=== PATIENT | male | born 1965 | race Caucasian/White ===

== ENCOUNTER 2019-06-02 00:29 | Outpatient (CLI) | payer OTHER, SELFPAY ==
--- NOTE | 2019-06-02 08:00 | DI.NM_ITS ---
SYMPTOMS/DIAGNOSIS: NAUSEA, VOMITING, NOT IMPROVED AFTER PYLORIC DILATATION, R11.2, PENDING PYLOROPLASTY GASTRIC EMPTYING STUDY: The patient consumed a pack of oatmeal, two pieces of bread diluted in 120 cc's of water mixed with a 1.1 millicurie of Technetium 99 M Sulfur Colloid. At one hour 58.3%,.at two hours 21.6% and at 4 hours 15.9% of the activity remains. These values are within normal limits and are consistent with a 88% gastric emptying.
== END 2019-06-02 00:49 ==
PROVIDERS: Visit Provider Surgery
DX: R11.2 Nausea with vomiting, unspecified (principal); Z98.890 Other specified postprocedural states
CPT/HCPCS: 78265

== ENCOUNTER 2022-06-27 08:27 | Observation (INO) | payer OTHER, SELFPAY ==
[2022-06-27] VITALS (49 sets, daily range): BP systolic 123–210; BP diastolic 68–126; PULSE 66–107; RESP 11–28; TEMP 36.4–37.1; O2SAT 89–99
--- NOTE | 2022-06-27 08:45 | RT.EKG_ITS ---
APPROVED REPORT Exam: Resting ECG Reason for Exam: WEAKNESS Patient Location: E HR:92 bpm ECG Measurements Heart Rate 92 AXIS VT 147 P 60 QRSd 103 QRS -20 QT 376 T 13 QTc 466 Conclusion Sinus rhythm...normal P axis, V-rate 60- 99
[2022-06-27 09:00] LABS: Abs Immature Grans 0.04 10^3/uL (0.0-0.06); Absolute Basophil Count 0.03 10^3/uL (0.0-0.2); Absolute Eosinophil Count 0.04 10^3/uL (0.0-0.7); Absolute Lymphocyte Count 0.91 10^3/uL (1.2-3.4); Absolute Monocyte Count 0.44 10^3/uL (0.1-0.8); Absolute Neutrophil Count 6.84 10^3/uL (1.2-6.7); Basophils % 0.4; Eosinophils % 0.5; HCT 41.3 % (40.0-50.0); HGB 14.1 g/dL (13.5-17.5); Immature Grans % 0.5; MCH 27.8 pg (27.0-33.0); MCHC 34.1 % (32.0-36.0); MCV 82 fL (80-95); MPV 12.4 fL (8.0-11.0); Monocytes % 5.3; Neutrophils % 82.3; Platelet Count 190 10^3/uL (130-400); RBC 5.07 10^6/uL (4.36-5.78); RDW 13.2 % (11.8-14.1)
[2022-06-27 09:14] LABS: ALT 40 U/L (16-63); AST 27 U/L (15-37); Alkaline Phosphatase 133 U/L (46-116); Anion Gap 10.4 mmol/L (3-11); BUN 15 mg/dL (7-18); Bilirubin, Total 1.1 mg/dL (0.2-1.0); CO2 26.6 mmol/L (21.0-32.0); CREATININE 0.9 mg/dL (0.70-1.30); Calcium 9.1 mg/dL (8.5-10.1); Chloride 101 mmol/L (98-107); Glucose 156 mg/dL (74-106); Potassium 3.2 mmol/L (3.5-5.1); Sodium 138 mmol/L (136-145); Total Protein 7.6 g/dL (6.4-8.2)
[2022-06-27] MEDS: Normal Saline 1,000 ML 1000 ML IV (09:33)
[2022-06-27] MEDS: Droperidol 5 MG/2 ML VIAL 2.5 MG IVP ×2 (09:33→10:43)
[2022-06-27] MEDS: diphenhydrAMINE 50 MG/ML VIAL 25 MG IVP (12:00)
[2022-06-27] MEDS: Metoclopramide 10 MG/2 ML VIAL IVP (12:00)
[2022-06-27] MEDS: Normal Saline 100 ML 50 ML (12:03)
--- NOTE | 2022-06-27 12:35 | W.ED.GENAD ---
Discharge Plan Disposition Patient Disposition: [facility] INPATIENT Condition: Stable Discharge Details Clinical Impression: Cyclical vomiting Admit Date/Time: 06/27/22 12:42 Admit Provider: Nishant Quinonez Attending Provider: Nishant Quinonez Primary Care Provider: CHARLES NOEL ED Provider: Charisse Valadez Discharge Data Discharge Date/Time-TO BE ENTERED AT DEPARTURE: 06/27/22 13:41 Medical Decision Making Patient appears well initially, he has not actively vomiting He is received numerous doses of medication and is persistently symptomatic Received 5 mg of droperidol, Reglan, Benadryl, Ativan, still dry heaving when I entered the room Potassium of 3.2, is unable to tolerate p.o., given IV potassium Case discussed with Dr. Quinonez who is agreeable to admission Medical Records Medical records reviewed: Yes I reviewed the patient's medical records. HPI General Date/Time Provider Initiated Documentation: 06/27/22 08:49. HPI Narrative: This 56-year-old male with past medical history of cyclic vomiting syndrome presents with report of uncontrolled vomiting for the past week. Reportedly was assessed at [facility] this morning and discharged home without evaluation. Denies any chest pain, abdominal pain, shortness of breath. States he has had this for years and when the nausea and vomiting becomes uncontrolled similar to this, it worsening. He does not smoke marijuana or use any illicit drugs. He denies any Inciting factors from a mental health standpoint. Denies any blood in vomitus. Denies any diarrhea. Related Data Home Medications Medication Instructions Recorded Confirmed albuterol sulfate 90 mcg/actuation 2 puff inhalation Q4H PRN 04/28/22 06/27/22 aerosol inhaler (ProAir HFA) amitriptyline 25 mg tablet 25 mg PO DAILY 04/28/22 06/27/22 amlodipine 10 mg tablet 10 mg PO DAILY 04/28/22 06/27/22 budesonide-formoterol HFA 80 2 puff inhalation BID 04/28/22 04/29/22 mcg-4.5 mcg/actuation aerosol inhaler (Symbicort) cyclobenzaprine 10 mg tablet 10 mg PO TID PRN 04/28/22 04/29/22 epinephrine 0.3 mg/0.3 mL 0.3 mg IM DIRECTED 04/28/22 04/29/22 injection, auto-injector (EpiPen) escitalopram oxalate 20 mg tablet 20 mg PO DAILY 04/28/22 06/27/22 (Lexapro) loratadine 10 mg tablet (Claritin) 10 mg PO DAILY 04/28/22 04/29/22 magnesium gluconate 27 mg 27 mg PO DAILY 04/28/22 04/29/22 magnesium (500 mg) tablet melatonin 3 mg capsule 3 mg PO HS PRN 04/28/22 04/29/22 mirtazapine 30 mg tablet 30 mg PO DAILY 04/28/22 06/27/22 nabumetone 500 mg tablet (Relafen) 500 mg PO BID 04/28/22 04/29/22 omeprazole 40 mg capsule,delayed 40 mg PO DAILY 04/28/22 04/29/22 release polyethylene glycol 3350 17 17 g PO DAILY PRN 04/28/22 04/29/22 gram/dose oral powder (Miralax) prochlorperazine 25 mg rectal 25 mg [place] BID PRN 04/28/22 04/29/22 suppository (Compazine) prochlorperazine maleate 10 mg 10 mg PO Q6H PRN 04/28/22 tablet (Compazine) risperidone 1 mg tablet 1 mg PO DAILY 04/28/22 04/29/22 sumatriptan 20 mg/actuation nasal 20 mg intranasal Q2H PRN 04/28/22 04/29/22 spray tamsulosin 0.4 mg capsule 0.4 mg PO DAILY 04/28/22 04/29/22 ibuprofen 800 mg tablet 800 mg PO PRN PRN 06/27/22 06/27/22 metoprolol succinate 50 mg 50 mg PO DAILY 06/27/22 06/27/22 tablet,extended release 24 hr Allergies Allergy/AdvReac Type Severity Reaction Status Date / Time peanut Allergy Severe Anaphylaxis Verified 06/27/22 08:37 tree nut Allergy Severe Anaphylaxis Verified 06/27/22 08:37 acetaminophen [From Vicodin] Allergy vomiting Verified 06/27/22 08:37 egg Allergy Vomiting Verified 06/27/22 08:37 Fish Containing Products Allergy vomiting Verified 06/27/22 08:37 house dust mite Allergy Verified 06/27/22 08:37 hydrochlorothiazide Allergy laryngeal Verified 06/27/22 08:37 spasm hydrocodone [From Vicodin] Allergy vomiting Verified 06/27/22 08:37 metoclopramide [From Reglan] Allergy Hives Verified 06/27/22 08:37 mold Allergy Verified 06/27/22 08:37 General Stated Complaint: Nausea/Vomit/Diar FADI: 3 Review of Systems All systems reviewed & are unremarkable except as noted in HPI and below PFSH All Active Problems (Updated 06/30/22 @ 14:03 by ELEN Lopez) Cyclical vomiting (Acute) Tinnitus, bilateral (Acute) Sensorineural hearing loss (SNHL) of both ears (Acute) Sensation of fullness in right ear (Acute) Medical History (Updated 06/30/22 @ 14:03 by ELEN Lopez) Adult ADHD Allergic rhinitis Chest pain Dysuria GERD (gastroesophageal reflux disease) Hypertensive disorder Insomnia Jaw pain Mild intermittent asthma Nausea and vomiting Obesity CARLOS (obstructive sleep apnea) Otitis externa of right ear Peanut-induced anaphylaxis Pyloric stenosis Severe recurrent major depression without psychotic features Suicidal thoughts Temporomandibular joint disorder Tremor Unilateral inguinal hernia Surgical History (Updated 04/29/22 @ 11:08 by Joselyn QUINONEZ) H/O colonoscopy H/O endoscopy 06/10/2019 upper gastrointestinal endoscopy w/ dilation of gastric outlet for obstruction H/O hernia repair History of esophagogastroduodenoscopy (EGD) 05/12/2019 hiatal hernia History of hand surgery History of hydrocelectomy Family History Father Depressive disorder Arteriosclerotic cardiovascular disease (ASCVD) Social History (Updated 04/29/22 @ 11:08 by Joselyn QUINONEZ) Smoking/Tobacco Use Status: Never Smoking risk assessment performed?: Yes Alcohol Intake: former Drug use: Never Substance use type: does not use Communication Needs: Corrective Lenses 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 Do you feel safe at home: Yes Do you feel safe in your relationship?: Yes Exam Const General: cooperative and comfortable Orientation: alert and oriented x3 Eyes Pupils: PERRL Chest Chest: normal inspection of the chest Resp Effort & Inspection: normal respiratory effort Auscultation: clear to auscultation bilaterally Cardio Rate: regular rate GI Auscultation: normal bowel sounds Rectal Exam: visual inspection normal Other: non-tender Skin General skin exam: no rashes or lesions noted Neuro General: patient alert and patient oriented x3 Course Vital Signs Vital signs: Vital Signs Temperature 36.4 C L 06/27/22 08:35 Pulse 96 H 06/27/22 08:35 Respiratory Rate 18 06/27/22 08:35 Blood Pressure 210/126 H 06/27/22 08:35 Pulse Oximetry 95 06/27/22 08:35 Temperature 36.4 C L 06/27/22 08:35 Temperature Source Temporal Artery Scan 06/27/22 08:35 Pulse 87 06/27/22 10:46 Pulse 94 H 06/27/22 10:50 Respiratory Rate 24 06/27/22 10:50 Respiratory Effort Non-Labored 06/27/22 08:37 Blood Pressure 183/98 H 06/27/22 10:46 Blood Pressure Mean 120 06/27/22 10:46 Blood Pressure Position Sitting 06/27/22 08:35 Pulse Oximetry 96 06/27/22 10:50 Oxygen Delivery Method Room Air 06/27/22 08:35 Oxygen Flow Rate 0 06/27/22 08:35 Lab/Test Results Lab/Test Results: Laboratory Tests Range/Units 06/27/22 06/27/22 06/27/22 08:53 08:53 08:53 WBC (4.4-10.8) 10^3/uL 8.30 RBC (4.36-5.78) 10^6/uL 5.07 Hgb (13.5-17.5) g/dL 14.1 Hct (40.0-50.0) % 41.3 MCV (80-95) fL 82 MCH (27.0-33.0) pg 27.8 MCHC (32.0-36.0) % 34.1 RDW (11.8-14.1) % 13.2 Plt Count (130-400) 10^3/uL 190 MPV (8.0-11.0) fL 12.4 H Immature Gran % 0.5 Neutrophils % 82.3 Lymphocytes % 11.0 Monocytes % 5.3 Eosinophils % 0.5 Basophils % 0.4 Nucleated RBC % (0.0-0.3) % 0.0 Absolute Neutrophils (1.2-6.7) 10^3/uL 6.84 H Absolute Lymphocytes (1.2-3.4) 10^3/uL 0.91 L Absolute Monocytes (0.1-0.8) 10^3/uL 0.44 Absolute Eosinophils (0.0-0.7) 10^3/uL 0.04 Absolute Basophils (0.0-0.2) 10^3/uL 0.03 Sodium (136-145) mmol/L 138 Potassium (3.5-5.1) mmol/L 3.2 L Chloride (98-107) mmol/L 101 Carbon Dioxide (21.0-32.0) mmol/L 26.6 Anion Gap (3-11) mmol/L 10.4 BUN (7-18) mg/dL 15 Creatinine (0.70-1.30) mg/dL 0.9 Estimated GFR/1.73 m2 (mL/min/1.73m2) >= 60.00 Glucose (74-106) mg/dL 156 H Calcium (8.5-10.1) mg/dL 9.1 Magnesium (1.8-2.4) mg/dL 2.0 Total Bilirubin (0.2-1.0) mg/dL 1.1 H AST (15-37) U/L 27 ALT (16-63) U/L 40 Alkaline Phosphatase (46-116) U/L 133 H Total Protein (6.4-8.2) g/dL 7.6 Albumin (3.4-5.0) g/dL 4.0
[2022-06-27 13:01] LABS: Source Nasal/Nares
[2022-06-27] MEDS: LORazepam 20 MG/10 ML VIAL IVP (13:18)
--- NOTE | 2022-06-27 13:26 | HPE_ITS ---
Date of service: 06/27/22 Time of Service: 13:27 Assessment and Plan Assessment and plan (1) Cyclical vomiting: Status: Acute Assessment and plan: referred to observation IV fluids antiemetics plan discharge to home tomorrow if continues to improvement discussed with DR Quinonez History of Present Illness History of Present Illness Chief Complaint: nausea and vomitting. Narrative: This 56-year-old male with past medical history of cyclic vomiting syndrome presents with report of uncontrolled vomiting for the past week, seen at [facility] earlier in the day and was discharged home.? Denies any chest pain, abdominal pain, shortness of breath.? He does not smoke marijuana or use any illicit drugs.? work up shows no acute medical explanation. He received 5 mg of droperidol, Reglan, Benadryl, Ativan, in addition to IV potassium but was still not able to tolerate PO. hospitalist services was contacted and will refer to observation for fluids and symptom management. Review of Systems All systems reviewed & are unremarkable except as noted in HPI and below ENT Ears, Nose, Mouth, and Throat: Denies vertigo and Denies dizziness Gastrointestinal Gastrointestinal: Denies abdominal pain, Denies constipation, Denies diarrhea, Reports nausea and Reports vomiting Neurologic Neurologic: Denies vertigo and Denies dizziness PFSH All Active Problems (Updated 06/27/22 @ 17:28 by Lindsay Rowe NP) Cyclical vomiting (Acute) Tinnitus, bilateral (Acute) Sensorineural hearing loss (SNHL) of both ears (Acute) Sensation of fullness in right ear (Acute) Medical History (Updated 06/27/22 @ 17:28 by Lindsay Rowe NP) Adult ADHD Allergic rhinitis Chest pain Dysuria GERD (gastroesophageal reflux disease) Hypertensive disorder Insomnia Jaw pain Mild intermittent asthma Nausea and vomiting Obesity CARLOS (obstructive sleep apnea) Otitis externa of right ear Peanut-induced anaphylaxis Pyloric stenosis Severe recurrent major depression without psychotic features Suicidal thoughts Temporomandibular joint disorder Tremor Unilateral inguinal hernia Surgical History (Updated 04/29/22 @ 11:08 by Joselyn QUINONEZ) H/O colonoscopy H/O endoscopy 06/10/2019 upper gastrointestinal endoscopy w/ dilation of gastric outlet for obstruction H/O hernia repair History of esophagogastroduodenoscopy (EGD) 05/12/2019 hiatal hernia History of hand surgery History of hydrocelectomy Family History Father Depressive disorder Arteriosclerotic cardiovascular disease (ASCVD) Social History (Updated 04/29/22 @ 11:08 by Joselyn QUINONEZ) Smoking/Tobacco Use Status: Never Smoking risk assessment performed?: Yes Alcohol Intake: former Drug use: Never Substance use type: does not use Communication Needs: Corrective Lenses 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 Do you feel safe at home: Yes Do you feel safe in your relationship?: Yes Meds Allergies and Home Medications Allergies Allergy/AdvReac Type Severity Reaction Status Date / Time peanut Allergy Severe Anaphylaxis Verified 06/27/22 08:37 tree nut Allergy Severe Anaphylaxis Verified 06/27/22 08:37 acetaminophen [From Vicodin] Allergy vomiting Verified 06/27/22 08:37 egg Allergy Vomiting Verified 06/27/22 08:37 Fish Containing Products Allergy vomiting Verified 06/27/22 08:37 house dust mite Allergy Verified 06/27/22 08:37 hydrochlorothiazide Allergy laryngeal Verified 06/27/22 08:37 spasm hydrocodone [From Vicodin] Allergy vomiting Verified 06/27/22 08:37 metoclopramide [From Reglan] Allergy Hives Verified 06/27/22 08:37 mold Allergy Verified 06/27/22 08:37 Home Medications Medication Instructions Recorded Confirmed Type albuterol sulfate 90 mcg/actuation 2 puff inhalation Q4H PRN 04/28/22 06/27/22 History aerosol inhaler (ProAir HFA) amitriptyline 25 mg tablet 25 mg PO DAILY 04/28/22 06/27/22 History amlodipine 10 mg tablet 10 mg PO DAILY 04/28/22 06/27/22 History budesonide-formoterol HFA 80 2 puff inhalation BID 04/28/22 04/29/22 History mcg-4.5 mcg/actuation aerosol inhaler (Symbicort) cyclobenzaprine 10 mg tablet 10 mg PO TID PRN 04/28/22 04/29/22 History epinephrine 0.3 mg/0.3 mL 0.3 mg IM DIRECTED 04/28/22 04/29/22 History injection, auto-injector (EpiPen) escitalopram oxalate 20 mg tablet 20 mg PO DAILY 04/28/22 06/27/22 History (Lexapro) loratadine 10 mg tablet (Claritin) 10 mg PO DAILY 04/28/22 04/29/22 History magnesium gluconate 27 mg 27 mg PO DAILY 04/28/22 04/29/22 History magnesium (500 mg) tablet melatonin 3 mg capsule 3 mg PO HS PRN 04/28/22 04/29/22 History mirtazapine 30 mg tablet 30 mg PO DAILY 04/28/22 06/27/22 History nabumetone 500 mg tablet (Relafen) 500 mg PO BID 04/28/22 04/29/22 History omeprazole 40 mg capsule,delayed 40 mg PO DAILY 04/28/22 04/29/22 History release polyethylene glycol 3350 17 17 g PO DAILY PRN 04/28/22 04/29/22 History gram/dose oral powder (Miralax) prochlorperazine 25 mg rectal 25 mg IN BID PRN 04/28/22 04/29/22 History suppository (Compazine) prochlorperazine maleate 10 mg 10 mg PO Q6H PRN 04/28/22 History tablet (Compazine) risperidone 1 mg tablet 1 mg PO DAILY 04/28/22 04/29/22 History sumatriptan 20 mg/actuation nasal 20 mg intranasal Q2H PRN 04/28/22 04/29/22 History spray tamsulosin 0.4 mg capsule 0.4 mg PO DAILY 04/28/22 04/29/22 History ibuprofen 800 mg tablet 800 mg PO PRN PRN 06/27/22 06/27/22 History metoprolol succinate 50 mg 50 mg PO DAILY 06/27/22 06/27/22 History tablet,extended release 24 hr Exam Const General: cooperative, comfortable and no acute distress Nutritional Appearance: obese Orientation: alert, awake and oriented x3 [facility] Head: normal to inspection, normocephalic and atraumatic Mouth: oral mucosae normal Resp Effort & Inspection: normal respiratory effort Auscultation: clear to auscultation bilaterally Cardio Rate: regular rate Rhythm: regular rhythm GI Inspection: normal to inspection and distended Palpation: soft and nontender Skin General skin exam: no rashes or lesions noted Neuro General: patient alert, patient awake and patient oriented x3 Extrem General: normal to inspection and full ROM Results Labs Result diagrams: 06/27/22 08:53 06/27/22 08:53 Labs: Laboratory Results - last 24 hr 06/27/22 06/27/22 06/27/22 08:53 08:53 08:53 WBC 8.30 RBC 5.07 Hgb 14.1 Hct 41.3 MCV 82 MCH 27.8 MCHC 34.1 RDW 13.2 Plt Count 190 MPV 12.4 H Immature Gran % 0.5 Neutrophils % 82.3 Lymphocytes % 11.0 Monocytes % 5.3 Eosinophils % 0.5 Basophils % 0.4 Nucleated RBC % 0.0 Absolute Neutrophils 6.84 H Absolute Lymphocytes 0.91 L Absolute Monocytes 0.44 Absolute Eosinophils 0.04 Absolute Basophils 0.03 Sodium 138 Potassium 3.2 L Chloride 101 Carbon Dioxide 26.6 Anion Gap 10.4 BUN 15 Creatinine 0.9 Estimated GFR/1.73 m2 >= 60.00 Glucose 156 H Calcium 9.1 Magnesium 2.0 Total Bilirubin 1.1 H AST 27 ALT 40 Alkaline Phosphatase 133 H Total Protein 7.6 Albumin 4.0 COVID-19 Source 06/27/22 12:52 WBC RBC Hgb Hct MCV MCH MCHC RDW Plt Count MPV Immature Gran % Neutrophils % Lymphocytes % Monocytes % Eosinophils % Basophils % Nucleated RBC % Absolute Neutrophils Absolute Lymphocytes Absolute Monocytes Absolute Eosinophils Absolute Basophils Sodium Potassium Chloride Carbon Dioxide Anion Gap BUN Creatinine Estimated GFR/1.73 m2 Glucose Calcium Magnesium Total Bilirubin AST ALT Alkaline Phosphatase Total Protein Albumin COVID-19 Source Nasal/Nares Last Vital Signs Temp 36.4 C L 06/27/22 08:35 Pulse 86 06/27/22 13:16 Resp 20 06/27/22 13:20 BP 132/68 06/27/22 13:16 Pulse Ox 89 L 06/27/22 13:20
[2022-06-27 13:36] LABS: COVID-19 PCR Negative (Negative)
[2022-06-27] MEDS: POTASSIUM CHLORIDE 10 MEQ/100 ML BAG 100 MEQ IVPB (14:09)
[2022-06-27] MEDS: Lactated Ringers 1,000 ML 100 ML IV (14:09)
[2022-06-27] MEDS: Nabumetone 500 MG TAB PO (19:34)
[2022-06-27] MEDS: Melatonin 3 MG TAB PO (21:05)
[2022-06-27] MEDS: Budesonide/Formoterol 80/4.5 6.9 GM 60 PUFF INH IH (21:06)
[2022-06-28] MEDS: Lactated Ringers 1,000 ML 100 ML IV (00:36)
[2022-06-28 06:00] VITALS: BP 158/97; PULSE 104; RESP 22; TEMP 36.6; O2SAT 96
[2022-06-28 06:17] LABS: Anion Gap 7.1 mmol/L (3-11); BUN 8 mg/dL (7-18); CO2 31.9 mmol/L (21.0-32.0); CREATININE 0.8 mg/dL (0.70-1.30); Calcium 8.3 mg/dL (8.5-10.1); Chloride 101 mmol/L (98-107); Glucose 124 mg/dL (74-106); Potassium 3.2 mmol/L (3.5-5.1); Sodium 140 mmol/L (136-145)
[2022-06-28] MEDS: Mirtazapine 15 MG TAB 30 MG PO (08:08)
[2022-06-28] MEDS: Loratidine 10 MG TAB PO (08:08)
[2022-06-28] MEDS: Nabumetone 500 MG TAB PO (08:08)
[2022-06-28] MEDS: Amitriptyline 25 MG TAB PO (08:08)
[2022-06-28] MEDS: Tamsulosin 0.4 MG CAPCR PO (08:08)
[2022-06-28] MEDS: Escitalopram 20 MG TAB PO (08:08)
[2022-06-28] MEDS: Omeprazole 20 MG CAPCR 40 MG PO (08:08)
[2022-06-28] MEDS: Metoprolol CR 50 MG TABCR PO (08:08)
[2022-06-28] MEDS: amLODIPine 10 MG TAB PO (08:08)
[2022-06-28] MEDS: Budesonide/Formoterol 80/4.5 6.9 GM 60 PUFF INH IH (08:10)
--- NOTE | 2022-06-28 10:06 | W.PM.DS.N ---
Date of service: 06/28/22 Time of Service: 10:12 DS: Diagnosis Discharge Diagnosis (1) Cyclical vomiting: Status: Acute Discharge Plan Disposition Patient Disposition: HOME Condition: Stable Discharge Details Reason For Visit: cyclic vomiting Admit Date/Time: 06/27/22 12:42 Admit Provider: Nishant Quinonez Attending Provider: Nishant Quinonez Primary Care Provider: CHARLES NOEL Hospital Course Hospital Course: This 56-year-old male with past medical history of cyclic vomiting syndrome. He presented to the [facility] emergency department 06/27/2022, with report of uncontrolled vomiting for the past week. He states he went to the emergency department at [facility] earlier in the day and was discharged home. He denied any chest pain, abdominal pain, shortness of breath.? He does not smoke marijuana or use any illicit drugs.?There is no evidence of an acute medical explanation.? He received 5 mg of droperidol, Reglan, Benadryl, Ativan, in addition to IV potassium in the ED but was still not able to tolerate PO.?He was admitted for IV hydration. Within 30 minutes of his admission his vomiting resolved. He was hydrated over night, ate breakfast without issue and is going home today with family. He does not need any services. Discussed with Dr Quinonez. Home Meds and New Rx's Prescriptions: Continued amitriptyline 25 mg tablet 25 mg PO DAILY amlodipine 10 mg tablet 10 mg PO DAILY loratadine [Claritin] 10 mg tablet 10 mg PO DAILY prochlorperazine maleate [Compazine] 10 mg tablet 10 mg PO Q6H PRN prochlorperazine [Compazine] 25 mg suppository 25 mg [place] BID PRN cyclobenzaprine 10 mg tablet 10 mg PO TID PRN epinephrine [EpiPen] 0.3 mg/0.3 mL auto-injector 0.3 mg IM DIRECTED Rx Instructions: as a single dose; may repeat once escitalopram oxalate [Lexapro] 20 mg tablet 20 mg PO DAILY magnesium gluconate 27 mg magnesium (500 mg) tablet 27 mg PO DAILY melatonin 3 mg capsule 3 mg PO HS PRN polyethylene glycol 3350 [Miralax] 17 gram/dose powder 17 g PO DAILY PRN mirtazapine 30 mg tablet 30 mg PO DAILY omeprazole 40 mg capsule,delayed release(DR/EC) 40 mg PO DAILY albuterol sulfate [ProAir HFA] 90 mcg/actuation HFA aerosol inhaler 2 puff inhalation Q4H PRN nabumetone [Relafen] 500 mg tablet 500 mg PO BID risperidone 1 mg tablet 1 mg PO DAILY sumatriptan 20 mg/actuation spray,non-aerosol 20 mg intranasal Q2H PRN budesonide-formoterol [Symbicort] 80-4.5 mcg/actuation HFA aerosol inhaler 2 puff inhalation BID tamsulosin 0.4 mg capsule 0.4 mg PO DAILY ibuprofen 800 mg Tablet 800 mg PO PRN PRN metoprolol succinate 50 mg tablet extended release 24 hr 50 mg PO DAILY Label Comments: TAKE ONE TABLET BY MOUTH EVERY DAY Discharge Instructions Instructions: Cyclic Vomiting Syndrome (DC) Additional Instructions: Follow up with your PCP as needed. Continue home medicaitons. Stand Alone Forms: Nursing Discharge Form Referrals: CHARLES NOEL [Primary Care Provider] - (1-2 weeks.) Activity:: Activity as Tolerated Equipment/Supplies:: No Equipment Needed Diet:: As Tolerated Discharge Orders Discharge Orders: Discharge Order (Routine); Ordered 06/28/22 Ordered By: Nicolette Polanco Discharge Data Discharge Date/Time-TO BE ENTERED AT DEPARTURE: 06/28/22 11:07 DS: Summary Time Spent with Patient providing and/or coordinating discharge services: Less than 30 minutes Status at Discharge Functional status at discharge: independent ambulation Overall status at discharge: patient is back to baseline Mental Status: mental status grossly normal Speech and Movement: speech and movement normal Mood: congruent mood Affect: normal affect Exam Const General: cooperative, comfortable and no acute distress Nutritional Appearance: obese Orientation: alert, awake and oriented x3 HEN[facility] Head: normal to inspection, normocephalic and atraumatic Mouth: oral mucosae normal Resp Effort & Inspection: normal respiratory effort Auscultation: clear to auscultation bilaterally Cardio Rate: regular rate Rhythm: regular rhythm GI Inspection: normal to inspection and distended Palpation: soft and nontender Skin General skin exam: no rashes or lesions noted Neuro General: patient alert, patient awake and patient oriented x3 Extrem General: normal to inspection and full ROM Psych Mental Status: mental status grossly normal Speech and Movement: speech and movement normal Mood: congruent mood Affect: normal affect DS: Data Vitals/I&O Vitals and I&O: Vital Signs Temperature 36.6 C 06/28/22 06:00 Temperature Source Tympanic 06/28/22 06:00 Pulse 104 H 06/28/22 06:00 Pulse Rhythm Regular 06/28/22 08:50 Pulse 98 H 06/27/22 13:20 Respiratory Rate 22 06/28/22 06:00 Respiratory Effort 06/28/22 08:50 Respiratory Depth Normal 06/28/22 08:50 Respiratory Pattern Normal 06/28/22 08:50 Blood Pressure 158/97 H 06/28/22 06:00 Blood Pressure Mean 78 06/27/22 13:16 Blood Pressure Position Sitting 06/27/22 08:35 Pulse Oximetry 96 06/28/22 06:00 Oxygen Delivery Method Room Air 06/28/22 06:00 Oxygen Flow Rate 0 06/28/22 06:00 Pain Level 0 06/27/22 22:54 Comment 06/28/22 06:00 Intake & Output 06/27/22 06/27/22 06/28/22 11:59 23:59 11:59 Intake Total 1000 / 1840 840 / 1840 1460 / 1460 Output Total 2500 / 2500 1300 / 1300 Balance 1000 / -660 -1660 / -660 160 / 160 Weight 117.934 kg Intake: IV 1000 / 1100 100 / 1100 1000 / 1000 Oral 740 / 740 460 / 460 Output: Urine 2500 / 2500 1300 / 1300 Other: Urine Color Yellow Urine Appearance Clear Clear Urine Odor Normal Emesis Description None Voiding Methods Toilet Toilet Data Completed and Pending Labs on day of discharge: Labs from last 24 hours 06/28/22 06/27/22 06:00 12:52 Sodium 140 Potassium 3.2 L Chloride 101 Carbon Dioxide 31.9 Anion Gap 7.1 BUN 8 Creatinine 0.8 Estimated GFR/1.73 m2 >= 60.00 Glucose 124 H Calcium 8.3 L COVID-19 Source Nasal/Nares SARS-CoV-2 (PCR) Negative PFSH All Active Problems (Updated 06/27/22 @ 17:28 by Lindsay Rowe NP) Cyclical vomiting (Acute) Tinnitus, bilateral (Acute) Sensorineural hearing loss (SNHL) of both ears (Acute) Sensation of fullness in right ear (Acute) Medical History (Updated 06/27/22 @ 17:28 by Lindsay Rowe NP) Adult ADHD Allergic rhinitis Chest pain Dysuria GERD (gastroesophageal reflux disease) Hypertensive disorder Insomnia Jaw pain Mild intermittent asthma Nausea and vomiting Obesity CARLOS (obstructive sleep apnea) Otitis externa of right ear Peanut-induced anaphylaxis Pyloric stenosis Severe recurrent major depression without psychotic features Suicidal thoughts Temporomandibular joint disorder Tremor Unilateral inguinal hernia Surgical History (Updated 04/29/22 @ 11:08 by Joselyn QUINONEZ) H/O colonoscopy H/O endoscopy 06/10/2019 upper gastrointestinal endoscopy w/ dilation of gastric outlet for obstruction H/O hernia repair History of esophagogastroduodenoscopy (EGD) 05/12/2019 hiatal hernia History of hand surgery History of hydrocelectomy Family History Father Depressive disorder Arteriosclerotic cardiovascular disease (ASCVD) Social History (Updated 04/29/22 @ 11:08 by Joselyn QUINONEZ) Smoking/Tobacco Use Status: Never Smoking risk assessment performed?: Yes Alcohol Intake: former Drug use: Never Substance use type: does not use Communication Needs: Corrective Lenses 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
[2022-06-28 10:21] VITALS: BP 154/101; PULSE 95; RESP 20; TEMP 36.6; O2SAT 95
[2022-06-28 10:42] VITALS: BP 140/92
== END 2022-06-28 11:07 | disposition home or self-care (01) ==
LOC: ER 12:50 → MS 13:41
PROVIDERS: Admitting Provider Family Medicine; Emergency Provider Physician Assistant; PCP Family Medicine; Visit Provider Family Medicine
DX: R11.15 Cyclical vomiting syndrome unrelated to migraine (principal); Z20.822 Contact with and (suspected) exposure to COVID-19; H93.13 Tinnitus, bilateral; H90.3 Sensorineural hearing loss, bilateral; F90.9 Attention-deficit hyperactivity disorder, unspecified type; J30.9 Allergic rhinitis, unspecified; K21.9 Gastro-esophageal reflux disease without esophagitis; I10 Essential (primary) hypertension; G47.00 Insomnia, unspecified; J45.20 Mild intermittent asthma, uncomplicated; G47.33 Obstructive sleep apnea (adult) (pediatric); E66.9 Obesity, unspecified; Z68.37 Body mass index [BMI] 37.0-37.9, adult; K31.1 Adult hypertrophic pyloric stenosis; F33.2 Major depressive disorder, recurrent severe without psychotic features; R25.1 Tremor, unspecified; Z79.899 Other long term (current) drug therapy
CPT/HCPCS: 36415; 80048; 80053; 87635; 93005; 94640; 96361; 96365; 96374; 96375; 96376; 99285; 83735; 85025; 93010; 99217; 99219; G0378; J1200; J1790; J2765; J3480; J3490

== ENCOUNTER 2023-03-04 15:52 | Outpatient (CLI) | payer OTHER, SELFPAY ==
--- NOTE | 2023-03-04 06:00 | DI.RAD_ITS ---
Exam(s) XR PAIN CLINIC LUMBAR SP 2V EXAM: XR PAIN CLINIC LUMBAR SP 2V CLINICAL HISTORY: Dx: Lumbar Spondylosis. TECHNIQUE: Fluoroscopy was provided for the referring physician for guidance with performing pain cl inic injection procedure. COMPARISON: No exams were available for comparison FINDINGS: Please see procedure note for details. Fluoro time: 36.3 seconds RADIATION DOSE DELIVERED: tony Murcia=17.24 mGy
[2023-03-04 16:26] VITALS: BP 159/100; PULSE 101; RESP 20; TEMP 36.6; O2SAT 95
--- NOTE | 2023-03-04 17:06 | PDOC.PAIN ---
Date of service: 03/04/23 Time of Service: 17:14 Pain Clinic Procedure Note Procedure Note Procedure Note: Lumbar/Sacral Medial Branch Blocks Joe Garcia has been referred to the [facility] for lumbar/sacral medial branch blocks. COMMENTS: I evaluated him in the office on 11/06/22. His symptoms are the same as they were at that time. Dx: Lumbosacral spondylosis without myelopathy Pre-procedure pain VAS was 4/10 Patient was interviewed and the medical record reviewed. There were no medical, pharmacologic, radiographic or other structural contraindications to attempting fluoroscopically guided local anesthetic lumbar/sacral medial branch blocks. Risks and expected side effects as well as potential benefit of the procedure were reviewed and voiced concerns addressed. The printed consent form was signed and witnessed. Standard time-out procedure was performed. Patient was placed in the prone position on the fluoroscopy table and automated blood pressure cuff and pulse oximeter applied. The skin entry points for approaching the anatomic target points of the segmental medial branches of left L2-L5 were identified with fluoroscopy and marked. Following thorough Chlorhexadine preparation of the skin and draping, a 25 gauge 3.5 spinal needle was placed under fluoroscopic guidance down on to the target point for each respective segmental medial branch. Position was confirmed in A/P, oblique and lateral views with 0.25ml of omnipaque 240. At this point I injected 0.5ml of 0.5% Bupivacaine at each segmental sensory nerve. Vital signs were stable throughout the procedure and were as recorded in the docflowsheet by the nursing staff. Follow up plans and appointments were discussed and was instructed to keep careful note of how the usual pain was modified by these injections. Specifically was asked to keep a pain diary for the next 4 hours using a numeric pain scale of 0-10 and report these results at the follow-up visit. Post procedure instruction was given as documented in the nursing documentation and having met discharge criteria. Patient was discharged from the [facility]. Based on the medial branches blocked today, if the patient has adequate relief and we are able to proceed to radiofrequency ablation, the treatment should result in the denervation of the left L3-L4, L4-L5 and L5-S1 FACET JOINTS. We would expect to denervate a total of 3 facets during the radiofrequency ablation. COMMENTS: Post-procedure pain VAS was 0/10. Julián Humphries DO, MPH [facility] CC: CHARLES NOEL
[2023-03-04 17:08] VITALS: BP 192/90; PULSE 68; RESP 18; O2SAT 99
[2023-03-04] MEDS: Omnipaque 240 MG/ML 50 ML BTL IJ (18:43)
[2023-03-04] MEDS: Bupivacaine 0.5% Pres-Free 10 ML VIAL IJ (18:43)
== END 2023-03-04 15:53 | disposition home or self-care (01) ==
LOC: PC 15:53
PROVIDERS: PCP Family Medicine; Visit Provider Preventive Medicine Occupational Medicine
DX: M47.817 Spondylosis without myelopathy or radiculopathy, lumbosacral region (principal)
CPT/HCPCS: 64493; 64494; 64495; 72100; Q9967

== ENCOUNTER 2024-07-07 10:43 | Observation (INO) | payer BC, SELFPAY ==
[2024-07-07] VITALS (22 sets, daily range): BP systolic 106–148; BP diastolic 62–90; PULSE 64–90; RESP 10–20; TEMP 36.1–36.6; O2SAT 93–100; BMI 40.3
[2024-07-07] MEDS: Lactated Ringers 1,000 ML 80 ML IV (07:24)
--- NOTE | 2024-07-07 07:30 | W.ANESPRE ---
General Info Date of Service Date Performed: 07/07/24 Height: 5 ft 10 in Weight: 127.5 kg Body Mass Index (BMI): 40.3 Surgical Procedure: Operation Date: 07/07/24 08:25 Proposed Procedure Side Surgeon p Cystoscopy/Transurethral Resection Prostate Thomas Dodd MD Meds Allergies and Home Medications Allergies Allergy/AdvReac Type Severity Reaction Status Date / Time peanut Allergy Severe Anaphylaxis Verified 07/07/24 06:59 tree nut Allergy Severe Anaphylaxis Verified 07/07/24 06:59 acetaminophen (From Vicodin) Allergy vomiting Verified 07/07/24 06:59 egg Allergy Vomiting Verified 07/07/24 06:59 Fish Containing Products Allergy vomiting Verified 07/07/24 06:59 house dust mite Allergy unknown Verified 07/07/24 06:59 hydrochlorothiazide Allergy laryngeal Verified 07/07/24 06:59 spasm hydrocodone (From Vicodin) Allergy vomiting Verified 07/07/24 06:59 metoclopramide (From Reglan) Allergy Hives Verified 07/07/24 06:59 mold Allergy Unknown Verified 07/07/24 06:59 tadalafil Allergy muscle Verified 07/07/24 06:59 aches Home Medication ?Medication ?Instructions ?Recorded albuterol sulfate 90 mcg/actuation 2 puff inhalation Q4H PRN 04/28/22 aerosol inhaler (ProAir HFA) budesonide-formoterol HFA 80 2 puff inhalation BID 04/28/22 mcg-4.5 mcg/actuation aerosol inhaler (Symbicort) cyclobenzaprine 10 mg tablet 10 mg PO TID PRN 04/28/22 epinephrine 0.3 mg/0.3 mL 0.3 mg IM DIRECTED 04/28/22 injection, auto-injector (EpiPen) escitalopram oxalate 20 mg tablet 20 mg PO DAILY 04/28/22 (Lexapro) loratadine 10 mg tablet (Claritin) 10 mg PO DAILY 04/28/22 melatonin 3 mg capsule 3 mg PO HS PRN 04/28/22 mirtazapine 30 mg tablet 30 mg PO DAILY 04/28/22 omeprazole 40 mg capsule,delayed 40 mg PO DAILY 04/28/22 release risperidone 1 mg tablet 1 mg PO DAILY 04/28/22 ibuprofen 800 mg tablet 800 mg PO PRN PRN 06/27/22 metoprolol succinate 50 mg 50 mg PO DAILY 06/27/22 tablet,extended release 24 hr baclofen 10 mg tablet 10 mg PO TID PRN 10/24/22 diclofenac sodium 1 % topical gel 2 g topical QID PRN 10/24/22 (Arthritis Pain (diclofenac)) amitriptyline 100 mg tablet 100 mg PO DAILY 03/16/24 haloperidol 2 mg tablet 2 mg PO Q6H PRN 03/16/24 lisinopril 10 mg tablet 10 mg PO DAILY 03/16/24 lorazepam 1 mg tablet (Ativan) 1 mg PO DAILY PRN 03/16/24 metformin 500 mg tablet 500 mg PO BID 03/16/24 prochlorperazine maleate 10 mg 10 mg PO DAILY PRN 04/04/24 tablet Current Visit Medications: Current Medications Generic Name Dose Route Start Last Admin Trade Name Freq PRN Reason Stop Dose Admin Ringer's Solution 1,000 mls @ 80 mls/hr 07/07/24 06:00 07/07/24 07:24 IV 08/05/24 23:59 80 mls/hr INFUSION VICKY Administration Cefazolin Sodium 3,000 mg/ 100 mls @ 200 mls/hr 07/07/24 06:00 Sodium Chloride IV 08/05/24 23:59 PREOP VICKY IV Miscellaneous Supplies 1 each 07/07/24 06:00 Iv Access IV 08/05/24 23:59 DIRECTED VICKY Sodium Chloride 0 ml 07/07/24 06:00 Normal Saline Flush 10 Ml Syr IV 08/05/24 23:59 PRN PRN Sodium Chloride 0 ml 07/07/24 06:00 Normal Saline 10 Ml Vial IJ 08/05/24 23:59 DIRECTED PRN Sterile Water 0 ml 07/07/24 06:00 Water,Injection,Sterile 10 Ml Vial IJ 08/05/24 23:59 DIRECTED PRN PFSH Active Problems Active Problems: Problem Status Onset Code Lower urinary tract symptoms (LUTS) Acute R39.9 Meralgia paresthetica of both lower extremities Acute G57.13 Lumbosacral spondylosis without myelopathy Acute M47.817 Cyclical vomiting Acute R11.15 Tinnitus, bilateral Acute H93.13 Sensorineural hearing loss (SNHL) of both ears Acute H90.3 Sensation of fullness in right ear Acute H93.8X1 Medical History Medical History Incontinence Incomplete bladder emptying Otitis externa of right ear Jaw pain Suicidal thoughts Peanut-induced anaphylaxis Dysuria Nausea and vomiting Chest pain Per pt. states he had it worked up and nothing came of it Tremor Unilateral inguinal hernia Pyloric stenosis GERD (gastroesophageal reflux disease) Mild intermittent asthma Allergic rhinitis Hypertensive disorder CARLOS (obstructive sleep apnea) Insomnia Adult ADHD Severe recurrent major depression without psychotic features Obesity Temporomandibular joint disorder Surgical History Surgical History History of cholecystectomy History of hand surgery H/O endoscopy 06/10/2019 upper gastrointestinal endoscopy w/ dilation of gastric outlet for obstruction History of esophagogastroduodenoscopy (EGD) 05/12/2019 hiatal hernia H/O colonoscopy H/O hernia repair History of hydrocelectomy Tobacco Smoking/Tobacco Use Status: Never Alcohol Alcohol Intake: former Substance Use Substance use: Never Substance use type: does not use Vital Signs and Lab Results Vital Signs Most Recent Vital Signs in EMR: Most Recent Vital Signs Temp Pulse Resp BP Pulse Ox 36.6 C 78 16 133/81 99 07/07/24 07:20 07/07/24 07:20 07/07/24 07:20 07/07/24 07:20 07/07/24 07:20 Lab Results Blood Type / Crossmatch: No Data to Display Complete Blood Count: No Data to Display Complete Metabolic Panel: No Data to Display Liver Function Panel: No Data to Display Coagulation Panel: No Data to Display Cardiac Panel: No Data to Display Arterial Blood Gas: No Data to Display Venous Blood Gas: No Data to Display Pancreas Panel: No Data to Display Thyroid Panel: No Data to Display Infectious Disease: No Data to Display Blood Cultures: No Data to Display Toxicology Panel: No Data to Display Imaging and Studies Imaging and Studies Study information below may be from another EMR and interpreted by another provider. Please see original notes in EMR for more complete details. EKG Summary: 06/27/22 Conclusion Sinus rhythm...normal P axis, V-rate 60- 99 Anesthesia Assessment and Plan Anesthesia History Personal History: No History of Anesthesia Complications Family History: No Family History of Anesthesia Complications Exercise Tolerance Exercise Tolerance: Metabolic Equivalents>4 Pertinent Negatives Pertinent Negatives: No Symptoms of GERD (well controlled), No Major Cardiovascular Symptoms or Complaints and No Major Pulmonary Symptoms or Complaints Cardiac & Pulmonary Exam Cardiac Exam: Normal S1/S2 Heart Sounds Pulmonary Exam: Clear Bilateral Breath Sounds Implantable Cardiac Device Does patient have a Pacemaker or an ICD?: No Airway Exam Known Difficult Airway: No Mallampati Class: 2 Mouth Opening: Normal (> 3cm) Thyromental Distance: Greater than 3 cm Neck Range of Motion: Full ROM Neck Circumference: Normal Teeth Condition: Removable Dentures/Plates Upper, Removable Dentures/Plates Lower and Edentulous ASA Classification ASA Score: ASA 3 Emergency Case?: No NPO Status NPO Status: NPO Clears >2 hours, Solids >8 hours Anesthesia Plan Resuscitation Status: Full Code Anesthesia Technique: General Anesthesia Airway Planned: LMA Monitors Used: Standard Monitors Preoperative Comments:: Used inhaler this am
--- NOTE | 2024-07-07 08:14 | HPE_ITS ---
Date of service: 07/07/24 Time of Service: 08:15 Assessment and Plan Assessment and plan (1) Lower urinary tract symptoms (LUTS): Status: Acute Assessment and plan: For cystoscopy with transurethral resection of prostate History of Present Illness History of Present Illness Chief Complaint: Bladder outlet obstruction Narrative: Chief complaint: Lower urinary tract symptoms This is a 58-year-old gentleman who has a history of lower urinary tract symptoms including slowing of his urinary stream and postvoid dribbling. He has not gone into retention. He has not had any recent history of urinary tract infections. He has failed alpha blockers and he was unable to tolerate daily Cialis for his lower urinary tract symptoms. He is agreeable to transurethral resection of the prostate. He has no known bleeding disorders. He has not had issues with anesthesia in t he past. Review of Systems Narrative: No fevers or chills Decreased hearing acuity. No vision change or dysphasia S/P thymectomy No shortness of breath, cough or hemoptysis No chest pain or palpitations GERD. No hepatitis, ulcers, jaundice No seizures or strokes Yeast infection in groin. No bleeding disorders or anemia Chronic back pain. No gout PFSH All Active Problems (Updated 07/07/24 @ 08:37 by Thomas Dodd MD) Lower urinary tract symptoms (LUTS) (Acute) Meralgia paresthetica of both lower extremities (Acute) Lumbosacral spondylosis without myelopathy (Acute) Cyclical vomiting (Acute) Tinnitus, bilateral (Acute) Sensorineural hearing loss (SNHL) of both ears (Acute) Sensation of fullness in right ear (Acute) Medical History (Updated 07/07/24 @ 08:37 by Thomas Dodd MD) Thymus cancer Incontinence Incomplete bladder emptying Otitis externa of right ear Jaw pain Suicidal thoughts Peanut-induced anaphylaxis Dysuria Nausea and vomiting Chest pain Per pt. states he had it worked up and nothing came of it Tremor Unilateral inguinal hernia Pyloric stenosis GERD (gastroesophageal reflux disease) Mild intermittent asthma Allergic rhinitis Hypertensive disorder CARLOS (obstructive sleep apnea) Insomnia Adult ADHD Severe recurrent major depression without psychotic features Obesity Temporomandibular joint disorder Surgical History (Updated 07/07/24 @ 08:37 by Thomas Dodd MD) H/O thymectomy History of cholecystectomy History of hand surgery H/O endoscopy 06/10/2019 upper gastrointestinal endoscopy w/ dilation of gastric outlet for obstruction History of esophagogastroduodenoscopy (EGD) 05/12/2019 hiatal hernia H/O colonoscopy H/O hernia repair History of hydrocelectomy Family History Father Depressive disorder Arteriosclerotic cardiovascular disease (ASCVD) Social History Smoking/Tobacco Use Status: Never Smoking risk assessment performed?: Yes Alcohol Intake: former Drug use: Never Substance use type: does not use Housing: house Communication Needs: Corrective Lenses 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 Do you feel safe at home: Yes Do you feel safe in your relationship?: Yes Meds Allergies and Home Medications Allergies Allergy/AdvReac Type Severity Reaction Status Date / Time peanut Allergy Severe Anaphylaxis Verified 07/07/24 06:59 tree nut Allergy Severe Anaphylaxis Verified 07/07/24 06:59 acetaminophen (From Vicodin) Allergy vomiting Verified 07/07/24 06:59 egg Allergy Vomiting Verified 07/07/24 06:59 Fish Containing Products Allergy vomiting Verified 07/07/24 06:59 house dust mite Allergy unknown Verified 07/07/24 06:59 hydrochlorothiazide Allergy laryngeal Verified 07/07/24 06:59 spasm hydrocodone (From Vicodin) Allergy vomiting Verified 07/07/24 06:59 metoclopramide (From Reglan) Allergy Hives Verified 07/07/24 06:59 mold Allergy Unknown Verified 07/07/24 06:59 tadalafil Allergy muscle Verified 07/07/24 06:59 aches Home Medications ?Medication ?Instructions ?Recorded ?Confirmed ?Type albuterol sulfate 90 mcg/actuation 2 puff inhalation Q4H PRN 04/28/22 07/07/24 History aerosol inhaler (ProAir HFA) budesonide-formoterol HFA 80 2 puff inhalation BID 04/28/22 07/05/24 History mcg-4.5 mcg/actuation aerosol inhaler (Symbicort) cyclobenzaprine 10 mg tablet 10 mg PO TID PRN 04/28/22 07/05/24 History epinephrine 0.3 mg/0.3 mL 0.3 mg IM DIRECTED 04/28/22 07/05/24 History injection, auto-injector (EpiPen) escitalopram oxalate 20 mg tablet 20 mg PO DAILY 04/28/22 07/07/24 History (Lexapro) loratadine 10 mg tablet (Claritin) 10 mg PO DAILY 04/28/22 07/05/24 History melatonin 3 mg capsule 3 mg PO HS PRN 04/28/22 07/07/24 History mirtazapine 30 mg tablet 30 mg PO DAILY 04/28/22 07/07/24 History omeprazole 40 mg capsule,delayed 40 mg PO DAILY 04/28/22 07/07/24 History release risperidone 1 mg tablet 1 mg PO DAILY 04/28/22 07/07/24 History ibuprofen 800 mg tablet 800 mg PO PRN PRN 06/27/22 07/05/24 History metoprolol succinate 50 mg 50 mg PO DAILY 06/27/22 07/07/24 History tablet,extended release 24 hr baclofen 10 mg tablet 10 mg PO TID PRN 10/24/22 07/05/24 History diclofenac sodium 1 % topical gel 2 g topical QID PRN 10/24/22 07/05/24 History (Arthritis Pain (diclofenac)) amitriptyline 100 mg tablet 100 mg PO DAILY 03/16/24 07/07/24 History haloperidol 2 mg tablet 2 mg PO Q6H PRN 03/16/24 07/05/24 History lisinopril 10 mg tablet 10 mg PO DAILY 03/16/24 07/07/24 History lorazepam 1 mg tablet (Ativan) 1 mg PO DAILY PRN 03/16/24 07/05/24 History metformin 500 mg tablet 500 mg PO BID 03/16/24 07/07/24 History prochlorperazine maleate 10 mg 10 mg PO DAILY PRN 04/04/24 07/05/24 History tablet Exam Const General: cooperative Neck Neck: supple Resp Effort & Inspection: normal respiratory effort Auscultation: clear to auscultation bilaterally Cardio Rate: regular rate Rhythm: regular rhythm GI Palpation: soft and no masses Neuro General: patient alert, patient awake and patient oriented x3 Results Last Vital Signs Temp 36.6 C 07/07/24 07:20 Pulse 78 07/07/24 07:20 Resp 16 07/07/24 07:20 BP 133/81 07/07/24 07:20 Pulse Ox 99 07/07/24 07:20 Time Spent Time spent with Patient: <40 minutes Time was spent: other
[2024-07-07] MEDS: ceFAZolin 3,000 MG in Normal Saline 100 ML 200 MG IV (08:50)
[2024-07-07] MEDS: Lidocaine 2% Jelly 11 ML SYR (09:38)
--- NOTE | 2024-07-07 09:45 | PROST_PTH ---
PATIENT: Joe Garcia LOC: U#:[id number] AGE/SX: 58/M ROOM: [id number] RE07/07/[address]: Thomas Dodd MD : 1965 BED: A DIS: 07/08/2024 SPEC #: [id number] RECD: 07/07/24 13:02 STATUS: JONATHAN REQ #: [id number] ALVINA: 07/07/24 09:[address]: Thomas Dodd DEPT: Surgical Specimen RECD BY: Charisse Osorio ENTERED: 07/07/24 13:02 SP TYPE: PROST OTHR DR: CHARLES NOEL Tissues: 1 - PROSTATE CURRETTINGS Procedures: GROSS AND MICRO LEVEL 4 IMMUNOPEROXIDASE STAIN Comments: [id number]
--- NOTE | 2024-07-07 10:26 | W.PM.OP ---
Date of service: 07/07/24 Time of Service: 10:26 Operative Note Operative Note DATE OF PROCEDURE: 07/07/24 PRE-OP DIAGNOSIS: Bladder outlet obstruction POST-OP DIAGNOSIS: same PROCEDURE: cystoscopy with TURP SURGEON: Thomas Dodd ANESTHESIA TYPE: Local By Surgeon and General LMA/ETT Refer to Anesthesia Record ESTIMATED BLOOD LOSS: 350 PATHOLOGY: other (prostate chips) COMPLICATIONS: None Patient was transported to: PACU Patient's condition: stable Implants: 22 icelandic coude tipped irrigating catheter with 50 cc sterile water in balloon Indications: This is a 58-year-old gentleman who has a history of lower urinary tract symptoms including urinary hesitancy, postvoid dribbling and a sensation of incomplete emptying. His symptoms have progressed over time. He has not had any benefit from alpha blockers. He was unable to tolerate the daily dose of Cialis. He presents now for transurethral resection of the prostate Findings: trilobar enlargement of prostate Procedure Description: The patient is brought to the operating room on 07/07/2024. He was given preprocedural IV antibiotics. After successful induction of general anesthesia, he was placed in the dorsal lithotomy position. His genitalia is prepped and draped. 2% Xylocaine jelly was instilled into the urethra to act as a local anesthetic. A 22 [place] resectoscope sheath was passed through the urethra into the bladder. The urethra and bladder were inspected using a 30 degree lens and the visual obturator. The pendulous, bulbar and membranous urethra appeared normal with no strictures. The prostatic urethra showed lateral lobe enlargement and a moderate-sized median lobe as well. The bladder neck was entered and the bladder mucosa was inspected. Both ureteral orifices appeared normal with no blood coming from either side. The bladder was moderately trabeculated with no papillary or nodular tumor seen. We then utilized an [place] [employer] [place] resectoscope and bipolar cautery to perform transurethral resection of the prostate from the bladder neck out to the verumontanum. We began by resecting the median lobe and then worked our way onto the lateral lobes. At the completion of the procedure, no arterial bleeding was seen. All resected tissue was evacuated and sent to pathology for permanent section. The bladder was then filled with irrigant and the resectoscope was removed. A 22 [place]ian hematuria catheter was passed through the urethra into the bladder. The catheter balloon was inflated with 50 cc of sterile water. Continuous bladder irrigation with saline was begun. Traction was placed on the catheter until the irrigant became clear. The patient tolerated the procedure well and was taken to the recovery room in stable condition.
--- NOTE | 2024-07-07 11:05 | W.ANESPOSTOP ---
Postoperative Evaluation Date, Time and Location Date Performed: 07/07/24 Time Performed: 11:05 Patient Location: PACU Vital Signs Most Recent Imported Vital Signs: Most Recent Vital Signs Temp Pulse Resp BP Pulse Ox 36.3 C L 67 20 115/66 100 07/07/24 10:36 07/07/24 10:58 07/07/24 10:58 07/07/24 10:58 07/07/24 10:58 Pain Score Most Recent Pain Score: Most Recent Pain Score Pain Level 0 07/07/24 10:36 Assessment Mental Status: Awake (Alert & Oriented to Patient Baseline) Airway and Respiratory Function: Patent airway with normal (patient baseline) respiratory exam Cardiovascular Function: Hemodynamically Stable Hydration Status: Adequately Hydrated Nausea & Vomiting: No Nausea or Vomiting Pain: Pt. Denies Any Pain Peripheral Nerve Block: Patient did not receive a nerve block
--- OUTSIDE RECORDS SUMMARY | 2024-07-07 11:39 | XMS_ITS | Continuity of Care Document ---
Author Organization [facility] Address [address] [place] [address] Care Team Providers Care Administrative Manager Name Role Phone Kenia Devine Primary Care Physician Encounter [facility] Date(s): 02/16/23 - 02/16/[address] [address] Encounter Diagnosis Pain in left knee(Discharge Diagnosis) - 02/16/23 Discharge Disposition: Home or Self Care Attending Physician: Fransisco Cuellar Admitting Physician: Fransisco Cuellar Referring Physician: Fransisco Cuellar Allergies, Adverse Reactions, Alerts Substance Reaction Severity Status HOUSE DUST MITE Unknown Active MOLD Unknown Active EGG Vomiting Unknown Active FISH CONTAINING PRODUCTS Vomiting Unknown Act alicia TREE NUT Anaphylactic reaction Unknown Active PEANUT 1 Anaphylaxis Severe Active metoclopramide Urticaria Unknown Active acetaminophen-hydrocodone Vomiting Unknown Ac tive hydroCHLOROthiazide 2 Unknown Active 1fatal(deprecated) 2laryngeal spasm Assessment and Plan Future Appointments Future Scheduled Tests Radiology* MRI MRCP w/o Contrast 09/16/22 Immunizations Given and Recorded Vaccine Date Status Refusal Reason tetanus/diphth/pertuss (Tdap) adult/adol 01/07/22 Recorded tetanus/diphth/pertuss (Tdap) adult/adol 05/05/12 Recorded SARS-CoV-2 (COVID-19) mRNA-1273 vaccine 12/30/21 R ecorded SARS-CoV-2 (COVID-19) mRNA-1273 vaccine 03/05/21 R ecorded SARS-CoV-2 (COVID-19) mRNA-1273 vaccine 02/05/21 R ecorded influenza virus vaccine, live 09/17/21 Recorded influenza virus vaccine, live 1 08/21/20 Recorded influenza virus vaccine, live 09/06/19 Recorded influenza virus vaccine, live 09/21/18 Recorded influenza virus vaccine, live 10/02/17 Recorded influenza virus vaccine, live 10/17/16 Recorded influenza virus vaccine, inactivated 09/05/15 Yamil rded influenza virus vaccine, inactivated 08/25/14 Yamil rded influenza virus vaccine, inactivated 11/30/12 Yamil rded influenza virus vaccine, inactivated 11/16/00 Yamil rded tetanus-diphth toxoids (Td) adult/adol 05/16/01 Re corded 1Result Comment: pt tolerated well Medications !-Phenergan 25 mg rectal suppository 25 mg = 1 supp, AR, every 4 hr, PRN as needed for nausea/vomiting, # 30 supp, 0 Refill(s), Pharmacy: [facility] #[facility], 178, cm, 09/04/22 7:09:00 EDT, Height/Length Dosing, 119, kg, 09/04/22 7:09:00 EDT, Weight Dosing Start Date: 09/16/22 Status: Ordered Albuterol (Eqv-ProAir HFA) 90 mcg/inh inhalation aerosol 180 mcg 2 puffs, Inhale, every 4 hr, PRN not specified, # 18 g, 0 Refill(s), Pharmacy: [facility], 178, cm, 12/13/22 13:06:00 EST, Height/Length Dosing, 126, kg, 12/13/22 13:06:00 EST, Weight Dosing Start Date: 12/16/22 Status: Ordered amitriptyline 25 mg oral tablet 1 tab, Oral, every night at bedtime, # 90 tab, 1 Refill(s), Pharmacy: [facility]58, 178, cm, 12/13/22 13:06:00 EST, Height/Length Dosing, 126, kg, 12/13/22 13:06:00 EST, Weight Dosing Start Date: 01/12/23 Status: Ordered amitriptyline 50 mg oral tablet 30 EA, TAKE ONE TABLET BY MOUTH AT BEDTIME, 0 Refill(s) Start Date: 01/21/23 Status: Ordered Ativan 1 mg oral tablet 1 mg = 1 tab, Oral, Daily, PRN nausea/vomiting, Use as needed during cyclical vomiting episodes, 1 mg tab every 4 hrs PRN until resolved, # 30 tab, 0 Refill(s), Pharmacy: [facility], 178, cm, 12/13/22 13:06:00 EST, Height/Length Dosing, 126,... Start Date: 01/27/23 Status: Ordered capsaicin 0.025% topical cream 1 barrera, Topical, TID, PRN other (see comment), APPLY TO THE AFFECTED AREA(S) NEEDED Start Date: 07/19/22 Status: Ordered EpiPen 2-Flip 0.3 mg injectable kit 0.3 mg =, IM, Once, # 1 EA, 0 Refill(s), Pharmacy: [facility] #58, 177.8, cm, 06/01/22 17:05:00 EDT, Height/Length Dosing, 117.93, kg, 06/01/22 17:05:00 EDT, Weight Dosing Start Date: 06/04/22 Status: Ordered escitalopram 20 mg oral tablet 20 mg = 1 tab, Oral, every morning, # 30 tab, 0 Refill(s), Pharmacy: [facility] #[facility], 178, cm,12/13/22 13:06:00 EST, Height/Length Dosing, 126, kg, 12/13/22 13:06:00 EST, Weight Dosing Start Date: 02/12/23 Stop Date: 03/14/23 Status: Ordered gabapentin 100 mg oral capsule 180 EA, TAKE TWO CAPSULES BY MOUTH THREE TIMES A DAY, 0 Refill(s) Start Date: 01/21/23 Status: Ordered gabapentin 300 mg oral capsule 600 mg = 2 cap, Oral, BID, 600mg BID, # 60 cap, 0 Refill(s), Pharmacy: [facility] #[facility], 178, cm, 12/13/22 13:06:00 EST, Height/Length Dosing, 126, kg, 12/13/22 13:06:00 EST, Weight Dosing Start Date: 02/04/23 Status: Ordered theodora oral capsule See Instructions, take 1 tablet on tongue at onset of nausea. Repeat every 6 hours as needed, # 20 tab, 0 Refill(s), Pharmacy: [facility] #[facility], 178, cm, 08/13/22 8:42:00 EDT, Height/Length Dosing, 117.9, kg, 08/13/22 8:42:00 EDT, Weight Dosing Start Date: 08/13/22 Status: Ordered haloperidol 1 mg oral tablet See Instructions, 1 tab Oral at onset of cyclical vomiting syndrome, # 30 tab, 0 Refill(s), Pharmacy: [facility] #58, 178, cm, 12/13/22 13:06:00 EST, Height/Length Dosing, 126, kg, 12/13/22 13:06:00 EST, Weight Dosing Start Date: 01/27/23 Status: Ordered ibuprofen 800 mg oral tablet 800 mg = 1 tab, Oral, every 8 hr, PRN other (see comment), as needed Start Date: 05/01/22 Status: Ordered lactobacillus acidophilus-lactobacillus rhamnosus oral capsule 1 cap, Oral, Daily, contents of capsule can be sprinkled into cold food or beverages, # 30 cap, 2 Refill(s), Pharmacy: [facility] #[facility], 178, cm, 10/30/22 13:49:00 EST, Height/Length Dosing, 126,kg, 10/30/22 13:49:00 EST, Weight Dosing Start Date: 11/21/22 Stop Date: 02/19/23 Status: Ordered lisinopril 10 mg oral tablet 10 mg = 1 tab, Oral, Daily, # 90 tab, 0 Refill(s), Pharmacy: [facility] #58, 178, cm, 12/13/22 13:06:00 EST, Height/Length Dosing, 126, kg, 12/13/22 13:06:00 EST, Weight Dosing Start Date: 12/16/22 Status: Ordered melatonin 3 mg oral tablet 9 mg = 3 tab, Oral, every day at bedtime Start Date: 07/19/22 Status: Ordered metoprolol succinate 50 mg oral capsule, extended release 50 mg = 1 cap, Oral, Daily, # 90 cap, 3 Refill(s), Pharmacy: [facility] #[facility], 178, cm, 08/13/22 8:42:00 EDT, Height/Length Dosing, 117.9, kg, 08/13/22 8:42:00 EDT, Weight Dosing Start Date: 09/03/22 Status: Ordered mirtazapine 30 mg oral tablet 30 mg = 1 tab, Oral, every night at bedtime, # 30 tab, 2 Refill(s), Pharmacy: [facility] #58,178, cm, 10/30/22 13:49:00 EST, Height/Length Dosing, 126, kg, 10/30/22 13:49:00 EST, Weight Dosing Start Date: 11/21/22 Stop Date: 02/19/23 Status: Ordered omeprazole 40 mg oral delayed release capsule 40 mg = 1 cap, Oral, Daily Start Date: 05/01/22 Status: Ordered penicillin V potassium 500 mg oral tablet 500 mg = 1 tab, Oral, TID, # 60 tab, 0 Refill(s) Start Date: 01/26/23 Status: Ordered risperiDONE 1 mg oral tablet 1 mg = 1 tab, Oral, every night at bedtime, # 30 tab, 2 Refill(s), Pharmacy: [facility] #[facility], 178, cm, 10/30/22 13:49:00 EST, Height/Length Dosing, 126, kg, 10/30/22 13:49:00 EST, Weight Dosing Start Date: 11/21/22 Stop Date: 02/19/23 Status: Ordered Symbicort 80 mcg-4.5 mcg/inh inhalation aerosol 2 puffs, Inhale, BID, # 10.2 g, 5 Refill(s), Pharmacy: [facility] #[facility], 177.8, cm, 09/22/22 6:14:00 EST, Height/Length Dosing, 123.83, kg, 09/22/22 6:14:00 EST, Weight Dosing Start Date: 10/10/22 Status: Ordered Problem List Condition Confirmation Course Effective Dates Status H ealth Status Informant Adult attention deficit hyperactivity disorder Confirmed 06/28/21 Active Allergic rhinitis Confirmed Active Back pain Confirmed Active Cholelithiasis Confirmed Active Carpal tunnel syndrome of right wrist Confirmed 01/27/22 Active Cerebral arachnoid cyst Confirmed 02/12/21 Active Chest pain Confirmed Active Cyclical vomiting Confirmed Active Dysuria Confirmed 06/23/18 Active Gastroesophageal reflux disease Confirmed Active S/P laparoscopic cholecystectomy Confirmed Active Hypertensive disorder Confirmed Active Unilateral inguinal hernia Confirmed 2003 Active Insomnia Confirmed Active Mild intermittent asthma Confirmed Active Nausea and vomiting Confirmed Active Nausea & vomiting Confirmed Active Obesity Confirmed Active Obstructive sleep apnea syndrome Confirmed Active Peanut-induced anaphylaxis Confirmed Active Pyloric stenosis Confirmed 09/20/19 Active Depression, major, recurrent, mild Confirmed Active Severe recurrent major depression without psychotic features Confirmed 02/03/22 Active Suicidal thoughts Confirmed Active Tremor Confirmed Active Procedures Procedure Date Related Diagnosis Body Site Status Laparoscopic cholecystectomy 1 10/29/22 Completed Colonoscopy 2 08/30/20 Completed Upper gastrointestinal endos copy, w/ dilation of gastric outlet for obstruction 06/09/19 Completed EGD 3 05/11/19 Completed Hydrocelectomy Completed Repair of right inguinal hernia Completed 1Laparoscopic Cholecystectomy Laparoscopic lysis of adhesions Intraoperative biliary perfusion/cholangiography with ICG 25mm polyp removed. 01/25/2020 polyp of colon, gastric polyposis; 02/02/2015 solitary small rectal polyp 3hiatal hernia; 05/12/2019 W balloon dilation pyloris, Pyloric stenosis, gastric polyposis; 07/15/2018 hiatal hernia, pyloric stenosis, gastric polyposis Results Laboratory List Name Date Automated Diff 02/16/23 C-Reactive Protein High Sensitivity (CRP HS) 02/16/23 CBC w/ Diff 02/16/23 Sedimentation Rate (ESR) 02/16/23 Most recent to oldest [Reference Range]: 1 WBC [5.0-10.0 x10^3/mcL] 8.0 x10^3/mcL (02/16/23 3:27 PM) RBC [4.6-6.0 x10^6/mcL] 4.9 x10^6/mcL (02/16/23 3:27 PM) Neutro Auto [40.0-75.0 %] 65.0 % (02/16/23 3:27 PM) Lymph Auto [20.0-50.0 %] 23.1 % (02/16/23 3:27 PM) [place] Auto [2.0-15.0 %] 8.5 % (02/16/23 3:27 PM) Basophil Auto [0.0-1.0 %] 0.5 % (02/16/23 3:27 PM) MCV [80.0-96.0] 85.0 (02/16/23 3:27 PM) MCHC [31.0-35.0 g/dL] 32.4 g/dL (02/16/23 3:27 PM) Hct [41.0-51.0 %] 41.4 % (02/16/23 3:27 PM) MCH [26.0-32.0 pg] 27.5 pg (02/16/23 3:27 PM) Neutro Absolute 5.2 x10^3/mcL *NA* (02/16/23 3:27 PM) Hgb [14.0-18.0 g/dL] 13.4 g/dL *LOW* (02/16/23 3:27 PM) Platelets [130-450 x10^3/mcL] 207 x10^3/ mcL (02/16/23 3:27 PM) RDW-CV [11.5-17.0 %] 13.4 % (02/16/23 3:27 PM) Imm Gran Auto [0.0-0.9 %] 0.9 % (02/16/23 3:27 PM) CRP High Sens [0.00-3.00 mg/L] 18.45 mg/ L *HI* (02/16/23 3:27 PM) Eos, Auto [1.0-6.0 %] 2.0 % (02/16/23 3:27 PM) ESR, [place] [0-20 mm/hr] 18 mm/hr (02/16/23 3:27 PM) Social History Social History Type Response Smoking Status Never; Smoking tobac co use: Never tobacco user entered on: 06/16/22 Sex Male Patient Care team information Care Team Personnel Name: Kenia Devine MD Position: Physician Member Role: Informed Provider Address: Address: [address] Name: Veronique Rowan FUR SCRAPER Position: Physician Member Role: Nurse Practitioner Address: Address: [address] [facility] [place] [address] Name: Irma Monteiro FUR S[employer]ER Position: Physician Member Role: Nurse Practitioner Address: Address: [address] [facility] [address] Care Team Related Persons Name: SALO BARBOSA Address: Home Name: JANET BARBOSA Address: Home
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
--- OUTSIDE RECORDS SUMMARY | 2024-07-07 11:39 | XMS_ITS | Continuity of Care Document ---
Author Organization [facility] Address [address] [place] [address] Care Team Providers Care Custom Designer Name Role Phone Kenia Devine Primary Care Physician [phone] Encounter [facility] Date(s): 01/27/23 - 01/27/23 [facility] [address] [place] [address] Encounter Diagnosis Chest pain(Discharge Diagnosis) - 01/27/23 Discharge Disposition: Home or Self Care Attending Physician: Kenia Devine MD Admitting Physician: Kenia Devine MD Referring Physician: Kenia Devine MD Allergies, Adverse Reactions, Alerts Substance Reaction [...] rectal suppository 25 mg = 1 supp, RI, every 4 hr, PRN as needed for nausea/vomiting, # 30 supp, 0 Refill(s), Pharmacy: [id number], 178, cm, 09/04/22 7:09:00 EDT, Height/Length Dosing, 119, kg, 09/04/22 7:09:00 EDT, Weight Dosing Start Date: 09/16/22 Status: Ordered Albuterol (Eqv-ProAir HFA) 90 mcg/inh inhalation aerosol 180 mcg 2 puffs, Inhale, every 4 hr, PRN not specified, # 18 g, 0 Refill(s), Pharmacy: [facility], 178, cm, 12/13/22 13:06:00 EST, Height/Length Dosing, 126, kg, 12/13/22 13:06:00 EST, Weight Dosing Start Date: 12/16/22 Status: Ordered amitriptyline 25 mg oral tablet 1 tab, Oral, every night at bedtime, # 90 tab, 1 Refill(s), Pharmacy: [facility], 178, cm, 12/13/22 13:06:00 EST, Height/Length [...] resolved, # 30 tab, 0 Refill(s), Pharmacy: [facility], 178, cm, 12/13/22 13:06:00 EST, Height/Length Dosing, 126,... Start Date: 01/27/23 Status: Ordered capsaicin 0.025% topical cream 1 barrera, Topical, TID, PRN other (see comment), APPLY TO THE AFFECTED AREA(S) NEEDED Start Date: 07/19/22 Status: Ordered EpiPen 2-Flip 0.3 mg injectable kit 0.3 mg =, IM, Once, # 1 EA, 0 Refill(s), Pharmacy: [facility], 177.8, cm, 06/01/22 17:05:00 EDT, Height/Length Dosing, 117.93, kg, 06/01/22 17:05:00 EDT, Weight Dosing Start Date: 06/04/22 Status: Ordered escitalopram 20 mg oral tablet 20 mg = 1 tab, Oral, every morning, # 30 tab, 2 Refill(s), Pharmacy: [facility], 178, cm,10/30/22 13:49:00 EST, Height/Length Dosing, 126, kg, 10/30/22 13:49:00 EST, Weight Dosing Start Date: 11/21/22 Stop Date: 02/19/23 Status: Ordered gabapentin 100 mg oral capsule 180 EA, TAKE TWO CAPSULES BY MOUTH THREE TIMES A DAY, 0 Refill(s) Start Date: 01/21/23 Status: Ordered gabapentin 300 mg oral capsule 300 mg = 1 cap, Oral, BID, # 60 cap, 0 Refill(s), Pharmacy: [facility], 178, cm, 12/13/2312:06:00 EST, Height/Length Dosing, 126, kg, 12/13/22 13:06:00 EST, Weight Dosing Start Date: 12/16/22 Status: Ordered theodora oral capsule See Instructions, take 1 tablet on tongue at onset of nausea. Repeat every 6 hours as needed, # 20 tab, 0 Refill(s), Pharmacy: [facility], 178, cm, 08/13/22 8:42:00 EDT, Height/Length Dosing, 117.9, kg, 08/13/22 8:42:00 EDT, Weight Dosing Start Date: 08/13/22 Status: Ordered haloperidol 1 mg oral tablet See Instructions, 1 tab Oral at onset of cyclical vomiting syndrome, # 30 tab, 0 Refill(s), Pharmacy: [facility], 178, cm, 12/13/22 13:06:00 EST, Height/Length [...] beverages, # 30 cap, 2 Refill(s), Pharmacy: [facility], 178, cm, 10/30/22 13:49:00 EST, Height/Length Dosing, 126,kg, 10/30/22 13:49:00 EST, Weight Dosing Start Date: 11/21/22 Stop Date: 02/19/23 Status: Ordered lisinopril 10 mg oral tablet 10 mg = 1 tab, Oral, Daily, # 90 tab, 0 Refill(s), Pharmacy: [facility], 178, cm, 12/13/22 13:06:00 EST, Height/Length Dosing, 126, kg, 12/13/22 13:06:00 EST, Weight Dosing Start Date: 12/16/22 Status: Ordered melatonin 3 mg oral tablet 9 mg = 3 tab, Oral, every day at bedtime Start Date: 07/19/22 Status: Ordered metoprolol succinate 50 mg oral capsule, extended release 50 mg = 1 cap, Oral, Daily, # 90 cap, 3 Refill(s), Pharmacy: [facility], 178, cm, 08/13/22 8:42:00 EDT, Height/Length Dosing, 117.9, kg, 08/13/22 8:42:00 EDT, Weight Dosing Start Date: 09/03/22 Status: Ordered mirtazapine 30 mg oral tablet 30 mg = 1 tab, Oral, every night at bedtime, # 30 tab, 2 Refill(s), Pharmacy: [facility],178, cm, 10/30/22 13:49:00 EST, Height/Length Dosing, [...] bedtime, # 30 tab, 2 Refill(s), Pharmacy: [facility], 178, cm, 10/30/22 13:49:00 EST, Height/Length Dosing, 126, kg, 10/30/22 13:49:00 EST, Weight Dosing Start Date: 11/21/22 Stop Date: 02/19/23 Status: Ordered Symbicort 80 mcg-4.5 mcg/inh inhalation aerosol 2 puffs, Inhale, BID, # 10.2 g, 5 Refill(s), Pharmacy: [facility], 177.8, cm, 09/22/22 6:14:00 EST, Height/Length [...] tobacco user entered on: 06/16/22 Sex Male Exercise stress test study * Behzad Colón: PERFORM Scar Dimas MD: MODIFY Event Display: Stress ECG Authored Date: [id number] EUGENIA KNOWLES :1965 Age:57 years Sex:Male Visit Date:01/27/2023 Primary Care Physician: Kenia Devine MD Ordering Provider : ??_??Dr. Devine ? ETT?Hieu Protocol Indication:??Chest Pain [id number]:?? 85% MPHR:??137 ?Stage ??Speed ??Incline ??Heart rate ??Blood Pressure ??Comments ??1 ??2.7 km/hr ??10% ?133 ??160/90 ?o2 sat =95% ??2 ??4.02 km/hr ??12% ?155 ??160/90/ ?O2 Sat = 98% ??3 ??5.47 km/hr ??14% ?/ ?4 ??6.76 km/hr ??16% ?/ ?5 ??8.05 km/hr ??18% ?/ ?6 ??8.85 km/hr ??20% ?/ ?7 ??9.65 km/hr ??22% ?/ ?8 ??10.46 km/hr ??24% ?/ ?Recovery ?/ ?2:00 ?/ ?4:00 ?/ ? Total Time:??6.08 Max Heart Rate:??157 % of MPHR achieved:??96 Functional Capacity: ??Fair?? Peak BP:??160/90 Chest Pain: ??None? Reason Test Terminated:??Target HR achieved, did not want to walk anymore ST Changes: ??_1??mm Direction, leads:?? Arrhythmias:??NSR Heart rate and BP Response:??appropriate Cruz Treadmill Score: ?+1 ?MODERATE RISK, with predicted 5-year survival >90%.? Summary Impression:??Normal stress test, no evidence of ischemia. ? Electronically Signed on 01/27/23 11:49 AM Behzad Colón Electronically Signed on 01/27/23 12:44 PM Scar Dimas MD Reviewed by: Behzad Colón Steven D MD Patient Care team information Care Team Personnel Name: Kenia Devine MD Position: Physician Member Role: Informed Provider Address: Address: [facility] [address] Name: Veronique Rowan WILD LIFE MANAGER Position: Physician Member Role: Nurse Practitioner Address: Address: [address] Name: Irma Monteiro WILD LIFE MANAGER Position: Physician Member Role: Nurse Practitioner Address: Address: [address] [facility] [address] Care Team Related Persons Name: SALO BARBOSA Address: Home Name: JANET BARBOSA Address: Home
--- OUTSIDE RECORDS SUMMARY | 2024-07-07 11:39 | XMS_ITS | Continuity of Care Document ---
Author Organization [facility] Address [address] [place] [address] Care Team Providers Care Plastic Molder Name Role Phone Kenia Devine Primary Care Physician [phone] Encounter [facility] Date(s): 06/15/24 - 06/15/24 [facility] [address] [place] [address] Discharge Disposition: Home or Self Care Attending [...] Plan Future Appointments Future Scheduled Tests Laboratory* Hemoglobin A1c 10/27/23 * Urinalysis Notify Lab 03/23/24 Immunizations Given and Recorded Vaccine Date Status Refusal Reason measles/mumps/rubella virus vaccine 02/11/24 Given tetanus/diphth/pertuss (Tdap) adult/adol 01/07/22 Recorded tetanus/diphth/pertuss (Tdap) [...] NEEDED, # 8.5 g, 7 Refill(s), Pharmacy: [facility] #58, 178, cm, 05/03/23 10:32:00 EDT, Height/Length Dosing, 125.7, kg, 05/03/23 10:32:00 EDT, Weight Dosing Start Date: 07/10/23 Status: Ordered alfuzosin 10 mg oral tablet, extended release 10 mg = 1 tab, Oral, Daily, # 90 tab, 3 Refill(s), Pharmacy: [facility] #58, 178.5, cm, 10/07/23 14:51:00 EST, Height, 116.95, kg, 11/04/23 14:29:00 EST, Weight Dosing Start Date: 11/25/23 Stop Date: 11/19/24 Status: Ordered amitriptyline 100 mg oral tablet 100 mg = 1 tab, Oral, every day at bedtime, # 90 tab, 2 Refill(s), Pharmacy: [facility] #58, 178.5, cm, 10/07/23 14:51:00 EST, Height, 117.9, kg, 10/07/23 14:59:00 EST, Weight Dosing Start Date: 10/07/23 Status: Ordered Ativan 1 mg oral tablet 1 mg = 1 tab, Oral, Daily, PRN nausea/vomiting, Use as needed during cyclical vomiting episodes, 1 mg tab every 4 hrs PRN until resolved, # 30 tab, 0 Refill(s), Pharmacy: [facility] #58, 178, cm, 05/03/23 10:32:00 EDT, Height/Length Dosing, 125.7, kg, 05/03/23 10:32:00 EDT, Weight Dosing Start Date: 07/21/23 Status: Ordered capsaicin 0.025% topical cream 1 barrera, Topical, TID, PRN other (see comment), APPLY TO THE AFFECTED AREA(S) NEEDED Start Date: 07/19/22 Status: Ordered cyclobenzaprine 10 mg oral tablet 10 mg = 1 tab, Oral, Daily, # 30 tab, 3 Refill(s), Pharmacy: [facility] #58, 178, cm, 12/30/23 15:35:00 EST, Height, 120, kg, 03/23/24 10:29:00 EDT, Weight Dosing Start Date: 03/23/24 Status: Ordered EPINEPHrine 0.3 mg injectable kit See Instructions, INJECT INTRAMUSCULARLY ONCE, # 2 mL, 0 Refill(s), Pharmacy: [facility] #58,178, cm, 12/30/23 15:35:00 EST, Height, 155.62, kg, 12/30/23 15:38:00 EST, Weight Dosing Start Date: 01/13/24 Status: Ordered escitalopram 20 mg oral tablet 20 mg = 1 tab, Oral, every morning, # 30 tab, 3 Refill(s), Pharmacy: [facility] #58, 178, cm,12/30/23 15:35:00 EST, Height, 121, kg, 03/30/24 8:26:00 EDT, Weight Dosing Start Date: 03/30/24 Stop Date: 07/28/24 Status: Ordered haloperidol 2 mg oral tablet 2 mg = 1 tab, Oral, every 6 hr, PRN nausea/vomiting, # 60 tab, 5 Refill(s), Pharmacy: [facility] #58, 178, cm, 05/04/24 8:35:00 EDT, Height, 120.66, kg, 05/17/24 11:11:00 EDT, Weight Dosing Start Date: 05/20/24 Status: Ordered ibuprofen 800 mg oral tablet 800 mg = 1 tab, Oral, every 8 hr, PRN other (see comment), as needed Start Date: 05/01/22 Status: Ordered lisinopril 10 mg oral tablet 1 tab, Oral, Daily, # 90 tab, 3 Refill(s), Pharmacy: [facility] #58, 178, cm, 05/04/24 8:35:00 EDT, Height, 120.66, kg, 05/17/24 11:11:00 EDT, Weight Dosing Start Date: 06/13/24 Status: Ordered melatonin 3 mg oral tablet 9 mg = 3 tab, Oral, every day at bedtime Start Date: 07/19/22 Status: Ordered metFORMIN 500 mg oral tablet 1 tab, Oral, BID w/Meals, # 90 tab, 1 Refill(s), Pharmacy: [facility] #58, 178, cm, 05/04/24 8:35:00 EDT, Height, 120.66, kg, 05/17/24 11:11:00 EDT, Weight Dosing Start Date: 06/13/24 Status: Ordered Metoprolol Succinate ER 50 mg oral tablet, extended release 1 tab, Oral, Daily, # 90 tab, 3 Refill(s), Pharmacy: [facility] #58, 177, cm, 08/01/23 8:37:00 EDT, Height/Length Dosing, 129, kg, 08/01/23 8:37:00 EDT, Weight Dosing Start Date: 08/23/23 Status: Ordered mirtazapine 30 mg oral tablet 30 mg = 1 tab, Oral, every night at bedtime, # 30 tab, 3 Refill(s), Pharmacy: [facility] #58,178, cm, 12/30/23 15:35:00 EST, Height, 121, kg, 03/30/24 8:26:00 EDT, Weight Dosing Start Date: 03/30/24 Stop Date: 07/28/24 Status: Ordered omeprazole 40 mg oral delayed release capsule 1 cap, Oral, Daily, # 90 cap, 3 Refill(s), Pharmacy: [facility] #58, 178, cm, 12/30/23 15:35:00 EST, Height, 116.75, kg, 02/03/24 12:42:00 EDT, Weight Dosing Start Date: 02/16/24 Status: Ordered prochlorperazine 10 mg oral tablet 10 mg = 1 tab, Oral, QID, PRN nausea, # 20 tab, 0 Refill(s), Pharmacy: [facility] #58, 178, cm, 05/04/24 8:35:00 EDT, Height, 120.66, kg, 05/17/24 11:11:00 EDT, Weight Dosing Start Date: 05/31/24 Status: Ordered risperiDONE 1 mg oral tablet 1.5 mg = 1.5 tab, Oral, every night at bedtime, # 45 tab, 3 Refill(s), Pharmacy: [facility] #58, 178, cm, 12/30/23 15:35:00 EST, Height, 121, kg, 03/30/24 8:26:00 EDT, Weight Dosing Start Date: 03/30/24 Stop Date: 07/28/24 Status: Ordered Symbicort 80 mcg-4.5 mcg/inh inhalation aerosol 2 puffs, Inhale, BID, # 10.2 g, 5 Refill(s), Pharmacy: [facility] #58, 177.8, cm, 09/22/22 6:14:00 EST, [...] Confirmed Active S/P laparoscopic cholecystectomy Confirmed Active Hyperlipidemia Confirmed Active Hypertensive disorder Confirmed Active Nocturnal hypoxemia Confirmed Active Unilateral inguinal hernia Confirmed 2003 Active Insomnia Confirmed Active Mediastinal mass Confirmed Active Mild intermittent asthma Confirmed Active [...] Results Laboratory List Name Date Automated Diff 06/15/24 CBC w/ Diff 06/15/24 Comprehensive Metabolic Panel (CMP) 06/15 Hemoglobin A1c 06/15/24 Iron Level and TIBC 06/15/24 Lipid Panel 06/15/24 Vitamin D, 25-OH Total [facility] (25-Hydroxyvi tamin D2 and D3 [facility]) 06/15/24 Most recent to oldest [Reference Range]: 1 WBC [5.0-10.0 x10^3/mcL] 5.3 x10^3/mcL (06/15/24 7:03 AM) RBC [4.6-6.0 x10^6/mcL] 4.4 x10^6/mcL *LOW* (06/15/24 7:03 AM) Neutro Auto [40.0-75.0 %] 61.7 % (06/15/24 7:03 AM) Lymph Auto [20.0-50.0 %] 25.1 % (06/15/24 7:03 AM) Mcpherson Auto [2.0-15.0 %] 8.9 % (06/15/24 7:03 AM) Basophil Auto [0.0-1.0 %] 0.6 % (06/15/24 7:03 AM) BUN [7-18 mg/dL] 21 mg/dL *HI* (06/15/24 7:03 AM) Cholesterol Total [50-200 mg/dL] 150 mg/ dL (06/15/24 7:03 AM) LDL [0-130 mg/dL] 78 mg/dL (06/15/24 7:03 AM) Glucose Level [74-106 mg/dL] 103 mg/dL (06/15/24 7:03 AM) Potassium Level [3.5-5.1 mmol/L] 4.1 mmo l/L (06/15/24 7: AM) MCV [80.0-96.0 fL] 83.6 fL (06/15/24 7:03 AM) HDL [40-60 mg/dL] 43 mg/dL (06/15/24 7: AM) AST [15-37 unit/L] 28 unit/L (06/15/24 7: AM) ALT [16-63 unit/L] 45 unit/L (06/15/24 7: AM) MCHC [31.0-35.0 g/dL] 33.1 g/dL (06/15/24 7: AM) Sodium Level [136-145 mmol/L] 139 mmol/L (06/15/24 7: AM) Hct [41.0-51.0 %] 37.2 % *LOW* (06/15/24 AM) Triglycerides [0-150 mg/dL] 143 mg/dL (06/15/24 7:03 AM) Calcium Level [8.5-10.1 mg/dL] 8.4 mg/dL *LOW* (06/15/24: AM) Albumin Level [3.4-5.0 g/dL] 3.5 g/dL (06/15/24 7: AM) Protein Total [6.4-8.2 g/dL] 7.1 g/dL (06/15/24 7: AM) Iron Sat [20-55 %] 22 % (06/15/24 7: AM) MCH [26.0-32.0 pg] 27.6 pg (06/15/24 7:03 AM) Neutro Absolute 3.2 x10^3/mcL *NA* (06/15/24 7: AM) Bilirubin Total [0.2-1.0 mg/dL] 0.9 mg/d L (06/15/24 7:03 AM) Hgb [14.0-18.0 g/dL] 12.3 g/dL *LOW* (06/15/24 7:03 AM) Alk Phos [46-146 unit/L] 133 unit/L (06/15/24 7:03 AM) Platelets [130-450 x10^3/mcL] 160 x10^3/ mcL (06/15/24 7:03 AM) CO2 [21-32 mmol/L] 29 mmol/L (06/15/24 7:03 AM) TIBC [250-450 mcg/dL] 314 mcg/dL (06/15/24 7:03 AM) Iron [65-175 mcg/dL] 69 mcg/dL (06/15/24 7:03 AM) eGFR Non-AA [>=60] 72 (06/15/24 7:03 AM) eGFR AA [>=60] 72 (06/15/24 7:03 AM) Hemoglobin A1c [4.0-5.6 %] 5.8 % 1 *HI* (06/15/24 7:03 AM) Chloride Level [98-107 mmol/L] 103 mmol/ L (06/15/24 7:03 AM) RDW-CV [11.5-14.5 %] 13.9 % (06/15/24 7:03 AM) Imm Gran Auto [0.0-0.9 %] 0.8 % (06/15/24 7:03 AM) Creatinine Level [0.70-1.30 mg/dL] 1.17 mg/dL (06/15/24 7:03 AM) Eos, Auto [1.0-6.0 %] 2.9 % (06/15/24 7:03 AM) Vitamin D, 25-OH, Total [facility] [30-100 ng/m L] 36 ng/mL 2 *NA* (06/15/24 7:03 AM) 1Interpretive Data: New test method effective 12-15-23. Establishment of new HA1c baseline is recommended. The following A1c interpretive data reflect the 2017 [place] [employer] (ADA) guidelinesand will be reported with each A1c result: Normal: <5.7% Prediabetes: 5.7 - 6.4% Diagnostic for diabetes (if confirmed): ???6.5% 2Result Comment: Vitamin D 25,OH Interpretive Ranges: Deficiency: <10.0 ng/mL Insufficiency: 10.0 - 30.0 ng/mL Sufficiency: 30.0 - 100.0 ng/mL Toxicity: >100.0 ng/mL Requested Start Date/Time: Stop Date/Time: Test performed [place] [address] Social History Social History Type Response Smoking Status Smoking tobacco use: Never tobacco user;Never entered on: 05/04/24 Sex Male Patient Care team information Care Team Personnel Name: Kenia Devine MD Position: Physician Member Role: Informed Provider Address: Address: [address] [place] [address] [address] Name: Veronique oRwan SCRIPT ARTIST Position: No Access Member Role: Nurse Practitioner Address: Address: [address] [facility] [address] Name: Irma Monteiro SCRIPT ARTIST Position: Physician Member Role: Nurse Practitioner Address: Address: [address] [place] [address] Care Team Related Persons Name: SALO BARBOSA Name: JANET BARBOSA
--- OUTSIDE RECORDS SUMMARY | 2024-07-07 11:40 | XMS_ITS | Continuity of Care Document ---
Author Organization [facility] Address [address] [place] [address] Care Team Providers Care Industrial Truck Operator Name Role Phone Kenia Devine Primary Care Physician Encounter [facility] Date(s): 08/13/22 - 08/13/22 [facility] [address] [place] [address] Discharge Disposition: Home or Self Care Attending [...] rectal suppository 25 mg = 1 supp, IN, every 4 hr, PRN as needed for nausea/vomiting, # 12 supp, 0 Refill(s), Pharmacy: [facility], 178, cm, 06/27/22 6:14:00 EDT, Height/Length Dosing, 118.85, kg, 06/27/22 6:14:00 EDT, Weight Dosing Start Date: 06/27/22 Status: Ordered !-Zofran ODT 4 mg oral tablet, disintegrating 4 mg = 1 tab, Oral, Once, PRN as needed for nausea/vomiting, # 20 tab, 0 Refill(s), Pharmacy: [facility] #58, 178, cm, 08/13/22 8:42:00 EDT, Height/Length Dosing, 117.9, kg, 08/13/22 8:42:00 EDT, Weight Dosing Start Date: 08/13/22 Status: Ordered Albuterol (Eqv-ProAir HFA) 90 mcg/inh inhalation aerosol 180 mcg 2 puffs, Inhale, every 4 hr, PRN not specified, # 18 g, 0 Refill(s), Pharmacy: [facility], 177, cm, 06/07/22 17:11:00 EDT, Height/Length Dosing, 119, kg, 06/07/22 17:11:00 EDT, Weight Dosing Start Date: 06/16/22 Status: Ordered amitriptyline 25 mg oral tablet 25 mg = 1 tab, Oral, every night at bedtime, # 90 tab, 1 Refill(s), Pharmacy: [facility] #58,177.8, cm, 07/08/22 7:12:00 EDT, Height/Length Dosing, 117.93, kg, 07/08/22 7:12:00 EDT, Weight Dosing Start Date: 07/16/22 Status: Ordered amLODIPine 10 mg oral tablet 10 mg = 1 tab, Oral, Daily Start Date: 05/01/22 Status: Ordered aprepitant 80 mg oral capsule 80 mg = 1 cap, Oral, every morning, # 30 cap, 0 Refill(s), Pharmacy: [facility] #58, 177.8, cm, 07/08/22 7:12:00 EDT, Height/Length Dosing, 117.93, kg, 07/08/22 7:12:00 EDT, Weight Dosing Start Date: 07/10/22 Status: Ordered baclofen 10 mg oral tablet 10 mg = 1 tab, Oral, TID, PRN other (see comment), as needed, # 21 tab, 0 Refill(s), Pharmacy: [facility]58, 177.8, cm, 04/12/22 11:32:00 EDT, Height/Length Dosing, 117, kg, 04/12/22 11:32:00EDT, Weight Dosing Start Date: 05/26/22 Status: Ordered capsaicin 0.025% topical cream 1 barrera, Topical, TID, PRN other (see comment), APPLY TO THE AFFECTED AREA(S) NEEDED Start Date: 07/19/22 Status: Ordered Carafate 1 g oral tablet 1 g = 1 tab, Oral, BID, # 20 cap, 0 Refill(s), Pharmacy: [facility] #58, 178, cm, 08/13/22 8:42:00 EDT, Height/Length Dosing, 117.9, kg, 08/13/22 8:42:00 EDT, Weight Dosing Start Date: 08/13/22 Status: Ordered Claritin 10 mg oral tablet 10 mg = 1 tab, Oral, Daily Start Date: 07/19/22 Status: Ordered diclofenac 1% topical gel See Instructions, PRN other (see comment), APPLY 2 GRAMS TO THE AFFECTED AREA(S) BY TOPICAL ROUTE 3TIMES PER DAY as needed Start Date: 05/01/22 Status: Ordered EpiPen 2-Flip 0.3 mg injectable kit 0.3 mg =, IM, Once, # 1 EA, 0 Refill(s), Pharmacy: [facility] #58, 177.8, cm, 06/01/22 17:05:00 EDT, Height/Length Dosing, 117.93, kg, 06/01/22 17:05:00 EDT, Weight Dosing Start Date: 06/04/22 Status: Ordered escitalopram 20 mg oral tablet 20 mg = 1 tab, Oral, every morning, # 30 tab, 2 Refill(s), Pharmacy: [facility], 178, cm,08/12/22 6:44:00 EDT, Height/Length Dosing, 117.9, kg, 08/12/22 6:44:00 EDT, Weight Dosing Start Date: 08/12/22 Stop Date: 11/10/22 Status: Ordered theodora oral capsule See Instructions, take 1 tablet on tongue at onset of nausea. Repeat every 6 hours as needed, # 20 tab, 0 Refill(s), Pharmacy: [facility]58, 178, cm, 08/13/22 8:42:00 EDT, Height/Length Dosing, 117.9, kg, 08/13/22 8:42:00 EDT, Weight Dosing Start Date: 08/13/22 Status: Ordered ibuprofen 800 mg oral tablet 800 mg = 1 tab, Oral, every 8 hr, PRN other (see comment), as needed Start Date: 05/01/22 Status: Ordered melatonin 3 mg oral tablet 9 mg = 3 tab, Oral, every day at bedtime Start Date: 07/19/22 Status: Ordered metoprolol succinate 50 mg oral capsule, extended release 50 mg = 1 cap, Oral, Daily, # 90 cap, 0 Refill(s), Pharmacy: [facility]58, 177.8, cm, 06/01/22 17:05:00 EDT, Height/Length Dosing, 117.93, kg, 06/01/22 17:05:00 EDT, Weight Dosing Start Date: 06/04/22 Status: Ordered MiraLax oral powder for reconstitution 17 g, Oral, Daily, PRN other (see comment), as needed for 60 days Start Date: 07/19/22 Status: Ordered mirtazapine 30 mg oral tablet 30 mg = 1 tab, Oral, every night at bedtime, # 30 tab, 2 Refill(s), Pharmacy: [facility]58,178, cm, 08/12/22 6:44:00 EDT, Height/Length Dosing, 117.9, kg, 08/12/22 6:44:00 EDT, Weight Dosing Start Date: 08/12/22 Stop Date: 11/10/22 Status: Ordered omeprazole 40 mg oral delayed release capsule 40 mg = 1 cap, Oral, Daily Start Date: 05/01/22 Status: Ordered ondansetron 4 mg oral tablet, disintegrating 4 mg = 1 tab, Oral, every 6 hr, PRN other (see comment), as needed Start Date: 05/01/22 Status: Ordered ondansetron 4 mg oral tablet, disintegrating 4 mg = 1 tab, Oral, every 6 hr, PRN nausea, # 25 tab, 0 Refill(s), Pharmacy: [facility], 177.8, cm, 06/01/22 17:05:00 EDT, Height/Length Dosing, 117.93, kg, 06/01/22 17:05:00 EDT, Weight Dosing Start Date: 06/02/22 Status: Ordered prochlorperazine 10 mg oral tablet 10 mg = 1 tab, Oral, QID, # 28 tab, 0 Refill(s), Pharmacy: [facility], 178, cm, 08/11/22 6:40:00 EDT, Height/Length Dosing, 117.9, kg, 08/11/22 6:40:00 EDT, Weight Dosing Start Date: 08/11/22 Status: Ordered risperiDONE 1 mg oral tablet 1 mg = 1 tab, Oral, every night at bedtime, # 30 tab, 2 Refill(s), Pharmacy: [facility], 178, cm, 08/12/22 6:44:00 EDT, Height/Length Dosing, 117.9, kg, 08/12/22 6:44:00 EDT, Weight Dosing Start Date: 08/12/22 Stop Date: 11/10/22 Status: Ordered Symbicort 80 mcg-4.5 mcg/inh inhalation aerosol 2 puffs, Inhale, BID, 0 Refill(s) Start Date: 05/01/22 Status: Ordered tamsulosin 0.4 mg oral capsule 0.4 mg = 1 cap, Oral, Daily Start Date: 07/19/22 Status: Ordered Problem List Condition Effective Dates Status Health Status Inform ant Adult attention deficit hype ractivity disorder(Confirmed) 06/28/21 Active Allergic rhinitis(Confirmed) Active Chest pain(Confirmed) Active Vomiting(Confirmed) Active Dysuria(Confirmed) 06/23/18 Active Gastroesophageal reflux disease(Confirmed) Active Hypertensive disorder(Confirmed) Active Unilateral inguinal hernia(Confirmed) 2003 Active Insomnia(Confirmed) Active Mild intermittent asthma(Confirmed) Active Nausea and vomiting(Confirmed) Active Obesity(Confirmed) Active Obstructive sleep apnea syndrome(Confirmed) Active Peanut-induced anaphylaxis(Confirmed) Active Pyloric stenosis(Confirmed) 09/20/19 Active Depression, major, recurrent , 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 01/25/2020 polyp of colon, gastric polyposis; 02/02/2015 solitary small rectal polyp 2hiatal hernia; 05/12/2019 W balloon dilation pyloris, Pyloric stenosis, gastric polyposis; 07/15/2018 hiatal hernia, pyloric stenosis, gastric polyposis Results Laboratory List Name Date Hemoglobin A1c 08/13/22 Most recent to oldest [Reference Range]: 1 Hemoglobin A1c [4.0-6.0 %] 6.1 % *HI* (08/13/22 1:50 PM) Social History Social History Type Response Smoking Status Never; Smoking tobac co use: Never tobacco user entered on: 06/16/22 Sex Male Patient Care team information Personnel Name: Kenia Devine MD Address: Address: [place] [address]- [place]
--- OUTSIDE RECORDS SUMMARY | 2024-07-07 11:40 | XMS_ITS | Continuity of Care Document ---
Author Organization [facility] Address [address] [place] [address] Care Team Providers Care Helmet Hat Brim Cutter Name Role Phone Kenia Devine Primary Care Physician Encounter [facility] Date(s): 11/11/23 - 11/11/23 [facility] [address] [place] [address] Encounter Diagnosis Cough(Discharge Diagnosis) - 11/11/23 Discharge Disposition: Home or Self Care Attending Physician: Kenia Devine MD Admitting Physician: Kenia Devine MD Referring Physician: Kenia Devine MD Allergies, Adverse Reactions, Alerts Substance Reaction Severity Status HOUSE DUST MITE Unknown Active MOLD Unknown Active EGG Vomiting Unknown Active FISH CONTAINING PRODUCTS Vomiting Unknown Act alicia TREE NUT Anaphylactic reaction Unknown Active metoclopramide Urticaria Unknown Active acetaminophen-hydrocodone Vomiting Unknown Ac tive hydroCHLOROthiazide 1 Unknown Active PEANUT 2 Anaphylaxis Severe Active 1laryngeal spasm 2fatal(deprecated) Assessment and Plan Future Appointments Future Scheduled [...] NEEDED, # 8.5 g, 7 Refill(s), Pharmacy: [facility] #58, 178, cm, 05/03/23 10:32:00 EDT, Height/Length Dosing, 125.7, kg, 05/03/23 10:32:00 EDT, Weight Dosing Start Date: 07/10/23 Status: Ordered amitriptyline 100 mg oral tablet 100 mg = 1 tab, Oral, every day at bedtime, # 90 tab, 2 Refill(s), Pharmacy: [facility] #58, 178.5, cm, 10/07/23 14:51:00 EST, Height, 117.9, kg, 10/07/23 14:59:00 EST, Weight Dosing Start Date: 10/07/23 Status: Ordered Ativan 1 mg oral tablet 1 mg = 1 tab, Oral, Daily, PRN nausea/vomiting, Use as needed during cyclical vomiting episodes, 1 mg tab every 4 hrs PRN until resolved, # 30 tab, 0 Refill(s), Pharmacy: [facility] #58, 178, cm, 05/03/23 10:32:00 EDT, Height/Length Dosing, 125.7, kg, 05/03/23 10:32:00 EDT, Weight Dosing Start Date: 07/21/23 Status: Ordered azithromycin 250 mg oral tablet See Instructions, Oral, Daily, Take 2 tabs on day 1 and 1 tab on day 2-5, # 6 tab, 0 Refill(s), Pharmacy: [facility] #58, 178.5, cm, 10/07/23 14:51:00 EST, Height, 116.95, kg, 11/04/23 14:29:00EST, Weight Dosing Start Date: 11/04/23 Status: Ordered capsaicin 0.025% topical cream 1 barrera, Topical, TID, PRN other (see comment), APPLY TO THE AFFECTED AREA(S) NEEDED Start Date: 07/19/22 Status: Ordered EpiPen 2-Flip 0.3 mg injectable kit 0.3 mg =, IM, Once, # 1 EA, 0 Refill(s), Pharmacy: [facility] #58, 177.8, cm, 06/01/22 17:05:00 EDT, Height/Length Dosing, 117.93, kg, 06/01/22 17:05:00 EDT, Weight Dosing Start Date: 06/04/22 Status: Ordered escitalopram 20 mg oral tablet 20 mg = 1 tab, Oral, every morning, # 30 tab, 2 Refill(s), Pharmacy: [facility] #58, 178.5, cm, 10/07/23 14:51:00 EST, Height, 122.25, kg, 10/14/23 8:32:00 EST, Weight Dosing Start Date: 10/14/23 Stop Date: 01/12/24 Status: Ordered haloperidol 2 mg oral tablet 2 mg = 1 tab, Oral, QID, PRN nausea, # 45 tab, 1 Refill(s), 07/30/24 3:50:00 PM CDT, Pharmacy: [facility] #58, 177.8, cm, 07/30/23 7:34:00 EDT, Height/Length Dosing, 121.3, kg, 07/30/23 7:34:00 EDT, Weight Dosing Start Date: 07/30/23 Stop Date: 07/30/24 Status: Ordered haloperidol 2 mg oral tablet 2 mg = 1 tab, Oral, every 6 hr, PRN nausea/vomiting, # 60 tab, 11 Refill(s), 08/01/24 7:57:00 AM CDT, Pharmacy: [facility] #58, 177, cm, 08/01/23 8:37:00 EDT, Height/Length Dosing, 129, kg, 08/01/23 8:37:00 EDT, Weight Dosing Start Date: 08/01/23 Stop Date: 08/01/24 Status: Ordered ibuprofen 800 mg oral tablet 800 mg = 1 tab, Oral, every 8 hr, PRN other (see comment), as needed Start Date: 05/01/22 Status: Ordered lisinopril 10 mg oral tablet 1 tab, Oral, Daily, # 90 tab, 3 Refill(s), Pharmacy: [facility] #58, 178, cm, 05/03/23 10:32:00 EDT, Height/Length Dosing, 125.7, kg, 05/03/23 10:32:00 EDT, Weight Dosing Start Date: 06/11/23 Status: Ordered melatonin 3 mg oral tablet 9 mg = 3 tab, Oral, every day at bedtime Start Date: 07/19/22 Status: Ordered metFORMIN 500 mg oral tablet 500 mg = 1 tab, Oral, BID, with meals, # 90 tab, 1 Refill(s), Pharmacy: [facility] #58, 178.5, cm, 10/07/23 14:51:00 EST, Height, 122.25, kg, 10/14/23 8:32:00 EST, Weight Dosing Start Date: 10/27/23 Status: Ordered Metoprolol Succinate ER 50 mg oral tablet, extended release 1 tab, Oral, Daily, # 90 tab, 3 Refill(s), Pharmacy: [facility] #58, 177, cm, 08/01/23 8:37:00 EDT, Height/Length Dosing, 129, kg, 08/01/23 8:37:00 EDT, Weight Dosing Start Date: 08/23/23 Status: Ordered mirtazapine 30 mg oral tablet 30 mg = 1 tab, Oral, every night at bedtime, # 30 tab, 2 Refill(s), Pharmacy: [facility] #58,178.5, cm, 10/07/23 14:51:00 EST, Height, 122.25, kg, 10/14/23 8:32:00 EST, Weight Dosing Start Date: 10/14/23 Stop Date: 01/12/24 Status: Ordered omeprazole 40 mg oral delayed release capsule See Instructions, TAKE ONE CAPSULE BY MOUTH EVERY DAY, # 90 cap, 3 Refill(s), Pharmacy: [facility] #58, 178, cm, 12/13/22 13:06:00 EST, Height/Length Dosing, 126, kg, 12/13/22 13:06:00 EST, Weight Dosing Start Date: 02/25/23 Status: Ordered prochlorperazine 10 mg oral tablet 10 mg = 1 tab, Oral, QID, PRN nausea, # 20 tab, 0 Refill(s), Pharmacy: [facility] #58, 177, cm, 08/01/23 8:37:00 EDT, Height/Length Dosing, 129, kg, 08/01/23 8:37:00 EDT, Weight Dosing Start Date: 08/01/23 Status: Ordered risperiDONE 1 mg oral tablet 1 mg = 1 tab, Oral, every night at bedtime, # 30 tab, 2 Refill(s), Pharmacy: [facility] #58, 178.5, cm, 10/07/23 14:51:00 EST, Height, 122.25, kg, 10/14/23 8:32:00 EST, Weight Dosing Start Date: 10/14/23 Stop Date: 01/12/24 Status: Ordered Symbicort 80 mcg-4.5 mcg/inh inhalation aerosol 2 puffs, Inhale, BID, # 10.2 g, 5 Refill(s), Pharmacy: [facility][id number], 177.8, cm, 09/22/22 6:14:00 EST, Height/Length [...] Physician Member Role: Informed Provider Address: Address: [address] Name: Veronique Rowan FOUND[employer] CEO [employer] PRESIDENT Position: Physician Member Role: Nurse Practitioner Address: Address: [address] Name: Irma Monteiro NP Position: Physician Member Role: Nurse Practitioner Address: Address: [address] [place] [address] Care Team Related Persons Name: SALO BARBOSA Name: JANET BARBOSA
--- OUTSIDE RECORDS SUMMARY | 2024-07-07 11:40 | XMS_ITS | Continuity of Care Document ---
Author Organization [facility] Address [address] [place] [address] Care Team Providers Care Mobile Pet Groomer Name Role Phone LionelKenia Primary Care Physician [phone] [facility]counter [facility] Date(s): 09/22/22 - 09/22/22 [facility] [address] [place] [address] Encounter Diagnosis Cyclic vomiting syndrome(Discharge Diagnosis) - 09/22/22 Discharge Disposition: Home or Self Care Attending Physician: Roderick Marks MD Admitting Physician: Roderick Marks MD Allergies, Adverse Reactions, Alerts Substance Reaction Severity Status HOUSE DUST MITE Unknown Active MOLD Unknown Active EGG Vomiting Unknown Active FISH CONTAINING PRODUCTS Vomiting Unknown Act alicia TREE NUT Anaphylactic reaction Unknown Active PEANUT 1 Anaphylaxis Severe Active metoclopramide Urticaria Unknown Active acetaminophen-hydrocodone Vomiting Unknown Ac tive hydroCHLOROthiazide 2 Unknown Active 1fatal(deprecated) 2laryngeal spasm Assessment and Plan Extracted from: Title:Clinical Document Author:Magali Sarah Date :09/22/22 Diagnosis: 1. Cyclic vomitin g syndrome Comment: Diagnosis: Nausea Comment: Future Appointments Future Scheduled Tests Radiology* MRI MRCP w/o Contrast 09/16/22 Functional Status 09/22/22 Family Member Travel History No recent t [...] rectal suppository 25 mg = 1 supp, [place], every 4 hr, PRN as needed for nausea/vomiting, # 30 supp, 0 Refill(s), Pharmacy: [id number], 178, cm, 09/04/22 7:09:00 EDT, Height/Length Dosing, 119, kg, 09/04/22 7:09:00 EDT, Weight Dosing Start Date: 09/16/22 Status: Ordered !-Zofran ODT 4 mg oral tablet, disintegrating 4 mg = 1 tab, Oral, every 8 hr, PRN as needed for nausea/vomiting, # 20 tab, 0 Refill(s), Pharmacy:[facility], 178, cm, 08/13/22 8:42:00 EDT, Height/Length Dosing, 117.9, kg, 08/13/22 8:42:00 EDT, Weight Dosing Start Date: 08/14/22 Status: Ordered Albuterol (Eqv-ProAir HFA) 90 mcg/inh inhalation aerosol 180 mcg 2 puffs, Inhale, every 4 hr, PRN not specified, # 18 g, 0 Refill(s), Pharmacy: [facility], 177, cm, 06/07/22 17:11:00 EDT, Height/Length Dosing, 119, kg, 06/07/22 17:11:00 EDT, Weight Dosing Start Date: 06/16/22 Status: Ordered amitriptyline 25 mg oral tablet 25 mg = 1 tab, Oral, every night at bedtime, # 90 tab, 1 Refill(s), Pharmacy: [facility],177.8, cm, 07/08/22 7:12:00 EDT, Height/Length Dosing, 117.93, kg, 07/08/22 7:12:00 EDT, Weight Dosing Start Date: 07/16/22 Status: Ordered amLODIPine 10 mg oral tablet 10 mg = 1 tab, Oral, Daily Start Date: 05/01/22 Status: Ordered capsaicin 0.025% topical cream 1 barrera, Topical, TID, PRN other (see comment), APPLY TO THE AFFECTED AREA(S) NEEDED Start Date: 07/19/22 Status: Ordered Claritin 10 mg oral tablet 10 mg = 1 tab, Oral, Daily Start Date: 07/19/22 Status: Ordered EpiPen 2-Flip 0.3 mg injectable kit 0.3 mg =, IM, Once, # 1 EA, 0 Refill(s), Pharmacy: [facility], 177.8, cm, 06/01/22 17:05:00 EDT, Height/Length Dosing, 117.93, kg, 06/01/22 17:05:00 EDT, Weight Dosing Start Date: 06/04/22 Status: Ordered escitalopram 20 mg oral tablet 20 mg = 1 tab, Oral, every morning, # 30 tab, 2 Refill(s), Pharmacy: [facility], 178, cm,08/12/22 6:44:00 EDT, Height/Length Dosing, 117.9, kg, 08/12/22 6:44:00 EDT, Weight Dosing Start Date: 08/12/22 Stop Date: 11/10/22 Status: Ordered gabapentin 100 mg oral capsule 100 mg = 1 cap, Oral, TID, # 90 cap, 0 Refill(s), Pharmacy: [facility], 178, cm, 227:09:00 EDT, Height/Length Dosing, 119, kg, 09/04/22 7:09:00 EDT, Weight Dosing Start Date: 09/16/22 Status: Ordered theodora oral capsule See Instructions, take 1 tablet on tongue at onset of nausea. Repeat every 6 hours as needed, # 20 tab, 0 Refill(s), Pharmacy: [facility], 178, cm, 08/13/22 8:42:00 EDT, Height/Length [...] Daily, # 90 cap, 3 Refill(s), Pharmacy: [facility], 178, cm, 08/13/22 8:42:00 EDT, Height/Length Dosing, 117.9, kg, 08/13/22 8:42:00 EDT, Weight Dosing Start Date: 09/03/22 Status: Ordered MiraLax oral powder for reconstitution 17 g, Oral, Daily, PRN other (see comment), as needed for 60 days Start Date: 07/19/22 Status: Ordered mirtazapine 30 mg oral tablet 30 mg = 1 tab, Oral, every night at bedtime, # 30 tab, 2 Refill(s), Pharmacy: [facility]58,178, cm, 08/12/22 6:44:00 EDT, Height/Length Dosing, 117.9, kg, 08/12/22 6:44:00 EDT, Weight Dosing Start Date: 08/12/22 Stop Date: 11/10/22 Status: Ordered omeprazole 40 mg oral delayed release capsule 40 mg = 1 cap, Oral, Daily Start Date: 05/01/22 Status: Ordered risperiDONE 1 mg oral tablet 1 mg = 1 tab, Oral, every night at bedtime, # 30 tab, 2 Refill(s), Pharmacy: [facility], 178, cm, 08/12/22 6:44:00 EDT, Height/Length Dosing, 117.9, kg, 08/12/22 6:44:00 EDT, Weight Dosing Start Date: 08/12/22 Stop Date: 11/10/22 Status: Ordered Symbicort 80 mcg-4.5 mcg/inh inhalation aerosol 2 puffs, Inhale, BID, 0 Refill(s) Start Date: 05/01/22 Status: Ordered tamsulosin 0.4 mg oral capsule 0.4 mg = 1 cap, Oral, Daily Start Date: 07/19/22 Status: Ordered Problem List Condition Confirmation Course Effective Dates Status H ealth Status Informant Adult attention deficit hyperactivity disorder Confirmed 06/28/21 Active Allergic rhinitis Confirmed Active Chest pain Confirmed Active Vomiting Confirmed Active Dysuria Confirmed 06/23/18 Active Gastroesophageal reflux disease Confirmed Active Hypertensive disorder Confirmed Active Unilateral [...] gastric polyposis Results Laboratory List Name Date CBC w/ Diff 09/22/22 Comprehensive Metabolic Panel 09/22/22 Lipase Level 09/22/22 Automated Diff 09/22/22 Most recent to oldest [Reference Range]: 1 WBC [5.0-10.0 x10^3/mcL] 6.7 x10^3/mcL (09/22/22 6:38 AM) RBC [4.6-6.0 x10^6/mcL] 4.6 x10^6/mcL (09/22/22 6:38 AM) Neutro Auto [40.0-75.0 %] 73.3 % (09/22/22 6:38 AM) Lymph Auto [20.0-50.0 %] 11.9 % *LOW* (09/22/22 6:38 AM) [place] Auto [2.0-15.0 %] 11.4 % (09/22/22 6:38 AM) Basophil Auto [0.0-1.0 %] 0.6 % (09/22/22 6:38 AM) BUN [7-18 mg/dL] 15 mg/dL (09/22/22 6:38 AM) Glucose Level [74-106 mg/dL] 197 mg/dL *HI* (09/22/22:38 AM) Potassium Level [3.5-5.1 mmol/L] 3.0 mmo l/L *LOW* (09/22/22 6:38 AM) MCV [80.0-96.0] 81.9 (09/22/22 6:38 AM) AST [15-37 unit/L] 20 unit/L (09/22/22 6:38 AM) ALT [16-63 unit/L] 42 unit/L (09/22/22:38 AM) MCHC [31.0-35.0 g/dL] 34.7 g/dL (09/22/22 6:38 AM) Sodium Level [136-145 mmol/L] 137 mmol/L (09/22/22 6:38 AM) Hct [41.0-51.0 %] 38.0 % *LOW* (09/22/22:38 AM) Lipase Level [16-77 unit/L] 23 unit/L (09/22/22:38 AM) Calcium Level [8.5-10.1 mg/dL] 8.5 mg/dL (09/22/22 6:38 AM) Albumin Level [3.4-5.0 g/dL] 3.3 g/dL *LOW* (09/22/22 6:38 AM) Protein Total [6.4-8.2 g/dL] 7.0 g/dL (09/22/22 6:38 AM) MCH [26.0-32.0 pg] 28.4 pg (09/22/22 6:38 AM) Neutro Absolute 4.9 x10^3/mcL *NA* (09/22/22:38 AM) Bilirubin Total [0.2-1.0 mg/dL] 0.9 mg/d L (09/22/22 6:38 AM) Hgb [14.0-18.0 g/dL] 13.2 g/dL *LOW* (09/22/22 6:38 AM) Alk Phos [46-146 unit/L] 145 unit/L (09/22/22 6:38 AM) Platelets [130-450 x10^3/mcL] 209 x10^3/ mcL (09/22/22 6:38 AM) CO2 [21-32 mmol/L] 28 mmol/L (09/22/22 6:38 AM) eGFR Non-AA [>=60] 86 (09/22/22 6:38 AM) eGFR AA [>=60] 86 (09/22/22 6:38 AM) Chloride Level [98-107 mmol/L] 100 mmol/ L (09/22/22 6:38 AM) RDW-CV [11.5-17.0 %] 13.3 % (09/22/22 6:38 AM) Imm Gran Auto [0.0-0.9 %] 0.8 % (09/22/22 6:38 AM) Creatinine Level [0.70-1.30 mg/dL] 1.01 mg/dL (09/22/22 6:38 AM) Eos, Auto [1.0-6.0 %] 2.0 % (09/22/22 6:38 AM) Vital Signs Most recent to oldest [Reference Range]: 1 2 3 Temperature Temporal Artery [36-38 Deg C] 35.5 Deg C *LOW* (09/22/22 6:05 AM) Peripheral Pulse Rate [60-100 bpm] 99 bpm (09/22/22 1:10 PM) 92 bpm (09/22/22 9:18 AM) 99 bpm (09/22/22 6:05 AM) Respiratory Rate [12-24 br/min] 18 br/min (09/22/22 1:10 PM) 20 br/min (09/22/22 9:18 AM) 23 br/min (09/22/22 6:05 AM) Blood Pressure [90-140/60-90 mmHg] 139/88mmHg (09/22/22 1:10 PM) 177/97mmHg *HI* (09/22/22 9:18 AM) 174/112mmHg *HI* (09/22/22 6:05 AM) Weight Dosing 123.83 kg (09/22/22 6:14 AM) Weight Estimated 123.83 kg (09/22/22 6:05 AM) Height/Length Dosing 177.800 cm (09/22/22 6:14 AM) Height/Length Estimated 177.800 cm (09/22/22 6:05 AM) Social History Social History Type Response Smoking Status Never; Smoking tobac co use: Never tobacco user entered on: 06/16/22 Sex Male Physician Emergency department Note * Rob Mondragon MD: PERFORM Event Display: ED Note Physician Authored Date: [id number] EUGENIA KNOWLES :1965 Age:57 years Sex:Male Visit Date:09/22/2022 Primary Care Physician: Kenia Devine MD Basic Information Time Seen: Felipe Lance MD / 09/22/2022 06:13 Chief Complaint Same as usual N/V/D. ??I woke up ok at 5, had breakfast (cereal and a doughnut) and it started 5 mins after that, ??I used a suppository ??(at 0540) but I pooped it right out Physical Exam Vitals & Measurements T:??35.5?C ??(Temporal Artery)?? HR:??92??(Peripheral)?? RR:??20?? BP:??177/97?? SpO2:??96%?? HT:??177.800??cm?? WT:??123.83??kg??(Estimated)?? O2 Therapy:??Room air?? Procedure No Qualifying Data Assessment/Plan 1.??Cyclic vomiting syndrome??R11.15 Ordered: Discharge Patient, 09/22/22 12:56:00 EST, Home Independently, Constant Indicator ?? Orders: !-Haldol, 5 mg = 1 mL, Slow IV Push, Soln, Once, PRN agitation, First Dose: 09/22/22 10:32:00 EST, Physician Stop, STAT Medication Reconciliation Unchanged albuterol (Albuterol (Eqv-ProAir HFA) 90 mcg/inh inhalation aerosol)2 Puffs Inhale (breathe in) every 4 hours as needed not specified. Refills: 0. ?? amitriptyline (amitriptyline 25 mg oral tablet)1 tab Oral (given by mouth) every night at bedtime. Refills: 1. ?? amLODIPine (amLODIPine 10 mg oral tablet)1 tab Oral (given by mouth) every day. ?? budesonide-formoterol (Symbicort 80 mcg-4.5 mcg/inh inhalation aerosol)2 Puffs Inhale (breathe in) 2 times a day. ?? capsaicin topical (capsaicin 0.025% topical cream)1 Application Topical (on the skin) 3 times a dayas needed other (see comment). APPLY TO THE AFFECTED AREA(S) NEEDED. ?? EPINEPHrine (EpiPen 2-Flip 0.3 mg injectable kit)0.3 Milligrams Intramuscular (in a muscle) once. Refills: 0. ?? escitalopram (escitalopram 20 mg oral tablet)1 tab Oral (given by mouth) every morning for 30 Days.Refills: 2. ?? gabapentin (gabapentin 100 mg oral capsule)1 Capsules Oral (given by mouth) 3 times a day. Refills:0. ?? theodora (theodora oral capsule)take 1 tablet on tongue at onset of nausea. Repeat every 6 hours as needed. Refills: 0. ?? ibuprofen (ibuprofen 800 mg oral tablet)1 tab Oral (given by mouth) every 8 hours as needed other (see comment). as needed. ?? loratadine (Claritin 10 mg oral tablet)1 tab Oral (given by mouth) every day. ?? melatonin (melatonin 3 mg oral tablet)3 tab Oral (given by mouth) every night at bedtime. ?? metoprolol (metoprolol succinate 50 mg oral capsule, extended release)1 Capsules Oral (given by mouth) every day. Refills: 3. ?? mirtazapine (mirtazapine 30 mg oral tablet)1 tab Oral (given by mouth) every night at bedtime for 30 Days. Refills: 2. ?? omeprazole (omeprazole 40 mg oral delayed release capsule)1 Capsules Oral (given by mouth) every day. ?? ondansetron (!-Zofran ODT 4 mg oral tablet, disintegrating)1 tab Oral (given by mouth) every 8 hours as needed as needed for nausea/vomiting. Refills: 0. ?? polyethylene glycol 3350 (MiraLax oral powder for reconstitution)17 Gram Oral (given by mouth) every day as needed other (see comment). as needed for 60 days. ?? promethazine (!-Phenergan 25 mg rectal suppository)1 Suppositories Per rectum (in the rectum) every4 hours as needed as needed for nausea/vomiting. Refills: 0. ?? risperiDONE (risperiDONE 1 mg oral tablet)1 tab Oral (given by mouth) every night at bedtime for 30Days. Refills: 2. ?? tamsulosin (tamsulosin 0.4 mg oral capsule)1 Capsules Oral (given by mouth) every day. Problem List/Past Medical History Ongoing Adult attention deficit hyperactivity disorder Allergic rhinitis Chest pain Depression, major, recurrent, mild Dysuria Gastroesophageal reflux disease Hypertensive disorder Insomnia Mild intermittent asthma Nausea & vomiting Nausea and vomiting Obesity Obstructive sleep apnea syndrome Peanut-induced anaphylaxis Pyloric stenosis Severe recurrent major depression without psychotic features Suicidal thoughts Tremor Unilateral inguinal hernia Vomiting Historical Recurrent major depression in full remission Procedure/Surgical History ???Colonoscopy (08/31/2020)???Upper gastrointestinal endoscopy, w/ dilation of gastric outlet for obstruction (06/10/2019)???EGD (05/12/2019)???Hydrocelectomy???Repair of right inguinal hernia Medication Administration Given !-Haldol, 2 mg, Slow IV Push 0.9% NaCl bolus, 1 L, IV Bolus Ativan, 1 mg, IV Push Benadryl, 12.5 mg, IV Push LORazepam, 1 mg, IV Push potassium chloride, 20 mEq, IV Piggyback Allergies PEANUT??(Anaphylaxis) EGG??(Vomiting) FISH CONTAINING PRODUCTS??(Vomiting) HOUSE DUST MITE MOLD TREE NUT??(Anaphylactic reaction) acetaminophen-hydrocodone??(Vomiting) hydroCHLOROthiazide metoclopramide??(Urticaria) Social History Alcohol Never Electronic Cigarette/Vaping Electronic Cigarette Use: Never. 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 Nutrition/Health Diet: Regular. Caffeine intake amount: couple glasses of soda daily. Psychosocial Substance Use Never Tobacco Never tobacco user Tobacco Use:. Never Smokeless Tobacco use:. Family History Arteriosclerotic heart disease: Father. Depressive disorder: Father. Lab Results CBC and Differential?? LATEST RESULTS?? HISTORICAL RESULTS?? WBC?? 09/22/22 06:38?? 6.7?? 09/19/22?? 10.7 ??High?? RBC?? 09/22/22 06:38?? 4.6?? 09/19/22?? 4.7?? Hgb?? 09/22/22 06:38?? 13.2 ??Low?? 09/19/22?? 13.3 ??Low?? Hct?? 09/22/22 06:38?? 38.0 ??Low?? 09/19/22?? 38.2 ??Low?? MCV?? 09/22/22 06:38?? 81.9?? 09/19/22?? 80.8?? MCH?? 09/22/22 06:38?? 28.4?? 09/19/22?? 28.1?? MCHC?? 09/22/22 06:38?? 34.7?? 09/19/22?? 34.8?? RDW-CV?? 09/22/22 06:38?? 13.3?? 09/19/22?? 13.0?? Platelets?? 09/22/22 06:38?? 209?? 09/19/22?? 261?? Neutro Auto?? 09/22/22 06:38?? 73.3?? 09/04/22?? 74.4?? Lymph Auto?? 09/22/22 06:38?? 11.9 ??Low?? 09/04/22?? 16.3 ??Low?? [place] Auto?? 09/22/22 06:38?? 11.4?? 09/04/22?? 7.1?? Eos, Auto?? 09/22/22 06:38?? 2.0?? 09/04/22?? 1.4?? Basophil Auto?? 09/22/22 06:38?? 0.6?? 09/04/22?? 0.3?? Imm Gran Auto?? 09/22/22 06:38?? 0.8?? 09/04/22?? 0.5?? Neutro Absolute?? 09/22/22 06:38?? 4.9?? 09/04/22?? 4.4? Routine Chemistry?? LATEST RESULTS?? HISTORICAL RESULTS?? Sodium Level?? 09/22/22 06:38?? 137?? 09/19/22?? 136?? Potassium Level?? 09/22/22 06:38?? 3.0 ??Low?? 09/19/22?? 3.6?? Chloride Level?? 09/22/22 06:38?? 100?? 09/19/22?? 102?? CO2?? 09/22/22 06:38?? 28?? 09/19/22?? 25?? Alk Phos?? 09/22/22 06:38?? 145?? 09/19/22?? 146?? AST?? 09/22/22 06:38?? 20?? 09/19/22?? 26?? ALT?? 09/22/22 06:38?? 42?? 09/19/22?? 45?? BUN?? 09/22/22 06:38?? 15?? 09/19/22?? 12?? Glucose Level?? 09/22/22 06:38?? 197 ??High?? 09/19/22?? 179 ??High?? Creatinine Level?? 09/22/22 06:38?? 1.01?? 09/19/22?? 0.93?? eGFR AA?? 09/22/22 06:38?? 86?? 09/19/22?? 95?? eGFR Non-AA?? 09/22/22 06:38?? 86?? 09/19/22?? 95?? Calcium Level?? 09/22/22 06:38?? 8.5?? 09/19/22?? 9.0?? Protein Total?? 09/22/22 06:38?? 7.0?? 09/19/22?? 7.5?? Albumin Level?? 09/22/22 06:38?? 3.3 ??Low?? 09/19/22?? 3.5?? Bilirubin Total?? 09/22/22 06:38?? 0.9?? 09/19/22?? 0.6?? Lipase Level?? 09/22/22 06:38?? 23?? 09/19/22?? 23? Electronically Signed on 09/22/22 12:57 PM Rob Mondragon MD * Felipe Lance MD: PERFORM Event Display: ED Note Physician Authored Date: [id number] EUGENIA KNOWLES :1965 Age:57 years Sex:Male Visit Date:09/22/2022 Primary Care Physician: Kenia Devine MD Basic Information Time Seen: Felipe Lance MD / 09/22/2022 06:13 Chief Complaint Same as usual N/V/D. ??I woke up ok at 5, had breakfast (cereal and a doughnut) and it started 5 mins after that, ??I used a suppository ??(at 0540) but I pooped it right out History Of Present Illness: This is a 57-year-old gentleman with a history significant for but not limited to cyclic vomiting syndrome,??hypertension,??ADHD presents today for evaluation of nausea and vomiting. ??Awoke feeling well around 5 AM and then tried to have cereal and a doughnut for breakfast. ??Soon after eating he began??having diarrhea and vomiting which he indicates is typical for his cyclic vomiting syndrome. ??Of note he was seen in our emergency department 09/19,??on a prior visit had been noted to have cholelithiasis and he underwent an MRCP ??09/19 which was reassuring.?? He states that symptoms today are entirely nausea/vomiting with no abdominal pain including no pain in the right upper quadrant where he was having discomfort on a prior visit.?? He denies any chest pain, shortness of breath, fever,chills or other concerns this morning. Review of Systems: 10 point review of systems conducted and negative except as noted in the HPI Physical Exam Vitals & Measurements T:??35.5?C ??(Temporal Artery)?? HR:??99??(Peripheral)?? RR:??23?? BP:??174/112?? SpO2:??98%?? HT:??177.800??cm?? WT:??123.83??kg??(Estimated)?? O2 Therapy:??Room air?? CONSTITUTIONAL: _well appearing in no acute distress SKIN: _Warm, dry, and intact without rash EYES: _extraocular movements are grossly intact, clear conjunctiva HENT: _Normocephalic, atraumatic, moist mucus membranes NECK: _no obvious swelling, normal range of motion PULMONARY: _normal chest rise and fall, no respiratory distress or stridor CARDIOVASCULAR: _regular rate, regular rhythm,??distal extremities are warm and well perfused GASTROINTESTINAL: _nondistended, non-tender GENITOURINARY: _deferred NEUROLOGIC: _normal speech, moves all extremities MUSCULOSKELETAL: _no gross deformities, atraumatic PSYCHIATRIC: _normal mood and affect Medical Decision Makin-year-old gentleman with a history significant for cyclical vomiting presenting??with nausea and vomiting??with associated diaphoresis that he indicates is most reminiscent of symptoms of cyclic vomiting.?? He notably has no abdominal tenderness and denies any abdominal pain yielding overall low s uspicion that his??presentation??represents acute biliary disease. ??We will plan to treat symptomatically and provide fluid hydration initially.?? We will check labs to screen for??any evidence of biliary contribution. Procedure No Qualifying Data Assessment/Plan Ordered: Benadryl, 12.5 mg = 0.25 mL, IV Push, Soln-IV, Once, First Dose: 09/22/22 6:40:00 EST, Stop Date: 09/22/22 6:40:00 EST, Physician Stop, STAT !-Haldol, 2 mg = 0.4 mL, Slow IV Push, Soln, Once, First Dose: 09/22/22 6:39:00 EST, Stop Date: 09/22/22 6:39:00 EST, Physician Stop, STAT LORazepam, 1 mg = 0.5 mL, IV Push, Soln, Once, First Dose: 09/22/22 6:39:00 EST, Stop Date: 09/22/22 6:39:00 EST, Physician Stop, STAT 0.9% NaCl bolus, 1 L, IV Bolus, Soln-IV, Once, First Dose: 09/22/22 6:35:00 EST, Stop Date: 09/22/22 6:35:00 EST, Physician Stop, STAT Automated Diff, Blood, Routine, 09/22/22 6:23:00 EST, Once, Nurse collect, [id number] CBC w/ Diff, Blood, Routine, 09/22/22 6:23:00 EST, Once, Nurse collect Comprehensive Metabolic Panel, Blood, Stat, 09/22/22 6:23:00 EST, Once, Nurse collect Lipase Level, Blood, Stat, 09/22/22 6:23:00 EST, Once, Nurse collect Medication Reconciliation Unchanged albuterol (Albuterol (Eqv-ProAir HFA) 90 mcg/inh inhalation aerosol)2 Puffs Inhale (breathe in) every 4 hours as needed not specified. Refills: 0. ?? amitriptyline (amitriptyline 25 mg oral tablet)1 tab Oral (given by mouth) every night at bedtime. Refills: 1. ?? amLODIPine (amLODIPine 10 mg oral tablet)1 tab Oral (given by mouth) every day. ?? budesonide-formoterol (Symbicort 80 mcg-4.5 mcg/inh inhalation aerosol)2 Puffs Inhale (breathe in) 2 times a day. ?? capsaicin topical (capsaicin 0.025% topical cream)1 Application Topical (on the skin) 3 times a dayas needed other (see comment). APPLY TO THE AFFECTED AREA(S) NEEDED. ?? EPINEPHrine (EpiPen 2-Flip 0.3 mg injectable kit)0.3 Milligrams Intramuscular (in a muscle) once. Refills: 0. ?? escitalopram (escitalopram 20 mg oral tablet)1 tab Oral (given by mouth) every morning for 30 Days.Refills: 2. ?? gabapentin (gabapentin 100 mg oral capsule)1 Capsules Oral (given by mouth) 3 times a day. Refills:0. ?? theodora (theodora oral capsule)take 1 tablet on tongue at onset of nausea. Repeat every 6 hours as needed. Refills: 0. ?? ibuprofen (ibuprofen 800 mg oral tablet)1 tab Oral (given by mouth) every 8 hours as needed other (see comment). as needed. ?? loratadine (Claritin 10 mg oral tablet)1 tab Oral (given by mouth) every day. ?? melatonin (melatonin 3 mg oral tablet)3 tab Oral (given by mouth) every night at bedtime. ?? metoprolol (metoprolol succinate 50 mg oral capsule, extended release)1 Capsules Oral (given by mouth) every day. Refills: 3. ?? mirtazapine (mirtazapine 30 mg oral tablet)1 tab Oral (given by mouth) every night at bedtime for 30 Days. Refills: 2. ?? omeprazole (omeprazole 40 mg oral delayed release capsule)1 Capsules Oral (given by mouth) every day. ?? ondansetron (!-Zofran ODT 4 mg oral tablet, disintegrating)1 tab Oral (given by mouth) every 8 hours as needed as needed for nausea/vomiting. Refills: 0. ?? polyethylene glycol 3350 (MiraLax oral powder for reconstitution)17 Gram Oral (given by mouth) every day as needed other (see comment). as needed for 60 days. ?? promethazine (!-Phenergan 25 mg rectal suppository)1 Suppositories Per rectum (in the rectum) every4 hours as needed as needed for nausea/vomiting. Refills: 0. ?? risperiDONE (risperiDONE 1 mg oral tablet)1 tab Oral (given by mouth) every night at bedtime for 30Days. Refills: 2. ?? tamsulosin (tamsulosin 0.4 mg oral capsule)1 Capsules Oral (given by mouth) every day. Problem List/Past Medical History Ongoing Adult attention deficit hyperactivity disorder Allergic rhinitis Chest pain Depression, major, recurrent, mild Dysuria Gastroesophageal reflux disease Hypertensive disorder Insomnia Mild intermittent asthma Nausea & vomiting Nausea and vomiting Obesity Obstructive sleep apnea syndrome Peanut-induced anaphylaxis Pyloric stenosis Severe recurrent major depression without psychotic features Suicidal thoughts Tremor Unilateral inguinal hernia Vomiting Historical Recurrent major depression in full remission Procedure/Surgical History ???Colonoscopy (08/31/2020)???Upper gastrointestinal endoscopy, w/ dilation of gastric outlet for obstruction (06/10/2019)???EGD (05/12/2019)???Hydrocelectomy???Repair of right inguinal hernia Allergies PEANUT??(Anaphylaxis) EGG??(Vomiting) FISH CONTAINING PRODUCTS??(Vomiting) HOUSE DUST MITE MOLD TREE NUT??(Anaphylactic reaction) acetaminophen-hydrocodone??(Vomiting) hydroCHLOROthiazide metoclopramide??(Urticaria) Social History Alcohol Never Electronic Cigarette/Vaping Electronic Cigarette Use: Never. 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 Nutrition/Health Diet: Regular. Caffeine intake amount: couple glasses of soda daily. Psychosocial Substance Use Never Tobacco Never tobacco user Tobacco Use:. Never Smokeless Tobacco use:. Family History Arteriosclerotic heart disease: Father. Depressive disorder: Father. Electronically Signed on 09/22/22 06:42 AM Felipe Lance MD Emergency department Discharge instructions * Rob Mondragon MD: PERFORM Event Display: ED Discharge Information Authored Date: [id number] EUGENIA KNOWLES Linnette :1965 Age:57 years Sex:Male Visit Date:09/22/2022 Primary Care Physician: Kenia Devine MD Discharge Instructions We would like to thank you for allowing us to assist you with your healthcare needs. The following includes patient education materials and information regarding your injury/illness. Diagnosis from Today's Visit Cyclic vomiting syndrome Discharge Vitals Temperature??(Temporal Artery) 95.9 ??F (35.5 ??C) Heart Rate??(Peripheral) 92 Respiratory Rate?? 20 Blood Pressure?? 177/97?? Height?? 70.00 in (177.800 cm) Weight??(Estimated) 273.05 lb (123.83 kg) Allergies PEANUT??(Anaphylaxis) EGG??(Vomiting) FISH CONTAINING PRODUCTS??(Vomiting) HOUSE DUST MITE MOLD TREE NUT??(Anaphylactic reaction) acetaminophen-hydrocodone??(Vomiting) hydroCHLOROthiazide metoclopramide??(Urticaria) What to Do Next Instructions from Your Care Team Resume??current medications. ?? Rob Mondragon MD Upcoming Scheduled Appointments Thursday 10:00 AM EST ?? Thursday 1:45 PM EST ?? Thursday 3:20 PM EST ?? You were treated today on an [...] How Much When Why Instructions Next Dose Unchanged albuterol (Albuterol (Eqv-ProAir HFA) 90 mcg/ inh inhalation aerosol) 2 Puffs Inhale (breathe in) Every 4 hours as needed for not specified Unchanged amitriptyline (amitriptyline 25 mg oral tablet) 1 tab Oral (given by mouth) Every night at bedtime Unchanged amLODIPine (amLODIPine 10 mg oral tablet) 1 tab Oral (given by mouth) Every day Unchanged budesonide-formoterol (Symbicort 80 mcg-4.5 mcg/ inh [...] mild Duration: 30 Days Unchanged gabapentin (gabapentin 100 mg oral capsule) 1 Capsules Oral (given by mouth) 3 times a day Unchanged theodora (theodora oral capsule) See instructions take 1 tablet on tongue at onset of nausea. Repeat every 6 hours as needed ?? Unchanged ibuprofen (ibuprofen 800 mg oral tablet) 1 tab Oral (given by mouth) Every 8 hours as needed for other (see comment) as needed ?? Unchanged loratadine (Claritin 10 mg oral tablet) 1 tab Oral (given by mouth) Every day Unchanged melatonin (melatonin 3 mg oral tablet) [...] (omeprazole 40 mg oral delayed release capsule) 1 Capsules Oral (given by mouth) Every day Unchanged ondansetron (!-Zofran ODT 4 mg oral tablet, disintegrating) 1 tab Oral (given by mouth) Every 8 hours as needed for as needed for nausea/vomiting Unchanged polyethylene glycol 3350 (MiraLax oral powder for reconstitution) 17 Gram Oral (given by mouth) Every day as needed for other (see comment) as needed for 60 days ?? Unchanged promethazine (!-Phenergan 25 mg rectal suppository) 1 Suppositories Per rectum (in the rectum) Every 4 hours as needed for as needed for nausea/vomiting Unchanged risperiDONE (risperiDONE 1 mg oral tablet) 1 tab Oral (given by mouth) Every night at bedtime Depression, major, recurrent, mild Duration: 30 Days Unchanged tamsulosin (tamsulosin 0.4 mg oral capsule) 1 Capsules Oral (given by mouth) Every day Tests Performed Medications and Immunizations Administered Given !-Haldol, 2 mg, Slow IV Push 0.9% NaCl bolus, 1 L, IV Bolus Ativan, 1 mg, IV Push Benadryl, 12.5 mg, IV Push LORazepam, 1 mg, IV Push potassium chloride, 20 mEq, IV Piggyback Lab Test Name Test Result Date/Time WBC 6.7 x10^3/mcL 09/22/2022 06:38 EST RBC 4.6 x10^6/mcL 09/22/2022 06:38 EST Hgb 13.2 g/dL 09/22/2022 06:38 EST Hct 38.0 % 09/22/2022 06:38 EST MCV 81.9 09/22/2022 06:38 EST MCH 28.4 pg 09/22/2022 06:38 EST MCHC 34.7 g/dL 09/22/2022 06:38 EST RDW-CV 13.3 % 09/22/2022 06:38 EST Platelets 209 x10^3/mcL 09/22/2022 06:38 EST Neutro Auto 73.3 % 09/22/2022 06:38 EST Lymph Auto 11.9 % 09/22/2022 06:38 EST [place] Auto 11.4 % 09/22/2022 06:38 EST Eos, Auto 2.0 % 09/22/2022 06:38 EST Basophil Auto 0.6 % 09/22/2022 06:38 EST Imm Gran Auto 0.8 % 09/22/2022 06:38 EST Neutro Absolute 4.9 x10^3/mcL 09/22/2022 06:38 EST Sodium Level 137 mmol/L 09/22/2022 06:38 EST Potassium Level 3.0 mmol/L 09/22/2022 06:38 EST Chloride Level 100 mmol/L 09/22/2022 06:38 EST CO2 28 mmol/L 09/22/2022 06:38 EST Alk Phos 145 unit/L 09/22/2022 06:38 EST AST 20 unit/L 09/22/2022 06:38 EST ALT 42 unit/L 09/22/2022 06:38 EST BUN 15 mg/dL 09/22/2022 06:38 EST Glucose Level 197 mg/dL 09/22/2022 06:38 EST Creatinine Level 1.01 mg/dL 09/22/2022 06:38 EST eGFR AA 86 09/22/2022 06:38 EST eGFR Non-AA 86 09/22/2022 06:38 EST Calcium Level 8.5 mg/dL 09/22/2022 06:38 EST Protein Total 7.0 g/dL 09/22/2022 06:38 EST Albumin Level 3.3 g/dL 09/22/2022 06:38 EST Bilirubin Total 0.9 mg/dL 09/22/2022 06:38 EST Lipase Level 23 unit/L 09/22/2022 06:38 EST Patient/Speeder Tender Signature Patient Name:EUGENIA KNOWLES Linnette I have received this information and my questions have been answered. Patient/Speeder Tender Name: Patient/Speeder Tender Signature: Relationship to Patient: Witness Name/Signature: Date: Electronically Signed on: 09/22/2022 12:57 ESTSigned by:[facility] Discharge summary * Magali Sarah: PERFORM Event Display: Discharge Note Authored Date: * Magali Sarah: PERFORM Event Display: Discharge Note Authored Date: Diagnosis: 1. Cyclic vomiting syndrome Comment: Diagnosis: Nausea Comment: Electronically Signed on 09/22/22 01:32 PM Magali Sarah Patient Care team information Personnel Name: Kenia Devine MD Address: Address: [place] [address]- [place]
--- OUTSIDE RECORDS SUMMARY | 2024-07-07 11:40 | XMS_ITS | Continuity of Care Document ---
Author Organization [facility] Address [address] [place] [address] Care Team Providers Care Preforming Machine Operator Name Role Phone Kenia Devine Primary Care Physician Encounter [facility] Date(s): 08/04/23 - 08/04/23 [facility] [address] [place] [address] Discharge Disposition: Home Allergies, Adverse Reactions, Alerts [...] Plan Future Appointments Future Scheduled Tests Radiology* CT Chest w/ Contrast 08/04/23 Immunizations Given and Recorded Vaccine Date Status [...] NEEDED, # 8.5 g, 7 Refill(s), Pharmacy: [facility], 178, cm, 05/03/23 10:32:00 EDT, Height/Length Dosing, 125.7, kg, 05/03/23 10:32:00 EDT, Weight Dosing Start Date: 07/10/23 Status: Ordered amitriptyline 75 mg oral tablet 75 mg = 1 tab, Oral, Daily, # 90 tab, 3 Refill(s), 07/30/24 3:51:00 PM CDT, Pharmacy: [facility], 177.8, cm, 07/30/23 7:34:00 EDT, Height/Length Dosing, 121.3, kg, 07/30/23 7:34:00 EDT, Weight Dosing Start Date: 07/30/23 Stop Date: 07/30/24 Status: Ordered Ativan 1 mg oral tablet 1 mg = 1 tab, Oral, Daily, PRN nausea/vomiting, Use as needed during cyclical vomiting episodes, 1 mg tab every 4 hrs PRN until resolved, # 30 tab, 0 Refill(s), Pharmacy: [facility], 178, cm, 05/03/23 10:32:00 EDT, Height/Length Dosing, 125.7, kg, 05/03/23 10:32:00 EDT, Weight Dosing Start Date: 07/21/23 Status: Ordered capsaicin 0.025% topical cream 1 barrera, Topical, TID, PRN other (see comment), APPLY TO THE AFFECTED AREA(S) NEEDED Start Date: 07/19/22 Status: Ordered EpiPen 2-Flip 0.3 mg injectable kit 0.3 mg =, IM, Once, # 1 EA, 0 Refill(s), Pharmacy: [facility], 177.8, cm, 06/01/22 17:05:00 EDT, Height/Length Dosing, 117.93, kg, 06/01/22 17:05:00 EDT, Weight Dosing Start Date: 06/04/22 Status: Ordered escitalopram 20 mg oral tablet 20 mg = 1 tab, Oral, every morning, # 30 tab, 2 Refill(s), Pharmacy: [facility], 178, cm,05/03/23 10:32:00 EDT, Height/Length Dosing, 125.7, kg, 05/03/23 10:32:00 EDT, Weight Dosing Start Date: 05/07/23 Stop Date: 08/05/23 Status: Ordered haloperidol 2 mg oral tablet 2 mg = 1 tab, Oral, QID, PRN nausea, # 45 tab, 1 Refill(s), 07/30/24 3:50:00 PM CDT, Pharmacy: [facility], 177.8, cm, 07/30/23 7:34:00 EDT, Height/Length Dosing, 121.3, kg, 07/30/23 7:34:00 EDT, Weight Dosing Start Date: 07/30/23 Stop Date: 07/30/24 Status: Ordered haloperidol 2 mg oral tablet 2 mg = 1 tab, Oral, every 6 hr, PRN nausea/vomiting, # 60 tab, 11 Refill(s), 08/01/24 7:57:00 AM CDT, Pharmacy: [facility], 177, cm, 08/01/23 8:37:00 EDT, Height/Length [...] beverages, # 30 cap, 2 Refill(s), Pharmacy: [facility], 178, cm, 10/30/22 13:49:00 EST, Height/Length Dosing, 126,kg, 10/30/22 13:49:00 EST, Weight Dosing Start Date: 11/21/22 Stop Date: 02/19/23 Status: Ordered lisinopril 10 mg oral tablet 1 tab, Oral, Daily, # 90 tab, 3 Refill(s), Pharmacy: [facility], 178, cm, 05/03/23 10:32:00 EDT, Height/Length Dosing, 125.7, kg, 05/03/23 10:32:00 EDT, Weight Dosing Start Date: 06/11/23 Status: Ordered melatonin 3 mg oral tablet 9 mg = 3 tab, Oral, every day at bedtime Start Date: 07/19/22 Status: Ordered metoprolol succinate 50 mg oral capsule, extended release 50 mg = 1 cap, Oral, Daily, # 90 cap, 3 Refill(s), Pharmacy: [facility], 178, cm, 08/13/22 8:42:00 EDT, Height/Length Dosing, 117.9, kg, 08/13/22 8:42:00 EDT, Weight Dosing Start Date: 09/03/22 Status: Ordered mirtazapine 30 mg oral tablet 30 mg = 1 tab, Oral, every night at bedtime, # 30 tab, 2 Refill(s), Pharmacy: [facility],177.8, cm, 04/20/23 7:11:00 EDT, Height/Length Dosing, 128.37, kg, 04/20/23 7:11:00 EDT, Weight Dosing Start Date: 04/30/23 Stop Date: 07/29/23 Status: Ordered omeprazole 40 mg oral delayed release capsule See Instructions, TAKE ONE CAPSULE BY MOUTH EVERY DAY, # 90 cap, 3 Refill(s), Pharmacy: [facility], 178, cm, 12/13/22 13:06:00 EST, Height/Length Dosing, 126, kg, 12/13/22 13:06:00 EST, Weight Dosing Start Date: 02/25/23 Status: Ordered ondansetron 4 mg oral tablet, disintegrating 4 mg = 1 tab, Oral, every 6 hr, PRN as needed for nausea/vomiting, X 10 days, # 15 tab, 0 Refill(s), 08/11/23 4:07:00 PM CDT, Pharmacy: [facility], 177, cm, 08/01/23 8:37:00 EDT, Height/Length Dosing, 129, kg, 08/01/23 8:37:00 EDT, Weight Dosing Start Date: 08/01/23 Stop Date: 08/11/23 Status: Ordered prochlorperazine 10 mg oral tablet 10 mg = 1 tab, Oral, QID, PRN nausea, # 20 tab, 0 Refill(s), Pharmacy: [facility], 177, cm, 08/01/23 8:37:00 EDT, Height/Length Dosing, 129, kg, 08/01/23 8:37:00 EDT, Weight Dosing Start Date: 08/01/23 Status: Ordered risperiDONE 1 mg oral tablet 1 mg = 1 tab, Oral, every night at bedtime, # 30 tab, 2 Refill(s), Pharmacy: [facility], 178, cm, 05/03/23 10:32:00 EDT, Height/Length Dosing, 125.7, kg, 05/03/23 10:32:00 EDT, Weight Dosing Start Date: 05/07/23 Stop Date: 08/05/23 Status: Ordered Symbicort 80 mcg-4.5 mcg/inh inhalation aerosol 2 puffs, Inhale, BID, # 10.2 g, 5 Refill(s), Pharmacy: [facility], 177.8, cm, 09/22/22 6:14:00 EST, Height/Length [...] Care team information Care Team Personnel Name: Kenai Devine MD Position: Physician Member Role: Informed Provider Address: Address: [address] Name: Veronique Rowan PARENT COACH Position: Physician Member Role: Nurse Practitioner Address: Address: [address] [place] [address] Name: Irma Monteiro PARENT COACH Position: Physician Member Role: Nurse Practitioner Address: Address: [address] [place] [address] Care Team Related Persons Name: SALO BARBOSA Address: Home Name: JANET BARBOSA Address: Home
--- OUTSIDE RECORDS SUMMARY | 2024-07-07 11:40 | XMS_ITS | Continuity of Care Document ---
Author Organization [facility] Address [address] [place] [address] Care Team Providers Care Word Processor Technician Name Role Phone Kenia Devine Primary Care Physician [phone] Encounter [facility] Date(s): 08/13/22 - 08/13/22 [facility] [address] [place] [address] Discharge Disposition: Home or Self Care Attending Physician: Kj Gallegos NP Admitting Physician: Kj Gallegos NP Referring Physician: Kj Gallegos BASKETBALL COACH Allergies, Adverse Reactions, Alerts Substance Reaction Severity [...] rectal suppository 25 mg = 1 supp, NC, every 4 hr, PRN as needed for nausea/vomiting, # 12 supp, 0 Refill(s), Pharmacy: [facility], 178, cm, 06/27/22 6:14:00 EDT, Height/Length Dosing, 118.85, kg, 06/27/22 6:14:00 EDT, Weight Dosing Start Date: 06/27/22 Status: Ordered !-Zofran ODT 4 mg oral tablet, disintegrating 4 mg = 1 tab, Oral, Once, PRN as needed for nausea/vomiting, # 20 tab, 0 Refill(s), Pharmacy: [facility], 178, cm, 08/13/22 8:42:00 EDT, Height/Length Dosing, 117.9, kg, 08/13/22 8:42:00 EDT, Weight Dosing Start Date: 08/13/22 Status: Ordered Albuterol (Eqv-ProAir HFA) 90 mcg/inh inhalation aerosol 180 mcg 2 puffs, Inhale, every 4 hr, PRN not specified, # 18 g, 0 Refill(s), Pharmacy: [facility], 177, cm, 06/07/22 17:11:00 EDT, Height/Length Dosing, 119, kg, 06/07/22 17:11:00 EDT, Weight Dosing Start Date: 06/16/22 Status: Ordered amitriptyline 25 mg oral tablet 25 mg = 1 tab, Oral, every night at bedtime, # 90 tab, 1 Refill(s), Pharmacy: [facility],177.8, cm, 07/08/22 7:12:00 EDT, Height/Length Dosing, 117.93, kg, 07/08/22 7:12:00 EDT, Weight Dosing Start Date: 07/16/22 Status: Ordered amLODIPine 10 mg oral tablet 10 mg = 1 tab, Oral, Daily Start Date: 05/01/22 Status: Ordered aprepitant 80 mg oral capsule 80 mg = 1 cap, Oral, every morning, # 30 cap, 0 Refill(s), Pharmacy: [facility], 177.8, cm, 07/08/22 7:12:00 EDT, Height/Length Dosing, 117.93, kg, 07/08/22 7:12:00 EDT, Weight Dosing Start Date: 07/10/22 Status: Ordered baclofen 10 mg oral tablet 10 mg = 1 tab, Oral, TID, PRN other (see comment), as needed, # 21 tab, 0 Refill(s), Pharmacy: [facility], 177.8, cm, 04/12/22 11:32:00 EDT, Height/Length Dosing, 117, kg, 04/12/22 11:32:00EDT, Weight Dosing Start Date: 05/26/22 Status: Ordered capsaicin 0.025% topical cream 1 barrera, Topical, TID, PRN other (see comment), APPLY TO THE AFFECTED AREA(S) NEEDED Start Date: 07/19/22 Status: Ordered Carafate 1 g oral tablet 1 g = 1 tab, Oral, BID, # 20 cap, 0 Refill(s), Pharmacy: [facility], 178, cm, 08/13/22 8:42:00 EDT, Height/Length [...] Once, # 1 EA, 0 Refill(s), Pharmacy: [facility], 177.8, cm, 06/01/22 17:05:00 EDT, Height/Length Dosing, 117.93, kg, 06/01/22 17:05:00 EDT, Weight Dosing Start Date: 06/04/22 Status: Ordered escitalopram 20 mg oral tablet 20 mg = 1 tab, Oral, every morning, # 30 tab, 2 Refill(s), Pharmacy: [facility], 178, cm,08/12/22 6:44:00 EDT, Height/Length Dosing, 117.9, kg, 08/12/22 6:44:00 EDT, Weight Dosing Start Date: 08/12/22 Stop Date: 11/10/22 Status: Ordered theodora oral capsule See Instructions, take 1 tablet on tongue at onset of nausea. Repeat every 6 hours as needed, # 20 tab, 0 Refill(s), Pharmacy: [facility], 178, cm, 08/13/22 8:42:00 EDT, Height/Length [...] Daily, # 90 cap, 0 Refill(s), Pharmacy: [facility], 177.8, cm, 06/01/22 17:05:00 EDT, Height/Length [...] bedtime, # 30 tab, 2 Refill(s), Pharmacy: [facility],178, cm, 08/12/22 6:44:00 EDT, Height/Length Dosing, [...] nausea, # 25 tab, 0 Refill(s), Pharmacy: [facility], 177.8, cm, 06/01/22 17:05:00 EDT, Height/Length Dosing, 117.93, kg, 06/01/22 17:05:00 EDT, Weight Dosing Start Date: 06/02/22 Status: Ordered prochlorperazine 10 mg oral tablet 10 mg = 1 tab, Oral, QID, # 28 tab, 0 Refill(s), Pharmacy: [facility], 178, cm, 08/11/22 6:40:00 EDT, Height/Length Dosing, 117.9, kg, 08/11/22 6:40:00 EDT, Weight Dosing Start Date: 08/11/22 Status: Ordered risperiDONE 1 mg oral tablet 1 mg = 1 tab, Oral, every night at bedtime, # 30 tab, 2 Refill(s), Pharmacy: [facility], 178, cm, 08/12/22 6:44:00 EDT, Height/Length [...] Personnel Name: Kenia Devine MD Address: Address: [place] [address]- [place]
--- OUTSIDE RECORDS SUMMARY | 2024-07-07 11:40 | XMS_ITS | Continuity of Care Document ---
Author Organization [facility] Address [address] [place] [address] Care Team Providers Care Litigator Name Role Phone Kenia Devine Primary Care Physician Encounter NCTY_FL Date(s): 10/30/22 - 10/30/22 [facility] [address] [place] [address] Encounter Diagnosis Cyclical vomiting(Discharge Diagnosis) - 10/30/22 Cyclical vomiting syndrome unrelated to migraine(Final) - Other termination clerk (current) drug therapy(Final) - Discharge Disposition: Home or Self Care Attending Physician: Georges Escalante MD Admitting Physician: Georges Escalante MD Allergies, Adverse Reactions, Alerts Substance Reaction [...] MRI MRCP w/o Contrast 09/16/22 Functional Status 10/30/22 Family Member Travel History No recent t [...] rectal suppository 25 mg = 1 supp, MI, every 4 hr, PRN as needed for nausea/vomiting, # 30 supp, 0 Refill(s), Pharmacy: [facility] #[id number], 178, cm, 09/04/22 7:09:00 EDT, Height/Length Dosing, 119, kg, 09/04/22 7:09:00 EDT, Weight Dosing Start Date: 09/16/22 Status: Ordered !-Zofran ODT 4 mg oral tablet, disintegrating 4 mg = 1 tab, Oral, every 8 hr, PRN as needed for nausea/vomiting, # 20 tab, 0 Refill(s), Pharmacy:[facility] #58, 178, cm, 08/13/22 8:42:00 EDT, Height/Length Dosing, 117.9, kg, 08/13/22 8:42:00 EDT, Weight Dosing Start Date: 08/14/22 Status: Ordered Albuterol (Eqv-ProAir HFA) 90 mcg/inh inhalation aerosol 180 mcg 2 puffs, Inhale, every 4 hr, PRN not specified, # 18 g, 0 Refill(s), Pharmacy: [facility] #58, 177, cm, 06/07/22 17:11:00 EDT, Height/Length Dosing, 119, kg, 06/07/22 17:11:00 EDT, Weight Dosing Start Date: 06/16/22 Status: Ordered amitriptyline 25 mg oral tablet 25 mg = 1 tab, Oral, every night at bedtime, # 90 tab, 1 Refill(s), Pharmacy: [facility] #58,177.8, cm, 07/08/22 7:12:00 EDT, Height/Length Dosing, 117.93, kg, 07/08/22 7:12:00 EDT, Weight Dosing Start Date: 07/16/22 Status: Ordered capsaicin 0.025% topical cream 1 barrera, Topical, TID, PRN other (see comment), APPLY TO THE AFFECTED AREA(S) NEEDED Start Date: 07/19/22 Status: Ordered Claritin 10 mg oral tablet 10 mg = 1 tab, Oral, Daily Start Date: 07/19/22 Status: Ordered EpiPen 2-Flip 0.3 mg injectable kit 0.3 mg =, IM, Once, # 1 EA, 0 Refill(s), Pharmacy: [facility] #58, 177.8, cm, 06/01/22 17:05:00 EDT, Height/Length Dosing, 117.93, kg, 06/01/22 17:05:00 EDT, Weight Dosing Start Date: 06/04/22 Status: Ordered escitalopram 20 mg oral tablet 20 mg = 1 tab, Oral, every morning, # 30 tab, 2 Refill(s), Pharmacy: [facility] #58, 178, cm,08/12/22 6:44:00 EDT, Height/Length Dosing, 117.9, kg, 08/12/22 6:44:00 EDT, Weight Dosing Start Date: 08/12/22 Stop Date: 11/10/22 Status: Ordered gabapentin 100 mg oral capsule 200 mg = 2 cap, Oral, TID, # 180 cap, 0 Refill(s), Pharmacy: [facility] #58, 177.8, cm, 09/22/22 6:14:00 EST, Height/Length Dosing, 123.83, kg, 09/22/22 6:14:00 EST, Weight Dosing Start Date: 10/06/22 Status: Ordered theodora oral capsule See Instructions, take 1 tablet on tongue at onset of nausea. Repeat every 6 hours as needed, # 20 tab, 0 Refill(s), Pharmacy: [facility] #58, 178, cm, 08/13/22 8:42:00 EDT, Height/Length [...] Daily, # 90 cap, 3 Refill(s), Pharmacy: [facility] #58, 178, cm, 08/13/22 8:42:00 EDT, Height/Length [...] bedtime, # 30 tab, 2 Refill(s), Pharmacy: [facility] #58,178, cm, 08/12/22 6:44:00 EDT, Height/Length Dosing, 117.9, kg, 08/12/22 6:44:00 EDT, Weight Dosing Start Date: 08/12/22 Stop Date: 11/10/22 Status: Ordered omeprazole 40 mg oral delayed release capsule 40 mg = 1 cap, Oral, Daily Start Date: 05/01/22 Status: Ordered risperiDONE 1 mg oral tablet 1 mg = 1 tab, Oral, every night at bedtime, # 30 tab, 2 Refill(s), Pharmacy: [facility] #58, 178, cm, 08/12/22 6:44:00 EDT, Height/Length Dosing, 117.9, kg, 08/12/22 6:44:00 EDT, Weight Dosing Start Date: 08/12/22 Stop Date: 11/10/22 Status: Ordered Symbicort 80 mcg-4.5 mcg/inh inhalation aerosol 2 puffs, Inhale, BID, # 10.2 g, 5 Refill(s), Pharmacy: [facility] #58, 177.8, cm, 09/22/22 6:14:00 EST, Height/Length Dosing, 123.83, kg, 09/22/22 6:14:00 EST, Weight Dosing Start Date: 10/10/22 Status: Ordered traMADol 50 mg oral tablet 25 mg = 0.5 tab, Oral, every 6 hr, PRN as needed for pain, # 8 tab, 0 Refill(s), Pharmacy: [facility] #58, 177.8, cm, 09/22/22 6:14:00 EST, Height/Length Dosing, 123.83, kg, 09/22/22 6:14:00 EST, Weight Dosing Start Date: 10/30/22 Stop Date: 11/04/22 Status: Ordered Problem List Condition Confirmation Course Effective Dates Status H ealth Status Informant Adult attention deficit hyperactivity disorder Confirmed 06/28/21 Active Allergic rhinitis Confirmed Active Cholelithiasis Confirmed Active Chest pain Confirmed Active Cyclical vomiting [...] Laboratory List Name Date Basic Metabolic Panel (BMP) 10/30/22 CBC w/ Diff 10/30/22 .Manual Differential (NCTY) 10/30/22 Most recent to oldest [Reference Range]: 1 WBC [5.0-10.0 x10^3/mcL] 11.0 x10^3/mcL *HI* (10/30/22 1:59 PM) RBC [4.6-6.0 x10^6/mcL] 5.0 x10^6/mcL (10/30/22 1:59 PM) Segs Man [40-75 %] 92 % *HI* (10/30/22 1:59 PM) Lymph Man [20-50 %] 3 % *LOW* (10/30/22 1:59 PM) [place] Man 2 % *NA* (10/30/22 1:59 PM) Eos Man 0 % *NA* (10/30/22 1:59 PM) BUN [7-18 mg/dL] 14 mg/dL (10/30/22 1:59 PM) Glucose Level [74-106 mg/dL] 213 mg/dL *HI* (10/30/22 1:59 PM) Lymph, Atyp Man 2 % *NA* (10/30/22 1:59 PM) Potassium Level [3.5-5.1 mmol/L] 3.8 mmo l/L (10/30/22 1:59 PM) MCV [80.0-96.0] 84.6 (10/30/22 1:59 PM) RBC Morph Normal (10/30/22 1:59 PM) MCHC [31.0-35.0 g/dL] 32.9 g/dL (10/30/22 1:59 PM) Sodium Level [136-145 mmol/L] 136 mmol/L (10/30/22 1:59 PM) Hct [41.0-51.0 %] 42.2 % (10/30/22 1:59 PM) Calcium Level [8.5-10.1 mg/dL] 8.7 mg/dL (10/30/22 1:59 PM) MCH [26.0-32.0 pg] 27.9 pg (10/30/22 1:59 PM) Hgb [14.0-18.0 g/dL] 13.9 g/dL *LOW* (10/30/22 1:59 PM) Band Man [0-5 %] 1 % (10/30/22 1:59 PM) Platelets [130-450 x10^3/mcL] 210 x10^3/ mcL (10/30/22 1:59 PM) CO2 [21-32 mmol/L] 22 mmol/L (10/30/22 1:59 PM) eGFR Non-AA [>=60] 56 *LOW* (10/30/22 1:59 PM) eGFR AA [>=60] 56 *LOW* (10/30/22 1:59 PM) Chloride Level [98-107 mmol/L] 101 mmol/ L (10/30/22 1:59 PM) RDW-CV [11.5-17.0 %] 13.5 % (10/30/22 1:59 PM) Abs Neut Man 10.2 x10^3/mcL *NA* (10/30/22 1:59 PM) Creatinine Level [0.70-1.30 mg/dL] 1.45 mg/dL *HI* (10/30/22 1:59 PM) Baso Man [0-1 %] 0 % (10/30/22 1:59 PM) Vital Signs Most recent to oldest [Reference Range]: 1 2 3 Temperature Temporal Artery [36-38 Deg C] 37.1 Deg C (10/30/22 1:44 PM) Peripheral Pulse Rate [60-100 bpm] 114 bpm *HI* (10/30/22 9:46 PM) 108 bpm *HI* (10/30/22 9:16 PM) 114 bpm *HI* (10/30/22 8:53 PM) Heart Rate Monitored [60-100 bpm] 115 bpm *HI* (10/30/22 9:46 PM) 111 bpm *HI* (10/30/22 9:16 PM) 117 bpm *HI* (10/30/22 8:53 PM) Respiratory Rate [12-24 br/min] 24 br/min (10/30/22 9:46 PM) 22 br/min (10/30/22 9:16 PM) 20 br/min (10/30/22 8:53 PM) Blood Pressure [90-140/60-90 mmHg] 166/103mmHg *HI* (10/30/22 9:46 PM) 174/107mmHg *HI* (10/30/22 9:18 PM) 172/98mmHg *HI* (10/30/22 8:28 PM) Weight Dosing 126.00 kg (10/30/22 1:49 PM) Weight Estimated 126.00 kg (10/30/22 1:44 PM) Height/Length Dosing 178.000 cm (10/30/22 1:49 PM) Height/Length Estimated 178.000 cm (10/30/22 1:44 PM) Social History Social History Type Response Smoking Status Never; Smoking tobac co use: Never tobacco user entered on: 06/16/22 Sex Male Hospital Discharge Instructions Patient Education 10/30/2022 20:41:19 Cyclic Vomiting Syndrome, Adult Cyclic Vomiting Syndrome, Adult Cyclic vomiting syndrome (CVS) is a condition that causes episodes of severe nausea and vomiting. It can last for hours or even days. Attacks may occur several times a month or several times a year. Between episodes of CVS, you may be otherwise healthy. What are the causes? The cause of this condition is not known. Although many of the episodes can happen for no obvious reason, you may have specific CVS triggers. Episodes may be triggered by: ??? An infection, especially colds and the flu. ??? Emotional stress, including excitement or anxiety about upcoming events, such as school, parties, or travel. ??? Certain foods or beverages, such as chocolate, cheese, alcohol, and food additives. ??? Motion sickness. ??? Eating a large meal before bed. ??? Being very tired. ??? Being too hot. What increases the risk? You are more likely to develop this condition if: ??? You get migraine headaches. ??? You have a family history of CVS or migraine headaches. What are the signs or symptoms? Symptoms tend to happen at the same time of day, and each episode tends to last about the same amount of time. Symptoms commonly start at night or when you wake up. Many people have warning signs (prodrome) before an episode, which may include slight nausea, sweating, and pale skin (pallor). The most common symptoms of a CVS attack include: ??? Severe vomiting. Vomiting may happen every 5???15 minutes. ??? Severe nausea. ??? Gagging (retching). Other symptoms may include: ??? Headache. ??? Dizziness. ??? Sensitivity to light. ??? Extreme thirst. ??? Abdominal pain. This can be severe. ??? Loose stools or diarrhea. ??? Fever. ??? Pale skin (pallor), especially on the face. ??? Weakness. ??? Exhaustion. ??? Sleepiness after a CVS episode. ??? Dehydration. This can cause: ??? Thirst. ??? Dry mouth. ??? Decreased urination. ??? Fatigue. How is this diagnosed? This condition may be diagnosed based on your symptoms, medical history, and family history of CVS or migraine. Your health care provider will ask whether you have had: ??? Episodes of severe nausea and vomiting that have happened a total of 5 or more times, or 3 or more times in the past 6 months. ??? Episodes that last for 1 hour or more, and occur 1 week apart or farther apart. ??? Episodes that are similar each time. ??? Normal health between episodes. Your health care provider will also do a physical exam. To rule out other conditions, you may have tests, such as: ??? Blood tests. ??? Urine tests. ??? Imaging tests. How is this treated? There is no cure for this condition, but treatment can help manage or prevent CVS episodes. Work with your health care provider to find the best treatment for you. Treatment may include: ??? Avoiding stress and CVS triggers. ??? Eating smaller, more frequent meals. ??? Taking medicines, such as: ??? Wfpa-hrp-tbfvlmf pain medicine. ??? Anti-nausea medicines. ??? Antacids. ??? Antihistamines. ??? Medicines for migraines. ??? Antidepressants. ??? Antibiotics. Severe nausea and vomiting may require you to stay at the hospital. You may need IV fluids to prevent or treat dehydration. Follow these instructions at home: During an episode ??? Take qgge-gja-vuhbflh and prescription medicines only as told by your health care provider. ??? Stay in bed and rest in a dark, quiet room. After an episode ??? Drink an oral rehydration solution (ORS), if directed by your health care provider. This is a drink that helps you replace fluids and the salts and minerals in your blood (electrolytes). It can be found at pharmacies and retail stores. ??? Drink small amounts of clear fluids slowly and gradually add more. ??? Drink clear fluids such as water or fruit juice that has water added (is diluted). You may alsoeat low-calorie popsicles. ??? Avoid drinking fluids that contain a lot of sugar or caffeine, such as sports drinks and soda. ??? Eat soft foods in small amounts every 3???4 hours. Eat your regular diet, but avoid spicy or fatty foods, such as nepalese fries and pizza. General instructions ??? Monitor your condition for any changes. ??? If you were prescribed an antibiotic medicine, take it as told by your health care provider. Donot stop taking the antibiotic even if you start to feel better. ??? Keep track of your attacks and symptoms, and pay attention to any triggers. Avoid those triggers when you can. ??? Keep all follow-up visits as told by your health care provider. This is important. Contact a health care provider if: ??? Your condition gets worse. ??? You cannot drink fluids without vomiting. ??? You have pain and trouble swallowing after an episode. Get help right away if: ??? You have blood in your vomit. ??? Your vomit looks like coffee grounds. ??? You have stools that are bloody or black, or stools that look like tar. ??? You have signs of dehydration, such as: ??? Sunken eyes. ??? Not making tears while crying. ??? Very dry mouth. ??? Cracked lips. ??? Decreased urine production. ??? Dark urine. Urine may be the color of tea. ??? Weakness. ??? Sleepiness. Summary ??? Cyclic vomiting syndrome (CVS) causes episodes of severe nausea and vomiting that can last for hours or even days. ??? Treatment can help you manage or prevent CVS episodes. Work with your health care provider to find the best treatment for you. ??? Vomiting and diarrhea can make you feel weak and can lead to dehydration. If you notice signs of dehydration, call your health care provider right away. ??? Keep all follow-up visits as told by your health care provider. This is important. This information is not intended to replace advice given to you by your health care provider. Make sure you discuss any questions you have with your health care provider. Document Revised: 01/22/2022 Document Reviewed: 10/03/2021 Elsevier Patient Education ?? 2021 [employer]. Follow Up Care 10/30/2022 13:44:29 With:Kenia Devine MD Address: [place], [place] [id number]- When:1 to 2 days only if needed Physician Emergency department Note * Jerad Benitez MD: PERFORM Event Display: ED Note Physician Authored Date: [id number] EUGENIA KNOWLES :1965 Age:57 years Sex:Male Visit Date:10/30/2022 Primary Care Physician: Kenia Devine MD Took over care of this patient from Dr. Osuna. ??He is still feeling a little nauseated and shaky but agrees that he has had all he available medicine. ??He is??happy to go home and see how it goes overnight. ??If he is still vomiting tomorrow he may return and at that point we could repeat medicines without??risking prolong his QT interval.?? He may return at any point??if his symptoms are not in control. Electronically Signed on 10/30/22 09:42 PM Jerad Benitez MD * Loli Mead MD: PERFORM Event Display: ED Note Physician Authored Date: [id number] EUGENIA KNOWLES :1965 Age:57 years Sex:Male Visit Date:10/30/2022 Primary Care Physician: Kenia Devine MD Basic Information Time Seen: Loli Mead MD / 10/30/2022 13:45 Chief Complaint Pt had gall bladder removed this am, arrives this afternoon with n/v. History Of Present Illness: Patient had his gallbladder removed??this morning laparoscopically??patient was discharged he states around 1 PM.?? Patient was said to have??dry heaves on arrival to PACU but that is not unusual??given the type of surgery PACU nurse??stated??patient received 4 mg of Zofran??prior to arrival to PACU??he then received 0.625 mg??droperidol??1 g??of IV Tylenol??and 25 mcg of fentanyl.?? Patient??is well-known to the emergency department for cyclical vomiting syndrome??usually Haldol and Ativan seem to work very well for him.?? Patient reports he got home and had some more dry heaves so decided to come to the emergency department. pt denies any abd pain Review of Systems: see hpi for ros Physical Exam Vitals & Measurements T:??37.1?C ??(Temporal Artery)?? HR:??112??(Peripheral)?? HR:??112??(Monitored)?? RR:??26?? BP:??172/98?? SpO2:??93%?? HT:??178.000??cm?? WT:??126.00??kg??(Estimated)?? O2 Therapy:??Room air?? General: Alert and oriented, well nourished,?No??acute distress Eye: PER?Normal??conjunctiva,??No??scleral icterus HENT: Normocephalic,??nontraumatic??Normal hearing Lungs: Clear to auscultation,?Non-labored?? respiration Heart:?Normal?? rate,?Regular??rhythm,?No??murmur,?No??gallop,?No??edema Chest: wall excursion wnl no abnormal movements no obvious deformities Abdomen: all incision sites appear well approximated with dermabond applied Musculoskeletal:?Normal?? range of motion and strength,?No??tenderness,?No??swelling Skin: Skin is warm, dry and pink,?No??rashes,?No??lesions Neurologic: Awake, alert and oriented X4 Psychiatric: Cooperative, appropriate mood and affect Medical Decision Making: For MDM please see under assessment and plan Procedure No Qualifying Data Assessment/Plan 1.??Cyclical vomiting??R11.15 With a history of cyclical vomiting patient had cholecystectomy earlier today??patient continues tohave dry heaves at home he had slight dry heaves??in the PACU??prior to discharge??patient had received??0.625 mg of Toradol 4 mg of Zofran 25 mcg of fentanyl and 1 g of IV Tylenol in PACU. ??Patient??here has initially received 2 mg of Ativan he received 2 L of IV fluids??due to patient receiving droperidol and??worry about QT prolongation patient did not receive Haldol until??much later this evening??patient has also been redosed with??Ativan.?? Patient is hopeful that he will feel better andbe able to go home. ??Patient will be continued to be monitored for a little while longer??until symptom improvement and he will hopefully be able to go home. Orders: Ativan, 1 mg = 0.5 mL, IV Push, Soln, Once, First Dose: 10/30/22 20:46:00 EST, Stop Date: 10/30/22 20:46:00 EST, Physician Stop, STAT Medication Reconciliation Unchanged albuterol (Albuterol (Eqv-ProAir HFA) 90 mcg/inh inhalation aerosol)2 Puffs Inhale (breathe in) every 4 hours as needed not specified. Refills: 0. ?? amitriptyline (amitriptyline 25 mg oral tablet)1 tab Oral (given by mouth) every night at bedtime. Refills: 1. ?? budesonide-formoterol (Symbicort 80 mcg-4.5 mcg/inh inhalation [...] 2. ?? gabapentin (gabapentin 100 mg oral capsule)2 Capsules Oral (given by mouth) 3 times [...] at bedtime for 30Days. Refills: 2. ?? traMADol (traMADol 50 mg oral tablet)0.5 tab Oral (given by mouth) every 6 hours as needed as needed for pain for 5 Days. Refills: 0. Problem List/Past Medical History Ongoing Adult attention deficit hyperactivity disorder Allergic rhinitis Chest pain Cholelithiasis Cyclical vomiting Depression, major, recurrent, mild Dysuria Gastroesophageal reflux disease Hypertensive disorder Insomnia Mild intermittent asthma Nausea & vomiting Nausea and vomiting Obesity Obstructive sleep apnea syndrome Peanut-induced anaphylaxis Pyloric stenosis Severe recurrent major depression without psychotic features Suicidal thoughts Tremor Unilateral inguinal hernia Historical Recurrent major depression in full remission Vomiting Procedure/Surgical History ???Colonoscopy (08/31/2020)???Upper gastrointestinal endoscopy, w/ dilation of gastric outlet for obstruction (06/10/2019)???EGD (05/12/2019)???Hydrocelectomy???Repair of right inguinal hernia Medication Administration Given !-Haldol, 5 mg, Slow IV Push !-Zofran, 4 mg, IV Push !-Zofran, 4 mg, IV Push 0.9% NaCl bolus, 1000 mL, IV Bolus 0.9% NaCl bolus, 1 L, IV Bolus Ativan, 2 mg, IV Push Ativan, 1 mg, IV Push Allergies PEANUT??(Anaphylaxis) EGG??(Vomiting) FISH CONTAINING PRODUCTS??(Vomiting) HOUSE DUST MITE MOLD TREE NUT??(Anaphylactic reaction) acetaminophen-hydrocodone??(Vomiting) hydroCHLOROthiazide metoclopramide??(Urticaria) Social History Alcohol Never Electronic Cigarette/Vaping Electronic Cigarette Use: Never. Employment/School Employed, Work/School description: [employer] Stack [employer]. Home/Environment Lives with Alone. Nutrition/Health Diet: Regular. Caffeine intake amount: couple glasses of soda daily. Psychosocial Substance Use Never Tobacco Never tobacco user Tobacco Use:. Never Smokeless Tobacco use:. Family History Arteriosclerotic heart disease: Father. Depressive disorder: Father. Lab Results CBC and Differential?? LATEST RESULTS?? HISTORICAL RESULTS?? WBC?? 10/30/22 13:59?? 11.0 ??High?? 09/22/22?? 6.7?? RBC?? 10/30/22 13:59?? 5.0?? 09/22/22?? 4.6?? Hgb?? 10/30/22 13:59?? 13.9 ??Low?? 09/22/22?? 13.2 ??Low?? Hct?? 10/30/22 13:59?? 42.2?? 09/22/22?? 38.0 ??Low?? MCV?? 10/30/22 13:59?? 84.6?? 09/22/22?? 81.9?? MCH?? 10/30/22 13:59?? 27.9?? 09/22/22?? 28.4?? MCHC?? 10/30/22 13:59?? 32.9?? 09/22/22?? 34.7?? RDW-CV?? 10/30/22 13:59?? 13.5?? 09/22/22?? 13.3?? Platelets?? 10/30/22 13:59?? 210?? 09/22/22?? 209?? Segs Man?? 10/30/22 13:59?? 92 ??High?? 09/19/22?? 85 ??High?? Lymph Man?? 10/30/22 13:59?? 3 ??Low?? 09/19/22?? 9 ??Low?? [place] Man?? 10/30/22 13:59?? 2?? 09/19/22?? 6?? Eos Man?? 10/30/22 13:59?? 0?? 09/19/22?? 0?? Baso Man?? 10/30/22 13:59?? 0?? 09/19/22?? 0?? Band Man?? 10/30/22 13:59?? 1?? 09/19/22?? 0?? Lymph, Atyp Man?? 10/30/22 13:59?? 2? Abs Neut Man?? 10/30/22 13:59?? 10.2?? 09/19/22?? 9.1?? RBC Morph?? 10/30/22 13:59?? Normal?? 09/19/22?? Abnormal? Routine Chemistry?? LATEST RESULTS?? HISTORICAL RESULTS?? Sodium Level?? 10/30/22 13:59?? 136?? 09/22/22?? 137?? Potassium Level?? 10/30/22 13:59?? 3.8?? 09/22/22?? 3.0 ??Low?? Chloride Level?? 10/30/22 13:59?? 101?? 09/22/22?? 100?? CO2?? 10/30/22 13:59?? 22?? 09/22/22?? 28?? BUN?? 10/30/22 13:59?? 14?? 09/22/22?? 15?? Glucose Level?? 10/30/22 13:59?? 213 ??High?? 09/22/22?? 197 ??High?? Creatinine Level?? 10/30/22 13:59?? 1.45 ??High?? 09/22/22?? 1.01?? eGFR AA?? 10/30/22 13:59?? 56 ??Low?? 09/22/22?? 86?? eGFR Non-AA?? 10/30/22 13:59?? 56 ??Low?? 09/22/22?? 86?? Calcium Level?? 10/30/22 13:59?? 8.7?? 09/22/22?? 8.5? Electronically Signed on 10/30/22 08:49 PM Loli Mead MD Emergency department Discharge instructions * Tyler [facility] MD: PERFORM Event Display: ED Discharge Information Authored Date: [id number] EUGENIA KNOWLES :1965 Age:57 years Sex:Male Visit Date:10/30/2022 Primary Care Physician: Kenia Devine MD Discharge Instructions We would like to thank you for allowing us to assist you with your healthcare needs. The following includes patient education materials and information regarding your injury/illness. Diagnosis from Today's Visit Cyclical vomiting Discharge Vitals Temperature??(Temporal Artery) 98.8 ??F (37.1 ??C) Heart Rate??(Peripheral) 108 Heart Rate??(Monitored) 111 Respiratory Rate?? 22 Blood Pressure?? 174/107?? Height?? 70.08 in (178.000 cm) Weight??(Estimated) 277.83 lb (126.00 kg) Allergies PEANUT??(Anaphylaxis) EGG??(Vomiting) FISH CONTAINING PRODUCTS??(Vomiting) HOUSE DUST MITE MOLD TREE NUT??(Anaphylactic reaction) acetaminophen-hydrocodone??(Vomiting) hydroCHLOROthiazide metoclopramide??(Urticaria) What to Do Next You Need to Schedule the Following Appointments Follow Up with??Kenia Devine MD When:??Within 1 to 2 days, only if needed Where: [place] [address]- Upcoming Scheduled Appointments Thursday 9:45 AM EST ?? Thursday 10:00 AM EST ?? Thursday 1:45 [...] by mouth) Every night at bedtime Unchanged budesonide-formoterol (Symbicort 80 mcg-4.5 mcg/ inh [...] Unchanged gabapentin (gabapentin 100 mg oral capsule) 2 Capsules Oral (given by mouth) 3 times [...] major, recurrent, mild Duration: 30 Days Unchanged traMADol (traMADol 50 mg oral tablet) 0.5 tab Oral (given by mouth) Every 6 hours as needed for as needed for pain Duration: 5 Days Education Materials Cyclic Vomiting Syndrome, Adult Cyclic vomiting syndrome (CVS) is a condition that causes episodes of severe nausea and vomiting. It can last for hours or even days. Attacks may occur several times a month or several times a year. Between episodes of CVS, you may be otherwise healthy. What are the causes? The cause of this condition is not known. Although many of the episodes can happen for no obvious reason, you may have specific CVS triggers. Episodes may be triggered by: ? An infection, especially colds and the flu. ? Emotional stress, including excitement or anxiety about upcoming events, such as school, parties, or travel. ? Certain foods or beverages, such as chocolate, cheese, alcohol, and food additives. ? Motion sickness. ? Eating a large meal before bed. ? Being very tired. ? Being too hot. What increases the risk? You are more likely to develop this condition if: ? You get migraine headaches. ? You have a family history of CVS or migraine headaches. What are the signs or symptoms? Symptoms tend to happen at the same time of day, and each episode tends to last about the same amount of time. Symptoms commonly start at night or when you wake up. Many people have warning signs (prodrome) before an episode, which may include slight nausea, sweating, and pale skin (pallor). The most common symptoms of a CVS attack include: ? Severe vomiting. Vomiting may happen every 5???15 minutes. ? Severe nausea. ? Gagging (retching). Other symptoms may include: ? Headache. ? Dizziness. ? Sensitivity to light. ? Extreme thirst. ? Abdominal pain. This can be severe. ? Loose stools or diarrhea. ? Fever. ? Pale skin (pallor), especially on the face. ? Weakness. ? Exhaustion. ? Sleepiness after a CVS episode. ? Dehydration. This can cause: ? Thirst. ? Dry mouth. ? Decreased urination. ? Fatigue. How is this diagnosed? This condition may be diagnosed based on your symptoms, medical history, and family history of CVS or migraine. Your health care provider will ask whether you have had: ? Episodes of severe nausea and vomiting that have happened a total of 5 or more times, or 3 or more times in the past 6 months. ? Episodes that last for 1 hour or more, and occur 1 week apart or farther apart. ? Episodes that are similar each time. ? Normal health between episodes. Your health care provider will also do a physical exam. To rule out other conditions, you may have tests, such as: ? Blood tests. ? Urine tests. ? Imaging tests. How is this treated? There is no cure for this condition, but treatment can help manage or prevent CVS episodes. Work with your health care provider to find the best treatment for you. Treatment may include: ? Avoiding stress and CVS triggers. ? Eating smaller, more frequent meals. ? Taking medicines, such as: ? Ahmb-fsf-wywwwpn pain medicine. ? Anti-nausea medicines. ? Antacids. ? Antihistamines. ? Medicines for migraines. ? Antidepressants. ? Antibiotics. Severe nausea and vomiting may require you to stay at the hospital. You may need IV fluids to prevent or treat dehydration. Follow these instructions at home: During an episode ? Take pmhu-gwk-sewulxz and prescription medicines only as told by your health care provider. ? Stay in bed and rest in a dark, quiet room. After an episode ? Drink an oral rehydration solution (ORS), if directed by your health care provider. This is a drinkthat helps you replace fluids and the salts and minerals in your blood (electrolytes). It can be found at pharmacies and retail stores. ? Drink small amounts of clear fluids slowly and gradually add more. ? Drink clear fluids such as water or fruit juice that has water added (is diluted). You may also eatlow-calorie popsicles. ? Avoid drinking fluids that contain a lot of sugar or caffeine, such as sports drinks and soda. ? Eat soft foods in small amounts every 3???4 hours. Eat your regular diet, but avoid spicy or fatty foods, such as nepalese fries and pizza. General instructions ? Monitor your condition for any changes. ? If you were prescribed an antibiotic medicine, take it as told by your health care provider. Do notstop taking the antibiotic even if you start to feel better. ? Keep track of your attacks and symptoms, and pay attention to any triggers. Avoid those triggers when you can. ? Keep all follow-up visits as told by your health care provider. This is important. Contact a health care provider if: ? Your condition gets worse. ? You cannot drink fluids without vomiting. ? You have pain and trouble swallowing after an episode. Get help right away if: ? You have blood in your vomit. ? Your vomit looks like coffee grounds. ? You have stools that are bloody or black, or stools that look like tar. ? You have signs of dehydration, such as: ? Sunken eyes. ? Not making tears while crying. ? Very dry mouth. ? Cracked lips. ? Decreased urine production. ? Dark urine. Urine may be the color of tea. ? Weakness. ? Sleepiness. Summary ? Cyclic vomiting syndrome (CVS) causes episodes of severe nausea and vomiting that can last for hours or even days. ? Treatment can help you manage or prevent CVS episodes. Work with your health care provider to find the best treatment for you. ? Vomiting and diarrhea can make you feel weak and can lead to dehydration. If you notice signs of dehydration, call your health care provider right away. ? Keep all follow-up visits as told by your health care provider. This is important. This information is not intended to replace advice given to you by your health care provider. Make sure you discuss any questions you have with your health care provider. Document Revised: 01/22/2022 Document Reviewed: 10/03/2021 [employer] Patient Education ?? 2021 [employer] Tests Performed Medications and Immunizations Administered Given !-Haldol, 5 mg, Slow IV Push !-Zofran, 4 mg, IV Push !-Zofran, 4 mg, IV Push 0.9% NaCl bolus, 1000 mL, IV Bolus 0.9% NaCl bolus, 1 L, IV Bolus Ativan, 2 mg, IV Push Ativan, 1 mg, IV Push Ativan, 1 mg, IV Push Lab Test Name Test Result Date/Time WBC 11.0 x10^3/mcL 10/30/2022 13:59 EST RBC 5.0 x10^6/mcL 10/30/2022 13:59 EST Hgb 13.9 g/dL 10/30/2022 13:59 EST Hct 42.2 % 10/30/2022 13:59 EST MCV 84.6 10/30/2022 13:59 EST MCH 27.9 pg 10/30/2022 13:59 EST MCHC 32.9 g/dL 10/30/2022 13:59 EST RDW-CV 13.5 % 10/30/2022 13:59 EST Platelets 210 x10^3/mcL 10/30/2022 13:59 EST Segs Man 92 % 10/30/2022 13:59 EST Lymph Man 3 % 10/30/2022 13:[address] Man 2 % 10/30/2022 13:59 EST Eos Man 0 % 10/30/2022 13:59 EST Baso Man 0 % 10/30/2022 13:59 EST Band Man 1 % 10/30/2022 13:59 EST Lymph, Atyp Man 2 % 10/30/2022 13:59 EST Abs Neut Man 10.2 x10^3/mcL 10/30/2022 13:59 EST RBC Morph Normal 10/30/2022 13:59 EST Sodium Level 136 mmol/L 10/30/2022 13:59 EST Potassium Level 3.8 mmol/L 10/30/2022 13:59 EST Chloride Level 101 mmol/L 10/30/2022 13:59 EST CO2 22 mmol/L 10/30/2022 13:59 EST BUN 14 mg/dL 10/30/2022 13:59 EST Glucose Level 213 mg/dL 10/30/2022 13:59 EST Creatinine Level 1.45 mg/dL 10/30/2022 13:59 EST eGFR AA 56 10/30/2022 13:59 EST eGFR Non-AA 56 10/30/2022 13:59 EST Calcium Level 8.7 mg/dL 10/30/2022 13:59 EST Patient/Lamps Tester And Inspector Signature Patient Name:EUGENIA KNOWLES I have received this information and my questions have been answered. Patient/Lamps Tester And Inspector Name: Patient/Lamps Tester And Inspector Signature: Relationship to Patient: Witness Name/Signature: Date: Electronically Signed on: 10/30/2022 21:41 ESTSigned by:PMN Patient Care team information Personnel Name: Kenia Devine MD Address: Address: [facility] [place] [address]- [place]
--- OUTSIDE RECORDS SUMMARY | 2024-07-07 11:40 | XMS_ITS | Continuity of Care Document ---
Author Organization [facility] Address [address] [place] [address] Care Team Providers Care Command And Control Officer Name Role Phone Kenia Devine Primary Care Physician Encounter [facility]_OR Date(s): 10/30/22 - 10/30/22 [facility] [address] [place] [address] Discharge Disposition: Home or Self Care Attending Physician: Tamir Pride MD Admitting Physician: Tamir Pride MD Referring Physician: Kenia Devine MD Allergies, [...] 2laryngeal spasm Assessment and Plan Future Appointments Diagnostic Tests Pending * Surgical Pathology [facility] 10/30/22 Future Scheduled Tests Radiology* MRI MRCP w/o Contrast 09/16/22 Functional Status 10/30/22 Anti-Embolism Device Activity: In place Anti-Embolism Site Condition: No complic ations 10/30/22 Family Member Travel History No recent [...] rectal suppository 25 mg = 1 supp, TX, every 4 hr, PRN as needed for nausea/vomiting, # 30 supp, 0 Refill(s), Pharmacy: [facility], 178, cm, 09/04/22 7:09:00 EDT, Height/Length Dosing, 119, kg, 09/04/22 7:09:00 EDT, Weight Dosing Start Date: 09/16/22 Status: Ordered !-Zofran ODT 4 mg oral tablet, disintegrating 4 mg = 1 tab, Oral, every 8 hr, PRN as needed for nausea/vomiting, # 20 tab, 0 Refill(s), Pharmacy:[facility], 178, cm, 08/13/22 8:42:00 EDT, Height/Length Dosing, 117.9, kg, 08/13/22 8:42:00 EDT, Weight Dosing Start Date: 08/14/22 Status: Ordered Albuterol (Eqv-ProAir HFA) 90 mcg/inh inhalation aerosol 180 mcg 2 puffs, Inhale, every 4 hr, PRN not specified, # 18 g, 0 Refill(s), Pharmacy: [facility] #58, 177, cm, 06/07/22 17:11:00 EDT, Height/Length Dosing, 119, kg, 06/07/22 17:11:00 EDT, Weight Dosing Start Date: 06/16/22 Status: Ordered amitriptyline 25 mg oral tablet 25 mg = 1 tab, Oral, every night at bedtime, # 90 tab, 1 Refill(s), Pharmacy: [facility]58,177.8, cm, 07/08/22 7:12:00 EDT, Height/Length Dosing, [...] Once, # 1 EA, 0 Refill(s), Pharmacy: [facility], 177.8, cm, 06/01/22 17:05:00 EDT, Height/Length Dosing, 117.93, kg, 06/01/22 17:05:00 EDT, Weight Dosing Start Date: 06/04/22 Status: Ordered escitalopram 20 mg oral tablet 20 mg = 1 tab, Oral, every morning, # 30 tab, 2 Refill(s), Pharmacy: [facility], 178, cm,08/12/22 6:44:00 EDT, Height/Length Dosing, 117.9, kg, 08/12/22 6:44:00 EDT, Weight Dosing Start Date: 08/12/22 Stop Date: 11/10/22 Status: Ordered gabapentin 100 mg oral capsule 200 mg = 2 cap, Oral, TID, # 180 cap, 0 Refill(s), Pharmacy: [facility]58, 177.8, cm, 09/22/22 6:14:00 EST, Height/Length Dosing, 123.83, kg, 09/22/22 6:14:00 EST, Weight Dosing Start Date: 10/06/22 Status: Ordered theodora oral capsule See Instructions, take 1 tablet on tongue at onset of nausea. Repeat every 6 hours as needed, # 20 tab, 0 Refill(s), Pharmacy: [facility], 178, cm, 08/13/22 8:42:00 EDT, Height/Length [...] Daily, # 90 cap, 3 Refill(s), Pharmacy: [facility], 178, cm, 08/13/22 8:42:00 EDT, Height/Length [...] bedtime, # 30 tab, 2 Refill(s), Pharmacy: [facility]58,178, cm, 08/12/22 6:44:00 EDT, Height/Length Dosing, 117.9, kg, 08/12/22 6:44:00 EDT, Weight Dosing Start Date: 08/12/22 Stop Date: 11/10/22 Status: Ordered omeprazole 40 mg oral delayed release capsule 40 mg = 1 cap, Oral, Daily Start Date: 05/01/22 Status: Ordered risperiDONE 1 mg oral tablet 1 mg = 1 tab, Oral, every night at bedtime, # 30 tab, 2 Refill(s), Pharmacy: [facility], 178, cm, 08/12/22 6:44:00 EDT, Height/Length Dosing, 117.9, kg, 08/12/22 6:44:00 EDT, Weight Dosing Start Date: 08/12/22 Stop Date: 11/10/22 Status: Ordered Symbicort 80 mcg-4.5 mcg/inh inhalation aerosol 2 puffs, Inhale, BID, # 10.2 g, 5 Refill(s), Pharmacy: [facility], 177.8, cm, 09/22/22 6:14:00 EST, Height/Length Dosing, 123.83, kg, 09/22/22 6:14:00 EST, Weight Dosing Start Date: 10/10/22 Status: Ordered traMADol 50 mg oral tablet 25 mg = 0.5 tab, Oral, every 6 hr, PRN as needed for pain, # 8 tab, 0 Refill(s), Pharmacy: [facility] #[facility], 177.8, cm, 09/22/22 6:14:00 EST, Height/Length [...] oldest [Reference Range]: 1 2 3 Temperature Oral [35.8-37.3 Deg C] 36.9 Deg C (10/30/22 7:11 AM) Temperature Temporal Artery [36-38 Deg C] 36.3 Deg C (10/30/22 11:49 AM) 36.1 Deg C (10/30/22 9:24 AM) Temperature Temporal Artery (DegF) [97.3-100 Deg F] 97.34 Deg F (10/30/22 11:49 AM) 96.98 Deg F *LOW* (10/30/22 9:24 AM) Peripheral Pulse Rate [60-100 bpm] 79 bpm (10/30/22 11:49 AM) 75 bpm (10/30/22 11:00 AM) 79 bpm (10/30/22 10:30 AM) Heart Rate Monitored [60-100 bpm] 79 bpm (10/30/22 11:49 AM) 77 bpm (10/30/22 11:00 AM) 79 bpm (10/30/22 10:30 AM) Respiratory Rate [12-24 br/min] 20 br/min (10/30/22 11:49 AM) 24 br/min (10/30/22 11:00 AM) 25 br/min *HI* (10/30/22 10:30 AM) Blood Pressure [90-140/60-90 mmHg] 142/92mmHg *HI* (10/30/22 11:49 AM) 149/88mmHg *HI* (10/30/22 11:00 AM) 156/92mmHg *HI* (10/30/22 10:30 AM) Mean Arterial Pressure, Cuff [65-140 mmHg] 109 mmHg (10/30/22 11:49 AM) 108 mmHg (10/30/22 11:00 AM) 113 mmHg (10/30/22 10:30 AM) Blood Pressure Location Right arm (10/30/22 7:11 AM) Blood Pressure Method Automatic (10/30/22 7:11 AM) Weight 126.3 kg (10/30/22 7:11 AM) Weight Estimated 123.83 kg (10/22/22 3:44 PM) Height 178 cm (10/30/22 7:11 AM) Social History Social History Type Response Smoking Status Never; Smoking tobac co use: Never tobacco user entered on: 06/16/22 Sex Male Hospital Discharge Instructions Patient Education 10/30/2022 08:22:35 MK Postop Discharge - lap leighton GLUE (NCMKELLEY) POST- OPERATIVE DISCHARGE INSTRUCTIONS Follow-up in the [facility] office in about 2-3 weeks. Please call [phone] to schedule/confirm appointment. Wound Care No Dressing required. You may shower. Skin glue will fall off naturally approximately 2 weeks. No tub baths or swimming for 14 days. Report to your physician any leakage of pus from the incision or increased redness or swelling around the incision. Activity Avoid lifting more than 10 lbs for 2 weeks. Diet Advance diet as tolerated. Limit high fat foods in the first 2 weeks. Pain Control/Medications Take over the counter pain medication for pain control (acetaminophen AND ibuprofen can be taken simultaneously). Take prescribed pain medication if needed for additional relief. Ice packs to incisions for 20 minutes every hour as needed. Miscellaneous Report any fever >101?? F. Report any problems with urination to your physician. For mild irritation at IV site: a. Apply warm, moist pack to area for 20 minutes four times a day for 2-3 days. b. Call doctor for persistent redness and/or drainage at IV site. In the event of any problems after surgery, do not hesitate to contact your doctor, [facility] , or the Emergency Room at [phone]. Discharge instructions * Salvatore Salmon RN: PERFORM Event Display: Discharge Instructions Authored Date: [id number] JOSUEWILLIE VANILIR Anglin :1965 Age:57 years Sex:Male Visit Date:10/30/2022 Primary Care Physician: Kenia Devine MD Hospital Discharge Instructions We would like to thank you for allowing us to assist you with your healthcare needs. The following includes patient education materials and information regarding your injury/illness. After you leave the hospital, you may get your health information including your test results, physician notes and discharge information by accessing your Patient Portal. Your Next Steps Discharge Orders Discharge Activity Restrictions, No Restrictions Discharge Diet Instruction, Regular home diet Discharge Patient Instructions, Take pain medication as prescribed and report to your physician pain which is not relieved by the pills. Discharge Patient Instructions, Report any fever >101?? F. Discharge Surgical Wound Instructions, No Dressing required. Patient may shower starting tomorrow. Scheduled Future Appointments Thursday 9:45 AM EST ?? With: Tamir Pride MD Where: [address] [place] [address] Status: Confirmed Thursday 10:00 AM EST ?? With: Irma Monteiro NP Where: [facility] [address] [place] [address] Status: Confirmed Thursday 1:45 PM EST ?? Thursday 3:20 PM EST ?? Where: [facility] [address] [place] [address] Status: Confirmed Your Summary Your Care Team Admitting Physician - Tamir Pride MD Attending Physician - Tamir Pride MD Primary Care Physician - Kenia Devine MD Referring Physician - Kenia Devine MD Problems Ongoing - Any problem that you are currently receiving treatment for. Adult attention deficit hyperactivity disorder Allergic rhinitis Chest pain Cholelithiasis Cyclical vomiting Depression, major, recurrent, mild Dysuria Gastroesophageal reflux disease Hypertensive disorder Insomnia Mild intermittent asthma Nausea & vomiting Nausea and vomiting Obesity Obstructive sleep apnea syndrome Peanut-induced anaphylaxis Pyloric stenosis Severe recurrent major depression without psychotic features Suicidal thoughts Tremor Unilateral inguinal hernia Historical - Any problem that you are no longer receiving treatment for. Recurrent major depression in full remission Vomiting Allergies PEANUT??(Anaphylaxis) EGG??(Vomiting) FISH CONTAINING PRODUCTS??(Vomiting) HOUSE DUST MITE MOLD TREE NUT??(Anaphylactic reaction) acetaminophen-hydrocodone??(Vomiting) hydroCHLOROthiazide metoclopramide??(Urticaria) Education Materials POST- OPERATIVE DISCHARGE INSTRUCTIONS [facility] about 2-3 weeks. Please call [phone] to schedule/confirm appointment. ? Wound Care No Dressing required. You may shower. Skin glue will fall off naturally approximately 2 weeks. No tub baths or swimming for 14 days. Report to your physician any leakage of pus from the incision or increased redness or swelling around the incision. ? Activity Avoid lifting more than 10 lbs for 2 weeks. Diet Advance diet as tolerated. Limit high fat foods in the first 2 weeks. ? Pain Control/Medications Take over the counter pain medication for pain control (acetaminophen AND ibuprofen can be taken simultaneously). Take prescribed pain medication if needed for additional relief. ? Ice packs to incisions for 20 minutes every hour as needed. ? Miscellaneous Report any fever >101?? F. Report any problems with urination to your physician. For mild irritation at IV site: a. Apply warm, moist pack to area for 20 minutes four times a day for 2-3 days. b. Call doctor for persistent redness and/or drainage at IV site. In the event of any problems after surgery, do not hesitate to contact your doctor, [facility] , or the Emergency Room at [phone]. Patient Name:EUGENIA KNOWLES I have received this information and my questions have been answered. Patient/Adult Probation Officer Name: Patient/Adult Probation Officer Signature: Relationship to Patient: Witness Name/Signature: Date: Electronically Signed on: 10/30/2022 11:58 ESTSigned by:TD History and physical note * Tamir Pride MD: PERFORM Event Display: History and Physical Authored Date: [id number] EUGENIA KNOWLES :1965 Age:57 years Sex:Male Visit Date:10/30/2022 Primary Care Physician: Kenia Devine MD H&P??reviewed from 10/15/22, pt examined,??no significant changes to medical history. Proceed as planned.? Tamir Pride MD 10/30/2022 ?? Electronically Signed on 10/30/22 07:58 AM Tamir Pride MD * Liyah Breaux: PERFORM Event Display: History and Physical Authored Date: [id number] JOSUECARLOTAWILLIEILRI Anglin :1965 Age:57 years Sex:Male Primary Care Physician: Kenia Devine MD Patient was seen in the office on 10/15/2022 Electronically Signed on 10/16/22 03:23 PM Liyah Breaux Patient Care team information Personnel Name: Kenia Devine MD Address: Address: [address]
--- OUTSIDE RECORDS SUMMARY | 2024-07-07 11:40 | XMS_ITS | Continuity of Care Document ---
Author Organization [facility] Address [address] [place] [address] Care Team Providers Care Artificial Teeth Inspector Name Role Phone Kenia Devine Primary Care Physician [phone] Encounter [facility] Date(s): 03/30/24 - 03/30/24 [facility] [address] [place] [address] Discharge Disposition: Home or Self Care Attending Physician: Makayla Mcginnis NP Admitting Physician: Makayla Mcginnis NP Referring Physician: Makayla Mcginnis [employer] Allergies, Adverse Reactions, Alerts Substance Reaction Severity [...] Tests Laboratory* Vitamin D, 25-OH Total [facility] 02/03/24 * Hemoglobin A1c 10/27/23 * Urinalysis Notify Lab 03/23/24 Immunizations Given and Recorded Vaccine Date Status Refusal Reason measles/mumps/rubella virus vaccine 02/11/24 Given tetanus/diphth/pertuss (Tdap) adult/adol 01/07/22 Recorded tetanus/diphth/pertuss (Tdap) adult/adol 05/05/12 Recorded SARS-CoV-2 (COVID-19) mRNA-1273 vaccine 12/30/21 R ecorded SARS-CoV-2 (COVID-19) mRNA-1273 vaccine 4/20/21 R ecorded SARS-CoV-2 (COVID-19) mRNA-1273 vaccine 02/05/21 [...] NEEDED, # 8.5 g, 7 Refill(s), Pharmacy: [facility], 178, cm, 05/03/23 10:32:00 EDT, Height/Length Dosing, 125.7, kg, 05/03/23 10:32:00 EDT, Weight Dosing Start Date: 07/10/23 Status: Ordered alfuzosin 10 mg oral tablet, extended release 10 mg = 1 tab, Oral, Daily, # 90 tab, 3 Refill(s), Pharmacy: [facility], 178.5, cm, 10/07/23 14:51:00 EST, Height, 116.95, kg, 11/04/23 14:29:00 EST, Weight Dosing Start Date: 11/25/23 Stop Date: 11/19/24 Status: Ordered amitriptyline 100 mg oral tablet 100 mg = 1 tab, Oral, every day at bedtime, # 90 tab, 2 Refill(s), Pharmacy: [facility], 178.5, cm, 10/07/23 14:51:00 EST, Height, 117.9, kg, 10/07/23 14:59:00 EST, Weight Dosing Start Date: 10/07/23 Status: Ordered Ativan 1 mg oral tablet 1 mg = 1 tab, Oral, Daily, PRN nausea/vomiting, Use as needed during cyclical vomiting episodes, 1 mg tab every 4 hrs PRN until resolved, # 30 tab, 0 Refill(s), Pharmacy: [facility], 178, cm, 05/03/23 10:32:00 EDT, Height/Length Dosing, 125.7, kg, 05/03/23 10:32:00 EDT, Weight Dosing Start Date: 07/21/23 Status: Ordered capsaicin 0.025% topical cream 1 barrera, Topical, TID, PRN other (see comment), APPLY TO THE AFFECTED AREA(S) NEEDED Start Date: 07/19/22 Status: Ordered cyclobenzaprine 10 mg oral tablet 10 mg = 1 tab, Oral, Daily, # 30 tab, 3 Refill(s), Pharmacy: [facility], 178, cm, 12/30/23 15:35:00 EST, Height, 120, kg, 03/23/24 10:29:00 EDT, Weight Dosing Start Date: 03/23/24 Status: Ordered EPINEPHrine 0.3 mg injectable kit See Instructions, INJECT INTRAMUSCULARLY ONCE, # 2 mL, 0 Refill(s), Pharmacy: [facility],178, cm, 12/30/23 15:35:00 EST, Height, 155.62, kg, 12/30/23 15:38:00 EST, Weight Dosing Start Date: 01/13/24 Status: Ordered escitalopram 20 mg oral tablet 20 mg = 1 tab, Oral, every morning, # 30 tab, 3 Refill(s), Pharmacy: [facility], 178, cm,12/30/23 15:35:00 EST, Height, 121, kg, 03/30/24 8:26:00 EDT, Weight Dosing Start Date: 03/30/24 Stop Date: 07/28/24 Status: Ordered haloperidol 2 mg oral tablet 2 mg = 1 tab, Oral, every 6 hr, PRN nausea/vomiting, # 60 tab, 11 Refill(s), 08/01/24 7:57:00 AM CDT, Pharmacy: [facility], 177, cm, 08/01/23 8:37:00 EDT, Height/Length Dosing, 129, kg, 08/01/23 8:37:00 EDT, Weight Dosing Start Date: 08/01/23 Stop Date: 08/01/24 Status: Ordered ibuprofen 800 mg oral tablet 800 mg = 1 tab, Oral, every 8 hr, PRN other (see comment), as needed Start Date: 05/01/22 Status: Ordered lisinopril 10 mg oral tablet 1 tab, Oral, Daily, # 90 tab, 3 Refill(s), Pharmacy: [facility], 178, cm, 05/03/23 10:32:00 EDT, Height/Length Dosing, 125.7, kg, 05/03/23 10:32:00 EDT, Weight Dosing Start Date: 06/11/23 Status: Ordered melatonin 3 mg oral tablet 9 mg = 3 tab, Oral, every day at bedtime Start Date: 07/19/22 Status: Ordered metFORMIN 500 mg oral tablet 1 tab, Oral, BID w/Meals, # 90 tab, 1 Refill(s), Pharmacy: [facility], 178, cm, 12/30/23 15:35:00 EST, Height, 116.75, kg, 02/03/24 12:42:00 EDT, Weight Dosing Start Date: 02/09/24 Status: Ordered Metoprolol Succinate ER 50 mg oral tablet, extended release 1 tab, Oral, Daily, # 90 tab, 3 Refill(s), Pharmacy: [facility], 177, cm, 08/01/23 8:37:00 EDT, Height/Length Dosing, 129, kg, 08/01/23 8:37:00 EDT, Weight Dosing Start Date: 08/23/23 Status: Ordered mirtazapine 30 mg oral tablet 30 mg = 1 tab, Oral, every night at bedtime, # 30 tab, 3 Refill(s), Pharmacy: [facility],178, cm, 12/30/23 15:35:00 EST, Height, 121, kg, 03/30/24 8:26:00 EDT, Weight Dosing Start Date: 03/30/24 Stop Date: 07/28/24 Status: Ordered omeprazole 40 mg oral delayed release capsule 1 cap, Oral, Daily, # 90 cap, 3 Refill(s), Pharmacy: [facility], 178, cm, 12/30/23 15:35:00 EST, Height, 116.75, kg, 02/03/24 12:42:00 EDT, Weight Dosing Start Date: 02/16/24 Status: Ordered prochlorperazine 10 mg oral tablet 10 mg = 1 tab, Oral, QID, PRN nausea, # 20 tab, 0 Refill(s), Pharmacy: [facility], 177, cm, 08/01/23 8:37:00 EDT, Height/Length Dosing, 129, kg, 08/01/23 8:37:00 EDT, Weight Dosing Start Date: 08/01/23 Status: Ordered risperiDONE 1 mg oral tablet 1.5 mg = 1.5 tab, Oral, every night at bedtime, # 45 tab, 3 Refill(s), Pharmacy: [facility], 178, cm, 12/30/23 15:35:00 EST, Height, 121, kg, 03/30/24 8:26:00 EDT, Weight Dosing Start Date: 03/30/24 Stop Date: 07/28/24 Status: Ordered Symbicort 80 mcg-4.5 mcg/inh inhalation aerosol 2 puffs, Inhale, BID, # 10.2 g, 5 Refill(s), Pharmacy: [facility], 177.8, cm, 09/22/22 6:14:00 EST, Height/Length Dosing, 123.83, kg, 09/22/22 6:14:00 EST, Weight Dosing Start Date: 10/10/22 Status: Ordered Problem List Condition Confirmation Course Effective Dates Status H ealt Status Informant Adult attention deficit hyperactivity disorder [...] Physician Member Role: Informed Provider Address: Address: [address] [place] [address] Name: Veronique Rowan [employer] Position: No Access Member Role: Nurse Practitioner Address: Address: [address] [facility] [address] Name: Irma Monteiro [employer] Position: Physician Member Role: Nurse Practitioner Address: Address: [address] [facility] [address] Care Team Related Persons Name: SALO BARBOSA Name: JANET BARBOSA
--- OUTSIDE RECORDS SUMMARY | 2024-07-07 11:40 | XMS_ITS | Continuity of Care Document ---
Author Organization [facility] Address [address] [place] [address] Care Team Providers Care Social Media Manager Name Role Phone Kenia Devine Primary Care Physician Encounter [facility] Date(s): 09/09/22 - 09/09/22 [facility] [address] [place] [address] Discharge Disposition: Home or Self Care Attending Physician: Georges Escalante MD Admitting Physician: Georges Escalante MD Referring Physician: Georges Escalante MD Allergies, Adverse Reactions, [...] rectal suppository 25 mg = 1 supp, [place], every 4 hr, PRN as needed for nausea/vomiting, # 12 supp, 0 Refill(s), Pharmacy: [facility] #[facility], 178, cm, 06/27/22 6:14:00 EDT, Height/Length Dosing, 118.85, kg, 06/27/22 6:14:00 EDT, Weight Dosing Start Date: 06/27/22 Status: Ordered !-Zofran ODT 4 mg oral tablet, disintegrating 4 mg = 1 tab, Oral, every 8 hr, PRN as needed for nausea/vomiting, # 20 tab, 0 Refill(s), Pharmacy:[facility] #58, 178, cm, 08/13/22 8:42:00 EDT, Height/Length Dosing, 117.9, kg, 08/13/22 8:42:00 EDT, Weight Dosing Start Date: 08/14/22 Status: Ordered Albuterol (Eqv-ProAir HFA) 90 mcg/inh inhalation aerosol 180 mcg 2 puffs, Inhale, every 4 hr, PRN not specified, # 18 g, 0 Refill(s), Pharmacy: [facility], 177, cm, 06/07/22 17:11:00 EDT, Height/Length Dosing, 119, kg, 06/07/22 17:11:00 EDT, Weight Dosing Start Date: 06/16/22 Status: Ordered amitriptyline 25 mg oral tablet 25 mg = 1 tab, Oral, every night at bedtime, # 90 tab, 1 Refill(s), Pharmacy: [facility] #58,177.8, cm, 07/08/22 7:12:00 EDT, Height/Length Dosing, 117.93, kg, 07/08/22 7:12:00 EDT, Weight Dosing Start Date: 07/16/22 Status: Ordered amLODIPine 10 mg oral tablet 10 mg = 1 tab, Oral, Daily Start Date: 05/01/22 Status: Ordered aprepitant 80 mg oral capsule 80 mg = 1 cap, Oral, every morning, # 30 cap, 0 Refill(s), Pharmacy: [facility] #58, 177.8, cm, 07/08/22 7:12:00 EDT, Height/Length Dosing, 117.93, kg, 07/08/22 7:12:00 EDT, Weight Dosing Start Date: 07/10/22 Status: Ordered baclofen 10 mg oral tablet 10 mg = 1 tab, Oral, TID, PRN other (see comment), as needed, # 21 tab, 0 Refill(s), Pharmacy: [facility] #58, 177.8, cm, 04/12/22 11:32:00 EDT, Height/Length Dosing, 117, kg, 04/12/22 11:32:00EDT, Weight Dosing Start Date: 05/26/22 Status: Ordered capsaicin 0.025% topical cream 1 barrera, Topical, TID, PRN other (see comment), APPLY TO THE AFFECTED AREA(S) NEEDED Start Date: 07/19/22 Status: Ordered Carafate 1 g oral tablet 1 g = 1 tab, Oral, BID, # 20 cap, 0 Refill(s), Pharmacy: [facility] #58, 178, cm, 08/13/22 8:42:00 EDT, Height/Length [...] Once, # 1 EA, 0 Refill(s), Pharmacy: [facility] #58, 177.8, cm, 06/01/22 17:05:00 EDT, Height/Length Dosing, 117.93, kg, 06/01/22 17:05:00 EDT, Weight Dosing Start Date: 06/04/22 Status: Ordered escitalopram 20 mg oral tablet 20 mg = 1 tab, Oral, every morning, # 30 tab, 2 Refill(s), Pharmacy: [facility] #58, 178, cm,08/12/22 6:44:00 EDT, Height/Length Dosing, 117.9, kg, 08/12/22 6:44:00 EDT, Weight Dosing Start Date: 08/12/22 Stop Date: 11/10/22 Status: Ordered theodora oral capsule See Instructions, take 1 tablet on tongue at onset of nausea. Repeat every 6 hours as needed, # 20 tab, 0 Refill(s), Pharmacy: [facility] #58, 178, cm, 08/13/22 8:42:00 EDT, Height/Length [...] Daily, # 90 cap, 3 Refill(s), Pharmacy: [facility] #58, 178, cm, 08/13/22 8:42:00 EDT, Height/Length [...] bedtime, # 30 tab, 2 Refill(s), Pharmacy: [facility] #58,178, cm, 08/12/22 6:44:00 EDT, Height/Length Dosing, [...] nausea, # 25 tab, 0 Refill(s), Pharmacy: [facility] #58, 177.8, cm, 06/01/22 17:05:00 EDT, Height/Length Dosing, 117.93, kg, 06/01/22 17:05:00 EDT, Weight Dosing Start Date: 06/02/22 Status: Ordered prochlorperazine 10 mg oral tablet 10 mg = 1 tab, Oral, QID, # 28 tab, 0 Refill(s), Pharmacy: [facility] #58, 178, cm, 08/11/22 6:40:00 EDT, Height/Length Dosing, 117.9, kg, 08/11/22 6:40:00 EDT, Weight Dosing Start Date: 08/11/22 Status: Ordered risperiDONE 1 mg oral tablet 1 mg = 1 tab, Oral, every night at bedtime, # 30 tab, 2 Refill(s), Pharmacy: [facility] #58, 178, cm, 08/12/22 6:44:00 EDT, Height/Length [...] Confirmed Active Nausea and vomiting Confirmed Active Obesity Confirmed Active Obstructive [...] Personnel Name: Kenia Devine MD Address: Address: [place], [place] [address]
--- OUTSIDE RECORDS SUMMARY | 2024-07-07 11:40 | XMS_ITS | Continuity of Care Document ---
Author Organization [facility] Address [address] [place] [address] Care Team Providers Care Curb Machine Operator Name Role Phone Kenia Devine Primary Care Physician Encounter [facility] Date(s): 02/29/24 - 02/29/24 [facility] [address] [place] [address] Discharge Disposition: Home Allergies, Adverse Reactions, Alerts [...] Total [facility] 02/03/24 * Hemoglobin A1c 10/27/23 Radiology* CT Chest w/ Contrast 02/29/24 Immunizations Given and Recorded Vaccine Date Status [...] NEEDED, # 8.5 g, 7 Refill(s), Pharmacy: [facility] #58, 178, cm, 05/03/23 10:32:00 EDT, Height/Length Dosing, 125.7, kg, 05/03/23 10:32:00 EDT, Weight Dosing Start Date: 07/10/23 Status: Ordered alfuzosin 10 mg oral tablet, extended release 10 mg = 1 tab, Oral, Daily, # 90 tab, 3 Refill(s), Pharmacy: [facility] #58, 178.5, cm, 10/07/23 14:51:00 EST, Height, 116.95, kg, 11/04/23 14:29:00 EST, Weight Dosing Start Date: 11/25/23 Stop Date: 11/19/24 Status: Ordered amitriptyline 100 mg oral tablet 100 mg = 1 tab, Oral, every day at bedtime, # 90 tab, 2 Refill(s), Pharmacy: [facility] #58, 178.5, cm, 10/07/23 14:51:00 EST, Height, 117.9, kg, 10/07/23 14:59:00 EST, Weight Dosing Start Date: 10/07/23 Status: Ordered Ativan 1 mg oral tablet 1 mg = 1 tab, Oral, Daily, PRN nausea/vomiting, Use as needed during cyclical vomiting episodes, 1 mg tab every 4 hrs PRN until resolved, # 30 tab, 0 Refill(s), Pharmacy: [facility] #58, 178, cm, 05/03/23 10:32:00 EDT, Height/Length Dosing, 125.7, kg, 05/03/23 10:32:00 EDT, Weight Dosing Start Date: 07/21/23 Status: Ordered capsaicin 0.025% topical cream 1 barrera, Topical, TID, PRN other (see comment), APPLY TO THE AFFECTED AREA(S) NEEDED Start Date: 07/19/22 Status: Ordered EPINEPHrine 0.3 mg injectable kit See Instructions, INJECT INTRAMUSCULARLY ONCE, # 2 mL, 0 Refill(s), Pharmacy: [facility] #58,178, cm, 12/30/23 15:35:00 EST, Height, 155.62, kg, 12/30/23 15:38:00 EST, Weight Dosing Start Date: 01/13/24 Status: Ordered escitalopram 20 mg oral tablet 20 mg = 1 tab, Oral, every morning, # 30 tab, 3 Refill(s), Pharmacy: [facility] #58, 178, cm,12/30/23 15:35:00 EST, Height, 115.75, kg, 01/27/24 8:32:00 EDT, Weight Dosing Start Date: 01/27/24 Stop Date: 05/26/24 Status: Ordered haloperidol 2 mg oral tablet 2 mg = 1 tab, Oral, every 6 hr, PRN nausea/vomiting, # 60 tab, 11 Refill(s), 08/01/24 7:57:00 AM CDT, Pharmacy: [facility] #58, 177, cm, 08/01/23 8:37:00 EDT, Height/Length Dosing, 129, kg, 08/01/23 8:37:00 EDT, Weight Dosing Start Date: 08/01/23 Stop Date: 08/01/24 Status: Ordered ibuprofen 800 mg oral tablet 800 mg = 1 tab, Oral, every 8 hr, PRN other (see comment), as needed Start Date: 05/01/22 Status: Ordered lisinopril 10 mg oral tablet 1 tab, Oral, Daily, # 90 tab, 3 Refill(s), Pharmacy: [facility] #58, 178, cm, 05/03/23 10:32:00 EDT, Height/Length Dosing, 125.7, kg, 05/03/23 10:32:00 EDT, Weight Dosing Start Date: 06/11/23 Status: Ordered melatonin 3 mg oral tablet 9 mg = 3 tab, Oral, every day at bedtime Start Date: 07/19/22 Status: Ordered metFORMIN 500 mg oral tablet 1 tab, Oral, BID w/Meals, # 90 tab, 1 Refill(s), Pharmacy: [facility] #58, 178, cm, 12/30/23 15:35:00 EST, Height, 116.75, kg, 02/03/24 12:42:00 EDT, Weight Dosing Start Date: 02/09/24 Status: Ordered Metoprolol Succinate ER 50 mg oral tablet, extended release 1 tab, Oral, Daily, # 90 tab, 3 Refill(s), Pharmacy: [facility] #58, 177, cm, 08/01/23 8:37:00 EDT, Height/Length Dosing, 129, kg, 08/01/23 8:37:00 EDT, Weight Dosing Start Date: 08/23/23 Status: Ordered mirtazapine 30 mg oral tablet 30 mg = 1 tab, Oral, every night at bedtime, # 30 tab, 3 Refill(s), Pharmacy: [facility] #58,178, cm, 12/30/23 15:35:00 EST, Height, 115.75, kg, 01/27/24 8:32:00 EDT, Weight Dosing Start Date: 01/27/24 Stop Date: 05/26/24 Status: Ordered omeprazole 40 mg oral delayed release capsule 1 cap, Oral, Daily, # 90 cap, 3 Refill(s), Pharmacy: [facility] #58, 178, cm, 12/30/23 15:35:00 EST, Height, 116.75, kg, 02/03/24 12:42:00 EDT, Weight Dosing Start Date: 02/16/24 Status: Ordered prochlorperazine 10 mg oral tablet 10 mg = 1 tab, Oral, QID, PRN nausea, # 20 tab, 0 Refill(s), Pharmacy: [facility] #58, 177, cm, 08/01/23 8:37:00 EDT, Height/Length Dosing, 129, kg, 08/01/23 8:37:00 EDT, Weight Dosing Start Date: 08/01/23 Status: Ordered risperiDONE 1 mg oral tablet 1.5 mg = 1.5 tab, Oral, every night at bedtime, # 45 tab, 3 Refill(s), Pharmacy: [facility] #58, 178, cm, 12/30/23 15:35:00 EST, Height, 115.75, kg, 01/27/24 8:32:00 EDT, Weight Dosing Start Date: 01/27/24 Stop Date: 05/26/24 Status: Ordered Symbicort 80 mcg-4.5 mcg/inh inhalation aerosol 2 puffs, Inhale, BID, # 10.2 g, 5 Refill(s), Pharmacy: [facility] #58, 177.8, cm, 09/22/22 6:14:00 EST, Height/Length [...] Physician Member Role: Informed Provider Address: Address: [address] [place] [address] Name: Veronique Rowan PLAN CHECKER Position: No Access Member Role: Nurse Practitioner Address: Address: [address] [facility] [address] Name: Irma Monteiro PLAN CHECKER Position: Physician Member Role: Nurse Practitioner Address: Address: [address] [facility] [address] Care Team Related Persons Name: SALO BARBOSA Name: JANET BARBOSA
--- OUTSIDE RECORDS SUMMARY | 2024-07-07 11:40 | XMS_ITS | Continuity of Care Document ---
Author Organization [facility] Address [address] [place] [address] Care Team Providers Care Landscape Gardener Name Role Phone Kenia Devine Primary Care Physician [phone] Encounter [facility] Date(s): 04/28/24 - 04/28/24 [facility] [address] [place] [address] Discharge Disposition: Home or Self Care Attending Physician: Chace Enriquez MD Admitting Physician: Chace Enriquez MD Referring Physician: Chace Enriquez MD Allergies, Adverse Reactions, Alerts Substance Reaction [...] NEEDED, # 8.5 g, 7 Refill(s), Pharmacy: [facility] #58, 178, cm, 05/03/23 10:32:00 EDT, Height/Length Dosing, 125.7, kg, 05/03/23 10:32:00 EDT, Weight Dosing Start Date: 07/10/23 Status: Ordered alfuzosin 10 mg oral tablet, extended release 10 mg = 1 tab, Oral, Daily, # 90 tab, 3 Refill(s), Pharmacy: [facility] #58, 178.5, cm, 10/07/23 14:51:00 EST, Height, 116.95, kg, 11/04/23 14:29:00 EST, Weight Dosing Start Date: 11/25/23 Stop Date: 11/19/24 Status: Ordered amitriptyline 100 mg oral tablet 100 mg = 1 tab, Oral, every day at bedtime, # 90 tab, 2 Refill(s), Pharmacy: [facility] #58, 178.5, cm, 10/07/23 14:51:00 EST, Height, 117.9, kg, 10/07/23 14:59:00 EST, Weight Dosing Start Date: 10/07/23 Status: Ordered Ativan 1 mg oral tablet 1 mg = 1 tab, Oral, Daily, PRN nausea/vomiting, Use as needed during cyclical vomiting episodes, 1 mg tab every 4 hrs PRN until resolved, # 30 tab, 0 Refill(s), Pharmacy: [facility] #58, 178, cm, 05/03/23 10:32:00 EDT, Height/Length Dosing, 125.7, kg, 05/03/23 10:32:00 EDT, Weight Dosing Start Date: 07/21/23 Status: Ordered capsaicin 0.025% topical cream 1 barrera, Topical, TID, PRN other (see comment), APPLY TO THE AFFECTED AREA(S) NEEDED Start Date: 07/19/22 Status: Ordered cyclobenzaprine 10 mg oral tablet 10 mg = 1 tab, Oral, Daily, # 30 tab, 3 Refill(s), Pharmacy: [facility] #58, 178, cm, 12/30/23 15:35:00 EST, Height, 120, kg, 03/23/24 10:29:00 EDT, Weight Dosing Start Date: 03/23/24 Status: Ordered EPINEPHrine 0.3 mg injectable kit See Instructions, INJECT INTRAMUSCULARLY ONCE, # 2 mL, 0 Refill(s), Pharmacy: [facility] #58,178, cm, 12/30/23 15:35:00 EST, Height, 155.62, kg, 12/30/23 15:38:00 EST, Weight Dosing Start Date: 01/13/24 Status: Ordered escitalopram 20 mg oral tablet 20 mg = 1 tab, Oral, every morning, # 30 tab, 3 Refill(s), Pharmacy: [facility] #58, 178, cm,12/30/23 15:35:00 EST, Height, 121, kg, 03/30/24 8:26:00 EDT, Weight Dosing Start Date: 03/30/24 Stop Date: 07/28/24 Status: Ordered haloperidol 2 mg oral tablet 2 mg = 1 tab, Oral, every 6 hr, PRN nausea/vomiting, # 60 tab, 11 Refill(s), 08/01/24 7:57:00 AM CDT, Pharmacy: [facility] #58, 177, cm, 08/01/23 8:37:00 EDT, Height/Length Dosing, 129, kg, 08/01/23 8:37:00 EDT, Weight Dosing Start Date: 08/01/23 Stop Date: 08/01/24 Status: Ordered ibuprofen 800 mg oral tablet 800 mg = 1 tab, Oral, every 8 hr, PRN other (see comment), as needed Start Date: 05/01/22 Status: Ordered lisinopril 10 mg oral tablet 1 tab, Oral, Daily, # 90 tab, 3 Refill(s), Pharmacy: [facility] #58, 178, cm, 05/03/23 10:32:00 EDT, Height/Length Dosing, 125.7, kg, 05/03/23 10:32:00 EDT, Weight Dosing Start Date: 06/11/23 Status: Ordered melatonin 3 mg oral tablet 9 mg = 3 tab, Oral, every day at bedtime Start Date: 07/19/22 Status: Ordered metFORMIN 500 mg oral tablet 1 tab, Oral, BID w/Meals, # 90 tab, 1 Refill(s), Pharmacy: [facility] #58, 178, cm, 12/30/23 15:35:00 EST, Height, 116.75, kg, 02/03/24 12:42:00 EDT, Weight Dosing Start Date: 02/09/24 Status: Ordered Metoprolol Succinate ER 50 mg oral tablet, extended release 1 tab, Oral, Daily, # 90 tab, 3 Refill(s), Pharmacy: [facility] #58, 177, cm, 08/01/23 8:37:00 EDT, Height/Length Dosing, 129, kg, 08/01/23 8:37:00 EDT, Weight Dosing Start Date: 08/23/23 Status: Ordered mirtazapine 30 mg oral tablet 30 mg = 1 tab, Oral, every night at bedtime, # 30 tab, 3 Refill(s), Pharmacy: [facility] #58,178, cm, 12/30/23 15:35:00 EST, Height, 121, kg, 03/30/24 8:26:00 EDT, Weight Dosing Start Date: 03/30/24 Stop Date: 07/28/24 Status: Ordered omeprazole 40 mg oral delayed release capsule 1 cap, Oral, Daily, # 90 cap, 3 Refill(s), Pharmacy: [facility] #58, 178, cm, 12/30/23 15:35:00 EST, Height, 116.75, kg, 02/03/24 12:42:00 EDT, Weight Dosing Start Date: 02/16/24 Status: Ordered prochlorperazine 10 mg oral tablet 10 mg = 1 tab, Oral, QID, PRN nausea, # 20 tab, 0 Refill(s), Pharmacy: [facility] #58, 177, cm, 08/01/23 8:37:00 EDT, Height/Length Dosing, 129, kg, 08/01/23 8:37:00 EDT, Weight Dosing Start Date: 08/01/23 Status: Ordered risperiDONE 1 mg oral tablet 1.5 mg = 1.5 tab, Oral, every night at bedtime, # 45 tab, 3 Refill(s), Pharmacy: [facility] #58, 178, cm, 12/30/23 15:35:00 EST, Height, 121, kg, 03/30/24 8:26:00 EDT, Weight Dosing Start Date: 03/30/24 Stop Date: 07/28/24 Status: Ordered Symbicort 80 mcg-4.5 mcg/inh inhalation aerosol 2 puffs, Inhale, BID, # 10.2 g, 5 Refill(s), Pharmacy: [facility] #58, 177.8, cm, 09/22/22 6:14:00 EST, Height/Length [...] tobacco user;Never entered on: 04/20/23 Sex Male Pulmonary function study * Event Display: Pulmonary Function Studies Please click on link to view image. Patient Care team information Care Team Personnel Name: Kenia Devine MD Position: Physician Member Role: Informed Provider Address: Address: [address] [place] [address] [address], [address] Name: Veronique Rowan EMERGENCY DEPT TECH Position: No Access Member Role: Nurse Practitioner Address: Address: [address] [facility] [address] Name: Irma Monteiro EMERGENCY DEPT TECH Position: Physician Member Role: Nurse Practitioner Address: Address: [address] [facility] [address] Care Team Related Persons Name: SALO BARBOSA Name: JANET BARBOSA
--- OUTSIDE RECORDS SUMMARY | 2024-07-07 11:40 | XMS_ITS | Continuity of Care Document ---
Author Organization [facility] Address [address] [place] [address] Care Team Providers Care Vocational Aide Name Role Phone Kenia Devine Primary Care Physician Encounter [facility] Date(s): 08/12/22 - 08/12/22 [facility] [address] [place] [address] [place] Encounter Diagnosis Cyclic vomiting syndrome(Discharge Diagnosis) - 08/12/22 Discharge Disposition: Home Attending Physician: Felipe Lance MD Admitting Physician: Felipe Lance MD Allergies, Adverse Reactions, Alerts Substance Reaction [...] Appointments Future Scheduled Tests Laboratory* Hemoglobin A1c 06/27/22 Functional Status 08/12/22 Family Member Travel History No recent t [...] rectal suppository 25 mg = 1 supp, [place], every 4 hr, PRN as needed for nausea/vomiting, # 12 supp, 0 Refill(s), Pharmacy: [facility], 178, cm, 06/27/22 6:14:00 EDT, Height/Length Dosing, 118.85, kg, 06/27/22 6:14:00 EDT, Weight Dosing Start Date: 06/27/22 Status: Ordered Albuterol (Eqv-ProAir HFA) 90 mcg/inh inhalation aerosol 180 mcg 2 puffs, Inhale, every 4 hr, PRN not specified, # 18 g, 0 Refill(s), Pharmacy: [id number], 177, cm, 06/07/22 17:11:00 EDT, Height/Length Dosing, 119, kg, 06/07/22 17:11:00 EDT, Weight Dosing Start Date: 06/16/22 Status: Ordered amitriptyline 25 mg oral tablet 25 mg = 1 tab, Oral, every night at bedtime, # 90 tab, 1 Refill(s), Pharmacy: [facility],177.8, cm, 07/08/22 7:12:00 EDT, Height/Length Dosing, 117.93, kg, 07/08/22 7:12:00 EDT, Weight Dosing Start Date: 07/16/22 Status: Ordered amLODIPine 10 mg oral tablet 10 mg = 1 tab, Oral, Daily Start Date: 05/01/22 Status: Ordered aprepitant 80 mg oral capsule 80 mg = 1 cap, Oral, every morning, # 30 cap, 0 Refill(s), Pharmacy: [facility], 177.8, cm, 07/08/22 7:12:00 EDT, Height/Length Dosing, 117.93, kg, 07/08/22 7:12:00 EDT, Weight Dosing Start Date: 07/10/22 Status: Ordered baclofen 10 mg oral tablet 10 mg = 1 tab, Oral, TID, PRN other (see comment), as needed, # 21 tab, 0 Refill(s), Pharmacy: [facility], 177.8, cm, 04/12/22 11:32:00 EDT, Height/Length [...] Once, # 1 EA, 0 Refill(s), Pharmacy: [facility], 177.8, cm, 06/01/22 17:05:00 EDT, Height/Length Dosing, 117.93, kg, 06/01/22 17:05:00 EDT, Weight Dosing Start Date: 06/04/22 Status: Ordered escitalopram 20 mg oral tablet 20 mg = 1 tab, Oral, every morning, # 30 tab, 2 Refill(s), Pharmacy: [facility], 178, cm,08/12/22 6:44:00 EDT, Height/Length Dosing, 117.9, kg, 08/12/22 6:44:00 EDT, Weight Dosing Start Date: 08/12/22 Stop Date: 11/10/22 Status: Ordered ibuprofen 800 mg oral tablet [...] Daily, # 90 cap, 0 Refill(s), Pharmacy: [facility], 177.8, cm, 06/01/22 17:05:00 EDT, Height/Length [...] bedtime, # 30 tab, 2 Refill(s), Pharmacy: [facility],178, cm, 08/12/22 6:44:00 EDT, Height/Length Dosing, [...] nausea, # 25 tab, 0 Refill(s), Pharmacy: [facility], 177.8, cm, 06/01/22 17:05:00 EDT, Height/Length Dosing, 117.93, kg, 06/01/22 17:05:00 EDT, Weight Dosing Start Date: 06/02/22 Status: Ordered prochlorperazine 10 mg oral tablet 10 mg = 1 tab, Oral, QID, # 28 tab, 0 Refill(s), Pharmacy: [facility], 178, cm, 08/11/22 6:40:00 EDT, Height/Length Dosing, 117.9, kg, 08/11/22 6:40:00 EDT, Weight Dosing Start Date: 08/11/22 Status: Ordered risperiDONE 1 mg oral tablet 1 mg = 1 tab, Oral, every night at bedtime, # 30 tab, 2 Refill(s), Pharmacy: [facility], 178, cm, 08/12/22 6:44:00 EDT, Height/Length Dosing, 117.9, kg, 08/12/22 6:44:00 EDT, Weight Dosing Start Date: 08/12/22 Stop Date: 11/10/22 Status: Ordered Symbicort 80 mcg-4.5 mcg/inh inhalation aerosol 2 puffs, Inhale, BID, 0 Refill(s) Start Date: 05/01/22 Status: Ordered tamsulosin 0.4 mg oral capsule 0.4 mg = 1 cap, Oral, Daily Start Date: 07/19/22 Status: Ordered Mental Status 08/12/22 Eye Opening Response Dorcas Spontaneous ly Best Verbal Response Dorcas Oriented Best Motor Response [place] Obeys comman ds Dorcas Coma Score 15 Problem List Condition Effective Dates Status Health [...] recent to oldest [Reference Range]: 1 2 Temperature Tympanic [36.6-37.9 Deg C] 3 6.5 Deg C *LOW* (08/12/22 6:34 AM) Peripheral Pulse Rate [60-100 bpm] 114 b pm *HI* (08/12/22 8:01 AM) 128 bpm *HI* (08/12/22 6:34 AM) Respiratory Rate [12-24 br/min] 18 br/mi n (08/12/22 8:01 AM) 18 br/min (08/12/22 6:34 AM) Blood Pressure [90-140/60-90 mmHg] 162/1 08mmHg *HI* (08/12/22 8:01 AM) 176/115mmHg *HI* (08/12/22 6:34 AM) Weight Dosing 117.90 kg (08/12/22 6:44 AM) Weight Estimated 117.90 kg (08/12/22 6:34 AM) Height/Length Dosing 178.000 cm (08/12/22 6:44 AM) Height/Length Estimated 178.000 cm (08/12/22 6:34 AM) Social History Social History Type Response Smoking Status Never; Smoking tobac co use: Never tobacco user entered on: 06/16/22 Sex Male Hospital Discharge Instructions Patient Education 08/12/2022 06:46:24 Cyclic Vomiting Syndrome, Adult Cyclic Vomiting Syndrome, [...] meals. ??? Taking medicines, such as: ??? Bgjk-sno-eamaipm pain medicine. ??? Anti-nausea medicines. ??? Antacids. ??? Antihistamines. ??? Medicines for migraines. ??? Antidepressants. ??? Antibiotics. Severe nausea and vomiting may require you to stay at the hospital. You may need IV fluids to prevent or treat dehydration. Follow these instructions at home: During an episode ??? Take [id number]-[id number] and prescription medicines only as told by [...] avoid spicy or fatty foods, such as mauritanian fries and pizza. General instructions ??? Monitor [...] provider. Document Revised: 01/22/2022 Document Reviewed: 10/03/2021 [employer] Patient Education ?? 2021 [employer]. Follow Up Care 08/12/2022 06:34:14 With:Follow up with primary care provider Address: When:1 to 2 days Comments:You been seen in the emergency department and no emergent medical condition has been identified. ??It is recommended that you follow-up with your primary care provider within the next??48 hours. ??Ifyour condition worsens or you are unable to??arrange for appropriate follow-up please??reach out tot emergency department by phone or return to the emergency department for repeat evaluation. Patient Care team information Personnel Name: Kenia Devine MD Address: Address: [place] [address]- [place]
--- OUTSIDE RECORDS SUMMARY | 2024-07-07 11:40 | XMS_ITS | Continuity of Care Document ---
Author Organization [facility] Address [address] [place] [address] Care Team Providers Care Netezza Architect Name Role Phone Kenia Devine Primary Care Physician Encounter [facility] Date(s): 08/01/23 - 08/01/23 [facility] [address] [place] [address] Encounter Diagnosis Cyclical vomiting(Discharge Diagnosis) - 08/01/23 Discharge Disposition: Home or Self Care Attending [...] Plan Extracted from: Title:Clinical Document Author:Magali Sarah te:08/01/23 Diagnosis: 1. Cyclical vomit ing Comment: Diagnosis: Vomiting Comment: Future Appointments Functional Status 08/01/23 Family Member Travel History No recent t [...] rectal suppository 25 mg = 1 supp, AL, every 4 hr, PRN as needed for nausea/vomiting, # 30 supp, 0 Refill(s), Pharmacy: [facility], 178, cm, 09/04/22 7:09:00 EDT, Height/Length Dosing, 119, kg, 09/04/22 7:09:00 EDT, Weight Dosing Start Date: 09/16/22 Status: Ordered Albuterol (Eqv-ProAir HFA) 90 mcg/inh inhalation aerosol 2 puffs, Inhale, every 4 hr, PRN NEEDED, # 8.5 g, 7 Refill(s), Pharmacy: [facility], 178, cm, 05/03/23 10:32:00 EDT, Height/Length Dosing, 125.7, kg, 05/03/23 10:32:00 EDT, Weight Dosing Start Date: 07/10/23 Status: Ordered amitriptyline 25 mg oral tablet 1 tab, Oral, every night at bedtime, # 90 tab, 2 Refill(s), Pharmacy: [facility], 178, cm, 05/03/23 10:32:00 EDT, Height/Length Dosing, 125.7, kg, 05/03/23 10:32:00 EDT, Weight Dosing Start Date: 07/10/23 Status: Ordered amitriptyline 75 mg oral tablet 75 mg = 1 tab, Oral, Daily, # 90 tab, 3 Refill(s), 07/30/24 3:51:00 PM CDT, Pharmacy: [facility], 177.8, cm, 07/30/23 7:34:00 EDT, Height/Length Dosing, 121.3, kg, 07/30/23 7:34:00 EDT, Weight Dosing Start Date: 07/30/23 Stop Date: 07/30/24 Status: Ordered Ativan 1 mg oral tablet 1 mg = 1 tab, Oral, Daily, PRN nausea/vomiting, Use as needed during cyclical vomiting episodes, 1 mg tab every 4 hrs PRN until resolved, # 30 tab, 0 Refill(s), Pharmacy: [facility], 178, cm, 05/03/23 10:32:00 EDT, Height/Length Dosing, 125.7, kg, 05/03/23 10:32:00 EDT, Weight Dosing Start Date: 07/21/23 Status: Ordered capsaicin 0.025% topical cream 1 barrera, Topical, TID, PRN other (see comment), APPLY TO THE AFFECTED AREA(S) NEEDED Start Date: 07/19/22 Status: Ordered EpiPen 2-Flip 0.3 mg injectable kit 0.3 mg =, IM, Once, # 1 EA, 0 Refill(s), Pharmacy: [facility], 177.8, cm, 06/01/22 17:05:00 EDT, Height/Length Dosing, 117.93, kg, 06/01/22 17:05:00 EDT, Weight Dosing Start Date: 06/04/22 Status: Ordered escitalopram 20 mg oral tablet 20 mg = 1 tab, Oral, every morning, # 30 tab, 2 Refill(s), Pharmacy: [facility], 178, cm,05/03/23 10:32:00 EDT, Height/Length Dosing, 125.7, kg, 05/03/23 10:32:00 EDT, Weight Dosing Start Date: 05/07/23 Stop Date: 08/05/23 Status: Ordered gabapentin 300 mg oral capsule 600 mg = 2 cap, Oral, BID, 600mg BID, # 60 cap, 0 Refill(s), Pharmacy: [facility], 178, cm, 12/13/22 13:06:00 EST, Height/Length Dosing, 126, kg, 12/13/22 13:06:00 EST, Weight Dosing Start Date: 02/04/23 Status: Ordered haloperidol 1 mg oral tablet See Instructions, 1 tab Oral at onset of cyclical vomiting syndrome, # 30 tab, 0 Refill(s), Pharmacy: [facility], 178, cm, 05/03/23 10:32:00 EDT, Height/Length Dosing, 125.7, kg, 05/03/23 10:32:00 EDT, Weight Dosing Start Date: 07/21/23 Status: Ordered haloperidol 2 mg oral tablet 2 mg = 1 tab, Oral, QID, PRN nausea, # 45 tab, 1 Refill(s), 07/30/24 3:50:00 PM CDT, Pharmacy: [facility], 177.8, cm, 07/30/23 7:34:00 EDT, Height/Length Dosing, 121.3, kg, 07/30/23 7:34:00 EDT, Weight Dosing Start Date: 07/30/23 Stop Date: 07/30/24 Status: Ordered haloperidol 2 mg oral tablet 2 mg = 1 tab, Oral, every 6 hr, PRN nausea/vomiting, # 60 tab, 11 Refill(s), 08/01/24 7:57:00 AM CDT, Pharmacy: [facility], 177, cm, 08/01/23 8:37:00 EDT, Height/Length [...] beverages, # 30 cap, 2 Refill(s), Pharmacy: [facility], 178, cm, 10/30/22 13:49:00 EST, Height/Length Dosing, 126,kg, 10/30/22 13:49:00 EST, Weight Dosing Start Date: 11/21/22 Stop Date: 02/19/23 Status: Ordered lisinopril 10 mg oral tablet 1 tab, Oral, Daily, # 90 tab, 3 Refill(s), Pharmacy: [facility], 178, cm, 05/03/23 10:32:00 EDT, Height/Length Dosing, 125.7, kg, 05/03/23 10:32:00 EDT, Weight Dosing Start Date: 06/11/23 Status: Ordered melatonin 3 mg oral tablet 9 mg = 3 tab, Oral, every day at bedtime Start Date: 07/19/22 Status: Ordered meloxicam 15 mg oral tablet 15 mg = 1 tab, Oral, Daily, PRN pain, moderate, # 30 tab, 2 Refill(s), Pharmacy: [facility], 178, cm, 05/03/23 10:32:00 EDT, Height/Length Dosing, 125.7, kg, 05/03/23 10:32:00 EDT, Weight Dosing Start Date: 06/09/23 Status: Ordered metoprolol succinate 50 mg oral capsule, extended release 50 mg = 1 cap, Oral, Daily, # 90 cap, 3 Refill(s), Pharmacy: [facility], 178, cm, 08/13/22 8:42:00 EDT, Height/Length Dosing, 117.9, kg, 08/13/22 8:42:00 EDT, Weight Dosing Start Date: 09/03/22 Status: Ordered mirtazapine 30 mg oral tablet 30 mg = 1 tab, Oral, every night at bedtime, # 30 tab, 2 Refill(s), Pharmacy: [facility],177.8, cm, 04/20/23 7:11:00 EDT, Height/Length Dosing, 128.37, kg, 04/20/23 7:11:00 EDT, Weight Dosing Start Date: 04/30/23 Stop Date: 07/29/23 Status: Ordered omeprazole 40 mg oral delayed release capsule See Instructions, TAKE ONE CAPSULE BY MOUTH EVERY DAY, # 90 cap, 3 Refill(s), Pharmacy: [facility], 178, cm, 12/13/22 13:06:00 EST, Height/Length Dosing, 126, kg, 12/13/22 13:06:00 EST, Weight Dosing Start Date: 02/25/23 Status: Ordered ondansetron 4 mg oral tablet, disintegrating 4 mg = 1 tab, Oral, every 6 hr, PRN as needed for nausea/vomiting, X 10 days, # 15 tab, 0 Refill(s), 08/11/23 4:07:00 PM CDT, Pharmacy: [facility], 177, cm, 08/01/23 8:37:00 EDT, Height/Length Dosing, 129, kg, 08/01/23 8:37:00 EDT, Weight Dosing Start Date: 08/01/23 Stop Date: 08/11/23 Status: Ordered prochlorperazine 10 mg oral tablet 10 mg = 1 tab, Oral, QID, PRN nausea, # 20 tab, 0 Refill(s), Pharmacy: [facility], 177, cm, 08/01/23 8:37:00 EDT, Height/Length Dosing, 129, kg, 08/01/23 8:37:00 EDT, Weight Dosing Start Date: 08/01/23 Status: Ordered risperiDONE 1 mg oral tablet 1 mg = 1 tab, Oral, every night at bedtime, # 30 tab, 2 Refill(s), Pharmacy: [facility], 178, cm, 05/03/23 10:32:00 EDT, Height/Length Dosing, 125.7, kg, 05/03/23 10:32:00 EDT, Weight Dosing Start Date: 05/07/23 Stop Date: 08/05/23 Status: Ordered Symbicort 80 mcg-4.5 mcg/inh inhalation aerosol 2 puffs, Inhale, BID, # 10.2 g, 5 Refill(s), Pharmacy: [facility], 177.8, cm, 09/22/22 6:14:00 EST, Height/Length [...] Laboratory List Name Date Basic Metabolic Panel 08/01/23 CBC w/ Diff 08/01/23 Automated Diff 08/01/23 Most recent to oldest [Reference Range]: 1 WBC [5.0-10.0 x10^3/mcL] 6.8 x10^3/mcL (08/01/23 8:46 AM) RBC [4.6-6.0 x10^6/mcL] 4.9 x10^6/mcL (08/01/23 8:46 AM) Neutro Auto [40.0-75.0 %] 73.7 % (08/01/23 8:46 AM) Lymph Auto [20.0-50.0 %] 15.1 % *LOW* (08/01/23 8:46 AM) [place] Auto [2.0-15.0 %] 9.0 % (08/01/23 8:46 AM) Basophil Auto [0.0-1.0 %] 0.3 % (08/01/23 8:46 AM) BUN [7-18 mg/dL] 18 mg/dL (08/01/23 8:46 AM) Glucose Level [74-106 mg/dL] 194 mg/dL *HI* (08/01/23 8:46 AM) Potassium Level [3.5-5.1 mmol/L] 3.1 mmo l/L *LOW* (08/01/23 8:46 AM) MCV [80.0-96.0 fL] 81.8 fL (08/01/23 8:46 AM) MCHC [31.0-35.0 g/dL] 34.2 g/dL (08/01/23 8:46 AM) Sodium Level [136-145 mmol/L] 139 mmol/L (08/01/23 8:46 AM) Hct [41.0-51.0 %] 40.1 % *LOW* (08/01/23 8:46 AM) Calcium Level [8.5-10.1 mg/dL] 8.8 mg/dL (08/01/23 8:46 AM) MCH [26.0-32.0 pg] 28.0 pg (08/01/23 8:46 AM) Neutro Absolute 5.0 x10^3/mcL *NA* (08/01/23 8:46 AM) Hgb [14.0-18.0 g/dL] 13.7 g/dL *LOW* (08/01/23 8:46 AM) Platelets [130-450 x10^3/mcL] 193 x10^3/ mcL (08/01/23 8:46 AM) CO2 [21-32 mmol/L] 25 mmol/L (08/01/23 8:46 AM) eGFR Non-AA [>=60] 68 (08/01/23 8:46 AM) eGFR AA [>=60] 68 (08/01/23 8:46 AM) Chloride Level [98-107 mmol/L] 104 mmol/ L (08/01/23 8:46 AM) RDW-CV [11.5-14.5 %] 13.6 % (08/01/23 8:46 AM) Imm Gran Auto [0.0-0.9 %] 0.7 % (08/01/23 8:46 AM) Creatinine Level [0.70-1.30 mg/dL] 1.22 mg/dL (08/01/23 8:46 AM) Eos, Auto [1.0-6.0 %] 1.2 % (08/01/23 8:46 AM) Vital Signs Most recent to oldest [Reference Range]: 1 2 3 Temperature Temporal Artery [36-38 Deg C] 36.0 Deg C (08/01/23 8:31 AM) Peripheral Pulse Rate [60-100 bpm] 117 bpm *HI* (08/01/23 5:03 PM) 105 bpm *HI* (08/01/23 4:35 PM) 95 bpm (08/01/23 3:14 PM) Heart Rate Monitored [60-100 bpm] 114 bpm *HI* (08/01/23 5:03 PM) 95 bpm (08/01/23 4:35 PM) 107 bpm *HI* (08/01/23 3:29 PM) Respiratory Rate [12-24 br/min] 28 br/min *HI* (08/01/23 5:03 PM) 23 br/min (08/01/23 4:35 PM) 18 br/min (08/01/23 3:29 PM) Blood Pressure [90-140/60-90 mmHg] 154/112mmHg *HI* (08/01/23 5:03 PM) 176/115mmHg *HI* (08/01/23 4:35 PM) 124/84mmHg (08/01/23 3:29 PM) Mean Arterial Pressure, Cuff [65-140 mmHg] 126 mmHg (08/01/23 5:03 PM) 135 mmHg (08/01/23 4:35 PM) 97 mmHg (08/01/23 3:29 PM) Weight Dosing 129.00 kg (08/01/23 8:37 AM) Weight Estimated 129.00 kg (08/01/23 8:31 AM) Height/Length Dosing 177.000 cm (08/01/23 8:37 AM) Height/Length Estimated 177.000 cm (08/01/23 8:31 AM) Social History Social History Type Response Smoking Status Smoking tobacco use: Never tobacco user;Never entered on: 04/20/23 Sex Male Hospital Discharge Instructions Patient Education 08/01/2023 16:04:03 Cyclic Vomiting Syndrome, Adult Cyclic Vomiting Syndrome, [...] Emotional stress, including excitement or anxiety about finances, relationships, or moving. ??? Certain foods or beverages, such as chocolate, cheese, alcohol, and food additives. ??? Food allergies. ??? Motion sickness. ??? Eating a large meal before bed. ??? Being very tired. ??? Being overheated. ??? Menstruation. ??? Long-term cannabis use. What increases the risk? You are more [...] ??? Headache. ??? Dizziness. ??? Sensitivity to light or sound. ??? Abdominal pain. This can be severe. ??? Loose stools or diarrhea. ??? Weakness or exhaustion. ??? Dehydration. This can cause: ??? Thirst. [...] more, and occur 1 week apart or further apart. ??? Episodes that are similar each [...] meals. ??? Taking medicines, such as: ??? Anti-nausea medicines. ??? Antacids. ??? Antidepressants. ??? Antihistamines. ??? Medicines for migraines. ??? Qioe-zdd-zwhpkik pain medicine. ??? Over-the counter diet supplements. Severe nausea and vomiting may require you to stay at the hospital. You may need IV fluids to prevent or treat dehydration. Follow these instructions at home: During an episode ??? Take gnzt-fdc-blekysp and prescription medicines only as told by [...] avoid spicy or fatty foods, such as frisian fries and pizza. General instructions ??? Monitor your condition for any changes. ??? Keep track of your attacks and symptoms, and pay attention to any triggers. Avoid those triggers when you can. ??? If you use cannabis, stop using it right away. Ending cannabis use can reduce or even stop yourcyclic vomiting syndrome. ??? Keep all follow-up visits. This is important. Where to find more information ??? Cyclic Vomiting Syndrome Association: cvsaonline.org Contact a health care provider if: ??? [...] making tears while crying. ??? Very dry mouth or cracked lips. ??? Decreased urine production. ??? Dark urine. Urine may be the color of tea. ??? Weakness. ??? Sleepiness. These symptoms may be an emergency. Get help right away. Call 911. ??? Do not wait to see if the symptoms will go away. ??? Do not drive yourself to the hospital. Summary ??? Cyclic vomiting syndrome ([facility]) causes [...] right away. ??? Keep all follow-up visits This is important. This information is not intended to replace advice given to you by your health care provider. Make sure you discuss any questions you have with your health care provider. Document Revised: 06/11/2022 Document Reviewed: 06/11/2022 [employer] Patient Education ?? 2022 [employer] Follow Up Care 08/01/2023 08:30:59 With:Follow up with primary care provider Address: When:1 to 2 weeks Physician Emergency department Note * Loli Mead MD: PERFORM Event Display: ED Note Physician Authored Date: [id number] EUGENIA KNOWLES :1965 Age:58 years Sex:Male Visit Date:08/01/2023 Primary Care Physician: Kenia Devine MD Basic Information Time Seen: Loli Mead MD / 08/01/2023 08:31 Chief Complaint I woke ??up this morning feel nauseated. I started vomiting at 715 this morning. I took my haldol and ativan 1 mg each w/o relief. PT pale on arrival History Of Present Illness: pt seen in the ed for another episode of nausea vomiting??patient received cocktail of medications and fluids.?? Patient reports yesterday he was nauseated.?? Today he started with vomiting again??around 7 AM. ??Patient reports he had taken his increase in his??amitriptyline to 75 mg last night for the first time.?? Patient did not take??more than the 1 mg Haldol this morning??as he saidthe bottle just had 1 mg every 6 hours as needed. ??Patient did take a dose of??Ativan??1 mg as well prior to arrival.?? Patient has not taken any other nausea medicines.?? No fever no chills no ear nose or throat pain??no chest pain no cough no??abdominal pain positive nausea and vomiting??no diarrhea no extremity edema no skin rashes Review of Systems: see hpi for ros Physical Exam Vitals & Measurements T:??36.0?C ??(Temporal Artery)?? HR:??117??(Peripheral)?? HR:??114??(Monitored)?? RR:??28?? BP:??154/112?? SpO2:??96%?? HT:??177.000??cm?? WT:??129.00??kg??(Estimated)?? O2 Therapy:??Room air?? General: Alert and oriented, well nourished,?No??acute distress Eye: PER?Normal??conjunctiva,??No??scleral icterus HENT: Normocephalic,??nontraumatic??Normal hearing Lungs: Clear to auscultation,?Non-labored?? respiration Heart:?Normal?? rate,?Regular??rhythm,?No??murmur,?No??gallop,?No??edema Chest: wall excursion wnl no abnormal movements no obvious deformities Abdomen: Soft, non-tender, non-distended,??No??masses Musculoskeletal:?Normal?? range of motion and strength,?No??tenderness,?No??swelling Skin: Skin is warm, dry and pink,?No??rashes,?No??lesions Neurologic: Awake, alert and oriented X4 Psychiatric: Cooperative, appropriate mood and affect Medical Decision Making: For MDM please see under assessment and plan Procedure No Qualifying Data Assessment/Plan 1.??Cyclical vomiting??R11.15 Reports??he felt positive??improvement after his most recent medication??he would like to go home. ??Prescriptions are sent to the pharmacy??for [employer] and??increased dose of Haldol 2 mg every 6 hours as needed.?? Patient will continue with increased dose of his Elavil to 75 mg/day??he isaware this may need to be increased??further??if continued cyclical vomiting. ??It seems like the Elavil has been??the thing that has helped the most in the last year or so??to help with his cyclicalvomiting.?? It appears that references suggest to 100 mg for cyclical vomiting however if he has continued cyclical vomiting??it may need to be increased further. Ordered: ondansetron 4 mg oral tablet, disintegrating, 4 mg = 1 tab, Oral, every 6 hr, PRN as needed for nausea/vomiting, X 10 days, # 15 tab, 0 Refill(s), 08/11/23 17:07:00 EDT, Pharmacy: [facility], 177, cm, 08/01/23 8:37:00 EDT, Height/Length Dosing, 129, kg, 08/01/23 8:37:00 EDT, Weight Dosing prochlorperazine 10 mg oral tablet, 10 mg = 1 tab, Oral, QID, PRN nausea, # 20 tab, 0 Refill(s), Pharmacy: [facility], 177, cm, 08/01/23 8:37:00 EDT, Height/Length Dosing, 129, kg, 238:37:00 EDT, Weight Dosing Discharge Patient, 08/01/23 17:03:00 EDT, Home Independently, Constant Indicator ?? Orders: haloperidol 2 mg oral tablet, 2 mg = 1 tab, Oral, every 6 hr, PRN nausea/vomiting, # 60 tab, 11 Refill(s), 08/01/24 8:57:00 EDT, Pharmacy: [facility], 177, cm, 08/01/23 8:37:00 EDT, Height/Length Dosing, 129, kg, 08/01/23 8:37:00 EDT, Weight Dosing NS w/K20 1,000 mL, Total Volume (mL): 1,000, 1,000 mL, Soln-IV, IV, 500 mL/hr, Start Date: 08/01/2313:44:00 EDT, 129 kg, Populate Charting Weight From Order, 2.52, m2 NS w/K20 1,000 mL, Total Volume (mL): 1,000, 1,000 mL, Soln-IV, IV, 500 mL/hr, Start Date: 08/01/2310:14:00 EDT, 129 kg, Populate Charting Weight From Order, 2.52, m2 Patient Education Cyclic Vomiting Syndrome, Adult Follow Up With When Contact Information Follow up with primary care provider Within 1 to 2 weeks Additional Instructions: Medication Reconciliation New Prescription ondansetron (ondansetron 4 mg oral tablet, disintegrating)1 tab Oral (given by mouth) every 6 hoursas needed as needed for nausea/vomiting for 10 Days. Refills: 0. ?? prochlorperazine (prochlorperazine 10 mg oral tablet)1 tab Oral (given by mouth) 4 times a day as needed nausea. Refills: 0. ?? Changed haloperidol (haloperidol 1 mg oral tablet)1 tab Oral at onset of cyclical vomiting syndrome. Refills: 0. ?? haloperidol (haloperidol 2 mg oral tablet)1 tab Oral (given by mouth) 4 times a day as needed nausea. Refills: 1. ?? haloperidol (haloperidol 2 mg oral tablet)1 tab Oral (given by mouth) every 6 hours as needed nausea/vomiting. Refills: 11. ?? Unchanged albuterol (Albuterol (Eqv-ProAir HFA) 90 mcg/inh inhalation aerosol)2 Puffs Inhale (breathe in) every 4 hours as needed. Refills: 7. ?? amitriptyline (amitriptyline 25 mg oral tablet)1 tab Oral (given by mouth) every night at bedtime. Refills: 2. ?? amitriptyline (amitriptyline 75 mg oral tablet)1 tab Oral (given by mouth) every day. Refills: 3. ?? budesonide-formoterol (Symbicort 80 mcg-4.5 mcg/inh inhalation [...] for 30 Days.Refills: 2. ?? gabapentin (gabapentin 300 mg oral capsule)2 Capsules Oral (given by mouth) 2 times a day. 600mg BID. Refills: 0. ?? ibuprofen (ibuprofen 800 mg [...] by mouth) every day. Refills: 3. ?? LORazepam (Ativan 1 mg oral tablet)1 tab Oral (given by mouth) every day as needed nausea/vomiting.Use as needed during cyclical vomiting episodes, 1 mg tab every 4 hrs PRN until resolved. Refills: 0. ?? melatonin (melatonin 3 mg oral tablet)3 tab Oral (given by mouth) every night at bedtime. ?? meloxicam (meloxicam 15 mg oral tablet)1 tab Oral (given by mouth) every day as needed pain, moderate. Refills: 2. ?? metoprolol (metoprolol succinate 50 mg oral [...] night at bedtime for 30Days. Refills: 2. Problem List/Past Medical History Ongoing Adult attention [...] of right inguinal hernia Medication Administration Given NS w/K20, 1000 mL, IV NS w/K20, 1000 mL, IV 0.9% NaCl bolus, 1000 mL, IV Bolus Ativan, 1 mg, IV Push Ativan, 1 mg, IV Push Ativan, 1 mg, IV Push Benadryl, 50 mg, IV Push Benadryl, 50 mg, IV Push haloperidol, 1 mg, Slow IV Push haloperidol, 1 mg, Slow IV Push ondansetron, 4 mg, IV Push ondansetron, 4 mg, IV Push prochlorperazine, 10 mg, IV Push prochlorperazine, 10 mg, IV Push Allergies PEANUT??(Anaphylaxis) EGG??(Vomiting) FISH CONTAINING PRODUCTS??(Vomiting) HOUSE DUST MITE MOLD TREE NUT??(Anaphylactic reaction) acetaminophen-hydrocodone??(Vomiting) hydroCHLOROthiazide metoclopramide??(Urticaria) Social History Alcohol Never Electronic Cigarette/Vaping Electronic Cigarette Use: Never. 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 Home/Environment Lives with Alone. Nutrition/Health Diet: Regular. Caffeine intake amount: couple glasses of soda daily. Psychosocial Substance Use Never Tobacco Never tobacco user Tobacco Use:. Never Smokeless Tobacco use:. Family History Arteriosclerotic heart disease: Father. Depressive disorder: Father. Lab Results CBC and Differential?? LATEST RESULTS?? HISTORICAL RESULTS?? WBC?? 08/01/23 08:46?? 6.8?? 07/30/23?? 8.5?? RBC?? 08/01/23 08:46?? 4.9?? 07/30/23?? 5.2?? Hgb?? 08/01/23 08:46?? 13.7 ??Low?? 07/30/23?? 14.3?? Hct?? 08/01/23 08:46?? 40.1 ??Low?? 07/30/23?? 42.1?? MCV?? 08/01/23 08:46?? 81.8?? 07/30/23?? 81.6?? MCH?? 08/01/23 08:46?? 28.0?? 07/30/23?? 27.7?? MCHC?? 08/01/23 08:46?? 34.2?? 07/30/23?? 34.0?? RDW-CV?? 08/01/23 08:46?? 13.6?? 07/30/23?? 13.1?? Platelets?? 08/01/23 08:46?? 193?? 07/30/23?? 208?? Neutro Auto?? 08/01/23 08:46?? 73.7?? 05/03/23?? 65.6?? Lymph Auto?? 08/01/23 08:46?? 15.1 ??Low?? 05/03/23?? 22.2?? [place] Auto?? 08/01/23 08:46?? 9.0?? 05/03/23?? 8.1?? Eos, Auto?? 08/01/23 08:46?? 1.2?? 05/03/23?? 2.7?? Basophil Auto?? 08/01/23 08:46?? 0.3?? 05/03/23?? 0.5?? Imm Gran Auto?? 08/01/23 08:46?? 0.7?? 05/03/23?? 0.9?? Neutro Absolute?? 08/01/23 08:46?? 5.0?? 05/03/23?? 3.7? Routine Chemistry?? LATEST RESULTS?? HISTORICAL RESULTS?? Sodium Level?? 08/01/23 08:46?? 139?? 07/30/23?? 137?? Potassium Level?? 08/01/23 08:46?? 3.1 ??Low?? 07/30/23?? 3.5?? Chloride Level?? 08/01/23 08:46?? 104?? 07/30/23?? 99?? CO2?? 08/01/23 08:46?? 25?? 07/30/23?? 26?? BUN?? 08/01/23 08:46?? 18?? 07/30/23?? 13?? Glucose Level?? 08/01/23 08:46?? 194 ??High?? 07/30/23?? 183 ??High?? Creatinine Level?? 08/01/23 08:46?? 1.22?? 07/30/23?? 0.99?? eGFR AA?? 08/01/23 08:46?? 68?? 07/30/23?? 88?? eGFR Non-AA?? 08/01/23 08:46?? 68?? 07/30/23?? 88?? Calcium Level?? 08/01/23 08:46?? 8.8?? 07/30/23?? 8.8? Electronically Signed on 08/01/23 05:37 PM Loli Mead MD Emergency department Discharge instructions * Loli Mead MD: PERFORM Event Display: ED Discharge Information Authored Date: [id number] EUGENIA KNOWLES :1965 Age:58 years Sex:Male Visit Date:08/01/2023 Primary Care Physician: Kenia Devine MD Discharge Instructions We would like to thank you for allowing us to assist you with your healthcare needs. The following includes patient education materials and information regarding your injury/illness. Diagnosis from Today's Visit Cyclical vomiting Discharge Vitals Temperature??(Temporal Artery) 96.8 ??F (36.0 ??C) Heart Rate??(Peripheral) 117 Heart Rate??(Monitored) 114 Respiratory Rate?? 28 Blood Pressure?? 154/112?? Height?? 69.69 in (177.000 cm) Weight??(Estimated) 284.44 lb (129.00 kg) Allergies PEANUT??(Anaphylaxis) EGG??(Vomiting) FISH CONTAINING PRODUCTS??(Vomiting) HOUSE DUST MITE MOLD TREE NUT??(Anaphylactic reaction) acetaminophen-hydrocodone??(Vomiting) hydroCHLOROthiazide metoclopramide??(Urticaria) What to Do Next Instructions from Your Care Team For nausea and vomiting you may take up to 2 mg of Haldol??(haloperidol) every 6 hours as needed??and??Zofran (ondansetron) 4 mg every 6 hours??and??Compazine (prochlorperazine) 10 mg every 6 hours as needed.?? If you worsen return to the emergency department.?? Please??contact your??road commissioner to see if??they have further suggestions. ??Continue??with your Elavil (amitriptyline) 75 mg/day ??if after a week you still have cyclical vomiting you may need to have that increased further??contact either your primary care provider or road commissioner for this. You Need to Schedule the Following Appointments Follow Up with??Follow up with primary care provider When:??Within 1 to 2 weeks Upcoming Scheduled Appointments Thursday 8:30 AM EDT ?? Thursday 2:00 PM EDT ?? Thursday 8:15 AM EST ?? Thursday 10:30 AM EST ?? You were treated today on [...] Much When Why Instructions Next Dose New ondansetron (ondansetron 4 mg oral tablet, disintegrating) 1 tab Oral (given by mouth) Every 6 hours as needed for as needed for nausea/vomiting Cyclical vomiting Duration: 10 Days Pickup at [facility] New prochlorperazine (prochlorperazine 10 mg oral tablet) 1 tab Oral (given by mouth) 4 times a day as needed for nausea Cyclical vomiting Pickup at [facility] Changed haloperidol (haloperidol 1 mg oral tablet) See instructions 1 tab Oral at onset of cyclical vomiting syndrome ?? Changed haloperidol (haloperidol 2 mg oral tablet) 1 tab Oral (given by mouth) 4 times a day as needed for nausea Cyclical vomiting Changed haloperidol (haloperidol 2 mg oral tablet) 1 tab Oral (given by mouth) Every 6 hours as needed for nausea/vomiting Pickup at [facility] Unchanged albuterol (Albuterol (Eqv-ProAir HFA) 90 mcg/ inh inhalation aerosol) 2 Puffs Inhale (breathe in) Every 4 hours as needed for NEEDED Unchanged amitriptyline (amitriptyline 25 mg oral tablet) 1 tab Oral (given by mouth) Every night at bedtime Unchanged amitriptyline (amitriptyline 75 mg oral tablet) 1 tab Oral (given by mouth) Every day Cyclical vomiting Unchanged budesonide-formoterol (Symbicort 80 mcg-4.5 mcg/ inh [...] times a day 600mg BID ?? Unchanged ibuprofen (ibuprofen 800 mg oral [...] by mouth) Every night at bedtime Unchanged meloxicam (meloxicam 15 mg oral tablet) 1 tab Oral (given by mouth) Every day as needed for pain, moderate Bilateral knee pain Unchanged metoprolol (metoprolol succinate 50 mg oral [...] recurrent, mild Duration: 30 Days Pharmacy Information [facility]: [address] [place], [place] [id number] [phone] Education Materials Cyclic Vomiting Syndrome, Adult Cyclic [...] Emotional stress, including excitement or anxiety about finances, relationships, or moving. ? Certain foods or beverages, such as chocolate, cheese, alcohol, and food additives. ? Food allergies. ? Motion sickness. ? Eating a large meal before bed. ? Being very tired. ? Being overheated. ? Menstruation. ? Long-term cannabis use. What increases the risk? You are more [...] ? Headache. ? Dizziness. ? Sensitivity to light or sound. ? Abdominal pain. This can be severe. ? Loose stools or diarrhea. ? Weakness or exhaustion. ? Dehydration. This can cause: ? Thirst. [...] more, and occur 1 week apart or further apart. ? Episodes that are similar each [...] meals. ? Taking medicines, such as: ? Anti-nausea medicines. ? Antacids. ? Antidepressants. ? Antihistamines. ? Medicines for migraines. ? Gkva-uxf-vrneqda pain medicine. ? Over-the counter diet supplements. Severe nausea and vomiting may require you to stay at the hospital. You may need IV fluids to prevent or treat dehydration. Follow these instructions at home: During an episode ? Take vmyt-fjf-[id number] and prescription medicines only as told by [...] avoid spicy or fatty foods, such as frisian fries and pizza. General instructions ? Monitor your condition for any changes. ? Keep track of your attacks and symptoms, and pay attention to any triggers. Avoid those triggers when you can. ? If you use cannabis, stop using it right away. Ending cannabis use can reduce or even stop your cyclic vomiting syndrome. ? Keep all follow-up visits. This is important. Where to find more information ? Cyclic Vomiting Syndrome Association: cvsaonline.org Contact a health care provider if: ? [...] making tears while crying. ? Very dry mouth or cracked lips. ? Decreased urine production. ? Dark urine. Urine may be the color of tea. ? Weakness. ? Sleepiness. These symptoms may be an emergency. Get help right away. Call 911. ? Do not wait to see if the symptoms will go away. ? Do not drive yourself to the hospital. Summary ? Cyclic vomiting syndrome ([facility]) causes [...] right away. ? Keep all follow-up visits This is important. This information is not intended to replace advice given to you by your health care provider. Make sure you discuss any questions you have with your health care provider. Document Revised: 06/11/2022 Document Reviewed: 06/11/2022 ElseFIGHTER Interactive Patient Education ?? 2022 [employer] Tests Performed Medications and Immunizations Administered Given NS w/K20, 1000 mL, IV NS w/K20, 1000 mL, IV 0.9% NaCl bolus, 1000 mL, IV Bolus Ativan, 1 mg, IV Push Ativan, 1 mg, IV Push Ativan, 1 mg, IV Push Benadryl, 50 mg, IV Push Benadryl, 50 mg, IV Push haloperidol, 1 mg, Slow IV Push haloperidol, 1 mg, Slow IV Push ondansetron, 4 mg, IV Push ondansetron, 4 mg, IV Push prochlorperazine, 10 mg, IV Push prochlorperazine, 10 mg, IV Push Lab Test Name Test Result Date/Time WBC 6.8 x10^3/mcL 08/01/2023 08:46 EDT RBC 4.9 x10^6/mcL 08/01/2023 08:46 EDT Hgb 13.7 g/dL 08/01/2023 08:46 EDT Hct 40.1 % 08/01/2023 08:46 EDT MCV 81.8 fL 08/01/2023 08:46 EDT MCH 28.0 pg 08/01/2023 08:46 EDT MCHC 34.2 g/dL 08/01/2023 08:46 EDT RDW-CV 13.6 % 08/01/2023 08:46 EDT Platelets 193 x10^3/mcL 08/01/2023 08:46 EDT Neutro Auto 73.7 % 08/01/2023 08:46 EDT Lymph Auto 15.1 % 08/01/2023 08:46 EDT [place] Auto 9.0 % 08/01/2023 08:46 EDT Eos, Auto 1.2 % 08/01/2023 08:46 EDT Basophil Auto 0.3 % 08/01/2023 08:46 EDT Imm Gran Auto 0.7 % 08/01/2023 08:46 EDT Neutro Absolute 5.0 x10^3/mcL 08/01/2023 08:46 EDT Sodium Level 139 mmol/L 08/01/2023 08:46 EDT Potassium Level 3.1 mmol/L 08/01/2023 08:46 EDT Chloride Level 104 mmol/L 08/01/2023 08:46 EDT CO2 25 mmol/L 08/01/2023 08:46 EDT BUN 18 mg/dL 08/01/2023 08:46 EDT Glucose Level 194 mg/dL 08/01/2023 08:46 EDT Creatinine Level 1.22 mg/dL 08/01/2023 08:46 EDT eGFR AA 68 08/01/2023 08:46 EDT eGFR Non-AA 68 08/01/2023 08:46 EDT Calcium Level 8.8 mg/dL 08/01/2023 08:46 EDT Patient/Zinc Plating Machine Operator Signature Patient Name:EUGENIA KNOWLES Linnette I have received this information and my questions have been answered. Patient/Zinc Plating Machine Operator Name: Patient/Zinc Plating Machine Operator Signature: Relationship to Patient: Witness Name/Signature: Date: Electronically Signed on: 08/01/2023 17:09 EDTSigned by:AMS Discharge summary * Magali Sarah: PERFORM Event Display: Discharge Note Authored Date: * Magali Sarah: PERFORM Event Display: Discharge Note Authored Date: Diagnosis: 1. Cyclical vomiting Comment: Diagnosis: Vomiting Comment: Electronically Signed on 08/01/23 05:19 PM Magali Sarah Patient Care team information Care Team Personnel Name: Kenia Devine MD Position: Physician Member Role: Informed Provider Address: Address: [address] Name: Veronique Rowan SOFT TILE SETTER Position: Physician Member Role: Nurse Practitioner Address: Address: [address] [place] [address] Name: Irma Monteiro SOFT TILE SETTER Position: Physician Member Role: Nurse Practitioner Address: Address: [address] [place] [address] Name: Blayne Noriega Position: Nurse Member Role: Registered Nurse Name: Loli Mead MD Position: Physician Member Role: Attending Physician Address: Address: [address] [place] [address] Care Team Related Persons Name: SALO BARBOSA Name: JANET BARBOSA
--- OUTSIDE RECORDS SUMMARY | 2024-07-07 11:40 | XMS_ITS | Continuity of Care Document ---
Author Organization [facility] Address [address] [place] [address] Care Team Providers Care Shotblaster Name Role Phone Kenia Devine Primary Care Physician Encounter [facility] Date(s): 04/14/24 - 04/14/24 [facility] [address] [place] [address] Discharge Disposition: Home or Self Care Attending Physician: Maida Arita PA-C Admitting Physician: Maida Arita PA-C Referring Physician: Maida Arita PA-C Allergies, Adverse Reactions, Alerts Substance Reaction Severity [...] NEEDED, # 8.5 g, 7 Refill(s), Pharmacy: [facility], 178, cm, 05/03/23 10:32:00 EDT, Height/Length Dosing, 125.7, kg, 05/03/23 10:32:00 EDT, Weight Dosing Start Date: 07/10/23 Status: Ordered alfuzosin 10 mg oral tablet, extended release 10 mg = 1 tab, Oral, Daily, # 90 tab, 3 Refill(s), Pharmacy: [facility], 178.5, cm, 10/07/23 14:51:00 EST, Height, 116.95, kg, 11/04/23 14:29:00 EST, Weight Dosing Start Date: 11/25/23 Stop Date: 11/19/24 Status: Ordered amitriptyline 100 mg oral tablet 100 mg = 1 tab, Oral, every day at bedtime, # 90 tab, 2 Refill(s), Pharmacy: [facility], 178.5, cm, 10/07/23 14:51:00 EST, Height, 117.9, kg, 10/07/23 14:59:00 EST, Weight Dosing Start Date: 10/07/23 Status: Ordered Ativan 1 mg oral tablet 1 mg = 1 tab, Oral, Daily, PRN nausea/vomiting, Use as needed during cyclical vomiting episodes, 1 mg tab every 4 hrs PRN until resolved, # 30 tab, 0 Refill(s), Pharmacy: [facility], 178, cm, 05/03/23 10:32:00 EDT, Height/Length Dosing, 125.7, kg, 05/03/23 10:32:00 EDT, Weight Dosing Start Date: 07/21/23 Status: Ordered capsaicin 0.025% topical cream 1 barrera, Topical, TID, PRN other (see comment), APPLY TO THE AFFECTED AREA(S) NEEDED Start Date: 07/19/22 Status: Ordered cyclobenzaprine 10 mg oral tablet 10 mg = 1 tab, Oral, Daily, # 30 tab, 3 Refill(s), Pharmacy: [facility], 178, cm, 12/30/23 15:35:00 EST, Height, 120, kg, 03/23/24 10:29:00 EDT, Weight Dosing Start Date: 03/23/24 Status: Ordered EPINEPHrine 0.3 mg injectable kit See Instructions, INJECT INTRAMUSCULARLY ONCE, # 2 mL, 0 Refill(s), Pharmacy: [facility],178, cm, 12/30/23 15:35:00 EST, Height, 155.62, kg, 12/30/23 15:38:00 EST, Weight Dosing Start Date: 01/13/24 Status: Ordered escitalopram 20 mg oral tablet 20 mg = 1 tab, Oral, every morning, # 30 tab, 3 Refill(s), Pharmacy: [facility], 178, cm,12/30/23 15:35:00 EST, Height, 121, kg, 03/30/24 8:26:00 EDT, Weight Dosing Start Date: 03/30/24 Stop Date: 07/28/24 Status: Ordered haloperidol 2 mg oral tablet 2 mg = 1 tab, Oral, every 6 hr, PRN nausea/vomiting, # 60 tab, 11 Refill(s), 08/01/24 7:57:00 AM CDT, Pharmacy: [facility], 177, cm, 08/01/23 8:37:00 EDT, Height/Length Dosing, 129, kg, 08/01/23 8:37:00 EDT, Weight Dosing Start Date: 08/01/23 Stop Date: 08/01/24 Status: Ordered ibuprofen 800 mg oral tablet 800 mg = 1 tab, Oral, every 8 hr, PRN other (see comment), as needed Start Date: 05/01/22 Status: Ordered lisinopril 10 mg oral tablet 1 tab, Oral, Daily, # 90 tab, 3 Refill(s), Pharmacy: [facility], 178, cm, 05/03/23 10:32:00 EDT, Height/Length Dosing, 125.7, kg, 05/03/23 10:32:00 EDT, Weight Dosing Start Date: 06/11/23 Status: Ordered melatonin 3 mg oral tablet 9 mg = 3 tab, Oral, every day at bedtime Start Date: 07/19/22 Status: Ordered metFORMIN 500 mg oral tablet 1 tab, Oral, BID w/Meals, # 90 tab, 1 Refill(s), Pharmacy: [facility], 178, cm, 12/30/23 15:35:00 EST, Height, 116.75, kg, 02/03/24 12:42:00 EDT, Weight Dosing Start Date: 02/09/24 Status: Ordered Metoprolol Succinate ER 50 mg oral tablet, extended release 1 tab, Oral, Daily, # 90 tab, 3 Refill(s), Pharmacy: [facility], 177, cm, 08/01/23 8:37:00 EDT, Height/Length Dosing, 129, kg, 08/01/23 8:37:00 EDT, Weight Dosing Start Date: 08/23/23 Status: Ordered mirtazapine 30 mg oral tablet 30 mg = 1 tab, Oral, every night at bedtime, # 30 tab, 3 Refill(s), Pharmacy: [facility],178, cm, 12/30/23 15:35:00 EST, Height, 121, kg, 03/30/24 8:26:00 EDT, Weight Dosing Start Date: 03/30/24 Stop Date: 07/28/24 Status: Ordered omeprazole 40 mg oral delayed release capsule 1 cap, Oral, Daily, # 90 cap, 3 Refill(s), Pharmacy: [facility], 178, cm, 12/30/23 15:35:00 EST, Height, 116.75, kg, 02/03/24 12:42:00 EDT, Weight Dosing Start Date: 02/16/24 Status: Ordered prochlorperazine 10 mg oral tablet 10 mg = 1 tab, Oral, QID, PRN nausea, # 20 tab, 0 Refill(s), Pharmacy: [facility], 177, cm, 08/01/23 8:37:00 EDT, Height/Length Dosing, 129, kg, 08/01/23 8:37:00 EDT, Weight Dosing Start Date: 08/01/23 Status: Ordered risperiDONE 1 mg oral tablet 1.5 mg = 1.5 tab, Oral, every night at bedtime, # 45 tab, 3 Refill(s), Pharmacy: [facility], 178, cm, 12/30/23 15:35:00 EST, Height, 121, kg, 03/30/24 8:26:00 EDT, Weight Dosing Start Date: 03/30/24 Stop Date: 07/28/24 Status: Ordered Symbicort 80 mcg-4.5 mcg/inh inhalation aerosol 2 puffs, Inhale, BID, # 10.2 g, 5 Refill(s), Pharmacy: [facility], 177.8, cm, 09/22/22 6:14:00 EST, Height/Length [...] Results Laboratory List Name Date Automated Diff 04/14/24 CBC w/ Diff 04/14/24 Comprehensive Metabolic Panel 04/14/24 Creatine Kinase 04/14/24 Magnesium Level 04/14/24 Thyroid Stimulating Hormone 04/14/24 Most recent to oldest [Reference Range]: 1 WBC [5.0-10.0 x10^3/mcL] 5.1 x10^3/mcL (04/14/24 3:00 PM) RBC [4.6-6.0 x10^6/mcL] 4.5 x10^6/mcL *LOW* (04/14/24 3:00 PM) Neutro Auto [40.0-75.0 %] 63.5 % (04/14/24 3:00 PM) Lymph Auto [20.0-50.0 %] 24.8 % (04/14/24 3:00 PM) [place] Auto [2.0-15.0 %] 7.9 % (04/14/24 3:00 PM) Basophil Auto [0.0-1.0 %] 0.4 % (04/14/24 3:00 PM) BUN [7-18 mg/dL] 16 mg/dL (04/14/24 3:00 PM) Glucose Level [74-106 mg/dL] 95 mg/dL (04/14/24 3:00 PM) Potassium Level [3.5-5.1 mmol/L] 4.2 mmo l/L (04/14/24 3:00 PM) MCV [80.0-96.0 fL] 83.6 fL (04/14/24 3:00 PM) AST [15-37 unit/L] 21 unit/L (04/14/24 3:00 PM) ALT [16-63 unit/L] 41 unit/L (04/14/24 3:00 PM) MCHC [31.0-35.0 g/dL] 33.2 g/dL (04/14/24 3:00 PM) Sodium Level [136-145 mmol/L] 139 mmol/L (04/14/24 3:00 PM) Hct [41.0-51.0 %] 37.3 % *LOW* (04/14/24:00 PM) Calcium Level [8.5-10.1 mg/dL] 9.0 mg/dL (04/14/24 3:00 PM) Albumin Level [3.4-5.0 g/dL] 3.5 g/dL (04/14/24 3:00 PM) Protein Total [6.4-8.2 g/dL] 6.9 g/dL (04/14/24 3:00 PM) MCH [26.0-32.0 pg] 27.8 pg (04/14/24 3:00 PM) Magnesium Level [1.8-2.4 mg/dL] 1.8 mg/d L (04/14/24 3:00 PM) Neutro Absolute 3.2 x10^3/mcL *NA* (04/14/24 3:00 PM) Bilirubin Total [0.2-1.0 mg/dL] 0.4 mg/d L (04/14/24 3:00 PM) Hgb [14.0-18.0 g/dL] 12.4 g/dL *LOW* (04/14/24 3:00 PM) Alk Phos [46-146 unit/L] 147 unit/L *HI* (04/14/24 3:00 PM) Platelets [130-450 x10^3/mcL] 182 x10^3/ mcL (04/14/24 3:00 PM) CO2 [21-32 mmol/L] 29 mmol/L (04/14/24 3:00 PM) TSH [0.358-3.740 mcIntlUnit/mL] 2.912 mc IntlUnit/mL (04/14/24 3:00 PM) eGFR Non-AA [>=60] 76 (04/14/24 3:00 PM) eGFR AA [>=60] 76 (04/14/24 3:00 PM) Chloride Level [98-107 mmol/L] 104 mmol/ L (04/14/24 3:00 PM) RDW-CV [11.5-14.5 %] 13.3 % (04/14/24 3:00 PM) Imm Gran Auto [0.0-0.9 %] 0.6 % (04/14/24 3:00 PM) Creatinine Level [0.70-1.30 mg/dL] 1.11 mg/dL (04/14/24 3:00 PM) Eos, Auto [1.0-6.0 %] 2.8 % (04/14/24 3:00 PM) CK [39-308 unit/L] 77 unit/L (04/14/24 3:00 PM) Social History Social History Type Response Smoking Status Smoking tobacco use: Never tobacco user;Never entered on: 04/20/23 Sex Male Patient Care team information Care Team Personnel Name: Kenia Devine MD Position: Physician Member Role: Informed Provider Address: Address: [address] [place], [address] Name: Veronique Rowan SKIP PIT WORKER Position: No Access Member Role: Nurse Practitioner Address: Address: [address] [facility] [place] [address] Name: Irma Monteiro SKIP PIT WORKER Position: Physician Member Role: Nurse Practitioner Address: Address: [address] [facility] [address] Care Team Related Persons Name: SALO BARBOSA Name: JANET BARBOSA
--- OUTSIDE RECORDS SUMMARY | 2024-07-07 11:41 | XMS_ITS | Continuity of Care Document ---
Author Organization [facility] Address [address] [place] [address] Care Team Providers Care Timber Management Professor Name Role Phone Kenia Devine Primary Care Physician [phone] Encounter [facility] Date(s): 10/09/23 - 10/09/23 [facility] [address] [place] [address] Discharge Disposition: Home or Self Care Attending [...] Plan Future Appointments Diagnostic Tests Pending * Urine Culture 10/09/23 * Vitamin D, 25-OH Total [facility] 10/09/23 Immunizations Given and Recorded Vaccine Date Status [...] NEEDED, # 8.5 g, 7 Refill(s), Pharmacy: [facility], 178, cm, 05/03/23 10:32:00 EDT, Height/Length Dosing, 125.7, kg, 05/03/23 10:32:00 EDT, Weight Dosing Start Date: 07/10/23 Status: Ordered amitriptyline 100 mg oral tablet 100 mg = 1 tab, Oral, every day at bedtime, # 90 tab, 2 Refill(s), Pharmacy: [facility], 178.5, cm, 10/07/23 14:51:00 EST, Height, 117.9, kg, 10/07/23 14:59:00 EST, Weight Dosing Start Date: 10/07/23 Status: Ordered Ativan 1 mg oral tablet 1 mg = 1 tab, Oral, Daily, PRN nausea/vomiting, Use as needed during cyclical vomiting episodes, 1 mg tab every 4 hrs PRN until resolved, # 30 tab, 0 Refill(s), Pharmacy: [facility], 178, cm, 05/03/23 10:32:00 EDT, Height/Length Dosing, 125.7, kg, 05/03/23 10:32:00 EDT, Weight Dosing Start Date: 07/21/23 Status: Ordered capsaicin 0.025% topical cream 1 barrera, Topical, TID, PRN other (see comment), APPLY TO THE AFFECTED AREA(S) NEEDED Start Date: 07/19/22 Status: Ordered EpiPen 2-Flip 0.3 mg injectable kit 0.3 mg =, IM, Once, # 1 EA, 0 Refill(s), Pharmacy: [facility], 177.8, cm, 06/01/22 17:05:00 EDT, Height/Length Dosing, 117.93, kg, 06/01/22 17:05:00 EDT, Weight Dosing Start Date: 06/04/22 Status: Ordered escitalopram 20 mg oral tablet 20 mg = 1 tab, Oral, every morning, # 30 tab, 0 Refill(s), Pharmacy: [facility], 178.43, cm, 08/03/23 8:39:00 EDT, Height, 129, kg, 08/01/23 8:37:00 EDT, Weight Dosing Start Date: 09/24/23 Stop Date: 10/24/23 Status: Ordered haloperidol 2 mg oral tablet 2 mg = 1 tab, Oral, QID, PRN nausea, # 45 tab, 1 Refill(s), 07/30/24 3:50:00 PM CDT, Pharmacy: [facility], 177.8, cm, 07/30/23 7:34:00 EDT, Height/Length Dosing, 121.3, kg, 07/30/23 7:34:00 EDT, Weight Dosing Start Date: 07/30/23 Stop Date: 07/30/24 Status: Ordered haloperidol 2 mg oral tablet 2 mg = 1 tab, Oral, every 6 hr, PRN nausea/vomiting, # 60 tab, 11 Refill(s), 08/01/24 7:57:00 AM CDT, Pharmacy: [facility], 177, cm, 08/01/23 8:37:00 EDT, Height/Length [...] beverages, # 30 cap, 2 Refill(s), Pharmacy: [facility], 178, cm, 10/30/22 13:49:00 EST, Height/Length Dosing, 126,kg, 10/30/22 13:49:00 EST, Weight Dosing Start Date: 11/21/22 Stop Date: 02/19/23 Status: Ordered lisinopril 10 mg oral tablet 1 tab, Oral, Daily, # 90 tab, 3 Refill(s), Pharmacy: [facility], 178, cm, 05/03/23 10:32:00 EDT, Height/Length Dosing, 125.7, kg, 05/03/23 10:32:00 EDT, Weight Dosing Start Date: 06/11/23 Status: Ordered melatonin 3 mg oral tablet 9 mg = 3 tab, Oral, every day at bedtime Start Date: 07/19/22 Status: Ordered metFORMIN 500 mg oral tablet 500 mg = 1 tab, Oral, Daily, with meals, # 90 tab, 1 Refill(s), Pharmacy: [facility], 177, cm, 08/01/23 8:37:00 EDT, Height/Length Dosing, 129, kg, 08/01/23 8:37:00 EDT, Weight Dosing Start Date: 08/21/23 Status: Ordered Metoprolol Succinate ER 50 mg oral tablet, extended release 1 tab, Oral, Daily, # 90 tab, 3 Refill(s), Pharmacy: [facility], 177, cm, 08/01/23 8:37:00 EDT, Height/Length Dosing, 129, kg, 08/01/23 8:37:00 EDT, Weight Dosing Start Date: 08/23/23 Status: Ordered mirtazapine 30 mg oral tablet 30 mg = 1 tab, Oral, every night at bedtime, # 30 tab, 1 Refill(s), Pharmacy: [facility],177, cm, 08/01/23 8:37:00 EDT, Height/Length Dosing, 129, kg, 08/01/23 8:37:00 EDT, Weight Dosing Start Date: 08/25/23 Stop Date: 10/24/23 Status: Ordered omeprazole 40 mg oral delayed release capsule See Instructions, TAKE ONE CAPSULE BY MOUTH EVERY DAY, # 90 cap, 3 Refill(s), Pharmacy: [facility], 178, cm, 12/13/22 13:06:00 EST, Height/Length Dosing, 126, kg, 12/13/22 13:06:00 EST, Weight Dosing Start Date: 02/25/23 Status: Ordered prochlorperazine 10 mg oral tablet 10 mg = 1 tab, Oral, QID, PRN nausea, # 20 tab, 0 Refill(s), Pharmacy: [facility], 177, cm, 08/01/23 8:37:00 EDT, Height/Length Dosing, 129, kg, 08/01/23 8:37:00 EDT, Weight Dosing Start Date: 08/01/23 Status: Ordered risperiDONE 1 mg oral tablet 1 mg = 1 tab, Oral, every night at bedtime, # 30 tab, 2 Refill(s), Pharmacy: [facility], 177, cm, 08/01/23 8:37:00 EDT, Height/Length Dosing, 129, kg, 08/01/23 8:37:00 EDT, Weight Dosing Start Date: 09/03/23 Stop Date: 12/02/23 Status: Ordered Symbicort 80 mcg-4.5 mcg/inh inhalation aerosol 2 puffs, Inhale, BID, # 10.2 g, 5 Refill(s), Pharmacy: [facility], 177.8, cm, 09/22/22 6:14:00 EST, Height/Length [...] Results Laboratory List Name Date Automated Diff 10/09/23 CBC w/ Diff 10/09/23 Comprehensive Metabolic Panel (CMP) 09/17 03/08 Hemoglobin A1c 10/09/23 Urinalysis Microscopic 10/09/23 Urinalysis with Microscopic 10/09/23 Most recent to oldest [Reference Range]: 1 WBC [5.0-10.0 x10^3/mcL] 6.8 x10^3/mcL (10/09/23 2:32 PM) RBC [4.6-6.0 x10^6/mcL] 5.0 x10^6/mcL (10/09/23 2:32 PM) Neutro Auto [40.0-75.0 %] 64.9 % (10/09/23 2:32 PM) Lymph Auto [20.0-50.0 %] 23.4 % (10/09/23 2:32 PM) [place] Auto [2.0-15.0 %] 8.1 % (10/09/23 2:32 PM) Basophil Auto [0.0-1.0 %] 0.6 % (10/09/23 2:32 PM) BUN [7-18 mg/dL] 16 mg/dL (10/09/23 2:32 PM) UA Color Yellow (10/09/23 2:32 PM) UA WBC [0-3] 0-3 (10/09/23 2:32 PM) Glucose Level [74-106 mg/dL] 101 mg/dL (10/09/23 2:32 PM) Potassium Level [3.5-5.1 mmol/L] 3.9 mmo l/L (10/09/23 2:32 PM) MCV [80.0-96.0 fL] 85.3 fL (10/09/23 2:32 PM) UA Urobilinogen Normal (10/09/23 2:32 PM) UA Bili [Negative] Negative (10/09/23 2:32 PM) UA Ketones Negative (10/09/23 2:32 PM) AST [15-37 unit/L] 20 unit/L (10/09/23 2:32 PM) ALT [16-63 unit/L] 31 unit/L (10/09/23 2:32 PM) MCHC [31.0-35.0 g/dL] 32.1 g/dL (10/09/23 2:32 PM) Sodium Level [136-145 mmol/L] 139 mmol/L (10/09/23 2:32 PM) UA RBC [0-2] 0-2 (10/09/23 2:32 PM) UA Leuk Est Negative (10/09/23 2:32 PM) UA Nitrite Negative (10/09/23 2:32 PM) UA Glucose [Negative] Negative (10/09/23 2:32 PM) Hct [41.0-51.0 %] 42.4 % (10/09/23 2:32 PM) UA Bacteria None Seen /HPF (10/09/23 2:32 PM) Calcium Level [8.5-10.1 mg/dL] 9.2 mg/dL (10/09/23 2:32 PM) Albumin Level [3.4-5.0 g/dL] 3.7 g/dL (10/09/23 2:32 PM) Protein Total [6.4-8.2 g/dL] 7.3 g/dL (10/09/23 2:32 PM) UA Protein Negative (10/09/23 2:32 PM) MCH [26.0-32.0 pg] 27.4 pg (10/09/23 2:32 PM) Neutro Absolute 4.4 x10^3/mcL *NA* (10/09/23 2:32 PM) Bilirubin Total [0.2-1.0 mg/dL] 0.6 mg/d L (10/09/23 2:32 PM) Hgb [14.0-18.0 g/dL] 13.6 g/dL *LOW* (10/09/23 2:32 PM) Alk Phos [46-146 unit/L] 144 unit/L (10/09/23 2:32 PM) UA Blood Negative (10/09/23 2:32 PM) UA Mucous Moderate /HPF *ABN* (10/09/23 2:32 PM) UA Spec Grav >=1.030 *NA* (10/09/23 2:32 PM) Platelets [130-450 x10^3/mcL] 193 x10^3/ mcL (10/09/23 2:32 PM) CO2 [21-32 mmol/L] 28 mmol/L (10/09/23 2:32 PM) UA Squam Epithelial [None Seen] None See n (10/09/23 2:32 PM) UA pH 5.5 *NA* (10/09/23 2:32 PM) eGFR Non-AA [>=60] 81 (10/09/23 2:32 PM) eGFR AA [>=60] 81 (10/09/23 2:32 PM) UA Appear Clear (10/09/23 2:32 PM) Hemoglobin A1c [4.0-6.0 %] 6.2 % *HI* (10/09/23 2:32 PM) Chloride Level [98-107 mmol/L] 104 mmol/ L (10/09/23 2:32 PM) RDW-CV [11.5-14.5 %] 13.4 % (10/09/23 2:32 PM) Imm Gran Auto [0.0-0.9 %] 0.6 % (10/09/23 2:32 PM) UA Culture Ind?. Not Indicated (10/09/23 2:32 PM) Creatinine Level [0.70-1.30 mg/dL] 1.06 mg/dL (10/09/23 2:32 PM) Eos, Auto [1.0-6.0 %] 2.4 % (10/09/23 2:32 PM) Social History Social History Type Response Smoking Status Smoking tobacco use: Never tobacco user;Never entered on: 04/20/23 Sex Male Patient Care team information Care Team Personnel Name: Kenia Devine MD Position: Physician Member Role: Informed Provider Address: Address: [address] Name: Veronique Rowan HEALTH INFORMATION CLERK Position: Physician Member Role: Nurse Practitioner Address: Address: [address] [place] [address] [address] Name: Irma Monteiro HEALTH INFORMATION CLERK Position: Physician Member Role: Nurse Practitioner Address: Address: [address] [place] [address] Care Team Related Persons Name: SALO BARBOSA Name: JANET BARBOSA
--- OUTSIDE RECORDS SUMMARY | 2024-07-07 11:41 | XMS_ITS | Continuity of Care Document ---
Author Organization [facility] Address [address] [place] [address] Care Team Providers Care Guest Relations Manager Name Role Phone Kenia Devine Primary Care Physician [phone] Encounter [facility] Date(s): 08/18/23 - 08/18/23 [facility] [address] [place] [address] Encounter Diagnosis Lymphadenopathy(Discharge Diagnosis) - 08/18/23 Discharge Disposition: Home or Self Care Attending [...] NEEDED, # 8.5 g, 7 Refill(s), Pharmacy: [facility], 178, cm, 05/03/23 10:32:00 EDT, Height/Length Dosing, 125.7, kg, 05/03/23 10:32:00 EDT, Weight Dosing Start Date: 07/10/23 Status: Ordered amitriptyline 75 mg oral tablet 75 mg = 1 tab, Oral, Daily, # 90 tab, 3 Refill(s), 07/30/24 3:51:00 PM CDT, Pharmacy: [facility], 177.8, cm, 07/30/23 7:34:00 EDT, Height/Length Dosing, 121.3, kg, 07/30/23 7:34:00 EDT, Weight Dosing Start Date: 07/30/23 Stop Date: 07/30/24 Status: Ordered Ativan 1 mg oral tablet 1 mg = 1 tab, Oral, Daily, PRN nausea/vomiting, Use as needed during cyclical vomiting episodes, 1 mg tab every 4 hrs PRN until resolved, # 30 tab, 0 Refill(s), Pharmacy: [facility], 178, cm, 05/03/23 10:32:00 EDT, Height/Length Dosing, 125.7, kg, 05/03/23 10:32:00 EDT, Weight Dosing Start Date: 07/21/23 Status: Ordered capsaicin 0.025% topical cream 1 barrera, Topical, TID, PRN other (see comment), APPLY TO THE AFFECTED AREA(S) NEEDED Start Date: 07/19/22 Status: Ordered EpiPen 2-Flip 0.3 mg injectable kit 0.3 mg =, IM, Once, # 1 EA, 0 Refill(s), Pharmacy: [facility], 177.8, cm, 06/01/22 17:05:00 EDT, Height/Length Dosing, 117.93, kg, 06/01/22 17:05:00 EDT, Weight Dosing Start Date: 06/04/22 Status: Ordered escitalopram 20 mg oral tablet 20 mg = 1 tab, Oral, every morning, # 30 tab, 2 Refill(s), Pharmacy: [facility], 178, cm,05/03/23 10:32:00 EDT, Height/Length Dosing, 125.7, kg, 05/03/23 10:32:00 EDT, Weight Dosing Start Date: 05/07/23 Stop Date: 08/05/23 Status: Ordered haloperidol 2 mg oral tablet 2 mg = 1 tab, Oral, QID, PRN nausea, # 45 tab, 1 Refill(s), 07/30/24 3:50:00 PM CDT, Pharmacy: [facility], 177.8, cm, 07/30/23 7:34:00 EDT, Height/Length Dosing, 121.3, kg, 07/30/23 7:34:00 EDT, Weight Dosing Start Date: 07/30/23 Stop Date: 07/30/24 Status: Ordered haloperidol 2 mg oral tablet 2 mg = 1 tab, Oral, every 6 hr, PRN nausea/vomiting, # 60 tab, 11 Refill(s), 08/01/24 7:57:00 AM CDT, Pharmacy: [facility], 177, cm, 08/01/23 8:37:00 EDT, Height/Length [...] beverages, # 30 cap, 2 Refill(s), Pharmacy: [facility], 178, cm, 10/30/22 13:49:00 EST, Height/Length Dosing, 126,kg, 10/30/22 13:49:00 EST, Weight Dosing Start Date: 11/21/22 Stop Date: 02/19/23 Status: Ordered lisinopril 10 mg oral tablet 1 tab, Oral, Daily, # 90 tab, 3 Refill(s), Pharmacy: [facility], 178, cm, 05/03/23 10:32:00 EDT, Height/Length Dosing, 125.7, kg, 05/03/23 10:32:00 EDT, Weight Dosing Start Date: 06/11/23 Status: Ordered melatonin 3 mg oral tablet 9 mg = 3 tab, Oral, every day at bedtime Start Date: 07/19/22 Status: Ordered metoprolol succinate 50 mg oral capsule, extended release 50 mg = 1 cap, Oral, Daily, # 90 cap, 3 Refill(s), Pharmacy: [facility], 178, cm, 08/13/22 8:42:00 EDT, Height/Length Dosing, 117.9, kg, 08/13/22 8:42:00 EDT, Weight Dosing Start Date: 09/03/22 Status: Ordered mirtazapine 30 mg oral tablet 30 mg = 1 tab, Oral, every night at bedtime, # 30 tab, 2 Refill(s), Pharmacy: [facility],177.8, cm, 04/20/23 7:11:00 EDT, Height/Length Dosing, 128.37, kg, 04/20/23 7:11:00 EDT, Weight Dosing Start Date: 04/30/23 Stop Date: 07/29/23 Status: Ordered omeprazole 40 mg oral delayed release capsule See Instructions, TAKE ONE CAPSULE BY MOUTH EVERY DAY, # 90 cap, 3 Refill(s), Pharmacy: [facility], 178, cm, 12/13/22 13:06:00 EST, Height/Length Dosing, 126, kg, 12/13/22 13:06:00 EST, Weight Dosing Start Date: 02/25/23 Status: Ordered prochlorperazine 10 mg oral tablet 10 mg = 1 tab, Oral, QID, PRN nausea, # 20 tab, 0 Refill(s), Pharmacy: [facility], 177, cm, 08/01/23 8:37:00 EDT, Height/Length Dosing, 129, kg, 08/01/23 8:37:00 EDT, Weight Dosing Start Date: 08/01/23 Status: Ordered risperiDONE 1 mg oral tablet 1 mg = 1 tab, Oral, every night at bedtime, # 30 tab, 2 Refill(s), Pharmacy: [facility], 178, cm, 05/03/23 10:32:00 EDT, Height/Length Dosing, 125.7, kg, 05/03/23 10:32:00 EDT, Weight Dosing Start Date: 05/07/23 Stop Date: 08/05/23 Status: Ordered Symbicort 80 mcg-4.5 mcg/inh inhalation aerosol 2 puffs, Inhale, BID, # 10.2 g, 5 Refill(s), Pharmacy: [facility], 177.8, cm, 09/22/22 6:14:00 EST, Height/Length [...] Physician Member Role: Informed Provider Address: Address: [address] Name: Veronique Rowan CHAIR INSPECTOR Position: Physician Member Role: Nurse Practitioner Address: Address: [address] [facility] [place] [address] Name: Irma Monteiro CHAIR INSPECTOR Position: Physician Member Role: Nurse Practitioner Address: Address: [address] [place] [address] Care Team Related Persons Name: SALO BARBOSA Name: JANET BARBOSA
--- OUTSIDE RECORDS SUMMARY | 2024-07-07 11:41 | XMS_ITS | Continuity of Care Document ---
Author Organization [facility] Address [address] [place] [address] Care Team Providers Care Glaze Sprayer Name Role Phone Kenia Devine Primary Care Physician Encounter [facility] Date(s): 05/26/23 - 05/26/[address] [address] Encounter Diagnosis Pain in left knee(Discharge Diagnosis) - 05/26/23 Discharge Disposition: Home or Self Care Attending [...] Plan Future Appointments Diagnostic Tests Pending * Tick-Borne Disease Abs Panel, [facility] 05/26/23 * Anti DNA (Double Strand) [facility] 05/26/23 * Lyme Antibody UV 05/26/23 * Rheumatoid Factor [facility] 05/26/23 * Anti Nuclear Ab (SERA), [facility] 05/26/23 Immunizations Given and Recorded Vaccine Date Status [...] rectal suppository 25 mg = 1 supp, MO, every 4 hr, PRN as needed for nausea/vomiting, # 30 supp, 0 Refill(s), Pharmacy: [facility], 178, cm, 09/04/22 7:09:00 EDT, Height/Length Dosing, 119, kg, 09/04/22 7:09:00 EDT, Weight Dosing Start Date: 09/16/22 Status: Ordered Albuterol (Eqv-ProAir HFA) 90 mcg/inh inhalation aerosol 180 mcg 2 puffs, Inhale, every 4 hr, PRN not specified, # 18 g, 0 Refill(s), Pharmacy: [facility]58, 178, cm, 12/13/22 13:06:00 EST, Height/Length Dosing, 126, kg, 12/13/22 13:06:00 EST, Weight Dosing Start Date: 12/16/22 Status: Ordered amitriptyline 25 mg oral tablet 1 tab, Oral, every night at bedtime, # 90 tab, 1 Refill(s), Pharmacy: [facility], 178, cm, 12/13/22 13:06:00 EST, Height/Length [...] resolved, # 30 tab, 0 Refill(s), Pharmacy: [facility], 178, cm, 12/13/22 13:06:00 EST, Height/Length Dosing, 126,... Start Date: 01/27/23 Status: Ordered capsaicin 0.025% topical cream 1 barrera, Topical, TID, PRN other (see comment), APPLY TO THE AFFECTED AREA(S) NEEDED Start Date: 07/19/22 Status: Ordered EpiPen 2-Flip 0.3 mg injectable kit 0.3 mg =, IM, Once, # 1 EA, 0 Refill(s), Pharmacy: [facility], 177.8, cm, 06/01/22 17:05:00 EDT, Height/Length Dosing, 117.93, kg, 06/01/22 17:05:00 EDT, Weight Dosing Start Date: 06/04/22 Status: Ordered escitalopram 20 mg oral tablet 20 mg = 1 tab, Oral, every morning, # 30 tab, 2 Refill(s), Pharmacy: [facility], 178, cm,05/03/23 10:32:00 EDT, Height/Length Dosing, 125.7, kg, 05/03/23 10:32:00 EDT, Weight Dosing Start Date: 05/07/23 Stop Date: 08/05/23 Status: Ordered gabapentin 300 mg oral capsule 600 mg = 2 cap, Oral, BID, 600mg BID, # 60 cap, 0 Refill(s), Pharmacy: [facility], 178, cm, 12/13/22 13:06:00 EST, Height/Length Dosing, 126, kg, 12/13/22 13:06:00 EST, Weight Dosing Start Date: 02/04/23 Status: Ordered haloperidol 1 mg oral tablet See Instructions, 1 tab Oral at onset of cyclical vomiting syndrome, # 30 tab, 0 Refill(s), Pharmacy: [facility], 178, cm, 05/03/23 10:32:00 EDT, Height/Length [...] beverages, # 30 cap, 2 Refill(s), Pharmacy: [facility], 178, cm, 10/30/22 13:49:00 EST, Height/Length Dosing, 126,kg, 10/30/22 13:49:00 EST, Weight Dosing Start Date: 11/21/22 Stop Date: 02/19/23 Status: Ordered lisinopril 10 mg oral tablet 1 tab, Oral, Daily, # 90 tab, 0 Refill(s), Pharmacy: [facility], 178, cm, 03/03/23 16:50:00 EDT, Height/Length Dosing, 128, kg, 03/03/23 16:50:00 EDT, Weight Dosing Start Date: 03/15/23 Status: Ordered melatonin 3 mg oral tablet 9 mg = 3 tab, Oral, every day at bedtime Start Date: 07/19/22 Status: Ordered metoprolol succinate 50 mg oral capsule, extended release 50 mg = 1 cap, Oral, Daily, # 90 cap, 3 Refill(s), Pharmacy: [facility], 178, cm, 08/13/22 8:42:00 EDT, Height/Length Dosing, 117.9, kg, 08/13/22 8:42:00 EDT, Weight Dosing Start Date: 09/03/22 Status: Ordered mirtazapine 30 mg oral tablet 30 mg = 1 tab, Oral, every night at bedtime, # 30 tab, 2 Refill(s), Pharmacy: [facility],177.8, cm, 04/20/23 7:11:00 EDT, Height/Length Dosing, 128.37, kg, 04/20/23 7:11:00 EDT, Weight Dosing Start Date: 04/30/23 Stop Date: 07/29/23 Status: Ordered omeprazole 40 mg oral delayed release capsule See Instructions, TAKE ONE CAPSULE BY MOUTH EVERY DAY, # 90 cap, 3 Refill(s), Pharmacy: [facility], 178, cm, 12/13/22 13:06:00 EST, Height/Length Dosing, 126, kg, 12/13/22 13:06:00 EST, Weight Dosing Start Date: 02/25/23 Status: Ordered risperiDONE 1 mg oral tablet 1 mg = 1 tab, Oral, every night at bedtime, # 30 tab, 2 Refill(s), Pharmacy: [facility], 178, cm, 05/03/23 10:32:00 EDT, Height/Length Dosing, 125.7, kg, 05/03/23 10:32:00 EDT, Weight Dosing Start Date: 05/07/23 Stop Date: 08/05/23 Status: Ordered Symbicort 80 mcg-4.5 mcg/inh inhalation aerosol 2 puffs, Inhale, BID, # 10.2 g, 5 Refill(s), Pharmacy: [facility], 177.8, cm, 09/22/22 6:14:00 EST, Height/Length [...] Physician Member Role: Informed Provider Address: Address: [address] Name: Veronique Rowan [employer]ER [employer] Position: Physician Member Role: Nurse Practitioner Address: Address: [address] Name: Irma Monteiro [employer] Position: Physician Member Role: Nurse Practitioner Address: Address: [address] Care Team Related Persons Name: SALO BARBOSA Name: JANET BARBOSA
--- OUTSIDE RECORDS SUMMARY | 2024-07-07 11:41 | XMS_ITS | Continuity of Care Document ---
Author Organization [facility] Address [address] [place] [address] Care Team Providers Care Electrician Outside Name Role Phone Kenia Devine Primary Care Physician Encounter [facility] Date(s): 07/30/23 - 07/30/23 [facility] [address] [place] [address] Encounter Diagnosis Cyclical vomiting(Discharge Diagnosis) - 07/30/23 Discharge Disposition: Home or Self Care Attending [...] rectal suppository 25 mg = 1 supp, DC, every 4 hr, PRN as needed for nausea/vomiting, # 30 supp, 0 Refill(s), Pharmacy: [facility], 178, cm, 09/04/22 7:09:00 EDT, Height/Length Dosing, 119, kg, 09/04/22 7:09:00 EDT, Weight Dosing Start Date: 09/16/22 Status: Ordered Albuterol (Eqv-ProAir HFA) 90 mcg/inh inhalation aerosol 2 puffs, Inhale, every 4 hr, PRN NEEDED, # 8.5 g, 7 Refill(s), Pharmacy: [facility], 178, cm, 05/03/23 10:32:00 EDT, Height/Length Dosing, 125.7, kg, 05/03/23 10:32:00 EDT, Weight Dosing Start Date: 07/10/23 Status: Ordered amitriptyline 25 mg oral tablet 1 tab, Oral, every night at bedtime, # 90 tab, 2 Refill(s), Pharmacy: [facility], 178, cm, 05/03/23 10:32:00 EDT, Height/Length Dosing, 125.7, kg, 05/03/23 10:32:00 EDT, Weight Dosing Start Date: 07/10/23 Status: Ordered amitriptyline 75 mg oral tablet 75 mg = 1 tab, Oral, Daily, # 90 tab, 3 Refill(s), 07/30/24 3:51:00 PM CDT, Pharmacy: [facility], 177.8, cm, 07/30/23 7:34:00 EDT, Height/Length Dosing, 121.3, kg, 07/30/23 7:34:00 EDT, Weight Dosing Start Date: 07/30/23 Stop Date: 07/30/24 Status: Ordered Ativan 1 mg oral tablet 1 mg = 1 tab, Oral, Daily, PRN nausea/vomiting, Use as needed during cyclical vomiting episodes, 1 mg tab every 4 hrs PRN until resolved, # 30 tab, 0 Refill(s), Pharmacy: [facility], 178, cm, 05/03/23 10:32:00 EDT, Height/Length Dosing, 125.7, kg, 05/03/23 10:32:00 EDT, Weight Dosing Start Date: 07/21/23 Status: Ordered capsaicin 0.025% topical cream 1 barrera, Topical, TID, PRN other (see comment), APPLY TO THE AFFECTED AREA(S) NEEDED Start Date: 07/19/22 Status: Ordered EpiPen 2-Flip 0.3 mg injectable kit 0.3 mg =, IM, Once, # 1 EA, 0 Refill(s), Pharmacy: [facility], 177.8, cm, 06/01/22 17:05:00 EDT, Height/Length Dosing, 117.93, kg, 06/01/22 17:05:00 EDT, Weight Dosing Start Date: 06/04/22 Status: Ordered escitalopram 20 mg oral tablet 20 mg = 1 tab, Oral, every morning, # 30 tab, 2 Refill(s), Pharmacy: [facility], 178, cm,05/03/23 10:32:00 EDT, Height/Length Dosing, 125.7, kg, 05/03/23 10:32:00 EDT, Weight Dosing Start Date: 05/07/23 Stop Date: 08/05/23 Status: Ordered gabapentin 300 mg oral capsule 600 mg = 2 cap, Oral, BID, 600mg BID, # 60 cap, 0 Refill(s), Pharmacy: [facility], 178, cm, 12/13/22 13:06:00 EST, Height/Length Dosing, 126, kg, 12/13/22 13:06:00 EST, Weight Dosing Start Date: 02/04/23 Status: Ordered haloperidol 1 mg oral tablet See Instructions, 1 tab Oral at onset of cyclical vomiting syndrome, # 30 tab, 0 Refill(s), Pharmacy: [facility], 178, cm, 05/03/23 10:32:00 EDT, Height/Length Dosing, 125.7, kg, 05/03/23 10:32:00 EDT, Weight Dosing Start Date: 07/21/23 Status: Ordered haloperidol 2 mg oral tablet 2 mg = 1 tab, Oral, QID, PRN nausea, # 45 tab, 1 Refill(s), 07/30/24 3:50:00 PM CDT, Pharmacy: [facility], 177.8, cm, 07/30/23 7:34:00 EDT, Height/Length Dosing, 121.3, kg, 07/30/23 7:34:00 EDT, Weight Dosing Start Date: 07/30/23 Stop Date: 07/30/24 Status: Ordered ibuprofen 800 mg oral tablet 800 mg = 1 tab, Oral, every 8 hr, PRN other (see comment), as needed Start Date: 05/01/22 Status: Ordered lactobacillus acidophilus-lactobacillus rhamnosus oral capsule 1 cap, Oral, Daily, contents of capsule can be sprinkled into cold food or beverages, # 30 cap, 2 Refill(s), Pharmacy: [facility], 178, cm, 10/30/22 13:49:00 EST, Height/Length Dosing, 126,kg, 10/30/22 13:49:00 EST, Weight Dosing Start Date: 11/21/22 Stop Date: 02/19/23 Status: Ordered lisinopril 10 mg oral tablet 1 tab, Oral, Daily, # 90 tab, 3 Refill(s), Pharmacy: [facility], 178, cm, 05/03/23 10:32:00 EDT, Height/Length Dosing, 125.7, kg, 05/03/23 10:32:00 EDT, Weight Dosing Start Date: 06/11/23 Status: Ordered melatonin 3 mg oral tablet 9 mg = 3 tab, Oral, every day at bedtime Start Date: 07/19/22 Status: Ordered meloxicam 15 mg oral tablet 15 mg = 1 tab, Oral, Daily, PRN pain, moderate, # 30 tab, 2 Refill(s), Pharmacy: [facility], 178, cm, 05/03/23 10:32:00 EDT, Height/Length Dosing, 125.7, kg, 05/03/23 10:32:00 EDT, Weight Dosing Start Date: 06/09/23 Status: Ordered metoprolol succinate 50 mg oral capsule, extended release 50 mg = 1 cap, Oral, Daily, # 90 cap, 3 Refill(s), Pharmacy: [facility], 178, cm, 08/13/22 8:42:00 EDT, Height/Length Dosing, 117.9, kg, 08/13/22 8:42:00 EDT, Weight Dosing Start Date: 09/03/22 Status: Ordered mirtazapine 30 mg oral tablet 30 mg = 1 tab, Oral, every night at bedtime, # 30 tab, 2 Refill(s), Pharmacy: [facility],177.8, cm, 04/20/23 7:11:00 EDT, Height/Length Dosing, 128.37, kg, 04/20/23 7:11:00 EDT, Weight Dosing Start Date: 04/30/23 Stop Date: 07/29/23 Status: Ordered omeprazole 40 mg oral delayed release capsule See Instructions, TAKE ONE CAPSULE BY MOUTH EVERY DAY, # 90 cap, 3 Refill(s), Pharmacy: [facility], 178, cm, 12/13/22 13:06:00 EST, Height/Length Dosing, 126, kg, 12/13/22 13:06:00 EST, Weight Dosing Start Date: 02/25/23 Status: Ordered risperiDONE 1 mg oral tablet 1 mg = 1 tab, Oral, every night at bedtime, # 30 tab, 2 Refill(s), Pharmacy: [facility], 178, cm, 05/03/23 10:32:00 EDT, Height/Length Dosing, 125.7, kg, 05/03/23 10:32:00 EDT, Weight Dosing Start Date: 05/07/23 Stop Date: 08/05/23 Status: Ordered Symbicort 80 mcg-4.5 mcg/inh inhalation aerosol 2 puffs, Inhale, BID, # 10.2 g, 5 Refill(s), Pharmacy: [facility], 177.8, cm, 09/22/22 6:14:00 EST, Height/Length [...] gastric polyposis Results Laboratory List Name Date .Manual Differential ([facility]CTY) 07/30/23 Basic Metabolic Panel 07/30/23 CBC w/ Diff 07/30/23 Most recent to oldest [Reference Range]: 1 WBC [5.0-10.0 x10^3/mcL] 8.5 x10^3/mcL (07/30/23 7:51 AM) RBC [4.6-6.0 x10^6/mcL] 5.2 x10^6/mcL (07/30/23 7:51 AM) Segs Man [40-75 %] 84 % *HI* (07/30/23 7:51 AM) Lymph Man [20-50 %] 13 % *LOW* (07/30/23 7:51 AM) [place] Man [2-15 %] 3 % (07/30/23 7:51 AM) Eos Man [1-6 %] 0 % *LOW* (07/30/23 7:51 AM) BUN [7-18 mg/dL] 13 mg/dL (07/30/23 7:51 AM) Glucose Level [74-106 mg/dL] 183 mg/dL *HI* (07/30/23 7:51 AM) Potassium Level [3.5-5.1 mmol/L] 3.5 mmo l/L (07/30/23 7:51 AM) MCV [80.0-96.0 fL] 81.6 fL (07/30/23 7:51 AM) RBC Morph Normal (07/30/23 7:51 AM) MCHC [31.0-35.0 g/dL] 34.0 g/dL (07/30/23 7:51 AM) Sodium Level [136-145 mmol/L] 137 mmol/L (07/30/23 7:51 AM) Hct [41.0-51.0 %] 42.1 % (07/30/23 7:51 AM) Calcium Level [8.5-10.1 mg/dL] 8.8 mg/dL (07/30/23 7:51 AM) MCH [26.0-32.0 pg] 27.7 pg (07/30/23 7:51 AM) Hgb [14.0-18.0 g/dL] 14.3 g/dL (07/30/23 7:51 AM) Band Man [0-5 %] 0 % (07/30/23 7:51 AM) Platelets [130-450 x10^3/mcL] 208 x10^3/ mcL (07/30/23 7:51 AM) CO2 [21-32 mmol/L] 26 mmol/L (07/30/23 7:51 AM) eGFR Non-AA [>=60] 88 (07/30/23 7:51 AM) eGFR AA [>=60] 88 (07/30/23 7:51 AM) Chloride Level [98-107 mmol/L] 99 mmol/L (07/30/23 7:51 AM) RDW-CV [11.5-14.5 %] 13.1 % (07/30/23 7:51 AM) Slide Review Man Diff (07/30/23 7:51 AM) Creatinine Level [0.70-1.30 mg/dL] 0.99 mg/dL (07/30/23 7:51 AM) Baso Man [0-1 %] 0 % (07/30/23 7:51 AM) Vital Signs Most recent to oldest [Reference Range]: 1 2 3 Temperature Temporal Artery [36-38 Deg C] 35.6 Deg C *LOW* (07/30/23 7:20 AM) Peripheral Pulse Rate [60-100 bpm] 99 bpm (07/30/23 2:00 PM) 93 bpm (07/30/23 12:21 PM) 88 bpm (07/30/23 10:00 AM) Heart Rate Monitored [60-100 bpm] 99 bpm (07/30/23 10:42 AM) 90 bpm (07/30/23 10:00 AM) 107 bpm *HI* (07/30/23 9:30 AM) Respiratory Rate [12-24 br/min] 25 br/min *HI* (07/30/23 9:30 AM) 27 br/min *HI* (07/30/23 9:00 AM) 28 br/min *HI* (07/30/23 8:50 AM) Blood Pressure [90-140/60-90 mmHg] 186/109mmHg *HI* (07/30/23 10:42 AM) 183/114mmHg *HI* (07/30/23 9:00 AM) 173/102mmHg *HI* (07/30/23 8:50 AM) Weight 121.30 kg (07/30/23 7:20 AM) Weight Dosing 121.30 kg (07/30/23 7:34 AM) Height 177.800 cm (07/30/23 7:20 AM) Height/Length Dosing 177.800 cm (07/30/23 7:34 AM) Body Mass Index 38.000 kg/m2 (07/30/23 7:20 AM) Social History Social History Type Response Smoking Status Smoking tobacco use: Never tobacco user;Never entered on: 04/20/23 Sex Male Hospital Discharge Instructions Patient Education 07/30/2023 15:51:52 Cyclic Vomiting Syndrome, Adult Cyclic Vomiting Syndrome, [...] ??? Antihistamines. ??? Medicines for migraines. ??? Fmnk-kop-wtvsgcs pain medicine. ??? Over-the counter diet supplements. Severe nausea and vomiting may require you to stay at the hospital. You may need IV fluids to prevent or treat dehydration. Follow these instructions at home: During an episode ??? Take ragi-qpc-fhksojy and prescription medicines only as told by [...] avoid spicy or fatty foods, such as american fries and pizza. General instructions ??? Monitor [...] provider. Document Revised: 06/11/2022 Document Reviewed: 06/11/2022 [email or web address] Patient Education ?? 2022 [employer] Follow Up Care 07/30/2023 07:20:02 With:Follow up with primary care provider Address: When:1 to 2 weeks Emergency department Discharge instructions * Loli Mead MD: PERFORM Event Display: ED Discharge Information Authored Date: [id number] EUGENIA KNOWLES :1965 Age:58 years Sex:Male Visit Date:07/30/2023 Primary Care Physician: Kenia Devine MD Discharge Instructions We would like to thank you for allowing us to assist you with your healthcare needs. The following includes patient education materials and information regarding your injury/illness. Diagnosis from Today's Visit Cyclical vomiting Discharge Vitals Temperature??(Temporal Artery) 96.1 ??F (35.6 ??C) Heart Rate??(Peripheral) 99 Respiratory Rate?? 25 Blood Pressure?? 186/109?? Height?? 70.00 in (177.800 cm) Weight?? 267.47 lb (121.30 kg) BMI?? 38.000 Allergies PEANUT??(Anaphylaxis) EGG??(Vomiting) FISH CONTAINING PRODUCTS??(Vomiting) HOUSE DUST MITE MOLD TREE NUT??(Anaphylactic reaction) acetaminophen-hydrocodone??(Vomiting) hydroCHLOROthiazide metoclopramide??(Urticaria) What to Do Next Instructions from Your Care Team You may take Haldol??(haloperidol) 2 mg every 6 hours as needed??when you have onset of your cyclical vomiting.?? Increase your Elavil (amitriptyline) to 75 mg/day.?? If you worsen return to the emergency department. You Need to Schedule the Following Appointments [...] How Much When Why Instructions Next Dose Changed amitriptyline (amitriptyline 25 mg oral tablet) 1 tab Oral (given by mouth) Every night at bedtime Changed amitriptyline (amitriptyline 75 mg oral tablet) 1 tab Oral (given by mouth) Every day Cyclical vomiting Pickup at [facility] Changed haloperidol (haloperidol 1 mg oral tablet) See instructions 1 tab Oral at onset of cyclical vomiting syndrome ?? Changed haloperidol (haloperidol 2 mg oral tablet) 1 tab Oral (given by mouth) 4 times a day as needed for nausea Cyclical vomiting Pickup at [facility] Unchanged albuterol (Albuterol (Eqv-ProAir HFA) 90 mcg/ inh inhalation aerosol) 2 Puffs Inhale (breathe in) Every 4 hours as needed for NEEDED Unchanged budesonide-formoterol (Symbicort 80 mcg-4.5 mcg/ inh [...] recurrent, mild Duration: 30 Days Pharmacy Information [facility]: [address] [place], [place] [id number] [phone] Education Materials Cyclic Vomiting Syndrome, Adult Cyclic [...] ? Antihistamines. ? Medicines for migraines. ? Vbly-qas-acobqop pain medicine. ? Over-the counter diet supplements. Severe nausea and vomiting may require you to stay at the hospital. You may need IV fluids to prevent or treat dehydration. Follow these instructions at home: During an episode ? Take blcp-vzg-trydljf and prescription medicines only as told by [...] avoid spicy or fatty foods, such as american fries and pizza. General instructions ? Monitor [...] provider. Document Revised: 06/11/2022 Document Reviewed: 06/11/2022 [email or web address] Patient Education ?? 2022 [employer] Tests Performed Medications and Immunizations Administered Given NS with potassium chloride 20 mEq/L, 1000 mL, IV NS with potassium chloride 20 mEq/L, 1000 mL, IV 0.9% NaCl bolus, 1000 mL, IV Bolus Ativan, 1 mg, IV Push Ativan, 1 mg, IV Push Ativan, 1 mg, IV Push Benadryl, 50 mg, IV Push haloperidol, 2 mg, Slow IV Push prochlorperazine, 10 mg, IV Push Lab Test Name Test Result Date/Time WBC 8.5 x10^3/mcL 07/30/2023 07:51 EDT RBC 5.2 x10^6/mcL 07/30/2023 07:51 EDT Hgb 14.3 g/dL 07/30/2023 07:51 EDT Hct 42.1 % 07/30/2023 07:51 EDT MCV 81.6 fL 07/30/2023 07:51 EDT MCH 27.7 pg 07/30/2023 07:51 EDT MCHC 34.0 g/dL 07/30/2023 07:51 EDT RDW-CV 13.1 % 07/30/2023 07:51 EDT Platelets 208 x10^3/mcL 07/30/2023 07:51 EDT Segs Man 84 % 07/30/2023 07:51 EDT Lymph Man 13 % 07/30/2023 07:51 EDT [place] Man 3 % 07/30/2023 07:51 EDT Eos Man 0 % 07/30/2023 07:51 EDT Baso Man 0 % 07/30/2023 07:51 EDT Band Man 0 % 07/30/2023 07:51 EDT RBC Morph Normal 07/30/2023 07:51 EDT Slide Review Man Diff 07/30/2023 07:51 EDT Sodium Level 137 mmol/L 07/30/2023 07:51 EDT Potassium Level 3.5 mmol/L 07/30/2023 07:51 EDT Chloride Level 99 mmol/L 07/30/2023 07:51 EDT CO2 26 mmol/L 07/30/2023 07:51 EDT BUN 13 mg/dL 07/30/2023 07:51 EDT Glucose Level 183 mg/dL 07/30/2023 07:51 EDT Creatinine Level 0.99 mg/dL 07/30/2023 07:51 EDT eGFR AA 88 07/30/2023 07:51 EDT eGFR Non-AA 88 07/30/2023 07:51 EDT Calcium Level 8.8 mg/dL 07/30/2023 07:51 EDT Patient/Television Service Engineer Signature Patient Name:EUGENIA KNOWLES I have received this information and my questions have been answered. Patient/Television Service Engineer Name: Patient/Television Service Engineer Signature: Relationship to Patient: Witness Name/Signature: Date: Electronically Signed on: 07/30/2023 16:53 EDTSigned by:[facility] Emergency department Note * Valentine Rg: PERFORM Event Display: ED Notes Authored Date: [id number] Patient Care team information Care Team Personnel Name: Kenia Devine MD Position: Physician Member Role: Informed Provider Address: Address: [address] Name: Veronique Rowan ADJUNCT PROFESSOR OF ENGLISH Position: Physician Member Role: Nurse Practitioner Address: Address: [address] [address] Name: Irma Monteiro ADJUNCT PROFESSOR OF ENGLISH Position: Physician Member Role: Nurse Practitioner Address: Address: [address] [place] [address] Name: William Mondragon RN Position: Nurse Member Role: ED Nurse Name: Mandi Ordonez Position: Nurse Member Role: ED Nurse Name: Loli Mead MD Position: Physician Member Role: Attending Physician Address: Address: [address] [address] Care Team Related Persons Name: SALO BARBOSA Name: JANET BARBOSA
--- OUTSIDE RECORDS SUMMARY | 2024-07-07 11:41 | XMS_ITS | Continuity of Care Document ---
Author Organization [facility] Address [address] [place] [address] Care Team Providers Care Vice President Quality Name Role Phone Kenia Devine Primary Care Physician [phone] Encounter [facility]_[place] Date(s): 03/18/24 - 03/18/24 [facility] [address] [place] [address] Discharge Disposition: Home or Self Care Attending [...] Total [facility] 02/03/24 * Hemoglobin A1c 10/27/23 Immunizations Given and [...] NEEDED, # 8.5 g, 7 Refill(s), Pharmacy: [facility], 178, cm, 05/03/23 10:32:00 EDT, Height/Length Dosing, 125.7, kg, 05/03/23 10:32:00 EDT, Weight Dosing Start Date: 07/10/23 Status: Ordered alfuzosin 10 mg oral tablet, extended release 10 mg = 1 tab, Oral, Daily, # 90 tab, 3 Refill(s), Pharmacy: [facility], 178.5, cm, 10/07/23 14:51:00 EST, Height, 116.95, kg, 11/04/23 14:29:00 EST, Weight Dosing Start Date: 11/25/23 Stop Date: 11/19/24 Status: Ordered amitriptyline 100 mg oral tablet 100 mg = 1 tab, Oral, every day at bedtime, # 90 tab, 2 Refill(s), Pharmacy: [facility], 178.5, cm, 10/07/23 14:51:00 EST, Height, 117.9, kg, 10/07/23 14:59:00 EST, Weight Dosing Start Date: 10/07/23 Status: Ordered Ativan 1 mg oral tablet 1 mg = 1 tab, Oral, Daily, PRN nausea/vomiting, Use as needed during cyclical vomiting episodes, 1 mg tab every 4 hrs PRN until resolved, # 30 tab, 0 Refill(s), Pharmacy: [facility], 178, cm, 05/03/23 10:32:00 EDT, Height/Length Dosing, 125.7, kg, 05/03/23 10:32:00 EDT, Weight Dosing Start Date: 07/21/23 Status: Ordered capsaicin 0.025% topical cream 1 barrera, Topical, TID, PRN other (see comment), APPLY TO THE AFFECTED AREA(S) NEEDED Start Date: 07/19/22 Status: Ordered EPINEPHrine 0.3 mg injectable kit See Instructions, INJECT INTRAMUSCULARLY ONCE, # 2 mL, 0 Refill(s), Pharmacy: [facility],178, cm, 12/30/23 15:35:00 EST, Height, 155.62, kg, 12/30/23 15:38:00 EST, Weight Dosing Start Date: 01/13/24 Status: Ordered escitalopram 20 mg oral tablet 20 mg = 1 tab, Oral, every morning, # 30 tab, 3 Refill(s), Pharmacy: [facility], 178, cm,12/30/23 15:35:00 EST, Height, 115.75, kg, 01/27/24 8:32:00 EDT, Weight Dosing Start Date: 01/27/24 Stop Date: 05/26/24 Status: Ordered haloperidol 2 mg oral tablet 2 mg = 1 tab, Oral, every 6 hr, PRN nausea/vomiting, # 60 tab, 11 Refill(s), 08/01/24 7:57:00 AM CDT, Pharmacy: [facility], 177, cm, 08/01/23 8:37:00 EDT, Height/Length Dosing, 129, kg, 08/01/23 8:37:00 EDT, Weight Dosing Start Date: 08/01/23 Stop Date: 08/01/24 Status: Ordered ibuprofen 800 mg oral tablet 800 mg = 1 tab, Oral, every 8 hr, PRN other (see comment), as needed Start Date: 05/01/22 Status: Ordered lisinopril 10 mg oral tablet 1 tab, Oral, Daily, # 90 tab, 3 Refill(s), Pharmacy: [facility], 178, cm, 05/03/23 10:32:00 EDT, Height/Length Dosing, 125.7, kg, 05/03/23 10:32:00 EDT, Weight Dosing Start Date: 06/11/23 Status: Ordered melatonin 3 mg oral tablet 9 mg = 3 tab, Oral, every day at bedtime Start Date: 07/19/22 Status: Ordered metFORMIN 500 mg oral tablet 1 tab, Oral, BID w/Meals, # 90 tab, 1 Refill(s), Pharmacy: [facility], 178, cm, 12/30/23 15:35:00 EST, Height, 116.75, kg, 02/03/24 12:42:00 EDT, Weight Dosing Start Date: 02/09/24 Status: Ordered Metoprolol Succinate ER 50 mg oral tablet, extended release 1 tab, Oral, Daily, # 90 tab, 3 Refill(s), Pharmacy: [facility], 177, cm, 08/01/23 8:37:00 EDT, Height/Length Dosing, 129, kg, 08/01/23 8:37:00 EDT, Weight Dosing Start Date: 08/23/23 Status: Ordered mirtazapine 30 mg oral tablet 30 mg = 1 tab, Oral, every night at bedtime, # 30 tab, 3 Refill(s), Pharmacy: [facility],178, cm, 12/30/23 15:35:00 EST, Height, 115.75, kg, 01/27/24 8:32:00 EDT, Weight Dosing Start Date: 01/27/24 Stop Date: 05/26/24 Status: Ordered omeprazole 40 mg oral delayed release capsule 1 cap, Oral, Daily, # 90 cap, 3 Refill(s), Pharmacy: [facility], 178, cm, 12/30/23 15:35:00 EST, Height, 116.75, kg, 02/03/24 12:42:00 EDT, Weight Dosing Start Date: 02/16/24 Status: Ordered prochlorperazine 10 mg oral tablet 10 mg = 1 tab, Oral, QID, PRN nausea, # 20 tab, 0 Refill(s), Pharmacy: [facility], 177, cm, 08/01/23 8:37:00 EDT, Height/Length Dosing, 129, kg, 08/01/23 8:37:00 EDT, Weight Dosing Start Date: 08/01/23 Status: Ordered risperiDONE 1 mg oral tablet 1.5 mg = 1.5 tab, Oral, every night at bedtime, # 45 tab, 3 Refill(s), Pharmacy: [facility], 178, cm, 12/30/23 15:35:00 EST, Height, 115.75, kg, 01/27/24 8:32:00 EDT, Weight Dosing Start Date: 01/27/24 Stop Date: 05/26/24 Status: Ordered Symbicort 80 mcg-4.5 mcg/inh inhalation aerosol 2 puffs, Inhale, BID, # 10.2 g, 5 Refill(s), Pharmacy: [facility], 177.8, cm, 09/22/22 6:14:00 EST, Height/Length [...] Results Laboratory List Name Date Automated Diff 03/18/24 CBC w/ Diff 03/18/24 Comprehensive Metabolic Panel 03/18/24 Most recent to oldest [Reference Range]: 1 WBC [5.0-10.0 x10^3/mcL] 6.4 x10^3/mcL (03/18/24 3:20 PM) RBC [4.6-6.0 x10^6/mcL] 4.5 x10^6/mcL *LOW* (03/18/24 3:20 PM) Neutro Auto [40.0-75.0 %] 66.8 % (03/18/24 3:20 PM) Lymph Auto [20.0-50.0 %] 22.5 % (03/18/24 3:20 PM) Lyon Auto [2.0-15.0 %] 7.9 % (03/18/24 3:20 PM) Basophil Auto [0.0-1.0 %] 0.5 % (03/18/24 3:20 PM) BUN [7-18 mg/dL] 15 mg/dL (03/18/24 3:20 PM) Glucose Level [74-106 mg/dL] 88 mg/dL (03/18/24 3:20 PM) Potassium Level [3.5-5.1 mmol/L] 4.1 mmo l/L (03/18/24 3:20 PM) MCV [80.0-96.0 fL] 83.0 fL (03/18/24 3:20 PM) AST [15-37 unit/L] 28 unit/L (03/18/24 3:20 PM) ALT [16-63 unit/L] 51 unit/L (03/18/24 3:20 PM) MCHC [31.0-35.0 g/dL] 33.2 g/dL (03/18/24 3:20 PM) Sodium Level [136-145 mmol/L] 136 mmol/L (03/18/24 3:20 PM) Hct [41.0-51.0 %] 37.6 % *LOW* (03/18/24 3:20 PM) Calcium Level [8.5-10.1 mg/dL] 8.9 mg/dL (03/18/24 3:20 PM) Albumin Level [3.4-5.0 g/dL] 3.6 g/dL (03/18/24 3:20 PM) Protein Total [6.4-8.2 g/dL] 7.1 g/dL (03/18/24 3:20 PM) MCH [26.0-32.0 pg] 27.6 pg (03/18/24 3:20 PM) Neutro Absolute 4.2 x10^3/mcL *NA* (03/18/24 3:20 PM) Bilirubin Total [0.2-1.0 mg/dL] 0.7 mg/d L (03/18/24 3:20 PM) Hgb [14.0-18.0 g/dL] 12.5 g/dL *LOW* (03/18/24 3:20 PM) Alk Phos [46-146 unit/L] 163 unit/L *HI* (03/18/24 3:20 PM) Platelets [130-450 x10^3/mcL] 187 x10^3/ mcL (03/18/24 3:20 PM) CO2 [21-32 mmol/L] 30 mmol/L (03/18/24 3:20 PM) eGFR Non-AA [>=60] 79 (03/18/24 3:20 PM) eGFR AA [>=60] 79 (03/18/24 3:20 PM) Chloride Level [98-107 mmol/L] 100 mmol/ L (03/18/24 3:20 PM) RDW-CV [11.5-14.5 %] 13.2 % (03/18/24 3:20 PM) Imm Gran Auto [0.0-0.9 %] 0.6 % (03/18/24 3:20 PM) Creatinine Level [0.70-1.30 mg/dL] 1.08 mg/dL (03/18/24 3:20 PM) Eos, Auto [1.0-6.0 %] 1.7 % (03/18/24 3:20 PM) Orders for Microbiology Reports Name Date Urine Culture 03/18/24 Microbiology Reports TEST:Urine Culture STATUS:Order in Progress BODY SITE: SOURCE:Urine, Clean Catch COLLECTED DATE/TIME:03/18/24 12:30 PM PRELIMINARY REPORT No growth at 24 hours. Social History Social History Type Response Smoking Status Smoking tobacco use: Never tobacco user;Never entered on: 04/20/23 Sex Male Patient Care team information Care Team Personnel Name: Kenia Devine MD Position: Physician Member Role: Informed Provider Address: Address: [address] [place] [address] Name: Veronique Rowan MAIL MANAGER Position: No Access Member Role: Nurse Practitioner Address: Address: [address] [facility] [place] [address] Name: Irma Monteiro MAIL MANAGER Position: Physician Member Role: Nurse Practitioner Address: Address: [address] [place] [address] Care Team Related Persons Name: SALO BARBOSA Name: JANET BARBOSA
--- OUTSIDE RECORDS SUMMARY | 2024-07-07 11:41 | XMS_ITS | Continuity of Care Document ---
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 Name Role Phone Kenia Devine Primary Care Physician [phone] Encounter [facility] Date(s): 08/13/22 - 08/13/[address] [phone] [place] Encounter Diagnosis Cyclic vomiting syndrome(Discharge Diagnosis) - 08/13/22 Cyclical vomiting syndrome unrelated to migraine(Final) - Discharge Disposition: Home Attending Physician: Georges Escalante MD Admitting Physician: [...] Assessment and Plan Future Appointments Functional Status 08/13/22 Family Member Travel History No recent t cristianel Recent Travel History No recent travel Other [...] rectal suppository 25 mg = 1 supp, [place], every 4 hr, PRN as needed for nausea/vomiting, # 12 supp, 0 Refill(s), Pharmacy: [facility] #58, 178, cm, 06/27/22 6:14:00 EDT, Height/Length Dosing, 118.85, kg, 06/27/22 6:14:00 EDT, Weight Dosing Start Date: 06/27/22 Status: Ordered !-Zofran ODT 4 mg oral tablet, disintegrating 4 mg = 1 tab, Oral, Once, PRN as needed for nausea/vomiting, # 20 tab, 0 Refill(s), Pharmacy: [facility] #58, 178, cm, 08/13/22 8:42:00 EDT, Height/Length Dosing, 117.9, kg, 08/13/22 8:42:00 EDT, Weight Dosing Start Date: 08/13/22 Status: Ordered Albuterol (Eqv-ProAir HFA) 90 mcg/inh inhalation aerosol 180 mcg 2 puffs, Inhale, every 4 hr, PRN not specified, # 18 g, 0 Refill(s), Pharmacy: [facility] #58, 177, cm, 06/07/22 17:11:00 EDT, Height/Length Dosing, 119, kg, 06/07/22 17:11:00 EDT, Weight Dosing Start Date: 06/16/22 Status: Ordered amitriptyline 25 mg oral tablet 25 mg = 1 tab, Oral, every night at bedtime, # 90 tab, 1 Refill(s), Pharmacy: [facility] #58,177.8, cm, 07/08/22 7:12:00 EDT, Height/Length Dosing, 117.93, kg, 07/08/22 7:12:00 EDT, Weight Dosing Start Date: 07/16/22 Status: Ordered amLODIPine 10 mg oral tablet 10 mg = 1 tab, Oral, Daily Start Date: 05/01/22 Status: Ordered aprepitant 80 mg oral capsule 80 mg = 1 cap, Oral, every morning, # 30 cap, 0 Refill(s), Pharmacy: [facility] #58, 177.8, cm, 07/08/22 7:12:00 EDT, Height/Length Dosing, 117.93, kg, 07/08/22 7:12:00 EDT, Weight Dosing Start Date: 07/10/22 Status: Ordered baclofen 10 mg oral tablet 10 mg = 1 tab, Oral, TID, PRN other (see comment), as needed, # 21 tab, 0 Refill(s), Pharmacy: [facility] #58, 177.8, cm, 04/12/22 11:32:00 EDT, Height/Length Dosing, 117, kg, 04/12/22 11:32:00EDT, Weight Dosing Start Date: 05/26/22 Status: Ordered capsaicin 0.025% topical cream 1 barrera, Topical, TID, PRN other (see comment), APPLY TO THE AFFECTED AREA(S) NEEDED Start Date: 07/19/22 Status: Ordered Carafate 1 g oral tablet 1 g = 1 tab, Oral, BID, # 20 cap, 0 Refill(s), Pharmacy: [facility] #58, 178, cm, 08/13/22 8:42:00 EDT, [...] Once, # 1 EA, 0 Refill(s), Pharmacy: [facility] #58, 177.8, cm, 06/01/22 17:05:00 EDT, Height/Length Dosing, 117.93, kg, 06/01/22 17:05:00 EDT, Weight Dosing Start Date: 06/04/22 Status: Ordered escitalopram 20 mg oral tablet 20 mg = 1 tab, Oral, every morning, # 30 tab, 2 Refill(s), Pharmacy: [facility] #58, 178, cm,08/12/22 6:44:00 EDT, Height/Length Dosing, 117.9, kg, 08/12/22 6:44:00 EDT, Weight Dosing Start Date: 08/12/22 Stop Date: 11/10/22 Status: Ordered theodora oral capsule See Instructions, take 1 tablet on tongue at onset of nausea. Repeat every 6 hours as needed, # 20 tab, 0 Refill(s), Pharmacy: [facility] #58, 178, cm, 08/13/22 8:42:00 EDT, [...] Daily, # 90 cap, 0 Refill(s), Pharmacy: [facility] #58, 177.8, cm, 06/01/22 17:05:00 EDT, [...] bedtime, # 30 tab, 2 Refill(s), Pharmacy: [facility] #58,178, cm, 08/12/22 6:44:00 EDT, Height/Length [...] nausea, # 25 tab, 0 Refill(s), Pharmacy: [facility] #58, 177.8, cm, 06/01/22 17:05:00 EDT, Height/Length Dosing, 117.93, kg, 06/01/22 17:05:00 EDT, Weight Dosing Start Date: 06/02/22 Status: Ordered prochlorperazine 10 mg oral tablet 10 mg = 1 tab, Oral, QID, # 28 tab, 0 Refill(s), Pharmacy: [facility] #58, 178, cm, 08/11/22 6:40:00 EDT, Height/Length Dosing, 117.9, kg, 08/11/22 6:40:00 EDT, Weight Dosing Start Date: 08/11/22 Status: Ordered risperiDONE 1 mg oral tablet 1 mg = 1 tab, Oral, every night at bedtime, # 30 tab, 2 Refill(s), Pharmacy: [facility] #58, 178, cm, 08/12/22 6:44:00 EDT, [...] Most recent to oldest [Reference Range]: 1 Temperature Temporal Artery [36-38 Deg C ] 35.7 Deg C *LOW* (08/13/22 8:36 AM) Peripheral Pulse Rate [60-100 bpm] 107 b pm *HI* (08/13/22 8:36 AM) Blood Pressure [90-140/60-90 mmHg] 158/1 06mmHg *HI* (08/13/22 8:36 AM) Weight Dosing 117.90 kg (08/13/22 8:42 AM) Weight Estimated 117.90 kg (08/13/22 8:36 AM) Height/Length Dosing 178.000 cm (08/13/22 8:42 AM) Height/Length Estimated 178.000 cm (08/13/22 8:36 AM) Social History Social History Type Response Smoking Status Never; Smoking tobac co use: Never tobacco user entered on: 06/16/22 Sex Male Hospital Discharge Instructions Patient Education 08/13/2022 07:52:20 Cyclic Vomiting Syndrome, Adult Cyclic Vomiting Syndrome, [...] meals. ??? Taking medicines, such as: ??? Xqqt-nvk-mhaiipi pain medicine. ??? Anti-nausea medicines. ??? Antacids. ??? Antihistamines. ??? Medicines for migraines. ??? Antidepressants. ??? Antibiotics. Severe nausea and vomiting may require you to stay at the hospital. You may need IV fluids to prevent or treat dehydration. Follow these instructions at home: During an episode ??? Take asko-bcw-eydetqo and prescription medicines only as told by [...] avoid spicy or fatty foods, such as egyptian fries and pizza. General instructions ??? Monitor [...] provider. Document Revised: 01/22/2022 Document Reviewed: 10/03/2021 [employer] Patient Education ?? 2021 [employer] Follow Up Care 08/13/2022 08:36:33 With:Follow up with primary care provider Address: When:1 to 2 days Comments:You been seen in the emergency department and no emergent medical condition has been identified. ??It is recommended that you follow-up with your primary care provider within the next??48 hours. ??Ifyour condition worsens or you are unable to??arrange for appropriate follow-up please??reach out tothe emergency department by phone or return to the emergency department for repeat evaluation. Patient Care team information Personnel Name: Kenia Devine MD Address: Address: [facility] [place], [place] [address]
--- OUTSIDE RECORDS SUMMARY | 2024-07-07 11:41 | XMS_ITS | Continuity of Care Document ---
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 Test Result Date/Time WBC 7.7 x10^3/mcL 12/04/2023 11:35 EST RBC 5.1 x10^6/mcL 12/04/2023 11:35 EST Hgb 14.2 g/dL 12/04/2023 11:35 EST Hct 41.5 % 12/04/2023 11:35 EST MCV 80.9 fL 12/04/2023 11:35 EST MCH 27.7 pg 12/04/2023 11:35 EST MCHC 34.2 g/dL 12/04/2023 11:35 EST RDW-CV 13.3 % 12/04/2023 11:35 EST Platelets 175 x10^3/mcL 12/04/2023 11:35 EST Segs Man 94 % 12/04/2023 11:35 EST Lymph Man 3 % 12/04/2023 11:35 EST Red [place]ow Man 1 % 12/04/2023 11:35 EST Eos Man 0 % 12/04/2023 11:35 EST Baso Man 0 % 12/04/2023 11:35 EST Band Man 0 % 12/04/2023 11:35 EST Abs Neut Man 7.2 x10^3/mcL 12/04/2023 11:35 EST RBC Morph Abnormal 12/04/2023 11:35 EST Immature Cells 2 12/04/2023 11:35 EST Microcyte Rare 12/04/2023 11:35 EST Ovalocytes Rare 12/04/2023 11:35 EST Poik Rare 12/04/2023 11:35 EST Slide Review Man Diff 12/04/2023 11:35 EST Sodium Level 141 mmol/L 12/04/2023 11:35 EST Potassium Level 3.8 mmol/L 12/04/2023 11:35 EST Chloride Level 103 mmol/L 12/04/2023 11:35 EST CO2 22 mmol/L 12/04/2023 11:35 EST Alk Phos 125 unit/L 12/04/2023 11:35 EST AST 21 unit/L 12/04/2023 11:35 EST ALT 38 unit/L 12/04/2023 11:35 EST BUN 26 mg/dL 12/04/2023 11:35 EST Glucose Level 184 mg/dL 12/04/2023 11:35 EST Creatinine Level 1.09 mg/dL 12/04/2023 11:35 EST eGFR AA 78 12/04/2023 11:35 EST eGFR Non-AA 78 12/04/2023 11:35 EST Calcium Level 9.0 mg/dL 12/04/2023 11:35 EST Protein Total 7.7 g/dL 12/04/2023 11:35 EST Albumin Level 3.8 g/dL 12/04/2023 11:35 EST Bilirubin Total 1.7 mg/dL 12/04/2023 11:35 EST Lipase Level 14 unit/L 12/04/2023 11:35 EST Patient/Gas Engine Operator Compressors Signature Patient Name:EUGENIA KNOWLES I have received this information and my questions have been answered. Patient/Gas Engine Operator Compressors Name: Patient/Gas Engine Operator [employer] Signature: Relationship to Patient: Witness Name/Signature: Date: Electronically Signed on: 12/04/2023 13:04 ESTSigned by:MRB Discharge summary * Magali Sarah: PERFORM Event Display: Discharge Note Authored Date: * Magali Sarah: PERFORM Event Display: Discharge Note Authored Date: Diagnosis: Vomiting Comment: Electronically Signed on 12/04/23 02:32 PM Magali Sarah Patient Care team information Care Team Personnel Name: Kenia Devine MD Position: Physician Member Role: Informed Provider Address: Address: [facility] [address] Name: Veronique Rowan SUPERVISOR WET POUR Position: Physician Member Role: Nurse Practitioner Address: Address: [address] Name: Irma Monteiro SUPERVISOR WET POUR Position: Physician Member Role: Nurse Practitioner Address: Address: [address] Care Team Related Persons Name: SALO BARBOSA Name: JANET BARBOSA
--- OUTSIDE RECORDS SUMMARY | 2024-07-07 11:41 | XMS_ITS | Continuity of Care Document ---
Author Organization [facility] Address [address] [place] [address] Care Team Providers Care Property Man Name Role Phone Kenia Devine Primary Care Physician Encounter REPLACED BY [facility] Date(s): 11/21/22 - 11/21/22 [facility] [address] [place] [address] Encounter Diagnosis Obstructive sleep apnea, adult(Discharge Diagnosis) - 11/21/22 Discharge Disposition: Home or Self Care Attending Physician: Irma Monteiro MILLED LUMBER GRADER Attending Physician: Irma Monteiro MILLED LUMBER GRADER Allergies, Adverse Reactions, Alerts Substance Reaction Severity [...] MRI MRCP w/o Contrast 09/16/22 Functional Status 11/21/22 Other exposure to Infectious Disease Non e [...] rectal suppository 25 mg = 1 supp, CO, every 4 hr, PRN as needed for nausea/vomiting, # 30 supp, 0 Refill(s), Pharmacy: [facility] #58, 178, cm, 09/04/22 7:09:00 EDT, Height/Length Dosing, 119, kg, 09/04/22 7:09:00 EDT, Weight Dosing Start Date: 09/16/22 Status: Ordered !-Zofran ODT 4 mg oral tablet, disintegrating 4 mg = 1 tab, Oral, every 8 hr, PRN as needed for nausea/vomiting, # 20 tab, 0 Refill(s), Pharmacy:[facility] #58, 178, cm, 08/13/22 8:42:00 EDT, Height/Length Dosing, 117.9, kg, 08/13/22 8:42:00 EDT, Weight Dosing Start Date: 08/14/22 Status: Ordered Albuterol (Eqv-ProAir HFA) 90 mcg/inh inhalation aerosol 180 mcg 2 puffs, Inhale, every 4 hr, PRN not specified, # 18 g, 0 Refill(s), Pharmacy: [facility] #58, 177, cm, 06/07/22 17:11:00 EDT, Height/Length Dosing, 119, kg, 06/07/22 17:11:00 EDT, Weight Dosing Start Date: 06/16/22 Status: Ordered amitriptyline 25 mg oral tablet 25 mg = 1 tab, Oral, every night at bedtime, # 90 tab, 1 Refill(s), Pharmacy: [facility] #58,177.8, cm, 07/08/22 7:12:00 EDT, Height/Length Dosing, [...] Once, # 1 EA, 0 Refill(s), Pharmacy: [facility] #58, 177.8, cm, 06/01/22 17:05:00 EDT, Height/Length Dosing, 117.93, kg, 06/01/22 17:05:00 EDT, Weight Dosing Start Date: 06/04/22 Status: Ordered escitalopram 20 mg oral tablet 20 mg = 1 tab, Oral, every morning, # 30 tab, 2 Refill(s), Pharmacy: [facility] #58, 178, cm,10/30/22 13:49:00 EST, Height/Length Dosing, 126, kg, 10/30/22 13:49:00 EST, Weight Dosing Start Date: 11/21/22 Stop Date: 02/19/23 Status: Ordered gabapentin 100 mg oral capsule 200 mg = 2 cap, Oral, TID, # 180 cap, 0 Refill(s), Pharmacy: [facility] #58, 177.8, cm, 09/22/22 6:14:00 EST, Height/Length Dosing, 123.83, kg, 09/22/22 6:14:00 EST, Weight Dosing Start Date: 10/06/22 Status: Ordered theodora oral capsule See Instructions, take 1 tablet on tongue at onset of nausea. Repeat every 6 hours as needed, # 20 tab, 0 Refill(s), Pharmacy: [facility] #58, 178, cm, 08/13/22 8:42:00 EDT, Height/Length [...] beverages, # 30 cap, 2 Refill(s), Pharmacy: [facility] #58, 178, cm, 10/30/22 13:49:00 EST, Height/Length Dosing, 126,kg, 10/30/22 13:49:00 EST, Weight Dosing Start Date: 11/21/22 Stop Date: 02/19/23 Status: Ordered melatonin 3 mg oral tablet 9 mg = 3 tab, Oral, every day at bedtime Start Date: 07/19/22 Status: Ordered metoprolol succinate 50 mg oral capsule, extended release 50 mg = 1 cap, Oral, Daily, # 90 cap, 3 Refill(s), Pharmacy: [facility] #58, 178, cm, 08/13/22 8:42:00 EDT, Height/Length [...] bedtime, # 30 tab, 2 Refill(s), Pharmacy: [facility] #58,178, cm, 10/30/22 13:49:00 EST, Height/Length Dosing, 126, kg, 10/30/22 13:49:00 EST, Weight Dosing Start Date: 11/21/22 Stop Date: 02/19/23 Status: Ordered omeprazole 40 mg oral delayed release capsule 40 mg = 1 cap, Oral, Daily Start Date: 05/01/22 Status: Ordered risperiDONE 1 mg oral tablet 1 mg = 1 tab, Oral, every night at bedtime, # 30 tab, 2 Refill(s), Pharmacy: [facility] #58, 178, cm, 10/30/22 13:49:00 EST, Height/Length Dosing, 126, kg, 10/30/22 13:49:00 EST, Weight Dosing Start Date: 11/21/22 Stop Date: 02/19/23 Status: Ordered Symbicort 80 mcg-4.5 mcg/inh inhalation aerosol 2 puffs, Inhale, BID, # 10.2 g, 5 Refill(s), Pharmacy: [facility] #58, 177.8, cm, 09/22/22 6:14:00 EST, Height/Length Dosing, 123.83, kg, 09/22/22 6:14:00 EST, Weight Dosing Start Date: 10/10/22 Status: Ordered traMADol 50 mg oral tablet 25 mg = 0.5 tab, Oral, every 6 hr, PRN as needed for pain, # 8 tab, 0 Refill(s), Pharmacy: [facility] #58, 177.8, cm, 09/22/22 6:14:00 EST, Height/Length [...] Range]: 1 Peripheral Pulse Rate [60-100 bpm] 96 bp m (11/21/22 9:53 AM) Blood Pressure [90-140/60-90 mmHg] 136/9 1mmHg (11/21/22 9:53 AM) Weight 127.01 kg (11/21/22 9:53 AM) Weight Measured (lbs) 280.009 lb (11/21/22 9:53 AM) Height 178 cm (11/21/22 9:53 AM) Height/Length Measured (inches) 70.08 in ch (11/21/22 9:53 AM) BSA Measured 2.51 m2 (11/21/22 9:53 AM) Body Mass Index 40.09 kg/m2 (11/21/22 9:53 AM) Social History Social History Type Response Smoking Status Never; Smoking tobac co use: Never tobacco user entered on: 06/16/22 Sex Male Progress note * Devaughn Brock M: PERFORM Event Display: Progress Note - Physician Authored Date: [id number] Physician Outpatient Note * Irma Monteiro MILLED LUMBER GRADER: PERFORM Event Display: Office Clinic Note Physician Authored Date: [id number] EUGENIA GARCIA :1965 Age:57 years Sex:Male Visit Date:11/21/2022 Primary Care Physician: Kenia Devine MD History of Present Illness Eugenia Garcia??has a visit for??CARLOS follow-up. Eugenia was seen by me on??08/01/2022. He has a medical history to include [...] copay was too high. Last visit he continued to have loud snoring, daytime sleepiness (ESS 15), witnessed apnea, and nocturia 6-7/night. I ordered CPAP??8-18 cm. ?? Eugenia says things are going pretty well for most part. He uses it QHS, he is using a large fullface mask and he is not aware of any leaking. He has not changed the cushion. The air pressure feels good, it is not waking him up. He is getting to bed around 8 pm and wakes at 11pm-12 am and is wide awake for an hour. He gets up at 5 am. He is not sure if he is snoring. He is only getting up 0-2/night to urinate now. He feels more alert and has less daytime sleepiness. He is familiar with themaintenance of his CPAP. ?? ESS today 02/06 COMPLIANCE DATA REVIEWED WITH PATIENT: Dates 10/15/22-11/13/22,??Days used?, average use??7 hours, 9 minutes,??median pressure 13.7??cm,??95 th percentile pressure??17 cm,??95 th percentile air leak 34.8??lpm, AHI 12/hr Physical Exam Vitals & Measurements HR:??96??(Peripheral)?? BP:??136/91?? SpO2:??98%?? HT:??178??cm?? WT:??127.01??kg?? BMI:??40.09?? BSA:??2.51?? GENERAL: answers questions appropriately, well groomed, obese. HEAD: normocephalic and atraumatic. EYES: non icteric LUNGS: CTA all voss. Good air movement throughout. CARDIO: RRR without murmur, gallop or thrill. NEURO: alert and oriented, normal gait. PYSCH: normal mood and affect. CUTANEOUS: no overt lesions or rashes.?? Assessment/Plan Obstructive sleep apnea, adult??G47.33 CARLOS diagnosed in 2020 with an AHI of 78.7/hr. He recently started on CPAP??8-18 cm. He has great compliance and AHI is reduced to 12/hr with most events reported as obstructive and his median pressure is 13.7 cm. I set CPAP to 13-20 cm today and requested a one month compliance. He has a high air leak noted on download (he is not aware of this) and has not changed his cushion in three months. He is advised to change it monthly. He gets some dry mouth and was not aware how to adjust the humiditylevel so I showed him this today. He had significant improvement in his nocturia and daytime sleepiness with CPAP (ESS down to 3 from 15) and continued use of CPAP is recommended. He is advised to keep up with the routine maintenance of the machine and to clean/replace parts as needed. I will see him back in six months. He is asked to call our office for any sleep related questions or concerns. I provided greater than 30 minutes in the care of this patient, more than half the time was spent in [id number] counseling. Orders: Follow-Up Appointment Request VAISHALI, *Est. 05/21/23 +/- 28 days, Future Order, In [facility] CC: Charlene Problem List/Past Medical History Ongoing Adult attention [...] (06/10/2019)???EGD (05/12/2019)???Hydrocelectomy???Repair of right inguinal hernia Medications !-Phenergan 25 mg rectal suppository, 25 mg= 1 supp, CO, every 4 hr, PRN !-Zofran ODT 4 mg oral tablet, disintegrating, 4 mg= 1 tab, Oral, every 8 hr, PRN Albuterol (Eqv-ProAir HFA) 90 mcg/inh inhalation aerosol, 180 mcg= 2 puffs, Inhale, every 4 hr, PRN amitriptyline 25 mg oral tablet, 25 mg= 1 tab, Oral, every night at bedtime, 1 refills capsaicin 0.025% topical cream, 1 barrera, Topical, TID, PRN Claritin 10 mg oral tablet, 10 mg= 1 tab, Oral, Daily EpiPen 2-Flip 0.3 mg injectable kit, 0.3 mg, IM, Once escitalopram 20 mg oral tablet, 20 mg= 1 tab, Oral, every morning gabapentin 100 mg oral capsule, 200 mg= 2 cap, Oral, TID theodora oral capsule, See Instructions ibuprofen 800 mg oral tablet, 800 mg= 1 tab, Oral, every 8 hr, PRN melatonin 3 mg oral tablet, 9 mg= 3 tab, Oral, every night at bedtime metoprolol succinate 50 mg oral capsule, extended release, 50 mg= 1 cap, Oral, Daily, 3 refills MiraLax oral powder for reconstitution, 17 g, Oral, Daily, PRN mirtazapine 30 mg oral tablet, 30 mg= 1 tab, Oral, every night at bedtime omeprazole 40 mg oral delayed release capsule, 40 mg= 1 cap, Oral, Daily risperiDONE 1 mg oral tablet, 1 mg= 1 tab, Oral, every night at bedtime Symbicort 80 mcg-4.5 mcg/inh inhalation aerosol, 2 puffs, Inhale, BID, 5 refills traMADol 50 mg oral tablet, 25 mg= 0.5 tab, Oral, every 6 hr, PRN Allergies PEANUT??(Anaphylaxis) EGG??(Vomiting) FISH CONTAINING PRODUCTS??(Vomiting) HOUSE DUST MITE MOLD TREE NUT??(Anaphylactic reaction) acetaminophen-hydrocodone??(Vomiting) hydroCHLOROthiazide metoclopramide??(Urticaria) Social History Alcohol Never Electronic Cigarette/Vaping Electronic Cigarette Use: Never. 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 Home/Environment Lives with Alone. Nutrition/Health Diet: Regular. [...] virus vaccine, inactivated Recorded Electronically Signed on 11/21/22 10:15 AM Irma Monteiro MILLED LUMBER GRADER Patient Care team information Personnel Name: Kenia Devine MD Address: Address: [place], [place] [address] [place] [address]
--- OUTSIDE RECORDS SUMMARY | 2024-07-07 11:41 | XMS_ITS | Continuity of Care Document ---
Author Organization [facility] Address [address] [place] [address] Care Team Providers Care Eyedotter Name Role Phone Kenia Devine Primary Care Physician Encounter [facility] Date(s): 02/03/24 - 02/03/24 [facility] [address] [place] [address] Discharge Disposition: Home or Self Care Attending [...] Plan Future Appointments Diagnostic Tests Pending * Hemoglobin A1c 02/03/24 * MMRV Immune Status Profile, [place] 02/03/24 Future Scheduled Tests Laboratory* Vitamin D, 25-OH [...] NEEDED, # 8.5 g, 7 Refill(s), Pharmacy: [facility] #58, 178, cm, 05/03/23 10:32:00 EDT, Height/Length Dosing, 125.7, kg, 05/03/23 10:32:00 EDT, Weight Dosing Start Date: 07/10/23 Status: Ordered alfuzosin 10 mg oral tablet, extended release 10 mg = 1 tab, Oral, Daily, # 90 tab, 3 Refill(s), Pharmacy: [facility] #58, 178.5, cm, 10/07/23 14:51:00 EST, Height, 116.95, kg, 11/04/23 14:29:00 EST, Weight Dosing Start Date: 11/25/23 Stop Date: 11/19/24 Status: Ordered amitriptyline 100 mg oral tablet 100 mg = 1 tab, Oral, every day at bedtime, # 90 tab, 2 Refill(s), Pharmacy: [facility] #58, 178.5, cm, 10/07/23 14:51:00 EST, Height, 117.9, kg, 10/07/23 14:59:00 EST, Weight Dosing Start Date: 10/07/23 Status: Ordered Ativan 1 mg oral tablet 1 mg = 1 tab, Oral, Daily, PRN nausea/vomiting, Use as needed during cyclical vomiting episodes, 1 mg tab every 4 hrs PRN until resolved, # 30 tab, 0 Refill(s), Pharmacy: [facility] #58, 178, cm, 05/03/23 10:32:00 EDT, Height/Length Dosing, 125.7, kg, 05/03/23 10:32:00 EDT, Weight Dosing Start Date: 07/21/23 Status: Ordered capsaicin 0.025% topical cream 1 barrera, Topical, TID, PRN other (see comment), APPLY TO THE AFFECTED AREA(S) NEEDED Start Date: 07/19/22 Status: Ordered EPINEPHrine 0.3 mg injectable kit See Instructions, INJECT INTRAMUSCULARLY ONCE, # 2 mL, 0 Refill(s), Pharmacy: [facility] #58,178, cm, 12/30/23 15:35:00 EST, Height, 155.62, kg, 12/30/23 15:38:00 EST, Weight Dosing Start Date: 01/13/24 Status: Ordered escitalopram 20 mg oral tablet 20 mg = 1 tab, Oral, every morning, # 30 tab, 3 Refill(s), Pharmacy: [facility] #58, 178, cm,12/30/23 15:35:00 EST, Height, 115.75, kg, 01/27/24 8:32:00 EDT, Weight Dosing Start Date: 01/27/24 Stop Date: 05/26/24 Status: Ordered haloperidol 2 mg oral tablet 2 mg = 1 tab, Oral, every 6 hr, PRN nausea/vomiting, # 60 tab, 11 Refill(s), 08/01/24 7:57:00 AM CDT, Pharmacy: [facility] #58, 177, cm, 08/01/23 8:37:00 EDT, Height/Length Dosing, 129, kg, 08/01/23 8:37:00 EDT, Weight Dosing Start Date: 08/01/23 Stop Date: 08/01/24 Status: Ordered ibuprofen 800 mg oral tablet 800 mg = 1 tab, Oral, every 8 hr, PRN other (see comment), as needed Start Date: 05/01/22 Status: Ordered lisinopril 10 mg oral tablet 1 tab, Oral, Daily, # 90 tab, 3 Refill(s), Pharmacy: [facility] #58, 178, cm, 05/03/23 10:32:00 EDT, Height/Length Dosing, 125.7, kg, 05/03/23 10:32:00 EDT, Weight Dosing Start Date: 06/11/23 Status: Ordered melatonin 3 mg oral tablet 9 mg = 3 tab, Oral, every day at bedtime Start Date: 07/19/22 Status: Ordered metFORMIN 500 mg oral tablet 1 tab, Oral, BID w/Meals, # 90 tab, 1 Refill(s), Pharmacy: [facility] #58, 178, cm, 12/30/23 15:35:00 EST, Height, 115.75, kg, 01/27/24 8:32:00 EDT, Weight Dosing Start Date: 01/31/24 Status: Ordered Metoprolol Succinate ER 50 mg oral tablet, extended release 1 tab, Oral, Daily, # 90 tab, 3 Refill(s), Pharmacy: [facility] #58, 177, cm, 08/01/23 8:37:00 EDT, Height/Length Dosing, 129, kg, 08/01/23 8:37:00 EDT, Weight Dosing Start Date: 08/23/23 Status: Ordered mirtazapine 30 mg oral tablet 30 mg = 1 tab, Oral, every night at bedtime, # 30 tab, 3 Refill(s), Pharmacy: [facility] #58,178, cm, 12/30/23 15:35:00 EST, Height, 115.75, kg, 01/27/24 8:32:00 EDT, Weight Dosing Start Date: 01/27/24 Stop Date: 05/26/24 Status: Ordered omeprazole 40 mg oral delayed release capsule See Instructions, TAKE ONE CAPSULE BY MOUTH EVERY DAY, # 90 cap, 3 Refill(s), Pharmacy: [facility] #58, 178, cm, 12/13/22 13:06:00 EST, Height/Length Dosing, 126, kg, 12/13/22 13:06:00 EST, Weight Dosing Start Date: 02/25/23 Status: Ordered prochlorperazine 10 mg oral tablet 10 mg = 1 tab, Oral, QID, PRN nausea, # 20 tab, 0 Refill(s), Pharmacy: [facility] #58, 177, cm, 08/01/23 8:37:00 EDT, Height/Length Dosing, 129, kg, 08/01/23 8:37:00 EDT, Weight Dosing Start Date: 08/01/23 Status: Ordered risperiDONE 1 mg oral tablet 1.5 mg = 1.5 tab, Oral, every night at bedtime, # 45 tab, 3 Refill(s), Pharmacy: [facility] #58, 178, cm, 12/30/23 15:35:00 EST, Height, 115.75, kg, 01/27/24 8:32:00 EDT, Weight Dosing Start Date: 01/27/24 Stop Date: 05/26/24 Status: Ordered Symbicort 80 mcg-4.5 mcg/inh inhalation aerosol 2 puffs, Inhale, BID, # 10.2 g, 5 Refill(s), Pharmacy: [facility] #58, 177.8, cm, 09/22/22 6:14:00 EST, Height/Length [...] gastric polyposis Results Laboratory List Name Date Comprehensive Metabolic Panel (CMP) 02/02 Vitamin D, 25-OH Total [facility] 02/03/24 Most recent to oldest [Reference Range]: 1 BUN [7-18 mg/dL] 18 mg/dL (02/03/24 1:23 PM) Glucose Level [74-106 mg/dL] 97 mg/dL (02/03/24 1:23 PM) Potassium Level [3.5-5.1 mmol/L] 3.8 mmo l/L (02/03/24 1:23 PM) AST [15-37 unit/L] 27 unit/L (02/03/24 1:23 PM) ALT [16-63 unit/L] 50 unit/L (02/03/24 1:23 PM) Sodium Level [136-145 mmol/L] 140 mmol/L (02/03/24 1:23 PM) Calcium Level [8.5-10.1 mg/dL] 9.0 mg/dL (02/03/24 1:23 PM) Albumin Level [3.4-5.0 g/dL] 3.5 g/dL (02/03/24 1:23 PM) Protein Total [6.4-8.2 g/dL] 7.4 g/dL (02/03/24 1:23 PM) Bilirubin Total [0.2-1.0 mg/dL] 0.9 mg/d L (02/03/24 1:23 PM) Alk Phos [46-146 unit/L] 141 unit/L (02/03/24 1:23 PM) CO2 [21-32 mmol/L] 27 mmol/L (02/03/24 1:23 PM) eGFR Non-AA [>=60] 88 (02/03/24 1:23 PM) eGFR AA [>=60] 88 (02/03/24 1:23 PM) Chloride Level [98-107 mmol/L] 104 mmol/ L (02/03/24 1:23 PM) Creatinine Level [0.70-1.30 mg/dL] 0.99 mg/dL (02/03/24 1:23 PM) Vitamin D, 25-OH, Total [facility] [30-100 ng/m L] 36 ng/mL 1 *NA* (02/03/24 1:23 PM) 1Result Comment: Vitamin D 25,OH Interpretive Ranges: Deficiency: <10.0 ng/mL Insufficiency: 10.0 - 30.0 ng/mL Sufficiency: 30.0 - 100.0 ng/mL Toxicity: >100.0 ng/mL Test performed [place] [address] Social History Social History Type Response Smoking Status Smoking tobacco use: Never tobacco user;Never entered on: 04/20/23 Sex Male Patient Care team information Care Team Personnel Name: Kenia Devine MD Position: Physician Member Role: Informed Provider Address: Address: [address] [place] [address] [address] Name: Veronique Rowan SALES DEVELOPMENT SPECIALIST Position: No Access Member Role: Nurse Practitioner Address: Address: [address] [facility] [place] [address] Name: Irma Monteiro SALES DEVELOPMENT SPECIALIST Position: Physician Member Role: Nurse Practitioner Address: Address: [address] [facility] [address] Care Team Related Persons Name: SALO BARBOSA Name: JANET BARBOSA
--- OUTSIDE RECORDS SUMMARY | 2024-07-07 11:41 | XMS_ITS | Continuity of Care Document ---
Author Organization [facility] Address [address] [place] [address] Care Team Providers Care Salvationist Name Role Phone Kenia Devine Primary Care Physician [facility] Date[facility]s): 12/13/22 - 12/13/22 [facility] [address] [place] [address] Encounter Diagnosis Cyclical vomiting(Discharge Diagnosis) - 12/13/22 Discharge Disposition: Home or Self Care Attending [...] Active 1laryngeal spasm 2fatal(deprecated) Assessment and Plan Extracted from: Title:Clinical Document Author:Magali Sarah te:12/13/22 Diagnosis: 1. Cyclical vomit ing Comment: Diagnosis: Vomiting Comment: Future Appointments Future Scheduled Tests Radiology* MRI MRCP w/o Contrast 09/16/22 Functional Status 12/13/22 Other exposure to Infectious Disease Non e [...] nausea/vomiting, # 30 supp, 0 Refill(s), Pharmacy: [facility], 178, cm, 09/04/22 7:09:00 EDT, Height/Length Dosing, 119, kg, 09/04/22 7:09:00 EDT, Weight Dosing Start Date: 09/16/22 Status: Ordered !-Zofran ODT 4 mg oral tablet, disintegrating 4 mg = 1 tab, Oral, every 8 hr, PRN as needed for nausea/vomiting, # 20 tab, 0 Refill(s), Pharmacy:[facility], 178, cm, 08/13/22 8:42:00 EDT, Height/Length Dosing, 117.9, kg, 08/13/22 8:42:00 EDT, Weight Dosing Start Date: 08/14/22 Status: Ordered Albuterol (Eqv-ProAir HFA) 90 mcg/inh inhalation aerosol 180 mcg 2 puffs, Inhale, every 4 hr, PRN not specified, # 18 g, 0 Refill(s), Pharmacy: [facility], 177, cm, 06/07/22 17:11:00 EDT, Height/Length Dosing, 119, kg, 06/07/22 17:11:00 EDT, Weight Dosing Start Date: 06/16/22 Status: Ordered amitriptyline 25 mg oral tablet 25 mg = 1 tab, Oral, every night at bedtime, # 90 tab, 1 Refill(s), Pharmacy: [facility],177.8, cm, 07/08/22 7:12:00 EDT, Height/Length Dosing, [...] Once, # 1 EA, 0 Refill(s), Pharmacy: [facility], 177.8, cm, 06/01/22 17:05:00 EDT, Height/Length Dosing, 117.93, kg, 06/01/22 17:05:00 EDT, Weight Dosing Start Date: 06/04/22 Status: Ordered escitalopram 20 mg oral tablet 20 mg = 1 tab, Oral, every morning, # 30 tab, 2 Refill(s), Pharmacy: [facility], 178, cm,10/30/22 13:49:00 EST, Height/Length Dosing, 126, kg, 10/30/22 13:49:00 EST, Weight Dosing Start Date: 11/21/22 Stop Date: 02/19/23 Status: Ordered gabapentin 100 mg oral capsule 200 mg = 2 cap, Oral, TID, # 180 cap, 0 Refill(s), Pharmacy: [facility], 177.8, cm, 09/22/22 6:14:00 EST, Height/Length Dosing, 123.83, kg, 09/22/22 6:14:00 EST, Weight Dosing Start Date: 10/06/22 Status: Ordered theodora oral capsule See Instructions, take 1 tablet on tongue at onset of nausea. Repeat every 6 hours as needed, # 20 tab, 0 Refill(s), Pharmacy: [facility], 178, cm, 08/13/22 8:42:00 EDT, Height/Length [...] beverages, # 30 cap, 2 Refill(s), Pharmacy: [facility], 178, cm, 10/30/22 13:49:00 EST, Height/Length Dosing, 126,kg, 10/30/22 13:49:00 EST, Weight Dosing Start Date: 11/21/22 Stop Date: 02/19/23 Status: Ordered melatonin 3 mg oral tablet 9 mg = 3 tab, Oral, every day at bedtime Start Date: 07/19/22 Status: Ordered METOPROLOL SUCC ER 50 MG TAB METOPROLOL SUCC ER 50 MG TAB, TAKE ONE TABLET BY MOUTH EVERY DAY Start Date: 12/13/22 Status: Ordered metoprolol succinate 50 mg oral capsule, extended release 50 mg = 1 cap, Oral, Daily, # 90 cap, 3 Refill(s), Pharmacy: [facility], 178, cm, 08/13/22 8:42:00 EDT, Height/Length [...] bedtime, # 30 tab, 2 Refill(s), Pharmacy: [facility],178, cm, 10/30/22 13:49:00 EST, Height/Length Dosing, 126, kg, 10/30/22 13:49:00 EST, Weight Dosing Start Date: 11/21/22 Stop Date: 02/19/23 Status: Ordered omeprazole 40 mg oral delayed release capsule 40 mg = 1 cap, Oral, Daily Start Date: 05/01/22 Status: Ordered risperiDONE 1 mg oral tablet 1 mg = 1 tab, Oral, every night at bedtime, # 30 tab, 2 Refill(s), Pharmacy: [facility], 178, cm, 10/30/22 13:49:00 EST, Height/Length Dosing, 126, kg, 10/30/22 13:49:00 EST, Weight Dosing Start Date: 11/21/22 Stop Date: 02/19/23 Status: Ordered sucralfate 1 g oral tablet TAKE ONE TABLET BY MOUTH TWICE A DAY Start Date: 12/13/22 Status: Ordered Symbicort 80 mcg-4.5 mcg/inh inhalation aerosol 2 puffs, Inhale, BID, # 10.2 g, 5 Refill(s), Pharmacy: [facility], 177.8, cm, 09/22/22 6:14:00 EST, Height/Length Dosing, 123.83, kg, 09/22/22 6:14:00 EST, Weight Dosing Start Date: 10/10/22 Status: Ordered traMADol 50 mg oral tablet 25 mg = 0.5 tab, Oral, every 6 hr, PRN as needed for pain, # 8 tab, 0 Refill(s), Pharmacy: [facility], 177.8, cm, 09/22/22 6:14:00 EST, Height/Length Dosing, 123.83, kg, 09/22/22 6:14:00 EST, Weight Dosing Start Date: 10/30/22 Stop Date: 11/04/22 Status: Ordered Problem List Condition Confirmation Course Effective Dates Status H ealth Status Informant Adult attention deficit hyperactivity disorder Confirmed 06/28/21 Active Allergic rhinitis Confirmed Active Cholelithiasis Confirmed Active Carpal tunnel [...] Laboratory List Name Date .Manual Differential ([facility]) 12/13/22 Basic Metabolic Panel 12/13/22 CBC w/ Diff 12/13/22 Most recent to oldest [Reference Range]: 1 WBC [5.0-10.0 x10^3/mcL] 9.2 x10^3/mcL (12/13/22 1:34 PM) RBC [4.6-6.0 x10^6/mcL] 5.2 x10^6/mcL (12/13/22 1:34 PM) Segs Man [40-75 %] 84 % *HI* (12/13/22 1:34 PM) Lymph Man [20-50 %] 11 % *LOW* (12/13/22 1:34 PM) Henry Man 4 % *NA* (12/13/22 1:34 PM) Eos Man 1 % *NA* (12/13/22 1:34 PM) BUN [7-18 mg/dL] 11 mg/dL (12/13/22 1:34 PM) Glucose Level [74-106 mg/dL] 143 mg/dL *HI* (12/13/22 1:34 PM) Potassium Level [3.5-5.1 mmol/L] 3.4 mmo l/L *LOW* (12/13/22 1:34 PM) MCV [80.0-96.0] 81.0 (12/13/22 1:34 PM) RBC Morph Normal (12/13/22 1:34 PM) MCHC [31.0-35.0 g/dL] 34.0 g/dL (12/13/22 1:34 PM) Sodium Level [136-145 mmol/L] 139 mmol/L (12/13/22 1:34 PM) Hct [41.0-51.0 %] 41.8 % (12/13/22 1:34 PM) Calcium Level [8.5-10.1 mg/dL] 9.0 mg/dL (12/13/22 1:34 PM) MCH [26.0-32.0 pg] 27.5 pg (12/13/22 1:34 PM) Hgb [14.0-18.0 g/dL] 14.2 g/dL (12/13/22 1:34 PM) Band Man [0-5 %] 0 % (12/13/22 1:34 PM) Platelets [130-450 x10^3/mcL] 196 x10^3/ mcL (12/13/22 1:34 PM) CO2 [21-32 mmol/L] 23 mmol/L (12/13/22 1:34 PM) eGFR Non-AA [>=60] 89 (12/13/22 1:34 PM) eGFR AA [>=60] 89 (12/13/22 1:34 PM) Chloride Level [98-107 mmol/L] 104 mmol/ L (12/13/22 1:34 PM) RDW-CV [11.5-17.0 %] 13.1 % (12/13/22 1:34 PM) Abs Neut Man 7.7 x10^3/mcL *NA* (12/13/22 1:34 PM) Creatinine Level [0.70-1.30 mg/dL] 0.98 mg/dL (12/13/22 1:34 PM) Baso Man [0-1 %] 0 % (12/13/22 1:34 PM) Vital Signs Most recent to oldest [Reference Range]: 1 2 3 Temperature Temporal Artery [36-38 Deg C] 35.8 Deg C *LOW* (12/13/22 12:43 PM) Peripheral Pulse Rate [60-100 bpm] 83 bpm (12/13/22 4:54 PM) 88 bpm (12/13/22 1:45 PM) 93 bpm (12/13/22 12:43 PM) Respiratory Rate [12-24 br/min] 18 br/min (12/13/22 4:54 PM) 22 br/min (12/13/22 1:45 PM) 22 br/min (12/13/22 12:43 PM) Blood Pressure [90-140/60-90 mmHg] 161/97mmHg *HI* (12/13/22 4:54 PM) 166/105mmHg *HI* (12/13/22 1:45 PM) 184/148mmHg *HI* (12/13/22 12:43 PM) Weight Dosing 126.00 kg (12/13/22 1:06 PM) Weight Estimated 126.00 kg (12/13/22 12:43 PM) Height/Length Dosing 178.000 cm (12/13/22 1:06 PM) Height/Length Estimated 178.000 cm (12/13/22 12:43 PM) Social History Social History Type Response Smoking Status Never; Smoking tobac co use: Never tobacco user entered on: 06/16/22 Sex Male Hospital Discharge Instructions Patient Education 12/13/2022 16:22:42 Cyclic Vomiting Syndrome, Adult Cyclic Vomiting Syndrome, [...] meals. ??? Taking medicines, such as: ??? Xfmg-zxi-okgynfl pain medicine. ??? Anti-nausea medicines. ??? Antacids. ??? Antihistamines. ??? Medicines for migraines. ??? Antidepressants. ??? Antibiotics. Severe nausea and vomiting may require you to stay at the hospital. You may need IV fluids to prevent or treat dehydration. Follow these instructions at home: During an episode ??? Take luht-ots-[id number] and prescription medicines only as told by [...] avoid spicy or fatty foods, such as togolese fries and pizza. General instructions ??? Monitor [...] provider. Document Revised: 01/22/2022 Document Reviewed: 10/03/2021 [employer] Patient Education ?? 2021 [employer]. Follow Up Care 12/13/2022 12:43:41 With:Follow up with primary care provider Address: When:1 to 2 weeks Physician Emergency department Note * Loli Mead MD: PERFORM Event Display: ED Note Physician Authored Date: [id number] EUGENIA KNOWLES :1965 Age:57 years Sex:Male Visit Date:12/13/2022 Primary Care Physician: Kenia Devine MD Basic Information Time Seen: Loli Mead MD / 12/13/2022 13:07 Chief Complaint N/V/D since 1000 this morning, pt with h/o cyclic vomiting. Pt took suppository of prescription medwithout effect. History Of Present Illness: PlanNausea vomiting and diarrhea started around 10 AM this morning he said he had couple bowel movements??and then he started vomiting??he has bowel movements and then starts vomiting.?? Patient tookmedication he has at home but it did not help.?? No fever no chills no ear nose or throat pain??some epigastric area pain when he vomits??otherwise no chest pain??no specific abdominal pain no extremity edema no??skin rashes Review of Systems: see hpi for ros Physical Exam Vitals & Measurements T:??35.8?C ??(Temporal Artery)?? HR:??83??(Peripheral)?? RR:??18?? BP:??161/97?? SpO2:??99%?? HT:??178.000??cm?? WT:??126.00??kg??(Estimated)?? O2 Therapy:??Room air?? General: Alert and oriented, well nourished,?No??acute distress Eye: PER?Normal??conjunctiva,??No??scleral icterus HENT: Normocephalic,??nontraumatic??Normal hearing Lungs: Clear to auscultation,?Non-labored?? respiration Heart:?Normal?? rate,?Regular??rhythm,?No??murmur,?No??gallop,?No??edema Chest: wall excursion wnl no abnormal movements no obvious deformities Abdomen: Soft, mild to moderate epigastric tenderness??no rebound, non- distended,?Normal?? bowelsounds,?No??masses Musculoskeletal:?Normal?? range of motion and strength,?No??tenderness,?No??swelling Skin: Skin is warm, dry and pink,?No??rashes,?No??lesions Neurologic: Awake, alert and oriented X4 Psychiatric: Cooperative, appropriate mood and affect Medical Decision Making: For MDM please see under assessment and plan Procedure No Qualifying Data Assessment/Plan 1.??Cyclical vomiting??R11.15 Unfortunately for patient unknown cause of the cyclical vomiting patient does not??use marijuana sothis is not a cause??patient to follow-up with primary care provider and gastroenterology.?? Patient to continue with lful-qgo-eqhipjf medications he has. Orders: NS w/K20 1,000 mL, Total Volume (mL): 1,000, 1,000 mL, Soln, IV, 500 mL/hr, Start Date: 12/13/22 14:33:00 EST, 126 kg, Populate Charting Weight From Order, 2.5, m2 Discharge Patient, 12/13/22 17:22:00 EST, Home Independently, Constant Indicator Patient Education Cyclic Vomiting Syndrome, Adult Follow Up With When Contact Information Follow up with primary care provider Within 1 to 2 weeks Additional Instructions: Medication Reconciliation Unchanged albuterol (Albuterol [...] cold food or beverages. Refills: 2. ?? loratadine (Claritin 10 mg oral tablet)1 [...] Administration Given NS w/K20, 1000 mL, IV !-Compazine, 10 mg, IV Push !-Zofran, 4 mg, IV Push 0.9% NaCl bolus, 1 L, IV Bolus Ativan, 1 mg, IV Push Ativan, 2 mg, IV Push Benadryl, 50 mg, IV Push haloperidol, 2 mg, Slow IV Push Allergies PEANUT??(Anaphylaxis) EGG??(Vomiting) FISH CONTAINING PRODUCTS??(Vomiting) HOUSE DUST MITE MOLD TREE NUT??(Anaphylactic reaction) acetaminophen-hydrocodone??(Vomiting) hydroCHLOROthiazide metoclopramide??(Urticaria) Social History Alcohol Never Electronic Cigarette/Vaping Electronic Cigarette Use: Never. 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 Home/Environment Lives with Alone. Nutrition/Health Diet: Regular. Caffeine intake amount: couple glasses of soda daily. Psychosocial Substance Use Never Tobacco Never tobacco user Tobacco Use:. Never Smokeless Tobacco use:. Family History Arteriosclerotic heart disease: Father. Depressive disorder: Father. Lab Results CBC and Differential?? LATEST RESULTS?? HISTORICAL RESULTS?? WBC?? 12/13/22 13:34?? 9.2?? 10/30/22?? 11.0 ??High?? RBC?? 12/13/22 13:34?? 5.2?? 10/30/22?? 5.0?? Hgb?? 12/13/22 13:34?? 14.2?? 10/30/22?? 13.9 ??Low?? Hct?? 12/13/22 13:34?? 41.8?? 10/30/22?? 42.2?? MCV?? 12/13/22 13:34?? 81.0?? 10/30/22?? 84.6?? MCH?? 12/13/22 13:34?? 27.5?? 10/30/22?? 27.9?? MCHC?? 12/13/22 13:34?? 34.0?? 10/30/22?? 32.9?? RDW-CV?? 12/13/22 13:34?? 13.1?? 10/30/22?? 13.5?? Platelets?? 12/13/22 13:34?? 196?? 10/30/22?? 210?? Segs Man?? 12/13/22 13:34?? 84 ??High?? 10/30/22?? 92 ??High?? Lymph Man?? 12/13/22 13:34?? 11 ??Low?? 10/30/22?? 3 ??Low?? Henry Man?? 12/13/22 13:34?? 4?? 10/30/22?? 2?? Eos Man?? 12/13/22 13:34?? 1?? 10/30/22?? 0?? Baso Man?? 12/13/22 13:34?? 0?? 10/30/22?? 0?? Band Man?? 12/13/22 13:34?? 0?? 10/30/22?? 1?? Abs Neut Man?? 12/13/22 13:34?? 7.7?? 10/30/22?? 10.2?? RBC Morph?? 12/13/22 13:34?? Normal?? 10/30/22?? Normal? Routine Chemistry?? LATEST RESULTS?? HISTORICAL RESULTS?? Sodium Level?? 12/13/22 13:34?? 139?? 10/30/22?? 136?? Potassium Level?? 12/13/22 13:34?? 3.4 ??Low?? 10/30/22?? 3.8?? Chloride Level?? 12/13/22 13:34?? 104?? 10/30/22?? 101?? CO2?? 12/13/22 13:34?? 23?? 10/30/22?? 22?? BUN?? 12/13/22 13:34?? 11?? 10/30/22?? 14?? Glucose Level?? 12/13/22 13:34?? 143 ??High?? 10/30/22?? 213 ??High?? Creatinine Level?? 12/13/22 13:34?? 0.98?? 10/30/22?? 1.45 ??High?? eGFR AA?? 12/13/22 13:34?? 89?? 10/30/22?? 56 ??Low?? eGFR Non-AA?? 12/13/22 13:34?? 89?? 10/30/22?? 56 ??Low?? Calcium Level?? 12/13/22 13:34?? 9.0?? 10/30/22?? 8.7? Electronically Signed on 12/13/22 05:25 PM Loli Mead MD Emergency department Discharge instructions * Loli Mead MD: PERFORM Event Display: ED Discharge Information Authored Date: [id number] EUGENIA KNOWLES :1965 Age:57 years Sex:Male Visit Date:12/13/2022 Primary Care Physician: Kenia Devine MD Discharge Instructions We would like to thank you for allowing us to assist you with your healthcare needs. The following includes patient education materials and information regarding your injury/illness. Diagnosis from Today's Visit Cyclical vomiting Discharge Vitals Temperature??(Temporal Artery) 96.4 ??F (35.8 ??C) Heart Rate??(Peripheral) 83 Respiratory Rate?? 18 Blood Pressure?? 161/97?? Height?? 70.08 in (178.000 cm) Weight??(Estimated) 277.83 lb (126.00 kg) Allergies PEANUT??(Anaphylaxis) EGG??(Vomiting) FISH CONTAINING PRODUCTS??(Vomiting) HOUSE DUST MITE MOLD TREE NUT??(Anaphylactic reaction) acetaminophen-hydrocodone??(Vomiting) hydroCHLOROthiazide metoclopramide??(Urticaria) What to Do Next Instructions from Your Care Team If you worsen return to the emergency department You Need to Schedule the Following Appointments Follow Up with??Follow up with primary care provider When:??Within 1 to 2 weeks Upcoming Scheduled Appointments Thursday 3:20 PM EST ?? Thursday 1:15 PM EDT ?? Thursday 10:30 AM EDT ?? You were treated today on [...] into cold food or beverages ?? Unchanged loratadine (Claritin 10 mg oral [...] meals. ? Taking medicines, such as: ? Mkzu-syo-zuigbsl pain medicine. ? Anti-nausea medicines. ? Antacids. ? Antihistamines. ? Medicines for migraines. ? Antidepressants. ? Antibiotics. Severe nausea and vomiting may require you to stay at the hospital. You may need IV fluids to prevent or treat dehydration. Follow these instructions at home: During an episode ? Take lfqr-mhh-bnvqstb and prescription medicines only as told by [...] avoid spicy or fatty foods, such as togolese fries and pizza. General instructions ? Monitor [...] Reviewed: 10/03/2021 Elsevier Patient Education ?? 2021 [employer] Tests Performed Medications and Immunizations Administered Given NS w/K20, 1000 mL, IV !-Compazine, 10 mg, IV Push !-Zofran, 4 mg, IV Push 0.9% NaCl bolus, 1 L, IV Bolus Ativan, 1 mg, IV Push Ativan, 2 mg, IV Push Benadryl, 50 mg, IV Push haloperidol, 2 mg, Slow IV Push Lab Test Name Test Result Date/Time WBC 9.2 x10^3/mcL 12/13/2022 13:34 EST RBC 5.2 x10^6/mcL 12/13/2022 13:34 EST Hgb 14.2 g/dL 12/13/2022 13:34 EST Hct 41.8 % 12/13/2022 13:34 EST MCV 81.0 12/13/2022 13:34 EST MCH 27.5 pg 12/13/2022 13:34 EST MCHC 34.0 g/dL 12/13/2022 13:34 EST RDW-CV 13.1 % 12/13/2022 13:34 EST Platelets 196 x10^3/mcL 12/13/2022 13:34 EST Segs Man 84 % 12/13/2022 13:34 EST Lymph Man 11 % 12/13/2022 13:34 EST Henry Man 4 % 12/13/2022 13:34 EST Eos Man 1 % 12/13/2022 13:34 EST Baso Man 0 % 12/13/2022 13:34 EST Band Man 0 % 12/13/2022 13:34 EST Abs Neut Man 7.7 x10^3/mcL 12/13/2022 13:34 EST RBC Morph Normal 12/13/2022 13:34 EST Sodium Level 139 mmol/L 12/13/2022 13:34 EST Potassium Level 3.4 mmol/L 12/13/2022 13:34 EST Chloride Level 104 mmol/L 12/13/2022 13:34 EST CO2 23 mmol/L 12/13/2022 13:34 EST BUN 11 mg/dL 12/13/2022 13:34 EST Glucose Level 143 mg/dL 12/13/2022 13:34 EST Creatinine Level 0.98 mg/dL 12/13/2022 13:34 EST eGFR AA 89 12/13/2022 13:34 EST eGFR Non-AA 89 12/13/2022 13:34 EST Calcium Level 9.0 mg/dL 12/13/2022 13:34 EST Patient/Vulcanizer Operator Signature Patient Name:EUGENIA KNOWLES I have received this information and my questions have been answered. Patient/Vulcanizer Operator Name: Patient/Vulcanizer Operator Signature: Relationship to Patient: Witness Name/Signature: Date: Electronically Signed on: 12/13/2022 17:23 ESTSigned by:[facility] Emergency department Note * Valentine Rg: PERFORM Event Display: ED Notes Authored Date: Discharge summary * Magali Sarah: PERFORM Event Display: Discharge Note Authored Date: * Magali Sarah: PERFORM Event Display: Discharge Note Authored Date: Diagnosis: 1. Cyclical vomiting Comment: Diagnosis: Vomiting Comment: Electronically Signed on 12/13/22 05:30 PM Magali Sarah Patient Care team information Personnel Name: Kenia Devine MD Address: Address: [place] [address]- [place]
--- OUTSIDE RECORDS SUMMARY | 2024-07-07 11:41 | XMS_ITS | Continuity of Care Document ---
Author Organization [facility] Address [address] [place] [address] Care Team Providers Care Industrial Cleaner Name Role Phone Kenia Devine Primary Care Physician Encounter [facility] Date(s): 12/31/22 - 12/31/22 [facility] [address] [place] [address] Discharge Disposition: Home or Self Care Attending [...] rectal suppository 25 mg = 1 supp, TN, every 4 hr, PRN as needed for nausea/vomiting, # 30 supp, 0 Refill(s), Pharmacy: [facility], 178, cm, 09/04/22 7:09:00 EDT, Height/Length Dosing, 119, kg, 09/04/22 7:09:00 EDT, Weight Dosing Start Date: 09/16/22 Status: Ordered !-Zofran ODT 4 mg oral tablet, disintegrating 4 mg = 1 tab, Oral, every 8 hr, PRN as needed for nausea/vomiting, # 20 tab, 0 Refill(s), Pharmacy:[facility], 178, cm, 08/13/22 8:42:00 EDT, Height/Length Dosing, 117.9, kg, 08/13/22 8:42:00 EDT, Weight Dosing Start Date: 08/14/22 Status: Ordered Albuterol (Eqv-ProAir HFA) 90 mcg/inh inhalation aerosol 180 mcg 2 puffs, Inhale, every 4 hr, PRN not specified, # 18 g, 0 Refill(s), Pharmacy: [facility], 178, cm, 12/13/22 13:06:00 EST, Height/Length Dosing, 126, kg, 12/13/22 13:06:00 EST, Weight Dosing Start Date: 12/16/22 Status: Ordered amitriptyline 25 mg oral tablet 25 mg = 1 tab, Oral, every night at bedtime, # 90 tab, 1 Refill(s), Pharmacy: [facility]58,177.8, cm, 07/08/22 7:12:00 EDT, Height/Length Dosing, [...] Once, # 1 EA, 0 Refill(s), Pharmacy: [facility], 177.8, cm, 06/01/22 17:05:00 EDT, Height/Length Dosing, 117.93, kg, 06/01/22 17:05:00 EDT, Weight Dosing Start Date: 06/04/22 Status: Ordered escitalopram 20 mg oral tablet 20 mg = 1 tab, Oral, every morning, # 30 tab, 2 Refill(s), Pharmacy: [facility], 178, cm,10/30/22 13:49:00 EST, Height/Length Dosing, 126, kg, 10/30/22 13:49:00 EST, Weight Dosing Start Date: 11/21/22 Stop Date: 02/19/23 Status: Ordered gabapentin 300 mg oral capsule 300 mg = 1 cap, Oral, BID, # 60 cap, 0 Refill(s), Pharmacy: [facility]58, 178, cm, 12/13/2312:06:00 EST, Height/Length Dosing, 126, kg, 12/13/22 13:06:00 EST, Weight Dosing Start Date: 12/16/22 Status: Ordered theodora oral capsule See Instructions, take 1 tablet on tongue at onset of nausea. Repeat every 6 hours as needed, # 20 tab, 0 Refill(s), Pharmacy: [facility]58, 178, cm, 08/13/22 8:42:00 EDT, Height/Length [...] beverages, # 30 cap, 2 Refill(s), Pharmacy: [facility], 178, cm, 10/30/22 13:49:00 EST, Height/Length Dosing, 126,kg, 10/30/22 13:49:00 EST, Weight Dosing Start Date: 11/21/22 Stop Date: 02/19/23 Status: Ordered lisinopril 10 mg oral tablet 10 mg = 1 tab, Oral, Daily, # 90 tab, 0 Refill(s), Pharmacy: [facility], 178, cm, 12/13/22 13:06:00 EST, Height/Length [...] Daily, # 90 cap, 3 Refill(s), Pharmacy: [facility], 178, cm, 08/13/22 8:42:00 EDT, Height/Length [...] bedtime, # 30 tab, 2 Refill(s), Pharmacy: [facility]58,178, cm, 10/30/22 13:49:00 EST, Height/Length Dosing, 126, kg, 10/30/22 13:49:00 EST, Weight Dosing Start Date: 11/21/22 Stop Date: 02/19/23 Status: Ordered omeprazole 40 mg oral delayed release capsule 40 mg = 1 cap, Oral, Daily Start Date: 05/01/22 Status: Ordered risperiDONE 1 mg oral tablet 1 mg = 1 tab, Oral, every night at bedtime, # 30 tab, 2 Refill(s), Pharmacy: [facility]58, 178, cm, 10/30/22 13:49:00 EST, Height/Length Dosing, 126, kg, 10/30/22 13:49:00 EST, Weight Dosing Start Date: 11/21/22 Stop Date: 02/19/23 Status: Ordered sucralfate 1 g oral tablet TAKE ONE TABLET BY MOUTH TWICE A DAY Start Date: 12/13/22 Status: Ordered Symbicort 80 mcg-4.5 mcg/inh inhalation aerosol 2 puffs, Inhale, BID, # 10.2 g, 5 Refill(s), Pharmacy: [facility]58, 177.8, cm, 09/22/22 6:14:00 EST, Height/Length [...] Member Role: Informed Provider Address: Address: [address] Name: Veronique Rowan WELDING SYSTEMS AND EQUIPMENT REPAIRER Position: Physician Member Role: Nurse Practitioner Address: Address: [address] [place] [address] Name: Irma Monteiro WELDING SYSTEMS AND EQUIPMENT REPAIRER Position: Physician Member Role: Nurse Practitioner Address: Address: [address] [place] [address] Care Team Related Persons Name: SALO BARBOSA Address: Home Name: JANET BARBOSA Address: Home
--- OUTSIDE RECORDS SUMMARY | 2024-07-07 11:41 | XMS_ITS | Continuity of Care Document ---
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 often enough to relieve muscle pain. Your health care provider may also prescribe NSAIDs, such as ibuprofen. Follow these instructions at home: Medicines ? Take [id number] and prescription medicines only as told by your health care provider. ? Ask your health care provider if the medicine prescribed to you requires you to avoid driving or using machinery. Managing pain, swelling, and discomfort ? If directed, put ice on the painful area. To do this: ? Put ice in a plastic bag. ? Place a towel between your skin and the bag. ? Leave the ice on for 20 minutes, 2???3 times a day. ? For the first 2 days of muscle soreness, or if there is swelling: ? Do not soak in hot baths. ? Do not use a hot tub, steam room, sauna, heating pad, or other heat source. ? After 48???72 hours, you may alternate between applying ice and applying heat as told by your health care provider. If directed, apply heat to the affected area as often as told by your health care provider. Use the heat source that your health care provider recommends, such as a moist heat pack ora heating pad. ? Place a towel between your skin and the heat source. ? Leave the heat on for 20???30 minutes. ? Remove the heat if your skin turns bright red. This is especially important if you are unable to feel pain, heat, or cold. You may have a greater risk of getting burned. ? If you have an injury, raise (elevate) the injured area above the level of your heart while you aresitting or lying down. Activity ? If overuse is causing your muscle pain: ? Slow down your activities until the pain goes away. ? Do regular, gentle exercises if you are not usually active. ? Warm up before exercising. Stretch before and after exercising. This can help lower the risk of muscle pain. ? Do not continue working out if the pain is severe. Severe pain could mean that you have injured a muscle. ? Do not lift anything that is heavier than 5???10 lb (2.3???4.5 kg), or the limit that you are told,until your health care provider says that it is safe. ? Return to your normal activities as told by your health care provider. Ask your health care provider what activities are safe for you. General instructions ? Do not use any products that contain nicotine or tobacco, such as cigarettes, e- cigarettes, and chewing tobacco. These can delay healing. If you need help quitting, ask your health care provider. ? Keep all follow-up visits as told by your health care provider. This is important. Contact a health care provider if you have: ? Muscle pain that gets worse and medicines do not help. ? Muscle pain that lasts longer than 3 days. ? A rash or fever along with muscle pain. ? Muscle pain after a tick bite. ? Muscle pain while working out, even though you are in good physical condition. ? Redness, soreness, or swelling along with muscle pain. ? Muscle pain after starting a new medicine or changing the dose of a medicine. Get help right away if you have: ? Trouble breathing. ? Trouble swallowing. ? Muscle pain along with a stiff neck, fever, and vomiting. ? Severe muscle weakness or you cannot move part of your body. These symptoms may represent a serious problem that is an emergency. Do not wait to see if the symptoms will go away. Get medical help right away. Call your local emergency services (911 in the [place] Do not drive yourself to the hospital. Summary ? Muscle pain usually lasts only a short time and goes away without treatment. ? This condition is caused by using muscles in a new or different way after a period of inactivity. ? If your muscle pain lasts longer than 3 days, tell your health care provider. This information is not intended to replace advice given to you by your health care provider. Make sure you discuss any questions you have with your health care provider. Document Revised: 08/10/2020 Document Reviewed: 08/10/2020 [employer] Patient Education ?? 2021 [employer] Tests Performed Lab Test Name Test Result Date/Time WBC 5.6 x10^3/mcL 05/03/2023 11:10 EDT RBC 4.7 x10^6/mcL 05/03/2023 11:10 EDT Hgb 13.0 g/dL 05/03/2023 11:10 EDT Hct 39.0 % 05/03/2023 11:10 EDT MCV 82.6 fL 05/03/2023 11:10 EDT MCH 27.5 pg 05/03/2023 11:10 EDT MCHC 33.3 g/dL 05/03/2023 11:10 EDT RDW-CV 13.3 % 05/03/2023 11:10 EDT Platelets 172 x10^3/mcL 05/03/2023 11:10 EDT Neutro Auto 65.6 % 05/03/2023 11:10 EDT Lymph Auto 22.2 % 05/03/2023 11:10 EDT [place] Auto 8.1 % 05/03/2023 11:10 EDT Eos, Auto 2.7 % 05/03/2023 11:10 EDT Basophil Auto 0.5 % 05/03/2023 11:10 EDT Imm Gran Auto 0.9 % 05/03/2023 11:10 EDT Neutro Absolute 3.7 x10^3/mcL 05/03/2023 11:10 EDT Sodium Level 138 mmol/L 05/03/2023 11:10 EDT Potassium Level 3.7 mmol/L 05/03/2023 11:10 EDT Chloride Level 104 mmol/L 05/03/2023 11:10 EDT CO2 31 mmol/L 05/03/2023 11:10 EDT Alk Phos 176 unit/L 05/03/2023 11:10 EDT AST 17 unit/L 05/03/2023 11:10 EDT ALT 34 unit/L 05/03/2023 11:10 EDT BUN 13 mg/dL 05/03/2023 11:10 EDT Glucose Level 124 mg/dL 05/03/2023 11:10 EDT Creatinine Level 0.84 mg/dL 05/03/2023 11:10 EDT eGFR AA 101 05/03/2023 11:10 EDT eGFR Non-AA 101 05/03/2023 11:10 EDT Calcium Level 8.3 mg/dL 05/03/2023 11:10 EDT Protein Total 6.8 g/dL 05/03/2023 11:10 EDT Albumin Level 3.2 g/dL 05/03/2023 11:10 EDT Bilirubin Total 0.6 mg/dL 05/03/2023 11:10 EDT Troponin-I <5.0 pg/mL 05/03/2023 11:10 EDT Patient/Wrapper And Preserver Signature Patient Name:EUGENIA KNOWLES I have received this information and my questions have been answered. Patient/Wrapper And Preserver Name: Patient/Wrapper And Preserver Signature: Relationship to Patient: Witness Name/Signature: Date: Electronically Signed on: 05/03/2023 11:53 EDTSigned by:Kevin Emergency department Note * Faby Berry: PERFORM Event Display: ED Notes Authored Date: [id number] Patient Care team information Care Team Personnel Name: Kenia Devine MD Position: Physician Member Role: Informed Provider Address: Address: [place] [address]- [place] Name: Veronique Rowan [employer] Position: Physician Member Role: Nurse Practitioner Address: Address: [address] [place] [address]- [place] Name: Irma Monteiro [employer] Position: Physician Member Role: Nurse Practitioner Address: Address: [address] [id number] [place] Name: Tsering Mcmahon MD Position: Physician Member Role: Attending Physician Address: Address: [address] [place] [address] Name: Karen Toscano Position: Nurse Member Role: ED Nurse Care Team Related Persons Name: SALO BARBOSA Name: JANET BARBOSA
--- OUTSIDE RECORDS SUMMARY | 2024-07-07 11:41 | XMS_ITS | Continuity of Care Document ---
Author Organization [facility] Address [address] [place] [address] Care Team Providers Care Mercerizing Range Feeder Name Role Phone Kenia Devine Primary Care Physician Encounter [facility] Date(s): 08/11/22 - 08/11/[address] [phone] [place] Encounter Diagnosis Cyclical vomiting(Discharge Diagnosis) - 08/11/22 Discharge Disposition: Home Attending Physician: Felipe Lance [...] Tests Laboratory* Hemoglobin A1c 06/27/22 Functional Status 08/11/22 Family Member Travel History No recent t [...] rectal suppository 25 mg = 1 supp, GA, every 4 hr, PRN as needed for nausea/vomiting, # 12 supp, 0 Refill(s), Pharmacy: [facility] #58, 178, cm, 06/27/22 6:14:00 EDT, Height/Length Dosing, 118.85, kg, 06/27/22 6:14:00 EDT, Weight Dosing Start Date: 06/27/22 Status: Ordered Albuterol (Eqv-ProAir HFA) 90 mcg/inh inhalation aerosol 180 mcg 2 puffs, Inhale, every 4 hr, PRN not specified, # 18 g, 0 Refill(s), Pharmacy: [facility] #58, 177, cm, 06/07/22 17:11:00 EDT, Height/Length Dosing, 119, kg, 06/07/22 17:11:00 EDT, Weight Dosing Start Date: 06/16/22 Status: Ordered amitriptyline 25 mg oral tablet 25 mg = 1 tab, Oral, every night at bedtime, # 90 tab, 1 Refill(s), Pharmacy: [facility]58,177.8, cm, 07/08/22 7:12:00 EDT, Height/Length Dosing, 117.93, kg, 07/08/22 7:12:00 EDT, Weight Dosing Start Date: 07/16/22 Status: Ordered amLODIPine 10 mg oral tablet 10 mg = 1 tab, Oral, Daily Start Date: 05/01/22 Status: Ordered aprepitant 80 mg oral capsule 80 mg = 1 cap, Oral, every morning, # 30 cap, 0 Refill(s), Pharmacy: [facility] #58, 177.8, cm, 07/08/22 7:12:00 EDT, Height/Length Dosing, 117.93, kg, 07/08/22 7:12:00 EDT, Weight Dosing Start Date: 07/10/22 Status: Ordered baclofen 10 mg oral tablet 10 mg = 1 tab, Oral, TID, PRN other (see comment), as needed, # 21 tab, 0 Refill(s), Pharmacy: [facility]58, 177.8, cm, 04/12/22 11:32:00 EDT, Height/Length [...] Once, # 1 EA, 0 Refill(s), Pharmacy: [facility]58, 177.8, cm, 06/01/22 17:05:00 EDT, Height/Length Dosing, 117.93, kg, 06/01/22 17:05:00 EDT, Weight Dosing Start Date: 06/04/22 Status: Ordered escitalopram 20 mg oral tablet 20 mg = 1 tab, Oral, every morning, # 30 tab, 2 Refill(s), Pharmacy: [facility], 178, cm,08/12/22 6:44:00 EDT, Height/Length Dosing, [...] Daily, # 90 cap, 0 Refill(s), Pharmacy: [facility]58, 177.8, cm, 06/01/22 17:05:00 EDT, Height/Length [...] bedtime, # 30 tab, 2 Refill(s), Pharmacy: [facility] #58,178, cm, 08/12/22 6:44:00 EDT, Height/Length Dosing, [...] nausea, # 25 tab, 0 Refill(s), Pharmacy: [facility] #58, 177.8, cm, 06/01/22 17:05:00 EDT, Height/Length Dosing, 117.93, kg, 06/01/22 17:05:00 EDT, Weight Dosing Start Date: 06/02/22 Status: Ordered prochlorperazine 10 mg oral tablet 10 mg = 1 tab, Oral, QID, # 28 tab, 0 Refill(s), Pharmacy: [facility] #58, 178, cm, 08/11/22 6:40:00 EDT, Height/Length Dosing, 117.9, kg, 08/11/22 6:40:00 EDT, Weight Dosing Start Date: 08/11/22 Status: Ordered risperiDONE 1 mg oral tablet 1 mg = 1 tab, Oral, every night at bedtime, # 30 tab, 2 Refill(s), Pharmacy: [facility] #58, 178, cm, 08/12/22 6:44:00 EDT, Height/Length Dosing, 117.9, kg, 08/12/22 6:44:00 EDT, Weight Dosing Start Date: 08/12/22 Stop Date: 11/10/22 Status: Ordered Symbicort 80 mcg-4.5 mcg/inh inhalation aerosol 2 puffs, Inhale, BID, 0 Refill(s) Start Date: 05/01/22 Status: Ordered tamsulosin 0.4 mg oral capsule 0.4 mg = 1 cap, Oral, Daily Start Date: 07/19/22 Status: Ordered Mental Status 08/11/22 Eye Opening Response [place] Spontaneous ly Best Verbal Response Dorcas Oriented Best Motor Response Dorcas Obeys comman ds Dorcas Coma Score 15 [...] gastric polyposis Results Laboratory List Name Date Urinalysis with Micro if Indicated and C ulture if Indicated 08/11/22 CBC w/ Diff 08/11/22 Comprehensive Metabolic Panel 08/11/22 Automated Diff 08/11/22 Most recent to oldest [Reference Range]: 1 WBC [5.0-10.0 x10^3/mcL] 6.0 x10^3/mcL (08/11/22 6:43 AM) RBC [4.6-6.0 x10^6/mcL] 5.1 x10^6/mcL (08/11/22 6:43 AM) Neutro Auto [40.0-75.0 %] 66.0 % (08/11/22 6:43 AM) Lymph Auto [20.0-50.0 %] 22.7 % (08/11/22 6:43 AM) [place] Auto [2.0-15.0 %] 7.5 % (08/11/22 6:43 AM) Basophil Auto [0.0-1.0 %] 0.3 % (08/11/22 6:43 AM) BUN [7-18 mg/dL] 15 mg/dL (08/11/22 6:43 AM) UA Color Yellow (08/11/22 7:37 AM) Glucose Level [74-106 mg/dL] 275 mg/dL *HI* (08/11/22 6:43 AM) Potassium Level [3.5-5.1 mmol/L] 3.4 mmo l/L *LOW* (08/11/22 6:43 AM) MCV [80.0-103.0 fL] 83.4 fL (08/11/22 6:43 AM) UA Urobilinogen Normal (08/11/22 7:37 AM) UA Bili [Negative] Negative (08/11/22 7:37 AM) UA Ketones Negative (08/11/22 7:37 AM) AST [15-37 unit/L] 25 unit/L (08/11/22 6:43 AM) ALT [14-59 unit/L] 40 unit/L (08/11/22 6:43 AM) MCHC [31.0-35.0 g/dL] 33.5 g/dL (08/11/22 6:43 AM) Sodium Level [136-145 mmol/L] 137 mmol/L (08/11/22 6:43 AM) UA Leuk Est Negative (08/11/22 7:37 AM) UA Nitrite Negative (08/11/22 7:37 AM) UA Glucose [Negative] 3+ *ABN* (08/11/22 7:37 AM) Hct [41.0-51.0 %] 42.7 % (08/11/22 6:43 AM) Calcium Level [8.5-10.1 mg/dL] 8.5 mg/dL (08/11/22 6:43 AM) Albumin Level [3.4-5.0 g/dL] 3.6 g/dL (08/11/22 6:43 AM) Protein Total [6.4-8.2 g/dL] 7.3 g/dL (08/11/22 6:43 AM) UA Protein Negative (08/11/22 7:37 AM) MCH [26.0-32.0 pg] 27.9 pg (08/11/22 6:43 AM) Neutro Absolute 4.0 x10^3/mcL *NA* (08/11/22 6:43 AM) Bilirubin Total [0.2-1.0 mg/dL] 0.7 mg/d L (08/11/22 6:43 AM) Hgb [14.0-18.0 g/dL] 14.3 g/dL (08/11/22 6:43 AM) Alk Phos [46-146 unit/L] 156 unit/L *HI* (08/11/22 6:43 AM) UA Blood Negative (08/11/22 7:37 AM) UA Spec Grav 1.020 *NA* (08/11/22 7:37 AM) Platelets [130-450 x10^3/mcL] 170 x10^3/ mcL (08/11/22 6:43 AM) CO2 [21-32 mmol/L] 26 mmol/L (08/11/22 6:43 AM) UA pH 6.0 *NA* (08/11/22 7:37 AM) eGFR Non-AA [>=60] 79 (08/11/22 6:43 AM) eGFR AA [>=60] 79 (08/11/22 6:43 AM) UA Appear Clear (08/11/22 7:37 AM) Chloride Level [98-107 mmol/L] 102 mmol/ L (08/11/22 6:43 AM) RDW-CV [11.5-17.0 %] 13.2 % (08/11/22 6:43 AM) Imm Gran Auto [0.0-0.9 %] 0.7 % (08/11/22 6:43 AM) Creatinine Level [0.70-1.30 mg/dL] 1.09 mg/dL (08/11/22 6:43 AM) Anion Gap [8-16 mmol/L] 9 mmol/L (08/11/22 6:43 AM) Eos, Auto [1.0-6.0 %] 2.8 % (08/11/22 6:43 AM) Vital Signs Most recent to oldest [Reference Range]: 1 2 3 Temperature Tympanic [36.6-37.9 Deg C] 36 Deg C *LOW* (08/11/22 6:30 AM) Peripheral Pulse Rate [60-100 bpm] 109 bpm *HI* (08/11/22 11:16 AM) 88 bpm (08/11/22 9:16 AM) 81 bpm (08/11/22 8:53 AM) Respiratory Rate [12-24 br/min] 16 br/min (08/11/22 11:16 AM) 16 br/min (08/11/22 7:30 AM) 18 br/min (08/11/22 6:30 AM) Blood Pressure [90-140/60-90 mmHg] 159/111mmHg *HI* (08/11/22 11:16 AM) 166/104mmHg *HI* (08/11/22 8:53 AM) 158/100mmHg *HI* (08/11/22 7:30 AM) Weight Dosing 117.90 kg (08/11/22 6:40 AM) Weight Estimated 117.90 kg (08/11/22 6:30 AM) Height/Length Dosing 178.000 cm (08/11/22 6:40 AM) Height/Length Estimated 178.000 cm (08/11/22 6:30 AM) Social History Social History Type Response Smoking Status Never; Smoking tobac co use: Never tobacco user entered on: 06/16/22 Sex Male Patient Care team information Personnel Name: Kenia Devine MD Address: Address: [place] [address]- [place]
--- OUTSIDE RECORDS SUMMARY | 2024-07-07 11:41 | XMS_ITS | Continuity of Care Document ---
Author Organization [facility] Address [address] [place] [address] Care Team Providers Care Inset Cutter Name Role Phone LionelKenia Primary Care Physician Encounter [facility] Date(s): 09/19/22 - 09/19/22 [facility] [address] [place] [address] us Encounter Diagnosis Vomiting(Discharge Diagnosis) - 09/19/22 Abdominal pain(Discharge Diagnosis) - 09/19/22 Discharge Disposition: Home or Self Care Attending Physician: Loil Mead MD Admitting Physician: Loli Mead MD [...] rectal suppository 25 mg = 1 supp, LA, every 4 hr, PRN as needed for nausea/vomiting, # 30 supp, 0 Refill(s), Pharmacy: [facility] #[facility], 178, cm, 09/04/22 7:09:00 EDT, Height/Length Dosing, 119, kg, 09/04/22 7:09:00 EDT, Weight Dosing Start Date: 09/16/22 Status: Ordered !-Zofran ODT 4 mg oral tablet, disintegrating 4 mg = 1 tab, Oral, every 8 hr, PRN as needed for nausea/vomiting, # 20 tab, 0 Refill(s), Pharmacy:[facility], 178, cm, 08/13/22 8:42:00 EDT, Height/Length Dosing, 117.9, kg, 08/13/22 8:42:00 EDT, Weight Dosing Start Date: 08/14/22 Status: Ordered Albuterol (Eqv-ProAir HFA) 90 mcg/inh inhalation aerosol 180 mcg 2 puffs, Inhale, every 4 hr, PRN not specified, # 18 g, 0 Refill(s), Pharmacy: [facility], 177, cm, 06/07/22 17:11:00 EDT, Height/Length Dosing, 119, kg, 06/07/22 17:11:00 EDT, Weight Dosing Start Date: 06/16/22 Status: Ordered amitriptyline 25 mg oral tablet 25 mg = 1 tab, Oral, every night at bedtime, # 90 tab, 1 Refill(s), Pharmacy: [facility],177.8, cm, 07/08/22 7:12:00 EDT, Height/Length Dosing, [...] Once, # 1 EA, 0 Refill(s), Pharmacy: [facility], 177.8, cm, 06/01/22 17:05:00 EDT, Height/Length Dosing, 117.93, kg, 06/01/22 17:05:00 EDT, Weight Dosing Start Date: 06/04/22 Status: Ordered escitalopram 20 mg oral tablet 20 mg = 1 tab, Oral, every morning, # 30 tab, 2 Refill(s), Pharmacy: [facility], 178, cm,08/12/22 6:44:00 EDT, Height/Length Dosing, 117.9, kg, 08/12/22 6:44:00 EDT, Weight Dosing Start Date: 08/12/22 Stop Date: 11/10/22 Status: Ordered gabapentin 100 mg oral capsule 100 mg = 1 cap, Oral, TID, # 90 cap, 0 Refill(s), Pharmacy: [facility], 178, cm, 227:09:00 EDT, Height/Length Dosing, 119, kg, 09/04/22 7:09:00 EDT, Weight Dosing Start Date: 09/16/22 Status: Ordered theodora oral capsule See Instructions, take 1 tablet on tongue at onset of nausea. Repeat every 6 hours as needed, # 20 tab, 0 Refill(s), Pharmacy: [facility], 178, cm, 08/13/22 8:42:00 EDT, Height/Length [...] Daily, # 90 cap, 3 Refill(s), Pharmacy: [facility], 178, cm, 08/13/22 8:42:00 EDT, Height/Length [...] bedtime, # 30 tab, 2 Refill(s), Pharmacy: [facility],178, cm, 08/12/22 6:44:00 EDT, Height/Length Dosing, 117.9, kg, 08/12/22 6:44:00 EDT, Weight Dosing Start Date: 08/12/22 Stop Date: 11/10/22 Status: Ordered omeprazole 40 mg oral delayed release capsule 40 mg = 1 cap, Oral, Daily Start Date: 05/01/22 Status: Ordered risperiDONE 1 mg oral tablet 1 mg = 1 tab, Oral, every night at bedtime, # 30 tab, 2 Refill(s), Pharmacy: [facility], 178, cm, 08/12/22 6:44:00 EDT, Height/Length [...] Laboratory List Name Date CBC w/ Diff 09/19/22 Comprehensive Metabolic Panel 09/19/22 Lipase Level 09/19/22 .Manual Differential ([facility]) 09/19/22 Most recent to oldest [Reference Range]: 1 WBC [5.0-10.0 x10^3/mcL] 10.7 x10^3/mcL *HI* (09/19/22 10:20 AM) RBC [4.6-6.0 x10^6/mcL] 4.7 x10^6/mcL (09/19/22 10:20 AM) Segs Man [40-75 %] 85 % *HI* (09/19/22 10:20 AM) Lymph Man [20-50 %] 9 % *LOW* (09/19/22 10:20 AM) [place] Man 6 % *NA* (09/19/22 10:20 AM) Eos Man 0 % *NA* (09/19/22 10:20 AM) BUN [7-18 mg/dL] 12 mg/dL (09/19/22: AM) Glucose Level [74-106 mg/dL] 179 mg/dL *HI* (09/19/22 AM) Potassium Level [3.5-5.1 mmol/L] 3.6 mmo l/L (09/19/22 AM) MCV [80.0-96.0] 80.8 (09/19/22 AM) RBC Morph Abnormal (09/19/22 AM) AST [15-37 unit/L] 26 unit/L (09/19/22 AM) ALT [16-63 unit/L] 45 unit/L (09/19/22 AM) MCHC [31.0-35.0 g/dL] 34.8 g/dL (09/19/22 AM) Sodium Level [136-145 mmol/L] 136 mmol/L (09/19/22 AM) Hct [41.0-51.0 %] 38.2 % *LOW* (09/19/22 AM) Microcyte Rare (09/19/22 AM) Lipase Level [16-77 unit/L] 23 unit/L (09/19/22 AM) Calcium Level [8.5-10.1 mg/dL] 9.0 mg/dL (09/19/22 AM) Albumin Level [3.4-5.0 g/dL] 3.5 g/dL (09/19/22 AM) Protein Total [6.4-8.2 g/dL] 7.5 g/dL (09/19/22: AM) MCH [26.0-32.0 pg] 28.1 pg (09/19/22: AM) Bilirubin Total [0.2-1.0 mg/dL] 0.6 mg/d L (09/19/22 AM) Hgb [14.0-18.0 g/dL] 13.3 g/dL *LOW* (09/19/22 AM) Alk Phos [46-146 unit/L] 146 unit/L (09/19/22 AM) Band Man [0-5 %] 0 % (09/19/22 10:20 AM) Platelets [130-450 x10^3/mcL] 261 x10^3/ mcL (09/19/22 10:20 AM) CO2 [21-32 mmol/L] 25 mmol/L (09/19/22 10:20 AM) eGFR Non-AA [>=60] 95 (09/19/22 10:20 AM) eGFR AA [>=60] 95 (09/19/22 10:20 AM) Chloride Level [98-107 mmol/L] 102 mmol/ L (09/19/22 10:20 AM) RDW-CV [11.5-17.0 %] 13.0 % (09/19/22 10:20 AM) Abs Neut Man 9.1 x10^3/mcL *NA* (09/19/22 10:20 AM) Anisocyte Rare (09/19/22 10:20 AM) Creatinine Level [0.70-1.30 mg/dL] 0.93 mg/dL (09/19/22 10:20 AM) Baso Man [0-1 %] 0 % (09/19/22 10:20 AM) Vital Signs Most recent to oldest [Reference Range]: 1 2 3 Temperature Temporal Artery [36-38 Deg C] 35.6 Deg C *LOW* (09/19/22 9:05 AM) Peripheral Pulse Rate [60-100 bpm] 90 bpm (09/19/22 6:30 PM) 78 bpm (09/19/22 6:00 PM) 80 bpm (09/19/22 5:45 PM) Heart Rate Monitored [60-100 bpm] 93 bpm (09/19/22 6:30 PM) 84 bpm (09/19/22 6:15 PM) 88 bpm (09/19/22 6:00 PM) Respiratory Rate [12-24 br/min] 28 br/min *HI* (09/19/22 6:30 PM) 26 br/min *HI* (09/19/22 6:15 PM) 18 br/min (09/19/22 6:00 PM) Blood Pressure [90-140/60-90 mmHg] 174/99mmHg *HI* (09/19/22 6:38 PM) 169/125mmHg *HI* (09/19/22 6:30 PM) 167/106mmHg *HI* (09/19/22 6:15 PM) Mean Arterial Pressure, Cuff [65-140 mmHg] 140 mmHg (09/19/22 6:30 PM) 126 mmHg (09/19/22 6:15 PM) 135 mmHg (09/19/22 6:00 PM) Blood Pressure Method Automatic (09/19/22 5:30 PM) Weight Dosing 123.83 kg (09/19/22 9:36 AM) Weight Estimated 123.83 kg (09/19/22 9:05 AM) Height/Length Dosing 177.800 cm (09/19/22 9:36 AM) Height/Length Estimated 177.800 cm (09/19/22 9:05 AM) Social History Social History Type Response Smoking Status Never; Smoking tobac co use: Never tobacco user entered on: 06/16/22 Sex Male Hospital Discharge Instructions Patient Education 09/19/2022 18:07:38 Cholelithiasis Cholelithiasis Cholelithiasis is a disease in which gallstones form in the gallbladder. The gallbladder is an organ that stores bile. Bile is a fluid that helps to digest fats. Gallstones begin as small crystals and can slowly grow into stones. They may cause no symptoms until they block the gallbladder duct, or cystic duct, when the gallbladder tightens (contracts) after food is eaten. This can cause pain and is known as a gallbladder attack, or biliary colic. There are two main types of gallstones: ??? Cholesterol stones. These are the most common type of gallstone. These stones are made of hardened cholesterol and are usually yellow-green in color. Cholesterol is a fat-like substance that is made in the liver. ??? Pigment stones. These are dark in color and are made of a red-yellow substance, called bilirubin,that forms when hemoglobin from red blood cells breaks down. What are the causes? This condition may be caused by an imbalance in the different parts that make bile. This can happenif the bile: ??? Has too much bilirubin. This can happen in certain blood diseases, such as sickle cell anemia. ??? Has too much cholesterol. ??? Does not have enough bile salts. These salts help the body absorb and digest fats. In some cases, this condition can also be caused by the gallbladder not emptying completely or often enough. This is common during . What increases the risk? The following factors may make you more likely to develop this condition: ??? Being female. ??? Having multiple pregnancies. Health care providers sometimes advise removing diseased gallbladders before future pregnancies. ??? Eating a diet that is heavy in fried foods, fat, and refined carbohydrates, such as white breadand white rice. ??? Being obese. ??? Being older than age 40. ??? Using medicines that contain female hormones (estrogen) for a long time. ??? Losing weight quickly. ??? Having a family history of gallstones. ??? Having certain medical problems, such as: ??? Diabetes mellitus. ??? Cystic fibrosis. ??? Crohn's disease. ??? Cirrhosis or other long-term (chronic) liver disease. ??? Certain blood diseases, such as sickle cell anemia or leukemia. What are the signs or symptoms? In many cases, having gallstones causes no symptoms. When you have gallstones but do not have symptoms, you have silent gallstones. If a gallstone blocks your bile duct, it can cause a gallbladder attack. The main symptom of a gallbladder attack is sudden pain in the upper right part of the abdomen. The pain: ??? Usually comes at night or after eating. ??? Can last for one hour or more. ??? Can spread to your right shoulder, back, or chest. ??? Can feel like indigestion. This is discomfort, burning, or fullness in your upper abdomen. If the bile duct is blocked for more than a few hours, it can cause an infection or inflammation ofyour gallbladder (cholecystitis), liver, or pancreas. This can cause: ??? Nausea or vomiting. ??? Bloating. ??? Pain in your abdomen that lasts for 5 hours or longer. ??? Tenderness in your upper abdomen, often in the upper right section and under your rib cage. ??? Fever or chills. ??? Skin or the white parts of your eyes turning yellow (jaundice). This usually happens when a stone has blocked bile from passing through the common bile duct. ??? Dark urine or light-colored stools. How is this diagnosed? This condition may be diagnosed based on: ??? A physical exam. ??? Your medical history. ??? Ultrasound. ??? CT scan. ??? MRI. You may also have other tests, including: ??? Blood tests to check for signs of an infection or inflammation. ??? Cholescintigraphy, or HIDA scan. This is a scan of your gallbladder and bile ducts (biliary system) using non-harmful radioactive material and special cameras that can see the radioactive material. ??? Endoscopic retrograde cholangiopancreatogram. This involves inserting a small tube with a camera on the end (endoscope) through your mouth to look at bile ducts and check for blockages. How is this treated? Treatment for this condition depends on the severity of the condition. Silent gallstones do not need treatment. Treatment may be needed if a blockage causes a gallbladder attack or other symptoms. Treatment may include: ??? Home care, if symptoms are not severe. ??? During a simple gallbladder attack, stop eating and drinking for 12???24 hours (except for water and clear liquids). This helps to cool down your gallbladder. After 1 or 2 days, you can start to eat a diet of simple or clear foods, such as broths and crackers. ??? You may also need medicines for pain or nausea or both. ??? If you have cholecystitis and an infection, you will need antibiotics. ??? A hospital stay, if needed for pain control or for cholecystitis with severe infection. ??? Cholecystectomy, or surgery to remove your gallbladder. This is the most common treatment if all other treatments have not worked. ??? Medicines to break up gallstones. These are most effective at treating small gallstones. Medicines may be used for up to 6???12 months. ??? Endoscopic retrograde cholangiopancreatogram. A small basket can be attached to the endoscope and used to capture and remove gallstones, mainly those that are in the common bile duct. Follow these instructions at home: Medicines ??? Take aqpk-psg-cuqqoyi and prescription medicines only as told by your health care provider. ??? If you were prescribed an antibiotic medicine, take it as told by your health care provider. Donot stop taking the antibiotic even if you start to feel better. ??? Ask your health care provider if the medicine prescribed to you requires you to avoid driving or using machinery. Eating and drinking ??? Drink enough fluid to keep your urine pale yellow. This is important during a gallbladder attack. Water and clear liquids are preferred. ??? Follow a healthy diet. This includes: ??? Reducing fatty foods, such as fried food and foods high in cholesterol. ??? Reducing refined carbohydrates, such as white bread and white rice. ??? Eating more fiber. Aim for foods such as almonds, fruit, and beans. Alcohol use ??? If you drink alcohol: ??? Limit how much you use to: ??? 0???1 drink a day for non women. ??? 0???2 drinks a day for men. ??? Be aware of how much alcohol is in your drink. In the [place] one drink equals one 12 oz bottle of beer (355 mL), one 5 oz glass of wine (148 mL), or one 1?? oz glass of hard liquor (44 mL). General instructions ??? Do not use any products that contain nicotine or tobacco, such as cigarettes, e-cigarettes, andchewing tobacco. If you need help quitting, ask your health care provider. ??? Maintain a healthy weight. ??? Keep all follow-up visits as told by your health care provider. These may include consultationswith a surgeon or specialist. This is important. Where to find more information ??? National [place] of Diabetes and Digestive and Kidney Diseases: www.niddk.nih.gov Contact a health care provider if: ??? You think you have had a gallbladder attack. ??? You have been diagnosed with silent gallstones and you develop pain in your abdomen or indigestion. ??? You begin to have attacks more often. ??? You have dark urine or light-colored stools. Get help right away if: ??? You have pain from a gallbladder attack that lasts for more than 2 hours. ??? You have pain in your abdomen that lasts for more than 5 hours or is getting worse. ??? You have a fever or chills. ??? You have nausea and vomiting that do not go away. ??? You develop jaundice. Summary ??? Cholelithiasis is a disease in which gallstones form in the gallbladder. ??? This condition may be caused by an imbalance in the different parts that make bile. This can happen if your bile has too much bilirubin or cholesterol, or does not have enough bile salts. ??? Treatment for gallstones depends on the severity of the condition. Silent gallstones do not need treatment. ??? If gallstones cause a gallbladder attack or other symptoms, treatment usually involves not eating or drinking anything. Treatment may also include pain medicines and antibiotics, and it sometimesincludes a hospital stay. ??? Surgery to remove the gallbladder is common if all other treatments have not worked. This information is not intended to replace advice given to you by your health care provider. Make sure you discuss any questions you have with your health care provider. Document Revised: 09/24/2020 Document Reviewed: 09/24/2020 [email or web address] Patient Education ?? 2021 [employer]. 09/19/2022 18:07:29 Abdominal Pain, Adult Abdominal Pain, Adult Pain in the abdomen (abdominal pain) can be caused by many things. Often, abdominal pain is not serious and it gets better with no treatment or by being treated at home. However, sometimes abdominal pain is serious. Your health care provider will ask questions about your medical history and do a physical exam to try to determine the cause of your abdominal pain. Follow these instructions at home: Medicines ??? Take tbhg-oba-sjtxxes and prescription medicines only as told by your health care provider. ??? Do not take a laxative unless told by your health care provider. General instructions ??? Watch your condition for any changes. ??? Drink enough fluid to keep your urine pale yellow. ??? Keep all follow-up visits as told by your health care provider. This is important. Contact a health care provider if: ??? Your abdominal pain changes or gets worse. ??? You are not hungry or you lose weight without trying. ??? You are constipated or have diarrhea for more than 2???3 days. ??? You have pain when you urinate or have a bowel movement. ??? Your abdominal pain wakes you up at night. ??? Your pain gets worse with meals, after eating, or with certain foods. ??? You are vomiting and cannot keep anything down. ??? You have a fever. ??? You have blood in your urine. Get help right away if: ??? Your pain does not go away as soon as your health care provider told you to expect. ??? You cannot stop vomiting. ??? Your pain is only in areas of the abdomen, such as the right side or the left lower portion of the abdomen. Pain on the right side could be caused by appendicitis. ??? You have bloody or black stools, or stools that look like tar. ??? You have severe pain, cramping, or bloating in your abdomen. ??? You have signs of dehydration, such as: ??? Dark urine, very little urine, or no urine. ??? Cracked lips. ??? Dry mouth. ??? Sunken eyes. ??? Sleepiness. ??? Weakness. ??? You have trouble breathing or chest pain. Summary ??? Often, abdominal pain is not serious and it gets better with no treatment or by being treated at home. However, sometimes abdominal pain is serious. ??? Watch your condition for any changes. ??? Take wtjf-wkv-bhlquit and prescription medicines only as told by your health care provider. ??? Contact a health care provider if your abdominal pain changes or gets worse. ??? Get help right away if you have severe pain, cramping, or bloating in your abdomen. This information is not intended to replace advice given to you by your health care provider. Make sure you discuss any questions you have with your health care provider. Document Revised: 12/21/2020 Document Reviewed: 03/12/2020 [email or web address] Patient Education ?? 2021 [employer]. Follow Up Care 09/19/2022 09:05:30 With:Follow up with primary care provider Address: When:1 to 2 weeks Consult note * Event Display: Consultation Note Generic Authored Date: [id number] Physician Emergency department Note * Loli Mead MD: PERFORM Event Display: ED Note Physician Authored Date: [id number] EUGENIA KNOWLES :1965 Age:57 years Sex:Male Visit Date:09/19/2022 Primary Care Physician: Kenia Devine MD Basic Information Time Seen: Loli Mead MD / 09/19/2022 09:52 Chief Complaint Pt states he has had vomiting and diarrhea since this am History Of Present Illness: Patient reports??vomiting and diarrhea started this morning he feels like this is??different than his usual as he usually does not have diarrhea??and he has had some right upper quadrant abdominal pain over the last few days. ??Patient is supposed to have an MRCP??in the near future. ??Has had an ultrasound that showed gallstones.?? No fever no chills no ear nose or throat pain no chest pain??no cough??positive nausea vomiting diarrhea no constipation no urinary symptoms no extremity edema no skin rashes Review of Systems: see hpi for ros Physical Exam Vitals & Measurements T:??35.6?C ??(Temporal Artery)?? HR:??90??(Peripheral)?? HR:??93??(Monitored)?? RR:??28?? BP:??174/99?? SpO2:??94%?? HT:??177.800??cm?? WT:??123.83??kg??(Estimated)?? O2 Therapy:??Room air?? General: Alert and oriented, well nourished,?No??acute distress Eye: PER?Normal??conjunctiva,??No??scleral icterus HENT: Normocephalic,??nontraumatic??Normal hearing Lungs: Clear to auscultation,?Non-labored?? respiration Heart:?Normal?? rate,?Regular??rhythm,?No??murmur,?No??gallop,?No??edema Chest: wall excursion wnl no abnormal movements no obvious deformities Abdomen: Soft, moderate ruq tenderness diffuse mild tenderness in other quadrants, non-distended,?Normal?? bowel sounds,?No??masses Musculoskeletal:?Normal?? range of motion and strength,?No??tenderness,?No??swelling Skin: Skin is warm, dry and pink,?No??rashes,?No??lesions Neurologic: Awake, alert and oriented X4 Psychiatric: Cooperative, appropriate mood and affect Medical Decision Making: For MDM please see under assessment and plan Procedure No Qualifying Data Assessment/Plan 1.??Vomiting??R11.10 57-year-old man with a history of??cyclical vomiting??patient did seem to improve??here in the emergency department??with??5 mg of IV Haldol??Ativan IV??IV fluids??and IV Zofran however patient reported still feeling??nauseated.?? 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 2.??Abdominal pain??R10.9 Patient with recent history of right upper quadrant abdominal pain MRCP??is reassuring??patient with cholelithiasis??have given patient phone number for general surgery so he can follow-up??to discuss??cholecystectomy. Orders: NS w/K20 1,000 mL, Total Volume (mL): 1,000, 1,000 mL, Soln, IV, 500 mL/hr, Start Date: 09/19/22 17:17:00 EDT, 123.83 kg, Populate Charting Weight From Order, 2.47, m2 NS w/K20 1,000 mL, Total Volume (mL): 1,000, 1,000 mL, Soln, IV, 500 mL/hr, Start Date: 09/19/22 11:21:00 EDT, 123.83 kg, Populate Charting Weight From Order, 2.47, m2 Discharge Patient, 09/19/22 19:04:00 EDT, Home Independently, Constant Indicator Patient Education Cholelithiasis Abdominal Pain, Adult Follow Up With When Contact [...] Hypertensive disorder Insomnia Mild intermittent asthma Nausea and vomiting Obesity Obstructive sleep apnea [...] mL, IV NS w/K20, 1000 mL, IV !-Compazine, 10 mg, IV Push !-Haldol, 5 mg, Slow IV Push 0.9% NaCl bolus, 1 L, IV Bolus Ativan, 1 mg, IV Push Ativan, 1 mg, IV Push Ativan, 1 mg, IV Push metoprolol tartrate 1 mg/mL injectable solution, 5 mg, IV Push metoprolol tartrate 1 mg/mL injectable solution, 5 mg, IV Push metoprolol tartrate 1 mg/mL injectable solution, 5 mg, IV Push metoprolol tartrate 1 mg/mL injectable solution, 5 mg, IV Push metoprolol tartrate 1 mg/mL injectable solution, 5 mg, IV Push metoprolol tartrate 1 mg/mL injectable solution, 5 mg, IV Push ondansetron, 4 mg, IV Push Allergies PEANUT??(Anaphylaxis) EGG??(Vomiting) FISH CONTAINING PRODUCTS??(Vomiting) HOUSE DUST MITE MOLD TREE NUT??(Anaphylactic reaction) acetaminophen-hydrocodone??(Vomiting) hydroCHLOROthiazide metoclopramide??(Urticaria) Social History Alcohol Never Electronic Cigarette/Vaping Electronic Cigarette Use: Never. Employment/School Employed, Work/School description: [employer]. Home/Environment Lives with Alone. Nutrition/Health Diet: Regular. Caffeine intake amount: couple glasses of soda daily. Psychosocial Substance Use Never Tobacco Never tobacco user Tobacco Use:. Never Smokeless Tobacco use:. Family History Arteriosclerotic heart disease: Father. Depressive disorder: Father. Lab Results CBC and Differential?? LATEST RESULTS?? HISTORICAL RESULTS?? WBC?? 09/19/22 10:20?? 10.7 ??High?? 09/04/22?? 5.9?? RBC?? 09/19/22 10:20?? 4.7?? 09/04/22?? 4.7?? Hgb?? 09/19/22 10:20?? 13.3 ??Low?? 09/04/22?? 13.3 ??Low?? Hct?? 09/19/22 10:20?? 38.2 ??Low?? 09/04/22?? 39.9 ??Low?? MCV?? 09/19/22 10:20?? 80.8?? 09/04/22?? 85.1?? MCH?? 09/19/22 10:20?? 28.1?? 09/04/22?? 28.4?? MCHC?? 09/19/22 10:20?? 34.8?? 09/04/22?? 33.3?? RDW-CV?? 09/19/22 10:20?? 13.0?? 09/04/22?? 13.6?? Platelets?? 09/19/22 10:20?? 261?? 09/04/22?? 166?? Segs Man?? 09/19/22 10:20?? 85 ??High?? 06/23/22?? 81 ??High?? Lymph Man?? 09/19/22 10:20?? 9 ??Low?? 06/23/22?? 12 ??Low?? [place] Man?? 09/19/22 10:20?? 6?? 06/23/22?? 7?? Eos Man?? 09/19/22 10:20?? 0?? 06/23/22?? 0?? Baso Man?? 09/19/22 10:20?? 0?? 06/23/22?? 0?? Band Man?? 09/19/22 10:20?? 0?? 06/23/22?? 0?? Abs Neut Man?? 09/19/22 10:20?? 9.1?? 05/30/22?? 10.6?? RBC Morph?? 09/19/22 10:20?? Abnormal?? 06/23/22?? Abnormal?? Anisocyte?? 09/19/22 10:20?? Rare?? 06/23/22?? Rare?? Microcyte?? 09/19/22 10:20?? Rare?? 06/23/22?? Small? Routine Chemistry?? LATEST RESULTS?? HISTORICAL RESULTS?? Sodium Level?? 09/19/22 10:20?? 136?? 09/04/22?? 138?? Potassium Level?? 09/19/22 10:20?? 3.6?? 09/04/22?? 3.6?? Chloride Level?? 09/19/22 10:20?? 102?? 09/04/22?? 102?? CO2?? 09/19/22 10:20?? 25?? 09/04/22?? 30?? Alk Phos?? 09/19/22 10:20?? 146?? 09/04/22?? 120?? AST?? 09/19/22 10:20?? 26?? 09/04/22?? 21?? ALT?? 09/19/22 10:20?? 45?? 09/04/22?? 34?? BUN?? 09/19/22 10:20?? 12?? 09/04/22?? 17?? Glucose Level?? 09/19/22 10:20?? 179 ??High?? 09/04/22?? 225 ??High?? Creatinine Level?? 09/19/22 10:20?? 0.93?? 09/04/22?? 0.98?? eGFR AA?? 09/19/22 10:20?? 95?? 09/04/22?? 89?? eGFR Non-AA?? 09/19/22 10:20?? 95?? 09/04/22?? 89?? Calcium Level?? 09/19/22 10:20?? 9.0?? 09/04/22?? 8.6?? Protein Total?? 09/19/22 10:20?? 7.5?? 09/04/22?? 6.7?? Albumin Level?? 09/19/22 10:20?? 3.5?? 09/04/22?? 3.2 ??Low?? Bilirubin Total?? 09/19/22 10:20?? 0.6?? 09/04/22?? 1.2 ??High?? Lipase Level?? 09/19/22 10:20?? 23?? 09/04/22?? 56 ??Low? Electronically Signed on 09/19/22 07:10 PM Loli Mead MD Emergency department Discharge instructions * Loli Mead MD: PERFORM Event Display: ED Discharge Information Authored Date: [id number] EUGENIA KNOWLES :1965 Age:57 years Sex:Male Visit Date:09/19/2022 Primary Care Physician: Kenia Devine MD Discharge Instructions We would like to thank you for allowing us to assist you with your healthcare needs. The following includes patient education materials and information regarding your injury/illness. Diagnosis from Today's Visit Vomiting Abdominal pain Discharge Vitals Temperature??(Temporal Artery) 96.1 ??F (35.6 ??C) Heart Rate??(Monitored) 93 Heart Rate??(Peripheral) 90 Respiratory Rate?? 28 Blood Pressure?? 174/99?? Height?? 70.00 in (177.800 cm) Weight??(Estimated) 273.05 lb (123.83 kg) Allergies PEANUT??(Anaphylaxis) EGG??(Vomiting) FISH CONTAINING PRODUCTS??(Vomiting) HOUSE DUST MITE MOLD TREE NUT??(Anaphylactic reaction) acetaminophen-hydrocodone??(Vomiting) hydroCHLOROthiazide metoclopramide??(Urticaria) What to Do Next Instructions from Your Care Team Go home and try to get some sleep. ??If you worsen please return to the emergency department.?? On Thursday please call general surgery to schedule a follow-up??regarding your gallbladder??[phone] You Need to Schedule the Following Appointments Follow Up with??Follow up with primary care provider When:??Within 1 to 2 weeks Upcoming Scheduled Appointments Thursday 10:00 AM EST [...] Capsules Oral (given by mouth) Every day Education Materials Cholelithiasis Cholelithiasis is a disease in which gallstones form in the gallbladder. The gallbladder is an organ that stores bile. Bile is a fluid that helps to digest fats. Gallstones begin as small crystals and can slowly grow into stones. They may cause no symptoms until they block the gallbladder duct, or cystic duct, when the gallbladder tightens (contracts) after food is eaten. This can cause pain and is known as a gallbladder attack, or biliary colic. There are two main types of gallstones: ? Cholesterol stones. These are the most common type of gallstone. These stones are made of hardened cholesterol and are usually yellow-green in color. Cholesterol is a fat-like substance that is made in the liver. ? Pigment stones. These are dark in color and are made of a red-yellow substance, called bilirubin,that forms when hemoglobin from red blood cells breaks down. What are the causes? This condition may be caused by an imbalance in the different parts that make bile. This can happenif the bile: ? Has too much bilirubin. This can happen in certain blood diseases, such as sickle cell anemia. ? Has too much cholesterol. ? Does not have enough bile salts. These salts help the body absorb and digest fats. In some cases, this condition can also be caused by the gallbladder not emptying completely or often enough. This is common during . What increases the risk? The following factors may make you more likely to develop this condition: ? Being female. ? Having multiple pregnancies. Health care providers sometimes advise removing diseased gallbladders before future pregnancies. ? Eating a diet that is heavy in fried foods, fat, and refined carbohydrates, such as white bread andwhite rice. ? Being obese. ? Being older than age 40. ? Using medicines that contain female hormones (estrogen) for a long time. ? Losing weight quickly. ? Having a family history of gallstones. ? Having certain medical problems, such as: ? Diabetes mellitus. ? Cystic fibrosis. ? Crohn's disease. ? Cirrhosis or other long-term (chronic) liver disease. ? Certain blood diseases, such as sickle cell anemia or leukemia. What are the signs or symptoms? In many cases, having gallstones causes no symptoms. When you have gallstones but do not have symptoms, you have silent gallstones. If a gallstone blocks your bile duct, it can cause a gallbladder attack. The main symptom of a gallbladder attack is sudden pain in the upper right part of the abdomen. The pain: ? Usually comes at night or after eating. ? Can last for one hour or more. ? Can spread to your right shoulder, back, or chest. ? Can feel like indigestion. This is discomfort, burning, or fullness in your upper abdomen. If the bile duct is blocked for more than a few hours, it can cause an infection or inflammation ofyour gallbladder (cholecystitis), liver, or pancreas. This can cause: ? Nausea or vomiting. ? Bloating. ? Pain in your abdomen that lasts for 5 hours or longer. ? Tenderness in your upper abdomen, often in the upper right section and under your rib cage. ? Fever or chills. ? Skin or the white parts of your eyes turning yellow (jaundice). This usually happens when a stone has blocked bile from passing through the common bile duct. ? Dark urine or light-colored stools. How is this diagnosed? This condition may be diagnosed based on: ? A physical exam. ? Your medical history. ? Ultrasound. ? CT scan. ? MRI. You may also have other tests, including: ? Blood tests to check for signs of an infection or inflammation. ? Cholescintigraphy, or HIDA scan. This is a scan of your gallbladder and bile ducts (biliary system)using non-harmful radioactive material and special cameras that can see the radioactive material. ? Endoscopic retrograde cholangiopancreatogram. This involves inserting a small tube with a camera onthe end (endoscope) through your mouth to look at bile ducts and check for blockages. How is this treated? Treatment for this condition depends on the severity of the condition. Silent gallstones do not need treatment. Treatment may be needed if a blockage causes a gallbladder attack or other symptoms. Treatment may include: ? Home care, if symptoms are not severe. ? During a simple gallbladder attack, stop eating and drinking for 12???24 hours (except for water and clear liquids). This helps to cool down your gallbladder. After 1 or 2 days, you can start to eat a diet of simple or clear foods, such as broths and crackers. ? You may also need medicines for pain or nausea or both. ? If you have cholecystitis and an infection, you will need antibiotics. ? A hospital stay, if needed for pain control or for cholecystitis with severe infection. ? Cholecystectomy, or surgery to remove your gallbladder. This is the most common treatment if all other treatments have not worked. ? Medicines to break up gallstones. These are most effective at treating small gallstones. Medicines may be used for up to 6???12 months. ? Endoscopic retrograde cholangiopancreatogram. A small basket can be attached to the endoscope and used to capture and remove gallstones, mainly those that are in the common bile duct. Follow these instructions at home: Medicines ? Take pdvy-ksd-ardlnnq and prescription medicines only as told by your health care provider. ? If you were prescribed an antibiotic medicine, take it as told by your health care provider. Do notstop taking the antibiotic even if you start to feel better. ? Ask your health care provider if the medicine prescribed to you requires you to avoid driving or using machinery. Eating and drinking ? Drink enough fluid to keep your urine pale yellow. This is important during a gallbladder attack. Water and clear liquids are preferred. ? Follow a healthy diet. This includes: ? Reducing fatty foods, such as fried food and foods high in cholesterol. ? Reducing refined carbohydrates, such as white bread and white rice. ? Eating more fiber. Aim for foods such as almonds, fruit, and beans. Alcohol use ? If you drink alcohol: ? Limit how much you use to: ? 0???1 drink a day for non women. ? 0???2 drinks a day for men. ? Be aware of how much alcohol is in your drink. In the [place] one drink equals one 12 oz bottle of beer (355 mL), one 5 oz glass of wine (148 mL), or one 1?? oz glass of hard liquor (44 mL). General instructions ? Do not use any products that contain nicotine or tobacco, such as cigarettes, e- cigarettes, and chewing tobacco. If you need help quitting, ask your health care provider. ? Maintain a healthy weight. ? Keep all follow-up visits as told by your health care provider. These may include consultations with a surgeon or specialist. This is important. Where to find more information ? National [place] of Diabetes and Digestive and Kidney Diseases: www.niddk.nih.gov Contact a health care provider if: ? You think you have had a gallbladder attack. ? You have been diagnosed with silent gallstones and you develop pain in your abdomen or indigestion. ? You begin to have attacks more often. ? You have dark urine or light-colored stools. Get help right away if: ? You have pain from a gallbladder attack that lasts for more than 2 hours. ? You have pain in your abdomen that lasts for more than 5 hours or is getting worse. ? You have a fever or chills. ? You have nausea and vomiting that do not go away. ? You develop jaundice. Summary ? Cholelithiasis is a disease in which gallstones form in the gallbladder. ? This condition may be caused by an imbalance in the different parts that make bile. This can happenif your bile has too much bilirubin or cholesterol, or does not have enough bile salts. ? Treatment for gallstones depends on the severity of the condition. Silent gallstones do not need treatment. ? If gallstones cause a gallbladder attack or other symptoms, treatment usually involves not eating or drinking anything. Treatment may also include pain medicines and antibiotics, and it sometimes includes a hospital stay. ? Surgery to remove the gallbladder is common if all other treatments have not worked. This information is not intended to replace advice given to you by your health care provider. Make sure you discuss any questions you have with your health care provider. Document Revised: 09/24/2020 Document Reviewed: 09/24/2020 [employer] Patient Education ?? [employer] Abdominal Pain, Adult Pain in the abdomen (abdominal pain) can be caused by many things. Often, abdominal pain is not serious and it gets better with no treatment or by being treated at home. However, sometimes abdominal pain is serious. Your health care provider will ask questions about your medical history and do a physical exam to try to determine the cause of your abdominal pain. Follow these instructions at home: Medicines ? Take glpl-ijy-ynlvtva and prescription medicines only as told by your health care provider. ? Do not take a laxative unless told by your health care provider. General instructions ? Watch your condition for any changes. ? Drink enough fluid to keep your urine pale yellow. ? Keep all follow-up visits as told by your health care provider. This is important. Contact a health care provider if: ? Your abdominal pain changes or gets worse. ? You are not hungry or you lose weight without trying. ? You are constipated or have diarrhea for more than 2???3 days. ? You have pain when you urinate or have a bowel movement. ? Your abdominal pain wakes you up at night. ? Your pain gets worse with meals, after eating, or with certain foods. ? You are vomiting and cannot keep anything down. ? You have a fever. ? You have blood in your urine. Get help right away if: ? Your pain does not go away as soon as your health care provider told you to expect. ? You cannot stop vomiting. ? Your pain is only in areas of the abdomen, such as the right side or the left lower portion of the abdomen. Pain on the right side could be caused by appendicitis. ? You have bloody or black stools, or stools that look like tar. ? You have severe pain, cramping, or bloating in your abdomen. ? You have signs of dehydration, such as: ? Dark urine, very little urine, or no urine. ? Cracked lips. ? Dry mouth. ? Sunken eyes. ? Sleepiness. ? Weakness. ? You have trouble breathing or chest pain. Summary ? Often, abdominal pain is not serious and it gets better with no treatment or by being treated at home. However, sometimes abdominal pain is serious. ? Watch your condition for any changes. ? Take ltzh-kot-vifnspb and prescription medicines only as told by your health care provider. ? Contact a health care provider if your abdominal pain changes or gets worse. ? Get help right away if you have severe pain, cramping, or bloating in your abdomen. This information is not intended to replace advice given to you by your health care provider. Make sure you discuss any questions you have with your health care provider. Document Revised: 12/21/2020 Document Reviewed: 03/12/2020 [employer] Patient Education ?? [employer] Tests Performed Medications and Immunizations Administered Given NS w/K20, 1000 mL, IV NS w/K20, 1000 mL, IV !-Compazine, 10 mg, IV Push !-Haldol, 5 mg, Slow IV Push 0.9% NaCl bolus, 1 L, IV Bolus Ativan, 1 mg, IV Push Ativan, 1 mg, IV Push Ativan, 1 mg, IV Push metoprolol tartrate 1 mg/mL injectable solution, 5 mg, IV Push metoprolol tartrate 1 mg/mL injectable solution, 5 mg, IV Push metoprolol tartrate 1 mg/mL injectable solution, 5 mg, IV Push metoprolol tartrate 1 mg/mL injectable solution, 5 mg, IV Push metoprolol tartrate 1 mg/mL injectable solution, 5 mg, IV Push metoprolol tartrate 1 mg/mL injectable solution, 5 mg, IV Push ondansetron, 4 mg, IV Push Lab Test Name Test Result Date/Time WBC 10.7 x10^3/mcL 09/19/2022 10:20 EDT RBC 4.7 x10^6/mcL 09/19/2022 10:20 EDT Hgb 13.3 g/dL 09/19/2022 10:20 EDT Hct 38.2 % 09/19/2022 10:20 EDT MCV 80.8 09/19/2022 10:20 EDT MCH 28.1 pg 09/19/2022 10:20 EDT MCHC 34.8 g/dL 09/19/2022 10:20 EDT RDW-CV 13.0 % 09/19/2022 10:20 EDT Platelets 261 x10^3/mcL 09/19/2022 10:20 EDT Segs Man 85 % 09/19/2022 10:20 EDT Lymph Man 9 % 09/19/2022 10:20 EDT [place] Man 6 % 09/19/2022 10:20 EDT Eos Man 0 % 09/19/2022 10:20 EDT Baso Man 0 % 09/19/2022 10:20 EDT Band Man 0 % 09/19/2022 10:20 EDT Abs Neut Man 9.1 x10^3/mcL 09/19/2022 10:20 EDT RBC Morph Abnormal 09/19/2022 10:20 EDT Anisocyte Rare 09/19/2022 10:20 EDT Microcyte Rare 09/19/2022 10:20 EDT Sodium Level 136 mmol/L 09/19/2022 10:20 EDT Potassium Level 3.6 mmol/L 09/19/2022 10:20 EDT Chloride Level 102 mmol/L 09/19/2022 10:20 EDT CO2 25 mmol/L 09/19/2022 10:20 EDT Alk Phos 146 unit/L 09/19/2022 10:20 EDT AST 26 unit/L 09/19/2022 10:20 EDT ALT 45 unit/L 09/19/2022 10:20 EDT BUN 12 mg/dL 09/19/2022 10:20 EDT Glucose Level 179 mg/dL 09/19/2022 10:20 EDT Creatinine Level 0.93 mg/dL 09/19/2022 10:20 EDT eGFR AA 95 09/19/2022 10:20 EDT eGFR Non-AA 95 09/19/2022 10:20 EDT Calcium Level 9.0 mg/dL 09/19/2022 10:20 EDT Protein Total 7.5 g/dL 09/19/2022 10:20 EDT Albumin Level 3.5 g/dL 09/19/2022 10:20 EDT Bilirubin Total 0.6 mg/dL 09/19/2022 10:20 EDT Lipase Level 23 unit/L 09/19/2022 10:20 EDT Patient/Traveling Engineer Signature Patient Name:EUGENIA KNOWLES I have received this information and my questions have been answered. Patient/Traveling Engineer Name: Patient/Traveling Engineer Signature: Relationship to Patient: Witness Name/Signature: Date: Electronically Signed on: 09/19/2022 19:08 EDTSigned by: Emergency department Note * Valentine Rg: PERFORM Event Display: ED Notes Authored Date: [id number] Patient Care team information Personnel Name: Kenia Devine MD Address: Address: [place] [address]-
--- OUTSIDE RECORDS SUMMARY | 2024-07-07 11:42 | XMS_ITS | Continuity of Care Document ---
Author Organization [facility] Address [address] [place] [address] Care Team Providers Care Survey Analyst Name Role Phone Kenia Devine Primary Care Physician Encounter [facility] Date(s): 03/03/23 - 03/03/[address] [id number] Encounter Diagnosis Procedure and treatment not carried out due to patient leaving prior to being seen by health care provider(Final) - Discharge Disposition: Left Against Medical Advice Attending Physician: Tsering Mcmahon MD Admitting Physician: [...] MRI MRCP w/o Contrast 09/16/22 Functional Status 03/03/23 Family Member Travel History No recent t [...] nausea/vomiting, # 30 supp, 0 Refill(s), Pharmacy: [facility], 178, cm, 09/04/22 7:09:00 EDT, Height/Length Dosing, 119, kg, 09/04/22 7:09:00 EDT, Weight Dosing Start Date: 09/16/22 Status: Ordered Albuterol (Eqv-ProAir HFA) 90 mcg/inh inhalation aerosol 180 mcg 2 puffs, Inhale, every 4 hr, PRN not specified, # 18 g, 0 Refill(s), Pharmacy: [facility], 178, cm, 12/13/22 13:06:00 EST, Height/Length Dosing, 126, kg, 12/13/22 13:06:00 EST, Weight Dosing Start Date: 12/16/22 Status: Ordered amitriptyline 25 mg oral tablet 1 tab, Oral, every night at bedtime, # 90 tab, 1 Refill(s), Pharmacy: [facility], 178, cm, 12/13/22 13:06:00 EST, Height/Length [...] resolved, # 30 tab, 0 Refill(s), Pharmacy: [facility], 178, cm, 12/13/22 13:06:00 EST, Height/Length Dosing, 126,... Start Date: 01/27/23 Status: Ordered capsaicin 0.025% topical cream 1 barrera, Topical, TID, PRN other (see comment), APPLY TO THE AFFECTED AREA(S) NEEDED Start Date: 07/19/22 Status: Ordered EpiPen 2-Flip 0.3 mg injectable kit 0.3 mg =, IM, Once, # 1 EA, 0 Refill(s), Pharmacy: [facility], 177.8, cm, 06/01/22 17:05:00 EDT, Height/Length Dosing, 117.93, kg, 06/01/22 17:05:00 EDT, Weight Dosing Start Date: 06/04/22 Status: Ordered escitalopram 20 mg oral tablet 20 mg = 1 tab, Oral, every morning, # 30 tab, 0 Refill(s), Pharmacy: [facility], 178, cm,12/13/22 13:06:00 EST, Height/Length Dosing, [...] BID, # 60 cap, 0 Refill(s), Pharmacy: [facility], 178, cm, 12/13/22 13:06:00 EST, Height/Length Dosing, 126, kg, 12/13/22 13:06:00 EST, Weight Dosing Start Date: 02/04/23 Status: Ordered theodora oral capsule See Instructions, take 1 tablet on tongue at onset of nausea. Repeat every 6 hours as needed, # 20 tab, 0 Refill(s), Pharmacy: [facility], 178, cm, 08/13/22 8:42:00 EDT, Height/Length Dosing, 117.9, kg, 08/13/22 8:42:00 EDT, Weight Dosing Start Date: 08/13/22 Status: Ordered haloperidol 1 mg oral tablet See Instructions, 1 tab Oral at onset of cyclical vomiting syndrome, # 30 tab, 0 Refill(s), Pharmacy: [facility], 178, cm, 12/13/22 13:06:00 EST, Height/Length Dosing, 126, kg, 12/13/22 13:06:00 EST, Weight Dosing Start Date: 02/18/23 Status: Ordered ibuprofen 800 mg oral tablet 800 mg = 1 tab, Oral, every 8 hr, PRN other (see comment), as needed Start Date: 05/01/22 Status: Ordered lactobacillus acidophilus-lactobacillus rhamnosus oral capsule 1 cap, Oral, Daily, contents of capsule can be sprinkled into cold food or beverages, # 30 cap, 2 Refill(s), Pharmacy: [facility], 178, cm, 10/30/22 13:49:00 EST, Height/Length Dosing, 126,kg, 10/30/22 13:49:00 EST, Weight Dosing Start Date: 11/21/22 Stop Date: 02/19/23 Status: Ordered lisinopril 10 mg oral tablet 10 mg = 1 tab, Oral, Daily, # 90 tab, 0 Refill(s), Pharmacy: [facility], 178, cm, 12/13/22 13:06:00 EST, Height/Length Dosing, 126, kg, 12/13/22 13:06:00 EST, Weight Dosing Start Date: 12/16/22 Status: Ordered melatonin 3 mg oral tablet 9 mg = 3 tab, Oral, every day at bedtime Start Date: 07/19/22 Status: Ordered metoprolol succinate 50 mg oral capsule, extended release 50 mg = 1 cap, Oral, Daily, # 90 cap, 3 Refill(s), Pharmacy: [facility], 178, cm, 08/13/22 8:42:00 EDT, Height/Length Dosing, 117.9, kg, 08/13/22 8:42:00 EDT, Weight Dosing Start Date: 09/03/22 Status: Ordered mirtazapine 30 mg oral tablet 30 mg = 1 tab, Oral, every night at bedtime, # 30 tab, 2 Refill(s), Pharmacy: [facility],178, cm, 10/30/22 13:49:00 EST, Height/Length Dosing, 126, kg, 10/30/22 13:49:00 EST, Weight Dosing Start Date: 11/21/22 Stop Date: 02/19/23 Status: Ordered omeprazole 40 mg oral delayed release capsule 40 mg = 1 cap, Oral, Daily Start Date: 05/01/22 Status: Ordered omeprazole 40 mg oral delayed release capsule See Instructions, TAKE ONE CAPSULE BY MOUTH EVERY DAY, # 90 cap, 3 Refill(s), Pharmacy: [facility], 178, cm, 12/13/22 13:06:00 EST, Height/Length Dosing, 126, kg, 12/13/22 13:06:00 EST, Weight Dosing Start Date: 02/25/23 Status: Ordered penicillin V potassium 500 mg oral tablet 500 mg = 1 tab, Oral, TID, # 60 tab, 0 Refill(s) Start Date: 01/26/23 Status: Ordered risperiDONE 1 mg oral tablet 1 mg = 1 tab, Oral, every night at bedtime, # 30 tab, 2 Refill(s), Pharmacy: [facility], 178, cm, 10/30/22 13:49:00 EST, Height/Length Dosing, 126, kg, 10/30/22 13:49:00 EST, Weight Dosing Start Date: 11/21/22 Stop Date: 02/19/23 Status: Ordered Symbicort 80 mcg-4.5 mcg/inh inhalation aerosol 2 puffs, Inhale, BID, # 10.2 g, 5 Refill(s), Pharmacy: [facility], 177.8, cm, 09/22/22 6:14:00 EST, Height/Length [...] Temperature Temporal Artery [36-38 Deg C ] 36.7 Deg C (03/03/23 4:40 PM) Weight Dosing 128.00 kg (03/03/23 4:50 PM) Weight Estimated 128.00 kg (03/03/23 4:40 PM) Height/Length Dosing 178.000 cm (03/03/23 4:50 PM) Height/Length Estimated 178.000 cm (03/03/23 4:40 PM) Social History Social History Type Response Smoking Status Never; Smoking tobac co use: Never tobacco user entered on: 06/16/22 Sex Male Patient Care team information Care Team Personnel Name: Kenia Devine MD Position: Physician Member Role: Informed Provider Address: Address: [address] Name: Veronique Rowan NP Position: Physician Member Role: Nurse Practitioner Address: Address: [address] [place] [address] Name: Irma Monteiro DIRECTOR DIGITAL CATALOGUE Position: Physician Member Role: Nurse Practitioner Address: Address: [address] [place] [address] [place] [address]- Care Team Related Persons Name: SALO BARBOSA Name: JANET BARBOSA
--- OUTSIDE RECORDS SUMMARY | 2024-07-07 11:42 | XMS_ITS | Continuity of Care Document ---
Author Organization [facility] Address [address] [place] [address] Care Team Providers Care Helicopter Specialist Name Role Phone Kenia Devine Primary Care Physician Encounter [facility]_[place] Date(s): 08/03/23 - 08/03/23 [facility] [address] [place] [address] Discharge Disposition: Home Allergies, Adverse Reactions, Alerts [...] Future Scheduled Tests Radiology* CT Chest w/ + w/o Contrast 08/03/23 Immunizations Given and Recorded Vaccine Date Status [...] NEEDED, # 8.5 g, 7 Refill(s), Pharmacy: [facility], 178, cm, 05/03/23 10:32:00 EDT, Height/Length Dosing, 125.7, kg, 05/03/23 10:32:00 EDT, Weight Dosing Start Date: 07/10/23 Status: Ordered amitriptyline 75 mg oral tablet 75 mg = 1 tab, Oral, Daily, # 90 tab, 3 Refill(s), 07/30/24 3:51:00 PM CDT, Pharmacy: [facility], 177.8, cm, 07/30/23 7:34:00 EDT, Height/Length Dosing, 121.3, kg, 07/30/23 7:34:00 EDT, Weight Dosing Start Date: 07/30/23 Stop Date: 07/30/24 Status: Ordered Ativan 1 mg oral tablet 1 mg = 1 tab, Oral, Daily, PRN nausea/vomiting, Use as needed during cyclical vomiting episodes, 1 mg tab every 4 hrs PRN until resolved, # 30 tab, 0 Refill(s), Pharmacy: [facility], 178, cm, 05/03/23 10:32:00 EDT, Height/Length Dosing, 125.7, kg, 05/03/23 10:32:00 EDT, Weight Dosing Start Date: 07/21/23 Status: Ordered capsaicin 0.025% topical cream 1 barrera, Topical, TID, PRN other (see comment), APPLY TO THE AFFECTED AREA(S) NEEDED Start Date: 07/19/22 Status: Ordered EpiPen 2-Flip 0.3 mg injectable kit 0.3 mg =, IM, Once, # 1 EA, 0 Refill(s), Pharmacy: [facility], 177.8, cm, 06/01/22 17:05:00 EDT, Height/Length Dosing, 117.93, kg, 06/01/22 17:05:00 EDT, Weight Dosing Start Date: 06/04/22 Status: Ordered escitalopram 20 mg oral tablet 20 mg = 1 tab, Oral, every morning, # 30 tab, 2 Refill(s), Pharmacy: [facility], 178, cm,05/03/23 10:32:00 EDT, Height/Length Dosing, 125.7, kg, 05/03/23 10:32:00 EDT, Weight Dosing Start Date: 05/07/23 Stop Date: 08/05/23 Status: Ordered haloperidol 2 mg oral tablet 2 mg = 1 tab, Oral, QID, PRN nausea, # 45 tab, 1 Refill(s), 07/30/24 3:50:00 PM CDT, Pharmacy: [facility], 177.8, cm, 07/30/23 7:34:00 EDT, Height/Length Dosing, 121.3, kg, 07/30/23 7:34:00 EDT, Weight Dosing Start Date: 07/30/23 Stop Date: 07/30/24 Status: Ordered haloperidol 2 mg oral tablet 2 mg = 1 tab, Oral, every 6 hr, PRN nausea/vomiting, # 60 tab, 11 Refill(s), 08/01/24 7:57:00 AM CDT, Pharmacy: [facility], 177, cm, 08/01/23 8:37:00 EDT, Height/Length [...] beverages, # 30 cap, 2 Refill(s), Pharmacy: [facility], 178, cm, 10/30/22 13:49:00 EST, Height/Length Dosing, 126,kg, 10/30/22 13:49:00 EST, Weight Dosing Start Date: 11/21/22 Stop Date: 02/19/23 Status: Ordered lisinopril 10 mg oral tablet 1 tab, Oral, Daily, # 90 tab, 3 Refill(s), Pharmacy: [facility], 178, cm, 05/03/23 10:32:00 EDT, Height/Length Dosing, 125.7, kg, 05/03/23 10:32:00 EDT, Weight Dosing Start Date: 06/11/23 Status: Ordered melatonin 3 mg oral tablet 9 mg = 3 tab, Oral, every day at bedtime Start Date: 07/19/22 Status: Ordered metoprolol succinate 50 mg oral capsule, extended release 50 mg = 1 cap, Oral, Daily, # 90 cap, 3 Refill(s), Pharmacy: [facility], 178, cm, 08/13/22 8:42:00 EDT, Height/Length Dosing, 117.9, kg, 08/13/22 8:42:00 EDT, Weight Dosing Start Date: 09/03/22 Status: Ordered mirtazapine 30 mg oral tablet 30 mg = 1 tab, Oral, every night at bedtime, # 30 tab, 2 Refill(s), Pharmacy: [facility],177.8, cm, 04/20/23 7:11:00 EDT, Height/Length Dosing, 128.37, kg, 04/20/23 7:11:00 EDT, Weight Dosing Start Date: 04/30/23 Stop Date: 07/29/23 Status: Ordered omeprazole 40 mg oral delayed release capsule See Instructions, TAKE ONE CAPSULE BY MOUTH EVERY DAY, # 90 cap, 3 Refill(s), Pharmacy: [facility], 178, cm, 12/13/22 13:06:00 EST, Height/Length Dosing, 126, kg, 12/13/22 13:06:00 EST, Weight Dosing Start Date: 02/25/23 Status: Ordered ondansetron 4 mg oral tablet, disintegrating 4 mg = 1 tab, Oral, every 6 hr, PRN as needed for nausea/vomiting, X 10 days, # 15 tab, 0 Refill(s), 08/11/23 4:07:00 PM CDT, Pharmacy: [facility], 177, cm, 08/01/23 8:37:00 EDT, Height/Length Dosing, 129, kg, 08/01/23 8:37:00 EDT, Weight Dosing Start Date: 08/01/23 Stop Date: 08/11/23 Status: Ordered prochlorperazine 10 mg oral tablet 10 mg = 1 tab, Oral, QID, PRN nausea, # 20 tab, 0 Refill(s), Pharmacy: [facility], 177, cm, 08/01/23 8:37:00 EDT, Height/Length Dosing, 129, kg, 08/01/23 8:37:00 EDT, Weight Dosing Start Date: 08/01/23 Status: Ordered risperiDONE 1 mg oral tablet 1 mg = 1 tab, Oral, every night at bedtime, # 30 tab, 2 Refill(s), Pharmacy: [facility], 178, cm, 05/03/23 10:32:00 EDT, Height/Length Dosing, 125.7, kg, 05/03/23 10:32:00 EDT, Weight Dosing Start Date: 05/07/23 Stop Date: 08/05/23 Status: Ordered Symbicort 80 mcg-4.5 mcg/inh inhalation aerosol 2 puffs, Inhale, BID, # 10.2 g, 5 Refill(s), Pharmacy: [facility], 177.8, cm, 09/22/22 6:14:00 EST, Height/Length [...] Member Role: Informed Provider Address: Address: [address] Name: Veronique Rowan [employer]PH[employer]ED GOODS CRAFTER Position: Physician Member Role: Nurse Practitioner Address: Address: [address] Name: Irma Monteiro [employer] CRAFTER Position: Physician Member Role: Nurse Practitioner Address: Address: [address] [place] [address] Care Team Related Persons Name: SALO BARBOSA Name: JANET BARBOSA
--- OUTSIDE RECORDS SUMMARY | 2024-07-07 11:42 | XMS_ITS | Encounter Summary ---
Author Organization [facility] [place] [address] Care Team Providers Care Yard General Car Supervisor Name Role Phone Kenia Devine MD Primary Care Provider [phone] Encounter Details Date Type Department Care Team (Late st Contact Info) Description 05/10/2024 Telephone [place] [id number] Meghan Victoria, RN Social History Tobacco Use Types Packs/Day Years Used Date Smoking Tobacco: Never Smokeless Tobacco: Never Alcohol Use Standard Drinks/Week Comments Not Currently 0 (1 standard drink = 0.6 oz pur e alcohol) [facility] Inpatient Questions Answer Date Recorded Does Anyone Try to Keep You From Having Contact with Others or Doing Things Outside Your Home? 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 He has had some slight wheezing but stated he used his pump with positive results. I instructed Joe if he feels his wheezing return or treatment is ineffective he should contact his PCP. He agreed to the plan and stated he is doing well. Pain: ibuprofen and tylenol-Joe stated pain is minimum Extra strength tylenol 1000 mg alternate with ibuprofen 200 mg (2-3 tabs) every 3 hours : ex. Schedule - Extra strength Tylenol 1000 mg at 8am, ibuprofen 200 mg (2-3 tabs) at 11 am, then Extra strength tylenol 1000 mg at 2 pm, then ibuprofen 200 mg (2-3 tabs) at 5 pm. Do not exceed more than 4000 mg of Extra strength tylenol in 24 hour period. GI: appetite: good Diet: Regular Hydration: good Voiding: without any difficulty BM: without any difficulty - yesterday - What is the Bowel regimen: Miralax Respiratory: using IS as directed SOB: denies Difficulty breathing: denies Coughing with or without sputum: denies Activity: up and about without any difficulty Integumentary: Incisions without any redness, swelling, drainage, fevers, chills, sweats, site hot to touch, bruising and bleeding Plan: RTC on 05/26/[address] Enriquez Patient is aware of appointments and know to call with any questions or concerns. documented in this encounter Plan of Treatment Not on file documented as of this encounter Visit Diagnoses Not on filedocumented in this encounter Care Teams Yard General Car Supervisor Relationship Specialty Start Date End Date Kenia Devine MD [address] [place] [address] [place] [address] PCP - General Family Medicine 06/02/22 documented as of this encounter
--- OUTSIDE RECORDS SUMMARY | 2024-07-07 11:42 | XMS_ITS | Encounter Summary ---
Author Organization [facility] Address [facility] [address] [place] [address] Care Team Providers Care Sugar Grinder Name Role Phone Kenia Devine MD Primary Care Provider [phone] Encounter Details Date Type Department Care Team (Latest Contact Info) Description 05/26/2024 11:00 AM EDT - 05/26/2024 11:59 PM EDT Hospital Encounter XRay at [facility] [place] [phone] Mediastinal mass Discharge Disposition: Home Social History Tobacco Use Types Packs/Day Years Used Date Smoking Tobacco: Never Smokeless Tobacco: Never Alcohol Use Standard Drinks/Week Comments Not Currently 0 (1 standard drink = 0.6 oz pur e alcohol) [facility] Inpatient Questions Answer Date [...] on file documented as of this encounter Medications at Time of Discharge Medication Sig Dispensed Refills Start Date End Date oxyCODONE (Roxicodone) 5 mg tablet Take 1 tablet by mouth every 4 hours as needed for Pain. 5 tablet 05/07/2024 albuteroL 90 mcg/actuation inhaler (HFA) Inhale 2 puffs into the lungs every 4 hours as needed for Wheezing. Use with Spacer traMADoL (Ultram) 50 mg Tablet Take 1 tablet by mouth every 6 hours as needed for Pain. 10 tablet 01/31/2022 amLODIPine (Norvasc) 10 mg Tablet TAKE ONE TABLET BY MOUTH EVERY DAY 01/17/2022 ciprofloxacin-dexamethas one (Ciprodex) 0.3-0.1 % Drops, Suspension INSTILL 4 DROPS INTO AFFECTED EAR(S) TWO TIMES A DAY FOR 7 DAYS 01/22/2022 predniSONE (Deltasone) 10 mg Tablet TAKE 5 TABLETS BY MOUTH FOR 3 DAYS, THEN TAKE 4 TABLETS FOR 3 DAYS, THEN 3 TABLETS FOR 3 DAYS, THEN 2 TABLETS FOR 3 DAYS, THEN 1 TABLET FOR 09/26/2021 SUMAtriptan (IMITREX) 20 mg/actuation [place], Non-Aerosol as needed. 01/23/2022 escitalopram (Lexapro) 10 mg Tablet Take 10 mg by mouth daily. baclofen (Lioresal) 10 mg Tablet TAKE ONE TABLET BY MOUTH THREE TIMES A DAY NEEDED FOR 4 DAYS 10/17/2021 cyclobenzaprine (Flexeril) 10 mg Tablet as needed. 12/10/2021 nabumetone (Relafen) 500 mg Tablet TAKE ONE TABLET BY MOUTH TWICE A DAY NEEDED 12/10/2021 ondansetron ODT (Zofran-ODT) 4 mg Tablet, Rapid Dissolve DISSOLVE ONE TABLET ON TONGUE EVERY 6 HOURS NEEDED 11/28/2021 tamsulosin (Flomax) 0.4 mg Capsule TAKE ONE CAPSULE BY MOUTH EVERY DAY 09/18/2021 amitriptyline (Elavil) 10 mg Tablet Take 10 mg by mouth nightly. prochlorperazine (Compazine) [address] 25 mg rectally every 12 hours as needed for Nausea. budesonide-formoteroL (SYMBICORT) 80-4.5 mcg/actuation HFA Aerosol Inhaler Inhale into the lungs as needed. prochlorperazine (Compazine) 10 mg Tablet Take 10 mg by mouth as needed for Nausea. ondansetron (Zofran) 4 mg Tablet Take 4 mg by mouth as needed for Nausea. omeprazole (PriLOSEC) 20 mg Capsule, Delayed Release(E.C.) Take 40 mg by mouth daily. buPROPion (WELLBUTRIN XL) 150 mg Tablet Extended Release 24 hr 0 05/02/2018 mirtazapine (REMERON) 15 mg Tablet 30 mg. 0 05/26/2018 risperiDONE (RISPERDAL) 1 mg Tablet 0 05/26/2018 PROAIR HFA 90 mcg/actuation HFA Aerosol Inhaler INHALE 2 PUFFS EVERY 4 HOURS 0 03/30/2018 EPINEPHrine (ADRENALIN) 0.1 mg/mL (1:10,000) Syringe Inject as directed as needed. melatonin 5 mg Tablet Take 10 mg by mouth nightly. documented as of this encounter Plan of Treatment Not on file documented as of this encounter Procedures Procedure Name Priority Date/Time Associated Diagnosis Comments XR CHEST PA AND LATERAL Routine 05/26/2024 11:11 AM EDT Mediastinal mass documented in this encounter Results * XR Chest PA & Lateral (Generic) (05/26/2024 11:11 AM EDT) WORKSTATION ID [id number] RAD Anatomical Region Laterality Modality Chest N/A Digital Radiogra phy Impressions 05/26/2024 4:06 PM EDT No acute findings . Resolution of postoperative findings Thank you for letting us participate in the care of this patient. ??If you are a health care provider and have any questions regarding this report, please contact the number below. ??For patients who have questions please contact the health respiratory care instructor that requested your imaging first. ? Narrative 05/26/2024 4:06 PM EDT EXAMINATION: XR CHEST PA AND LATERAL (GENERIC) CLINICAL HISTORY: s/p LEFT VATS thymectomy TECHNIQUE: PA and Lateral COMPARISONS: 05/06/2024 FINDINGS: The heart and mediastinum are normal. There is no pulmonary edema, pneumonia, pleural effusion or pneumothorax. The lungs are now much better aerated and the pleural effusions and opacities seen previously have resolved Procedure Note Kailee Underwood MD - 05/26/2024 EXAMINATION: XR CHEST PA AND LATERAL (GENERIC) CLINICAL HISTORY: s/p LEFT VATS thymectomy TECHNIQUE: PA and Lateral COMPARISONS: 05/06/2024 FINDINGS: The heart and mediastinum are normal. There is no pulmonary edema,pneumonia, pleural effusion or pneumothorax. The lungs are now much better aeratedand the pleural effusions and opacities seen previously have resolved IMPRESSION No acute findings . Resolution of postoperative findings Thank you for letting us participate in the care of this patient. If youare a health care provider and have any questions regarding this report,please contact the number below. For patients who have questions please contactthe health respiratory care instructor that requested your imaging first. Chace Enriquez MD IMG DX ORDERABLES documented in this encounter Visit Diagnoses Diagnosis Mediastinal mass Swelling, mass, or lump in chest documented in this encounter Care Teams Sugar Grinder Relationship Specialty Start Date End Date Kenia Devine MD [address] [place] [address] [place] [address] PCP - General Family Medicine 06/02/22 documented as of this encounter
--- OUTSIDE RECORDS SUMMARY | 2024-07-07 11:42 | XMS_ITS | Continuity of Care Document ---
Author Organization [facility] Address [address] [place] [address] Care Team Providers Care Dinkey Operator Slag Name Role Phone Kenia Devine Primary Care Physician Encounter [facility]CT[facility]_[place] Date(s): 09/04/22 - 09/04/22 [facility] [address] [place] [address] [place] Encounter Diagnosis Right upper quadrant pain(Discharge Diagnosis) - 09/04/22 Discharge Disposition: Home or Self Care Attending [...] Assessment and Plan Future Appointments Functional Status 09/04/22 Family Member Travel History No recent t [...] rectal suppository 25 mg = 1 supp, OK, every 4 hr, PRN as needed for nausea/vomiting, # 12 supp, 0 Refill(s), Pharmacy: [facility], 178, cm, 06/27/22 6:14:00 EDT, Height/Length Dosing, 118.85, kg, 06/27/22 6:14:00 EDT, Weight Dosing Start Date: 06/27/22 Status: Ordered !-Zofran ODT 4 mg oral tablet, disintegrating 4 mg = 1 tab, Oral, every 8 hr, PRN as needed for nausea/vomiting, # 20 tab, 0 Refill(s), Pharmacy:[facility], 178, cm, 08/13/22 8:42:00 EDT, Height/Length Dosing, 117.9, kg, 08/13/22 8:42:00 EDT, Weight Dosing Start Date: 08/14/22 Status: Ordered Albuterol (Eqv-ProAir HFA) 90 mcg/inh inhalation aerosol 180 mcg 2 puffs, Inhale, every 4 hr, PRN not specified, # 18 g, 0 Refill(s), Pharmacy: [facility], 177, cm, 06/07/22 17:11:00 EDT, Height/Length Dosing, 119, kg, 06/07/22 17:11:00 EDT, Weight Dosing Start Date: 06/16/22 Status: Ordered amitriptyline 25 mg oral tablet 25 mg = 1 tab, Oral, every night at bedtime, # 90 tab, 1 Refill(s), Pharmacy: [facility],177.8, cm, 07/08/22 7:12:00 EDT, Height/Length Dosing, 117.93, kg, 07/08/22 7:12:00 EDT, Weight Dosing Start Date: 07/16/22 Status: Ordered amLODIPine 10 mg oral tablet 10 mg = 1 tab, Oral, Daily Start Date: 05/01/22 Status: Ordered aprepitant 80 mg oral capsule 80 mg = 1 cap, Oral, every morning, # 30 cap, 0 Refill(s), Pharmacy: [facility], 177.8, cm, 07/08/22 7:12:00 EDT, Height/Length Dosing, 117.93, kg, 07/08/22 7:12:00 EDT, Weight Dosing Start Date: 07/10/22 Status: Ordered baclofen 10 mg oral tablet 10 mg = 1 tab, Oral, TID, PRN other (see comment), as needed, # 21 tab, 0 Refill(s), Pharmacy: [facility], 177.8, cm, 04/12/22 11:32:00 EDT, Height/Length Dosing, 117, kg, 04/12/22 11:32:00EDT, Weight Dosing Start Date: 05/26/22 Status: Ordered capsaicin 0.025% topical cream 1 barrera, Topical, TID, PRN other (see comment), APPLY TO THE AFFECTED AREA(S) NEEDED Start Date: 07/19/22 Status: Ordered Carafate 1 g oral tablet 1 g = 1 tab, Oral, BID, # 20 cap, 0 Refill(s), Pharmacy: [facility], 178, cm, 08/13/22 8:42:00 EDT, Height/Length [...] Once, # 1 EA, 0 Refill(s), Pharmacy: [facility], 177.8, cm, 06/01/22 17:05:00 EDT, Height/Length Dosing, 117.93, kg, 06/01/22 17:05:00 EDT, Weight Dosing Start Date: 06/04/22 Status: Ordered escitalopram 20 mg oral tablet 20 mg = 1 tab, Oral, every morning, # 30 tab, 2 Refill(s), Pharmacy: [facility], 178, cm,08/12/22 6:44:00 EDT, Height/Length Dosing, 117.9, kg, 08/12/22 6:44:00 EDT, Weight Dosing Start Date: 08/12/22 Stop Date: 11/10/22 Status: Ordered theodora oral capsule See Instructions, take 1 tablet on tongue at onset of nausea. Repeat every 6 hours as needed, # 20 tab, 0 Refill(s), Pharmacy: [facility], 178, cm, 08/13/22 8:42:00 EDT, Height/Length [...] Daily, # 90 cap, 3 Refill(s), Pharmacy: [facility], 178, cm, 08/13/22 8:42:00 EDT, Height/Length [...] bedtime, # 30 tab, 2 Refill(s), Pharmacy: [facility],178, cm, 08/12/22 6:44:00 EDT, Height/Length [...] nausea, # 25 tab, 0 Refill(s), Pharmacy: [facility], 177.8, cm, 06/01/22 17:05:00 EDT, Height/Length Dosing, 117.93, kg, 06/01/22 17:05:00 EDT, Weight Dosing Start Date: 06/02/22 Status: Ordered prochlorperazine 10 mg oral tablet 10 mg = 1 tab, Oral, QID, # 28 tab, 0 Refill(s), Pharmacy: [facility], 178, cm, 08/11/22 6:40:00 EDT, Height/Length Dosing, 117.9, kg, 08/11/22 6:40:00 EDT, Weight Dosing Start Date: 08/11/22 Status: Ordered risperiDONE 1 mg oral tablet 1 mg = 1 tab, Oral, every night at bedtime, # 30 tab, 2 Refill(s), Pharmacy: [facility], 178, cm, 08/12/22 6:44:00 EDT, [...] Laboratory List Name Date CBC w/ Diff 09/04/22 Comprehensive Metabolic Panel 09/04/22 Lipase Level 09/04/22 Automated Diff 09/04/22 Most recent to oldest [Reference Range]: 1 WBC [5.0-10.0 x10^3/mcL] 5.9 x10^3/mcL (09/04/22 8:04 AM) RBC [4.6-6.0 x10^6/mcL] 4.7 x10^6/mcL (09/04/22 8:04 AM) Neutro Auto [40.0-75.0 %] 74.4 % (09/04/22 8:04 AM) Lymph Auto [20.0-50.0 %] 16.3 % *LOW* (09/04/22 8:04 AM) [place] Auto [2.0-15.0 %] 7.1 % (09/04/22 8:04 AM) Basophil Auto [0.0-1.0 %] 0.3 % (09/04/22 8:04 AM) BUN [7-18 mg/dL] 17 mg/dL (09/04/22 8:04 AM) Glucose Level [74-106 mg/dL] 225 mg/dL *HI* (09/04/22 8:04 AM) Potassium Level [3.5-5.1 mmol/L] 3.6 mmo l/L (09/04/22 8:04 AM) MCV [80.0-103.0 fL] 85.1 fL (09/04/22 8:04 AM) AST [15-37 unit/L] 21 unit/L (09/04/22 8:04 AM) ALT [14-59 unit/L] 34 unit/L (09/04/22 8:04 AM) MCHC [31.0-35.0 g/dL] 33.3 g/dL (09/04/22 8:04 AM) Sodium Level [136-145 mmol/L] 138 mmol/L (09/04/22 8:04 AM) Hct [41.0-51.0 %] 39.9 % *LOW* (09/04/22 8:04 AM) Lipase Level [73-393 unit/L] 56 unit/L *LOW* (09/04/22 8:04 AM) Calcium Level [8.5-10.1 mg/dL] 8.6 mg/dL (09/04/22 8:04 AM) Albumin Level [3.4-5.0 g/dL] 3.2 g/dL *LOW* (09/04/22 8:04 AM) Protein Total [6.4-8.2 g/dL] 6.7 g/dL (09/04/22 8:04 AM) MCH [26.0-32.0 pg] 28.4 pg (09/04/22 8:04 AM) Neutro Absolute 4.4 x10^3/mcL *NA* (09/04/22 8:04 AM) Bilirubin Total [0.2-1.0 mg/dL] 1.2 mg/d L *HI* (09/04/22 8:04 AM) Hgb [14.0-18.0 g/dL] 13.3 g/dL *LOW* (09/04/22 8:04 AM) Alk Phos [46-146 unit/L] 120 unit/L (09/04/22 8:04 AM) Platelets [130-450 x10^3/mcL] 166 x10^3/ mcL (09/04/22 8:04 AM) CO2 [21-32 mmol/L] 30 mmol/L (09/04/22 8:04 AM) eGFR Non-AA [>=60] 89 (09/04/22 8:04 AM) eGFR AA [>=60] 89 (09/04/22 8:04 AM) Chloride Level [98-107 mmol/L] 102 mmol/ L (09/04/22 8:04 AM) RDW-CV [11.5-17.0 %] 13.6 % (09/04/22 8:04 AM) Imm Gran Auto [0.0-0.9 %] 0.5 % (09/04/22 8:04 AM) Creatinine Level [0.70-1.30 mg/dL] 0.98 mg/dL (09/04/22 8:04 AM) Anion Gap [8-16 mmol/L] 8 mmol/L (09/04/22 8:04 AM) Eos, Auto [1.0-6.0 %] 1.4 % (09/04/22 8:04 AM) Vital Signs Most recent to oldest [Reference Range]: 1 Temperature Temporal Artery [36-38 Deg C ] 36.7 Deg C (09/04/22 7:03 AM) Peripheral Pulse Rate [60-100 bpm] 90 bp m (09/04/22 7:03 AM) Respiratory Rate [12-24 br/min] 16 br/mi n (09/04/22 7:03 AM) Blood Pressure [90-140/60-90 mmHg] 142/8 9mmHg *HI* (09/04/22 7:03 AM) Weight Dosing 119.00 kg (09/04/22 7:09 AM) Weight Estimated 119.00 kg (09/04/22 7:03 AM) Height/Length Dosing 178.000 cm (09/04/22 7:09 AM) Height/Length Estimated 178.000 cm (09/04/22 7:03 AM) Social History Social History Type Response Smoking Status Never; Smoking tobac co use: Never tobacco user entered on: 06/16/22 Sex Male Hospital Discharge Instructions Patient Education 09/04/2022 07:51:27 Abdominal Pain, Adult Abdominal Pain, Adult Pain [...] these instructions at home: Medicines ??? Take [id number] and prescription medicines only as told by [...] your condition for any changes. ??? Take mdmn-[id number]-rfwaasm and prescription medicines only as told by [...] provider. Document Revised: 12/21/2020 Document Reviewed: 03/12/2020 [employer] Patient Education ?? 2021 [employer]. Follow Up Care 09/04/2022 07:03:43 With:Follow up with primary care provider Address: [...] Personnel Name: Kenia Devine MD Address: Address: [place], [place] [address]
--- OUTSIDE RECORDS SUMMARY | 2024-07-07 11:42 | XMS_ITS | Continuity of Care Document ---
Author Organization [facility] Address [address] [place] [address] Care Team Providers Care Packager Machine Name Role Phone Kenia Devine Primary Care Physician [phone] Encounter [facility] Date(s): 03/09/23 - 03/09/[address] [id number] Discharge Disposition: Home or Self Care Attending Physician: Brandy Camacho PA-C Admitting Physician: Brandy Camacho PA-C Referring Physician: Brandy Camacho PA-C Allergies, Adverse Reactions, Alerts Substance Reaction [...] nausea/vomiting, # 30 supp, 0 Refill(s), Pharmacy: [facility], 178, cm, 09/04/22 7:09:00 EDT, Height/Length Dosing, 119, kg, 09/04/22 7:09:00 EDT, Weight Dosing Start Date: 09/16/22 Status: Ordered Albuterol (Eqv-ProAir HFA) 90 mcg/inh inhalation aerosol 180 mcg 2 puffs, Inhale, every 4 hr, PRN not specified, # 18 g, 0 Refill(s), Pharmacy: [facility], 178, cm, 12/13/22 13:06:00 EST, Height/Length Dosing, 126, kg, 12/13/22 13:06:00 EST, Weight Dosing Start Date: 12/16/22 Status: Ordered amitriptyline 25 mg oral tablet 1 tab, Oral, every night at bedtime, # 90 tab, 1 Refill(s), Pharmacy: [facility], 178, cm, 12/13/22 13:06:00 EST, Height/Length [...] resolved, # 30 tab, 0 Refill(s), Pharmacy: [facility], 178, cm, 12/13/22 13:06:00 EST, Height/Length Dosing, 126,... Start Date: 01/27/23 Status: Ordered capsaicin 0.025% topical cream 1 barrera, Topical, TID, PRN other (see comment), APPLY TO THE AFFECTED AREA(S) NEEDED Start Date: 07/19/22 Status: Ordered EpiPen 2-Flip 0.3 mg injectable kit 0.3 mg =, IM, Once, # 1 EA, 0 Refill(s), Pharmacy: [facility], 177.8, cm, 06/01/22 17:05:00 EDT, Height/Length Dosing, 117.93, kg, 06/01/22 17:05:00 EDT, Weight Dosing Start Date: 06/04/22 Status: Ordered escitalopram 20 mg oral tablet 20 mg = 1 tab, Oral, every morning, # 30 tab, 0 Refill(s), Pharmacy: [facility], 178, cm,12/13/22 13:06:00 EST, Height/Length Dosing, [...] BID, # 60 cap, 0 Refill(s), Pharmacy: [facility], 178, cm, 12/13/22 13:06:00 EST, Height/Length Dosing, 126, kg, 12/13/22 13:06:00 EST, Weight Dosing Start Date: 02/04/23 Status: Ordered theodora oral capsule See Instructions, take 1 tablet on tongue at onset of nausea. Repeat every 6 hours as needed, # 20 tab, 0 Refill(s), Pharmacy: [facility], 178, cm, 08/13/22 8:42:00 EDT, Height/Length Dosing, 117.9, kg, 08/13/22 8:42:00 EDT, Weight Dosing Start Date: 08/13/22 Status: Ordered haloperidol 1 mg oral tablet See Instructions, 1 tab Oral at onset of cyclical vomiting syndrome, # 30 tab, 0 Refill(s), Pharmacy: [facility], 178, cm, 12/13/22 13:06:00 EST, Height/Length [...] beverages, # 30 cap, 2 Refill(s), Pharmacy: [facility], 178, cm, 10/30/22 13:49:00 EST, Height/Length Dosing, 126,kg, 10/30/22 13:49:00 EST, Weight Dosing Start Date: 11/21/22 Stop Date: 02/19/23 Status: Ordered lisinopril 10 mg oral tablet 10 mg = 1 tab, Oral, Daily, # 90 tab, 0 Refill(s), Pharmacy: [facility], 178, cm, 12/13/22 13:06:00 EST, Height/Length Dosing, 126, kg, 12/13/22 13:06:00 EST, Weight Dosing Start Date: 12/16/22 Status: Ordered melatonin 3 mg oral tablet 9 mg = 3 tab, Oral, every day at bedtime Start Date: 07/19/22 Status: Ordered metoprolol succinate 50 mg oral capsule, extended release 50 mg = 1 cap, Oral, Daily, # 90 cap, 3 Refill(s), Pharmacy: [facility], 178, cm, 08/13/22 8:42:00 EDT, Height/Length Dosing, 117.9, kg, 08/13/22 8:42:00 EDT, Weight Dosing Start Date: 09/03/22 Status: Ordered mirtazapine 30 mg oral tablet 30 mg = 1 tab, Oral, every night at bedtime, # 30 tab, 2 Refill(s), Pharmacy: [facility],178, cm, 10/30/22 13:49:00 EST, Height/Length Dosing, 126, kg, 10/30/22 13:49:00 EST, Weight Dosing Start Date: 11/21/22 Stop Date: 02/19/23 Status: Ordered omeprazole 40 mg oral delayed release capsule 40 mg = 1 cap, Oral, Daily Start Date: 05/01/22 Status: Ordered omeprazole 40 mg oral delayed release capsule See Instructions, TAKE ONE CAPSULE BY MOUTH EVERY DAY, # 90 cap, 3 Refill(s), Pharmacy: [facility], 178, cm, 12/13/22 13:06:00 EST, Height/Length [...] bedtime, # 30 tab, 0 Refill(s), Pharmacy: [facility], 178, cm, 03/03/23 16:50:00 EDT, Height/Length Dosing, 128, kg, 03/03/23 16:50:00 EDT, Weight Dosing Start Date: 03/09/23 Stop Date: 04/08/23 Status: Ordered Symbicort 80 mcg-4.5 mcg/inh inhalation aerosol 2 puffs, Inhale, BID, # 10.2 g, 5 Refill(s), Pharmacy: [facility], 177.8, cm, 09/22/22 6:14:00 EST, Height/Length [...] Member Role: Informed Provider Address: Address: [address] Name: Veronique Rowan [employer] MACHINE OPERATOR Position: Physician Member Role: Nurse Practitioner Address: Address: [address] Name: Irma Monteiro [employer] MACHINE OPERATOR Position: Physician Member Role: Nurse Practitioner Address: Address: [address] [place] [address] Care Team Related Persons Name: SALO BARBOSA Name: JANET BARBOSA
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
--- OUTSIDE RECORDS SUMMARY | 2024-07-07 11:42 | XMS_ITS | Continuity of Care Document ---
Author Organization [facility] Address [address] [place] [address] Care Team Providers Care Tooth Grinder Name Role Phone Kenia Devine Primary Care Physician [phone] Encounter [facility] Date(s): 03/09/24 - 03/09/24 [facility] [address] [place] [address] Encounter Diagnosis Lymphadenopathy(Discharge Diagnosis) - 03/09/24 Discharge Disposition: Home or Self Care Attending [...] NEEDED, # 8.5 g, 7 Refill(s), Pharmacy: [facility], 178, cm, 05/03/23 10:32:00 EDT, Height/Length Dosing, 125.7, kg, 05/03/23 10:32:00 EDT, Weight Dosing Start Date: 07/10/23 Status: Ordered alfuzosin 10 mg oral tablet, extended release 10 mg = 1 tab, Oral, Daily, # 90 tab, 3 Refill(s), Pharmacy: [facility], 178.5, cm, 10/07/23 14:51:00 EST, Height, 116.95, kg, 11/04/23 14:29:00 EST, Weight Dosing Start Date: 11/25/23 Stop Date: 11/19/24 Status: Ordered amitriptyline 100 mg oral tablet 100 mg = 1 tab, Oral, every day at bedtime, # 90 tab, 2 Refill(s), Pharmacy: [facility], 178.5, cm, 10/07/23 14:51:00 EST, Height, 117.9, kg, 10/07/23 14:59:00 EST, Weight Dosing Start Date: 10/07/23 Status: Ordered Ativan 1 mg oral tablet 1 mg = 1 tab, Oral, Daily, PRN nausea/vomiting, Use as needed during cyclical vomiting episodes, 1 mg tab every 4 hrs PRN until resolved, # 30 tab, 0 Refill(s), Pharmacy: [facility], 178, cm, 05/03/23 10:32:00 EDT, Height/Length Dosing, 125.7, kg, 05/03/23 10:32:00 EDT, Weight Dosing Start Date: 07/21/23 Status: Ordered capsaicin 0.025% topical cream 1 barrera, Topical, TID, PRN other (see comment), APPLY TO THE AFFECTED AREA(S) NEEDED Start Date: 07/19/22 Status: Ordered EPINEPHrine 0.3 mg injectable kit See Instructions, INJECT INTRAMUSCULARLY ONCE, # 2 mL, 0 Refill(s), Pharmacy: [facility],178, cm, 12/30/23 15:35:00 EST, Height, 155.62, kg, 12/30/23 15:38:00 EST, Weight Dosing Start Date: 01/13/24 Status: Ordered escitalopram 20 mg oral tablet 20 mg = 1 tab, Oral, every morning, # 30 tab, 3 Refill(s), Pharmacy: [facility], 178, cm,12/30/23 15:35:00 EST, Height, 115.75, kg, 01/27/24 8:32:00 EDT, Weight Dosing Start Date: 01/27/24 Stop Date: 05/26/24 Status: Ordered haloperidol 2 mg oral tablet 2 mg = 1 tab, Oral, every 6 hr, PRN nausea/vomiting, # 60 tab, 11 Refill(s), 08/01/24 7:57:00 AM CDT, Pharmacy: [facility], 177, cm, 08/01/23 8:37:00 EDT, Height/Length Dosing, 129, kg, 08/01/23 8:37:00 EDT, Weight Dosing Start Date: 08/01/23 Stop Date: 08/01/24 Status: Ordered ibuprofen 800 mg oral tablet 800 mg = 1 tab, Oral, every 8 hr, PRN other (see comment), as needed Start Date: 05/01/22 Status: Ordered lisinopril 10 mg oral tablet 1 tab, Oral, Daily, # 90 tab, 3 Refill(s), Pharmacy: [facility], 178, cm, 05/03/23 10:32:00 EDT, Height/Length Dosing, 125.7, kg, 05/03/23 10:32:00 EDT, Weight Dosing Start Date: 06/11/23 Status: Ordered melatonin 3 mg oral tablet 9 mg = 3 tab, Oral, every day at bedtime Start Date: 07/19/22 Status: Ordered metFORMIN 500 mg oral tablet 1 tab, Oral, BID w/Meals, # 90 tab, 1 Refill(s), Pharmacy: [facility], 178, cm, 12/30/23 15:35:00 EST, Height, 116.75, kg, 02/03/24 12:42:00 EDT, Weight Dosing Start Date: 02/09/24 Status: Ordered Metoprolol Succinate ER 50 mg oral tablet, extended release 1 tab, Oral, Daily, # 90 tab, 3 Refill(s), Pharmacy: [facility], 177, cm, 08/01/23 8:37:00 EDT, Height/Length Dosing, 129, kg, 08/01/23 8:37:00 EDT, Weight Dosing Start Date: 08/23/23 Status: Ordered mirtazapine 30 mg oral tablet 30 mg = 1 tab, Oral, every night at bedtime, # 30 tab, 3 Refill(s), Pharmacy: [facility],178, cm, 12/30/23 15:35:00 EST, Height, 115.75, kg, 01/27/24 8:32:00 EDT, Weight Dosing Start Date: 01/27/24 Stop Date: 05/26/24 Status: Ordered omeprazole 40 mg oral delayed release capsule 1 cap, Oral, Daily, # 90 cap, 3 Refill(s), Pharmacy: [facility], 178, cm, 12/30/23 15:35:00 EST, Height, 116.75, kg, 02/03/24 12:42:00 EDT, Weight Dosing Start Date: 02/16/24 Status: Ordered prochlorperazine 10 mg oral tablet 10 mg = 1 tab, Oral, QID, PRN nausea, # 20 tab, 0 Refill(s), Pharmacy: [facility], 177, cm, 08/01/23 8:37:00 EDT, Height/Length Dosing, 129, kg, 08/01/23 8:37:00 EDT, Weight Dosing Start Date: 08/01/23 Status: Ordered risperiDONE 1 mg oral tablet 1.5 mg = 1.5 tab, Oral, every night at bedtime, # 45 tab, 3 Refill(s), Pharmacy: [facility], 178, cm, 12/30/23 15:35:00 EST, Height, 115.75, kg, 01/27/24 8:32:00 EDT, Weight Dosing Start Date: 01/27/24 Stop Date: 05/26/24 Status: Ordered Symbicort 80 mcg-4.5 mcg/inh inhalation aerosol 2 puffs, Inhale, BID, # 10.2 g, 5 Refill(s), Pharmacy: [facility], 177.8, cm, 09/22/22 6:14:00 EST, Height/Length [...] Physician Member Role: Informed Provider Address: Address: [address] [place] [address] [address] Name: Veronique Rowan PHONE OPERATOR Position: No Access Member Role: Nurse Practitioner Address: Address: [address] [facility] [place] [address] Name: Irma Monteiro PHONE OPERATOR Position: Physician Member Role: Nurse Practitioner Address: Address: [address] [place] [address] [address] Care Team Related Persons Name: SALO BARBOSA Name: JANTE BARBOSA
--- OUTSIDE RECORDS SUMMARY | 2024-07-07 11:42 | XMS_ITS | Encounter Summary ---
[facility] [place] [address] Care Team Providers Care Project Designer Name Role Phone Kenia Devine MD Primary Care Provider [phone] Encounter Details Date Type Department Care Team (Latest Contact Info) Description 05/26/2024 Travel Social History Tobacco Use Types Packs/Day Years Used Date Smoking Tobacco: Never Smokeless Tobacco: Never Alcohol Use Standard Drinks/Week Comments Not Currently 0 (1 standard drink = 0.6 oz pur e alcohol) IPV Inpatient Questions Answer Date Recorded Does Anyone [...] on file documented as of this encounter Plan of Treatment Not on file documented as of this encounter Visit Diagnoses Not on filedocumented in this encounter Care Teams Project Designer Relationship Specialty Start Date End Date Kenia Devine MD [address] [place] [address] [place] [address] PCP - General Family Medicine 06/02/22 documented as of this encounter
--- OUTSIDE RECORDS SUMMARY | 2024-07-07 11:42 | XMS_ITS | Continuity of Care Document ---
Author Organization [facility] Address [address] [place] [address] Care Team Providers Care Human Resources File Clerk Name Role Phone Kenia Devine Primary Care Physician Encounter [facility] Date(s): 08/04/23 - 08/04/23 [facility] [address] [place] [address] Discharge Disposition: Home or Self Care Attending [...] NEEDED, # 8.5 g, 7 Refill(s), Pharmacy: [facility], 178, cm, 05/03/23 10:32:00 EDT, Height/Length Dosing, 125.7, kg, 05/03/23 10:32:00 EDT, Weight Dosing Start Date: 07/10/23 Status: Ordered amitriptyline 75 mg oral tablet 75 mg = 1 tab, Oral, Daily, # 90 tab, 3 Refill(s), 07/30/24 3:51:00 PM CDT, Pharmacy: [facility], 177.8, cm, 07/30/23 7:34:00 EDT, Height/Length Dosing, 121.3, kg, 07/30/23 7:34:00 EDT, Weight Dosing Start Date: 07/30/23 Stop Date: 07/30/24 Status: Ordered Ativan 1 mg oral tablet 1 mg = 1 tab, Oral, Daily, PRN nausea/vomiting, Use as needed during cyclical vomiting episodes, 1 mg tab every 4 hrs PRN until resolved, # 30 tab, 0 Refill(s), Pharmacy: [facility], 178, cm, 05/03/23 10:32:00 EDT, Height/Length Dosing, 125.7, kg, 05/03/23 10:32:00 EDT, Weight Dosing Start Date: 07/21/23 Status: Ordered capsaicin 0.025% topical cream 1 barrera, Topical, TID, PRN other (see comment), APPLY TO THE AFFECTED AREA(S) NEEDED Start Date: 07/19/22 Status: Ordered EpiPen 2-Flip 0.3 mg injectable kit 0.3 mg =, IM, Once, # 1 EA, 0 Refill(s), Pharmacy: [facility], 177.8, cm, 06/01/22 17:05:00 EDT, Height/Length Dosing, 117.93, kg, 06/01/22 17:05:00 EDT, Weight Dosing Start Date: 06/04/22 Status: Ordered escitalopram 20 mg oral tablet 20 mg = 1 tab, Oral, every morning, # 30 tab, 2 Refill(s), Pharmacy: [facility], 178, cm,05/03/23 10:32:00 EDT, Height/Length Dosing, 125.7, kg, 05/03/23 10:32:00 EDT, Weight Dosing Start Date: 05/07/23 Stop Date: 08/05/23 Status: Ordered haloperidol 2 mg oral tablet 2 mg = 1 tab, Oral, QID, PRN nausea, # 45 tab, 1 Refill(s), 07/30/24 3:50:00 PM CDT, Pharmacy: [facility], 177.8, cm, 07/30/23 7:34:00 EDT, Height/Length Dosing, 121.3, kg, 07/30/23 7:34:00 EDT, Weight Dosing Start Date: 07/30/23 Stop Date: 07/30/24 Status: Ordered haloperidol 2 mg oral tablet 2 mg = 1 tab, Oral, every 6 hr, PRN nausea/vomiting, # 60 tab, 11 Refill(s), 08/01/24 7:57:00 AM CDT, Pharmacy: [facility], 177, cm, 08/01/23 8:37:00 EDT, Height/Length [...] beverages, # 30 cap, 2 Refill(s), Pharmacy: [facility], 178, cm, 10/30/22 13:49:00 EST, Height/Length Dosing, 126,kg, 10/30/22 13:49:00 EST, Weight Dosing Start Date: 11/21/22 Stop Date: 02/19/23 Status: Ordered lisinopril 10 mg oral tablet 1 tab, Oral, Daily, # 90 tab, 3 Refill(s), Pharmacy: [facility], 178, cm, 05/03/23 10:32:00 EDT, Height/Length Dosing, 125.7, kg, 05/03/23 10:32:00 EDT, Weight Dosing Start Date: 06/11/23 Status: Ordered melatonin 3 mg oral tablet 9 mg = 3 tab, Oral, every day at bedtime Start Date: 07/19/22 Status: Ordered metoprolol succinate 50 mg oral capsule, extended release 50 mg = 1 cap, Oral, Daily, # 90 cap, 3 Refill(s), Pharmacy: [facility], 178, cm, 08/13/22 8:42:00 EDT, Height/Length Dosing, 117.9, kg, 08/13/22 8:42:00 EDT, Weight Dosing Start Date: 09/03/22 Status: Ordered mirtazapine 30 mg oral tablet 30 mg = 1 tab, Oral, every night at bedtime, # 30 tab, 2 Refill(s), Pharmacy: [facility],177.8, cm, 04/20/23 7:11:00 EDT, Height/Length Dosing, 128.37, kg, 04/20/23 7:11:00 EDT, Weight Dosing Start Date: 04/30/23 Stop Date: 07/29/23 Status: Ordered omeprazole 40 mg oral delayed release capsule See Instructions, TAKE ONE CAPSULE BY MOUTH EVERY DAY, # 90 cap, 3 Refill(s), Pharmacy: [facility], 178, cm, 12/13/22 13:06:00 EST, Height/Length Dosing, 126, kg, 12/13/22 13:06:00 EST, Weight Dosing Start Date: 02/25/23 Status: Ordered ondansetron 4 mg oral tablet, disintegrating 4 mg = 1 tab, Oral, every 6 hr, PRN as needed for nausea/vomiting, X 10 days, # 15 tab, 0 Refill(s), 08/11/23 4:07:00 PM CDT, Pharmacy: [facility], 177, cm, 08/01/23 8:37:00 EDT, Height/Length Dosing, 129, kg, 08/01/23 8:37:00 EDT, Weight Dosing Start Date: 08/01/23 Stop Date: 08/11/23 Status: Ordered prochlorperazine 10 mg oral tablet 10 mg = 1 tab, Oral, QID, PRN nausea, # 20 tab, 0 Refill(s), Pharmacy: [facility], 177, cm, 08/01/23 8:37:00 EDT, Height/Length Dosing, 129, kg, 08/01/23 8:37:00 EDT, Weight Dosing Start Date: 08/01/23 Status: Ordered risperiDONE 1 mg oral tablet 1 mg = 1 tab, Oral, every night at bedtime, # 30 tab, 2 Refill(s), Pharmacy: [facility], 178, cm, 05/03/23 10:32:00 EDT, Height/Length Dosing, 125.7, kg, 05/03/23 10:32:00 EDT, Weight Dosing Start Date: 05/07/23 Stop Date: 08/05/23 Status: Ordered Symbicort 80 mcg-4.5 mcg/inh inhalation aerosol 2 puffs, Inhale, BID, # 10.2 g, 5 Refill(s), Pharmacy: [facility], 177.8, cm, 09/22/22 6:14:00 EST, Height/Length [...] Laboratory List Name Date CBC w/ Diff 08/04/23 Comprehensive Metabolic Panel (CMP) 08/04 Hemoglobin A1c 08/04/23 Lipid Panel 08/04/23 PSA Screen 08/04/23 Automated Diff 08/04/23 Most recent to oldest [Reference Range]: 1 WBC [5.0-10.0 x10^3/mcL] 6.0 x10^3/mcL (08/04/23 8:48 AM) RBC [4.6-6.0 x10^6/mcL] 4.8 x10^6/mcL (08/04/23 8:48 AM) Neutro Auto [40.0-75.0 %] 66.7 % (08/04/23 8:48 AM) Lymph Auto [20.0-50.0 %] 23.1 % (08/04/23 8:48 AM) [place] Auto [2.0-15.0 %] 7.9 % (08/04/23 8:48 AM) Basophil Auto [0.0-1.0 %] 0.3 % (08/04/23 8:48 AM) BUN [7-18 mg/dL] 9 mg/dL (08/04/23 8:48 AM) Cholesterol Total [50-200 mg/dL] 123 mg/ dL (08/04/23 8:48 AM) LDL [0-130 mg/dL] 59 mg/dL (08/04/23 8:48 AM) Glucose Level [74-106 mg/dL] 114 mg/dL *HI* (08/04/23 8:48 AM) Potassium Level [3.5-5.1 mmol/L] 3.4 mmo l/L *LOW* (08/04/23 8:48 AM) MCV [80.0-96.0 fL] 83.9 fL (08/04/23 8:48 AM) HDL [40-60 mg/dL] 46 mg/dL (08/04/23 8:48 AM) AST [15-37 unit/L] 20 unit/L (08/04/23 8:48 AM) ALT [16-63 unit/L] 37 unit/L (08/04/23 8:48 AM) MCHC [31.0-35.0 g/dL] 32.8 g/dL (08/04/23 8:48 AM) Sodium Level [136-145 mmol/L] 140 mmol/L (08/04/23 8:48 AM) Hct [41.0-51.0 %] 40.0 % *LOW* (08/04/23 8:48 AM) Triglycerides [0-150 mg/dL] 88 mg/dL (08/04/23 8:48 AM) Calcium Level [8.5-10.1 mg/dL] 8.4 mg/dL *LOW* (08/04/23 8:48 AM) Albumin Level [3.4-5.0 g/dL] 3.5 g/dL (08/04/23 8:48 AM) Protein Total [6.4-8.2 g/dL] 6.9 g/dL (08/04/23 8:48 AM) MCH [26.0-32.0 pg] 27.5 pg (08/04/23 8:48 AM) Neutro Absolute 4.0 x10^3/mcL *NA* (08/04/23 8:48 AM) Bilirubin Total [0.2-1.0 mg/dL] 1.0 mg/d L (08/04/23 8:48 AM) Hgb [14.0-18.0 g/dL] 13.1 g/dL *LOW* (08/04/23 8:48 AM) Alk Phos [46-146 unit/L] 142 unit/L (08/04/23 8:48 AM) Platelets [130-450 x10^3/mcL] 192 x10^3/ mcL (08/04/23 8:48 AM) CO2 [21-32 mmol/L] 32 mmol/L (08/04/23 8:48 AM) eGFR Non-AA [>=60] 89 (08/04/23 8:48 AM) eGFR AA [>=60] 89 (08/04/23 8:48 AM) Hemoglobin A1c [4.0-6.0 %] 6.3 % *HI* (08/04/23 8:48 AM) Chloride Level [98-107 mmol/L] 102 mmol/ L (08/04/23 8:48 AM) RDW-CV [11.5-14.5 %] 13.2 % (08/04/23 8:48 AM) Imm Gran Auto [0.0-0.9 %] 0.5 % (08/04/23 8:48 AM) Creatinine Level [0.70-1.30 mg/dL] 0.98 mg/dL (08/04/23 8:48 AM) PSA Total Screening [0.00-4.00 ng/mL] 3. 06 ng/mL 2 (08/04/23 8:48 AM) Eos, Auto [1.0-6.0 %] 1.5 % (08/04/23 8:48 AM) 2Interpretive Data: The testing method is an heterogeneous enzyme Immunoassay manufactured by [employer] and performed on the Onepager system. Values obtained with different assay methods or kits may be different and cannot be used interchangeably. Test results cannot be interpreted as absolute evidence for the presence or absence of malignant disease. Social History Social History Type Response Smoking Status Smoking tobacco use: Never tobacco user;Never entered on: 04/20/23 Sex Male Patient Care team information Care Team Personnel Name: Kenia Devine MD Position: Physician Member Role: Informed Provider Address: Address: [place] [facility] [address] Name: Veronique Rowan ROLL OUT MANAGER Position: Physician Member Role: Nurse Practitioner Address: Address: [address] Name: Irma Monteiro ROLL OUT MANAGER Position: Physician Member Role: Nurse Practitioner Address: Address: [address] [place], [place] [address]marylou Souza [address] Care Team Related Persons Name: SALO BARBOSA Address: Home Name: JANET BARBOSA Address: Home
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
--- OUTSIDE RECORDS SUMMARY | 2024-07-07 11:42 | XMS_ITS | Encounter Summary ---
Author Organization [facility] Address [facility] [place] [address] Care Team Providers Care Teenage Program Director Name Role Phone Kenia Devine MD Primary Care Provider [phone] Encounter Details Date Type Department Care Team (Latest Contact Info) Description 05/24/2024 Multidisciplinary Ca re Committee [place] [address] Chace Enriquez MD [facility] [place] [address] Social History Tobacco Use Types Packs/Day Years Used Date Smoking Tobacco: Never Smokeless Tobacco: Never Alcohol Use Standard Drinks/Week Comments Not Currently 0 (1 standard drink = 0.6 oz pur e alcohol) [facility] Inpatient Questions Answer Date Recorded Does Anyone [...] on file documented as of this encounter Progress Notes * Chace Enriquez MD - 05/24/2024 3:31 PM EDT Thoracic - Tumor Board Note Date Presented: 05/24/2024 Presenting Physician: Mina Diagnosis/Tumor Site: Thymoma Is this Metastatic Disease: No Synopsis of History/HPI: 58y/o male s/p radical thymectomy Imaging: multiple CT scans Pathology/Histology: 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
--- OUTSIDE RECORDS SUMMARY | 2024-07-07 11:42 | XMS_ITS | Encounter Summary ---
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 Do not share with others. If you are given a prescription for narcotics please keep these in a safe place and dispose of properly when you no longerneed these pills. 05/06/2024 01/27/2022 Opioid PDMP [place] PDMP Query Date 05/07/2024 01/27/2022 [place] PDMP Query Date 05/07/2024 01/27/2022 [place] PDMP Query Date 05/07/2024 01/27/2022 Joe Garcia is being prescribed a prescription opioid for the treatment of acute post-operativepain related to surgery. Joe Garcia has been advised to take the smallest dose possible to control their pain and as their pain improves to take smaller doses and increase the time between doses. In addition to this medication, non-opioid medications have been prescribed for adjunct treatment of their pain. Non-pharmacological treatment such as ice, elevation and activity modification have been recommended as appropriate. The Acute Opioid Therapy Informed Consent form has been completed and sent to medical records for scanning to chart. Please take your medication exactly as prescribed. Read all instructions that come with your medication. Using narcotic pain medication (such as oxycodone, hydromorphone (Dilaudid), morphine, fentanyl, ortramadol) may cause addiction. While addiction is more common in people with a personal or family history of addiction, it can occur in anyone. Taking more than the prescribed amount of medication or using with alcohol or other drugs can causeyou to stop breathing resulting in coma, brain damage, or . Opioids (oxycodone, hydromorphone/Dilaudid, morphine, fentanyl, tramadol) can slow reaction time, cause drowsiness, or cloud judgement. It is unsafe for you to drive or operate heavy machinery while taking this medication. Opioids (oxycodone, hydromorphone/Dilaudid, morphine, fentanyl, tramadol) are at risk of being diverted by anyone with access to your home. Opioids should be stored in a safe and secure place, such as a locked cabinet or safe. Unused opioids (oxycodone, hydromorphone/Dilaudid, morphine, fentanyl, tramadol) should be disposedof according to the label or patient information. If there are no specific instructions, medications may be returned to a take-back location or mixed with a small amount of water and an undesirable waste substance such as coffee grounds or cat litter. Sleep: Try to establish normal sleep patterns. Long naps during the day may make it hard for you tosleep at night. Use the pain medication at bedtime for the first week at home if needed. Bowel Movements: After surgery, your bowel movements may not be regular for you, but you should be able to get back to your daily routine quickly. Please make sure to take the stool softeners or mildlaxatives as prescribed to get back to your normal routine. If you do not have a bowel movement formore than 2 days or begin to experience moderate to severe abdominal pain, please call the office. Follow up appointments: You will return to clinic to see Dr. Grijalva in 2 weeks and will have a CXR within an hour prior to the appointment. A letter will be mailed to you confirming your appointment information, and you will receive a reminder phone call from the thoracic surgery office. No future appointments. * Attachments The following attachments cannot be sent through Care Everywhere. * Oxycodone Oral Tablet 5 mg (OXYCODONE - ORAL) (Zimbabwean) documented in this encounter Medications at Time of Discharge [...] TABLET FOR 09/26/2021 SUMAtriptan (IMITREX) 20 mg/actuation [place], Non-Aerosol as needed. 01/23/2022 escitalopram (Lexapro) 10 [...] mouth nightly. documented as of this encounter Progress Notes * Tameka Fang RN - 05/07/2024 9:06 AM EDT Patient discharged home. Patient stable, no complains at this time. All discharged instructions reviewed with patient. All questions answered. IV removed, dry dressing applied. All belongings with patient .Awaiting for family to sheepskin pickler. * Shanice Bhatt MD - 05/06/2024 9:55 PM EDT [facility] Department of Thoracic Surgery Inpatient Post Op Check Patient Name: Joe Garcia Patient : [id number] Patient Patient Location: [address] Attending Surgeon: CHACE GRIJALVA ID: Joe Garcia is a 58 y.o. male with anterior mediastinal mass who is Day of Surgery s/p Robotic L VATS Radical Thymectomy Subjective: Has nausea but has no vomiting, has mild pain on the incision site, denies SOB, pain well controlled, offers no complaints Vitals: Temp: [36.2 ??C (97.2 ??F)-36.4 ??C (97.5 ??F)] Heart Rate: [84-103] Resp: [16-20] BP: (131-159)/(82-106) SpO2: [85 %-97 %] Heart Rate from SpO2: [94 bpm-103 bpm] Wt & BMI By Encounter Date Flowsheet Row Admission (Current) from 05[facility] from 04/21/[facility]24 in Thoracic Surgery at [facility] Weight 120.7 kg (266 lb) 1 05/06/2024 1212 119.6 kg (263 lb 10.7 oz) 1 04/21/2024 0935 BMI 38.16 1 05/06/2024 1212 37.83 1 04/21/2024 0935 Physical Exam: Gen: NAD, pleasant, sitting bed HEENT: normocephalic, atraumatic, EOMI, sclerae anicteric Neck: supple, trachea midline Card: RRR, no M/R/G appreciated Pulm: CTAB, no wheeze/ronchi/rales appreciated, non-labored breathing on 4 L NC, L CT to -20 suction with intermittent 1 column provoked airleak appreciated, robotic port sites covered with dry dermabond, incisions c/d/i Abd: soft, full abdomen, NT Ext: warm, dry, no edema Neuro: A&Ox3, CN II-XII grossly intact, nonfocal, conversant L CT (-20): 70 ml thin SS output with no clot I/O: I/O last 3 completed shifts: In: 600 [I.V.:600] Out: 593 [Urine:500; Other:73; Blood:20] Labs: Recent Results (from the past 72 hour(s)) XR Chest One View Result Value Ref Range WORKSTATION ID [id number] Diagnostics: 1. Possible trace left apical pneumothorax. 2. Low lung volumes with bronchovascular crowding. Micro: None Assessment: Joe Garcia is a 58 y.o. male with anterior mediastinal mass who is Day of Surgery s/p Robotic L VATS Radical Thymectomy. He is currently in stable condition and recovering well postoperatively. He had nausea which resolved with prn anti emetic. He is hemodynamically stable. CXT showed trace pneumothorax with no clinical sign of respiratory compromise. Plan: Neuro: tylenol, toradol available for pain, Amitriptyline, Mirtazapine, Card: HDS, monitor vitals, Amlodipine 10 mg po daily, Pulm: IS/cough/deep breathe/OOB/ambulate, albuteroL, 2.5 mg, Q6H. Continue L CT to -20, monitor output. AM CXR FENGI: NS 100 ml/hr, No diet orders on file. RBOs Renal/: monitor UOP, Tamsulosin, Heme: ZOË ID: ZOË Endo: ZOË PPx: scds, Ambulate 4x a day. OOB. Dispo: full code, floor status Shanice Bhatt MD 05/06/2024 Thoracic Surgery Service Pager [phone] * Tarsha Faustin RN - 05/06/2024 5:43 PM EDT Pt arrived to PACU from OR, placed on monitor and received report. 1849: CXR at this time. documented in this encounter H&P Notes * Chace Rizvi, ELEN - 05/06/2024 1:25 PM EDT Thoracic Surgery Preop NAME: Joe Garcia DATE: 05/06/24 SURGEON: CHACE GRIJALVA PROCEDURE: Bronchoscopy and robot assisted Left VATS resection of anterior mediastinal mass BRIEF HISTORY: Joe Garcia is a 58 y.o. male with an anterior mediastinal mass. The patient reports no interval change. There has been no interval medical illness or hospitalizations. Questions have been addressed. Smoking HX: Social History Tobacco Use Smoking Status Never Smokeless Tobacco Never PMH: Patient Active Problem List Diagnosis Date Noted [...] cysts 02/12/2021 Pyloric stenosis 09/20/2019 Dysuria 06/23/2018 PSH: Past Surgical History: Procedure Laterality Date PRO COLONOSCOPY, REMV LESN, SNARE N/A 08/31/2020 COLONOSCOPY, POLYPECTOMY, REMOVAL LESION BY SNARE (WRVU 4.67) performed by Perez Rubalcava MD at [facility] ENDOSCOPY PRO ENDOSCOPIC US EXAM, ESOPH N/A 01/09/2021 UPPER EUS- ENDOSCOPIC ULTRASOUND performed by Zhen Carnes MD at [facility] ENDOSCOPY PRO ENDOSCOPIC WRIST SURG RELEASE TRANSVERSE CARPAL LIGAMENT Right 01/31/2022 ENDOSCOPY WRIST W/ RELEASE TRANSVERSE CARPAL LIGAMENT (WRVU 6.39) performed by Long Kinney MDat [facility] OSC PRO UPPER GI ENDOSCOPY, BIOPSY N/A 08/31/2020 EGD WITH BIOPSY (WRVU 2.49) performed by Perez Rubalcava MD at [facility] ENDOSCOPY MEDS: No current facility-administered medications on file prior to encounter. Current Outpatient Medications on File Prior to Encounter Medication Sig Dispense Refill amLODIPine (Norvasc) 10 mg Tablet TAKE ONE TABLET BY MOUTH EVERY DAY escitalopram (Lexapro) 10 mg Tablet Take 10 mg by mouth daily. amitriptyline (Elavil) 10 mg Tablet Take 10 mg by mouth nightly. budesonide-formoteroL (SYMBICORT) 80-4.5 mcg/actuation HFA Aerosol Inhaler Inhale into the lungs asneeded. buPROPion (WELLBUTRIN XL) 150 mg Tablet Extended Release 24 hr 0 melatonin 5 mg Tablet Take 10 mg by mouth nightly. albuteroL 90 mcg/actuation inhaler (HFA) Inhale 2 puffs into the lungs every 4 hours as needed for Wheezing. Use with Spacer traMADoL (Ultram) 50 mg Tablet Take 1 tablet by mouth every 6 hours as needed for Pain. 10 tablet 0 ciprofloxacin-dexamethasone (Ciprodex) 0.3-0.1 % Drops, Suspension INSTILL 4 DROPS INTO AFFECTED EAR(S) TWO TIMES A DAY FOR 7 DAYS predniSONE (Deltasone) 10 mg Tablet TAKE 5 TABLETS BY MOUTH FOR 3 DAYS, THEN TAKE 4 TABLETS FOR 3 DAYS, THEN 3 TABLETS FOR 3 DAYS, THEN 2 TABLETS FOR 3 DAYS, THEN 1 TABLET FOR SUMAtriptan (IMITREX) 20 mg/actuation [place], Non-Aerosol as needed. baclofen (Lioresal) 10 mg Tablet TAKE ONE TABLET BY MOUTH THREE TIMES A DAY NEEDED FOR 4 DAYS cyclobenzaprine (Flexeril) 10 mg Tablet as needed. nabumetone (Relafen) 500 mg Tablet TAKE ONE TABLET BY MOUTH TWICE A DAY NEEDED ondansetron ODT (Zofran-ODT) 4 mg Tablet, Rapid Dissolve DISSOLVE ONE TABLET ON TONGUE EVERY 6 HOURS NEEDED tamsulosin (Flomax) 0.4 mg Capsule TAKE ONE CAPSULE BY MOUTH EVERY DAY prochlorperazine (Compazine) [address] 25 mg rectally every 12 hours as needed for Nausea. prochlorperazine (Compazine) 10 mg Tablet Take 10 mg by mouth as needed for Nausea. ondansetron (Zofran) 4 mg Tablet Take 4 mg by mouth as needed for Nausea. omeprazole (PriLOSEC) 20 mg Capsule, Delayed Release(E.C.) Take 40 mg by mouth daily. mirtazapine (REMERON) 15 mg Tablet 30 mg. 0 risperiDONE (RISPERDAL) 1 mg Tablet 0 PROAIR HFA 90 mcg/actuation HFA Aerosol Inhaler INHALE 2 PUFFS EVERY 4 HOURS 0 EPINEPHrine (ADRENALIN) 0.1 mg/mL (1:10,000) Syringe Inject as directed as needed. ALL: Allergies Allergen Reactions Dust & Pollen Filter Mask [Facial Mask] Other (See Comments) rhinositis Fish Containing Products Nausea And Vomiting Peanut Anaphylaxis Shellfish Containing Products Nausea And Vomiting Tree Nut Anaphylaxis Egg Nausea And Vomiting Hydrochlorothiazide laryngeal spasm Metoclopramide Hives Mold Vicodin [Hydrocodone-Acetaminophen] Other (See Comments) Throat gets itchy Physical Exam Patient Vitals for the past 24 hrs: Temp Pulse Resp BP SpO2 O2 Device 05/06/24 1212 36.4 ??C (97.5 ??F) 84 16 133/82 97 % RA Gen: NAD, pleasant, sitting up on stretcher HEENT: normocephalic, atraumatic, EOMI, sclerae anicteric Neck: supple, trachea midline Card: RRR, no M/R/G appreciated Pulm: CTAB, no wheeze/ronchi/rales appreciated, non-labored breathing on RA Abd: soft, NT, BS+ Ext: warm, dry, trace bilat LE edema Neuro: A&Ox3, nonfocal, conversant LABS: Lab Results Component Value Date WBC 7.3 04/21/2024 RBC 4.61 04/21/2024 HGB 12.7 (L) 04/21/2024 HCT 38.4 (L) 04/21/2024 MCV 83.3 04/21/2024 MCH 27.5 04/21/2024 MCHC 33.1 04/21/2024 PLATELET 192 04/21/2024 RDWCV 13.6 04/21/2024 Lab Results Component Value Date/Time NA 142 04/21/2024 11:26 AM K 4.7 04/21/2024 11:26 AM CL 105 04/21/2024 11:26 AM CO2 24 04/21/2024 11:26 AM BUN 17 04/21/2024 11:26 AM CREATININE 1.02 04/21/2024 11:26 AM FILM ON PACS: Yes - CT, PFTs, Labs CONSENT: Yes/EMR - Yes Assessment/Plan: Joe Garcia is a 58 y.o. male presenting today for planned bronchoscopy and robot assisted Left VATS resection of anterior mediastinal mass. Consent signed and confirmed in chart. Questions addressed. Will proceed with planned surgery. ELEN Serrato 05/06/2024 Thoracic Surgery Service Pager [phone] Associated attestation - Chace Grijalva MD - 05/06/2024 1:37 PM EDT I have seen the patient and reviewed the PA's above note and I agree with the details as written. Javon personally reviewed the relevant imaging. The assessment and plan were formulated in discussion with me and I agree with them as documented. Chace Grijalva MD 05/06/2024 documented in this encounter Miscellaneous Notes * Plan of Care - Tameka Fang RN - 05/07/2024 8:57 AM EDT Problem: Adult Inpatient Plan of Care Goal: Plan of Care Review Outcome: Outcome (s) achieved Goal: Patient-Specific Goal (Individualized) Outcome: Outcome (s) achieved Goal: Absence of Hospital-Acquired Illness or Injury Outcome: Outcome (s) achieved Goal: Optimal Comfort and Wellbeing Outcome: Outcome (s) achieved Goal: Readiness for Transition of Care Outcome: Outcome (s) achieved * Plan of Care - Daniela Camarillo RN - 05/07/2024 6:45 AM EDT Problem: Adult Inpatient Plan of Care Goal: Plan of Care Review Outcome: Ongoing (Interventions Implemented as Appropriate) Goal: Patient-Specific Goal (Individualized) Outcome: Ongoing (Interventions Implemented as Appropriate) Goal: Absence of Hospital-Acquired Illness or Injury Outcome: Ongoing (Interventions Implemented as Appropriate) Goal: Optimal Comfort and Wellbeing Outcome: Ongoing (Interventions Implemented as Appropriate) Goal: Readiness for Transition of Care Outcome: Ongoing (Interventions Implemented as Appropriate) * Op Note - Chace Grijalva MD - 05/06/2024 2:15 PM EDT [facility] Operative Note Patient Name: Joe Garcia : [id number] MR#: [id number] Case Date: 05/06/2024 Surgeon: Surgeons and Role: * Chace Grijalva MD - Primary * Renetta Chaparro PA - Physician Mixer Driver * Tamir Guerrero MD Preoperative diagnosis: mediastinal mass Postoperative diagnosis: mediastinal mass Procedure(s) (LRB): @ROBOTIC THYMECTOMY W/ RAD. MEDIASTINAL DISSECTION (WRVU 23.48) (Left) BRONCHOSCOPY, DIAGNOSTIC (WRVU 2.53) (N/A) MODIFIER MILI IZAGUIRRE (N/A) Modifiers: 22: Increased procedural services Findings: Normal bronchoscopy. On left robotic VATS there was a significant amount of mediastinal fat present that significantly increased the time required for the procedure. Successful robotic radical thymectomy with grossly negative margins in the operating room. Anesthesia: General Estimated Blood Loss: 20 mL Specimens removed during surgery: Order Name Source Comment Collection Info Order Time SPECIMEN TO PATHOLOGY Left superior lateral margin, cauterized area is lateral OR 11 [id number] mediastinal mass Left superior lateral margin, cauterized area is lateral excision 05/06/2024 4:04 PM Time specimen removed from patient: 4:04 PM Number of tissue samples (in container) 1 SPECIMEN TO PATHOLOGY Anterior mediastinal inferior fat OR 11 [id number] mediastinal mass Anterior mediastinal inferior fat excision 05/06/2024 4:18 PM Time specimen removed from patient: 4:17 PM Number of tissue samples (in container) 1 SPECIMEN TO PATHOLOGY radical thymectomy, short stitch superior; long stitch left lateral OR 11 [id number] mediastinal mass radical thymectomy, short stitch superior; long stitch left lateral excision 05/06/2024 4:45 PM Time specimen removed from patient: 4:44 PM Number of tissue samples (in container) 1 Drains: 28F chest tube Surgical Closure: Primary Closure - skin incision is closed but with open spaces for wires, whitney, drains or other devices Disposition: awakened from anesthesia, extubated and taken to the recovery room in a stable condition, having suffered no apparent untoward event. Condition: stable (Please see the Surgical Encounter Summary for any Implant and Specimen details pertinent to this patient.) HPI/Surgical Indications: Mr. Garcia is a 58 y.o. male with an anterior mediastinal mass. We have discussed the differential diagnosis including thymic hyperplasia, thymoma, lymphoma, metastatic process or other benign process. We have discussed options including observation/surveillance or surgicalresection. We have discussed with him the risks of a bronchoscopy and robot assisted Left VATS resection of anterior mediastinal mass. He understands the risks of bleeding, damage to surrounding structures, including the laryngeal nerve resulting in hoarseness, the phrenic nerve resulting in diaphragmatic paralysis, possible shortness of breath, the need for oxygen, a benign nodule, cancer recurrence (if cancer), a prolonged air leak, heart attack, arrhythmia, stroke and . He asked appropriate questions and would like to proceed. Procedure Description: The patient was identified in the preoperative holding area. He was brought to the operating room. A second verification process including patient's name, medical record number, date of and planned procedure was performed. He was placed supine on the operating room table. Sequential compression devices and subcutaneous heparin were administered. He received appropriate prophylactic IV antibiotics prior to the incision. General anesthesia was induced by the anesthesiology staff with a double-lumen endotracheal tube. This required bronchoscopic assistance for placement. A timeout was performed. The flexible diagnostic bronchoscope was inserted on the tracheal lumen. This was advanced into the distal trachea and into the right mainstem bronchus. It was sequentially advanced into the right upper, middle, and lower lobes. The scope was then advanced down the bronchial lumen. It was advanced into the left mainstem bronchus and then sequentially into the left upper and lower lobes. There is no obvious endobronchial abnormality noted to at least level the subsegmental bronchi bilaterally. Performance of this bronchoscopy allowed us to proceed with the surgicalprocedure. The scope was removed. He was rotated slightly with a bump under his left side. His leftarm was allowed to drape down. His right arm was abducted at 90 degrees. He was appropriately padded in all areas. He was prepped and draped in the usual sterile fashion. An 8 mm incision was made in the fifth intercostal space in the anterior axillary line. Blunt dissection was used under the left pleural space following isolation of the left lung. An 8 mm robotic port was inserted and the thoracoscope was inserted. This demonstrated good isolation of the left lung. The left pleural space was insufflated carbon oxide gas. Additional robotic ports were placed in standard fashion. A 12 mm news production assistant port was placed under direct vision. The da José robot was brought onto the field and docked to the patient. The robotic instruments were inserted under direct vision. Inspection of the pleural space demonstrated absence of any obvious metastatic disease. There was a significant amount of mediastinal fat that was present. It was difficult to identify the left phrenic nerve. Eventually this was able to be identified. His care was taken to avoid injury to the structure throughout the dissection. The mediastinal pleura anterior to the phrenic nerve was incised i nferiorly and the pericardium was identified. Circumferential dissection of the anterior mediastinal contents from the left phrenic nerve to the right phrenic nerve was then performed. The right pleura was entered during the dissection. Care was taken to avoid injury to the phrenic nerves bilaterally. The anterior mediastinal contents were able to be swept away from the pericardium and there was no evidence of any invasion of the pericardium. Dissection then proceeded superiorly to the level ofthe innominate vein. There was a single large thymic vein that was present on the patient's right side. This was clipped with 2 hemoclips on the staying side and then divided with the vessel sealer. A dditional dissection of the anterior mediastinal tissue then occurred with a combination of blunt dissection, electrocautery, and the vessel sealer. Ultimately the contents of the anterior mediastinum were cleared from the pericardium posteriorly, the innominate vein superiorly, and the bilateral ph renic nerves. As such, a radical thymectomy was performed. Due to the size of the specimen, the 12 mm news production assistant port was upsized to a 15 mm port to accommodate a 15 mm specimen retrieval bag. The specimen was placed in a specimen retrieval bag and removed from the patient. This was examined on the b ack table and oriented with a short stitch superiorly and a long stitch on the left lateral aspect.There is a clearly palpable mass that was present in the specimen. Grossly this did not appear to invade in to any surrounding structures and the margins appeared grossly negative. Attention was returned to the chest. An additional amount of mediastinal fat along the superior aspect of the left phrenic nerve was also taken as a superior left lateral margin and sent as a separate specimen. In addition, there was a large amount of mediastinal fat inferiorly. This was circumferentially dissected down to the pericardial reflection with the diaphragm. This was also placed in a specimen retrieval bag and removed from the patient. This was sent as a separate specimen. Hemostasis was checked for meticulously achieved. There was no evidence of any ongoing bleeding. The robotic instruments were removed. The da José robot was undocked from the patient and removed from the field. The ports were removed under direct vision and there was no bleeding from the port sites. A 28 Chinese chest tube was placed through the initial incision and directed anteriorly and apically. It was secured to the skin with an 0 silk suture. The left lung was reinflated under direct vision there is excellent reexpansion of all visible portions of the lung. The thoracoscope was removed. The incisions were closed in layers with 2-0 Vicryl in the deep dermal tissue and 4 Monocryl in theskin. Sterile dressings of Dermabond were applied to the incisions. A sterile dressing was applied to the chest tube site. The patient tolerated the procedure well. There were no obvious untoward events. All sponge instrument counts were correct at the end of the case. He was awoken from general anesthesia and extubated in the operating room. He was taken to the recovery room. It should be noted that the significant amount of mediastinal fat severely limited the visibility at times during the dissection and was also significantly challenging in order to fully mobilize thisamount of tissue. This added approximately 75 minutes to the surgery and this increase in difficulty and complexity justifies a 22 modifier. Surgical Infection Prevention Bundle Used? N/A hCace Grijalva MD 05/06/2024 documented in this encounter Plan of Treatment Not on file documented as of this encounter Procedures Procedure Name Priority Date/Time Associated Diagnosis Comments XR CHEST ONE VIEW STAT 05/06/2024 7:0 1 PM EDT SPECIMEN TO PATHOLOGY Routine 05/06/2024 4:45 PM EDT IMMUNOPHENOTYPING FLOW CYTOMETRY (BLOOD) Routine 05/06/2024 4:44 PM EDT FLOW CYTOMETRY REPORT Routine 05/06/2024 4:44 PM EDT SPECIMEN TO PATHOLOGY Routine 05/06/2024 4:18 PM EDT SURGICAL PATHOLOGY REPORT Routine 2023 4:05 PM EDT SPECIMEN TO PATHOLOGY Routine 05/06/2024 4:05 PM EDT MODIFIER ROBOT,MILI XI 2023 1:40 PM EDT Mediastinal mass Bronchoscopy, Diagnostic ([id number]) 05/06/2024 1:40 PM EDT Mediastinal mass Thymectomy, Radical Mediast Disssec ([id number]) 05/06/2024 1:40 PM EDT Mediastinal mass ROBOTIC THYMECTOMY W/ RAD. MEDIASTINAL DISSECTION Routine 05/06/2024 12:04 PM EDT Mediastinal mass BRONCHOSCOPY,DIAGNOSTIC Routine 05/06/20 12:04 PM EDT Mediastinal mass documented in this encounter Results * XR Chest PA & Lateral (Generic) (05/26/2024 11:11 AM EDT) WORKSTATION ID [id number] DH RAD Anatomical Region Laterality Modality Chest N/A Digital Radiogra phy Impressions 05/26/2024 4:06 PM EDT No acute findings . Resolution of postoperative findings Thank you for letting us participate in the care of this patient. ??If you are a health care provider and have any questions regarding this report, please contact the number below. ??For patients who have questions please contact the health patient care technician instructor that requested your imaging first. ? Electronically signed by: Kailee Underwood MD, [facility] ([phone]), at 05/26/2024 4:06 PM Narrative 05/26/2024 4:06 PM EDT EXAMINATION: XR [...] patients who have questions please contactthe health patient care technician instructor that requested your imaging first. Electronically signed by: Kailee Underwood MD, [facility]([phone]), at 05/26/2024 4:06 PM Chace Grijalva MD IMG DX ORDERABLES * XR Chest One View (05/06/2024 7:01 PM EDT) WORKSTATION ID [id number] RAD Anatomical Region Laterality Modality Chest N/A Digital Radiogra phy Impressions 05/06/2024 7:27 PM EDT 1. ??Possible trace left apical pneumothorax. 2. ??Low lung volumes with bronchovascular crowding. Thank you for letting us participate in the care of this patient. ??If you are a health care provider and have any questions regarding this report, please contact the number below. ??For patients who have questions please contact the health patient care technician instructor that requested your imaging first. ? Electronically signed by: Chace Johnson MD, [facility] ([phone]), at 05/06/2024 7:27 PM Narrative 05/06/2024 7:27 PM EDT EXAMINATION: XR CHEST ONE VIEW CLINICAL HISTORY: s/p thymectomy via left chest. Right chest entered. Eval for PTX TECHNIQUE: 1 view of the chest , single image COMPARISON: CT chest 03/09/2024 FINDINGS: EKG leads are present. Left-sided chest tube crosses the mediastinum with tip projecting over the right hilum. Surgical clips project over the gallbladder fossa. There are low bilateral lung volumes with bronchovascular crowding. Streaky opacities at the lung bases likely subsegmental atelectasis. No right-sided pneumothorax. Findings suspicious for trace left apical pneumothorax. No definitive pleural effusions. Magnified size of the cardiomediastinal silhouette from portable technique. Limited assessment of osseous structures demonstrates no acute abnormality. Subcutaneous gas within the right neck. Procedure Note Chace Johnson MD - 05/06/2024 EXAMINATION: XR CHEST ONE VIEW CLINICAL HISTORY: s/p thymectomy via left chest. Right chest entered. Evalfor PTX TECHNIQUE: 1 view of the chest , single image COMPARISON: CT chest 03/09/2024 FINDINGS: EKG leads are present. Left-sided chest tube crosses the mediastinum with tip projecting over theright hilum. Surgical clips project over the gallbladder fossa. There are low bilateral lung volumes with bronchovascular crowding.Streaky opacities at the lung bases likely subsegmental atelectasis. Noright-sided pneumothorax. Findings suspicious for trace left apical pneumothorax. No definitive pleural effusions. Magnified size of the cardiomediastinalsilhouette from portable technique. Limited assessment of osseous structuresdemonstrates no acute abnormality. Subcutaneous gas within the right neck. IMPRESSION 1. Possible trace left apical pneumothorax. 2. Low lung volumes with bronchovascular crowding. Thank you for letting us participate in the care of this patient. If youare a health care provider and have any questions regarding this report,please contact the number below. For patients who have questions please contactthe health patient care technician instructor that requested your imaging first. Chace Grijalva MD IMG DX ORDERABLES * Specimen to Pathology (05/06/2024 4:45 PM EDT) AP Specimen 05/06/2024 4:45 PM EDT 05/06/2024 4:45 PM EDT Narrative [facility] - 05/06/2024 4:45 PM EDT Specimen requisition ordered. ??Separate Pathology report to follow Chace Grijalva MD PATHOLOGY/CYTOLOGY ORDERABLES [facility] [place] [address] * Flow Cytometry Report (05/06/2024 4:44 PM EDT) Flow Cytometry Report [id number] ? [facility]; PA23; A The signing pathologist has (i) examined the relevant preparation(s) for the specimen(s) and (ii) rendered or confirmed the diagnosis(es). . ?Flow Cytometry DIAGNOSIS Flow cytometric diagnosis: T cells with variable antigen expression. NOTE : Thus may represent normal antigen expression profile of thymic lymphocytes. ??Please see morphology report for final delineation. Electronically signed by: ?Iona CONNER, Chris Verified: ??05/09/2024 18:59 ??Hematopathologist Performed at: ??-[facility] Dept. of Pathology, [place] [address] Jack Setter: Inna Khan MD, FCAP, ??CLIA Certificate: [id number] DISCUSSION Blasts based on CD45 expression and orthogonal light scatter, are not increased. The T-lymphocytes, CD56+ NK cells and B- lymphocytes comprise approx 42%, 57%, 0% of the gated population, respectively. CD19 positive B-lymphocytes are too few/absent, which precludes further delineation by Ig light chains. The T-cells are an admixture of CD4+ and CD8+ T lymphocytes (ratio of 0.4). T lymphocytes distribute as CD4+, CD4+/Cd8+ dual T, Cd8+ T,minor CD4-CD8- T cells and a subset express Cd10 There is no increase in ND15-qqdbqimf/ CD3-neg NK cells. Flow analysis is an ancillary study. A definite diagnosis requires correlation with the morphologic features of this process and if necessary, correlation with other ancillary studies like immunohistochemistr y, enzyme cytochemistry and/or cyto/ molecular genetics. This test was developed and its performance characteristics determined by the Clinical Flow Cytometry Laboratory at [facility]. It has not been cleared or approved by the U.S. Food and Drug Administration. ??The FDA has determined that such clearance or approval is not necessary. ??This test is used for clinical purposes. ??It should not be regarded as investigational or for research. This laboratory is certified under the Clinical Laboratory Improvement Act of 1988 (CLIA) as qualified to perform high complexity clinical laboratory testing. SPECIMEN PROCESSING [id number] Cells for immunophenotypic analysis were derived from surgical biopsy of thymus. CD45 vs side scatter gating was utilized to identify a lymphoid analysis region that comprises approximately 93% of all cells. The following markers were assessed: CD2, CD3, CD4, CD5, CD7, CD8, CD10, CD19, CD45, CD56, kappa light chain, and lambda light chain. CLINICAL INFORMATION mediastinal mass -thymus [facility] 05/06/2024 4:44 PM EDT Chace Grijalva MD PATHOLOGY/CYTOLOGY ORDERABLES Performing Organization Address City/[facility]/[place] [address] * Immunophenotyping Flow Cytometry (05/06/2024 4:44 PM EDT) Immunophenotyping Flow See Comment [facility] Comment: When completed by the Pathologist, the Flow Cytometry Report ([id number]) will display under the Pathology Results section within eDH. Other Other / Unknown 05/06/2024 4 :44 PM EDT 05/06/2024 5:33 PM EDT Narrative Resulting Agency Comment Spec In Lab Authorizing Provider Result Andrzej Grijalva MD HEMATOLOGY ORDERABL ES Performing Organization Address City/[facility]/[place] [address] * Specimen to Pathology (05/06/2024 4:18 PM EDT) AP Specimen 05/06/2024 4:18 PM EDT 05/06/2024 4:18 PM EDT Narrative [facility] - 05/06/2024 4:18 PM EDT Specimen requisition ordered. ??Separate Pathology report to follow Authorizing Provider Result Andrzej Grijalva MD PATHOLOGY/CYTOLOGY ORDERABLES Performing Organization Address City/[facility]/[place] [address] * (ABNORMAL) Surgical Pathology Report (05/06/2024 4:05 PM EDT) Final Diagnosis [id number] ? Location: [facility]; [facility]; The signing pathologist has (i) examined the relevant preparation(s) for the specimen(s) and (ii) rendered or confirmed the diagnosis(es). . ?Surgical Pathology DIAGNOSIS A - Left superior lateral margin, cauterized area is lateral, excision: - One lymph node, ??negative for tumor (0/1). - Fibroadipose tissue, negative for tumor. B - Anterior mediastinal inferior fat, excision: - Fibroadipose tissue, negative for tumor. C - Thymus, radical thymectomy: - Thymoma, 2.5 cm, type AB, with capsular invasion ?(See SYNOPTIC REPORT). - Three lymph nodes, negative for tumor (0/3). Electronically signed by: ?Galen CONNER, Adriana Davila Verified: ??05/16/2024 9:56 ?? Pathologist Performed at: ??-[facility] Dept. of Pathology, [place] [address] Jack Setter: Inna Khan MD, FCAP, ??IA Certificate: [id number] SYNOPTIC Specimen ? Procedure: ??Thymectomy Tumor ? Tumor Site: ??Thymus ? Histologic Type: ??Type AB thymoma ? Tumor Size: ??2.5 Centimeters (cm) ? Lymphovascular Invasion: ??Not identified ? Treatment Effect: ??No known presurgical therapy ? Site(s) Involved by Direct Tumor Invasion: ??Macroscopic invasion into thymic ?or perithymic fat Margins ? Margin Status: ??All margins negative for tumor ?Distance from Tumor to Closest Margin: ??Thymoma abuts the lateral margin ? in the main specimen (C2); however, the separately submitted lateral ? margin (part B) is negative for tumor, with an estimated clearance of 7.0 ? mm. Tumor also comes to <1.0 mm from the posterior surface of the main ? specimen (A1). Regional Lymph Nodes ? Regional Lymph Node Status: ??All regional lymph nodes negative for tumor ? Number of Lymph Nodes Examined: ??4 Pathologic Stage Classification (pTNM, AJCC 8th Edition) ? pT Category: ??pT1a ? pN Category: ??pN0 ? Modified Masaoka Stage: ??Stage IIb Best Tumor Blocks for Future Studies ? Tumor Block(s): ??C1-C3 ? Normal Block(s): ??C6 ? CAP [facility] 2021 Q1 Release DISCUSSION THIS RESULT REQUIRES PHYSICIAN/A.P.P. FOLLOW UP ADDITIONAL STUDIES Multiple deeper levels were examined (C2). . SPECIMEN(S) SUBMITTED A - Left superior lateral margin, cauterized area is lateral, excision (1) B - Anterior mediastinal inferior fat, excision (1) C - Radical thymectomy, short stitch superior; long stitch left lateral, excision (1) CLINICAL INFORMATION Mediastinal mass SPECIMEN PROCESSING A - Labeled/Fixative: Left superior lateral margin, cauterized area is lateral, fresh. Quantity/Size: Single, 2.5 x 1.7 x 0.7 cm. Tissue Description: Portion of adipose tissue with cautery. ??The cauterized areas are inked yellow. ??Sectioning shows lobulated adipose tissue with a single lymph node measuring 0.7 x 0.5 x 0.4 cm. Sections/Processi ng: Serially sectioned and entirely submitted in 2 cassettes as follows: ?A1-A2: ??Specimen, serially sectioned and entirely submitted with lymph node in ? block A1 B - Labeled/Fixative: Anterior mediastinal inferior fat, fresh. Quantity/Size: Single, 7.5 x 5.0 x 1.5 cm. Tissue Description: Adipose tissue with a glistening smooth membranous surface. ??No lesions or lymph nodes are grossly identified. Sections/Processi ng: [employer] sections in 1 cassette labeled B1. C - Labeled/Fixative: Radical thymectomy, short stitch superior; long stitch left lateral, fresh. Quantity/Size: Single, 20.3 cm (superior to inferior) by 13.7 cm (medial-lateral) by 2.3 cm (anterior-posteri or), 189 g. Tissue Description: Thymus/mediastina l adipose tissue excision oriented with a short stitch superior and a long stitch left lateral. Inking: Superior-orange, inferior-green, medial-red, left lateral-yellow, anterior blue, posterior black LESION Size: 2.5 x 2.5 x 2.2 cm Description: Bulging, circumscribed rubbery lewis-white mass with macroscopic invasion through capsule into adjacent thymic tissue/fat. MARGINS Lateral-yellow: Less than 0.1 cm Medial-red: 7.8 cm Superior-orange: 1.7 cm Anterior-blue: 0.9 cm Posterior-black: Less than 0.1 cm Inferior-green: 14.3 cm Lymph nodes: 3 lymph nodes measuring up to 1.8 cm Sections/Processi ng: [employer]orer sections in 11 cassettes as follows: ?C1-C2: ??Mass with lateral-yellow and posterior-black ?C3-C4: ??Mass with posterior-black ?C5: ??Mass with posterior-black/l ateral-yellow/ant erior-blue ?C6: ??Superior-orange margin, perpendicular sections ?C7: ??Medial-red margin, perpendicular section ?C8: ??Inferior-green margin with anterior-blue/pos terior-black, perpendicular ? section ?C9: ??Single trisected lymph node ?C10: ??Single intact lymph node ?C11: ??Single intact candidate lymph ??varun(A) 05/16/2024 9:56 AM EDT [facility] THYMUS GLAND STRUCTURE / Unknown 05/06/2024 4:05 PM EDT 05/06/2024 4:05 PM EDT SOFT TISSUE MASS / Unknown 05/06/2024 4:05 PM EDT 05/06/2024 4:05 PM EDT THYMUS GLAND STRUCTURE / Unknown 05/06/2024 4:05 PM EDT 05/06/2024 4:05 PM EDT Narrative Authorizing Provider Result Andrzej Grijalva MD PATHOLOGY/[place] [address] * Specimen to Pathology (05/06/2024 4:05 PM EDT) AP Specimen 05/06/2024 4:05 PM EDT 05/06/2024 4:05 PM EDT Narrative [facility] - 05/06/2024 4:05 PM EDT Specimen requisition ordered. ??Separate Pathology report to follow Authorizing Provider Result Andrzej Grijalva MD PATHOLOGY/CYTOLOGY ORDERABLES Performing Organization Address City/[facility]/[place] [address] documented in this encounter Visit Diagnoses Diagnosis Mediastinal mass- Primary Swelling, mass, or lump in chest Mediastinal mass Swelling, mass, or lump in chest documented in this encounter Admitting Diagnoses Diagnosis Mediastinal mass Swelling, mass, or lump in chest documented in this encounter Administered Medications Inactive Administered Medications - up to 3 most recent administrations Medication Order MAR Action Action Date Dose Rate Site acetaminophen (Tylenol) tablet 975 mg 975 mg, Oral, EVERY 6 HOURS SCHEDULED, First dose on 05/07/24 at 0200, Until Discontinued, Maximum dose of acetaminophen is 4,000 mg from all sources in 24 hours. When ordered for pain, acetaminophen should be given even when other ordered pain medications are indicated., Recovery (Recovery-Hospital Unit), Routine Given 05/07/2024 8:41 AM EDT 975 mg Given 05/07/2024 1:39 AM EDT 975 mg albuteroL (Proventil, Ventolin) (2.5 mg/3 mL) (0.083 %) nebulizer solution 2.5 mg 2.5 mg, Nebulization, EVERY 6 HOURS, First dose on Thu05/06/24 at 1930, Until Discontinued, Routine Given 05/07/2024 8:42 AM EDT 2.5 mg Given 05/07/2024 1:30 AM EDT 2.5 mg Given 05/06/2024 8:19 PM EDT 2.5 mg amitriptyline (Elavil) tablet 100 mg 100 mg, Oral, NIGHTLY, First dose (after last modification) on 05/07/24 at 2100, Until Discontinued, Routine amLODIPine (Norvasc) tablet 10 mg 10 mg, Oral, DAILY, First dose on Thu05/07/24 at 0900, Until Discontinued, Hold for SBP<90 , Routine Given 05/07/2024 8:41 AM EDT 10 mg budesonide-formoteroL (Symbicort) 80-4.5 mcg/actuation inhaler 2 Inhalation 2 .Inhalation , Inhalation, EVERY 12 HOURS SCHEDULED (2 times per day), First dose on Thu05/07/24 at 0145, Until Discontinued, Prime inhaler before first use or if has not been used for more than 5 days. Shake well prior to each use. Rinse mouth with water (spit out without swallowing) after each use., Routine Given 05/07/2024 8:44 AM EDT 2 .Inhalation Given 05/07/2024 1:46 AM EDT 2 .Inhalation buPROPion XL (Wellbutrin XL) tablet 150 mg 150 mg, Oral, DAILY, First dose on Thu05/07/24 at 0900, Until Discontinued, DO NOT CRUSH OR OPEN, Routine Given 05/07/2024 8:41 AM EDT 150 mg docusate sodium (Colace) capsule 100 mg 100 mg, Oral, 3 TIMES DAILY, First dose on 05/07/24 at 0900, Until Discontinued, Routine Given 05/07/2024 8:41 AM EDT 100 mg escitalopram (Lexapro) tablet 10 mg 10 mg, Oral, DAILY, First dose on 05/07/24 at 0900, Until Discontinued, Routine Given 05/07/2024 8:41 AM EDT 10 mg heparin (porcine) (5,000 units/1 mL) subcutaneous injection 5,000 Units 5,000 Units, Subcutaneous, LEATHER ROLLER TO O.R., 1 dose, On Thu05/06/24 at 1230, May be given without time restriction AFTER placement of an epidural. If administered prior to epidural placement WAIT 6 hours before placing the epidural., Day of Surgery (Day of Procedure), Routine Given 05/06/2024 12:17 PM EDT 5,000 Units heparin (porcine) (5,000 units/1 mL) subcutaneous injection 5,000 Units 5,000 Units, Subcutaneous, EVERY 8 HOURS SCHEDULED, First dose on Thu05/07/24 at 0200, Until Discontinued, Routine Given 05/07/2024 1:40 AM EDT 5,000 Units ketorolac (Toradol) (15 mg/mL) injection 15 mg 15 mg, Intravenous, EVERY 8 HOURS SCHEDULED, 6 doses, First dose on Thu05/06/24 at 2200, Last dose on Thu05/08/24 at 1400, Recovery (Recovery-Hospital Unit), Routine Given 05/07/2024 5:20 AM EDT 15 mg Given 05/06/2024 9:56 PM EDT 15 mg ondansetron (pf) (Zofran) (2 mg/mL) injection 4 mg 4 mg, Intravenous, EVERY 30 MIN PRN, 2 doses, Starting on Thu05/06/24 at 1703, Until Thu05/06/24 at 1915, Nausea, Maximum total dose of 8 mg (including OR administration). If multiple antiemetics ordered, use ondansetron first and if ineffective use prochlorperazine or haloperidoL second, PACU Recovery Given 05/06/2024 7:15 PM EDT 4 mg Given 05/06/2024 6:34 PM EDT 4 mg pantoprazole EC (Protonix) tablet 40 mg 40 mg, Oral, DAILY, First dose on Thu05/07/24 at 0900, Until Discontinued, DO NOT CRUSH OR OPEN, Routine Given 05/07/2024 8:41 AM EDT 40 mg prochlorperazine (Compazine) (5 mg/mL) injection 10 mg 10 mg, Intravenous, EVERY 6 HOURS PRN, Starting on Thu05/06/24 at 2009, Until Thu05/07/24 at 1205, Nausea, for nausea or vomiting not controlled with zofran, Routine Given 05/06/2024 8:19 PM EDT 10 mg sodium chloride 0.9 % (flush) (BD PosiFlush Normal Saline 0.9) flush 5 mL 5 mL, Intravenous, 2 TIMES DAILY, First dose on 05/07/24 at 0145, Until Discontinued, Recovery (Recovery-Hospital Unit), Routine Given 05/07/2024 8:42 AM EDT 5 mLs Given 05/07/2024 1:38 AM EDT 5 mLs sodium chloride 0.9% infusion 100 mL/hr, Intravenous, CONTINUOUS, Starting on Thu05/06/24 at 1815, Until Thu05/06/24 at 2214, Recovery (Recovery-Hospital Unit) New Bag 05/06/2024 6:09 PM EDT 100 mL/hr 100 mL /hr tamsulosin (Flomax) capsule 0.4 mg 0.4 mg, Oral, DAILY, First dose on 05/07/24 at 0900, Until Discontinued, DO NOT CRUSH OR CHEW, Routine Given 05/07/2024 8:41 AM EDT 0.4 mg documented in this encounter Active and Recently Administered Medications Times are shown in EDT. Scheduled Medication Order 05/05/2024 05/06/2024 05/07/2024 acetaminophen (Tylenol) tablet 975 mg 975 mg, Oral, EVERY 6 HOURS SCHEDULED, First dose on 05/07/24 at 0200, Until Discontinued, Maximum dose of acetaminophen is 4,000 mg from all sources in 24 hours. When ordered for pain, acetaminophen should be given even when other ordered pain medications are indicated., Recovery (Recovery-Hospital Unit), Routine 013 (Given - Provid er: Daniela Camarillo RN)0841 (Given - Provider: Tameka Fang RN) albuteroL (Proventil, Ventolin) (2.5 mg/3 mL) (0.083 %) nebulizer solution 2.5 mg 2.5 mg, Nebulization, EVERY 6 HOURS, First dose on Thu05/06/24 at 1930, Until Discontinued, Routine 2018 (Given - Provider: Daniela Camarillo RN) 013 (Given - Provider: Daniela Camarillo RN)0842 (Given - Provider: Tameka Fang, RN) amitriptyline (Elavil) tablet 100 mg 100 mg, Oral, NIGHTLY, First dose (after last modification) on 05/07/24 at 2100, Until Discontinued, Routine amLODIPine (Norvasc) tablet 10 mg 10 mg, Oral, DAILY, First dose on 05/07/24 at 0900, Until Discontinued, Hold for SBP<90 , Routine 0841 (Given - Provid er: Tameka Fang RN) budesonide-formoteroL (Symbicort) 80-4.5 mcg/actuation inhaler 2 Inhalation 2 .Inhalation , Inhalation, EVERY 12 HOURS SCHEDULED (2 times per day), First dose on 05/07/24 at 0145, Until Discontinued, Prime inhaler before first use or if has not been used for more than 5 days. Shake well prior to each use. Rinse mouth with water (spit out without swallowing) after each use., Routine 0145 (Not Given - Provider: Daniela Camarillo RN - Reason: Patient not available)0146 (Given - Provider: Daniela Camarillo RN)0844 (Given - Provider: Tameka Fang RN) buPROPion XL (Wellbutrin XL) tablet 150 mg 150 mg, Oral, DAILY, First dose on 05/07/24 at 0900, Until Discontinued, DO NOT CRUSH OR OPEN, Routine 0841 (Given - Provid er: Tameka Fang RN) ceFAZolin (Ancef) 2 g vial attach to sodium chloride 0.9% 100 mL Mini-Bag Plus (COMPLETED) 2 g, Intravenous, LEATHER ROLLER TO O.R., 1 dose, On Thu05/06/24 at 1230, Administer over 30 Minutes, Intra-Operative (Intra-Procedure), Indication for (Active or Suspected): Prophylaxis 1411 (New Bag - Provider: Juan Jose Ferguson CRNA) docusate sodium (Colace) capsule 100 mg 100 mg, Oral, 3 TIMES DAILY, First dose on 05/07/24 at 0900, Until Discontinued, Routine 0841 (Given - Provid er: Tameka Fang RN) escitalopram (Lexapro) tablet 10 mg 10 mg, Oral, DAILY, First dose on 05/07/24 at 0900, Until Discontinued, Routine 0841 (Given - Provid er: Tameka Fang RN) heparin (porcine) (5,000 units/1 mL) subcutaneous injection 5,000 Units (COMPLETED) 5,000 Units, Subcutaneous, LEATHER ROLLER TO O.R., 1 dose, On Thu05/06/24 at 1230, May be given without time restriction AFTER placement of an epidural. If administered prior to epidural placement WAIT 6 hours before placing the epidural., Day of Surgery (Day of Procedure), Routine 1217 (Given - Provider: Janet Becerra RN) heparin (porcine) (5,000 units/1 mL) subcutaneous injection 5,000 Units 5,000 Units, Subcutaneous, EVERY 8 HOURS SCHEDULED, First dose on Thu05/07/24 at 0200, Until Discontinued, Routine 0140 (Given - Provid er: Daniela Camarillo RN)1000 (Due) ketorolac (Toradol) (15 mg/mL) injection 15 mg 15 mg, Intravenous, EVERY 8 HOURS SCHEDULED, 6 doses, First dose on Thu05/06/24 at 2200, Last dose on Thu05/08/24 at 1400, Recovery (Recovery-Hospital Unit), Routine 2156 (Given - Provider: Daniela Camarillo RN) 0520 (Given - Provider: Daniela Camarillo RN) melatonin tablet 10.5 mg 10.5 mg (rounded from 10 mg), Oral, NIGHTLY, First dose on Thu05/07/24 at 2100, Until Discontinued mirtazapine (Remeron) tablet 30 mg 30 mg, Oral, NIGHTLY, First dose on Thu05/07/24 at 2100, Until Discontinued, Routine pantoprazole EC (Protonix) tablet 40 mg 40 mg, Oral, DAILY, First dose on Thu05/07/24 at 0900, Until Discontinued, DO NOT CRUSH OR OPEN, Routine 0841 (Given - Provid er: Tameka Fang RN) senna (Senokot) tablet 17.2 mg 17.2 mg, Oral, EVERY EVENING, First dose on 05/07/24 at 1700, Until Discontinued, Routine sodium chloride 0.9 % (flush) (BD PosiFlush Normal Saline 0.9) flush 5 mL 5 mL, Intravenous, 2 TIMES DAILY, First dose on 05/07/24 at 0145, Until Discontinued, Recovery (Recovery-Hospital Unit), Routine 0138 (Given - Provid er: Daniela Camarillo RN)0842 (Given - Provider: Tameka Fang, ISREAL) tamsulosin (Flomax) capsule 0.4 mg 0.4 mg, Oral, DAILY, First dose on 05/07/24 at 0900, Until Discontinued, DO NOT CRUSH OR CHEW, Routine 0841 (Given - Provid er: Tameka Fang RN) Continuous Medication Order 05/05/2024 05/06/2024 05/07/2024 sodium chloride 0.9% infusion () 100 mL/hr, Intravenous, CONTINUOUS, Starting on Thu05/06/24 at 1815, Until Thu05/06/24 at 2214, Recovery (Recovery-Hospital Unit) 1809 (New Bag - Provider: Brittaney Campos, ISREAL) PRN Medication Order 05/05/2024 05/06/2024 05/07/2024 BUpivacaine (pf) (Marcaine) (5 mg/mL) 0.5% injection (CANCELED) PRN, Starting on Thu05/06/24 at 1715, Until 05/07/24 at 1205, Intra-Operative (Intra-Procedure), Routine 1715 (Given - Provider: Chace Grijalva MD) lidocaine (Xylocaine) 1% (10 mg/mL) injection 3 mg 3 mg (0.3 mL), Subcutaneous, ONCE PRN, 1 dose, Starting on 05/07/24 at 0128, Until 05/07/24 at 1205, for discomfort with PIV insertion, Recovery (Recovery-Hospital Unit), Routine ondansetron (pf) (Zofran) (2 mg/mL) injection 4 mg (COMPLETED) 4 mg, Intravenous, EVERY 30 MIN PRN, 2 doses, Starting on Thu05/06/24 at 1703, Until Thu05/06/24 at 1915, Nausea, Maximum total dose of 8 mg (including OR administration). If multiple antiemetics ordered, use ondansetron first and if ineffective use prochlorperazine or haloperidoL second, PACU Recovery 1834 (Given - Provider: Kati Campos, RN)1915 (Given - Provider: Tarsha Faustin, RN) ondansetron (pf) (Zofran) (2 mg/mL) injection 4 mg 4 mg, Intravenous, EVERY 8 HOURS PRN, Starting on 05/07/24 at 0128, Until 05/07/24 at 1205, Nausea prochlorperazine (Compazine) (5 mg/mL) injection 10 mg 10 mg, Intravenous, EVERY 6 HOURS PRN, Starting on 05/06/24 at 2009, Until 05/07/24 at 1205, Nausea, for nausea or vomiting not controlled with zofran, Routine 2019 (Given - Provider: Daniela Camarillo, ISREAL) sodium chloride 0.9 % (flush) (BD PosiFlush Normal Saline 0.9) flush 5-20 mL 5-20 mL, Intravenous, EVERY 1 MIN PRN, Starting on 05/07/24 at 0128, Until 05/07/24 at 1205, flush, Flush pertains to all indwelling lines. Flush per protocol found in the job aid using the link provided on this medication record., Recovery (Recovery-Hospital Unit), Routine documented in this encounter Care Teams Clam Dredger Relationship Specialty Start Date End Date Kenia Devine MD [address] [place] [address] [place] [address] PCP - General Family Medicine 06/02/22 documented as of this encounter
--- OUTSIDE RECORDS SUMMARY | 2024-07-07 11:42 | XMS_ITS | Encounter Summary ---
Author Organization [facility] Address [facility] [place] [address] Care Team Providers Care It Programmer Analyst Name Role Phone Kenia Devine MD Primary Care Provider [phone] Reason for Referral * Diagnostic Test (Routine) - New Request Specialty Diagnoses / Procedures Referred By Dasia phelps Referred To Contact Radiology Diagnoses Thymoma S/P thymectomy Procedures CT Chest w Contrast Chace Enriquez MD [facility] [place] [address] [facility] [place] [address] Referral ID Status Reason Start Date Expiration Date Visits Requested Visits Authorized [id number] New Request Specialty Service Requested 05/27/2024 11/26/2025 1 1 Reason for Visit * Reason Comments Follow-up Encounter Details Date Type Department Care Team (Late st Contact Info) Description 05/26/2024 1:15 PM EDT Office Visit [place] [address] Chace Enriquez MD [facility] [place] [address] Thymoma; S/P thymectomy Social History Tobacco Use Types Packs/Day Years Used Date Smoking Tobacco: Never Smokeless Tobacco: Never Alcohol Use Standard Drinks/Week Comments Not Currently 0 (1 standard drink = 0.6 oz pur e alcohol) [facility] Inpatient Questions Answer Date Recorded Does [...] Sign Reading Time Taken Comments Blood Pressure 129/86 05/26/2024 1:41 PM EDT Pulse 71 05/26/2024 1:41 PM EDT Temperature 36 ??C (96.8 ??F) 05/26/2024 1:41 PM EDT Respiratory Rate 18 05/26/2024 1:41 PM EDT Oxygen Saturation 100% 05/26/2024 1:41 PM EDT Inhaled Oxygen Concentration - - Weight 122.4 kg (269 lb 13.5 oz) 05/26/2024 1:41 PM EDT Height 180.9 cm (5' 11.22) 05/26/2024 1:41 PM E DT Body Mass Index 37.4 05/26/2024 1:41 PM EDT documented in this encounter Patient Instructions * Patient Instructions* Meghan Victoria RN - 05/26/2024 1:15 PM EDT Thank you for visiting Dr. Enriquez in clinic 05/26/24 Dr. Enriquez would like to see you back in clinic in 6 months with a recent CT scan of your chest with IV contrast. You will receive a letter in the mail/ receive a call to schedule this appointment. Exercise each day for 30 minutes or longer. Daily aerobic exercise for at least 30 minutes will help improve your endurance and improve the breathing capacity of your lungs. This means that you are breathing hard, your heart is beating fast and that you are sweating. Examples of this include walking, biking, swimming, and using a treadmill or stationary bike. Please call Thoracic surgery at with any questions or concerns. documented in this encounter Progress Notes * Chace Enriquez MD - 05/26/2024 1:15 PM EDT Thoracic Surgery Attending Outpatient Consultation Note Chace Enriquez MD [place] [address] FAX: Today I saw Mr. 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 He was discharged after an uneventful postoperative course. He is breathing comfortably and denies fevers. He is off pain medication and has no complaints today. On physical examination today, his height is 180.9 cm (5' 11.22) and weight is 122.4 kg (269 lb 13.5 oz). His temporal temperature is 36 ??C (96.8 ??F). His blood pressure is 129/86 and his pulse is71. His respiration is 18 and oxygen saturation is 100%. Body mass index is 37.4 kg/m??. In general, he is in no acute distress. His pupils are reactive. His incisions are healing well with no erythema or drainage. His abdomen is soft and nontender. His extremities are warm with no edema. Neurologically, he is grossly intact. Today's chest x-ray shows postoperative changes with no acute infiltrates, masses nor effusion. In summary, Mr. Joe Garcia has made a good early recovery from his robotic radical thymectomy. 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 We discussed the consensus recommendations of our multidisciplinary [facility] thoracic oncology tumor board for standard surveillance. I reviewed with him the recommended follow-up imaging planof a Chest CT with contrast for which he will return to see me in 6 months. He knows to call my office in the interim if questions or concerns arise. Chace Enriquez MD 05/26/24 documented in this encounter Plan of Treatment Scheduled Orders Name Type Priority Associated Diagnoses Orde r Schedule CT Chest w Contrast Imaging Routine Thymoma S/P thymectomy Expected: 11/26/2024, Expires: 05/26/2025 Creatinine Lab Routine Thymoma S/P thymectomy Expected: 11/26/2024, Expires: 05/26/2025 documented as of this encounter Visit Diagnoses Diagnosis Thymoma Benign neoplasm of thymus S/P thymectomy documented in this encounter Care Teams It Programmer Analyst Relationship Specialty Start Date End Date Kenia Devine MD [address] [place] [address] [place] [address] PCP - General Family Medicine 06/02/22 documented as of this encounter
--- OUTSIDE RECORDS SUMMARY | 2024-07-07 11:42 | XMS_ITS | Clinical Summary ---
Author Organization [facility] Address [facility] [place] [address] Care Team Providers Care Crew Trainer Name Role Phone Kenia Devine MD Primary Care Provider [phone] Allergies Active Allergy Reactions Criticality Noted Date Comments Facial Mask Other (See Comments) High 06/03/2018 rhinositis Egg Nausea And Vomiting 04/20/2024 Fish Containing Products Nausea And Vomiting High Hydrochlorothiazide 04/20/2024 laryngeal spasm Metoclopramide Hives 04/20/2024 Mold 04/20/2024 Peanut Anaphylaxis High 06/03/2018 Shellfish Containing Products Nausea And Vomiting High 06/03/2018 Tree Nut Anaphylaxis High 04/20/2024 Hydrocodone-Acetaminophen Other (See Comments) 08/31/2020 Throat gets itchy Medications Medication Sig Dispensed Refills Start Date End Date Status buPROPion (WELLBUTRIN XL) 150 mg Tablet Extended Release 24 hr 0 05/02/2018 Active mirtazapine (REMERON) 15 mg Tablet 30 mg. 0 05/26/2018 Active risperiDONE (RISPERDAL) 1 mg Tablet 0 05/26/2018 Active PROAIR HFA 90 mcg/actuation HFA Aerosol Inhaler INHALE 2 PUFFS EVERY 4 HOURS 0 03/30/2018 Active EPINEPHrine (ADRENALIN) 0.1 mg/mL (1:10,000) Syringe Inject as directed as needed. Active melatonin 5 mg Tablet Take 10 mg by mouth nightly. Active omeprazole (PriLOSEC) 20 mg Capsule, Delayed Release(E.C.) Take 40 mg by mouth daily. Active budesonide-formoter oL (SYMBICORT) 80-4.5 mcg/actuation HFA Aerosol Inhaler Inhale into the lungs as needed. Active prochlorperazine (Compazine) 10 mg Tablet Take 10 mg by mouth as needed for Nausea. Active ondansetron (Zofran) 4 mg Tablet Take 4 mg by mouth as needed for Nausea. Active amitriptyline (Elavil) 10 mg Tablet Take 10 mg by mouth nightly. Active prochlorperazine (Compazine) [address] 25 mg rectally every 12 hours as needed for Nausea. Active baclofen (Lioresal) 10 mg Tablet TAKE ONE TABLET BY MOUTH THREE TIMES A DAY NEEDED FOR 4 DAYS 10/17/2021 Active cyclobenzaprine (Flexeril) 10 mg Tablet as needed. 12/10/2021 Active nabumetone (Relafen) 500 mg Tablet TAKE ONE TABLET BY MOUTH TWICE A DAY NEEDED 12/10/2021 Active ondansetron ODT (Zofran-ODT) 4 mg Tablet, Rapid Dissolve DISSOLVE ONE TABLET ON TONGUE EVERY 6 HOURS NEEDED 11/28/2021 Active tamsulosin (Flomax) 0.4 mg Capsule TAKE ONE CAPSULE BY MOUTH EVERY DAY 09/18/2021 Active escitalopram (Lexapro) 10 mg Tablet Take 10 mg by mouth daily. Active amLODIPine (Norvasc) 10 mg Tablet TAKE ONE TABLET BY MOUTH EVERY DAY 01/17/2022 Active ciprofloxacin-dexam ethasone (Ciprodex) 0.3-0.1 % Drops, Suspension INSTILL 4 DROPS INTO AFFECTED EAR(S) TWO TIMES A DAY FOR 7 DAYS 01/22/2022 Active predniSONE (Deltasone) 10 mg Tablet TAKE 5 TABLETS BY MOUTH FOR 3 DAYS, THEN TAKE 4 TABLETS FOR 3 DAYS, THEN 3 TABLETS FOR 3 DAYS, THEN 2 TABLETS FOR 3 DAYS, THEN 1 TABLET FOR 09/26/2021 Active SUMAtriptan (IMITREX) 20 mg/actuation [place], Non-Aerosol as needed. 01/23/2022 Active traMADoL (Ultram) 50 mg Tablet Take 1 tablet by mouth every 6 hours as needed for Pain. 10 tablet 01/31/2022 Active albuteroL 90 mcg/actuation inhaler (HFA) Inhale 2 puffs into the lungs every 4 hours as needed for Wheezing. Use with Spacer Active oxyCODONE (Roxicodone) 5 mg tablet Take 1 tablet by mouth every 4 hours as needed for Pain. 5 tablet 05/07/2024 Active Additional Information Patient not taking.Reported on 05/26/2024 Active Problems Problem Noted Date Diagnosed Date Mediastinal mass 05/06/[address] 04/20/2024 Allergic rhinitis 04/20/2024 [...] Bilateral knee pain 04/20/2024 Severe recurrent major depre ssion without psychotic features 02/03/2022 S/p R endoscopic CTS release 01/31/22 (Dr. Daisy sigala) 01/27/2022 Adult attention deficit hyperactivity disorder 0 06/28/2021 Intracranial arachnoid cysts 02/12/2021 Pyloric stenosis 09/20/2019 Dysuria 06/23/2018 Encounters Date Type Department Care Team Description 05/26/2024 1:15 PM EDT Office Visit [place] [address] Chace Enriquez MD Thymoma; S/P thymectomy 05/26/2024 11:00 AM EDT - 05/26/2024 11:59 PM EDT Hospital Encounter XRay at [address] [place] [address] Mediastinal mass Discharge Disposition: Home 05/26/2024 Travel 05/24/2024 Multidisciplinary Ca re Committee [place] [address] Chace Enriquez MD 05/10/2024 Telephone [place] [address] Meghan Victoria, RN 05/06/2024 1:40 PM EDT Anesthesia Event Main Operating Room [place] [address] Calderon Issa MD Keane, Patrick C, CRNA 05/06/2024 1:15 PM EDT - 05/06/2024 4:42 PM EDT Surgery Main Operating Room [place] [phone] Chace Enriquez MD @ROBOTIC THYMECTOMY W/ RAD. MEDIASTINAL DISSECTION (WRVU 23.48) 05/06/2024 11:54 AM EDT - 05/07/2024 10:05 AM EDT Hospital Encounter PACU at [place] [phone] Chace Enriquez MD Mediastinal mass Discharge Disposition: Home 04/27/2024 Telephone Thoracic Surgery at [place] [address] Meghan Victoria, RN 04/26/2024 Telephone Thoracic Surgery at [place] [phone] Meghan Victoria, RN 04/22/2024 Telephone Thoracic Surgery at [place] [phone] Meghan Victoria, RN 04/22/2024 Telephone Thoracic Surgery at [place] [phone] Dacia Blackwell 04/21/2024 10:15 AM EDT Office [place] [address] Chace Enriquez MD Mediastinal mass 04/21/2024 Travel 04/06/2024 Telephone [place] [address] Salvador Blair from Last 3 Months Social History Tobacco Use Types Packs/Day Years Used Date Smoking Tobacco: Never Smokeless Tobacco: Never Alcohol Use Standard Drinks/Week Comments Not Currently 0 (1 standard drink = 0.6 oz pur e alcohol) DH IPV Inpatient Questions Answer Date Recorded Does [...] on file Sexual Orientation Not on file Last Filed Vital Signs Vital Sign Reading [...] Mass Index 37.4 05/26/2024 1:41 PM EDT Plan of Treatment Health Maintenance Due Date Last Done Comments CT Colonography 1964 FIT DNA 1964 FIT 1964 Sigmoidoscopy 1964 Pneumococcal Vaccine: At-Ris k 5-64yrs (1 of 2 - PCV) 1970 HIV screen 1982 Hepatitis C Screening 1982 Lipid Screening 1982 Hepatitis B vaccine (0-59 yrs) (1) 1983 Tdap adult 1983 Tetanus vaccine 1983 Zoster vaccine (1 of 2) 2014 Advance Directive 2019 Covid-19 Vaccine (4 - 2022-2 4 season) 2023 12/30/2021, 03/05/2021, 02/05/2021 Influenza (Flu) vaccine (1 o f 1 - Influenza standard series) 07/17/2024 Pre-DM monitoring (HgbA1C or FBG) 04/21/2025 024, 08/16/2020 Colonoscopy 08/31/2030 08/31/2020, 08/31/2020 Colorectal Cancer Screening 08/31/2030 Sigmoidoscopy (10 year) with FIT yearly 08/31/2030 08/31/2020, 08/31/2020 Diabetes Screening (HgbA1C o r Glucose) Discontinued 04/21/2024, 08/16/2020 Procedures Procedure Name Priority Date/Time Associated Diagnosis Comments XR CHEST PA AND LATERAL Routine 05/26/20 11:11 AM EDT Mediastinal mass XR CHEST ONE VIEW STAT 05/06/2024 7:0 1 PM EDT SCAN DOC: TELEMETRY STRIPS 05/06/2024 5:40 PM EDT SPECIMEN TO PATHOLOGY Routine 05/06/2024 4:45 PM EDT FLOW CYTOMETRY REPORT Routine 05/06/2024 4:44 PM EDT IMMUNOPHENOTYPING FLOW CYTOMETRY (BLOOD) Routine 05/06/2024 4:44 PM EDT SPECIMEN TO PATHOLOGY Routine 05/06/2024 4:18 PM EDT SURGICAL PATHOLOGY REPORT Routine 2023 4:05 PM EDT SPECIMEN TO PATHOLOGY Routine 05/06/2024 4:05 PM EDT MODIFIER ROBOT,UZIELI XI 2023 1:40 PM EDT Mediastinal mass Bronchoscopy, Diagnostic (57363) 05/06/2024 1:40 PM EDT Mediastinal mass Thymectomy, Radical Mediast Disssec ([id number]) 05/06/2024 1:40 PM EDT Mediastinal mass ROBOTIC THYMECTOMY W/ RAD. MEDIASTINAL DISSECTION Routine 05/06/2024 12:04 PM EDT Mediastinal mass BRONCHOSCOPY,DIAGNOSTIC Routine 05/06/20 12:04 PM EDT Mediastinal mass DIFFERENTIAL, AUTOMATED Routine 04/21/20 11:26 AM EDT Mediastinal mass HEMOGRAM Routine 04/21/2024 11:26 AM EDT Mediastinal mass COMPREHENSIVE METABOLIC PANEL Routine 04/21/2024 11:26 AM EDT Mediastinal mass CBC (WITH DIFF) Routine 04/21/2024 11:26 AM EDT Mediastinal mass AFP TUMOR MARKER Routine 04/21/2024 11:2 6 AM EDT Mediastinal mass LACTATE DEHYDROGENASE Routine 04/21/2024 11:26 AM EDT Mediastinal mass BETA HCG, QUANTITATIVE Routine 11:26 AM EDT Mediastinal mass ACETYLCHOLINE RECEPTOR AB BINDING Routine 04/21/2024 11:26 AM EDT Mediastinal mass TSH Routine 04/21/2024 11:26 AM EDT Mediastinal mass EKG 12-LEAD Routine 04/21/2024 10:24 AM EDT COLONOSCOPY Routine 08/31/2020 10:08 AM EDT from Last 3 Months or Most Recently Relevant to Health Maintenance Results * XR Chest PA & Lateral (Generic) (05/26/2024 11:11 AM EDT) [email or web address] WORKSTATION ID [id number] RAD Anatomical Region Laterality Modality Chest N/A Digital Radiogra phy Impressions 05/26/2024 4:06 PM EDT No acute findings . Resolution of postoperative findings Thank you for letting us participate in the care of this patient. ??If you are a health care provider and have any questions regarding this report, please contact the number below. ??For patients who have questions please contact the health behavioral health care manager that requested your imaging first. ? Electronically signed by: Kailee Underwood MD, [facility] ([phone]), at 05/26/2024 4:06 PM Narrative 05/26/2024 4:06 [...] patients who have questions please contactthe health behavioral health care manager that requested your imaging first. Electronically signed by: Kailee Underwood MD, [facility]([phone]), at 05/26/2024 4:06 PM Chace Enriquez MD IMG DX ORDERABLES * XR Chest One View (05/06/2024 7:01 PM EDT) WORKSTATION ID [id number] RAD Anatomical Region Laterality Modality Chest N/A [...] who have questions please contact the health behavioral health care manager that requested your imaging first. ? Electronically signed by: Chace Johnson MD, [facility] ([phone]), at 05/06/2024 7:27 PM Narrative 05/06/2024 7:27 [...] patients who have questions please contactthe health behavioral health care manager that requested your imaging first. Electronically signed by: Chace Johnson MD, [facility]([phone]), at 05/06/2024 7:27 PM Chace Enriquez MD IMG DX ORDERABLES * Scan Doc: Telemetry Strips (05/06/2024 5:40 PM EDT) Narrative 05/06/2024 5:40 PM EDT Ordered by an unspecified provider. Scanning Provider MEDIA MGR SCAN EXT O RDR/RSLT * Specimen to Pathology (05/06/2024 4:45 PM EDT) Only the most recent of3 resultswithin the time period is included. AP Specimen 05/06/2024 4:45 PM EDT 05/06/2024 4:45 PM EDT Narrative [facility] - 05/06/2024 4:45 PM EDT Specimen requisition ordered. ??Separate Pathology report to follow Chace Enriquez MD PATHOLOGY/CYTOLOGY ORDERABLES [facility] [place] [address] * Immunophenotyping Flow Cytometry (05/06/2024 4:44 PM EDT) Immunophenotyping Flow See Comment [facility] Comment: When completed by the Pathologist, the Flow Cytometry Report ([id number]) will display under the Pathology Results section within eDH. Other Other / Unknown 05/06/2024 4 :44 PM EDT 05/06/2024 5:33 PM EDT Narrative Resulting Agency Comment Spec In Lab Chace Enriquez MD HEMATOLOGY ORDERABL ES [facility] [place] [address] * Flow Cytometry Report (05/06/2024 4:44 PM EDT) Flow Cytometry Report [id number] ? Location: PACU; [facility]; A The signing pathologist has (i) examined [...] Chris Verified: ??05/09/2024 18:59 ??Hematopathologist Performed at: ??-[facility] Dept. of Pathology, [place] [address] Winch Derrick Operator: Inna Khan MD, FCAP, ??CLIA Certificate: [id number] DISCUSSION Blasts based on CD45 expression and [...] express Cd10 There is no increase in RI37-nptbrzja/ CD3-neg NK cells. Flow analysis is an ancillary study. A definite diagnosis requires correlation with the morphologic features of this process and if necessary, correlation with other ancillary studies like immunohistochemistr y, enzyme cytochemistry and/or cyto/ molecular genetics. This test was developed and its performance characteristics determined by the Clinical Flow Cytometry Laboratory at [facility]. It has not been cleared or approved [...] high complexity clinical laboratory testing. SPECIMEN PROCESSING [id number] Cells for immunophenotypic analysis were derived from surgical biopsy of thymus. CD45 vs side scatter gating was utilized to identify a lymphoid analysis region that comprises approximately 93% of all cells. The following markers were assessed: CD2, CD3, CD4, CD5, CD7, CD8, CD10, CD19, CD45, CD56, kappa light chain, and lambda light chain. CLINICAL INFORMATION mediastinal mass -thymus [facility] 05/06/2024 4:44 PM EDT Chace Enriquez MD PATHOLOGY/CYTOLOGY ORDERABLES Performing Organization Address City/State/[facility] Co de Phone Number [facility] [place] [address] * (ABNORMAL) Surgical Pathology Report (05/06/2024 4:05 PM EDT) Final Diagnosis [id number] ? Location: PACU; PA23; A The signing pathologist has (i) [...] negative for tumor (0/3). Electronically signed by: ?Adriana Aaron MD Verified: ??05/16/2024 9:56 ?? Pathologist Performed at: ??-[facility] Dept. of Pathology, [place] [address] Winch Derrick Operator: Inna Khan MD, AP, ??IA Certificate: [id number] SYNOPTIC Specimen ? Procedure: ??Thymectomy Tumor ? [...] ??C1-C3 ? Normal Block(s): ??C6 ? CAP eCC 2021 Q1 Release DISCUSSION THIS RESULT REQUIRES [...] lymph nodes are grossly identified. Sections/Processi ng: Bore Miner Operator sections in 1 cassette labeled B1. C [...] measuring up to 1.8 cm Sections/Processi ng: Bore Miner Operator sections in 11 cassettes as follows: ?C1-C2: ??Mass with lateral-yellow and posterior-black ?C3-C4: ??Mass with posterior-black ?C5: ??Mass with posterior-black/l ateral-yellow/ant erior-blue ?C6: ??Superior-orange margin, perpendicular sections ?C7: ??Medial-red margin, perpendicular section ?C8: ??Inferior-green margin with anterior-blue/pos terior-black, perpendicular ? section ?C9: ??Single trisected lymph node ?C10: ??Single intact lymph node ?C11: ??Single intact candidate lymph ??ajw(A) 05/16/2024 9:56 AM EDT [facility] THYMUS GLAND STRUCTURE / Unknown 05/06/2024 4:05 PM EDT 05/06/2024 4:05 PM EDT SOFT TISSUE MASS / Unknown 05/06/2024 4:05 PM EDT 05/06/2024 4:05 PM EDT THYMUS GLAND STRUCTURE / Unknown 05/06/2024 4:05 PM EDT 05/06/2024 4:05 PM EDT Chace Enriquez MD PATHOLOGY/CYTOLOGY ORDERABLES [facility] [place] [address] * (ABNORMAL) Hemogram (04/21/2024 11:26 AM EDT) Pathologist [facility] White Blood Cell 7.3 4.0 - 9.5 x10(3)/ L [facility] Red Blood Cell 4.61 4.58 - 5.54 x10(6)/mc L [facility] Hemoglobin 12.7(L) 13.7 - 16.5 g/dL [facility] Hematocrit 38.4(L) 40.5 - 48.5 % [facility] Mean Cell Volume 83.3 82.9 - 93.1 fL [facility] Mean Cell Hemoglobin 27.5 27.5 - 32.1 pg [facility] Mean Cell Hemoglobin Concentration 33.1 32.0 - 35.7 g/dL [facility] Platelet 192 145 - 357 x10(3)/[facility] RDW Standard Deviation 41.3 36.0 - 45.0 [facility] RDW coefficient of variation 13.6 11.4 - 13.8 % [facility] Mean Platelet Volume 12.4 7.6 - 12.9 fL [facility] NRBC% auto 0.0 % [facility] NRBC Absolute 0.000 0.000 - 0.000 x10(3)/[facility] Blood 04/21/2024 11:2 6 AM EDT 04/21/2024 11:51 AM EDT Narrative Resulting Agency Comment Spec In Lab Chace Enriquez MD HEMATOLOGY ORDERABL ES [facility] [place] [address] * (ABNORMAL) Differential, Automated (04/21/2024 11:26 AM EDT) Neutrophil % 68.6 % [facility] Neutrophil Absolute 5.00 1.70 - 6.10 x10(3)/[facility] Lymph % 20.5 % [facility] Lymphocytes Abs 1.5 0.9 - 3.2 x10(3)/ L [facility] Monocyte % 7.7 % [facility] Monocyte Abs 0.6 0.3 - 0.9 x10(3)/ L [facility] Eos % 1.9 % [facility] Eosinophils Abs 0.1 0.0 - 0.4 x10(3)/ L [facility] Basophil % 0.5 % [facility] Baso Absolute 0.0 0.0 - 0.1 x10(3)/[facility] Immature Gran % 0.80 % [facility] Comment: Immature granulocytes(IG's)percentage and absolute count will include metamyelocytes, myelocytes, and promyelocytes. Blood smears from CBCs yielding IG's will be scanned manually for concordance. If this scan disagrees with the automated IG or if promyelocytes are noted, a manual differential will be performed. Immature Gran Absolute 0.06(H) 0.00 - 0.04 x10(3)/ L [facility] Blood 04/21/2024 11:2 6 AM EDT 04/21/2024 11:51 AM EDT Narrative Resulting Agency Comment Spec In Lab Chace Enriquez MD HEMATOLOGY ORDERABL ES [facility] [place] [address] * Acetylcholine Receptor Ab Binding (04/21/2024 11:26 AM EDT) Achr Binding Ab (MARCH) 0.00 <=0.02 nmol/L [facility] Comment: ADDITIONAL INFORMATION This test was developed and its performance characteristics determined by [facility] in a manner consistent with CLIA requirements. This test has not been cleared or approved by the U.S. Food and Drug Administration. Test Performed by: [place] [address] Radiologist Physician: Felipe Koo M.D. Ph.D.; CLIA# [id number] Blood 04/21/2024 11:2 6 AM EDT 04/21/2024 1:59 PM EDT Narrative Resulting Agency Comment Spec In Lab hCace Enriquez MD LAB SEND OUT ORDERA BLES Performing Organization Address [facility] Co de Phone Number [facility] [place] [address] * AFP tumor marker (04/21/2024 11:26 AM EDT) [facility] Alpha Fetoprotein <1.9 <=8.3 ng/mL [facility] Comment: This result was generated using a Monalisa Deisy immunoassay. ??Results obtained from other methods or manufacturers cannot be used interchangeably with this method. Blood 04/21/2024 11:2 6 AM EDT 04/21/2024 11:51 AM EDT Narrative Resulting Agency Comment Spec In Lab Chace Enriquez MD CHEMISTRY ORDERABLE S Performing Organization Address [facility] de Phone Number [facility] [place] [address] * Beta HCG, quantitative (04/21/2024 11:26 AM EDT) Beta Human Chorionic Gonadotropin, Quantitative <1 0 - 2 mlU/ML [facility] Comment: REFERENCE RANGES NON- FEMALE: ??Less than 5 mIU/mL POSTMENOPAUSAL FEMALE: ??Less than 8 mIU/mL ? -- FEMALES -- Weeks of ? HCG range ??(mIU/mL) ? 3 weeks ? 5.8 - 71.2 ? 4 weeks ? 9.5 - 750 ? 5 weeks ? 217 - 7,138 ? 6 weeks ? 158 - 31,795 ? 7 weeks ? 3,697 - 163,563 ? 8 weeks ? 32,065 - 149,571 ? 9 weeks ? 63,803 - 151,410 ?10 weeks ? 46,509 - 186,977 ?12 weeks ? 27,832 - 210,612 ?14 weeks ? 13,950 - 62,530 ?15 weeks ? 12,039 - 70,971 ?16 weeks ? 9,040 - 56,451 ?17 weeks ? 8,175 - 13,868 ?18 weeks ? 8,098 - 92,176 This result was generated using a Monalisa Deisy immunoassay. ??Results obtained from other methods or manufacturers cannot be used interchangeably with this method. Blood 04/21/2024 11:2 6 AM EDT 04/21/2024 11:51 AM EDT Narrative Resulting Agency Comment Spec In Lab Chace Enriquez MD CHEMISTRY ORDERABLE S Performing Organization Address [facility] de Phone Number [facility] [place] [address] * TSH (04/21/2024 11:26 AM EDT) Thyroid Stimulating Hormone 1.94 0.27 - 4.20 mcIU/mL [facility] Comment: Reference Interval (mcIU/mL): Females: ??First Trimester: 0.23-3.88 ??Second Trimester: 0.22-3.90 ??Third Trimester: 0.44-4.66 Blood 04/21/2024 11:2 6 AM EDT 04/21/2024 11:51 AM EDT Narrative Resulting Agency Comment Spec In Lab Chace Enriquez MD CHEMISTRY ORDERABLE S Performing Organization Address [facility] de Phone Number [facility] [place] [address] * Lactate Dehydrogenase (04/21/2024 11:26 AM EDT) Lactate Dehydrogenase 185 110 - 220 unit/L [facility] Blood 04/21/2024 11:2 6 AM EDT 04/21/2024 11:51 AM EDT Narrative Resulting Agency Comment Spec In Lab Chace Enriquez MD CHEMISTRY ORDERABLE S [facility] [place] [address] * (ABNORMAL) Comprehensive metabolic panel (non-fasting) (04/21/2024 11:26 AM EDT) Glucose 94 65 - 199 mg/dL [facility] Comment:Diabetes: >=200 mg/d L plus symptoms Blood Urea Nitrogen 17 10 - 20 mg/dL [facility] Creatinine 1.02 0.80 - 1.50 mg/dL [facility] Sodium 142 135 - 145 mmol/L [facility] Potassium 4.7 3.5 - 5.0 mmol/L [facility] Comment: Please note: ??Patients with WBC >100,000 may have falsely elevated Potassium levels. ??For accurate Potassium quantification in these patients send serum separator tube (gold top) for subsequent determinations. ??Contact the Clinical Chemistry Laboratory if there are any questions. Chloride 105 98 - 107 mmol/L [facility] Carbon Dioxide 24 22 - 31 mmol/L [facility] Anion Gap 13 5 - 15 mmol/L [facility] Calcium 9.7 8.5 - 10.5 mg/dL [facility] Protein, Total 7.2 6.1 - 8.0 g/dL [facility] Albumin 4.1 3.2 - 5.2 g/dL [facility] Aspartate Aminotransferase 22 0 - 39 unit/L [facility] Alanine Aminotransferase 31 0 - 55 unit/L [facility] Alkaline Phosphatase 132(H) 40 - 130 unit/L [facility] Bilirubin, Total 0.7 0.2 - 1.3 mg/dL [facility] Est Glomerular Filtration Rate 85 >=60 mL/min/1. 73 m?? [facility] Comment: This patient's estimated GFR was calculated using the 2020 CKD-EPI equation. The estimated GFR can vary from the measured GFR by up to 30% in the absence of rapidly changing kidney function. Assessment of the estimated GFR is not appropriate when creatinine concentrations are rapidly changing. For clinical situations in which a more precise estimate of GFR is necessary, consider alternative methods of GFR estimation such as a 24-hour urine creatinine clearance. Assignment of CKD stage 1-5 for patients with an eGFR near the transition point between stages may be based on clinical assessment of muscle mass and symptoms in addition to eGFR. Blood 04/21/2024 11:2 6 AM EDT 04/21/2024 11:51 AM EDT Narrative Resulting Agency Comment Spec In Lab Chace Enriquez MD CHEMISTRY ORDERABLE S Performing Organization Address [facility] Co de Phone Number [facility] [place] [address] * EKG 12 Lead (04/21/2024 10:24 AM EDT) Ventricular rate 74 BPM MUSE SYSTEM Atrial Rate 74 BPM MUSE SYSTEM P-R Interval 176 ms MUSE SYSTEM QRS Duration 108 ms MUSE SYSTEM Q-T Interval 400 ms MUSE SYSTEM QTC Calculated (Bezet) 444 ms MUSE SYSTEM Calculated P Nettie 58 degrees MUSE SYSTEM Calculated R Nettie 10 degrees MUSE SYSTEM Calculated T Nettie 29 degrees MUSE SYSTEM INTERPRETATION Normal sinus rhythm Normal ECG No previous ECGs available Confirmed by MD BHARATH, FABIAN ([id number]) on 04/21/2024 10:27:08 PM MUSE SYSTEM 04/21/2024 10:2 4 AM EDT 04/21/2024 10:27 PM EDT Unknown ECG ORDERABLES Performing Organization Address City/[facility]/ZIP Co de Phone Number MUSE SYSTEM * COLONOSCOPY (08/31/2020 10:08 AM EDT) COLONOSCOPY [facility] Procedure Date: 08/31/2020 10:08 AM ? Patient Name: Joe Garcia ? Date of : 1965 ? Age: 55 ? Order #: [id number] ? Instrument Name: [id number] ? Procedure: ? Colonoscopy Indications: ? Abdominal pain Providers: ? Perez Rubalcava MD, Carol ? Chsaidy Ortega, ? Census Enumerator Referring MD: ?Mohosagezakiya Valerio Corey Medicines: ? Monitored Anesthesia Care Complications: ? No immediate complications. Procedure: ? Pre-Anesthesia Assessment: ? - Prior to the procedure, a History ? and Physical was performed, and ? patient medications and allergies ? were reviewed. The patient is ? competent. The risks and benefits of ? the procedure and the sedation ? options and risks were discussed with ? the patient. All questions were ? answered and informed consent was ? obtained. Patient identification and ? proposed procedure were verified by ? the physician in the pre-procedure ? area. Mental Status Examination: ? alert and oriented. Airway ? Examination: normal oropharyngeal ? airway and neck mobility. Respiratory ? Examination: clear to auscultation. ? CV Examination: normal. Prophylactic ? Antibiotics: The patient does not ? require prophylactic antibiotics. ? Prior Anticoagulants: The patient has ? taken no previous anticoagulant or ? antiplatelet agents. ASA Grade ? Assessment: III - A patient with ? severe systemic disease. After ? reviewing the risks and benefits, the ? patient was deemed in satisfactory ? condition to undergo the procedure. ? The anesthesia plan was to use ? monitored anesthesia care (MAC). ? Immediately prior to administration ? of medications, the patient was ? re-assessed for adequacy to receive ? sedatives. The heart rate, ? respiratory rate, oxygen saturations, ? blood pressure, adequacy of pulmonary ? ventilation, and response to care ? were monitored throughout the ? procedure. The physical status of the ? patient was re-assessed after the ? procedure. ? The procedure, indications, benefits, ? risks and alternatives were explained ? to the patient. Specifically ? discussed were potential ? complications including, but not ? limited to, bleeding, perforation, ? infection, missing a cancer, and ? adverse medication reactions. The ? patient was placed in the left ? lateral decubitus position, and a ? digital rectal exam was performed. ? The Colonoscope was inserted in the ? anus and under direct visualization, ? advanced to the terminal ileum. ? Careful inspection was made as the ? colonoscope was withdrawn. The ? colonoscopy was performed without ? difficulty. The patient tolerated the ? procedure well. The quality of the ? bowel preparation was good. ? Findings: ? The perianal and digital rectal examinations were ? normal. ? A 5 mm polyp was found in the sigmoid colon. The ? polyp was sessile. The polyp was removed with a cold ? snare. Resection and retrieval were complete. ? The terminal ileum appeared normal. Biopsies for ? histology were taken with a cold forceps from the ? entire colon for evaluation of microscopic colitis. ? Withdrawal time 10 minutes. ? Moderate Sedation: ? Not applicable - See Anesthesia documentation Impression: ?- One 5 mm polyp in the sigmoid ? colon, removed with a cold snare. ? Resected and retrieved. ? - The examined portion of the ileum ? was normal. Biopsied. Recommendation: ?- Await pathology results ? Procedure Code(s): ?? --- Professional --- ? 49378, Colonoscopy, flexible; with ? removal of tumor(s), polyp(s), or ? other lesion(s) by snare technique ? 02662, 59, Colonoscopy, flexible; ? with biopsy, single or multiple ? --- Technical --- ? 76157, Colonoscopy, flexible; with ? removal of tumor(s), polyp(s), or ? other lesion(s) by snare technique ? 72860, 59, Colonoscopy, flexible; ? with biopsy, single or multiple CPT copyright 2019 [employer]. All rights reserved. The codes documented in this report are preliminary and upon shoe designer review may be revised to meet current compliance requirements. Attending Participation: ? I personally performed the entire procedure. ? ___ Perez Rubalcava MD 08/31/2020 11:01:10 AM This report has been signed electronically. Number of Addenda: 0 Note Initiated On: 08/31/2020 10:08 AM PROVATION 08/31/2020 10:0 8 AM EDT Estefani Nicole MD GENERAL SURGICAL ORDERABLES PROVATION from Last 3 Months or Most Recently Relevant to Health Maintenance Advance Directives * Attempt Cardiopulmonary Resuscitation - Inpatient (Latest Code Status on File) Date Activated Date Inactivated Comments 05/06/2024 5:53 PM 05/07/2024 12:10 PM Question Answer Comments Code Status decision made by: Patient * Attempt Cardiopulmonary Resuscitation - Inpatient Date Activated Date Inactivated Comments 05/06/2024 1:25 PM 05/06/2024 5:53 PM Question Answer Comments Code Status decision made by: Patient Care Teams Crew Trainer Relationship Specialty Start Date End Date Kenia Devine MD [facility] [place] [address] PCP - General Family Medicine 06/02/22
--- OUTSIDE RECORDS SUMMARY | 2024-07-07 11:43 | XMS_ITS | Encounter Summary ---
Author Organization [facility] [place] [address] Care Team Providers Care Assistant Department Manager Name Role Phone Kenia Devine MD Primary Care Provider [phone] Encounter Details Date Type Department Care Team (Late st Contact Info) Description 04/22/2024 Telephone [place] [phone] Dacia Blackwell Social History Tobacco Use Types Packs/Day Years Used Date Smoking Tobacco: Never Smokeless Tobacco: Never Alcohol Use Standard Drinks/Week Comments Not Currently 0 (1 standard drink = 0.6 oz pur e alcohol) Sex and Gender Information Value Date Recorded Sex Assigned at Not on file Gender Identity Not on file Sexual Orientation Not on file documented as of this encounter Miscellaneous Notes * Telephone Encounter - Dacia Blackwell - 04/22/2024 9:23 AM EDT Pft order have been faxed to [facility] documented in this encounter Plan of Treatment Not on file documented as of this encounter Visit Diagnoses Not on filedocumented in this encounter Care Teams Assistant Department Manager Relationship Specialty Start Date End Date Kenia Devine MD [address] [place] [address] [place] [address] PCP - General Family Medicine 06/02/22 documented as of this encounter
--- OUTSIDE RECORDS SUMMARY | 2024-07-07 11:43 | XMS_ITS | Encounter Summary ---
Author Organization [facility] [place] [address] Care Team Providers Care Instructional Coach Name Role Phone Kenia Devine MD Primary Care Provider [phone] Encounter Details Date Type Department Care Team (Late st Contact Info) Description 04/06/2024 Telephone [place] [phone] Salvador Blair Social History Tobacco Use Types Packs/Day Years [...] encounter Miscellaneous Notes * Telephone Encounter - Salvador Blair - 04/06/2024 4:48 PM EDT Call made, message left requesting return call. Dr. Enriquez has been delayed and will not be available on 04/07/24. Please assist in rescheduling. documented in this encounter Plan of Treatment Not on file documented as of this encounter Visit Diagnoses Not on filedocumented in this encounter Care Teams Instructional Coach Relationship Specialty Start Date End Date Kenia Devine MD [address] [place] [address] JASON BURDICK [address] PCP - General Family Medicine 06/02/22 documented as of this encounter
--- OUTSIDE RECORDS SUMMARY | 2024-07-07 11:43 | XMS_ITS | Encounter Summary ---
[place] [address] Care Team Providers Care Molder Name Role Phone Kenia Devine MD Primary Care Provider [phone] Encounter Details Date Type Department Care Team (Late st Contact Info) Description 03/09/2024 Ancillary Procedure [place] [address] Kenia Devine MD [address] [place] [address] Social History Tobacco Use Types Packs/Day Years [...] Procedure Name Priority Date/Time Associated Diagnosis Comments FILM LIBRARY STORAGE ONLY CT CHEST Routine 03/09/2024 12:00 AM EDT documented in this encounter Results * Film Library- Storage Only CT Chest (03/09/2024 12:00 AM EDT) Narrative [facility] - 03/11/2024 12:26 PM EDT This exam is auto-finalizing. It's purpose is for storage only. Kenia Devine MD IMG FILM LIBRARY OR DERABLES [place], [place] documented in this encounter Visit Diagnoses Not on filedocumented in this encounter Care Teams Molder Relationship Specialty Start Date End Date Kenia Devine MD [address] [place] [address] [place] [address] PCP - General Family Medicine 06/02/22 documented as of this encounter
--- OUTSIDE RECORDS SUMMARY | 2024-07-07 11:43 | XMS_ITS | Encounter Summary ---
Author Organization [facility] [place] [address] Care Team Providers Care Cigar Head Perforator Name Role Phone Kenia Devine MD Primary Care Provider [phone] Encounter Details Date Type Department Care Team (Late st Contact Info) Description 04/26/2024 Telephone [place] [phone] Meghan Victoria, RN Social History Tobacco Use [...] Telephone Encounter - Meghan Victoria, RN - 04/26/2024 9:28 AM EDT Left a message for a call back to update on lab results documented in this encounter Plan of Treatment Not on file documented as of this encounter Visit Diagnoses Not on filedocumented in this encounter Care Teams Cigar Head Perforator Relationship Specialty Start Date End Date Kenia Devine MD [address] [place] [address] [place] [address] PCP - General Family Medicine 06/02/22 documented as of this encounter
--- OUTSIDE RECORDS SUMMARY | 2024-07-07 11:43 | XMS_ITS | Encounter Summary ---
Author Organization [facility] [place] [address] Care Team Providers Care Nurse Outreach Case Manager Name Role Phone Senthil Mitchell MD Primary Care Provider + Encounter Details Date Type Department Care Team (Late st Contact Info) Description 01/31/2022 Orders Only Gastroenterology at [facility] [place] [address] Maria Del Carmen Lutz, OUTSIDE SALESPERSON [address] [place] [address] Social History Tobacco Use Types Packs/Day Years [...] on filedocumented in this encounter Care Teams Nurse Outreach Case Manager Relationship Specialty Start Date End Date Senthil Mitchell MD [address] [place] [address] [place] [address] PCP - General Family Medicine 12/23/21 06/01/22 documented as of this encounter
--- OUTSIDE RECORDS SUMMARY | 2024-07-07 11:43 | XMS_ITS | Encounter Summary ---
[place] [address] Care Team Providers Care Typewriter Repairer Name Role Phone Estefani Nicole MD Primary Care Provider + Reason for Referral * Diagnostic Test (Routine) - Closed Specialty Diagnoses / Procedures Referred By Dasia phelps Referred To Contact Radiology Diagnoses Cyclical vomiting without status migrainosus, not intractable Nausea and vomiting, intractability of vomiting not specified, unspecified vomiting type Nonintractable headache, unspecified chronicity pattern, unspecified headache type Procedures MRI Brain wwo Contrast (Generic) Mari aDel Carmen Lutz TALENT ACQUISITION RELATIONSHIP MANAGER [address] [place] [address] [place] [address] Referral ID Status Reason Start Date Expiration Date V isits Requested Visits Authorized [id number] Closed Specialty Service Requested 10/30/2020 04/30/2022 1 1 Reason for Visit * Diagnostic Test (Routine) - Closed Specialty Diagnoses / Procedures Referred By Dasia phelps Referred To Contact Radiology Diagnoses Cyclical vomiting without status migrainosus, not intractable Nausea and vomiting, intractability of vomiting not specified, unspecified vomiting type Nonintractable headache, unspecified chronicity pattern, unspecified headache type Procedures MRI Brain wwo Contrast (Generic) Maria Del Carmen Lutz, TALENT ACQUISITION RELATIONSHIP MANAGER [address] [address] [place] [address] Referral ID Status Reason Start Date Expiration Date V isits Requested Visits Authorized [id number] Closed Specialty Service Requested 10/30/2020 04/30/2022 1 1 Encounter Details Date Type Department Care Team (Latest Contact Info) Description 01/09/2021 7:55 AM EST - 01/09/2021 11:35 AM EST Hospital Encounter MRI at [facility] [place] [address] Maria Del Carmen Lutz, TALENT ACQUISITION RELATIONSHIP MANAGER [address] [address] Cyclical vomiting without status migrainosus, not intractable; Nausea and vomiting, intractability of vomiting not specified, unspecified vomiting type; Nonintractable headache, unspecified chronicity pattern, unspecified headache type Discharge Disposition: Home Social History Tobacco Use [...] Sig Dispensed Refills Start Date End Date amitriptyline (Elavil) 10 mg Tablet Take 10 [...] Tablet Take 10 mg by mouth nightly. sertraline (ZOLOFT) 100 mg Tablet 50 mg. 0 04/14/2018 01/21/2022 documented as of this encounter Plan of Treatment Not on file documented as of this encounter Procedures Procedure Name Priority Date/Time Associated Diagnosis Comments MRI BRAIN WWO CONTRAST (GENERIC) Routine 01/09/2021 9:35 AM EST Cyclical vomiting without status migrainosus, not intractable Nausea and vomiting, intractability of vomiting not specified, unspecified vomiting type Nonintractable headache, unspecified chronicity pattern, unspecified headache type documented in this encounter Results * MRI Brain wwo Contrast (Generic) (01/09/2021 9:35 AM EST) Anatomical Region Laterality Modality Head Magnetic Resonan ce Impressions 01/09/2021 9:50 AM EST Incidental small arachnoid cysts at the anterior right middle cranial fossa, and adjacent to the anterior right falx without substantial mass effect. Otherwise normal brain MRI. Thank you for letting us participate in the care of this patient. For questions regarding this report, please contact the number below. ? 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 COMPARISON: None FINDINGS: The ventricles are normal in size and contour. There is no intracranial mass. There is probably a very small arachnoid cyst at the anterior right middle cranial fossa, and adjacent to the anterior falx on the right without substantial mass effect. There is no abnormal enhancement. Cerebral parenchyma is normal in signal intensity. There are no abnormal blood products on susceptibility weighted imaging. Diffusion images are normal. There is no abnormal enhancement. The major intracranial flow voids are normal. 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 COMPARISON: None FINDINGS: The ventricles are normal in size and contour. There is no intracranialmass. There is probably a very small arachnoid cyst at the anterior rightmiddle cranial fossa, and adjacent to the anterior falx on the right without substantial mass effect. There is no abnormal enhancement. Cerebralparenchyma is normal in signal intensity. There are no abnormal blood products on susceptibility weighted imaging. Diffusion images are normal. There isno abnormal enhancement. The major intracranial flow voids are normal. IMPRESSION Incidental small arachnoid cysts at the anterior right middle cranialfossa, and adjacent to the anterior right falx without substantial mass effect.Otherwise normal brain MRI. Thank you for letting us participate in the care of this patient. Forquestions regarding this report, please contact the number below. Electronically signed by: Nishant Baxter MD, [facility]([phone]), at 01/09/2021 9:50 AM Maria Del Carmen Lutz TALENT ACQUISITION RELATIONSHIP MANAGER IMG MRI ORDERABL ES documented in this encounter Visit Diagnoses Diagnosis Cyclical vomiting without status migrainosus, not intractable Variants of migraine, not elsewhere classified, without mention of intractable migraine without mention of status migrainosus Nausea and vomiting, intractability of vomiting not specified, unspecified vomiting type Nonintractable headache, unspecified chronicity pattern, unspecified headache type documented in this encounter Administered Medications Inactive Administered Medications - up to 3 most recent administrations Medication Order MAR Action Action Date Dose Rate Site gadoterate meglumine (Dotarem) (0.5 mMol/mL) injection solution 0-100 mL 0-100 mL, Intravenous, ONCE PRN, 1 dose, Starting on Thu01/09/21 at 0919, Until Thu01/09/21 at 0920, Per Protocol, Radiology Contrast, Routine Given 01/09/2021 9:20 AM EST 21 mLs documented in this encounter Care Teams Typewriter Repairer Relationship Specialty Start Date End Date Estefani Nicole MD [address] [place] [address] PCP - General Family Medicine 10/19/19 12/22/21 documented as of this encounter
--- OUTSIDE RECORDS SUMMARY | 2024-07-07 11:43 | XMS_ITS | Encounter Summary ---
[place] [address] Care Team Providers Care Debeaker Name Role Phone Senthil Mitchell MD Primary Care Provider + Reason for Referral * Allergy Testing (Routine) - Closed Specialty Diagnoses / Procedures Referred By Dasia phelps Referred To Contact Allergy Diagnoses Nausea and vomiting, intractability of vomiting not specified, unspecified vomiting type Maria Del Carmen Lutz APRN [address] [place] [address] [facility] [address] [place] [address] Referral ID Status Reason Start Date Expiration Date V isits Requested Visits Authorized [id number] Closed Consult, Test & Treat 02/04/2022 02/04/2023 1 1 Encounter Details Date Type Department Care Team (Late st Contact Info) Description 02/04/2022 Telephone [place] [address] Maria Del Carmen Lutz APRN [address] [place] [address] Social History Tobacco Use Types Packs/Day Years [...] encounter Miscellaneous Notes * Telephone Encounter - Maria Del Carmen Lutz APRN - 02/04/2022 11:46 AM EDT Called patient to review lab results, specifically in terms of C1 documented in this encounter Plan of Treatment Scheduled Referrals Name Type Priority Associated Diagnoses Orde r Schedule Referral to Allergy Outpatient Referral Routine Nausea and vomiting, intractability of vomiting not specified, unspecified vomiting type Ordered: 02/04/2022 documented as of this encounter Visit Diagnoses Diagnosis Nausea and vomiting, intractability of vomiting not specified, unspecified vomiting type documented in this encounter Care Teams Debeaker Relationship Specialty Start Date End Date Senthil Mitchell MD [address] [place] [address] PCP - General Family Medicine 12/23/21 06/01/22 documented as of this encounter
--- OUTSIDE RECORDS SUMMARY | 2024-07-07 11:43 | XMS_ITS | Encounter Summary ---
Author Organization [facility] [place] [address] Care Team Providers Care Exchange Specialist Name Role Phone Kenia Devine MD Primary Care Provider [phone] Encounter Details Date Type Department Care Team (Late st Contact Info) Description 07/01/2022 Telephone [place] [address] Chace Pete MD [facility] [place] [address] Social History Tobacco Use Types Packs/Day Years [...] encounter Miscellaneous Notes * Telephone Encounter - Chace Pete MD - 07/01/2022 10:05 AM EDT Images from the original note were not included. [facility] GA[facility]OENTEROLOGY [facility] CALL Name: Joe Garcia Date: 07/01/2022 Time: 10:05 AM Referring Location: [facility] Referring Provider: Loli Mead MD HPI: This gentleman follows in GI clinic for [facility]. He reportedly has been presenting to the ER with some frequency as of late. By report from Dr. Mead, he has not been keen to return to GI clinic here because he was frustrated about his lack of symptomatic improvement. Nonetheless, she requested that we reach out to him and try to schedule him on the sooner side given his progressive sxs andfrequent ER visits. I advised her that I would let his provider know about the concerns and try to have him seen as soon as we can. This is not an official consult, as my recommendations are limited by my inability to interview andexamine the patient as well as personally review the medical record, imaging, and laboratory findings. Chace Pete MD PGY-5, Gastroenterology documented in this encounter Plan of Treatment Not on file documented as of this encounter Visit Diagnoses Not on filedocumented in this encounter Care Teams Exchange Specialist Relationship Specialty Start Date End Date Kenia Devine MD [address] [place] [address] [place] [address] PCP - General Family Medicine 06/02/22 documented as of this encounter
--- OUTSIDE RECORDS SUMMARY | 2024-07-07 11:43 | XMS_ITS | Encounter Summary ---
Author Organization [facility] [place] [address] Care Team Providers Care Automotive Quality Manager Name Role Phone Senthil Mitchell MD Primary Care Provider + Encounter Details Date Type Department Care Team (Late st Contact Info) Description 02/17/2022 Telephone Gastroenterology at [facility] [place] [phone] Brittaney Colon RN Social History Tobacco Use Types Packs/Day [...] encounter Miscellaneous Notes * Telephone Encounter - Brittaney Colon RN - 02/18/2022 8:45 AM EDT Call returned to patient to advise no further additions to plan as outlined in 01/21/2022 note. * Telephone Encounter - Brittaney Colon RN - 02/17/2022 4:38 PM EDT Received call back from patient who clarifies that he is currently on amitriptyline. He was sick over the weekend and tried sumatriptan nasal spray for the first time. States it did not work for him. His current PCP (who is a temporary staffing physician) was not willing to prescribe the aprepitant, but Joe states that a new PCP has been hired and will be arriving later in the month. He hopesthat new PCP will consider prescribing. He asks if there is any further instruction or recommended trials? * Telephone Encounter - Brittaney Colon RN - 02/17/2022 3:40 PM EDT Received vmm from patient stating that he had trialed Amitriptyline but did not find it effective in managing his chronic nausea. He further stated his PCP was not comfortable prescribing the next medication. Call placed to patient to follow-up. [facility] requesting call back. documented in this encounter Plan of Treatment Not on file documented as of this encounter Visit Diagnoses Not on filedocumented in this encounter Care Teams Automotive Quality Manager Relationship Specialty Start Date End Date Senthil Mitchell MD [address] [place] [address] [place] [address] PCP - General Family Medicine 12/23/21 06/01/22 documented as of this encounter
--- OUTSIDE RECORDS SUMMARY | 2024-07-07 11:43 | XMS_ITS | Encounter Summary ---
Author Organization [facility] Address [facility] [place] [address] Care Team Providers Care Clinical Review Nurse Name Role Phone Senthil Mitchell MD Primary Care Provider + Encounter Details Date Type Department Care Team (Late st Contact Info) Description 02/25/2022 11:00 AM EDT Office Visit Neurosurgery at [facility] [place] [address] Julián Sawyer PA [facility] [address] Intracranial arachnoid cysts Social History Tobacco Use Types Packs/Day Years [...] Sign Reading Time Taken Comments Blood Pressure 128/83 02/25/2022 10:37 AM EDT Pulse 104 02/25/2022 10:37 AM EDT Temperature 36.7 ??C (98 ??F) 02/25/2022 10: 37 AM EDT Respiratory Rate 18 02/25/2022 10:3 7 AM EDT Oxygen Saturation 97% 02/25/2022 10: 37 AM EDT Inhaled Oxygen Concentration - - Weight 114.1 kg (251 lb 9.6 oz) 022 10:37 AM EDT Height 177.8 cm (5' 10) 02/25/2022 10: 37 AM EDT Body Mass Index 36.1 02/25/2022 10:37 AM EDT documented in this encounter Progress Notes * Julián Sawyer PA - 02/25/2022 11:00 AM EDT Name: Joe Garcia : 1965 PCP: Senthil Mitchell MD REF: Senthil Mitchell Date of Service: 02/25/2022 CHIEF COMPLAINT: Intracranial arachnoid cysts HISTORY: Joe Garcia presents in follow up for two small intracranial arachnoid cysts discovered incidentally last year on work up for cyclical vomiting He has no new neurologic symptoms or complaints to discuss. Denies significant h/o headaches, seizures, and focal neurologic deficits. He had a repeat MRI scan of the brain today for our review. PHYSICAL EXAM: BP 128/83 (BP Location (NBP): Right arm, Patient Position: Sitting, BP Cuff Sizes: Large Adult (32-43 cm)) Comment (BP Cuff Sizes): long cuff Pulse (!) 104 Temp 36.7 ??C (98 ??F) (Temporal) Resp 18 Ht 177.8 cm (5' 10) Wt 114.1 kg (251 lb 9.6 oz) SpO2 97% BMI 36.10 kg/m?? . Joe Garcia is a 56 y.o. male in no cardiorespiratory distress. Awake, alert, and oriented. Answers questions, follows commands, and converses appropriately. Speech clear and fluid. Good phonation. VFs full to confrontation. PERRLA. EOMI. Face symmetric. Tongue protrudes midline. Shoulder shrugstrong bilaterally. Normal muscle bulk and tone. No pronator drift. GARCIA well. No dysmetria with FTNbilaterally. No dysdiadochokinesia with finger tapping or HARITHA U&LEs. Gait is unremarkable. IMAGING & OTHER RESULTS: MRI brain wo contrast 02/25/2022 No change to the anterior right middle cranial fossa and right frontal falx adjacent arachnoid cysts. Possible smaller left middle cranial fossa cyst as well is unchanged compared to prior. ASSESSMENT: 56 yo M with two small incidental intracranial arachnoid cysts presenting for routine follow up with repeat imaging Stable clinical and radiologic course I reviewed the imaging findings with Mr. Garcia. The intracranial cysts have an appearance most consistent with simple arachnoid cysts. These are benign lesion, often incidentally discovered and rarely develop into symptomatic lesions. There has been no change to the cysts over the course of a year comparing today's MRI to the one last year. I do not believe additional routine surveillance is neces jose j at this point and we can follow up on an as needed basis in the future. Mr. Garcia knows he is welcome to get in touch with us should any questions or concerns arise. PLAN: Follow up prn Julián Sawyer PA-C, MS Physician Analytical Scientist Section [place] [id number] documented in this encounter Plan of Treatment Not on file documented as of this encounter Visit Diagnoses Diagnosis Intracranial arachnoid cysts Cerebral cysts documented in this encounter Care Teams Clinical Review Nurse Relationship Specialty Start Date End Date Senthil Mitchell MD [address] [place] [address] [place] [address] PCP - General Family Medicine 12/23/21 06/01/22 documented as of this encounter
--- OUTSIDE RECORDS SUMMARY | 2024-07-07 11:43 | XMS_ITS | Encounter Summary ---
Author Organization [facility] [place] [address] Care Team Providers Care Report Checker Name Role Phone Estefani Nicole MD Primary Care Provider + Encounter Details Date Type Department Care Team ([facility] st Contact Info) Description 01/22/2021 Telephone [place] [address] Joanne Rodrigues Social History Tobacco Use Types Packs/Day Years [...] encounter Miscellaneous Notes * Telephone Encounter - Joanne Rodrigues - 01/24/2021 3:31 PM EST Scheduled for 04/23/21 * Telephone Encounter - Joanne Rodrigues - 01/22/2021 2:53 PM EST Left message for patient to contact the office for scheduling. JESSICA Lutz would like the patientscheduled for a gif with her in April. documented in this encounter Plan of Treatment Not on file documented as of this encounter Visit Diagnoses Not on filedocumented in this encounter Care Teams Report Checker Relationship Specialty Start Date End Date Estefani Nicole MD [address] [place] [address] PCP - General Family Medicine 10/19/19 12/22/21 documented as of this encounter
--- OUTSIDE RECORDS SUMMARY | 2024-07-07 11:43 | XMS_ITS | Encounter Summary ---
[place] [address] Care Team Providers Care Complaint Evaluation Supervisor Name Role Phone Estefani Nicole MD Primary Care Provider + Reason for Referral * Diagnostic Test (Routine) - Closed Specialty Diagnoses / Procedures Referred By Dasia phelps Referred To Contact Radiology Diagnoses Intracranial arachnoid cysts Procedures MRI Brain [place] [place] [address] [facility] [place] [address] Referral ID Status Reason Start Date Expiration Date V isits Requested Visits Authorized [id number] Closed Specialty Service Requested 02/18/2022 08/17/2022 1 1 Reason for Visit * Consultation (Routine) - Closed Specialty Diagnoses / Procedures Referred By Dasia phelps Referred To Contact Neurosurgery Diagnoses Cerebral cysts Arachnoid cyst Estefani Niocle MD [facility] [place] [place] [address] [facility] Neurosurgery [address] [place] [phone] Referral ID Status Reason Start Date Expiration Date V isits Requested Visits Authorized [id number] Closed Consult, Test & Treat Connection [facility] PCP Updated and/or Approved 01/24/2021 01/24/2022 6 6 Encounter Details Date Type Department Care Team (Latest Contact Info) Description 02/12/2021 1:45 PM EDT TH Visit (TeleHealth) Neurosurgery at [facility] [place] [address] Julián Sawyer PA [facility] [address] Intracranial arachnoid cysts Social History Tobacco Use [...] as of this encounter Progress Notes * Julián Sawyer PA - 02/12/2021 1:45 PM EDT Images from the original note were not included. Section of Neurosurgery Initial Consultation Note - Telephone Office Visit 02/12/2021 Estefani Nicole MD [address] [place] [address] [place] [address] RE: Joe Garcia : [address] Nicole: Thank you for referring your patient Joe Garcia to the Neurosurgery Clinic at [facility] for evaluation of two small intracranial arachnoid cysts discovered incidentally on work up for cyclical vomiting. As you know, Mr. Garcia is a pleasant 55 yo M with emesis of unknown etiology x5 years who underwenta MRI scan of the brain w/wo contrast on 01/09/21 to rule out any DIGITAL COMMUNITY MANAGER causes. This demonstrated two small incidental arachnoid cysts - one in the anterior right middle cranial fossa and the other in the right frontal parafalcine region. These are not associated with any parenchymal edema or substantial mass effect. Mr. Garcia reports never having had other cranial imaging for comparison. He denies significant headaches, seizures, and focal or lateralizing neurologic symptoms. I personally reviewed the patient's MRI scan and discussed the results with Mr. Garcia. I explained that these are benign intracranial cysts and represent an incidental finding, not related to his presenting complaint of emesis. There is no need for neurosurgical intervention at this time. A single follow up study is adequate to rule out change. Recommend MRI in 6-12 months; sooner on an as neededbasis. PAST MEDICAL HISTORY: Obesity Depression Insomnia HTN Asthma GERD Tremor PAST SURGICAL HISTORY: Past Surgical History: Procedure Laterality Date ??? PRO COLONOSCOPY, REMV LESN, SNARE N/A 08/31/2020 COLONOSCOPY, POLYPECTOMY, REMOVAL LESION BY SNARE (WRVU 4.67) performed by Perez Rubalcava MD at [facility] [place] [facility]COPY ??? PRO ENDOSCOPIC US EXAM, ESOPH N/A 01/09/2021 UPPER EUS- ENDOSCOPIC ULTRASOUND performed by Zhen Carnes MD at [facility] [place] [facility] ??? PRO UPPER GI ENDOSCOPY, BIOPSY N/A 08/31/2020 EGD WITH BIOPSY (WRVU 2.49) performed by Perez Rubalcava MD at [facility] [place] [facility] SOCIAL HISTORY: Social History Tobacco Use ??? Smoking status: Never Smoker ??? Smokeless tobacco: Never Used Substance Use Topics ??? Alcohol use: Not Currently ??? Drug use: Not Currently FAMILY HISTORY: No family history on file. CURRENT MEDICATIONS: ??? amitriptyline (Elavil) 10 mg Tablet ??? prochlorperazine (Compazine) 25 mg Suppository ??? budesonide-formoteroL (SYMBICORT) 80-4.5 mcg/actuation HFA Aerosol Inhaler ??? prochlorperazine (Compazine) 10 mg Tablet ??? ondansetron (Zofran) 4 mg Tablet ??? omeprazole (PriLOSEC) 20 mg Capsule, Delayed Release(E.C.) ??? buPROPion (WELLBUTRIN XL) 150 mg Tablet Extended Release 24 hr ??? mirtazapine (REMERON) 15 mg Tablet ??? risperiDONE (RISPERDAL) 1 mg Tablet ??? sertraline (ZOLOFT) 100 mg Tablet ??? PROAIR HFA 90 mcg/actuation HFA Aerosol Inhaler ??? EPINEPHrine (ADRENALIN) 0.1 mg/mL (1:10,000) Syringe ??? melatonin 5 mg Tablet ALLERGIES: Allergies Allergen Reactions ? ? Dust & Pollen Filter Mask [Facial Mask] Other (See Comments) rhinositis ??? Fish Containing Products Nausea And Vomiting ??? Peanut Anaphylaxis ??? Shellfish Containing Products Nausea And Vomiting ??? Vicodin [Hydrocodone-Acetaminophen] Other (See Comments) Throat gets itchy REVIEW OF SYSTEMS: GI: per HPI Neuro: per HPI PHYSICAL EXAMINATION: Telephone. Converses appropriately without evidence of aphasia. Speech clear and fluid. RADIOGRAPHIC STUDIES: Per HPI It was my pleasure to have consulted with Mr. Garcia today. I will be sure to keep you updated afterMr. Garcia returns here for further follow-up. Thank you again for your referral. Please don't hesitate to contact me if you have any further questions. Patient verbally consents to this telephone visit and understands that this visit may be billed, similar to a clinic office visit. I provided care to the patient today via telephone call. The total time associated with this visit was 10 minutes. Sincerely, Julián Sawyer PA-C, MS Physician Nuclear Medicine Medical Director [facility] Department of Neurosurgery [address] [place] [address] CC: Estefani Nicole MD CC: Estefani Nicole MD [address] [place] [phone] This message is confidential, intended only for the named recipient(s) and may contain information that is privileged or exempt from disclosure under applicable law. If you are not the intended recipient(s), you are notified that the dissemination, distribution or copying of this information is strictly prohibited. If you received this message in error, please notify the sender then delete this message. documented in this encounter Plan of Treatment Not on file documented as of this encounter Results * MRI Brain wo Contrast (02/25/2022 10:09 AM EDT) Anatomical Region Laterality Modality Head Magnetic Resonan ce Impressions 02/25/2022 12:48 PM EDT Stable cerebral atrophy. Stable appearance of right middle cranial fossa and right parafalcine anterior cranial fossa arachnoid cyst. Thank you for letting us participate in the care of this patient. ??If you are a health care provider and have any questions regarding this report, please contact the number below. ??For patients who have questions please contact the health wound care rn that requested your imaging first. ? Electronically signed by: Chace Morse MD, [facility] ([phone]), at 02/25/2022 12:48 PM Narrative 02/25/2022 12:48 PM EDT EXAMINATION: MRI BRAIN WO CONTRAST CLINICAL HISTORY: Cerebral cyst arachnoid cysts, follow up, eval for change TECHNIQUE: MRI of the brain performed without intravenous contrast administration. COMPARISON: MR the brain 01/09/2021 FINDINGS: There is no significant change in the right middle cranial fossa arachnoid cyst. No significant change in appearance of the anterior cranial fossa False seen right sided arachnoid cyst. The brain otherwise shows no restricted diffusion, and no signal abnormalities on T1, FLAIR or T2-weighted images. Mild atrophy is noted. This is unchanged. The calvarium orbits and skull base appear normal. Major vascular structures appear normal. Procedure Note Chace Morse MD - 02/25/2022 EXAMINATION: MRI BRAIN WO CONTRAST CLINICAL HISTORY: Cerebral cyst arachnoid cysts, follow up, eval for change TECHNIQUE: MRI of the brain performed without intravenous contrast administration. COMPARISON: MR the brain 01/09/2021 FINDINGS: There is no significant change in the right middle cranial fossa arachnoidcyst. No significant change in appearance of the anterior cranial fossa False seen right sided arachnoid cyst. The brain otherwise shows no restricted diffusion, and no signalabnormalities on T1, FLAIR or T2-weighted images. Mild atrophy is noted. This isunchanged. The calvarium orbits and skull base appear normal. Major vascular structures appear normal. IMPRESSION Stable cerebral atrophy. Stable appearance of right middle cranial fossa and right parafalcineanterior cranial fossa arachnoid cyst. Thank you for letting us participate in the care of this patient. If youare a health care provider and have any questions regarding this report,please contact the number below. For patients who have questions please contactthe health wound care rn that requested your imaging first. Electronically signed by: Chace Morse MD, [facility]([phone]), at 02/25/2022 12:48 PM William Louis MD IMG MRI ORDERABLES documented in this encounter Visit Diagnoses Diagnosis Intracranial arachnoid cysts Cerebral cysts Intracranial arachnoid cysts Cerebral cysts documented in this encounter Care Teams Complaint Evaluation Supervisor Relationship Specialty Start Date End Date Estefani Nicole MD [address] [place] [address] PCP - General Family Medicine 10/19/19 12/22/21 documented as of this encounter
--- OUTSIDE RECORDS SUMMARY | 2024-07-07 11:43 | XMS_ITS | Encounter Summary ---
Author Organization [facility] [place] [address] Care Team Providers Care Textile Colorist Formulator Name Role Phone Senthil Mitchell MD Primary Care Provider + Encounter Details Date Type Department Care Team (Late st Contact Info) Description 01/06/2022 Telephone Gastroenterology at [facility] [place] [address] Joanne Rodrigues Social History Tobacco Use Types [...] * Telephone Encounter - Joanne Rodrigues - 01/09/2022 9:26 AM EST Scheduled for 01/21/22 * Telephone Encounter - Joanne Rodrigues - 01/06/2022 11:20 AM EST Left message for patient to contact the office to move up an appointment he has scheduled with JESSICA Lutz at the request of Dr Mishra. documented in this encounter Plan of Treatment Not on file documented as of this encounter Visit Diagnoses Not on filedocumented in this encounter Care Teams Textile Colorist Formulator Relationship Specialty Start Date End Date Senthil Mitchell MD [address] [place] [address] [place] [address] PCP - General Family Medicine 12/23/21 06/01/22 documented as of this encounter
--- OUTSIDE RECORDS SUMMARY | 2024-07-07 11:43 | XMS_ITS | Encounter Summary ---
Author Organization [facility] [place] [address] Care Team Providers Care Manager Pathology Name Role Phone Senthil Mitchell MD Primary Care Provider + Encounter Details Date Type Department Care Team (Latest Contact Info) Description 01/21/2022 1:00 PM EST Office [place] [address] Maria Del Carmen Lutz, PSYCHOMETRICIAN [address] [place] [address] Cyclic vomiting syndrome; Nausea and vomiting, intractability of vomiting not specified, unspecified vomiting type Social History Tobacco Use Types Packs/Day Years [...] Sign Reading Time Taken Comments Blood Pressure 134/87 01/21/2022 12:52 PM EST Pulse 120 01/21/2022 12:52 PM EST Temperature - - Respiratory Rate - - Oxygen Saturation - - Inhaled Oxygen Concentration - - Weight 113.2 kg (249 lb 8 oz) 01/21/2022 12:52 P M EST Height - - Body Mass Index 35.8 12/23/2021 11:31 AM EST documented in this encounter Patient Instructions * Patient Instructions* Maria Del Carmen Lutz, STACY - 01/21/2022 1:12 PM EST Consider titrating amitriptyline up to 25mg at bedtime 2. Consider sumatriptan nasal spray as abortive therapy 3. Consider aprepitant 80mg daily and may increase to 125mg daily 4. Checking C1 enterase levels today documented in this encounter Progress Notes * Maria Del Carmen Lutz APRN - 01/21/2022 1:00 PM EST GASTROENTEROLOGY TELEMEDICINE PROGRAM - ESTABLISHED PATIENT VISIT Chief Complaint: Joe Garcia is a 56 y[address] of Dr. Damon here for follow-up of [facility] Detailed history: Joe Garcia is a 56 y.o. male with a history significant for depression/anxiety (managed by Dr. [facility] in [place]), and asthma. He was initially seen by me in 06/03/18 following a several year history of nausea with vomiting. He subsequently underwent a EGD at [facility] showing concern for pyloric stenosis. Dilitation was done. During our appointment on 12/06/19 he had persistent vomiting episodes prior to the EGD. I recommended a repeat EGD. During his appointment on 06/29/2020, he endorsed a recent EGD at [facility]. He continued to have vomiting every day and had been to the emergency room 3 times the week before our appointment. He continued to have abdominal pain and cramping. He continued to take Advil several times a month. I recommended blood work, MRCP, EGD and colonoscopy, and a smart pill. During our appointment on 10/30/2020, he continued to have cyclic vomiting episodes. He continues to take Advil for headache management. Recommendations included MRI of brain and endoscopic ultrasound. I recommended medication management regimen to be considered by PCP. During our appointment on 04/23/2021, he continued to have 2-3 episodes of nausea per week, but had not vomited in over approximately 1 month. Recommendations included referral to headache clinic for further evaluation and management of cyclic vomiting syndrome, following up with PCP to discuss polypharmacy, and considering medication management with Topamax or aprepitant. Interval history: Continues to have symptoms. Vomiting for five days last week. Continues to go to the ER. Will typically move bowels prior to vomiting episodes. Currently experiencing three vomitingepisodes per week. Recently got a new PCP. Continues to have migraines. Denies association between the migraines and headaches. Has been working with neurology. It's about time for my yearly check up. Review of systems: 14-point review of systems reviewed and negative except as above. Medications: Outpatient Medications Prior to Visit Medication Sig Dispense Refill ??? baclofen (Lioresal) 10 mg Tablet TAKE ONE TABLET BY MOUTH THREE TIMES A DAY NEEDED FOR 4 DAYS ??? cyclobenzaprine (Flexeril) 10 mg Tablet TAKE ONE TABLET BY MOUTH THREE TIMES A DAY NEEDED ??? doxycycline (VIBRAMYCIN) 100 mg Capsule TAKE ONE CAPSULE BY MOUTH TWICE A DAY FOR 10 DAYS ??? escitalopram (Lexapro) 10 mg Tablet TAKE ONE TABLET BY MOUTH EVERY DAY IN THE MORNING ??? nabumetone (Relafen) 500 mg Tablet TAKE ONE TABLET BY MOUTH TWICE A DAY NEEDED ??? ondansetron ODT (Zofran-ODT) 4 mg Tablet, Rapid Dissolve DISSOLVE ONE TABLET ON TONGUE EVERY 6 HOURS NEEDED ??? tamsulosin (Flomax) 0.4 mg Capsule TAKE ONE CAPSULE BY MOUTH EVERY DAY ??? amitriptyline (Elavil) 10 mg Tablet Take 10 mg by mouth nightly. ??? prochlorperazine (Compazine) [address] 25 mg rectally every 12 hours as needed for Nausea. ??? budesonide-formoteroL (SYMBICORT) 80-4.5 mcg/actuation HFA Aerosol Inhaler Inhale into the lungs as needed. ??? prochlorperazine (Compazine) 10 mg Tablet Take 10 mg by mouth as needed for Nausea. ??? ondansetron (Zofran) 4 mg Tablet Take 4 mg by mouth as needed for Nausea. ??? omeprazole (PriLOSEC) 20 mg Capsule, Delayed Release(E.C.) Take 40 mg by mouth daily. ??? buPROPion (WELLBUTRIN XL) 150 mg Tablet Extended Release 24 hr 0 ??? mirtazapine (REMERON) 15 mg Tablet 30 mg. 0 ??? risperiDONE (RISPERDAL) 1 mg Tablet 0 ??? sertraline (ZOLOFT) 100 mg Tablet 50 mg. 0 ??? PROAIR HFA 90 mcg/actuation HFA Aerosol Inhaler INHALE 2 PUFFS EVERY 4 HOURS 0 ??? EPINEPHrine (ADRENALIN) 0.1 mg/mL (1:10,000) Syringe Inject as directed. ??? melatonin 5 mg Tablet Take 10 mg by mouth nightly. No facility-administered medications prior to visit. Allergies: is allergic to dust & pollen filter mask [facial mask], fish containing products, peanut, shellfish containing products, and vicodin [hydrocodone-acetaminophen]. Past Medical History: has no past medical history on file. Past Surgical History: has a past surgical history that includes Upper Gi Endoscopy, Biopsy ([id number])(N/A, 08/31/2020); Colonoscopy, Rocco Peralta ([id number]) (N/A, 08/31/2020); and Endoscopic Us Exam,Susan ([id number]) (N/A, 01/09/2021). Family History: family history is not on file. Social History: reports that he has never smoked. He has never used smokeless tobacco. He reports previous alcohol use. He reports previous drug use. No Physical Examination performed during this telemedicine visit Laboratory studies, imaging, and procedures (my review of prior records): 1. ABD u/s 03/27/18; normal findings 2. CT scan abd/pelvis with contrast 01/17/18 ([facility]); lung nodule- otherwise unrevealing 3. EGD 07/06/18 [facility]; pyloric stenosis with balloon diltation. 4. Colonoscopy by Dr. Clemens 5. A1c, 8 AM cortisol, TSH, TTG IgA, IgA 08/16/2020; 6. MRCP 08/07/2020; single 3 mm filling defects along the nondependent gallbladder wall most likely a polyp or adherent gallstone. 7. Small bowel follow-through 08/16/2020; normal. Orocecal transit time 55 minutes 8. EGD 08/31/2020; slightly ringed esophagus. Fundic gland polyp. Biopsies esophagus without diagnostic abnormality. Stomach without diagnostic abnormality. Duodenum without diagnostic abnormality. 9. Colonoscopy 08/31/2020; 1 polyp. Biopsies-colonic mucosa without diagnostic abnormality. Hyperplastic polyp. 10. MRI brain 01/09/21; incidental small arachnoid cysts at the anterior right middle cranial fossa and adjacent ot the anterior right falx without substantial mass effect. Otherwise normal MRI. 11. EUS 01/09/21; normal esophagus. small hiatal hernia. mutiple benign appearing fundic gland polyps. normal duodenum. One small gallstone. Assessment/Plan: Mr. Garcia is a 56 y.o. patient with 1. Cyclic vomiting syndrome- Work-up has been unremarkable including an MRCP, 8 AM cortisol, celiacpanel, EGD, colonoscopy, and small bowel follow-through (with the exception of hypermobility in thesmall intestine). MRI of brain with several arachnoid cysts, which upon further review by neurologyis not thought to be contributing to symptoms. May be worth checking a C1 esterase to evaluate for hereditary familial angioedema. He may benefit from a more standardized regimen for prophylaxis and abortive therapy. He will be following up with his primary care provider tomorrow. 2. Dyspepsia with nausea and overlapping CVS; Endorses 2-3 days of nausea per week. Consider role of polypharmacy. Recommendations: -He will follow-up with his PCP to discuss polypharmacy -For local managing provider to consider; medication review with possible medication reduction Treatment plan for PCP and local team based on appropriateness from a non-GI standpoint Step 1) increase amitriptyline to 25 mg once daily Step 2) consider sumatriptan nasal spray for abortive therapy Step 3) consider aprepitant 80mg daily (NK1 antagonist), if ineffective can increase to 125mg daily(counseled on risks of fatigue, neutropenia, hypersensitivity, hepatotoxicity), references Am J Physiol Gastrointest Liver Physiol. 2017;313:G505-10 and Gastroenterology. 2018;154:65-76 Step 4) consider BuSpar Maria Del Carmen Lutz APRN [facility] [place] [address] documented in this encounter Plan of Treatment Not on file documented as of this encounter Procedures Procedure Name Priority Date/Time Associated Diagnosis Comments HC PCH C1 ESTERASE INHIBITOR, SERUM Routine 01/21/2022 1:34 PM EST Cyclic vomiting syndrome HC VENIPUNCTURE Routine 01/21/2022 1:34 PM EST Cyclic vomiting syndrome documented in this encounter Results * C1 Esterase Inhibitor, Functional (01/21/2022 1:34 PM EST) Pathologist [facility] C1 Willow Inh Qnt (MARCH) >90 % normal [facility] Comment: REFERENCE VALUE >67 (Normal) 41-67 (Equivocal) <41 (Abnormal) Test Performed by: [facility] [address] Pipe Wrapping Machine Operator: Felipe Koo M.D. Ph.D.; CLIA# [id number] Blood 01/21/2022 1:34 PM EST 01/21/2022 3:00 PM EST Narrative Resulting Agency Comment Spec In Lab Maria Del Carmen Lutz APRN LAB SEND OUT ORD ERABLES Performing Organization Address City/[facility] Co de Phone Number [facility] [place] [address] * (ABNORMAL) C1 Esterase Inhibitor Antigen (01/21/2022 1:34 PM EST) Pathologist [facility] C1 Willow Inh Ag (MARCH) 39(H) 19 - 37 mg/dL [facility] Comment: Test Performed by: [facility] [address] Pipe Wrapping Machine Operator: Felipe Koo M.D. Ph.D.; CLIA# [id number] Blood 01/21/2022 1:34 PM EST 01/21/2022 3:00 PM EST Narrative Resulting Agency Comment Spec In Lab Maria Del Carmen Lutz APRN LAB SEND OUT ORD ERABLES Performing Organization Address City/[facility] Co de Phone Number [facility] [place] [place] [address] documented in this encounter Visit Diagnoses Diagnosis Cyclic vomiting syndrome Persistent vomiting Nausea and vomiting, intractability of vomiting not specified, unspecified vomiting type documented in this encounter Care Teams Manager Pathology Relationship Specialty Start Date End Date Senthil Mitchell MD [address] [place] [address] [place] [address] PCP - General Family Medicine 12/23/21 06/01/22 documented as of this encounter
--- OUTSIDE RECORDS SUMMARY | 2024-07-07 11:43 | XMS_ITS | Encounter Summary ---
[place] [address] Care Team Providers Care Ramp Jockey Name Role Phone Kenia Devine MD Primary Care Provider [phone] Encounter Details Date Type Department Care Team (Late st Contact Info) Description 08/18/2023 Ancillary Procedure [place] [address] Kenia Devine MD [address] [place] [id number] Social History Tobacco Use Types Packs/Day [...] FILM LIBRARY STORAGE ONLY CT CHEST Routine 08/18/2023 12:00 AM EDT documented in this encounter Results * Film Library- Storage Only CT Chest (08/18/2023 12:00 AM EDT) Narrative [facility] - 02/26/2024 11:00 AM EDT This exam is auto-finalizing. It's purpose is for storage only. Kenia Devine MD IMG FILM LIBRARY OR DERABLES [place], [place] documented in this encounter Visit Diagnoses Not on filedocumented in this encounter Care Teams Ramp Jockey Relationship Specialty Start Date End Date Kenia Devine MD [address] [place] [address] [place] [address] PCP - General Family Medicine 06/02/22 documented as of this encounter
--- OUTSIDE RECORDS SUMMARY | 2024-07-07 11:43 | XMS_ITS | Encounter Summary ---
Author Organization [facility] [place] [address] Care Team Providers Care Avionics Systems Integration Specialist Name Role Phone Senthil Mitchell MD Primary Care Provider + Encounter Details Date Type Department Care Team (Late st Contact Info) Description 02/12/2021 [place] [id number] Julián Sawyer PA [facility] [place] [address] Social History Tobacco Use Types Packs/Day Years [...] encounter Miscellaneous Notes * Telephone Encounter - Emma Vaz - 01/17/2022 4:24 PM EST Pt recd letter updated MRI ?'s and scheduled for 02/25 appts. * Telephone Encounter - Amy Moore - 01/01/2022 4:38 PM EST Letter mailed to patient requesting call back for scheduling. * Telephone Encounter - Emma Vaz - 12/16/2021 3:11 PM EST LM for pt to call back to update MRI ?'s * Telephone Encounter - Emma Vaz - 02/12/2021 3:44 PM EDT Patient needs f/u appointment(s): With DPS on/around 02/12/22 1 yr ov, s/p Arachnoid cyst, MRI Brain prior * Telephone Encounter - Emma Vaz - 02/12/2021 3:44 PM EDT Julián Sawyer PA Sent: Suman February 12, 2021 ??2:40 PM To: P [facility] Meal Packer; William Louis MD ?? Follow-up and Dispositions Check-out Note: FU w/ MRI brain in 12 months documented in this encounter Plan of Treatment Not on file documented as of this encounter Visit Diagnoses Not on filedocumented in this encounter Care Teams Avionics Systems Integration Specialist Relationship Specialty Start Date End Date Senthil Mitchell MD [address] [place] [address] [place] [address] PCP - General Family Medicine 12/23/21 06/01/22 documented as of this encounter
--- OUTSIDE RECORDS SUMMARY | 2024-07-07 11:43 | XMS_ITS | Encounter Summary ---
Author Organization [facility] Address [facility] [place] [address] Care Team Providers Care Engraver Block Name Role Phone Estefani Nicole MD Primary Care Provider + Reason for Visit * Auth/Cert Specialty Diagnoses / Procedures Referred By Dasia phelps Referred To Contact Diagnoses Pancreatic insufficiency EUS to evaluate for pancreatic lesions in setting of CVS without identified etiology Coordinated with Brain MRI 01/09 Procedures PRO ENDOSCOPIC US EXAM, ESOPH PRO ANESTH, COMBINED UPPER OR LOWER ENDOSCOPY UPPER EUS- ENDOSCOPIC ULTRASOUND Referral ID Status Reason Start Date Expiration Date Visits Re quested Visits Authorized [id number] 1 1 Encounter Details Date Type Department Care Team (Late st Contact Info) Description 01/09/2021 12:20 PM EST Anesthesia [place] [address] Tamir Arellano MD [facility] [place] [address] Anesthesia Record Procedure Summary Procedure Name Responsible Anesthesiologist Anesthesia Start Time Anesthesia Stop Time UPPER EUS- ENDOSCOPIC ULTRASOUND (WRVU 3.47) (Trunk) Tamir Arellano MD 01/09/21 1220 01/09/21 1247 Events Date Time Event Comment 01/09/2021 1219 1220 AN Verify 1220 Start 1220 An Start Data 1225 An Induction 1225 Anesthesia Ready 1247 an stop data 1247 Recovery or ICU Handoff Rosa ent care was transferred to the destination unit staff after review of the patient's medical history, current anesthetic/surgical status and plan, according to the Provider Handoff Checklist. 1247 Stop Meds Name Total Propofol 50 mg Propofol INF 356.32 mg * Agents Name O2 Air N2O O2 Auxiliary Flowmeter 1 * Blood No blood administrations on file. Lines, Drains, and Airways Type Details Placement Removal (RETIRED) Peripheral IV Line - Single Lumen 01/09/21; 0812; median cubital vein (antecubital fossa), left; gjxh-ivj-exymhi catheter system; 22 gauge; tolerated well; 08/21/21 (LDA Cleanup utility RA#[id number]); 1650 (LDA Cleanup utility RA#[id number]) 01/09/21 0812 by Radha Espinoza 08/21/21 1650 by Salvador Vargas documented in this encounter Social History Tobacco [...] OR Notes * Anesthesia Postprocedure Evaluation - Tamir Arellano MD - 01/09/2021 12:51 PM EST Department of Anesthesiology Post-procedure Note Patient: Joe Garcia Procedure Summary Date: 01/09/21 Room / Location: [facility] ENDO 2 / [facility] ENDOSCOPY Anesthesia Start: 1220 Anesthesia Stop: 1247 Procedure: UPPER EUS- ENDOSCOPIC ULTRASOUND (N/A Trunk) Diagnosis: (EUS to evaluate for pancreatic lesions in setting of CVS without identified etiology) (Coordinated with Brain MRI 01/09) Surgeons: Zhen Carnes MD Responsible Provider: Tamir Arellano MD Anesthesia Type: MAC ASA Status: 2 All Anesthesia Providers: Anesthesiologist: Tamir Arellano MD REDYE HAND: Tamir Baker CRNA Vitals Value Taken Time BP Temp Pulse Resp SpO2 Pain Level Patient Location: PACU/[facility] Level of Consciousness: Awake and Alert Pain Management: Satisfactory Analgesia PONV: None Cardiovascular Status: At Baseline and Hemodynamically Stable Respiratory Status: At Baseline and Room Air Postoperative Fluid Status: Intravascular EUvolemia Possible Anesthetic Complications: NONE apparent at time of evaluation Final Primary Anesthesia Type: MAC (The anesthetic type performed was the same as planned.) Comments: Tamir Arellano MD * Anesthesia Preprocedure Evaluation - Tamir Arellano MD - 01/09/2021 10:21 AM EST Pre-Anesthesia Evaluation for: Joe Garcia a 55 y.o. male. Procedure(s): EGD, UPPER GI ENDOSCOPY COLONOSCOPY, DIAGNOSTIC There are no problems to display for this patient. No past medical history on file. Past Surgical History: Procedure Laterality Date ??? PRO COLONOSCOPY, REMV LESN, SNARE N/A 08/31/2020 COLONOSCOPY, POLYPECTOMY, REMOVAL LESION BY SNARE (WRVU 4.67) performed by Perez Rubalcava MD at [facility] ENDOSCOPY ??? PRO UPPER GI ENDOSCOPY, BIOPSY N/A 08/31/2020 EGD WITH BIOPSY (WRVU 2.49) performed by Perez Rubalcava MD at [facility] ENDOSCOPY Social History Tobacco Use ??? Smoking status: Never Smoker ??? Smokeless tobacco: Never Used Substance Use Topics ??? Alcohol use: Not Currently Social History Substance and Sexual Activity Drug Use Not Currently Allergies Allergen Reactions ? ? Dust & Pollen Filter Mask [Facial Mask] Other (See Comments) rhinositis ??? Fish Containing Products Nausea And Vomiting ??? Peanut Anaphylaxis ??? Shellfish Containing Products Nausea And Vomiting ??? Vicodin [Hydrocodone-Acetaminophen] Other (See Comments) Throat gets itchy Medications: MAR and/or home medications have been reviewed. Physical Exam: No data found. There is no height or weight on file to calculate BMI. Airway Assessment: Mallampati: III TM distance: >3 FB Neck ROM: full Cardiovascular Assessment: Rhythm: regular Rate: normal system normal Pulmonary Assessment: pulmonary exam normal Dental Assessment: (+) upper dentures and lower dentures Comment: Partial lower Misc Assessment: Patient is wearing No contact(s). IV access: Peripheral line Other exam findings: Anesthesia Plan: ASA 2 MAC, with a(n) intravenous induction 55 yo 104 kg M with PMH: Obesity (BMI: 33.15 kg/m??), mild asthma (albuterol as needed, Symbicort),MDD (aripiprazole, bupropion, risperidone, sertraline), hyperemesis (metoclopramide, prochlorperazine, ondansetron), GERD (omeprazole), insomnia (melatonin, mirtazapine) no history of tobacco or marijuana. Patient presents here today for EGD with endoscopic ultrasound to evaluate pancreatic lesionsin the setting of CVS without identified etiology. Prior anesthetics: EGD in the past with no anesthesia issue. NPO status: Appropriate Allergies: Dust and pollen, fish-containing products, peanut, shellfish allergies, Vicodin Plan: MAC, PIV x1, standard ASA monitors, Region - Other Informed Consent: Anesthetic plan and risks discussed with patient. Use of blood products discussed with patient who consented to blood products. Plan discussed with REDYE HAND and attending. PAT Clinic Note documented in this encounter Plan of Treatment Not on file documented as of this encounter Visit Diagnoses Not on filedocumented in this encounter Administered Medications Inactive Administered Medications - up to 3 most recent administrations Medication Order MAR Action Action Date Dose Rate Site propofoL (Diprivan) 10 mg/mL bolus injection (Anesthesia) Intravenous, PRN, Starting on Thu01/09/21 at 1225, Until Thu01/09/21 at 1247, Anesthesia Intra-op Given 01/09/2021 12:25 PM EST 50 mg propofoL (Diprivan) infusion Intravenous, CONTINUOUS PRN, Starting on Thu01/09/21 at 1225, Until Thu01/09/21 at 1247, Anesthesia Intra-op, Routine New Bag 01/09/2021 12:25 PM EST 200 mcg/kg/min 125.76 mL/hr documented in this encounter Care Teams Engraver Block Relationship Specialty Start Date End Date Estefani Nicole MD [facility] [place] [address] PCP - General Family Medicine 10/19/19 12/22/21 documented as of this encounter
--- OUTSIDE RECORDS SUMMARY | 2024-07-07 11:43 | XMS_ITS | Encounter Summary ---
Author Organization [facility] [place] [address] Care Team Providers Care Sleeping Room Cleaner Name Role Phone Senthil Mitchell MD Primary Care Provider + Encounter Details Date Type Department Care Team (Late st Contact Info) Description 01/03/2022 5:05 PM EST Ancillary Procedure [place] [phone] Senthil Mitchell MD [address] [place] [id number] Social History Tobacco Use Types Packs/Day Years [...] Diagnosis Comments FILM LIBRARY STORAGE ONLY CT ABDOMEN AND PELVIS Routine 01/03/2022 5:01 PM EST documented in this encounter Results * Film Library- Storage Only CT Abdomen & Pelvis (01/03/2022 5:01 PM EST) Narrative [facility] - 01/03/2022 5:01 PM EST This exam is auto-finalizing. It's purpose is for storage only. Senthil Mitchell MD IMG FILM LIBRARY ORDERABLES [place], [place] documented in this encounter Visit Diagnoses Not on filedocumented in this encounter Care Teams Sleeping Room Cleaner Relationship Specialty Start Date End Date Senthil Mitchell MD [address] [place] [address] [place] [address] PCP - General Family Medicine 12/23/21 06/01/22 documented as of this encounter
--- OUTSIDE RECORDS SUMMARY | 2024-07-07 11:43 | XMS_ITS | Encounter Summary ---
Author Organization [facility] Address [facility] [place] [address] Care Team Providers Care Stitch Separator Name Role Phone Kenia Devine MD Primary Care Provider [phone] Reason for Visit * Reason Comments Nodule * Consultation (Routine) - Closed Specialty Diagnoses / Procedures Referred By Dasia phelps Referred To Contact Thoracic Surgery Diagnoses Swelling of lymph nodes Isolated enlarged lymph node noted on two subsequent CTs Kenia Devine MD [address] [place] [id number] [facility] Thoracic Surg [address] [place] [phone] Referral ID Status Reason Start Date Expiration Date V isits Requested Visits Authorized [id number] Closed Consult, Test & Treat 02/29/2024 02/28/2025 1 1 Encounter Details Date Type Department Care Team (Late st Contact Info) Description 04/21/2024 10:15 AM EDT Office [place] [address] Chcae Enriquez MD [facility] [place] [address] Mediastinal mass Social History Tobacco Use Types Packs/Day Years [...] Sign Reading Time Taken Comments Blood Pressure 106/70 04/21/2024 9:35 AM EDT Pulse 74 04/21/2024 9:35 AM EDT Temperature 37 ??C (98.6 ??F) 04/21/2024 9:35 AM EDT Respiratory Rate 20 04/21/2024 9:35 AM EDT Oxygen Saturation 97% 04/21/2024 9:35 AM EDT Inhaled Oxygen Concentration - - Weight 119.6 kg (263 lb 10.7 oz) 04/21/2024 9:35 AM EDT Height 177.8 cm (5' 10) 04/21/2024 9:35 AM EDT Body Mass Index 37.83 04/21/2024 9:35 AM EDT documented in this encounter Patient Instructions * Patient Instructions* Meghan Victoria, RN - 04/21/2024 10:15 AM EDT Thank you for visiting Dr. Enriquez in clinic 04/21/24 Dr. Enriquez would like to schedule you for your Robot assisted Video Assisted Thoracoscopic Surgery (RVATS) Thymectomy, mediastinal mass excision. Your procedure is scheduled for TBD. You will receive a phone call from the OR nurses on TBD after 2pm through 6 pm. They will confirm your arrival time, review what medications to take and when to stop eating and drinking. Your procedure will occur in construction rigger area 4W. Please park in the parking garage and you will come into the medical center on level 4. Go straight, all the way to the end of the simmons, that is Same day surgery wooden desk also construction rigger area 4W. In RVATS or robot-assisted video-assisted thoracic surgery, the surgeon controls the camera, light source and surgical tools from a console, with the same degree of flexibility and dexterity as if they were held in the surgeon's hand. The tiny size of the instruments and the precision movement of the robotic arms allow the surgeon to operate in small and vsiw-ae-[id number] places in the chest cavity, and to move carefully around sensitive blood vessels, tissues and organs, enabling more difficult procedures to be performed with RVATS versus open surgery. A thymectomy is the removal of the thymus. The thymus, a small organ that lies in the upper chest under the breastbone, is part of the lymph system. It makes white blood cells, called lymphocytes, that protect the body against infections. This is a gland that helps protect you from infections during childhood, but has no known function in adults. Mediastinal tumors, also called masses, are benign (non- cancerous) or cancerous growths that form in the area of the chest that separates the lungs. This area, called the mediastinum, is surrounded by the breastbone in front, the spine in back, and the lungs on each side. The mediastinum contains the heart, aorta, esophagus, thymus and trachea. Before your Surgery: PLEASE WASH WITH HIBICLENS SOAP included in this package. Please wash your chest, sides and back. You may shower either the night before or the morning of surgery and please place clean clothes on after your shower. Exercise: Daily aerobic exercise for at least 30 minutes will help improve your endurance and improve the breathing capacity of your lungs. This means that you are breathing hard, your heart is beating fast and that you are sweating. Examples of this include walking, biking, swimming, and using a treadmill or stationary bike. You will be expected to exercise after surgery as well. Incentive Spirometer: Place the Incentive spirometer in your mouth when you are ready to take a slow deep breath in through your mouth (sucking motion, DO NOT BLOW into the device). Use your incentive spirometer as you were shown in clinic: 6 times daily/10 breaths each time (total of at least 60 times in a day). It is a sucking motion when you take a slow deep breath in, DO NOT BLOW INTO THIS MACHINE Take a slow, deep breath in through your mouth. While the piston rises, the indicator on the right should move upwards. It should stay between the 2 arrows for 2 to 4 seconds with each breath. If theindicator does not stay between the arrows, you are breathing either too fast or too slowly. The incentive spirometer will help you expand your lungs and encourage you to breathe deeply and fully. You will use the incentive spirometer as part of your recovery process and to prevent complications such as pneumonia. Things to bring to your hospital stay. You may bring your cellphone, and land development manager, pajama pants and shirts, under garments, comfy clothes for the ride home (a button down shirt may be the easiest to put on), sneakers or slippers with rubber soles, any toiletries that you prefer over hospital supplied toothbrush, toothpaste, deodorant. AFTER SURGERY A Chest tube is a flexible tube that is used to drain blood, fluid and air from around your lungs after surgery. The tube enters your body between your ribs and goes into the space between the inner lining and outer lining of your lung. This is called the pleural space. The chest tube will come outa day after surgery, if there is no air leak in your lung. If there is an air leak, the chest tube will stay in until it stops. The nurse and doctor will be watching for the air leak to clear up regularly throughout the day. Post Surgery Instructions at home for bowel regimen: Bowel regimen while at home. Please obtain senna (Senokot) tablets, colace tablets, and Miralax powder. You will need to take senna once a day, colace three times a day and miralax once a day to keep your bowels moving. If you do not have a bowel movement in 2 days you will need to call the office as you will need to obtain either Milk of Magnesia (MOM), a Fleet's enema or glycerin suppositories. If you are having diarrhea, then you may back off on the bowel medications. If you are taking narcotics, you need to continue the bowel medications while you are taking the narcotics. Post Surgery Instructions at home for pain medication: Example of what you will be taking for pain control after your surgery. Please make sure that you have Extra strength Tylenol (acetaminophen) and Motrin (ibuprofen) at home before you are discharged. Extra strength acetaminophen 1000 mg alternate with ibuprofen 200 mg (2-3 tabs) every 3 hours or take both medications together every 6 hours: ex. Schedule - Extra strength acetaminophen 1000 mg at 8am, Ibuprofen 200 mg (2-3 tabs) at 11 am, then Extra strength acetaminophen 1000 mg at 2 pm, then ibuprofen 200 mg (2- 3 tabs) at 5 pm. Do not exceed more than 4000 mg of Extra strength acetaminophen in 24 hour period. You may experience some numbness. This numbness can last a few days to a few weeks. This numbness may not be near your incisions, but you may experience this near your rib cage and like a bandlike numbness near your abdomen. Dr. Enriquez's team will see you twice per day while you are in the hospital. Two weeks after you leave the hospital, you will be scheduled to see Dr. Enriquez in his clinic and will also have a chest x-ray before you see him on this day. Please call the Thoracic Surgery nurse if you have any questions before or after your surgery at . documented in this encounter Progress Notes * Chace Enriquez MD - 04/21/2024 10:15 AM EDT Today I saw Joe Garcia in clinic with our PA, Brian Rizvi. Please see my addendum to his note. Chace Enriquez MD 04/21/2024 documented in this encounter H&P Notes * Chace Rizvi PA - 04/21/2024 10:15 AM EDT Images from the original note were not included. Thoracic Surgery Outpatient Consultation Note MD Chace Pickard PA-C [place] [address] Referring Provider: Kenia Devine MD [address] [place] [address] [place] [address] Reason for Consultation: Anterior mediastinal mass Today, 04/21/2024, we saw Mr. Garcia in the Thoracic Surgery Clinic at [facility] in consultation regarding an anterior mediastinal mass [...] and density. Patient was then referred to [facility] [place]acic Surgery for further evaluation. We have personally reviewed the following scans and results that are part of the work up, including: CT Chest on 03/23/2024: CT Chest on 08/18/2023: CT Chest on 04/20/2023: Patient is a former light smoker for about a year during his teens, none since then, denies ETOH / illicit drug use. 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 He denies fevers, night sweats, or chest pain on exertion. He has gained about 10 pounds recently. He is able to walk without any significant limitation as long as he paces himself, and up one or more flights of stairs without difficulty. His ECOG performance status is 0 -Asymptomatic A 14-point review of systems is otherwise negative, except where noted above. He has a past medical history of ADHD, rhinitis, back pain, knee pain, carpal tunnel syndrome, cerebral arachnoid cyst, cholelithiasis, cyclical vomiting syndrome, depression, dysuria, GERD, hypertension, insomnia, asthma, CARLOS, pre- diabetes, inguinal hernia He has a past surgical history that includes Upper Gi Endoscopy, Biopsy ([id number]) (N/A, 08/31/2020); Colonoscopy, Lauro Nichols, Snare ([id number]) (N/A, 08/31/2020); Endoscopic Us Exam, Esoph ([id number]) (N/A, 01/09/2021); and Endoscopic Wrist Surg Release Transverse Carpal Ligament ([id number]) (Right, 01/31/2022). Hehas had a cholecystectomy and inguinal hernia repair. He has a current medication list which includes the following prescription(s): albuterol, tramadol,amlodipine, sumatriptan, escitalopram, baclofen, cyclobenzaprine, ondansetron odt, tamsulosin, amitriptyline, prochlorperazine, budesonide-formoterol, ondansetron, omeprazole, bupropion xl, mirtazapine, risperidone, proair hfa, melatonin, ciprofloxacin-dexamethasone, prednisone, nabumetone, prochlorperazine, and epinephrine. He is allergic to dust & pollen filter mask [facial mask], fish containing products, peanut, shellfish containing products, tree nut, egg, hydrochlorothiazide, metoclopramide, mold, and vicodin [h ydrocodone-acetaminophen]. His family history is notable for Father with CAD and depression. A review of his social history shows: Social History Tobacco Use Smoking status: Never Smokeless tobacco: Never Substance Use Topics Alcohol use: Not Currently On examination, Mr. Garcia is a well nourished, well-developed male. He is alert and oriented. VitalSigns: BP 106/70 (Patient Position: Sitting) Pulse 74 Temp 37 ??C (98.6 ??F) (Temporal) Resp 20 Ht 177.8 cm (5' 10) Wt 119.6 kg (263 lb 10.7 oz) SpO2 97% BMI 37.83 kg/m?? Body mass index is 37.83 kg/m??. His pulse is regular, breathing is unlabored and temperature is afebrile. In general he is in no acute distress. His pupils are reactive. His sclera are anicteric. He has no palpable cervical or supraclavicular adenopathy. The lung voss are clear to auscultation bilaterally. Heart rate and rhythm are normal, and there is no murmur. The abdomen is soft and nontender. No organsor masses are palpable. There is 1+ bilat LE edema present, no cyanosis or clubbing of the extremities. Pulses are full and equal bilaterally. Neurologic examination is grossly intact. Musculoskelatal exam is grossly intact with 5/5 strength. His skin is non-jaundiced. In summary, Mr. Garcia is a 58 y.o. male with an anterior mediastinal mass. We have discussed the differential diagnosis including thymic hyperplasia, thymoma, lymphoma, metastatic process or other benign process. We have discussed options including observation/surveillance or surgical resection. Vanessa discussed with him the risks of a bronchoscopy and robot assisted Left VATS resection of anteri or mediastinal mass. He understands the risks of bleeding, damage to surrounding structures, including the laryngeal nerve resulting in hoarseness, the phrenic nerve resulting in diaphragmatic paralysis, possible shortness of breath, the need for oxygen, a benign nodule, cancer recurrence (if cancer), a prolonged air leak, heart attack, arrhythmia, stroke and . He asked appropriate questions and would like to proceed. Consent was signed today in clinic. We have asked Mr. Garcia to begin a regular exercise regimen that involves dedicated walking 30-60 minutes per day, 6 days per week, or some equivalent form of exercise/activity. We have provided him with an incentive spirometer and instructed him on its use, asking him to use it several times a day. His procedure will be scheduled in the next few weeks once his PFTs have been scheduled. Additional work up will include baseline EKG and labs (CBC, CMP, AFP, LDH, TSH, HCG, AchRAb), as well as PFTs to assess baseline lung function. If he should have any further questions or concerns, he should feel free to contact us at any time. Patient was seen and evaluated in conjunction with Dr. Enriquez. ELEN Serrato 04/21/2024 Thoracic Surgery [facility] I have seen the patient and reviewed the PA's above note and I agree with the details as written. Javon personally reviewed the relevant imaging. The assessment and plan were formulated in discussion with me and I agree with them as documented. I had the above documented discussion with the patient and the associated counseling and medical decision making. I have edited the note as appropriate. Labs today are within normal limits with the exception of a hgb of 12.7; awaiting AChR ab. PFTs scheduled for next week closer to home and we will obtain these results once they are available. EKG shows NSR. I spent >55 minutes in the total care of this patient including review of records and imaging, [id number] consultation and counseling, interpretation of studies, coordination of care and documentation. Chace Enriquez MD documented in this encounter Plan of Treatment Scheduled Orders Name Type Priority Associated Diagnoses Orde r Schedule Common Pulmonary Function Test PFT Routine Mediastinal mass Expected: 04/21/2024, Expires: 04/21/2025 EKG 12 Lead ECG Routine Mediastinal mass Expected: 04/21/2024 (Approximate), Expires: 10/21/2024 documented as of this encounter Procedures Procedure Name Priority Date/Time Associated Diagnosis Comments HEMOGRAM Routine 04/21/2024 11:26 AM EDT Mediastinal mass DIFFERENTIAL, AUTOMATED Routine 04/21/2024 11:26 AM EDT Mediastinal mass ACETYLCHOLINE RECEPTOR AB BINDING Routine 04/21/2024 11:26 AM EDT Mediastinal mass AFP TUMOR MARKER Routine 04/21/2024 11:2 6 AM EDT Mediastinal mass CBC (WITH DIFF) Routine 04/21/2024 11:26 AM EDT Mediastinal mass BETA HCG, QUANTITATIVE Routine 11:26 AM EDT Mediastinal mass TSH Routine 04/21/2024 11:26 AM EDT Mediastinal mass LACTATE DEHYDROGENASE Routine 04/21/2024 11:26 AM EDT Mediastinal mass COMPREHENSIVE METABOLIC PANEL Routine 04/21/2024 11:26 AM EDT Mediastinal mass documented in this encounter Results * (ABNORMAL) Differential, Automated (04/21/2024 11:26 AM EDT) Neutrophil % 68.6 % [facility] Neutrophil Absolute 5.00 1.70 - 6.10 x10(3)/mc L [facility] Lymph % 20.5 % [facility] Lymphocytes Abs 1.5 0.9 - 3.2 x10(3)/mc L [facility] Monocyte % 7.7 % [facility] Monocyte Abs 0.6 0.3 - 0.9 x10(3)/mc L [facility] Eos % 1.9 % [facility] Eosinophils Abs 0.1 0.0 - 0.4 x10(3)/mc L [facility] Basophil % 0.5 % [facility] Baso Absolute 0.0 0.0 - 0.1 x10(3)/mc L [facility] Immature Gran % 0.80 % [facility] Comment: Immature granulocytes(IG's)percentage and absolute count will include metamyelocytes, myelocytes, and promyelocytes. Blood smears from CBCs yielding IG's will be scanned manually for concordance. If this scan disagrees with the automated IG or if promyelocytes are noted, a manual differential will be performed. Immature Gran Absolute 0.06(H) 0.00 - 0.04 x10(3)/mc L [facility] Blood 04/21/2024 11:2 6 AM EDT 04/21/2024 11:51 AM EDT Narrative Resulting Agency Comment Spec In Lab Chace Enriquez MD HEMATOLOGY ORDERABL ES [facility] [place] [address] * (ABNORMAL) Hemogram (04/21/2024 11:26 AM EDT) White Blood Cell 7.3 4.0 - 9.5 x10(3)/mc L [facility] Red Blood Cell 4.61 4.58 - 5.54 x10(6)/mc L [facility] Hemoglobin 12.7(L) 13.7 - 16.5 g/dL [facility] Hematocrit 38.4(L) 40.5 - 48.5 % [facility] Mean Cell Volume 83.3 82.9 - 93.1 fL [facility] Mean Cell Hemoglobin 27.5 27.5 - 32.1 pg [facility] Mean Cell Hemoglobin Concentration 33.1 32.0 - 35.7 g/dL [facility] Platelet 192 145 - 357 x10(3)/mc L [facility] RDW Standard Deviation 41.3 36.0 - 45.0 [facility] RDW coefficient of variation 13.6 11.4 - 13.8 % [facility] Mean Platelet Volume 12.4 7.6 - 12.9 fL [facility] NRBC% auto 0.0 % [facility] NRBC Absolute 0.000 0.000 - 0.000 x10(3)/mc L [facility] Blood 04/21/2024 11:2 6 AM EDT 04/21/2024 11:51 AM EDT Narrative Resulting Agency Comment Spec In Lab Chace Enriquez MD HEMATOLOGY ORDERABL ES Performing Organization Address [facility] de Phone Number [facility] [place] [address] * TSH (04/21/2024 11:26 AM EDT) [facility] Thyroid Stimulating Hormone 1.94 0.27 - 4.20 mcIU/mL [facility] Comment: Reference Interval (mcIU/mL): Females: ??First Trimester: 0.23-3.88 ??Second Trimester: 0.22-3.90 ??Third Trimester: 0.44-4.66 Blood 04/21/2024 11:2 6 AM EDT 04/21/2024 11:51 AM EDT Narrative Resulting Agency Comment Spec In Lab Chace Enriquez MD CHEMISTRY ORDERABLE S Performing Organization Address [facility] Phone Number [facility] [place] [address] * Acetylcholine Receptor Ab Binding (04/21/2024 11:26 AM EDT) [facility] Achr Binding Ab (MARCH) 0.00 <=0.02 nmol/L [facility] Comment: ADDITIONAL INFORMATION This test was developed and its performance characteristics determined by [facility] in a manner consistent with CLIA requirements. This test has not been cleared or approved by the U.S. Food and Drug Administration. Test Performed by: [address] [address] Internal Medicine Physician Assistant: Felipe Koo M.D. Ph.D.; CLIA# [id number] Blood 04/21/2024 11:2 6 AM EDT 04/21/2024 1:59 PM EDT Narrative Resulting Agency Comment Spec In Lab Chace Enriquez MD LAB SEND OUT FANTASMAGiovanni MARTINEZMarlon [facility] [place] [address] * Beta HCG, quantitative (04/21/2024 11:26 AM EDT) Beta Human Chorionic Gonadotropin, Quantitative <1 0 - 2 mlU/ML [facility] Comment: REFERENCE RANGES NON- [...] - 56,451 ?17 weeks ? 8,175 - 68,868 ?18 weeks ? 8,249 - 26,176 This result was generated using a Monalisa Deisy immunoassay. ??Results obtained from other methods or manufacturers cannot be used interchangeably with this method. Blood 04/21/2024 11:2 6 AM EDT 04/21/2024 11:51 AM EDT Narrative Resulting Agency Comment Spec In Lab Chace Enriquez MD CHEMISTRY ORDERABLE S Performing Organization Address [facility]/State/ZIP Co de Phone Number [facility] [place] [address] * Lactate Dehydrogenase (04/21/2024 11:26 AM EDT) Lactate Dehydrogenase 185 110 - 220 unit/L [facility] Blood 04/21/2024 11:2 6 AM EDT 04/21/2024 11:51 AM EDT Narrative Resulting Agency Comment Spec In Lab Chace Enriquez MD CHEMISTRY ORDERABLE S Performing Organization Address [facility] Co de Phone Number [facility] [place] [address] * AFP tumor marker (04/21/2024 11:26 AM EDT) Alpha Fetoprotein <1.9 <=8.3 ng/mL [facility] Comment: This result was generated using a Monalisa Deisy immunoassay. ??Results obtained from other methods or manufacturers cannot be used interchangeably with this method. Blood 04/21/2024 11:2 6 AM EDT 04/21/2024 11:51 AM EDT Narrative Resulting Agency Comment Spec In Lab Chace Enriquez MD CHEMISTRY ORDERABLE S Performing Organization Address [facility] de Phone Number [facility] [place] [address] * (ABNORMAL) Comprehensive metabolic panel (non-fasting) (04/21/2024 11:26 AM EDT) Glucose 94 65 - 199 mg/dL [facility] Comment:Diabetes: >=200 mg/d L plus symptoms Blood Urea Nitrogen 17 10 - 20 mg/dL [facility] Creatinine 1.02 0.80 - 1.50 mg/dL [facility] Sodium 142 135 - 145 mmol/L [facility] Potassium 4.7 3.5 - 5.0 mmol/L [facility] Comment: Please note: ??Patients with WBC >100,000 may have falsely elevated Potassium levels. ??For accurate Potassium quantification in these patients send serum separator tube (gold top) for subsequent determinations. ??Contact the Clinical Chemistry Laboratory if there are any questions. Chloride 105 98 - 107 mmol/L [facility] Carbon Dioxide 24 22 - 31 mmol/L [facility] Anion Gap 13 5 - 15 mmol/L [facility] Calcium 9.7 8.5 - 10.5 mg/dL [facility] Protein, Total 7.2 6.1 - 8.0 g/dL [facility] Albumin 4.1 3.2 - 5.2 g/dL [facility] Aspartate Aminotransferase 22 0 - 39 unit/L [facility] Alanine Aminotransferase 31 0 - 55 unit/L [facility] Alkaline Phosphatase 132(H) 40 - 130 unit/L [facility] Bilirubin, Total 0.7 0.2 - 1.3 mg/dL [facility] Est Glomerular Filtration Rate 85 >=60 mL/min/1. 73 m?? [facility] Comment: This patient's estimated [...] Lab Chace Enriquez MD CHEMISTRY ORDERABLE S [facility] [place] [address] documented in this encounter Visit Diagnoses Diagnosis Mediastinal mass Swelling, mass, or lump in chest documented in this encounter Care Teams Stitch Separator Relationship Specialty Start Date End Date Kenia Devine MD [address] [place] [address] [place] [address] PCP - General Family Medicine 06/02/22 documented as of this encounter
--- OUTSIDE RECORDS SUMMARY | 2024-07-07 11:43 | XMS_ITS | Encounter Summary ---
Author Organization [facility] Address [facility] [place] [address] Care Team Providers Care Electrical Prospector Name Role Phone Senthil Mitchell MD Primary Care Provider + Reason for Visit * Reason Onset Date Comments Disability Paperwork 02/03/2022 Encounter Details Date Type Department Care Team (Late st Contact Info) Description 02/03/2022 Telephone [place] [phone] Long Kinney MD [facility] [place] [address] Disability Paperwork Social History Tobacco Use Types Packs/Day Years [...] encounter Miscellaneous Notes * Telephone Encounter - Melissa Zazueta - 02/12/2022 8:17 AM EDT Faxed/Mailed/MY PORTAL/Pick-up Date: Patient to citrus picker at their appt today with Nusrat at 10:20 * Telephone Encounter - Melissa Zazueta - 02/11/2022 12:58 PM EDT Completed by: Melissa To provider for review/signature: Out for signature * Telephone Encounter - Melissa Zazueta - 02/03/2022 1:54 PM EDT Date Received: 02/03/22 Insurance/Disability Company Name: Sarah documented in this encounter Plan of Treatment Not on file documented as of this encounter Visit Diagnoses Not on filedocumented in this encounter Care Teams Electrical Prospector Relationship Specialty Start Date End Date Senthil Mitchell MD [address] [place] [address] [place] [address] PCP - General Family Medicine 12/23/21 06/01/22 documented as of this encounter
--- OUTSIDE RECORDS SUMMARY | 2024-07-07 11:43 | XMS_ITS | Encounter Summary ---
[facility] [place] [address] Care Team Providers Care Bar Catcher Name Role Phone Senthil Mitchell MD Primary Care Provider + Reason for Visit * Auth/Cert Specialty Diagnoses / Procedures Referred By Dasia phelps Referred To Contact Diagnoses Right carpal tunnel syndrome right carpal tunnel syndrome Procedures PRO ENDOSCOPIC WRIST SURG RELEASE TRANSVERSE CARPAL LIGAMENT ENDOSCOPY WRIST W/ RELEASE TRANSVERSE CARPAL LIGAMENT (WRVU 6.39) Referral ID Status Reason Start Date Expiration Date Visits Re quested Visits Authorized [id number] 1 1 Encounter Details Date Type Department Care Team (Late st Contact Info) Description 01/31/2022 10:26 AM EDT - 01/31/2022 11:05 AM EDT Surgery [facility] [phone] Kamille Kinney MD [facility] [place] [address] ENDOSCOPY WRIST W/ RELEASE TRANSVERSE CARPAL LIGAMENT (WRVU 6.39) Social History Tobacco Use Types Packs/Day Years [...] Sign Reading Time Taken Comments Blood Pressure 106/80 01/31/2022 11:00 AM EDT Pulse 77 01/31/2022 11:00 AM EDT Temperature 36.2 ??C (97.2 ??F) 01/31/2022 10:44 AM E DT Respiratory Rate 16 01/31/2022 11:00 AM EDT Oxygen Saturation 98% 01/31/2022 11:00 AM EDT Inhaled Oxygen Concentration - - Weight 113.4 kg (250 lb) 01/31/2022 9:40 AM EDT Height 177.8 cm (5' 10) 01/31/2022 9:40 AM EDT Body Mass Index 35.87 01/31/2022 9:40 AM EDT documented in this encounter Discharge Instructions * Discharge Instructions* Kirti Reeder RN - 01/31/2022 9:48 AM EDT At 0945 am you received 975 mg of acetaminophen- Your next dose should not be taken before 8 hours have passed. Next dose not before- 5:45 PM You should not take more than a total of 3000 mg of acetaminophen in a 24 hour period. Moderate Sedation You may have received medication before and/or during your procedure, which affects your judgement and reaction time. Do not drive, operate machinery, drink alcoholic beverages, or make any legal decisions for 24 hours. Be careful on stairs, as you may be unsteady on your feet. You may eat a regular diet as tolerated. Do not smoke if you are alone. IV site -- slight redness, or tenderness is normal, you can use a warm compress. If tenderness and redness increases or foul drainage occurs, please contact your M. D. Questions or problems after 5pm or on a weekend: [facility] telephone [facility] chief and ask for the physician deputy commissioner covering for your doctor. * Patient Instructions* Robert Gant MD - 01/31/2022 10:19 AM EDT Orthopaedic Hand Surgery Same Day Discharge Instructions: General Activities Diet: Start light and progress as tolerated. No alcoholic beverages on the day of surgery or while taking narcotics. If taking narcotics, make sure you are getting plenty of fluids and fiber. In general, care should be taken the first several days following surgery to limit strenuous activity. You want to avoid any activities that you may lose your balance, slip, trip, fall or re-injure your surgery. You may shower tomorrow. Cover your dressing/cast with a plastic bag to keep it dry. No driving while taking narcotic medications or wearing a device (splint, cast, sling, brace) that limits joint mobility. When you feel you can safely control your vehicle and respond to unpredictable situations you may resume driving. Hand Use Decreased sensation for several hours following surgery is often from the local anesthesia used during the procedure. This will resolve on its own. If a regional anesthetic was used, wear your sling until you regain full function of your limb, andkeep a close eye on the positioning of your arm and hand. When you have regained function and sensation you may then remove the sling. Do not use your operative hand for any lifting, pushing or pulling. You may move your elbow and shoulder as tolerated. Gentle exercises with any exposed fingers are encouraged and gently opening and closing the digits will keep the joints flexible. Specific activities and exercises will be discussed at your first postoperative visit. Ice and elevation Some swelling is expected after surgery. Ice and elevation are the best remedies to reduce swellingand pain. Keep your hand properly elevated above the level of the heart i.e., fingers above palm, palm above the wrist, wrist above the elbow. Use pillows to increase elevation. Intermittently apply ice to the outside of the dressing for 20 minutes 6-8 times a day. You will want to ice and elevate for 5-7 days after surgery or as long as it hurts. Do not rely on a sling as it does not sufficiently elevate your hand. For proper elevation while walking around place your surgical hand on your opposite shoulder. Dressing/ Wound: The post-op dressing, splint or cast is a very important part of your treatment. If you have any questions please call us for clarification. If your dressing becomes wet or damaged please call the office. No creams, lotions or ointments on your incision. Keep steri-strips in place. They will fall off ontheir own Keep your dressing on and dry for 48 hours then you may remove. Cover your suture/incision with a Band-Aid and change as needed. Keep your incision clean and dry until follow-up appointment. Pain Management Most patients only require narcotics for a short period of time. Ice and elevation is an effective and important modality to use in conjunction with your oral pain medication. In a day or two you maybe ready to start decreasing the amount of pain medication your taking. Pain medication is to be taken on an ???as needed?if needed?? basis. Remember to start with the least amount and evaluate its effectiveness. You should not drink alcoholic beverages while on pain medication. If tolerated, please take Tylenol three times a day in conjunction with the narcotic as they complement each other. Once pain is better controlled, you may simply take extra strength Tylenol, one to two tablets every six hours as needed. Do not exceed 3,000 mg in 24 hours. The most common side effects of narcotic pain medications are nausea and constipation. To decrease nausea always take pain medication with food. If you are experiencing vomiting, please call us rightaway. To minimize constipation, drink plenty of fluids, eat a high fiber diet with plenty of fruitsand vegetables, and take a stool softener or laxative as needed. You may take an anti-inflammatory medication such as Ibuprofen/Advil/Motrin or Naproxen/Aleve. Refer to the medication bottles for daily allowance and dosing. Discontinue if it causes stomach upset. Contact Information: During clinic hours M-F 8-4:30 please call [phone] If it is after 5:00PM on a weekday or a weekend and it is of an urgent nature please call [phone] and ask for the on-call orthopaedic resident. Call if: You have a fever greater than 101 F or experience chills Increased drainage from incision Redness or extreme swelling around incision Increased pain or change in pain that is not controlled with elevation, ice and your pain medication. Any questions concerns related to surgery Future Appointments Date Time Provider Department Center 02/12/2022 10:20 AM Nusrat Saleem PA [facility] [place] [facility] [facility] 02/25/2022 9:10 AM [facility] MR 6 MH MRI [facility] Rad 02/25/2022 11:00 AM Julián Sawyer PA [facility] [id number] documented in this encounter Medications at Time of Discharge Medication Sig Dispensed Refills Start Date End Date traMADoL (Ultram) 50 mg Tablet Take 1 [...] TABLET FOR 09/26/2021 SUMAtriptan (IMITREX) 20 mg/actuation [place], Non-Aerosol as needed. 01/23/2022 escitalopram (Lexapro) 10 [...] as of this encounter Progress Notes * Tennille Mccoy RN - 01/31/2022 11:32 AM EDT Discharge instructions and medications reviewed with patient and his sister. All questions answeredand written copy of instructions was sent home with patient. Patient ambulated to car for dischargeaccompanied by [facility] staff member. documented in this encounter H&P Notes * Robert Gant MD - 01/31/2022 10:13 AM EDT The patient's history and physical exam have been reviewed and completed. There has been no interval change from that of the pre-operative history and physical exam done within the last 30 days. CV: RRR Lungs: CTAB documented in this encounter Miscellaneous Notes * Op Note - Kamille Kinney MD - 01/31/2022 10:31 AM EDT [facility] [place] Patient Name: Joe Garcia : [id number] MR#: [id number] Case Date: 01/31/2022 Surgeon: Surgeon(s) and Role: * Kamille Kinney MD - Primary * Robert Gant MD - Resident PREOPERATIVE DIAGNOSIS: Right carpal tunnel syndrome. POSTOPERATIVE DIAGNOSIS: Right carpal tunnel syndrome. PROCEDURE PERFORMED: Endoscopic right carpal tunnel decompression. ANESTHESIA: Local with sedation. OPERATIVE INDICATION: The patient is a 56 y.o.-year-old Male with EMG proven right carpal syndrome.It was refractory to conservative treatment. He was brought to the operating room for endoscopic right carpal tunnel decompression. SUMMARY OF PROCEDURE: After 2 gm of intravenous cefazolin was administered, the patient's right upper extremity was prepped with Hibiclens scrub and ChloraPrep. His right arm was draped in a sterile fashion. A preoperative time-out was performed as per [facility] protocol. 7mL of 2% lidocaine was injected over the median nerve at the level of the wrist as well as over the palmar side of the patient's right hand. His right arm was then exsanguinated with an Esmarch bandage. A brachial tourniquet was inflated to 235 mmHg. A transverse incision was made at the palmar wrist crease in line with the ring finger ray. Subcutaneous spreading was performed in a blunt fashion down to the level of the investing fascia of the palmar surface of the forearm. Throughout this dissection, care was taken to avoid injury to subcutaneous neurovascular structures. The investing fascia was incised. It was elevated as a distally based flap which allowed for entry into the carpal tunnel. A synovial elevator was then used to dissect synovium from the undersurface of the transverse carpal ligament. Small and large hamate finders were inserted into the carpal tunnel to confirm the proper level of entry. The MicroAire endoscopic carpal tunnel release device was inserted into the carpaltunnel. It was passed distally until the distal edge of the transverse carpal ligament was well visualized. The blade was elevated. The device was withdrawn, transecting the transverse carpal ligament. The device was reinserted and complete release of the transverse carpal ligament was confirmed. Under direct vision, the investing fascia at of the palmar surface of forearm was released well proximal to the wrist incision site using tenotomy scissors. The incision was irrigated and was closed with 4-0 nylon suture. A sterile soft dressing was applied. The tourniquet was released with a total tourniquet time of 5 minutes. All digits rapidly became pink and warm with brisk capillary refill. He was then transferred to the recovery room in stable condition. Estimated blood loss was minimal.IV fluid replacement was 600 mL of crystalloid. He tolerated the procedure well without apparent complications. Attestation: Case Date: 01/31/2022 I was present and I participated during the entire procedure (does not need to include opening and closing). KAMILLE KINNEY MD 01/31/2022 * Brief Op Note - Kamille Kinney MD - 01/31/2022 10:19 AM EDT Brief Operative Note Patient Name: Joe Garcia : [id number] MR#: [id number] Case Date: 01/31/2022 Surgeon: Surgeon(s) and Role: * Kamille Kinney MD - Primary * Robert Gant MD - Resident Preoperative diagnosis: Right carpal tunnel syndrome Postoperative diagnosis: Right carpal tunnel syndrome Procedure(s) (LRB): ENDOSCOPY WRIST W/ RELEASE TRANSVERSE CARPAL LIGAMENT (WRVU 6.39) (Right) Anesthesia: MAC Complications: None Intake: 600cc crystalloid Output: Estimated Blood Loss: None Drains: None Specimens removed during surgery: None Disposition: aroused from sedation, and taken to the recovery room in a stable condition Condition: doing well without problems Attestation: Case Date: 01/31/2022 I was present and I participated during the entire procedure (does not need to include opening and closing). documented in this encounter Plan of Treatment Not on file documented as of this encounter Procedures Procedure Name Priority Date/Time Associated Diagnosis Comments Endoscopic Wrist Surg Release Transverse Carpal Ligament (33252) 01/31/2022 10:23 AM EDT Median nerve neuropathy, unspecified laterality ARTHROSCOPY WRIST W/ RELEASE TRANSVERSE CARPAL LIGAMENT Routine 01/31/2022 9:24 AM EDT Median nerve neuropathy, unspecified laterality documented in this encounter Visit Diagnoses Diagnosis Median nerve neuropathy, unspecified laterality Median nerve neuropathy, unspecified laterality documented in this encounter Administered Medications Inactive Administered Medications - up to 3 most recent administrations Medication Order MAR Action Action Date Dose Rate Site acetaminophen (Tylenol) tablet 975 mg 975 mg, Oral, ONCE, 1 dose, On Thu01/31/22 at 1015, Maximum dose of acetaminophen is 4000 mg from all sources in 24 hours. When ordered for pain, acetaminophen should be given even when other ordered pain medications are indicated. , Routine Given 01/31/2022 9:52 AM EDT 975 mg ketorolac (Toradol) (30 mg/mL) injection 15 mg 15 mg, Intravenous, EVERY 6 HOURS PRN, Starting on Thu01/31/22 at 1015, Until Thu01/31/22 at 1402, Pain, Routine lactated ringers infusion 1,000 mL, at 100 mL/hr, Intravenous, CONTINUOUS, Starting on Thu01/31/22 at 0945, Until Thu01/31/22 at 1132, Day of Surgery (Day of Procedure) New Bag 01/31/2022 9:49 AM EDT 1,000 mLs 100 mL/hr lidocaine (pf) (Xylocaine) (20 mg/mL) 2% injection ONCE PRN, Starting on Thu01/31/22 at 1031, Until Thu01/31/22 at 1402, Intra-Operative (Intra-Procedure), Routine Given 01/31/2022 10:31 AM EDT 7 mLs 19- Surgical Site traMADoL (Ultram) tablet 50 mg 50 mg, Oral, EVERY 6 HOURS PRN, Starting on Thu01/31/22 at 1015, Until Thu01/31/22 at 1402, Pain, Routine documented in this encounter Active and Recently Administered Medications Times are shown in EDT. Scheduled Medication Order 01/29/2022 01/30/2022 01/31/2022 acetaminophen (Tylenol) tablet 975 mg (COMPLETED) 975 mg, Oral, ONCE, 1 dose, On Thu01/31/22 at 1015, Maximum dose of acetaminophen is 4000 mg from all sources in 24 hours. When ordered for pain, acetaminophen should be given even when other ordered pain medications are indicated. , Routine 0952 (Given - Provid er: Kirti Reeder RN) Continuous Medication Order 01/29/2022 01/30/2022 01/31/2022 lactated ringers infusion (CANCELED) 1,000 mL, at 100 mL/hr, Intravenous, CONTINUOUS, Starting on Thu01/31/22 at 0945, Until Thu01/31/22 at 1132, Day of Surgery (Day of Procedure) 0949 (New Bag - Prov ider: Faby Valdez RN) PRN Medication Order 01/29/2022 01/30/2022 01/31/2022 ketorolac (Toradol) (30 mg/mL) injection 15 mg 15 mg, Intravenous, EVERY 6 HOURS PRN, Starting on Thu01/31/22 at 1015, Until Thu01/31/22 at 1402, Pain, Routine lidocaine (pf) (Xylocaine) (20 mg/mL) 2% injection (CANCELED) ONCE PRN, Starting on Thu01/31/22 at 1031, Until Thu01/31/22 at 1402, Intra-Operative (Intra-Procedure), Routine 1031 (Given - Provid er: Kamille Kinney MD) traMADoL (Ultram) tablet 50 mg 50 mg, Oral, EVERY 6 HOURS PRN, Starting on Thu01/31/22 at 1015, Until Thu01/31/22 at 1402, Pain, Routine documented in this encounter Care Teams Bar Catcher Relationship Specialty Start Date End Date Senthil Mitchell MD [address] [place] [address] [place] [address] PCP - General Family Medicine 12/23/21 06/01/22 documented as of this encounter
--- OUTSIDE RECORDS SUMMARY | 2024-07-07 11:43 | XMS_ITS | Encounter Summary ---
Author Organization [place] [address] Care Team Providers Care Composing Machine Operator Name Role Phone Kenia Devine MD Primary Care Provider [phone] Encounter Details Date Type Department Care Team (Late st Contact Info) Description 06/09/2022 [place] [phone] Dre Astorga RN Social History Tobacco Use Types Packs/Day [...] encounter Miscellaneous Notes * Telephone Encounter - Dre Astorga RN - 06/09/2022 12:22 PM EDT Patient calls the office leaving a message on the RN voicemail stating that he has been seen at [facility] six times over the last two weeks and is requesting an appointment with Maria Del Carmen Lutz APRN. Returned call to patient to discuss above, was unable to reach patient by phone, left generic message on voicemail to call the office at his convenience. documented in this encounter Plan of Treatment Not on file documented as of this encounter Visit Diagnoses Not on filedocumented in this encounter Care Teams Composing Machine Operator Relationship Specialty Start Date End Date Kenia Devine MD [address] [place] [address] [place] [address] PCP - General Family Medicine 06/02/22 documented as of this encounter
--- OUTSIDE RECORDS SUMMARY | 2024-07-07 11:43 | XMS_ITS | Encounter Summary ---
Author Organization [facility] [place] [address] Care Team Providers Care Wagon Winder Name Role Phone Estefani Nicole MD Primary Care Provider + Encounter Details Date Type Department Care Team (Late st Contact Info) Description 12/19/2020 Telephone Gastroenterology at [facility] [place] [phone] Juan Jose Shook Social History Tobacco Use Types Packs/Day Years [...] encounter Miscellaneous Notes * Telephone Encounter - Juan Jose Shook - 12/19/2020 8:13 AM EST Joe Garcia [id number] Diagnosis/Indication: EUS 1. Have you ever had a/an Upper EUS before? No If yes, did you have any problems with the procedure? No What type of sedation was used: General Anesthesia 2. Do you take any Blood Thinners? No 3. Do you have a Pacemaker or Defibrillator device? No 4. Are you a diabetic? No 5. Do you have any Allergies to Eggs, Latex or Medications? Yes: See EDH 6. Do you take any Oral Iron Supplements (Including multi-vitamins)? Yes (Multivitamin) 7. Do you have a history of three or more abdominal surgeries? No 8. Have you had a problem with sedation or anesthesia? No 9. Do you have a c-pap machine or oxygen tank? Neither 10. Do you take prescription narcotic pain medications, including suboxone or methodone? No 11. Do you have a preference regarding the gender of your provider? No Preference 12. Is there any other information you would like to give us to aid in scheduling? No 13. Say to patient: You must have a responsible republican who will drive you to your procedure, stay oncampus for the entire duration of your procedure, and drive you home from your procedure? *Please Verify the height and weight, and adjust if height and/or weight have changed* Estimated body mass index is 33.26 kg/m?? as calculated from the following: Height as of 10/30/20: 177.8 cm (5' 10). Weight as of 10/30/20: 105.1 kg (231 lb 12.8 oz). *Delete if not needed* Height: 5'10 Weight: 231 BMI: 33.26 Age:55 y.o. documented in this encounter Plan of Treatment Not on file documented as of this encounter Visit Diagnoses Not on filedocumented in this encounter Care Teams Wagon Winder Relationship Specialty Start Date End Date Estefani Nicole MD [place] [address] PCP - General Family Medicine 10/19/19 12/22/21 documented as of this encounter
--- OUTSIDE RECORDS SUMMARY | 2024-07-07 11:43 | XMS_ITS | Encounter Summary ---
Author Organization [facility] [place] [address] Care Team Providers Care Brick Chimney Supervisor Name Role Phone Kenia Devine MD Primary Care Provider [phone] Encounter Details Date Type Department Care Team (Late st Contact Info) Description 04/27/2024 Telephone [place] [phone] Meghan Victoria, RN Social History Tobacco Use [...] Telephone Encounter - Meghan Victoria, RN - 04/27/2024 8:25 AM EDT I spoke with Joe. I gave him an update on the results of his labs. Aware and notified. Joe notified me that tomorrow he will be completing his PFTs. Instructed Joe to contact us with any questions and concerns. documented in this encounter Plan of Treatment Not on file documented as of this encounter Visit Diagnoses Not on filedocumented in this encounter Care Teams Brick Chimney Supervisor Relationship Specialty Start Date End Date Kenia Devine MD [address] [place] [address] [place] [address] PCP - General Family Medicine 06/02/22 documented as of this encounter
--- OUTSIDE RECORDS SUMMARY | 2024-07-07 11:43 | XMS_ITS | Encounter Summary ---
Author Organization [facility] [place] [address] Care Team Providers Care New Grad Rn Name Role Phone Estefani Nicole MD Primary Care Provider + Reason for Visit * Reason Onset Date Comments Reminder Appointment 02/11/2021 Encounter Details Date Type Department Care Team (Late st Contact Info) Description 02/11/2021 Telephone Neurosurgery at [facility] [place] [phone] Julián Sawyer PA [facility] [place] [address] [place] [address] Reminder Appointment Social History Tobacco Use Types Packs/Day Years [...] encounter Miscellaneous Notes * Telephone Encounter - Halley Lai CMA - 02/11/2021 11:41 AM EDT Unable to review medications and allergies prior to upcoming tele- appointment scheduled with Neurology provider. documented in this encounter Plan of Treatment Not on file documented as of this encounter Visit Diagnoses Not on filedocumented in this encounter Care Teams New Grad Rn Relationship Specialty Start Date End Date Estefani Nicole MD [address] [place] [address] PCP - General Family Medicine 10/19/19 12/22/21 documented as of this encounter
--- OUTSIDE RECORDS SUMMARY | 2024-07-07 11:43 | XMS_ITS | Encounter Summary ---
Author Organization [facility] [place] [address] Care Team Providers Care Assignment Desk Editor Name Role Phone Estefani Nicole MD Primary [...] Expiration Date Visits Re quested Visits Authorized [id number] 1 1 Encounter Details Date Type Department Care Team (Late st Contact Info) Description 01/09/2021 1:00 PM EST - 01/09/2021 2:15 PM EST [place] [id number] Zhen Carnes MD [facility] [place] [address] UPPER EUS- ENDOSCOPIC ULTRASOUND (WRVU 3.47) Social History Tobacco Use Types Packs/Day Years [...] Sign Reading Time Taken Comments Blood Pressure 129/59 01/09/2021 12:52 PM EST Pulse 89 01/09/2021 12:52 PM EST Temperature 36.4 ??C (97.5 ??F) 01/09/2021 11:[address] Respiratory Rate 16 01/09/2021 12:52 PM EST Oxygen Saturation 99% 01/09/2021 12:52 PM EST Inhaled Oxygen Concentration - - Weight - - Height - - Body Mass Index - - documented in this encounter Discharge Instructions * Discharge Instructions* Harmony Olguin, RN - 01/09/2021 1:01 PM EST Upper GI Endoscopy: What to Expect at Home Your Recovery You will be able to go home after your doctor or nurse checks to make sure you are not having any problems. You may have to stay overnight if you had treatment during the test. You may have a sore throat fora day or two after the test. This care sheet gives you a general idea about what to expect after the test. How can you care for yourself at home? Activity Rest when you feel tired. ?? You can do your normal activities when it feels okay to do so. Diet ?? Follow your doctor's directions for eating. ?? Unless your doctor has told you not to, drink plenty of fluids. This helps to replace the fluidsthat were lost during the prep. ?? Do not drink alcohol. Medicines ?? Your doctor will tell you if and when you can restart your medicines. He or she will also give you instructions about taking any new medicines. ?? If you take blood thinners, such as warfarin (Coumadin), clopidogrel (Plavix), or aspirin, be sure to talk to your doctor. He or she will tell you if and when to start taking those medicines again. Make sure that you understand exactly what your doctor wants you to do. ?? If polyps were removed or a biopsy was done during the test, your doctor may tell you not to take aspirin or other anti-inflammatory medicines for a few days. These include ibuprofen (Advil, Motrin) and naproxen (Aleve). ?? If you have a sore throat the day after the procedure, use an jwuh-vcu-cwnvcay spray to numb your throat. Sucking on throat lozenges and gargling with warm salt water may also help relieve your symptoms. Other instructions ?? For your safety, do not drive or operate machinery until the medicine wears off and you can think clearly. Your doctor may tell you not to drive or operate machinery until the day after your test. ?? Do not sign legal documents or make major decisions until the medicine wears off and you can think clearly. The anesthesia can make it hard for you to fully understand what you are agreeing to. Additional Information for Sedation Patients For patients who received sedation: ?? You may have received medications before and/or during your procedure which effects your judgement and reaction time. ?? Do not drive, operate machinery, drink alcoholic beverages or make important decisions for 24 hours. ?? Be careful on stairs as you may be unsteady on your feet. ?? You may eat a regular diet as tolerated. ?? Do not smoke if you are alone. ?? IV site: Slight redness or tenderness is normal, you can use a warm compress if you would like. If tenderness and/or redness increase or if foul drainage occurs, please contact your Doctor. Please call [phone] before 8pm Mon-Fri with problems, questions or concerns. If you call after 8pm or on weekends, call the Hospital at [phone] and ask to speak to the Structured Cabling Technician brazer helper induction and the drawing operator will contact that person for you. When should you call for help? Call [phone] anytime you think you may need emergency care. For example, call if: ?? You passed out (lost consciousness). ?? You pass maroon or bloody stools. ?? You have trouble breathing. Call your doctor now or seek immediate medical care if: ?? You have pain that does not get better after you take pain medicine. ?? You are sick to your stomach or cannot drink fluids. ?? You have new or worse belly pain. ?? You have blood in your stools. ?? You have a fever. ?? You cannot pass stools or gas. Watch closely for changes in your health, and be sure to contact your doctor if you have any problems. Where can you learn more? [facility] View your After Visit Summary and more online at [email or web address] If you would like to provide feedback about your hospital experience, please call the Office of Patient and Family Relations at . If you have received this After Visit Summary in error, please immediately return it in person to the department, or notify the [facility] Privacy Office by calling toll free at between the hours of 8AM and 5PM to arrange for our retrieval of the documents at no cost to you. Content Version: 12.2 ?? 9410-8811 amcure. Care instructions adapted under license by [facility]. If you have questions about a medical condition or this instruction, always ask your healthcare professional. [employer] disclaims any warranty or liability for your use of this information.Endoscopic Ultrasound (Rectal): What to Expect at Home Your Recovery After you have a rectal endoscopic ultrasound--a test to find problems in your lower gastrointestinal tract--you will stay at the hospital or clinic for 1 to 2 hours. This will allow the medicine to wear off. You will be able to go home after your doctor or nurse checks to make sure you are not having any problems. After the test, you may be bloated or have gas pains. You may need to pass gas. If a biopsy was done, you may have streaks of blood in your stool (feces) for a few days. This care sheet gives you a general idea about how long it will take for you to recover. But each person recovers at a different pace. Follow the steps below to feel better as quickly as possible. How can you care for yourself at home? Activity Rest when you feel tired. ?? You can do your normal activities when it feels okay to do so. Diet ?? Follow your doctor's directions for eating. ?? Unless your doctor has told you not to, drink plenty of fluids. This helps to replace the fluidsthat were lost during the colon prep. ?? Do not drink alcohol. Medicines ?? Your doctor will tell you if and when you can restart your medicines. He or she will also give you instructions about taking any new medicines. ?? If you take blood thinners, such as warfarin (Coumadin), clopidogrel (Plavix), or aspirin, be sure to talk to your doctor. He or she will tell you if and when to start taking those medicines again. Make sure that you understand exactly what your doctor wants you to do. ?? If a biopsy was done during the test, your doctor may tell you not to take aspirin or other anti-inflammatory medicines for a few days. These include ibuprofen (Advil, Motrin) and naproxen (Aleve). Other instructions ?? For your safety, do not drive or operate machinery until the medicine wears off and you can think clearly. Your doctor may tell you not to drive or operate machinery until the day after your test. ?? Do not sign legal documents or make major decisions until the medicine wears off and you can think clearly. The anesthesia can make it hard for you to fully understand what you are agreeing to. Additional Information for Sedation Patients For patients who received sedation: ?? You may have received medications before and/or during your procedure which effects your judgement and reaction time. ?? Do not drive, operate machinery, drink alcoholic beverages or make important decisions for 24 hours. ?? Be careful on stairs as you may be unsteady on your feet. ?? You may eat a regular diet as tolerated. ?? Do not smoke if you are alone. ?? IV site: Slight redness or tenderness is normal, you can use a warm compress if you would like. If tenderness and/or redness increase or if foul drainage occurs, please contact your Doctor. Please call [phone] before 8pm Mon-Fri with problems, questions or concerns. If you call after 8pm or on weekends, call the Hospital at [phone] and ask to speak to the Structured Cabling Technician brazer helper induction and the drawing operator will contact that person for you. When should you call for help? Call [phone] anytime you think you may need emergency care. For example, call if: ?? You passed out (lost consciousness). ?? You pass maroon or bloody stools. ?? You have trouble breathing. Call your doctor now or seek immediate medical care if: ?? You have pain that does not get better after you take pain medicine. ?? You are sick to your stomach or cannot drink fluids. ?? You have new or worse belly pain. ?? You have blood in your stools. ?? You have a fever. ?? You cannot pass stools or gas. Watch closely for changes in your health, and be sure to contact your doctor if you have any problems. Where can you learn more? [facility] View your After Visit Summary and more online at [email or web address] If you would like to provide feedback about your hospital experience, please call the Office of Patient and Family Relations at . If you have received this After Visit Summary in error, please immediately return it in person to the department, or notify the [facility] Privacy Office by calling toll free at between the hours of 8AM and 5PM to arrange for our retrieval of the documents at no cost to you. Content Version: 12.2 ?? 8841-1396 amcure. Care instructions adapted under license by [facility]. If you have questions about a medical condition or this instruction, always ask your healthcare professional. [employer] disclaims any warranty or liability for your use of this information. * Patient Instructions* Zhen Carnes MD - 01/09/2021 12:46 PM EST Please see Recommendations in the Provation procedure report which is documented in the procedural note in [facility]. documented in this encounter Medications at Time [...] 04/14/2018 01/21/2022 documented as of this encounter H&P Notes * Tesha Carmona MD - 01/09/2021 12:01 PM EST Patient Name: Joe Garcia Patient Age: 55 y.o. Birthdate: 1965 Admit date: 01/09/2021 Attending Physician: Zhen Carnes MD PROBLEM LIST There is no problem list on file for this patient. HISTORY OF PRESENT ILLNESS Joe Garcia is a 55 y.o. with hx of cyclical vomiting who presents for EGD/EUS for evaluation of pancreas as well as any other etiology of vomiting. MEDICATIONS No current facility-administered medications on file prior to encounter. Current Outpatient Medications on File Prior to Encounter Medication Sig Dispense Refill ??? amitriptyline (Elavil) 10 mg Tablet Take 10 mg by mouth nightly. ??? prochlorperazine (Compazine) 10 mg Tablet Take [...] 100 mg Tablet 50 mg. 0 ??? melatonin 5 mg Tablet Take 10 mg by mouth nightly. ??? prochlorperazine (Compazine) [address] 25 mg rectally every 12 hours as needed for Nausea. ??? budesonide-formoteroL (SYMBICORT) 80-4.5 mcg/actuation HFA Aerosol Inhaler Inhale into the lungs as needed. ??? [DISCONTINUED] LORazepam (Ativan) 1 mg Tablet Take 1 mg by mouth as needed for Anxiety. ??? [DISCONTINUED] metoclopramide (REGLAN) 5 mg Tablet Take 5 mg by mouth as needed. ??? PROAIR HFA 90 mcg/actuation HFA Aerosol Inhaler INHALE 2 PUFFS EVERY 4 HOURS 0 ??? EPINEPHrine (ADRENALIN) 0.1 mg/mL (1:10,000) Syringe Inject as directed. ??? [DISCONTINUED] ARIPiprazole (ABILIFY) 5 mg Tablet 15 mg. 0 PHYSICAL EXAM: Blood pressure 122/84, pulse (!) 102, temperature 36.4 ??C (97.5 ??F), temperature source Temporal,resp. rate 18, SpO2 99 %. GEN: Alert, cooperative. Pleasant. In NAD MP I ASA II HEENT: NCAT. Neck supple. LUNGS: breathing comfortably on RA ABD: soft, NT/ND RECENT LABS No results found for this or any previous visit (from the past 24 hour(s)). ASSESSMENT AND PLAN Joe Garcia is a 55 y.o. y/o who presents for endoscopic evaluation. Risks extensively discussed including bleeding, infection, reaction to anesthesia, perforation, pancreatitis (if applicable), bile duct injury (if applicable), missing a cancer (if applicable) and/or other unforseen complication. Consent signed and patient well informed of the risks of the procedure. documented in this encounter Miscellaneous Notes * Op Note - Zhen Carnes MD - 01/09/2021 12:30 PM EST [facility] [place]ative [place] Patient Name: Joe Garcia : [id number] MR#: [id number] Case Date: 01/09/2021 Surgeon: Surgeon(s) and Role: * Zhen Carnes MD - Primary * Tesha Carmona MD - Fellow Preoperative diagnosis: EUS to evaluate for pancreatic lesions in setting of CVS without identifiedetiology Coordinated with Brain MRI 01/09 Postoperative diagnosis: * No post-op diagnosis entered * Procedure(s) (LRB): UPPER EUS- ENDOSCOPIC ULTRASOUND (N/A) Anesthesia: MAC Full procedure note is documented under the Procedure section of [facility]. documented in this encounter Plan of Treatment Not on file documented as of this encounter Procedures Procedure Name Priority Date/Time Associated Diagnosis Comments Endoscopic Us Exam, Susan ([id number]) 01/09/2021 12:22 PM EST EUS to evaluate for pancreatic lesions in setting of CVS without identified etiology Coordinated with Brain MRI 01/09 UPPER EUS-ENDOSCOPIC ULTRASOUND Routine 01/09/2021 12:11 PM EST documented in this encounter Results * UPPER EUS-ENDOSCOPIC ULTRASOUND (01/09/2021 12:11 PM EST) UPPER ENDOSCOPIC ULTRASOUND [facility] Endoscopy Procedure Date: 01/09/2021 12:11 PM ? Patient Name: Joe Garcia ? Date of : 1965 ? Age: 55 ? Order #: [id number] ? Instrument Name: [id number][id number] ? Procedure: ? Upper EUS Indications: ? Cyclic vomiting syndrome Providers: ? Zhen Carnes MD, Tesha Carmona, ? Evelyn Ramirez RN, Júnior Cadena ? Jose Manuel Schmidt MD: ?Maria Del Carmen Louie ? [place] Medicines: ? Propofol per Anesthesia Complications: ? No immediate complications. Procedure: ? Pre-Anesthesia Assessment: ? - Prior to the procedure, a History ? and Physical was performed, and ? patient medications, allergies and ? sensitivities were reviewed. The ? patient's tolerance of previous ? anesthesia was reviewed. ? - The risks and benefits of the ? procedure and the sedation options ? and risks were discussed with the ? patient. All questions were answered ? and informed consent was obtained. ? - ASA Grade Assessment: II - A ? patient with mild systemic disease. ? - Using IV propofol under the ? supervision of an anesthesiologist ? was determined to be medically ? necessary for this procedure based on ? complex procedure (ERCP, EUS). ? The procedure, indications, benefits, ? risks and alternatives were explained ? to the patient. Specifically ? discussed were potential ? complications including, but not ? limited to, bleeding, perforation, ? infection, missing a cancer, and ? adverse medication reactions.The ? Endosonoscope was introduced through ? the mouth, and advanced to the second ? part of duodenum. The Endoscope was ? introduced through the mouth, and ? advanced to the second part of ? duodenum. The patient tolerated the ? procedure well. ? Findings: ? ENDOSCOPIC FINDING: : ? The examined esophagus was endoscopically normal. ? The Z-line was regular and was found 39 cm from the ? incisors. ? A 3 cm hiatal hernia was present. ? Multiple small sessile polyps were found in the ? gastric fundus and in the gastric body. ? Otherwise normal stomach including retroflex view of ? cardia and fundus. ? The examined duodenum was endoscopically normal. ? ENDOSONOGRAPHIC FINDING: : ? The esophagus, stomach and duodenum were visualized ? endosonographically. ? There was no sign of significant endosonographic ? abnormality in the common bile duct. The maximum ? diameter of the duct was 4 mm. ? One stone was visualized endosonographically in the ? gallbladder body. The stone measured 3 mm in greatest ? dimension. The stone was round. It was hyperechoic ? and characterized by shadowing. ? There was no sign of significant endosonographic ? abnormality in the entire pancreas. ? There was an 8 mm benign appearing cyst in the medial ? aspect of the left lobe of the liver. Normal ? visualized portion of liver (limited exam). ? No lymphadenopathy seen. ? Moderate Sedation: ? Not applicable - See Anesthesia documentation Impression: ?- Normal esophagus. ? - Small hiatal hernia. ? - Multiple benign appearing fundic ? gland gastric polyps. ? - Normal examined duodenum. ? - There was no sign of significant ? pathology in the common bile duct. ? - One small stone was visualized ? endosonographically in the ? gallbladder. ? - There was no sign of significant ? pathology in the entire pancreas. ? - Small, benign liver cyst. ? - No specimens collected. Recommendation: ?- Observe patient's clinical course. ? - F/up in GI Clinic. ? Attending Participation: ? I personally performed the entire procedure. ? Zhen Carnes MD 01/09/2021 12:56:43 PM This report has been signed electronically. Number of Addenda: 0 Note Initiated On: 01/09/2021 12:11 PM PROVATION 01/09/2021 12:1 1 PM EST Estefani Nicole MD GENERAL SURGICAL ORDERABLES PROVATION documented in this encounter Visit Diagnoses Not on filedocumented in this encounter Administered Medications Inactive Administered Medications - up to 3 most recent administrations Medication Order MAR Action Action Date Dose Rate Site lactated ringers infusion 100 mL/hr, Intravenous, CONTINUOUS, Starting on Thu01/09/21 at 1215, Until Thu01/09/21 at 1602, Endoscopy (Day of Procedure) New Bag 01/09/2021 12:04 PM EST 100 mL/hr 100 mL/hr documented in this encounter Active and Recently Administered Medications Times are shown in EST. Continuous Medication Order 01/07/2021 01/08/2021 01/09/2021 lactated ringers infusion 100 mL/hr, Intravenous, CONTINUOUS, Starting on Thu01/09/21 at 1215, Until Thu01/09/21 at 1602, Endoscopy (Day of Procedure) 1204 (New Bag - Prov ider: Blayne Casillas RN) documented in this encounter Care Teams Assignment Desk Editor Relationship Specialty Start Date End Date Estefani Nicole MD [address] [place] [id number] PCP - General Family Medicine 10/19/19 12/22/21 documented as of this encounter
--- OUTSIDE RECORDS SUMMARY | 2024-07-07 11:43 | XMS_ITS | Encounter Summary ---
[facility] [place] [address] Care Team Providers Care Financial Analyst Name Role Phone Kenia Devine MD Primary Care Provider [phone] Encounter Details Date Type Department Care Team (Latest Contact Info) Description 04/21/2024 Travel Social History Tobacco Use Types Packs/Day [...] on filedocumented in this encounter Care Teams Financial Analyst Relationship Specialty Start Date End Date Kenia Devine MD [address] [place] [address] [place] [address] PCP - General Family Medicine 06/02/22 documented as of this encounter
--- OUTSIDE RECORDS SUMMARY | 2024-07-07 11:43 | XMS_ITS | Encounter Summary ---
[place] [address] Care Team Providers Care Transport Company Manager Name Role Phone Kenia Devine MD Primary Care Provider [phone] Encounter Details Date Type Department Care Team (Late st Contact Info) Description 04/20/2023 Ancillary Procedure [place] [address] Kenia Devine MD [address] [place] [id number] Social History Tobacco Use Types Packs/Day [...] FILM LIBRARY STORAGE ONLY CT CHEST Routine 04/20/2023 12:00 AM EDT documented in this encounter Results * Film Library- Storage Only CT Chest (04/20/2023 12:00 AM EDT) Narrative [facility] - 02/26/2024 11:00 AM EDT This exam is auto-finalizing. It's purpose is for storage only. Kenia Devine MD IMG FILM LIBRARY OR DERABLES [place], [place] documented in this encounter Visit Diagnoses Not on filedocumented in this encounter Care Teams Transport Company Manager Relationship Specialty Start Date End Date Kenia Devine MD [address] [place] [address] [place] [address] PCP - General Family Medicine 06/02/22 documented as of this encounter
--- OUTSIDE RECORDS SUMMARY | 2024-07-07 11:43 | XMS_ITS | Encounter Summary ---
Author Organization [facility] [place] [address] Care Team Providers Care Sofa Cover Inspector Name Role Phone Kenia Devine MD Primary Care Provider [phone] Encounter Details Date Type Department Care Team (Late st Contact Info) Description 04/22/2024 Telephone [place] [phone] Meghan Victoria, RN Social History Tobacco Use [...] Telephone Encounter - Meghan Victoria, RN - 04/22/2024 9:51 AM EDT Spoke with Joe and gave him an update on the results of his labs. I also instructed him that [facility] have one lab result pending and we will update him at a later time! Joe told me he is scheduled for his PFTs at [facility] on the documented in this encounter Plan of Treatment Not on file documented as of this encounter Visit Diagnoses Not on filedocumented in this encounter Care Teams Sofa Cover Inspector Relationship Specialty Start Date End Date Kenia Devine MD [address] [place] [address] [place] [address] PCP - General Family Medicine 06/02/22 documented as of this encounter
--- OUTSIDE RECORDS SUMMARY | 2024-07-07 11:43 | XMS_ITS | Encounter Summary ---
[place] [address] Care Team Providers Care Streetcar Conductor Name Role Phone Kenia Devine MD Primary Care Provider [phone] Reason for Referral * Allergy Testing (Routine) - Closed Specialty Diagnoses / Procedures Referred By Dasia phelps Referred To Contact Diagnoses Vomiting, unspecified vomiting type, unspecified whether nausea present Maria Del Carmen Lutz APRN [address] [place] [address] Referral ID Status Reason Start Date Expiration Date V isits Requested Visits Authorized [id number] Closed Consult, Test & Treat 07/16/2022 01/12/2023 1 1 Encounter Details Date Type Department Care Team (Late st Contact Info) Description 07/16/2022 Orders [place] [address] Maria Del Carmen Lutz APRN [address] [place] [address] Vomiting, unspecified vomiting type, unspecified whether nausea present Social History Tobacco Use Types Packs/Day Years Used Date Smoking Tobacco: Never Smokeless Tobacco: Never Alcohol Use Standard Drinks/Week Comments Not Currently 0 (1 standard drink = 0.6 oz pur e alcohol) Sex and Gender Information Value Date Recorded Sex Assigned at Not on file Gender Identity Not on file Sexual Orientation Not on file documented as of this encounter Plan of Treatment Scheduled Referrals Name Type Priority Associated Diagnoses Orde r Schedule Referral to Allergy Outpatient Referral Routine Vomiting, Unspecified Vomiting Type, Unspecified Whether Nausea Present Ordered: 07/16/2022 documented as of this encounter Visit Diagnoses Diagnosis Vomiting, unspecified vomiting type, unspecified whether nausea present documented in this encounter Care Teams Streetcar Conductor Relationship Specialty Start Date End Date Kenia Devine MD [address] [place] [address] [place] [address] PCP - General Family Medicine 06/02/22 documented as of this encounter
--- OUTSIDE RECORDS SUMMARY | 2024-07-07 11:43 | XMS_ITS | Encounter Summary ---
Author Organization [facility] Address [facility] [place] [address] Care Team Providers Care Conveyor Loader Name Role Phone Senthil Mitchell MD Primary Care Provider + Encounter Details Date Type Department Care Team (Late st Contact Info) Description 01/03/2022 Telephone [place] [phone] Liliane Mishra MD [facility] DR [place] [address] Social History Tobacco Use Types Packs/Day Years [...] encounter Miscellaneous Notes * Telephone Encounter - Liliane Mishra MD - 01/03/2022 4:17 PM EST Images from the original note were not included. DIVISION OF GASTROENTEROLOGY & HEPATOLOGY TRANSFER C[facility] CALL Name: Joe Garcia Date: 01/03/2022 Time: 4:18 PM Referring Location: [facility] Referring Provider: Loli Mead MD 56 yo M with [facility] cyclic vomiting syndrome who follows at [facility] who presented to [facility] with persistent vomiting. He was recently seen there on 12/29 with vomiting and was sent home with anti-emetics. He continued to have vomiting since then and re-presented today with persistent vomiting. He has presented there multiple times in the past and usually will receive ativan, zofran, and benadryl. He is tachycardic today to 112 but otherwise HDS. His labs are unremarkable. Calling to see if he can be seensooner as an outpatient. Recommended continuing with anti-emetics and return to [facility] for clinic follow up. He has follow up with Maria Del Carmen Lutz on 01/14 and will see if we can get him in sooner if possible. This is not an official consult, as my recommendations are limited by my inability to interview andexamine the patient as well as personally review the medical record, imaging, and laboratory findings. Liliane Mishra MD Gastroenterology Fellow documented in this encounter Plan of Treatment Not on file documented as of this encounter Visit Diagnoses Not on filedocumented in this encounter Care Teams Conveyor Loader Relationship Specialty Start Date End Date Senthil Mitchell MD [address] [place] [address] [place] [address] PCP - General Family Medicine 12/23/21 06/01/22 documented as of this encounter
--- OUTSIDE RECORDS SUMMARY | 2024-07-07 11:43 | XMS_ITS | Encounter Summary ---
Author Organization [facility] Address [facility] [place] [address] Care Team Providers Care Product Demonstrator Name Role Phone Senthil Mitchell MD Primary Care Provider + Reason for Visit * Reason Comments Post Op 01-31-22 Right CTs Encounter Details Date Type Department Care Team (Late st Contact Info) Description 02/12/2022 10:20 AM EDT Office Visit [place] [address] Nusrat Saleem PA [facility] DR [place] [address] S/p R endoscopic CTS release 01/31/22 (Dr. Kinney) Social History Tobacco Use Types Packs/Day Years [...] Sign Reading Time Taken Comments Blood Pressure 137/93 02/12/2022 10:11 AM EDT Pulse 129 02/12/2022 10:11 AM EDT Temperature - - Respiratory Rate - - Oxygen Saturation - - Inhaled Oxygen Concentration - - Weight 113.4 kg (250 lb) 02/12/2022 10:11 AM EDT Height 177.8 cm (5' 10) 02/12/2022 10:11 AM EDT Body Mass Index 35.87 02/12/2022 10:11 AM EDT documented in this encounter Progress Notes * Nusrat Saleem PA - 02/12/2022 10:20 AM EDT PATIENT NAME: Joe Garcia AGE: 56 y.o. MR#: [id number] DATE OF VISIT: 02/12/2022 DATE OF SURGERY: 01/31/2022 SURGERY DESCRIPTION: Endoscopic right carpal tunnel decompression. SURGEON: Dr. Kinney CHIEF COMPLAINT: 12 days S/P above procedure HISTORY OF PRESENT ILLNESS: Mr. Garcia is a 56 y.o. male who presents 12 days s/p the above procedures for office follow up. He has been doing well since surgery. He is not having much pain at this point. He states he did not need to take any pain medication. He states he has noticed some occasionalnumbness in his right hand, but this has not been worsening. Mr. Garcia denies fever or chills. PHYSICAL EXAM: Mr. Garcia is a 56 y.o. male who is in no apparent distress, alert and cooperative. Inspection: His surgical incision appears to be healing without complication. There is no evidence of infection ROM/Strength: He is able to flex and extend all of his digits. Wrist range of motion remains grossly intact. He has noticed some pillar pain and also has some pain and weakness when attempting to lift heavier objects. Neurovascular: He reports intact sensation in the median distribution. Hand is well-perfused SURVEY RESPONSES: [facility] Surgical Postop Visit 02/12/2022 PROMIS-10 General Health Poor PROMIS-10 Quality of Life Fair PROMIS-10 Physical Health Poor PROMIS-10 Mental Health Poor PROMIS-10 Social Activity Poor PROMIS-10 Everyday Activities Mostly PROMIS-10 Pain 5 PROMIS-10 Fatigue Mild PROMIS-10 Social Roles Poor PROMIS-10 Anxious or Depressed Often PROMIS PHYSICAL HEALTH SCORE 39.8 PROMIS MENTAL HEALTH SCORE 28.4 Problems with surgical incision/wound after surgery No Gone to ER since knee surgery No Admitted to hospital since recent ortho surgery No Additional surgery on same body part No Satisfaction with Treatment Satisfied Choose Same Treatment Again Definitely yes Employment status before injury On leave of absence Returned to previous employment No Spending time in inpatient rehab facility No Rate overall condition today 3 [facility] Response 12/23/2021 NICOLE-RIGHT HAND PAIN 2.27 NICOLE-LEFT HAND PAIN Incomplete ASSESSMENT: 12 days s/p above procedure PLAN: The patient's sutures were removed today and Steri-strips were applied without complication. Now that his suture has been removed, he may continue with ROM and gradual return to activity. He may shower and get the incision wet. He was instructed to perform scar massage over the incision. If the patient feels that he is having difficulty with pain or stiffness, we will refer him for formal hand therapy as needed. 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 He will contact us if he feels that he is not ready to return as he approaches this date. He states he also has had similar symptoms in his left hand, but not as severe. He will contact us if he would like to have his right hand addressed in the future. The patient understands to contact us if he has any other questions or concerns. The patient will follow up as needed. The above documentation was completed using [employer] voice recognition software. documented in this encounter Plan of Treatment Not on file documented as of this encounter Visit Diagnoses Diagnosis S/p R endoscopic CTS release 01/31/22 (Dr. Kinney) Carpal tunnel syndrome documented in this encounter Care Teams Product Demonstrator Relationship Specialty Start Date End Date Senthil Mitchell MD [address] [place] [address] [place] [address] PCP - General Family Medicine 12/23/21 06/01/22 documented as of this encounter
--- OUTSIDE RECORDS SUMMARY | 2024-07-07 11:43 | XMS_ITS | Encounter Summary ---
[place] [address] Care Team Providers Care Milling Machine Tender Name Role Phone Senthil Mitchell MD Primary Care Provider + Reason for Referral * Diagnostic Test (Routine) - Closed Specialty Diagnoses / Procedures Referred By Dasia phelps Referred To Contact Radiology Diagnoses Intracranial arachnoid cysts Procedures MRI Brain wo Contrast Julián Sawyer PA [facility] [place] [address] [place] [address] Referral ID Status Reason Start Date Expiration Date V isits Requested Visits Authorized [id number] Closed Specialty Service Requested 02/18/2022 08/17/2022 1 1 Reason for Visit * Diagnostic Test (Routine) - Closed Specialty Diagnoses / Procedures Referred By Contac t Referred To Contact Radiology Diagnoses Intracranial arachnoid cysts Procedures MRI Brain wo Contrast Julián Sawyer PA [facility] [place] [address] [place] [address] Referral ID Status Reason Start Date Expiration Date V isits Requested Visits Authorized [id number] Closed Specialty Service Requested 02/18/2022 08/17/2022 1 1 Encounter Details Date Type Department Care Team (Latest Contact Info) Description 02/25/2022 8:37 AM EDT - 02/25/2022 11:59 PM EDT Hospital Encounter [facility] [place] [address] William Louis MD [facility] [place] [address] Intracranial arachnoid cysts Discharge Disposition: Home Social History Tobacco Use [...] TABLET FOR 09/26/2021 SUMAtriptan (IMITREX) 20 mg/actuation [place], Non-Aerosol as needed. 01/23/2022 escitalopram (Lexapro) 10 [...] Priority Date/Time Associated Diagnosis Comments MRI BRAIN WO CONTRAST Routine 02/25/2022 10:09 AM EDT Intracranial arachnoid cysts documented in this encounter Results * MRI Brain wo [...] who have questions please contact the health care management coordinator that requested your imaging first. ? Narrative 02/25/2022 12:48 PM EDT EXAMINATION: MRI [...] patients who have questions please contactthe health care management coordinator that requested your imaging first. William Louis MD IMG MRI ORDERABLES documented in this encounter Visit Diagnoses Diagnosis Intracranial arachnoid cysts Cerebral cysts documented in this encounter Care Teams Milling Machine Tender Relationship Specialty Start Date End Date Senthil Mitchell MD [address] [place] [address] [place] [address] PCP - General Family Medicine 12/23/21 06/01/22 documented as of this encounter
--- OUTSIDE RECORDS SUMMARY | 2024-07-07 11:43 | XMS_ITS | Encounter Summary ---
Author Organization [facility] Address [facility] [place] [address] Care Team Providers Care Tools And Parts Attendant Name Role Phone Senthil Mitchell MD Primary Care Provider + Reason for Visit * Reason Comments Pre-op Exam 01-31-22 Right CTS Encounter Details Date Type Department Care Team (Late st Contact Info) Description 01/27/2022 8:10 AM EDT Office Visit [place] [address] Long Kinney MD [facility] [place] [address] Carpal tunnel syndrome on right Social History Tobacco Use Types Packs/Day Years [...] Sign Reading Time Taken Comments Blood Pressure 139/91 01/27/2022 8:04 AM EDT Pulse 96 01/27/2022 8:04 AM EDT Temperature - - Respiratory Rate - - Oxygen Saturation - - Inhaled Oxygen Concentration - - Weight 113.4 kg (250 lb) 01/27/2022 8:04 AM EDT Height 177.8 cm (5' 10) 01/27/2022 8:04 AM EDT Body Mass Index 35.87 01/27/2022 8:04 AM EDT documented in this encounter Progress Notes * Long Kinney MD - 01/27/2022 8:10 AM EDT Joe Garcia presents for preoperative visit. He has EMG proven bilateral carpal tunnel syndrome, more symptomatic on the right than on the left. He also symptoms consistent with focal dystonia bilaterally as well as palmar pain over the palmar central portion of both wrists. He does have cervical radiculopathy at C5-C6 based on his electrodiagnostic studies. He does not have any neck symptoms. He does have a nonlocalized ulnar neuropathy with no symptoms. He is seeing me to discuss a right carpal tunnel release which is scheduled to be done later this week. Exam reveals a pleasant alert male in no apparent. He has no thenar weakness or atrophy. I cannot demonstrate any evidence of focal dystonia on clinical exam today. He has no digital triggers. His Phalen's test is positive bilaterally. His Tinel test is positive over the median nerves at the carpaltunnels bilaterally. His hands have diminished sensation in the median distribution digits bilaterally to light touch. He has no ulnar nerve symptoms or findings on clinical examination. I reviewed the circumstances with the patient. He has potential double crush with both his carpal tunnel and neck but his neck does not seem to be a significant component of his symptoms. He also hassome degree of focal dystonia in his hands. I suggested that his focal dystonia will not be reliably helped by carpal tunnel decompression. I also did talk to him about the option of corticosteroid injection to his right carpal tunnel but he would prefer to treat this more definitively with carpal tunnel decompression. He is aware that his carpal tunnel release will likely be done endoscopically although an open decompression may need to be done. He is aware that with such surgery there are potential risks which include but are not limited to infection, neurovascular or tendon injury, incomplete or no relief of neurogenic symptoms,pillar pain, welder journeyman weakness, recurrence of carpal tunnel syndrome, and persistence of focal dystonias. His questions were solicited and answered and he is confident that he would prefer to proceed with surgical management for this scheduled to be done later this week. * Emily Aviles RN - 01/27/2022 8:10 AM EDT Pre op teaching done for endoscopic carpal tunnel release. Emphasis placed on post op hand elevation with hand above heart,fingers above palm,palm above wrist and wrist above elbow. Discussed importance of flexing fingers against original dressing.Take dressing off on day 3 and fully flex and extend fingers.Place Band-Aid over suture,no ointments. Reviewed suggestions for takingpost op pain medication. Questions solicited and answered to patient satisfaction. Written material provided. Patient knows to call with any additional questions or concerns. documented in this encounter Plan of Treatment Not on file documented as of this encounter Visit Diagnoses Diagnosis Carpal tunnel syndrome on right Carpal tunnel syndrome documented in this encounter Care Teams Tools And Parts Attendant Relationship Specialty Start Date End Date Senthil Mitchell MD [address] [place] [address] [place] [address] PCP - General Family Medicine 12/23/21 06/01/22 documented as of this encounter
--- OUTSIDE RECORDS SUMMARY | 2024-07-07 11:43 | XMS_ITS | Encounter Summary ---
Author Organization [facility] [place] [address] Care Team Providers Care Travel Agent Name Role Phone Kenia Devine MD Primary Care Provider [phone] Encounter Details Date Type Department Care Team (Late st Contact Info) Description 05/27/2022 Telephone [place] [phone] Juan J Campbell RN Social History Tobacco Use Types Packs/Day [...] Miscellaneous Notes * Telephone Encounter - Juan J Campbell RN - 05/27/2022 4:08 PM EDT TC from pt who leaves vm requesting call back. Pt would like to let his new PCP know of medication that Maria Del Carmen Lutz APRN, had recommended, aprepitant. Called pt and left message requesting that pt return call to office. Msg left on pt identified voice mail. documented in this encounter Plan of Treatment Not on file documented as of this encounter Visit Diagnoses Not on filedocumented in this encounter Care Teams Travel Agent Relationship Specialty Start Date End Date Kenia Devine MD [address] [place] [address] [address] [place] [id number] PCP - General Family Medicine 06/02/22 documented as of this encounter
--- OUTSIDE RECORDS SUMMARY | 2024-07-07 11:43 | XMS_ITS | Encounter Summary ---
Author Organization [facility] Address [facility] [place] [address] Care Team Providers Care Global Chief Experience Officer Name Role Phone Senthil Mitchell MD Primary Care Provider + Reason for Visit * Reason Comments Establish Care BILAT CTS * Consultation (Routine) - Closed Specialty Diagnoses / Procedures Referred By Dasia phelps Referred To Contact Orthopaedics Diagnoses Bilateral carpal tunnel syndrome Jerome Motley MD [address] [place] [id number] [facility] [address] [place] [address] Referral ID Status Reason Start Date Expiration Date V isits Requested Visits Authorized [id number] Closed Consult, [facility] PCP Updated and/or Approved 11/26/2021 11/26/2022 6 6 Encounter Details Date Type Department Care Team (Late st Contact Info) Description 12/23/2021 11:20 AM EST [place] [phone] Nusrat Saleem PA [facility] [place] [address] Cramping of hands; Median nerve neuropathy, unspecified laterality Social History Tobacco Use Types Packs/Day Years [...] Sign Reading Time Taken Comments Blood Pressure 131/91 12/23/2021 11:31 AM EST Pulse 106 12/23/2021 11:31 AM EST Temperature - - Respiratory Rate - - Oxygen Saturation - - Inhaled Oxygen Concentration - - Weight 113.4 kg (250 lb) 12/23/2021 11:31 AM EST Height 177.8 cm (5' 10) 12/23/2021 11:31 AM EST Body Mass Index 35.87 12/23/2021 11:31 AM EST documented in this encounter Progress Notes * Nusrat Saleem PA - 12/23/2021 11:20 AM EST PATIENT NAME: Joe Garcia AGE: 56 y.o. MR#: [id number] DATE OF VISIT: 12/23/2021 DATE OF INJURY/ONSET: Chronic STAFF: Dr. Kinney CHIEF COMPLAINT: R>L hand cramping HISTORY OF PRESENT ILLNESS: Mr. Garcia is an ambidextrous (primarily left hand dominant) 56 y.o. male who comes into clinic today for evaluation of the bilateral hands. He states his symptoms have been present for several years. He denies having any major trauma to his hands. He states that he has had cramping of his hands when performing activity and when this occurs the cramping is uncomfortable. There are no exact activities that bring on symptoms, but he finds that this tends to occur when performing activities that involve prolonged positioning or repetitive motion. He has noticed that his hands feel weak at times and he has drop things. He is not having much in the way of numbness or ti ngling into his hands during the day, but he states at night he has had some numbness throughout his entire hand. He has tried wearing a wrist brace and if anything he found this to be uncomfortable and did not notice any improvement in his symptoms. He has not had any prior wrist or hand surgeries. He states that he did have an injury to his neck in the remote past which was treated with chiropractic treatments. He also reports a history of borderline diabetes which is currently diet controlled. Medications and Allergies were reviewed in [facility] PAST MEDICAL HX: No past medical history on file. PAST SURGICAL HX: Past Surgical History: Procedure Laterality Date ??? PRO COLONOSCOPY, REMV LESN, SNARE N/A 08/31/2020 COLONOSCOPY, POLYPECTOMY, REMOVAL LESION BY SNARE (WRVU 4.67) performed by Perez Rubalcava MD at [facility] END[facility]COPY ??? PRO ENDOSCOPIC US EXAM, ESOPH N/A 01/09/2021 UPPER EUS- ENDOSCOPIC ULTRASOUND performed by Zhen Carnes MD at [facility] ENDOSCOPY ??? PRO UPPER GI ENDOSCOPY, BIOPSY N/A 08/31/2020 EGD WITH BIOPSY (WRVU 2.49) performed by Perez Rubalcava MD at [facility] ENDOSCOPY FAMILY HX: No family history on file. SOCIAL HX: Social History Occupational History ??? 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 Smoking status: Never Smoker ??? Smokeless tobacco: Never Used Substance and Sexual Activity ??? Alcohol use: Not Currently ??? Drug use: Not Currently ??? Sexual activity: Not on file ROS: Pertinent items are noted in HPI. General Health, Prior Treatments, PreExisting Condition, Health Habits, About You 12/23/2021 PROMIS-10 General Health Fair PROMIS-10 Quality of Life Fair PROMIS-10 Physical Health Fair PROMIS-10 Mental Health Fair PROMIS-10 Social Activity Poor PROMIS-10 Everyday Activities Mostly PROMIS-10 Pain 8 PROMIS-10 Fatigue Moderate PROMIS-10 Social Roles Poor PROMIS-10 Anxious or Depressed Often PROMIS PHYSICAL SCORE (range 16-68) 37.4 PROMIS MENTAL SCORE (range 21-68) 31.3 Treatments Tried Heat and ice therapy, Brace Alzheimers or dementia No Cirrohosis or liver disease No HIV/AIDS No Pain in more than one joint in legs Yes Back or neck pain Yes Heart attack No Heart failure No Unclog/bypass leg arteries No Stroke, blood clot, TIA Yes Difficulty moving arm/leg No Asthma Yes Take medication for asthma Yes Emphysema, chronic bronchities, or COPD Yes Take medication for lung disease Yes Stomach ulcers/peptic ulcer disease No Diabetes No Poor kidney function No Rheumatic condtions No Cancer No Weight (lbs) 250 Height (feet) 5 feet Height (Inches) 10 BMI 35.87 (Obese) Ever used tobacco products Yes Tobacco frequency Never WHO - Tobacco Advice 0 (You are at low risk of health and other problems from your current pattern of use.) Ever used alcoholic beverages Yes Alcohol frequency Never WHO - Alcohol Advice 0 (You are at low risk of health and other problems from your current pattern of use.) Live Alone Yes Marital situation Single (never ) Schooling High school graduate or GED Combined Household Income $20,000 to less than $25,000 # People Supported 1 Nigerian, , No, not Nigerian// Race White Health Literacy Somewhat Currently working Yes Current job situation Full-time [facility] [employer] 12/23/2021 NICOLE-RIGHT HAND PAIN 2.27 NICOLE-LEFT HAND PAIN Incomplete No flowsheet data found. PHYSICAL EXAM: Mr. Garcia is a 56 y.o. male who is in no apparent distress, alert and cooperative. Inspection: There is no erythema or ecchymosis over the bilateral hands. Palpation: He does not have any point tenderness over the wrists. There is no triggering of the digits. He has noticed some occasional discomfort over the medial aspect of his elbow more so on the right. There is no evidence of any ulnar nerve subluxation. ROM/Strength: He is able to flex and extend all of his digits. There is no obvious intrinsic atrophy. Wrist range of motion remains grossly intact in all planes. He has a mild tremor at baseline in both hands. He was unable to reproduce the cramping sensation that he often experiences. Orthopedic testing: Positive Tinel's over the right carpal tunnel, negative on the left. Negative Phalen's and Durkan's compression bilaterally. Tinel's over the cubital tunnel causes pain at the cubital tunnel on the right side, but no reproducible symptoms into the small finger. Negative elbow flexion test. He has noticed some stiffness with rotation of his neck to the left, but no reproducibleradicular symptoms into the upper extremities. Neurovascular: On exam today he has intact sensation in both the median and ulnar distributions in both hands. He had some mild tingling in the median distribution after testing. Hands are well perfused DIAGNOSTIC STUDIES: He has had nerve conduction studies from [facility] which are available in scanned documents. 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 There also was evidence of a right ulnar neuropathy, but this was not localized to the elbow. There also was evidence of a chronic C5-C6 radiculopathy. ASSESSMENT: Bilateral hand cramping with evidence of bilateral median neuropathy, right ulnar neuropathy, chronic C5-6 radiculopathy on nerve testing PLAN: His primary complaint is painful cramping of the hands. His nerve conduction studies did showfindings of median and ulnar neuropathy, but we discussed that hand cramping is not a typical symptom that we would expect with a compressive neuropathy. There also is evidence of ulnar neuropathy and cervical radiculopathy which were not as clinically symptomatic. He has noticed some nocturnal symptoms and occasional tingling which could be more consistent with carpal tunnel syndrome. We discussed treatment options for carpal tunnel syndrome to include splinting, cortisone injection, and surgical decompression. He was offered a carpal tunnel cortisone injection for diagnostic and therapeuticpurposes, but his preference would be to schedule carpal tunnel surgery. We also discussed that hishand cramping may benefit from additional neurological work-up or possibly hand therapy, but he would prefer to focus on the carpal tunnel for now. We discussed that he may continue to have hand cramp ing despite decompression of his carpal tunnel. We will schedule a preoperative visit with Dr. Kinney. He would like to begin the scheduling process and surgical orders have been placed. The patientunderstands to contact us if they have any other questions or concerns. The above documentation was completed using [employer] voice recognition software. documented in this encounter Plan of Treatment Not on file documented as of this encounter Visit Diagnoses Diagnosis Cramping of hands Cramp of limb Median nerve neuropathy, unspecified laterality documented in this encounter Care Teams Global Chief Experience Officer Relationship Specialty Start Date End Date Senthil Mitchell MD [address] [place] [address] [place] [address] PCP - General Family Medicine 12/23/21 06/01/22 documented as of this encounter
--- OUTSIDE RECORDS SUMMARY | 2024-07-07 11:43 | XMS_ITS | Encounter Summary ---
Author Organization [facility] Address [facility] [place] [address] Care Team Providers Care Refinery Operator Name Role Phone Senthil Mitchell MD Primary Care Provider + Reason for Visit * Reason Onset Date Comments Disability Paperwork 03/27/2022 Encounter Details Date Type Department Care Team (Late st Contact Info) Description 03/27/2022 Telephone [place] [phone] Long Kinney MD [facility] [place] [address] Disability Paperwork Social History Tobacco Use Types [...] * Telephone Encounter - Melissa Zazueta - 04/04/2022 1:46 PM EDT Faxed/Mailed/MY PORTAL/Pick-up Date: Faxed 04/03/22 * Telephone Encounter - Melissa Zazueta - 04/01/2022 11:51 AM EDT Completed by: Melissa To provider for review/signature: Out for signature * Telephone Encounter - Melissa Zazueta - 03/27/2022 3:01 PM EDT Date Received: 03/26/22 Insurance/Disability Company Name: [employer] Release on file/mailed: n/a documented in this encounter Plan of Treatment Not on file documented as of this encounter Visit Diagnoses Not on filedocumented in this encounter Care Teams Refinery Operator Relationship Specialty Start Date End Date Senthil Mitchell MD [address] [place] [address] [place] [id number] PCP - General Family Medicine 12/23/21 06/01/22 documented as of this encounter
--- OUTSIDE RECORDS SUMMARY | 2024-07-07 11:43 | XMS_ITS | Encounter Summary ---
Author [facility] [place] [address] Care Team Providers Care Sheet Combining Operator Name Role Phone Senthil Mitchell MD Primary Care Provider + Encounter Details Date Type Department Care Team (Latest Contact Info) Description 01/27/2022 Travel Social History Tobacco Use Types Packs/Day [...] on filedocumented in this encounter Care Teams Sheet Combining Operator Relationship Specialty Start Date End Date Senthil Mitchell MD [address] [place] [address] [place] [address] PCP - General Family Medicine 12/23/21 06/01/22 documented as of this encounter
--- OUTSIDE RECORDS SUMMARY | 2024-07-07 11:43 | XMS_ITS | Encounter Summary ---
Author Organization [facility] [place] [address] Care Team Providers Care Instrument Maker Apprentice Name Role Phone Estefani Nicole MD Primary Care Provider + Encounter Details Date Type Department Care Team (Late st Contact Info) Description 01/14/2021 Telephone Gastroenterology at [facility] [place] [phone] Brittaney Colon RN Social History Tobacco Use [...] Telephone Encounter - Brittaney Colon RN - 01/14/2021 2:33 PM EST Spoke with patient and relayed message from provider. Joe is scheduled to see his PCP on 01/23 and will discuss with him at that time. Report faxed to Dr. Nicole's office. Patient states he is doing well with nausea on Amitriptyline 10 mg nightly x last two months. He understands dosage can be titrated up by Dr. Nicole if needed. Joe would like to get scheduled for follow-up in April per notes. * Telephone Encounter - Brittaney Colon RN - 01/14/2021 2:33 PM EST ----- Message from Maria Del Carmen Lutz APRN sent at 01/11/2021 8:56 AM EST ----- Regarding: please let patient know Hi-- MRI of brain showed a few brain cysts. Probably not a big deal, but outside of my realm of expertise. I recommend following up with his PCP to discuss. Please make sure his PCP has access to report. Thanks, Maria Del Carmen ----- Message ----- From: Department, Radiology Sent: 01/09/2021 9:55 AM EST To: Maria Del Carmen Lutz APRN documented in this encounter Plan of Treatment Not on file documented as of this encounter Visit Diagnoses Not on filedocumented in this encounter Care Teams Instrument Maker Apprentice Relationship Specialty Start Date End Date Estefani Nicole MD [address] [place] [address] PCP - General Family Medicine 10/19/19 12/22/21 documented as of this encounter
--- OUTSIDE RECORDS SUMMARY | 2024-07-07 11:43 | XMS_ITS | Encounter Summary ---
Author Organization [facility] [place] [address] Care Team Providers Care Software Tools Build Engineer Name Role Phone Estefani Nicole MD Primary Care Provider + Reason for Referral * Consultation (Routine) - Closed Specialty Diagnoses / Procedures Referred By Dasia phelps Referred To Contact Neurology Diagnoses Cyclical vomiting without status migrainosus, not intractable Other migraine without status migrainosus, not intractable Maria Del Carmen Lutz APRN [address] [address] [facility] Neurology [address] [place] [id number] Referral ID Status Reason Start Date Expiration Date V isits Requested Visits Authorized [id number] Closed Consult, Test & Treat 04/23/2021 04/23/2022 1 1 Encounter Details Date Type Department Care Team (Late st Contact Info) Description 04/23/2021 10:00 AM EDT Office [place] [address] Maria Del Carmen Lutz APRN [address] [place], [place] [id number] Cyclical vomiting without status migrainosus, not intractable; Other migraine without status migrainosus, not intractable; Dyspepsia Social History Tobacco Use Types Packs/Day Years [...] Sign Reading Time Taken Comments Blood Pressure 135/89 04/23/2021 9:35 AM EDT Pulse 100 04/23/2021 9:35 AM EDT Temperature - - Respiratory Rate - - Oxygen Saturation - - Inhaled Oxygen Concentration - - Weight 105.7 kg (233 lb) 04/23/2021 9:35 AM EDT Height - - Body Mass Index 33.43 12/19/2020 8:22 AM EST documented in this encounter Patient Instructions * Patient Instructions* Maria Del Carmen Lutz APRN - 04/23/2021 10:00 AM EDT 1. Referral to headache clinic. They will contact you directly 2. Please follow up with Estefani Nicole MD to discuss additional treatment options Cyclic Vomiting Syndrome: Information Handout for Patients and Primary Care Providers Jerome Herbert MD, FRCPC + Mio Norman MD, FREDO Humble Bradley APRN + Maria Del Carmen Lutz APRN [facility] What is Cyclic Vomiting Syndrome (CVS)? CVS is chronic disorder characterized by intermittent episodes of severe nausea and vomiting (and abdominal pain in some patients) ??? The episodes typically last 1-5 days and are followed by prolonged periods without symptoms ??? CVS can be associated with menses (periods), migraine headaches, diabetes mellitus, , and IBS ??? Patients may have an ???awareness?? or ???aura?? indicating an impending (approaching) episode ??? CVS is a functional gut disorder - the gut is structurally/anatomically normal but is not functioning properly due to abnormalities in the enteric (gut) nervous system and the central nervous system (brain and spinal cord) ??? The exact cause of CVS is unclear but we suspect it is caused by a combination of a genetic factors, changes to the gut microbiota (intestinal bacteria) and environmental triggers. How common are these disorders and what is the impact? CVS is considered to be a rare disorder but is increasingly recognized as a cause for chronic nausea and vomiting ??? This disorder can have a significant impact on quality of life ??? Unpredictability and severity of episodes can affect patients' ability to do the things that are important in their lives ??? Untreated CVS patients often require frequent presentations to the Emergency department What are the phases of CVS? CVS is generally considered to have four distinct phases - o Prodromal phase (just before acute phase - often with ???awareness?? of impending episode) o Acute phase (nausea and vomiting) o Recovery phase o Inter-episodic phase (period of wellness between episodes) ??? These phases are important to remember as each phase has specific treatments and treatment goals What is the prognosis and overall treatment goals? CVS is unfortunately a chronic disorder with no known cure ??? Symptoms may gradually resolve is a small proportion of patients but senior care symptoms are expected in most patients. ??? Ultimately we hope that you are able to achieve prolonged periods of stability with a decrease in the frequency and severity of episodes ??? We believe the most important treatment goal is to help you improve your overall quality of life. ??? For most patients this means doing the things that are important in your life despite having symptoms. ??? This goal is typically achieved by increasing your understanding of this disorder and developing coping and management skills. ??? Remember, for most patients complete resolution of all symptoms is NOT a realistic goal. Are there any factors that predict poor response to treatment? Yes, medical studies have shown that patients with certain risk factors often have refractory symptoms. This includes the followin. Poorly controlled anxiety and depression 2. Poorly controlled irritable bowel syndrome 3. Poorly controlled migraine headaches 4. Chronic opioid usage 5. Chronic cannabis usage ??? If any of these factors apply to you it is unlikely your CVS will be improve without addressingthem. Make sure you address these factors with your medical team. What are the specific treatment options by phase? Specific treatments broken down by CVS phase are as follows: 1. Prodromal phase - Early recognition of impending episode - Rapid initiation of ???abortive therapy?? 2. Acute phase - Rapid termination of nausea, vomiting and pain with ???supportive therapy?? - Prevention of complications such as dehydration with IV fluids - Reduction in frequency of Emergency department visits 3. Recovery phase - Rapid return to wellness 4. Inter-episodic phase ??? Prevention of next episode by ???general measures?? and ???prophylactic therapies What are general measures for CVS? Several lifestyle and dietary factors can increase the frequency and severity of CVS episodes ??? These lifestyle factors include the following: o Inadequate sleep o Prolonged fasting o Dehydration o Stress o Depression/anxiety ??? Some patients are able to identity dietary triggers for episodes such as the following: o Chocolate o Cheese o Wine o Monosodium glutamate (MSG) What are options for ???Abortive Therapy? Several medication options exist for abortive therapies. You should discuss these options with your medical providers. In general these medications fall into one of the following categories: o Anti-migraine medications o Anti-emetic medications o Anti-histamine medications ??? Also consider non-medical therapies such as relaxing or sleeping in a quiet dark room if possible ??? Consumption of sugary foods has been suggested to benefit pediatric patients with AVS but medical studies in adults is lacking ??? Also try to ensure you are well hydrated in case you do progress to the acute phase What are options for ???Supportive Therapy? Several medication options exist for supportive therapies. You should discuss these options with your medical providers. In general these medications fall into one of the following categories: o Anti-migraine medications o Anti-emetic medications o Anti-histamine medications o Sedation medications ??? Patients should seek care in the Emergency department if they are unable to control their symptoms and/or become dehydrated. ??? We generally recommend that opioids to be avoided if possible as there is a high risk of addiction and/or dependence. Every effort should be made to use non-opioid alternatives. What are options for ???Prophylactic Therapy? These measures are generally considered to be the most important area of treatment as the main goal is to decrease the frequency of episodes. ??? You should discuss these medical options with your medical providers. In general these medications fall into one of the following categories: o Anti-depressant medications o Anti-seizure medications o Anti-migraine medications ??? Please note: GI specialists often use low dosages of these medications to provide beneficial effects on the enteric (gut) nervous system (i.e. NOT to treat depression or seizure disorders, etc.) ??? Also consider non-medical options to prevent episodes such as the following: o Carefully following general measures for CVS o Avoiding dietary triggers o L-carnitine, riboflavin and coenzyme Q10 supplements ??? In general we do not recommend continuous (daily) usage of anti-emetics or other abortive therapies. regional intermodal truck driver daily usage of these medications has not been studied and is likely of minimal benefit. The above prophylactic measures are considered to be safer and more effective. What about Cannabis? Many patients ask about the role of medical cannabis (marijuana). ??? Some patients have reported benefit of CVS symptoms with cannabis. ??? However, potential benefits of cannabis for CVS have not been well studied in the medical literature. ??? In the contrary, medical studies have convincingly shown that cannabis may actually worsen symptoms in some patients with CVS. ??? At this point we generally do NOT recommend using medical cannabis to treat CVS. Disclaimer ??? This information is intended for education purposes only ??? It is not meant to replace direct patient-provider care ??? We recommend sharing this document with your Primary Care Provider ??? All medications should be used under the supervision of your Gastroenterology provider and/or Primary Care Provider ??? Authors are not liable for misuse/misinterpretation of this information Patient resources Cyclic Vomiting Syndrome Association (CVSA http://cvsaonline.org/ References Lukas T et al. Guidelines on management of cyclic vomiting syndrome in adults by the Stateless Neurogastroenterology and Motility Society and the Cyclic Vomiting Syndrome Association. Neruogastroenterology & Motility. 2019;31(Suppl. 2):e32244 documented in this encounter Progress Notes * Maria Del Carmen Lutz APRN - 04/23/2021 10:00 AM EDT GASTROENTEROLOGY TELEMEDICINE PROGRAM - ESTABLISHED PATIENT VISIT Chief Complaint: Joe Garcia is a [address] y[address] Nicole here for follow-up of CVS Detailed history: Joe Garcia is a 55 y.o. male with a history significant for depression/anxiety (managed by Dr. Collins [facility] in [place]), and asthma. He was initially seen by me in 06/03/18 following a several year history of nausea with vomiting. He subsequently underwent a EGD at [facility] showing concern for pyloric stenosis. Dilitation was done. During our appointment on 12/06/19 he had persistent vomiting episodes prior to the EGD. I recommended a repeat EGD. During his appointment on 06/29/2020, he endorsed a recent EGD at [facility]. He continued to have vomiting every day [...] management regimen to be considered by PCP. Interval history: Continues to have good days and bad days. Endorses 2-3 episodes of nausea per week. Has not had vomiting in approximately one month. Ondansetron is helpful if he catches it in time. Review of systems: 14-point review of systems reviewed and negative except as above. Medications: Outpatient Medications Prior to Visit Medication Sig Dispense Refill ??? amitriptyline (Elavil) [...] history that includes Upper Gi Endoscopy, Biopsy ([id number])(N/A, 08/31/2020); Colonoscopy, Rocco Peralta ([id number]) (N/A, 08/31/2020); and Endoscopic Us Exam,Susan ([id number]) (N/A, 01/09/2021). Family History: family history is [...] 2. CT scan abd/pelvis with contrast 01/17/18 ([facility]); lung nodule- otherwise unrevealing 3. EGD 07/06/18 [facility]; pyloric stenosis with balloon diltation. 4. [...] small gallstone. Assessment/Plan: Mr. Garcia is a 55 y.o. patient with #CVS- Work-up has been unremarkable including an MRCP, 8 AM cortisol, celiac panel, EGD, colonoscopy, and small bowel follow-through (with the exception of hypermobility in the small intestine). MRI of brain with several arachnoid cysts, most likely not contributing to symptoms although I defer to neurology to render an opinion. EUS without evidence of pancreatic masses or lesions. His symptoms are most consistent with cyclic vomiting syndrome. I will refer him to headache clinic for further management. #Dyspepsia with overlapping CVS; Endorses 2-3 days of nausea per week. Consider role of polypharmacy. Recommendations: -Referral to headache clinic clinic for further evaluation and management of cyclic vomiting syndrome -He will follow-up with his PCP to discuss polypharmacy -For local managing provider to consider; medication review with possible medication reduction -No specific follow-up recommended at this time. MEDICATIONS for the local managing provider to consider (depending on appropriateness from a mentalhealth/non-GI standpoint as determined by the PCP; try rpq-sk-l-time for at least ~90 days each before switching therapy, as long as tolerated) Step 2) Consider topamax 100mg daily (possible side effects Include cognitive dysfunction, paresthesia, headache, fatigue, dizziness, mood problems, and loss of appetite). Step 3) consider aprepitant 80mg daily (NK1 antagonist), if ineffective can increase to 125mg daily(counseled on risks of fatigue, neutropenia, hypersensitivity, hepatotoxicity), references Am J Physiol Gastrointest Liver Physiol. 2017;313:G505-10 and Gastroenterology. 2018;154:65-76 Maria Del Carmen Lutz APRN [facility] [place] [phone] documented in this encounter Plan of Treatment Scheduled Referrals Name Type Priority Associated Diagnoses Orde r Schedule Referral to Neurology Outpatient Referral Routine Cyclical vomiting without status migrainosus, not intractable Other migraine without status migrainosus, not intractable Ordered: 04/23/2021 documented as of this encounter Visit Diagnoses Diagnosis Cyclical vomiting without status migrainosus, not intractable Variants of migraine, not elsewhere classified, without mention of intractable migraine without mention of status migrainosus Other migraine without status migrainosus, not intractable Dyspepsia Dyspepsia and other specified disorders of function of stomach documented in this encounter Care Teams Software Tools Build Engineer Relationship Specialty Start Date End Date Estefani Nicole MD [address] [place] [id number] PCP - General Family Medicine 10/19/19 12/22/21 documented as of this encounter
--- OUTSIDE RECORDS SUMMARY | 2024-07-07 11:43 | XMS_ITS | Encounter Summary ---
Author Organization [facility] [place] [address] Care Team Providers Care Gambling Floor Supervisor Name Role Phone Estefani Nicole MD [...] Expiration Date Visits Re quested Visits Authorized [id number] 1 1 Encounter Details Date Type Department Care Team (Latest Contact Info) Description 01/09/2021 11:36 AM EST - 01/09/2021 2:01 PM EST Hospital Encounter [place] [id number] Zhen Carnes MD [facility] [place] [address] Discharge Disposition: Home Social History Tobacco Use [...] the day after the procedure, use an tzrb-ktf-duzbpze spray to numb your throat. Sucking on [...] occurs, please contact your Doctor. Please call [phone] before 8pm Mon-Fri with problems, questions or concerns. If you call after 8pm or on weekends, call the Hospital at [phone] and ask to speak to the [employer] employee relations administrator and the earthmoving plant operator will contact that person for you. When should you call for help? Call [phone] anytime you think you may need emergency [...] any problems. Where can you learn more? [facility] View your After Visit Summary and more online at [email or web address] If you would like to provide feedback about your hospital experience, please call the Office of Patient and Family Relations at . If you have received this After Visit Summary in error, please immediately return it in person to the department, or notify the [facility] Privacy Office by calling toll free at between the hours of 8AM and 5PM to arrange for our retrieval of the documents at no cost to you. Content Version: 12.2 ?? 4570-3354 [employer]. Care instructions adapted under license by [facility]. If you have questions about a medical condition or this instruction, always ask your healthcare professional. [employer] disclaims any warranty or liability for your [...] occurs, please contact your Doctor. Please call [phone] before 8pm Mon-Fri with problems, questions or concerns. If you call after 8pm or on weekends, call the Hospital at [phone] and ask to speak to the [employer] employee relations administrator and the earthmoving plant operator will contact that person for you. When should you call for help? Call [phone] anytime you think you may need emergency [...] any problems. Where can you learn more? [facility] View your After Visit Summary and more online at [email or web address] If you would like to provide feedback about your hospital experience, please call the Office of Patient and Family Relations at . If you have received this After Visit Summary in error, please immediately return it in person to the department, or notify the - Privacy Office by calling toll free at between the hours of 8AM and 5PM to arrange for our retrieval of the documents at no cost to you. Content Version: 12.2 ?? 2794-1080 [employer]. Care instructions adapted under license by [facility]. If you have questions about a medical condition or this instruction, always ask your healthcare professional. [employer] disclaims any warranty or liability for your use of this information. * Patient Instructions* hZen Carnes MD - 01/09/2021 12:46 PM EST [...] Carnes MD - 01/09/2021 12:30 PM EST [facility] Operative Note Patient Name: Joe Garcia : [id number] MR#: [id number] Case Date: 01/09/2021 Surgeon: Surgeon(s) and Role: [...] is documented under the Procedure section of [facility]. documented in this encounter Plan of Treatment Not on file documented as of this encounter Procedures Procedure Name Priority Date/Time Associated Diagnosis Comments Endoscopic Us Exam, Susan ([id number]) 01/09/2021 12:22 PM EST EUS to evaluate for pancreatic lesions in setting of CVS without identified etiology Coordinated with Brain MRI 01/09 UPPER EUS-ENDOSCOPIC ULTRASOUND Routine 01/09/2021 12:11 PM EST documented in this encounter Results * UPPER EUS-ENDOSCOPIC ULTRASOUND (01/09/2021 12:11 PM EST) UPPER ENDOSCOPIC ULTRASOUND [facility] Endoscopy Procedure Date: 01/09/2021 12:11 PM ? Patient Name: Joe Garcia ? Date of : 1965 ? Age: 55 ? Order #: [id number] ? Instrument Name: [id number],[facility]- [id number] ? Procedure: ? Upper EUS Indications: ? [...] infusion 100 mL/hr, Intravenous, CONTINUOUS, Starting on 01/09/21 at 1215, Until Thu01/09/21 at 1602, Endoscopy [...] RN) documented in this encounter Care Teams Gambling Floor Supervisor Relationship Specialty Start Date End Date Estefani Nicole MD [address] [place] [address] PCP - General Family Medicine 10/19/19 12/22/21 documented as of this encounter
--- OUTSIDE RECORDS SUMMARY | 2024-07-07 11:43 | XMS_ITS | Encounter Summary ---
Author Organization [facility] [place] [address] Care Team Providers Care Conductor Freight Name Role Phone Senthil Mitchell MD Primary [...] Expiration Date Visits Re quested Visits Authorized [id number] 1 1 Encounter Details Date Type Department Care Team (Latest Contact Info) Description 01/31/2022 8:31 AM EDT - 01/31/2022 11:30 AM EDT Hospital Encounter Outpatient [place] [phone] Kamille Kinney MD [facility] [place] [address] Median nerve neuropathy, unspecified laterality Discharge Disposition: Home Social History Tobacco Use [...] Sign Reading Time Taken Comments Blood Pressure 124/90 01/31/2022 11:15 AM EDT Pulse 82 01/31/2022 11:15 AM EDT Temperature 36.2 ??C (97.2 ??F) 01/31/2022 10:44 AM E DT Respiratory Rate 16 01/31/2022 11:15 AM EDT Oxygen Saturation 93% 01/31/2022 11:15 AM EDT Inhaled Oxygen Concentration - - Weight 113.4 kg (250 lb) 01/31/2022 9:40 AM EDT Height 177.8 cm (5' 10) 01/31/2022 9:40 AM EDT Body Mass Index 35.87 01/31/2022 9:40 AM EDT documented in this encounter Discharge Instructions * Discharge Instructions* Kirit Reeder RN - 01/31/2022 9:48 AM EDT [...] 5pm or on a weekend: Call the [facility] hydraulic press in operator and ask for the physician senior quality control inspector covering for your doctor. * Patient Instructions* [...] During clinic hours M-F 8-4:30 please call [phone] If it is after 5:00PM on a weekday or a weekend and it is of an urgent nature please call [phone] and ask for the on-call orthopaedic resident. [...] Center 02/12/2022 10:20 AM Nusrat Saleem PA [facility] [address] [facility] 02/25/2022 9:10 AM [facility] MR 6 MH MRI [facility] Rad 02/25/2022 11:00 AM Julián Sawyer PA [id number] documented in this encounter Medications at Time [...] TABLET FOR 09/26/2021 SUMAtriptan (IMITREX) 20 mg/actuation [place], Non-Aerosol as needed. 01/23/2022 escitalopram (Lexapro) 10 [...] Kinney MD - 01/31/2022 10:[address] [facility] Operative Note Patient Name: Joe Garcia : [id number] MR#: [id number] Case Date: 01/31/2022 Surgeon: Surgeon(s) and Role: [...] A preoperative time-out was performed as per [facility] protocol. 7mL of 2% lidocaine was injected [...] Operative Note Patient Name: Joe Garcia : [id number] MR#: [id number] Case Date: 01/31/2022 Surgeon: Surgeon(s) and Role: [...] Endoscopic Wrist Surg Release Transverse Carpal Ligament ([id number]) 01/31/2022 10:23 AM EDT Median nerve neuropathy, unspecified laterality ARTHROSCOPY WRIST W/ RELEASE TRANSVERSE CARPAL LIGAMENT Routine 01/31/2022 9:24 AM EDT Median nerve neuropathy, unspecified laterality documented in this encounter Visit Diagnoses Diagnosis Median nerve neuropathy, unspecified laterality documented in [...] 9:49 AM EDT 1,000 mLs 100 mL/hr traMADoL (Ultram) tablet 50 mg 50 mg, [...] Routine documented in this encounter Care Teams Conductor Freight Relationship Specialty Start Date End Date Senthil Mitchell MD [address] [place] [address] [place] [address] PCP - General Family Medicine 12/23/21 06/01/22 documented as of this encounter
--- OUTSIDE RECORDS SUMMARY | 2024-07-07 11:43 | XMS_ITS | Encounter Summary ---
Author Organization [facility] Address [facility] [place] [address] Care Team Providers Care Application Counselor Name Role Phone Senthil Mitchell MD Primary [...] Expiration Date Visits Re quested Visits Authorized [id number] 1 1 Encounter Details Date Type Department Care Team (Late st Contact Info) Description 01/31/2022 10:23 AM EDT Anesthesia Event [facility] [place] [id number] Nasir Díaz MD [facility] [place] [address] Misael Marsh MD [facility] [place] [address] Anesthesia Record Procedure Summary Procedure Name Responsible Anesthesiologist Anesthesia Start Time Anesthesia Stop Time ENDOSCOPY WRIST W/ RELEASE TRANSVERSE CARPAL LIGAMENT (WRVU 6.39) (Right: Wrist) Nasir Díaz MD 01/31/22 1023 01/31/22 1047 Events Date Time Event Comment 01/31/2022 0935 1023 AN Verify 1023 Start 1023 An Start Data 1035 Anesthesia Ready 1042 an stop data 1047 Recovery or ICU Handoff Rosa ent care was transferred to the destination unit staff after review of the patient's medical history, current anesthetic/surgical status and plan, according to the Provider Handoff Checklist. 1047 Stop Meds Name Total Midazolam 2 mg IV Lidocaine 80 mg Propofol 10 mg Propofol INF 170.1 mg Dexmedetomidine 12 mcg ceFAZolin 2 g Lactated Ringers 600 mL * Agents Name O2 Air N2O * Blood No blood administrations on file. Lines, Drains, and Airways Type Details Placement Removal Incision 01/31/22; 1033; Righ t, anterior; wrist 01/31/22 1033 by Mini Wick RN (RETIRED) Peripheral IV Line - Single Lumen 01/31/22; 0946; metacarpal vein (top of hand), left; gedl-koi-nlaibo catheter system; 20 gauge, 3/4 in length; sys; intradermal injection; no longer indicated, removed per policy/procedure, site care per policy/procedure, catheter/device intact; 01/31/22; 1120 01/31/22 0946 by Faby Valdez RN 01/31/22 1120 by Tennille Mccoy RN documented in this encounter Social History [...] OR Notes * Anesthesia Postprocedure Evaluation - Nasir Díaz MD - 01/31/2022 5:17 PM EDT Department of Anesthesiology Post-procedure Note Patient: Joe Garcia Procedure Summary Date: 01/31/22 Room / Location: [facility] [facility] [address] [place] [address] OSC Anesthesia Start: 1023 Anesthesia Stop: 1046 Procedure: ENDOSCOPY WRIST W/ RELEASE TRANSVERSE CARPAL LIGAMENT (WRVU 6.39) (Right Wrist) Diagnosis: Median nerve neuropathy, unspecified laterality (right carpal tunnel syndrome) Surgeons: Long Kinney MD Responsible Provider: Nasir Díaz MD Anesthesia Type: MAC ASA Status: 3 All Anesthesia Providers: Anesthesiologist: Nasir Díaz MD HOMICIDE DETECTIVE: Emma Lou CRNA Vitals Value Taken Time BP 124/90 01/31/22 1115 Temp 36.2 ??C (97.2 ??F) 01/31/22 1044 Pulse 80 01/31/22 1124 Resp 16 01/31/22 1115 SpO2 93 % 01/31/22 1124 Pain Level 0 01/31/22 1100 Vitals shown include unvalidated device data. Patient Location: PACU/[facility] Level of Consciousness: Awake and Alert Pain Management: Satisfactory Analgesia PONV: None Cardiovascular Status: At Baseline and Hemodynamically Stable Respiratory Status: At Baseline and Room Air Postoperative Fluid Status: Intravascular EUvolemia Possible Anesthetic Complications: NONE apparent at time of evaluation Final Primary Anesthesia Type: General (The anesthetic type performed was the same as planned.) Comments: Nasir Díaz MD * Anesthesia Preprocedure Evaluation - Nasir Díaz MD - 01/31/2022 9:32 AM EDT Pre-Anesthesia Evaluation for: Joe Garcia a 56 y.o. male. Procedure(s): ENDOSCOPY WRIST W/ RELEASE TRANSVERSE CARPAL LIGAMENT (WRVU 6.39) Patient Active Problem List Diagnosis Date Noted ??? Carpal tunnel syndrome on right 01/27/2022 ??? Intracranial arachnoid cysts 02/12/2021 No past medical history on file. Past Surgical History: Procedure Laterality Date ??? PRO COLONOSCOPY, REMV LESN, SNARE N/A 08/31/2020 COLONOSCOPY, POLYPECTOMY, REMOVAL LESION BY SNARE (WRVU 4.67) performed by Perez Rubalcava MD at [facility] ENDOSCOPY ??? PRO ENDOSCOPIC US EXAM, ESOPH N/A 01/09/2021 UPPER EUS- ENDOSCOPIC ULTRASOUND performed by Zhen Carnes MD at [facility] ENDOSCOPY ??? PRO UPPER GI ENDOSCOPY, BIOPSY N/A 08/31/2020 EGD WITH BIOPSY (WRVU 2.49) performed by Perez Rubalcava MD at [facility] ENDOSCOPY Social History Tobacco Use ??? Smoking [...] Physical Exam: Preprocedure Vitals Current as of 01/31/22 0932 No BP, pulse, respiration, SpO2, or temperature recorded. Height: 177.8 cm (5' 10) (12/23/21) Weight: 113.4 kg (250 lb) (12/23/21) BMI: 35.87 IBW: 73 kg (160 lb 15 oz) Airway Assessment: Mallampati: III TM distance: >3 FB Neck ROM: full Cardiovascular Assessment: Rhythm: regular Rate: normal system normal Pulmonary Assessment: pulmonary exam normal Dental Assessment: (+) upper dentures and lower dentures Comment: Partial lower Misc Assessment: Patient is wearing No contact(s). IV access: Peripheral line Other exam findings: Last Filed Perioperative Cognitive Screening None Anesthesia Plan: ASA 3 MAC, with a(n) intravenous induction 55 yo 104 kg M with PMH: Obesity (BMI: 33.15 kg/m??), mild asthma (albuterol as needed, Symbicort),MDD (aripiprazole, bupropion, risperidone, sertraline), hyperemesis (metoclopramide, prochlorperazine, ondansetron), GERD (omeprazole), insomnia (melatonin, mirtazapine) no history of tobacco or marijuana. Patient presents here today for ENDOSCOPY WRIST W/ RELEASE TRANSVERSE CARPAL LIGAMENT (WRVU 6.39) (Right Wrist) Prior anesthetics: EGD in the past with no anesthesia issue. NPO status: Appropriate Allergies: Dust and pollen, fish-containing products, peanut, shellfish allergies, Vicodin Plan: MAC, PIV x1, standard ASA monitors, Region - Other Informed Consent: Anesthetic plan and risks discussed with patient. Use of blood products discussed with patient who consented to blood products. Plan discussed with HOMICIDE DETECTIVE and attending. Anesthesia Screening documented in this encounter Plan of Treatment Not on file documented as of this encounter Visit Diagnoses Not on filedocumented in this encounter Administered Medications Inactive Administered Medications - up to 3 most recent administrations Medication Order MAR Action Action Date Dose Rate Site ceFAZolin (Ancef) 1 g in dextrose 5% 50 mL infusion Intravenous, PRN, Starting on Thu01/31/22 at 1035, Until Thu01/31/22 at 1047, Administer over 30 Minutes, Anesthesia Intra-op Given 01/31/2022 10:35 AM EDT 2 g dexmedetomidine (Precedex) (4 mcg/mL) bolus injection (Anesthsia) Intravenous, PRN, Starting on Thu01/31/22 at 1028, Until Thu01/31/22 at 1047, Anesthesia Intra-op, Routine Given 01/31/2022 10:34 AM EDT 4 mcg Given 01/31/2022 10:28 AM EDT 8 mcg lactated ringers infusion Intravenous, CONTINUOUS PRN, Starting on Thu01/31/22 at 1023, Until Thu01/31/22 at 1047, Anesthesia Intra-op New Bag 01/31/2022 10:23 AM EDT lidocaine (pf) (Xylocaine) (20 mg/mL) 2% injection syringe Intravenous, PRN, Starting on Thu01/31/22 at 1028, Until Thu01/31/22 at 1047, Anesthesia Intra-op, Routine Given 01/31/2022 10:28 AM EDT 80 mg midazolam (pf) (Versed) (1 mg/mL) multi-dose injection Intravenous, PRN, Starting on Thu01/31/22 at 1023, Until Thu01/31/22 at 1047, Anesthesia Intra-op, Routine Given 01/31/2022 10:26 AM EDT 1 mg Given 01/31/2022 10:23 AM EDT 1 mg propofoL (Diprivan) (10 mg/mL) infusion Intravenous, CONTINUOUS PRN, Starting on Thu01/31/22 at 1028, Until Thu01/31/22 at 1047, Anesthesia Intra-op, Routine New Bag 01/31/2022 10:28 AM EDT 150 mcg/kg/min 102.06 mL/hr propofoL (Diprivan) 10 mg/mL bolus injection (Anesthesia) Intravenous, PRN, Starting on Thu01/31/22 at 1034, Until Thu01/31/22 at 1047, Anesthesia Intra-op Given 01/31/2022 10:34 AM EDT 10 mg documented in this encounter Care Teams Application Counselor Relationship Specialty Start Date End Date Senthil Mitchell MD [address] [place] [address] [place] [address] PCP - General Family Medicine 12/23/21 06/01/22 documented as of this encounter
--- OUTSIDE RECORDS SUMMARY | 2024-07-07 11:43 | XMS_ITS | Encounter Summary ---
Author Organization [facility] Address [facility] [place] [address] Care Team Providers Care Hat Parts Cutter Machine Name Role Phone Kenia Devine MD Primary Care Provider [phone] Reason for Visit * Auth/Cert (Routine) Specialty Diagnoses / Procedures Referred By Dasia phelps Referred To Contact Diagnoses Mediastinal mass mediastinal mass Procedures PRO THYMECTOMY, RADICAL MEDIAST DISSSEC PRO BRONCHOSCOPY, DIAGNOSTIC @ROBOTIC THYMECTOMY W/ RAD. MEDIASTINAL DISSECTION (WRVU 23.48) BRONCHOSCOPY, DIAGNOSTIC (WRVU 2.53) MODIFIER ROBOT,Chace Burton MD [facility] [place] [address] [facility] Referral ID Status Reason Start Date Expiration Date Visits Re quested Visits Authorized [id number] 1 1 Encounter Details Date Type Department Care Team (Late st Contact Info) Description 05/06/2024 1:15 PM EDT - 05/06/2024 4:42 PM EDT Surgery [place] [id number] Chace Grijalva MD [facility] [place] [address] @ROBOTIC THYMECTOMY W/ RAD. MEDIASTINAL DISSECTION (WRVU 23.48) Social History Tobacco Use Types Packs/Day Years Used Date Smoking Tobacco: Never Smokeless Tobacco: Never Alcohol Use Standard Drinks/Week Comments Not Currently 0 (1 standard drink = 0.6 oz pur e alcohol) [facility] Inpatient Questions Answer Date Recorded [...] Sign Reading Time Taken Comments Blood Pressure 133/82 05/06/2024 12:12 PM EDT Pulse 84 05/06/2024 12:12 PM EDT Temperature 36.4 ??C (97.5 ??F) 05/06/2024 12:12 PM E DT Respiratory Rate 16 05/06/2024 12:12 PM EDT Oxygen Saturation 97% 05/06/2024 12:12 PM EDT Inhaled Oxygen Concentration - - [...] Primary * Renetta Chaparro PA - Physician Lightning Rod Erector Procedure: Procedure(s): @ROBOTIC THYMECTOMY W/ RAD. MEDIASTINAL DISSECTION (WRVU 23.48) BRONCHOSCOPY, DIAGNOSTIC (WRVU 2.53) MODIFIER ROBOT,DAVINCI XI Other Major Procedures: None History of Presentation-taken from H&P on 04/21/24: Today, 04/21/2024, we saw Mr. Garcia in the Thoracic Surgery Clinic at [facility] in consultation regarding an anterior mediastinal mass [...] and density. Patient was then referred to [facility] Thoracic Surgery for further evaluation Hospital Course: Joe Garcia was admitted to [facility] on 05/06/2024 via the Same Day [...] he had [place] Pain was controlled on oral medications. He [...] 05/06/2024 7:01 PM) Result Value WORKSTATION ID [id number] Impression 1. Possible trace left apical pneumothorax. 2. Low lung volumes with bronchovascular crowding. Thank you for letting us participate in the care of this patient. If you are a health care provider and have any questions regarding this report, please contact the number below. For patients who have questions please contact the health resident care provider that requested your imaging first. Electronically signed by: Chace Johnson MD, [facility] ([phone]), at 05/06/2024 7:27 PM Pending Studies and [...] a nurse in the Thoracic Clinic at [phone]. For emergencies after hours, on weekends or holidays please call: [phone] and ask to speak to the Thoracic Surgeon reduction furnace operator helper. Exercise & Activity Level: As you recover [...] please call the thoracic surgery clinic at [phone]. Driving: No driving for 1 week or [...] Thoracic Surgery Clinic or the Thoracic Surgeon reduction furnace operator helper after hours. Please take over the counter [...] Expires XR Chest PA & Lateral (Generic) [[id number] Custom] 05/21/2024 11/06/2024 Process Instructions: Scheduling Instructions: Questions: Portable exam?: Reason for exam and clinical history: s/p LEFT VATS thymectomy Clinical information / nicolas questions for radiologist: Stat read required?: Date of injury if applicable: Requested Time: Where will study be performed?: [facility] Rad[facility] Provider Contact Information: Primary Care Provider: Kenia Devine MD [phone] Discharge References/Attachments: Discharge References/Attachments None For questions [...] a nurse in the Thoracic Clinic at [phone]. For emergencies after hours, on weekends or holidays please call: [phone] and ask to speak to the Thoracic Surgeon reduction furnace operator helper. Exercise & Activity Level: As you recover [...] please call the thoracic surgery clinic at [phone]. Driving: No driving for 1 week or [...] Thoracic Surgery Clinic or the Thoracic Surgeon reduction furnace operator helper after hours. Please take over the counter [...] Oral Tablet 5 mg (OXYCODONE - ORAL) (Belgian) documented in this encounter Medications at Time [...] TABLET FOR 09/26/2021 SUMAtriptan (IMITREX) 20 mg/actuation [place], Non-Aerosol as needed. 01/23/2022 escitalopram (Lexapro) 10 [...] belongings with patient .Awaiting for family to roller picker. * Shanice Bhatt MD - 05/06/2024 9:55 PM EDT [facility] Department of Thoracic Surgery Inpatient Post Op Check Patient Name: Joe Garcia Patient : [id number] Patient Patient Location: [address] Attending Surgeon: CHACE GRIJALVA ID: Joe [...] Admission (Current) from 05/06/2024 in PACU at [facility] OfficeVisit from 04/21/2024 in Thoracic Surgery at [facility] Weight 120.7 kg (266 lb) 1 05/06/2024 [...] View Result Value Ref Range WORKSTATION ID [id number] Diagnostics: 1. Possible trace left apical pneumothorax. [...] Bhatt MD 05/06/2024 Thoracic Surgery Service Pager [phone] * Tarsha Faustin, RN - 05/06/2024 5:43 PM EDT Pt arrived to PACU from OR, placed on monitor and received report. 1849: CXR at this time. documented in this encounter H&P Notes * Chace Rizvi PA - 05/06/2024 1:25 PM EDT Thoracic Surgery [...] 4.67) performed by [facility] END[facility]COPY PRO ENDOSCOPIC US EXAM, ESOPH N/A 01/09/2021 UPPER EUS- ENDOSCOPIC ULTRASOUND performed by Zhen Carnes [facility] at [facility] END[facility]COPY PRO ENDOSCOPIC WRIST SURG RELEASE TRANSVERSE CARPAL LIGAMENT Right 01/31/2022 ENDOSCOPY WRIST W/ RELEASE TRANSVERSE CARPAL LIGAMENT (WRVU 6.39) performed by Long Kinney [facility] OSC PRO UPPER GI ENDOSCOPY, BIOPSY N/A 08/31/2020 EGD WITH BIOPSY (WRVU 2.49) performed by Perez Ruablcava [facility] at [facility] MEDS: No current facility-administered medications on [...] 1 TABLET FOR SUMAtriptan (IMITREX) 20 mg/actuation [place], Non-Aerosol as needed. baclofen (Lioresal) 10 mg [...] ELEN Serrato 05/06/2024 Thoracic Surgery Service Pager [phone] Associated attestation - Chace Grijalva MD - [...] Notes * Plan of Care - Tameka Fang, RN - 05/07/2024 8:57 AM EDT Problem: [...] Grijalva MD - 05/06/2024 2:15 PM EDT [facility] Operative Note Patient Name: Joe Garcia : [id number] MR#: [id number] Case Date: 05/06/2024 Surgeon: Surgeons and Role: * Chace Grijalva MD - Primary * Renetta Chaparro PA - Physician Lightning Rod Erector * Tamir Guerrero MD Preoperative diagnosis: mediastinal mass Postoperative diagnosis: mediastinal mass Procedure(s) (LRB): @ROBOTIC THYMECTOMY W/ RAD. MEDIASTINAL DISSECTION (WRVU 23.48) (Left) BRONCHOSCOPY, DIAGNOSTIC (WRVU 2.53) (N/A) MODIFIER ROBOT,MILI XI (N/A) Modifiers: 22: Increased procedural services Findings: [...] margin, cauterized area is lateral OR 11 24783 mediastinal mass Left superior lateral margin, cauterized area is lateral excision 05/06/2024 4:04 PM Time specimen removed from patient: 4:04 PM Number of tissue samples (in container) 1 SPECIMEN TO PATHOLOGY Anterior mediastinal inferior fat OR 11 43821 mediastinal mass Anterior mediastinal inferior fat excision 05/06/2024 4:18 PM Time specimen removed from patient: 4:17 PM Number of tissue samples (in container) 1 SPECIMEN TO PATHOLOGY radical thymectomy, short stitch superior; long stitch left lateral OR 11 56073 mediastinal mass radical thymectomy, short stitch superior; [...] placed in standard fashion. A 12 mm assistant director port was placed under direct vision. The [...] size of the specimen, the 12 mm assistant director port was upsized to a 15 mm [...] bleeding from the port sites. A 28 Uzbek chest tube was placed through the initial [...] modifier. Surgical Infection Prevention Bundle Used? N/A Chace Grijalva MD 05/06/2024 documented in this [...] 1:40 PM EDT Mediastinal mass Bronchoscopy, Diagnostic (37162) 05/06/2024 1:40 PM EDT Mediastinal mass Thymectomy, Radical Mediast Disssec (04443) 05/06/2024 1:40 PM EDT Mediastinal mass ROBOTIC THYMECTOMY W/ RAD. MEDIASTINAL DISSECTION Routine 05/06/2024 12:04 PM EDT Mediastinal mass BRONCHOSCOPY,DIAGNOSTIC Routine 05/06/20 12:04 PM EDT Mediastinal mass documented in this encounter Results * XR Chest PA & Lateral (Generic) (05/26/2024 11:11 AM EDT) WORKSTATION ID [id number] RAD Anatomical Region Laterality Modality Chest N/A Digital Radiogra phy Impressions 05/26/2024 4:06 PM EDT No acute findings . Resolution of postoperative findings Thank you for letting us participate in the care of this patient. ??If you are a health care provider and have any questions regarding this report, please contact the number below. ??For patients who have questions please contact the health resident care provider that requested your imaging first. ? Electronically signed by: Kailee Underwood MD, [facility] ([phone]), at 05/26/2024 4:06 PM Narrative 05/26/2024 4:06 [...] patients who have questions please contactthe health resident care provider that requested your imaging first. Chace Grijalva MD IMG DX ORDERABLES * XR Chest One View (05/06/2024 7:01 PM EDT) WORKSTATION ID [id number] RAD Anatomical Region Laterality Modality Chest N/A [...] who have questions please contact the health resident care provider that requested your imaging first. ? Electronically signed by: Chace Johnson MD, [facility] ([phone]), at 05/06/2024 7:27 PM Narrative 05/06/2024 7:27 [...] patients who have questions please contactthe health resident care provider that requested your imaging first. Electronically signed by: Chace Johnson MD, [facility]([phone]), at 05/06/2024 7:27 PM Chace Grijalva MD IMG DX ORDERABLES * Specimen to Pathology (05/06/2024 4:45 PM EDT) AP Specimen 05/06/2024 4:45 PM EDT 05/06/2024 4:[address] [facility] - 05/06/2024 4:45 PM EDT Specimen requisition ordered. ??Separate Pathology report to follow Authorizing Provider Result Andrzej Grijalva MD PATHOLOGY/CYTOLOGY ORDERABLES [facility] [place] [address] * Flow Cytometry Report (05/06/2024 4:44 PM EDT) Flow Cytometry Report [id number] ? Location: [facility]; DC23; A The signing pathologist has (i) examined [...] Chris Verified: ??05/09/2024 18:59 ??Hematopathologist Performed at: ??-[facility] Dept. of Pathology, [place] [address] Mfts: Inna Khan MD, FCAP, ??CLIA Certificate: [id number] DISCUSSION Blasts based on CD45 expression and [...] express Cd10 There is no increase in MK01-qpbyhvrj/ CD3-neg NK cells. Flow analysis is an ancillary study. A definite diagnosis requires correlation with the morphologic features of this process and if necessary, correlation with other ancillary studies like immunohistochemistr y, enzyme cytochemistry and/or cyto/ molecular genetics. This test was developed and its performance characteristics determined by the Clinical Flow Cytometry Laboratory at [facility]. It has not been cleared or [...] high complexity clinical laboratory testing. SPECIMEN PROCESSING [id number] Cells for immunophenotypic analysis were derived from surgical biopsy of thymus. CD45 vs side scatter gating was utilized to identify a lymphoid analysis region that comprises approximately 93% of all cells. The following markers were assessed: CD2, CD3, CD4, CD5, CD7, CD8, CD10, CD19, CD45, CD56, kappa light chain, and lambda light chain. CLINICAL INFORMATION mediastinal mass -thymus [facility] 05/06/2024 4:44 PM EDT Chace Grijalva MD PATHOLOGY/CYTOLOGY ORDERABLES Performing Organization Address [facility] [place] [address] * Immunophenotyping Flow Cytometry (05/06/2024 4:44 PM EDT) Immunophenotyping Flow See Comment [facility] Comment: When completed by the Pathologist, the Flow Cytometry Report ([id number]) will display under the Pathology Results section within eDH. Other Other / Unknown 05/06/2024 4 :44 PM EDT 05/06/2024 5:33 PM EDT Narrative Resulting Agency Comment Spec In Lab Authorizing Provider Result Andrzej Grijalva MD HEMATOLOGY ORDERABL ES Performing Organization Address City/[facility] [place] [address] * Specimen to Pathology (05/06/2024 4:18 PM EDT) AP Specimen 05/06/2024 4:18 PM EDT 05/06/2024 4:[address] [facility] - 05/06/2024 4:18 PM EDT Specimen requisition ordered. ??Separate Pathology report to follow Authorizing Provider Result Andrzej Grijalva MD PATHOLOGY/CYTOLOGY ORDERABLES Performing Organization Address City/[facility]/ZIP Co de Phone Number [facility] [place] [address] * (ABNORMAL) Surgical Pathology Report (05/06/2024 4:05 PM EDT) Final Diagnosis [id number] ? [facility]; A The signing pathologist has (i) examined [...] Verified: ??05/16/2024 9:56 ?? Pathologist Performed at: ??-[facility] Dept. of Pathology, [place] [address] Mfts: Inna Khan MD, FCAP, ??IA Certificate: [id number] SYNOPTIC Specimen ? Procedure: ??Thymectomy Tumor ? [...] ??C1-C3 ? Normal Block(s): ??C6 ? CAP [facility] 2021 Q1 Release DISCUSSION THIS RESULT [...] lymph nodes are grossly identified. Sections/Processi ng: Laboratory Immunologist sections in 1 cassette labeled B1. C [...] measuring up to 1.8 cm Sections/Processi ng: Laboratory Immunologist sections in 11 cassettes as follows: ?C1-C2: ??Mass with lateral-yellow and posterior-black ?C3-C4: ??Mass with posterior-black ?C5: ??Mass with posterior-black/l ateral-yellow/ant erior-blue ?C6: ??Superior-orange margin, perpendicular sections ?C7: ??Medial-red margin, perpendicular section ?C8: ??Inferior-green margin with anterior-blue/pos terior-black, perpendicular ? section ?C9: ??Single trisected lymph node ?C10: ??Single intact lymph node ?C11: ??Single intact candidate lymph ??Serafin) 05/16/2024 9:[address] [facility] THYMUS GLAND STRUCTURE / Unknown 05/06/2024 4:05 PM EDT 05/06/2024 4:05 PM EDT SOFT TISSUE MASS / Unknown 05/06/2024 4:05 PM EDT 05/06/2024 4:05 PM EDT THYMUS GLAND STRUCTURE / Unknown 05/06/2024 4:05 PM EDT 05/06/2024 4:05 PM EDT Chace Grijalva MD PATHOLOGY/CYTOLOGY ORDERABLES Performing Organization Address City/[facility]/[place] [address] * Specimen to Pathology (05/06/2024 4:05 PM EDT) AP Specimen 05/06/2024 4:05 PM EDT 05/06/2024 4:[address] [facility] - 05/06/2024 4:05 PM EDT Specimen requisition ordered. ??Separate Pathology report to follow Chace Grijalva MD PATHOLOGY/CYTOLOGY ORDERABLES Performing Organization Address City/[facility]/[place] [address] documented in this encounter Visit Diagnoses Diagnosis Mediastinal mass- Primary Swelling, mass, or lump in chest Mediastinal mass Swelling, mass, or lump in chest Mediastinal [...] Given 05/07/2024 1:46 AM EDT 2 .Inhalation BUpivacaine (pf) (Marcaine) (5 mg/mL) 0.5% injection PRN, Starting on Thu05/06/24 at 1715, Until Thu05/07/24 at 1205, Intra-Operative (Intra-Procedure), Routine Given 05/06/2024 5:15 PM EDT 30 mLs 19- Surgical Site buPROPion XL (Wellbutrin XL) tablet 150 mg [...] EVERY 8 HOURS SCHEDULED, First dose on 05/07/24 at 0200, Until Discontinued, Routine Given 05/07/2024 1:40 AM EDT 5,000 Units ketorolac (Toradol) (15 mg/mL) injection 15 mg 15 mg, Intravenous, EVERY 8 HOURS SCHEDULED, 6 doses, First dose on Thu05/06/24 at 2200, Last dose on Thu05/08/24 at 1400, Recovery (Recovery-Hospital Unit), Routine Given 05/07/2024 5:20 AM EDT 15 mg Given 05/06/2024 9:56 PM EDT 15 mg pantoprazole EC (Protonix) tablet 40 mg 40 mg, Oral, DAILY, First dose on 05/07/24 [...] Given 05/07/2024 1:38 AM EDT 5 mLs tamsulosin (Flomax) capsule 0.4 mg 0.4 mg, [...] Daniela Camarillo RN)0841 (Given - Provider: Tameka Fang, ISREAL) albuteroL (Proventil, Ventolin) (2.5 mg/3 mL) (0.083 %) nebulizer solution 2.5 mg 2.5 mg, Nebulization, EVERY 6 HOURS, First dose on Thu05/06/24 at 1930, Until Discontinued, Routine 2019 (Given - Provider: Daniela Camarillo RN) 013 [...] mL Mini-Bag Plus (COMPLETED) 2 g, Intravenous, OYSTER PREPARER TO O.R., 1 dose, On Thu05/06/24 at [...] injection 5,000 Units (COMPLETED) 5,000 Units, Subcutaneous, OYSTER PREPARER TO O.R., 1 dose, On Thu05/06/24 at [...] EVERY 8 HOURS SCHEDULED, First dose on 05/07/24 at 0200, Until Discontinued, Routine 0140 (Given [...] 10 mg), Oral, NIGHTLY, First dose on 05/07/24 at 2100, Until Discontinued mirtazapine (Remeron) tablet 30 mg 30 mg, Oral, NIGHTLY, First dose on 05/07/24 at 2100, Until Discontinued, Routine pantoprazole EC (Protonix) tablet 40 mg 40 mg, Oral, DAILY, First dose on 05/07/24 [...] Until 05/07/24 at 1205, Intra-Operative (Intra-Procedure), Routine 171 (Given - Provider: Chace Grijalva MD) lidocaine [...] use prochlorperazine or haloperidoL second, PACU Recovery 1833 (Given - Provider: Kati Campos, ISREAL)191 (Given - Provider: Tarsha Faustin, ISREAL) ondansetron (pf) (Zofran) (2 mg/mL) injection 4 mg 4 mg, Intravenous, EVERY 8 HOURS PRN, Starting on 05/07/24 at 0128, Until 05/07/24 at 1205, Nausea prochlorperazine (Compazine) (5 mg/mL) injection 10 mg 10 mg, Intravenous, EVERY 6 HOURS PRN, Starting on Thu05/06/24 at 2009, Until 05/07/24 at 1205, Nausea, [...] Routine documented in this encounter Care Teams Hat Parts Cutter Machine Relationship Specialty Start Date End Date Kenia Devine MD [address] [place] [address] [place] [address] PCP - General Family Medicine 06/02/22 documented as of this encounter
--- OUTSIDE RECORDS SUMMARY | 2024-07-07 11:44 | XMS_ITS | Clinical Summary ---
Author Organization [facility] Address [address] [place] [address] Care Team Providers Care Boat Canvas Installer Name Role Phone Kenia Devine MD Primary Care Provide r Allergies Active Allergy Reactions Criticality Noted Date Comments Hydrocodone-Acetaminophen 10/22/2022 Medications Medication Sig Dispensed Refills Start Date End Date Status gabapentin (NEURONTIN) 100 mg capsule Take by mouth 3 times daily. 10/08/2022 Active omeprazole (PRILOSEC) 40 mg capsule Take 1 Capsule by mouth. 05/01/2022 Active metoprolol SUCCinate 50 mg capsule,sprinkle,ER 24hr Take 50 mg by mouth. 06/04/2022 Active SYMBICORT 80-4.5 mcg/actuation HFA aerosol inhaler inhaler INHALE 2 PUFFS BY MOUTH TWO TIMES A DAY 10/10/2022 Active promethazine (PHENERGAN) 25 mg suppository INSERT ONE SUPPOSITORY RECTALLY EVERY 4 HOURS NEEDED FOR NAUSEA AND VOMITING 09/18/2022 Active baclofen (LIORESAL) 10 mg tablet Take 10 mg by mouth. 10/17/2021 Active mirtazapine (REMERON) 30 mg tablet 10/13/2022 Active melatonin 5 mg tablet Take 2 Tablets by mouth. Active ibuprofen (MOTRIN) 800 mg tablet Take 1 Tablet by mouth. 05/01/2022 Active ALBUTEROL INHL Inhale as directed. A ctive amitriptyline (ELAVIL) 50 mg tablet TAKE ONE TABLET BY MOUTH AT BEDTIME 30 Tablet 2 07/21/2023 Active Additional Information Patient taking differently: 75 mg, Reported on 09/16/2023 metFORMIN (GLUCOPHAGE) 500 mg tablet TAKE ONE TABLET BY MOUTH EVERY DAY WITH MEALS 08/22/2023 Active Encounters Date Type Department Care Team Description 06/15/2024 Lab Requisition [facility] Pathology & Laboratory Medicine - [address] [address] Outr Resulting Lab, Provider from Last 3 Months Social History Tobacco Use Types Packs/Day Years Used Date Smoking Tobacco: Never Passive Smoke Exposure: Never Smokeless Tobacco: Never Tobacco Cessation:Counseling Given: No Alcohol Use Standard Drinks/Week Comments Not Currently 0 (1 standard drink = 0.6 oz pur e alcohol) Interpersonal Safety Answer Date Record ed Physically Hurt Never 06/17/2020 Verbally Threaten Not on file 06/17/2020 Sex and Gender Information Value Date Recorded Sex Assigned at Not on file Gender Identity Male 03/13/2020 14:52 EDT Sexual Orientation Not on file Obstetrics History Last Filed Vital Signs Vital Sign Reading Time Taken Comments Blood Pressure 102/80 09/16/2023 1023 EDT Pulse 68 10/22/2022 0907 EST Temperature - - Respiratory Rate - - Oxygen Saturation - - Inhaled Oxygen Concentration - - Weight 123 kg (271 lb 3.2 oz) 09/16/2023 1023 ED T Height 177.8 cm (5' 10) 10/22/2022 0907 EST pt reported Body Mass Index 38.91 10/22/2022 0907 EST Plan of Treatment Health Maintenance Due Date Last Done Comments Hepatitis C Screen 1965 Hepatitis B Vaccine (1 of 3 - 19+ 3-dose series) 1983 COVID-19 Vaccine (2022-2 4 season) 2023 12/30/2021, 03/05/2021, 02/05/2021 Procedures Procedure Name Priority Date/Time Associated Diagnosis Comments VITAMIN D (25,OH) Routine 06/15/2024 7:03 EDT from Last 3 Months Results * VITAMIN D (25,OH) (06/15/2024 7:03 EDT) 25OH Vitamin D Tot 36 30 - 100 ng/mL 06/16/2024 12:06 EDT [facility] Comment: Vitamin D 25,OH Interpretive Ranges: Deficiency: ??<10.0 ng/mL Insufficiency: ??10.0 - 30.0 ng/mL Sufficiency: ??30.0 - 100.0 ng/mL Toxicity: ??>100.0 ng/mL Blood VENOUS BLOOD / Unknown 06/15/2024 7:03 EDT 06/15/2024 21:41 EDT Provider Outr Resulting Lab CHEMISTRY & BLOOD GAS ORDERABLES [facility] [address] [place] [address] from Last 3 Months Care Teams Boat Canvas Installer Relationship Specialty Start Date End Date Kenia Devine MD [address] [place] [address] [place] [id number] PCP - General Family Medicine - Hospital Medicine 10/22/22
--- OUTSIDE RECORDS SUMMARY | 2024-07-07 11:44 | XMS_ITS | Encounter Summary ---
Author Organization [facility] [place] [address] Care Team Providers Care Windsmith Name Role Phone Estefani Nicole MD Primary Care Provider + Encounter Details Date Type Department Care Team (Late st Contact Info) Description 07/02/2020 Telephone [place] [address] Mandi Almaraz Social History Tobacco Use Types Packs/Day Years Used Date Smoking Tobacco: Never Smokeless Tobacco: Never Sex and Gender Information Value Date Recorded Sex Assigned at Not on file Gender Identity Not on file Sexual Orientation Not on file documented as of this encounter Miscellaneous Notes * Telephone Encounter - Mandi Almaraz - 07/02/2020 8:23 AM EDT [facility] CLINICAL SAFETY CHECKLIST 07/02/2020 Mandi Garcia [address] [facility] [id number] : 1965 REFERRING PROVIDER: Maria Del Carmen Lutz APRN PRIMARY CARE PROVIDER: Estefani Nicole MD PRIMARY SYMPTOM (PROCEDURE INDICATION): nausea/vomiting SAFETY QUESTIONS FOR THE PATIENT IS THE PATIENT'S PRIMARY INSURANCE CARRIER [employer], CIGNA, AETNA, OR BLUE CROSS BLUE SHIELD? No MVP (if so, test is not covered; notify RMD and cancel referral) DOES THE PATIENT HAVE CROHN'S DISEASE (ULCERATIVE COLITIS IS OK)? no GASTROINTESTINAL SURGERY IN THE PAST THREE MONTHS? no HAS THE PATIENT HAD A GASTROINTESTINAL OBSTRUCTION, FISTULA, OR STRICTURE? Yes- needs EGD dilations HAS THE PATIENT HAD A GASTRIC BEZOAR? No PACEMAKER/DEFIBRILLATOR? No NEUROSTIMULATOR? no CAN THE PATIENT SWALLOW A PILL? NO NUT ALLERGY? Yes-Severe Sent message to RMD- not able to do testing due to answers above advised pt accordingly. documented in this encounter Plan of Treatment Not on file documented as of this encounter Visit Diagnoses Not on filedocumented in this encounter Care Teams Windsmith Relationship Specialty Start Date End Date Estefani Nicole MD [address] [place] [id number] PCP - General Family Medicine 10/19/19 12/22/21 documented as of this encounter
--- OUTSIDE RECORDS SUMMARY | 2024-07-07 11:44 | XMS_ITS | Encounter Summary ---
Author Organization [facility] [place] [address] Care Team Providers Care Scrip Clerk Name Role Phone Luh Dyer APRN Primary Care Provider [phone] Encounter Details Date Type Department Care Team (Latest Contact Info) Description 03/27/2018 - 03/27/2018 11:59 PM EDT Hospital Encounter [place] [address] Perez Rubalcava MD [facility] [place] [address] Discharge Disposition: Home Social History Tobacco Use Types Packs/Day Years Used Date Smoking Tobacco: Never Assessed Sex and Gender Information Value Date Recorded Sex Assigned at Not on file Gender Identity Not on file Sexual Orientation Not on file documented as of this encounter Medications at Time of Discharge Medication Sig Dispensed Refills Start Date End Date ARIPiprazole (ABILIFY) 5 mg Tablet 15 mg. 0 201701/09/2021 documented as of this encounter Plan of Treatment Not on file documented as of this encounter Procedures Procedure Name Priority Date/Time Associated Diagnosis Comments FILM LIBRARY STORAGE ONLY DX ABDOMEN Routine 03/27/2018 12:00 AM EDT documented in this encounter Results * Film Library- Storage Only DX Abdomen (03/27/2018 12:00 AM EDT) Narrative RAD - 04/16/2018 6:48 AM EDT This exam is for storage only and is auto-finalizing. Perez Rubalcava MD IMG FILM LIBRARY OR DERABLES [facility] [place], [place] documented in this encounter Visit Diagnoses Not on filedocumented in this encounter Care Teams Scrip Clerk Relationship Specialty Start Date End Date Luh Dyer APRN [address] [place] [address] [place] [address] PCP - General 10/08/10 10/18/19 documented as of this encounter
--- OUTSIDE RECORDS SUMMARY | 2024-07-07 11:44 | XMS_ITS | Encounter Summary ---
Author Organization [facility] Address [address] [place] [address] Care Team Providers Care Commercial Technician Name Role Phone Kenia Devine MD Primary Care Provide r Encounter Details Date Type Department Care Team (Late st Contact Info) Description 02/03/2024 Lab Requisition [facility] Pathology & Laboratory Medicine - Main [address] [address] Outr Resulting Lab, Provider Social History Tobacco Use Types Packs/Day Years Used Date Smoking Tobacco: Never Passive Smoke Exposure: Never Smokeless Tobacco: Never Alcohol Use Standard Drinks/Week Comments Not Currently 0 (1 standard drink = 0.6 oz pur e alcohol) Interpersonal Safety Answer Date Record ed Physically Hurt Never 06/17/2020 Verbally Threaten Not on file 06/17/2020 Sex and Gender Information Value Date Recorded Sex Assigned at Not on file Gender Identity Male 03/13/2020 14:52 EDT Sexual Orientation Not on file documented as of this encounter Plan of Treatment Not on file documented as of this encounter Procedures Procedure Name Priority Date/Time Associated Diagnosis Comments VITAMIN D (25,OH) Routine 02/03/2024 13: 23 EDT documented in this encounter Results * VITAMIN D (25,OH) (02/03/2024 13:23 EDT) 25OH Vitamin D Tot 36 30 - 100 ng/mL 02/04/2024 9:46 EDT [facility] Comment: Vitamin D 25,OH Interpretive Ranges: Deficiency: ??<10.0 ng/mL Insufficiency: ??10.0 - 30.0 ng/mL Sufficiency: ??30.0 - 100.0 ng/mL Toxicity: ??>100.0 ng/mL Blood VENOUS BLOOD / Unknown 02/03/2024 13:23 EDT 02/04/2024 0:07 EDT Provider Outr Resulting Lab CHEMISTRY & BLOOD GAS ORDERABLES [facility] [address] [place] [address] documented in this encounter Visit Diagnoses Not on filedocumented in this encounter Care Teams Commercial Technician Relationship Specialty Start Date End Date Kenia Devine MD [address] [place] [address] [place] [phone] PCP - General Family Medicine - [facility] Medicine 10/22/22 documented as of this encounter
--- OUTSIDE RECORDS SUMMARY | 2024-07-07 11:44 | XMS_ITS | Encounter Summary ---
Author Organization [facility] Address [address] [place] [address] Care Team Providers Care Apparel Manufacture Instructor Name Role Phone Kenia Devine MD Primary Care Provide r Reason for Referral * (Routine/Next Available) - Receiving Office to Obtain Authorization Specialty Diagnoses / Procedures Referred By Contac t Referred To Contact Procedures CT OUTSIDE IMAGES CHEST Unknown, ProviderMD Referral ID Status Reason Start Date Expiration Date Visits Requested Visits Authorized [id number] Receiving Office to Obtain Authorization 10/19/2023 1 1 Reason for Visit * (Routine/Next Available) - Receiving Office to Obtain Authorization Specialty Diagnoses / Procedures Referred By Contac t Referred To Contact Procedures CT OUTSIDE IMAGES CHEST Unknown, MD Dary Referral ID Status Reason Start Date Expiration Date Visits Requested Visits Authorized [id number] Receiving Office to Obtain Authorization 10/19/2023 1 1 Encounter Details Date Type Department Care Team (Latest Contact Info) Description 04/20/2023 - 04/20/2023 23:59 EDT Hospital Encounter [facility] Center [place] Discharge Disposition: Home or Self Care Social History Tobacco Use Types Packs/Day Years Used Date Smoking Tobacco: Never Smokeless Tobacco: Never Interpersonal Safety Answer Date Record ed Physically Hurt Never 06/17/2020 Verbally Threaten Not on file 06/17/2020 Sex and Gender Information Value Date Recorded Sex Assigned at Not on file Gender Identity Male 03/13/2020 14:52 EDT Sexual Orientation Not on file documented as of this encounter Medications at Time of Discharge Medication Sig Dispensed Refills Start Date End Date ALBUTEROL INHL Inhale as directed. baclofen (LIORESAL) 10 mg tablet Take 10 mg by mouth. 10/17/2021 gabapentin (NEURONTIN) 100 mg capsule Take by mouth 3 times daily. 10/08/2022 ibuprofen (MOTRIN) 800 mg tablet Take 1 Tablet by mouth. 05/01/2022 melatonin 5 mg tablet Take 2 Tablets by mouth. metoprolol SUCCinate 50 mg capsule,sprinkle,ER 24hr Take 50 mg by mouth. 06/04/2022 mirtazapine (REMERON) 30 mg tablet 10/13/2022 omeprazole (PRILOSEC) 40 mg capsule Take 1 Capsule by mouth. 05/01/2022 promethazine (PHENERGAN) 25 mg suppository INSERT ONE SUPPOSITORY RECTALLY EVERY 4 HOURS NEEDED FOR NAUSEA AND VOMITING 09/18/2022 SYMBICORT 80-4.5 mcg/actuation HFA aerosol inhaler inhaler INHALE 2 PUFFS BY MOUTH TWO TIMES A DAY 10/10/2022 amitriptyline (ELAVIL) 50 mg tablet TAKE ONE TABLET BY MOUTH AT BEDTIME 30 Tablet 2 01/26/2023 04/27/2023 documented as of this encounter Discharge Disposition Disposition Code Departure Means Destination Home or Self Care documented in this encounter Plan of Treatment Not on file documented as of this encounter Procedures Procedure Name Priority Date/Time Associated Diagnosis Comments CT OUTSIDE IMAGES CHEST Routine 04/20/2023 16:07 EDT documented in this encounter Results * CT OUTSIDE IMAGES CHEST (04/20/2023 16:07 EDT) Narrative 10/19/2023 16:07 EST This is a non-reportable exam. Provider Unknown MD GOETZ OTHER IMAGING OR DERABLES documented in this encounter Visit Diagnoses Not on filedocumented in this encounter Care Teams Apparel Manufacture Instructor Relationship Specialty Start Date End Date Kenia Devine MD [address] [place] [address] [place] [phone] PCP - General Family Medicine - [facility] Medicine 10/22/22 documented as of this encounter
--- OUTSIDE RECORDS SUMMARY | 2024-07-07 11:44 | XMS_ITS | Encounter Summary ---
Author Organization [facility] [place] [address] Care Team Providers Care Maintenance Controller Name Role Phone Estefani Nicole MD Primary Care Provider + Encounter Details Date Type Department Care Team (Late st Contact Info) Description 07/02/2020 Telephone [place] [phone] Shana Haq, CCMA Social History Tobacco Use Types Packs/Day Years Used Date Smoking Tobacco: Never Smokeless Tobacco: Never Sex and Gender Information Value Date Recorded Sex Assigned at Not on file Gender Identity Not on file Sexual Orientation Not on file documented as of this encounter Miscellaneous Notes * Telephone Encounter - Shana Haq - 07/02/2020 8:45 AM EDT Joe Garcia [id number] Diagnosis/Indication: EGD/colon with anesthesia. 4L Nulytely prep already sent to pharmacy (please send patient instructions). INDICATION: please obtain duodenal and colonic bx for vomiting and abdominal pain. please obtain duodenal and colonic bx. 1. Have you ever had a/an Upper Endoscopy & Colonoscopy before? No If yes, did you have any problems with the procedure? No What type of sedation was used: None 2. Do you take any Blood Thinners? No 3. Do you have a Pacemaker or Defibrillator device? No 4. Are you a diabetic? No 5. Do you have any Allergies to Eggs, Latex or Medications? Yes: In chart 6. Do you take any Oral Iron Supplements (Including multi-vitamins)? No 7. Do you have a history of [...] have changed* Estimated body mass index is 31.54 kg/m?? as calculated from the following: Height as of 12/06/19: 177.8 cm (5' 10). Weight as of 12/06/19: 99.7 kg (219 lb 12.8 oz). *Delete if not needed* Height: 5'10 Weight: 230 BMI: 33 Age:54 y.o. documented in this encounter Plan of Treatment Not on file documented as of this encounter Visit Diagnoses Not on filedocumented in this encounter Care Teams Maintenance Controller Relationship Specialty Start Date End Date Estefani Nicole MD [address] [place] [id number] PCP - General Family Medicine 10/19/19 12/22/21 documented as of this encounter
--- OUTSIDE RECORDS SUMMARY | 2024-07-07 11:44 | XMS_ITS | Encounter Summary ---
[place] [address] Care Team Providers Care Bending Frame Operator Name Role Phone Estefani Nicole MD Primary Care Provider + Reason for Referral * Diagnostic Test (Routine) - Closed Specialty Diagnoses / Procedures Referred By Dasia phelps Referred To Contact Radiology Diagnoses Nausea and vomiting, intractability of vomiting not specified, unspecified vomiting type Lower abdominal pain Procedures MRI Cholangiopancreatography Maria Del Carmen Lutz APRN [address] [place] [address] [facility] [place] [address] Referral ID Status Reason Start Date Expiration Date V isits Requested Visits Authorized [id number] Closed Specialty Service Requested 08/06/2020 02/02/2021 1 1 * Consultation (Routine) - Closed Specialty Diagnoses / Procedures Referred By Dasia phelps Referred To Contact Gastroenterology Diagnoses Nausea and vomiting, intractability of vomiting not specified, unspecified vomiting type Lower abdominal pain Smartpill for chronic nausea (no ARM requested) Procedures PRG GI TRANSIT & PRESSURE MEASUREMENT WIRELESS CAPSULE W/INTERP Smartpill (no ARM requested) Maria Del Carmen Lutz APRN [address] [place] [address] [facility] [address] [place] [address] Referral ID Status Reason Start Date Expiration Date V isits Requested Visits Authorized [id number] Closed Test Only 06/29/2020 06/29/2021 1 1 * Consultation (Routine) - Closed Specialty Diagnoses / Procedures Referred By Contflakito phelps Referred To Contact Gastroenterology Diagnoses Nausea and vomiting, intractability of vomiting not specified, unspecified vomiting type Lower abdominal pain Maria Del Carmen Lutz APRN [address] [place] [address] [facility] End[facility] [address] [place] [address] Referral ID Status Reason Start Date Expiration Date V isits Requested Visits Authorized [id number] Closed Consult, Test & Treat 06/29/2020 06/29/2021 1 1 Encounter Details Date Type Department Care Team (Latest Contact Info) Description 06/29/2020 11:30 AM EDT TH Visit (TeleHealth) [place] [phone] Maria Del Carmen Lutz APRN [address] [place] [address] Nausea and vomiting, intractability of vomiting not specified, unspecified vomiting type; Lower abdominal pain Social History Tobacco Use Types Packs/Day Years Used Date Smoking Tobacco: Never Smokeless Tobacco: Never Sex and Gender Information Value Date Recorded Sex Assigned at Not on file Gender Identity Not on file Sexual Orientation Not on file documented as of this encounter Patient Instructions * Patient Instructions* Maria Del Carmen Lutz APRN - 06/29/2020 11:30 AM EDT 1. Blood work at 8am at [facility] 2. Upper endoscopy and colonoscopy with anesthesia 3. MRCP. Please call radiology to schedule your imaging studies at the [facility]. Direct phone numbers: If you are scheduling an MRI, you can directly call: 4. Smart pill 5. Follow up with me in approximately 4 months after testing is complete documented in this encounter Progress Notes * Maria Del Carmen Lutz APRN - 06/29/2020 11:30 AM EDT GASTROENTEROLOGY TELEMEDICINE PROGRAM - ESTABLISHED PATIENT VISIT Chief Complaint: Joe Garcia is a 54 y[address] patient of Dr. Danielle guzman. provider found here for follow-up of Nausea with vomiting. Detailed history: Joe Garcia is a 54 y.o. male with a history significant for pyloric stenosis, depression/anxiety (managed by Dr. [facility] in [place]), and asthma. He was initially seen by me in 06/03/18 following a several year history of nausea with vomiting. He subsequently underwent a EGD at [facility] showing concern for pyloric stenosis. Dilitation was done. During our last appointment on 12/06/19 he had persistent vomiting episodes prior to the EGD. I recommended a repeat EGD. I called him multiple times after our last appointment with additionalrecommendations, but was unable to reach him. Interval history: Had EGD done a [facility]. they didn't find anything. Has been vomiting every day forthe past week. Went to the ER three times this week. May go up to 2 weeks Hematuria. Hyponatremia. Abdominal pain and cramping with fecal urgency. Continues to take advil several times a month. Denies dysphagia, odynophagia, and globus. Denies reflux. Review of systems: 14-point review of systems reviewed and negative except as above. Medications: Outpatient Medications Prior to Visit Medication Sig Dispense Refill ??? omeprazole (PriLOSEC) 20 mg Capsule, Delayed Release(E.C.) Take 20 mg by mouth daily. ??? ARIPiprazole (ABILIFY) 5 mg Tablet 0 ??? buPROPion (WELLBUTRIN XL) 150 mg Tablet [...] to dust & pollen filter mask [facial mask]; fish containing products; peanut; and shellfish containing products. Past Medical History: has no past medical history on file. Past Surgical History: has no past surgical history on file. Family History: family history is not on file. Social History: reports that he has never smoked. He has never used smokeless tobacco. No Physical Examination performed during this telemedicine visit Laboratory studies, imaging, and procedures (my review of prior records): 1. ABD u/s 03/27/18; normal findings 2. CT scan abd/pelvis with contrast 01/17/18 ([facility]); lung nodule- otherwise unrevealing 3. EGD 07/06/18 [facility]; pyloric stenosis with balloon diltation. 4. Colonoscopy by Dr. Clemens Assessment/Plan: Mr. Garcia is a 54 y.o. patient with nausea and vomiting. #Nausea with vomiting- He endorses persistent vomiting. Had repeat EGD done at [facility]. No significant findings per his report. Given the persistent nature of his symptoms it would be prudent to evaluate for pancreatobiliary etiology, and dysmotility. He may benefit from neuromodulation. I defer to his local team for prescribing based on appropriateness and preference. Recommendations: Testing to be done at [facility] prior to our next appointment. Labs -Labs to evaluate for dysmotility: TSH, A1C, TTG/IgA, igA, 8am cortisol Imaging -MRCP to evaluate for pancreatic/biliary etiology Endoscopy -EGD/colonoscopy with anesthesia to evaluate for PUD, obstruction, small bowel enteropathies, and IBD Motility -Smart pill for chronic nausea RTC 4 months after testing is complete Patient verbally consents to this telephone visit and understands that this visit may be billed, similar to a clinic office visit. I provided care to the patient today via telephone call, 28 minutes telephone visit was spent in discussion with patient on above. Maria Del Carmen Lutz APRN [facility] [place] [address] documented in this encounter Plan of Treatment Scheduled Referrals Name Type Priority Associated Diagnoses Orde r Schedule Referral to Gastroenterology Outpatient Referral Routine Nausea and vomiting, intractability of vomiting not specified, unspecified vomiting type Lower abdominal pain Ordered: 06/29/2020 Referral to Gastroenterology Outpatient Referral Routine Nausea and vomiting, intractability of vomiting not specified, unspecified vomiting type Lower abdominal pain Ordered: 06/29/2020 documented as of this encounter Results * IgA (08/16/2020 11:21 AM EDT) IgA 75 70 - 400 mg/dL [facility] Blood specimen (specimen) 08/16/2020 11:21 AM EDT 08/16/2020 11:37 AM EDT Narrative Resulting Agency Comment Spec In Lab Maria Del Carmen Lutz APRN CHEMISTRY ORDERA BLES Performing Organization Address City/[facility]/ZIP Co de Phone Number [facility] [place] [address] * Tissue transglutaminase, IgA (08/16/2020 11:21 AM EDT) TTG IgA Ab 0.3 0.1 - 10.0 u/ml [facility] Comment: Negative = <7 U/mL Equivocal = 7-10 U/mL Positive = >10 U/mL Blood specimen (specimen) 08/16/2020 11:21 AM EDT 08/16/2020 1:47 PM EDT Narrative Resulting Agency Comment Spec In Lab Maria Del Carmen Lutz APRN IMMUNOLOGY ORDER JEN [facility] [place] [address] * TSH (08/16/2020 11:21 AM EDT) Thyroid Stimulating Hormone 1.72 0.27 - 4.20 mcIU/mL [facility] Blood specimen (specimen) 08/16/2020 11:21 AM EDT 08/16/2020 11:37 AM EDT Narrative Resulting Agency Comment Spec In Lab Maria Del Carmen Willinghamsarah LEAD ELECTRICAL ENGINEER CHEMISTRY ORDERA BLES [facility] [place] [address] * Hemoglobin A1c (08/16/2020 11:21 AM EDT) Hemoglobin A1c 5.2 4.3 - 5.6 % [facility] Comment: Reference Range: 4.3 - 5.6% 5.7 - 6.4% - Increased Risk of Developing Diabetes Mellitus >= 6.5% - Consistent with diagnosis of Diabetes Mellitus In the absence of hyperglycemia (i.e. plasma glucose > 200 mg/dL) or classic symptoms of hyperglycemia a repeat measurement of HbA1c should be performed on a separate sample to confirm the diagnosis. Diagnosis and Classification of Diabetes Mellitus, Diabetes Care 2013; 36: Suppl. 1, S67-67 Estimated Average Glucose 104 mg/dL [facility] Comment: eAG equivalents for HbA1c percentages: HbA1c(%) ?eAG(mg/dL) 6.0 ?126 6.5 ?140 7.0 ?154 7.5 ?169 8.0 ?183 8.5 ?197 9.0 ?212 9.5 ?226 10.0 ? 240 Limitations: The eAG calculation has not been validated on women, individuals below 18 years old and above 70 years old, and individuals with hemoglobinopathies. Additional resources are available on the ADA website. Adan JOHANSEN, Sherron J, Abel R, et al. ??Translating the A1C assay into estimated average glucose values. ??Diabetes Care 2008:31(8):3986-8144. Blood specimen (specimen) 08/16/2020 11:21 AM EDT 08/16/2020 11:37 AM EDT Narrative Resulting Agency Comment Spec In Lab Maria Del Carmen Lutz LEAD ELECTRICAL ENGINEER CHEMISTRY ORDERA SUSY [facility] [place] [address] * MRI Cholangiopancreatography (08/07/2020 11:03 AM EDT) Anatomical Region Laterality Modality Magnetic Resonan ce Impressions 08/07/2020 11:39 AM EDT 1. ??Single 3 mm filling defect along the nondependent gallbladder wall, most likely a polyp or adherent gallstone. 2. ??Otherwise normal appearance of the biliary system and pancreatic ducts. I have personally reviewed the image(s) and the resident's interpretation and agree with the findings, Sherita Richardson MD at 08/07/2020 11:39 AM Thank you for letting us participate in the care of this patient. For questions regarding this report, please contact the number below. ? Electronically signed by: Sherita Richardson MD, [facility] ([phone]), at 08/07/2020 11:39 AM Narrative 08/07/2020 11:39 AM EDT EXAMINATION: MRI CHOLANGIOPANCREATOGRAPHY CLINICAL HISTORY: nausea and vomiting. ???pancreatobiliary cause for symptoms. TECHNIQUE: 3D-MRCP, axial and coronal 2D MRCP, axial T2 fast (turbo) spin-echo with fat saturation, axial 2D T1 weighted in/out phase. 3D MIPS were created. COMPARISON: Outside CT from 06/29/2020. FINDINGS: Liver: Normal size and T2 signal intensity. 5 mm T2 hyperintense well-circumscribed lesion in the posterior left hepatic margin, most consistent with a cyst (series 2 image 19, series 7 image 32). Bile ducts: Intrahepatic bile ducts are well visualized and normal in caliber. The common bile duct is normal caliber. No intraluminal filling defects. Gallbladder: 3 mm filling defect along the anterior gallbladder wall which could represent a adherent gallstone or polyp (series 3 image 18). Normal wall. No adjacent inflammation. Pancreas: Normal signal intensity. Pancreatic duct: Normal caliber and configuration. Spleen: Normal size and signal intensity. Adrenal glands: Normal. Kidneys: Left inferior pole exophytic cyst measuring 6 cm with a thin septation and no wall nodularity. Right interpolar cyst measuring 8 mm. No collecting system dilation. Bowel and mesentery: Non-dilated. No inflammatory changes. Normal appearance of the stomach. There is a small amount of T2 bright fluid in the duodenal bulb. Lymph nodes: No adenopathy. Osseous structures: No focal marrow signal abnormality. Procedure Note Sherita Richardson MD - 08/07/2020 EXAMINATION: MRI CHOLANGIOPANCREATOGRAPHY CLINICAL HISTORY: nausea and vomiting. ?pancreatobiliary cause forsymptoms. TECHNIQUE: 3D-MRCP, axial and coronal 2D MRCP, axial T2 fast (turbo)spin-echo with fat saturation, axial 2D T1 weighted in/out phase. 3D MIPS werecreated. COMPARISON: Outside CT from 06/29/2020. FINDINGS: Liver: Normal size and T2 signal intensity. 5 mm T2 hyperintense well-circumscribed lesion in the posterior left hepatic margin, mostconsistent with a cyst (series 2 image 19, series 7 image 32). Bile ducts: Intrahepatic bile ducts are well visualized and normal incaliber. The common bile duct is normal caliber. No intraluminal filling defects. Gallbladder: 3 mm filling defect along the anterior gallbladder wall whichcould represent a adherent gallstone or polyp (series 3 image 18). Normal wall.No adjacent inflammation. Pancreas: Normal signal intensity. Pancreatic duct: Normal caliber and configuration. Spleen: Normal size and signal intensity. Adrenal glands: Normal. Kidneys: Left inferior pole exophytic cyst measuring 6 cm with a thinseptation and no wall nodularity. Right interpolar cyst measuring 8 mm. Nocollecting system dilation. Bowel and mesentery: Non-dilated. No inflammatory changes. Normalappearance of the stomach. There is a small amount of T2 bright fluid in the duodenalbulb. Lymph nodes: No adenopathy. Osseous structures: No focal marrow signal abnormality. IMPRESSION 1. Single 3 mm filling defect along the nondependent gallbladder wall,most likely a polyp or adherent gallstone. 2. Otherwise normal appearance of the biliary system and pancreaticducts. I have personally reviewed the image(s) and the resident's interpretationand agree with the findings, Sherita Richardson MD at 08/07/2020 11:39 AM Thank you for letting us participate in the care of this patient. Forquestions regarding this report, please contact the number below. Electronically signed by: Sherita Richardson MD, [facility]([phone]), at 08/07/2020 11:39 AM Maria Del Carmen Lutz LEAD ELECTRICAL ENGINEER IMG MRI ORDERABL ES documented in this encounter Visit Diagnoses Diagnosis Nausea and vomiting, intractability of vomiting not specified, unspecified vomiting type Lower abdominal pain Abdominal pain, other specified site Nausea and vomiting, intractability of vomiting not specified, unspecified vomiting type Lower abdominal pain Abdominal pain, other specified site documented in this encounter Care Teams Bending Frame Operator Relationship Specialty Start Date End Date Estefani Nicole MD [address] [place] [address] PCP - General Family Medicine 10/19/19 12/22/21 documented as of this encounter
--- OUTSIDE RECORDS SUMMARY | 2024-07-07 11:44 | XMS_ITS | Encounter Summary ---
Author Organization [facility] Address [address] [place] [address] Care Team Providers Care Tapering Machine Operator Name Role Phone Kenia Devine MD Primary Care Provide r Encounter Details Date Type Department Care Team (Late st Contact Info) Description 10/09/2023 Lab Requisition [facility] Pathology & Laboratory Medicine - Main [address] [address] Outr Resulting Lab, Provider Social History Tobacco [...] Associated Diagnosis Comments VITAMIN D (25,OH) Routine 10/09/2023 14: 32 EST documented in this encounter Results * (ABNORMAL) VITAMIN D (25,OH) (10/09/2023 14:32 EST) 25OH Vitamin D Tot 27(L) 30 - 100 ng/mL 10/12/2023 10:[address] [facility] Comment: Vitamin D 25,OH Interpretive Ranges: Deficiency: ??<10.0 ng/mL Insufficiency: ??10.0 - 30.0 ng/mL Sufficiency: ??30.0 - 100.0 ng/mL Toxicity: ??>100.0 ng/mL Blood VENOUS BLOOD / Unknown 10/09/2023 14:32 EST 10/09/2023 21:06 EST Provider Outr Resulting Lab CHEMISTRY & BLOOD GAS ORDERABLES [facility] [address] [place] [address] documented in this encounter Visit Diagnoses Not on filedocumented in this encounter Care Teams Tapering Machine Operator Relationship Specialty Start Date End Date Kenia Devine MD [address] [place] [address] [place] [id number] PCP - General Family Medicine - [facility] 10/22/22 documented as of this encounter
--- OUTSIDE RECORDS SUMMARY | 2024-07-07 11:44 | XMS_ITS | Encounter Summary ---
Author Organization [facility] [place] [address] Care Team Providers Care Melt Helper Name Role Phone Estefani Nicole MD Primary Care Provider + Encounter Details Date Type Department Care Team (Late st Contact Info) Description 12/09/2019 Telephone [place] [address] Maria Del Carmen Lutz APRN [address] [place] [address] Social History Tobacco Use Types Packs/Day Years Used Date Smoking Tobacco: Never Smokeless Tobacco: Never Sex and Gender Information Value Date Recorded Sex Assigned at Not on file Gender Identity Not on file Sexual Orientation Not on file documented as of this encounter Miscellaneous Notes * Telephone Encounter - Maria Del Carmen Lutz APRN - 12/09/2019 8:57 AM EST Called patient following review by motility team. Left VM on cell phone to return call. Home phone line no longer working. In order to provide the best care possible, we highly recommend that he have his upper endoscopy done here at . It would be prudent to have 1 of our endoscopist evaluate as there is some inconsistent documentation in terms of the findings during the last upper endoscopy done at [facility]. We are also recommending that he have a colorectal cancer screening done at the time of his upper endoscopy. Additionally, we would like to check a serum cortisol level, TSH, A1c, and celiac panel. documented in this encounter Plan of Treatment Not on file documented as of this encounter Visit Diagnoses Not on filedocumented in this encounter Care Teams Melt Helper Relationship Specialty Start Date End Date Estefani Nicole MD [address] [place] [address] PCP - General Family Medicine 10/19/19 12/22/21 documented as of this encounter
--- OUTSIDE RECORDS SUMMARY | 2024-07-07 11:44 | XMS_ITS | Encounter Summary ---
Author Organization [facility] [place] [address] Care Team Providers Care Emts Name Role Phone Luh Dyer APRN Primary Care Provider [phone] Encounter Details Date Type Department Care Team (Late st Contact Info) Description 05/20/2019 Ancillary Procedure [facility] [place] [address] David Clemens MD [address] [place] [address] Social History Tobacco Use Types Packs/Day Years [...] Diagnosis Comments FILM LIBRARY STORAGE ONLY DX GI STUDY Routine 05/20/2019 12:00 AM EDT documented in this encounter Results * Film Library- Storage Only DX GI Study (05/20/2019 12:00 AM EDT) Narrative [facility] - 10/18/2019 8:56 PM EST This exam is auto-finalizing. It's purpose is for storage only. David Clemens MD IMG FILM LIBRARY ORD ERABLES [place], [place] documented in this encounter Visit Diagnoses Not on filedocumented in this encounter Care Teams Emts Relationship Specialty Start Date End Date Luh Dyer APRN [address] [place] [address] [place] [address] PCP - General 10/08/10 10/18/19 documented as of this encounter
--- OUTSIDE RECORDS SUMMARY | 2024-07-07 11:44 | XMS_ITS | Encounter Summary ---
Author Organization [facility] Address [facility] [place] [address] Care Team Providers Care Microsoft Dynamics Manager Architect Name Role Phone Estefani Nicole MD Primary Care Provider + Reason for Visit * Auth/Cert Specialty Diagnoses / Procedures Referred By Contflakito t Referred To Contact Diagnoses Abdominal pain EGD/colon with anesthesia. 4L Nulytely prep already sent to pharmacy (please send patient instructions). INDICATION: please obtain duodenal and colonic bx for vomiting and abdominal pain. please obtain duodenal and colonic bx. Procedures PRO UPPER GI ENDOSCOPY, DIAGNOSTIC PRO COLONOSCOPY, DIAGNOSTIC PRO ANESTH, UGI ENDOSCOPY NOS PRO ANESTH, LWR INTESTINE, NOS EGD, UPPER GI ENDOSCOPY COLONOSCOPY, DIAGNOSTIC Referral ID Status Reason Start Date Expiration Date Visits Re quested Visits Authorized [id number] 1 1 Encounter Details Date Type Department Care Team (Late st Contact Info) Description 08/31/2020 10:18 AM EDT Anesthesia [place] [address] Malachi Paulino MD [facility] [address] [place] [address] Anesthesia Record Procedure Summary Procedure Name Responsible Anesthesiologist Anesthesia Start Time Anesthesia Stop Time EGD WITH BIOPSY (WRVU 2.39) (Trunk) Malachi Paulino MD 08/31/20 1018 08/31/20 1117 Events Date Time Event Comment 08/31/2020 1018 AN Verify 1018 Start 1018 An Start Data 1019 1022 An Induction 1023 Anesthesia Ready 1100 an stop data 1117 Recovery or ICU Handoff Rosa ent care was transferred to the destination unit staff after review of the patient's medical history, current anesthetic/surgical status and plan, according to the Provider Handoff Checklist. 1117 Stop Meds Name Total IV Lidocaine 100 mg Propofol 200 mg Propofol INF 265 mg lactated ringers infusion 600 mL * Agents Name O2 Air N2O O2 Auxiliary Flowmeter 1 * Blood No blood administrations on file. Lines, Drains, and Airways Type Details Placement Removal (RETIRED) Peripheral IV Line - Single Lumen 08/31/20; 1016; median cubital vein (antecubital fossa), right; [id number] catheter system; 20 gauge; distraction, intradermal injection, tolerated well; no longer indicated; 08/31/20; 1128 08/31/20 1016 by Gladys Ortega RN 08/31/20 1128 by Janessa Griffiths RN documented in this encounter Social History [...] OR Notes * Anesthesia Postprocedure Evaluation - Malachi Paulino MD - 08/31/2020 11:46 AM EDT Department of Anesthesiology Post-procedure Note Patient: Joe Garcia Procedure Summary Date: 08/31/20 Room / Location: [facility] ENDO 2 / [facility] ENDOSCOPY Anesthesia Start: 1018 Anesthesia Stop: 1117 Procedures: EGD WITH BIOPSY (WRVU 2.49) (N/A Trunk) COLONOSCOPY, POLYPECTOMY, REMOVAL LESION BY SNARE (WRVU 4.67) (N/A Trunk) Diagnosis: (EGD/colon with anesthesia. 4L Nulytely prep already sent to pharmacy (please send patient instructions). INDICATION: please obtain duodenal and colonic bx for vomiting and abdominal pain. please obtain duodenal and colonic bx.) Surgeon: Perez Rubalcava MD Responsible Provider: Malachi Paulino MD Anesthesia Type: MAC ASA Status: 2 All Anesthesia Providers: Anesthesiologist: Malachi Paulino MD ENTERPRISE RESOURCE PLANNER: Venu Cho CRNA Vitals Value Taken Time BP 149/105 08/31/20 1130 Temp Pulse 89 08/31/20 1105 Resp SpO2 100 % 08/31/20 1131 Pain Level Vitals shown include unvalidated device data. Patient Location: PACU/SDP Level of Consciousness: Awake and Alert Pain Management: Satisfactory Analgesia PONV: None Cardiovascular Status: At Baseline and Hemodynamically Stable Respiratory Status: At Baseline and Room Air Postoperative Fluid Status: Intravascular EUvolemia Possible Anesthetic Complications: NONE apparent at time of evaluation Final Primary Anesthesia Type: MAC (The anesthetic type performed was the same as planned.) Comments: MALACHI PAULINO MD * Anesthesia Preprocedure Evaluation - Malachi Paulino MD - 08/31/2020 10:17 AM EDT Pre-Anesthesia Evaluation for: Joe Garcia a 55 y.o. male. Procedure(s): EGD, UPPER GI ENDOSCOPY COLONOSCOPY, DIAGNOSTIC There are no active problems to display for this patient. No past medical history on file. No past surgical history on file. Social History Tobacco Use ??? Smoking status: [...] home medications have been reviewed. Physical Exam: Patient Vitals for the past 24 hrs: Temp Pulse Resp BP SpO2 08/31/20 1009 36.6 ??C (97.9 ??F) 81 16 (!) 142/96 96 % There is no height or weight on file to calculate BMI. Airway Assessment: Mallampati: III TM distance: >3 FB Neck ROM: full Cardiovascular Assessment: Rate: normal Pulmonary Assessment: Dental Assessment: (+) upper dentures and lower dentures Comment: Partial lower Misc Assessment: IV access: Peripheral line Anesthesia Plan: ASA 2 MAC, with a(n) intravenous induction 55 yo male with hyperemesis for EGD and colo to evaluate. PMH: mild asthma and depression. No tobacco or marijuana. EGD at OSH with no anesthesia issue. NPO, no illness. Propofol, std monitors. Region - Other Informed Consent: Anesthetic plan and risks discussed with patient. Plan discussed with ENTERPRISE RESOURCE PLANNER. PAT Clinic Note documented in this encounter Plan of Treatment Not on file documented as of this encounter Visit Diagnoses Not on filedocumented in this encounter Administered Medications Inactive Administered Medications - up to 3 most recent administrations Medication Order MAR Action Action Date Dose Rate Site lactated ringers infusion 100 mL/hr, Intravenous, CONTINUOUS, Starting on Thu08/31/20 at 1030, Until Thu08/31/20 at 1129, Endoscopy (Day of Procedure) New Bag 08/31/2020 10:18 AM EDT lidocaine (PF) (XYLOCAINE) 100 mg/5 mL (2 %) injection PRN, Starting on Thu08/31/20 at 1022, Until Thu08/31/20 at 1117, Anesthesia Intra-op, Routine Given 08/31/2020 10:22 AM EDT 100 mg propofoL (Diprivan) 10 mg/mL bolus injection (Anesthesia) PRN, Starting on Thu08/31/20 at 1022, Until Thu08/31/20 at 1117, Anesthesia Intra-op Given 08/31/2020 10:51 AM EDT 30 mg Given 08/31/2020 10:49 AM EDT 20 mg Given 08/31/2020 10:42 AM EDT 50 mg propofoL (Diprivan) infusion CONTINUOUS PRN, Starting on Thu08/31/20 at 1022, Until Thu08/31/20 at 1117, Anesthesia Intra-op, Routine Rate/Dose Change 08/31/2020 10:33 AM EDT 100 mcg/kg/min 60 mL/hr Rate/Dose Change 08/31/2020 10:28 AM EDT 150 mcg/kg/min 90 mL/hr New Bag 08/31/2020 10:22 AM EDT 200 mcg/kg/min 120 mL/h r documented in this encounter Care Teams Microsoft Dynamics Manager Architect Relationship Specialty Start Date End Date Estefani Nicole MD [address] [place] [id number] PCP - General Family Medicine 10/19/19 12/22/21 documented as of this encounter
--- OUTSIDE RECORDS SUMMARY | 2024-07-07 11:44 | XMS_ITS | Encounter Summary ---
Author Organization [facility] Address [address] [place] [address] Care Team Providers Care Pet Ambassador Name Role Phone Kenia Devine MD Primary Care Provide r Reason for Visit * Reason Comments Medications Refill Encounter Details Date Type Department Care Team (Late st Contact Info) Description 01/24/2023 Refill [facility] Gastroenterology - [facility] [address], [place] [id number] Bhavana Lopez, HONING MACHINE OPERATOR [address] [facility], [address] [place] [id number] Medications Refill Social History Tobacco Use Types Packs/Day Years Used Date Smoking Tobacco: Never Smokeless Tobacco: Never Interpersonal Safety Answer Date Record ed Physically Hurt Never 06/17/2020 Verbally Threaten Not on file 06/17/2020 Sex and Gender Information Value Date Recorded Sex Assigned at Not on file Gender Identity Male 03/13/2020 14:52 EDT Sexual Orientation Not on file documented as of this encounter Ordered Prescriptions Prescription Sig Dispensed Refills Start Date End Da te amitriptyline (ELAVIL) 50 mg tablet TAKE ONE TABLET BY MOUTH AT BEDTIME 30 Tablet 2 01/26/2023 04/27/2023 documented in this encounter Miscellaneous Notes * Telephone Encounter - Mckayla Silva RN - 01/26/2023 1057 EDT Refilled amitriptyline 50 mg at bedtime as per notes on 10/22/22 and 10/24/22. Follow up scheduled for 04/22/23. documented in this encounter Plan of Treatment Not on file documented as of this encounter Visit Diagnoses Not on filedocumented in this encounter Discontinued Medications Medication Sig Discontinue Reason Start Date End Da te amitriptyline (ELAVIL) 50 mg tablet Take 1 Tablet by mouth at bedtime. 10/28/2022 01/26/2023 documented as of this encounter Care Teams Pet Ambassador Relationship Specialty Start Date End Date Kenia Devine MD [address] [place] [address] [place] [phone] PCP - General Family Medicine - [facility] Medicine 10/22/22 documented as of this encounter
--- OUTSIDE RECORDS SUMMARY | 2024-07-07 11:44 | XMS_ITS | Encounter Summary ---
Author Organization [facility] [place] [address] [place] [address] Care Team Providers Care Propellant Assembler Name Role Phone Estefani Nicole MD Primary Care Provider + Encounter Details Date Type Department Care Team ([facility] st Contact Info) Description 09/07/2020 Telephone [place] [address] Perez Rubalcava MD [facility] [place] [address] Social History Tobacco Use Types Packs/Day Years [...] encounter Miscellaneous Notes * Telephone Encounter - Perez Rubalcava MD - 09/07/2020 8:06 AM EDT I called Joe today to check on him - see overnight phone call - and let him know that his biopsies were unremarkable. He was not at home so I left him a message to contact me. documented in this encounter Plan of Treatment Not on file documented as of this encounter Visit Diagnoses Not on filedocumented in this encounter Care Teams Propellant Assembler Relationship Specialty Start Date End Date Estefani Nicole MD [address] [place] [address] PCP - General Family Medicine 10/19/19 12/22/21 documented as of this encounter
--- OUTSIDE RECORDS SUMMARY | 2024-07-07 11:44 | XMS_ITS | Encounter Summary ---
Author Organization [facility] [place] [address] Care Team Providers Care Smalltalk Developer Name Role Phone Estefani Nicole MD Primary Care Provider + Encounter Details Date Type Department Care Team (Latest Contact Info) Description 08/16/2020 11:45 AM EDT Laboratory Appointment Lab 3L [facility] [place] [address] Nausea and vomiting, intractability of vomiting not [...] Name Priority Date/Time Associated Diagnosis Comments HC TISSUE TRANSGLUTAMINASE AB Routine 08/16/2020 11:21 AM EDT Nausea and vomiting, intractability of vomiting not specified, unspecified vomiting type Lower abdominal pain HC VENIPUNCTURE Routine 08/16/2020 11:21 AM EDT Nausea and vomiting, intractability of vomiting not specified, unspecified vomiting type Lower abdominal pain HC HEMOGLOBIN A1C Routine 08/16/2020 11: 21 AM EDT Nausea and vomiting, intractability of vomiting not specified, unspecified vomiting type Lower abdominal pain HC IGA, SERUM Routine 08/16/2020 11:21 AM EDT Nausea and vomiting, intractability of vomiting not specified, unspecified vomiting type Lower abdominal pain CORTISOL Routine 08/16/2020 11:21 AM EDT documented in this encounter Results * Cortisol (08/16/2020 11:21 AM EDT) Cortisol 6.2 mcg/dL [facility] Comment: Reference ranges: ??AM (6-10am): ??4.8-19.5 mcg/dL ??PM (4-8pm) : ??2.5-11.9 mcg/dL Blood specimen (specimen) Venous Draw / Unknown 08/16/2020 11:21 AM EDT 08/16/2020 11:37 AM EDT Narrative Resulting Agency Comment Spec In Lab Maria Del Carmen Lutz APRN CHEMISTRY ORDERA SUSY [facility] [place] [address] * Hemoglobin A1c (08/16/2020 11:21 AM EDT) Pathologist [facility] Hemoglobin A1c 5.2 4.3 - 5.6 % [facility] Comment: Reference Range: [...] Mellitus, Diabetes Care 2013; 36: Suppl. 1, L21-70 Estimated Average Glucose 104 mg/dL [facility] Comment: eAG equivalents [...] into estimated average glucose values. ??Diabetes Care 2008:31(8):7014-1305. Blood specimen (specimen) 08/16/2020 11:21 AM EDT 08/16/2020 11:37 AM EDT Narrative Resulting Agency Comment Spec In Lab Maria Del Carmenkristie Willinghamsarah PRESSROOM WORKER CHEMISTRY ORDERA BLES Performing Organization Address [facility] Co de Phone Number [facility] [place] [address] * IgA (08/16/2020 11:21 AM EDT) Pathologist [facility] IgA 75 70 - 400 mg/dL [facility] Blood specimen (specimen) 08/16/2020 11:21 AM EDT 08/16/2020 11:37 AM EDT Narrative Resulting Agency Comment Spec In Lab Maria Del Carmen Willinghamsarah PRESSROOM WORKER CHEMISTRY ORDERA BLES Performing Organization Address [facility] Co de Phone Number [facility] [place] [address] * Tissue transglutaminase, IgA (08/16/2020 11:21 AM EDT) TTG IgA Ab 0.3 0.1 - 10.0 u/ml [facility] Comment: Negative = <7 U/mL Equivocal = 7-10 U/mL Positive = >10 U/mL Blood specimen (specimen) 08/16/2020 11:21 AM EDT 08/16/2020 1:47 PM EDT Narrative Resulting Agency Comment Spec In Lab Maria Del Carmen Lutz PRESSROOM WORKER IMMUNOLOGY ORDER JEN Performing Organization Address [facility] Co de Phone Number [facility] [place] [address] * TSH (08/16/2020 11:21 AM EDT) Thyroid Stimulating Hormone 1.72 0.27 - 4.20 mcIU/mL [facility] Blood specimen (specimen) 08/16/2020 11:21 AM EDT 08/16/2020 11:37 AM EDT Narrative Resulting Agency Comment Spec In Lab Maria Del Carmen Lutz PRESSROOM WORKER CHEMISTRY ORDERA BLES Performing Organization Address [facility] Co de Phone Number [facility] [place] [address] documented in this encounter Visit Diagnoses Diagnosis Nausea and vomiting, intractability of vomiting not specified, unspecified vomiting type Lower abdominal pain Abdominal pain, other specified site documented in this encounter Care Teams Smalltalk Developer Relationship Specialty Start Date End Date Estefani Nicole MD [address] [place] [address] PCP - General Family Medicine 10/19/19 12/22/21 documented as of this encounter
--- OUTSIDE RECORDS SUMMARY | 2024-07-07 11:44 | XMS_ITS | Encounter Summary ---
Author Organization [facility] [place] [address] Care Team Providers Care Client Portfolio Manager Name Role Phone Estefani Nicole MD Primary Care Provider + Encounter Details Date Type Department Care Team ([facility] st Contact Info) Description 08/20/2020 Telephone [place] [phone] Juan Jose Shook Social History Tobacco Use Types Packs/Day Years Used Date Smoking Tobacco: Never Smokeless Tobacco: Never Sex and Gender Information Value Date Recorded Sex Assigned at Not on file Gender Identity Not on file Sexual Orientation Not on file documented as of this encounter Miscellaneous Notes * Telephone Encounter - Juan Jose Shook - 08/20/2020 3:29 PM EDT Incoming call from patient. Questions about timing of colonoscopy prep. He has not yet received hisletter mailed in june. Answered some basic questions from patient and re-mailed prep instructionsand procedure confirmation. documented in this encounter Plan of Treatment Not on file documented as of this encounter Visit Diagnoses Not on filedocumented in this encounter Care Teams Client Portfolio Manager Relationship Specialty Start Date End Date Estefani Nicole MD [address] [place] [address] PCP - General Family Medicine 10/19/19 12/22/21 documented as of this encounter
--- OUTSIDE RECORDS SUMMARY | 2024-07-07 11:44 | XMS_ITS | Encounter Summary ---
[place] [address] Care Team Providers Care Tank Car Repairer Name Role Phone Estefani Nicole MD Primary Care Provider + Reason for Referral * Consultation (Routine) - Closed Specialty Diagnoses / Procedures Referred By Dasia phelps Referred To Contact Gastroenterology Diagnoses Cyclical vomiting without status migrainosus, not intractable Nausea and vomiting, intractability of vomiting not specified, unspecified vomiting type Nonintractable headache, unspecified chronicity pattern, unspecified headache type Maria Del Carmen Lutz APRN [address] [place] [address] [facility] Endoscopy [address] [place] [address] Referral ID Status Reason Start Date Expiration Date V isits Requested Visits Authorized [id number] Closed Consult, Test & Treat 10/30/2020 10/30/2021 1 1 * Diagnostic Test (Routine) - Closed Specialty Diagnoses / Procedures Referred By Dasia phelps Referred To Contact Radiology Diagnoses Cyclical vomiting without status migrainosus, not intractable Nausea and vomiting, intractability of vomiting not specified, unspecified vomiting type Nonintractable headache, unspecified chronicity pattern, unspecified headache type Procedures MRI Brain wwo Contrast (Generic) Maria Del Carmen Lutz APRN [address] [place] [address] [facility] [place] [address] Referral ID Status Reason Start Date Expiration Date V isits Requested Visits Authorized [id number] Closed Specialty Service Requested 10/30/2020 04/30/2022 1 1 Encounter Details Date Type Department Care Team (Latest Contact Info) Description 10/30/2020 10:00 AM EST Office [place] [address] Maria Del Carmen Lutz APRN [address] [address] Cyclical vomiting without status migrainosus, not intractable; Nausea and vomiting, intractability of vomiting not specified, unspecified vomiting type; Nonintractable headache, unspecified chronicity pattern, unspecified headache type Social History Tobacco Use Types Packs/Day [...] Sign Reading Time Taken Comments Blood Pressure 166/95 10/30/2020 9:55 AM EST Pulse 90 10/30/2020 9:55 AM EST Temperature - - Respiratory Rate - - Oxygen Saturation 100% 10/30/2020 9:55 AM EST Inhaled Oxygen Concentration - - Weight 105.1 kg (231 lb 12.8 oz) 10/30/2020 9:55 AM EST Height 177.8 cm (5' 10) 10/30/2020 9:55 AM EST Body Mass Index 33.26 10/30/2020 9:55 AM EST documented in this encounter Patient Instructions * Patient Instructions* Maria Del Carmen Lutz APRN - 10/30/2020 10:00 AM EST 1. MRI brain. Please call radiology to schedule your imaging studies at the [facility]. Main radiology scheduling line Direct phone numbers: If you are scheduling an MRI, you can directly call: 2. Endoscopic ultrasound 3. Stop advil. Please follow up with Dr. Nicole about headache management. 4. Follow up April 2021 documented in this encounter Progress Notes * Maria Del Carmen Lutz APRN - 10/30/2020 10:00 AM EST GASTROENTEROLOGY TELEMEDICINE PROGRAM - ESTABLISHED PATIENT VISIT Chief Complaint: Joe Garcia is a 55 y[address] of Dr[address] Danielle guzman. provider found here for follow-up of Nausea with vomiting. Detailed history: Joe Garcia is a 55 y.o. male with a history significant for depression/anxiety (managed by Dr. Collins [facility] in [place]), and asthma. He was initially seen by me in 06/03/18 following a several year history of nausea with vomiting. He subsequently underwent a EGD at [facility] showing concern for pyloric stenosis. Dilitation was done. During our appointment on 12/06/19 he had persistent vomiting episodes prior to the EGD. I recommended a repeat EGD. During his last appointment on 06/29/2020, he endorsed a recent EGD at [facility]. He continued to have vomiting every day and had been to the emergency room 3 times the week before our appointment. He continued to have abdominal pain and cramping. He continued to take Advil several times a month. Irecommended blood work, MRCP, EGD and colonoscopy, and a smart pill. Interval history: Has been to the ER several times since our last appointment Last visit to the ER on following dinner. Feels well between episodes of vomiting. Continues to take advil for headaches. Endorses fecal urgency on a daily basis. Recently prescribed metoclopramide and abilify for vomiting. Hasn't yet started. Review of systems: 14-point review of systems [...] mask [facial mask]; fish containing products; peanut; shellfish containing products; and vicodin [hydrocodone-acetaminophen]. Past Medical History: has no past medical history on file. Past Surgical History: has a past surgical history that includes Upper Gi Endoscopy, Biopsy ([id number])(N/A, 08/31/2020) and Colonoscopy, Lauro Nichols Snare ([id number]) (N/A, 08/31/2020). Family History: family history is not on file. Social History: reports that he has never smoked. He has never used smokeless tobacco. He reports previous alcohol use. He reports previous drug use. No Physical Examination performed during this telemedicine visit Laboratory studies, imaging, and procedures (my review of prior records): 1. ABD u/s 03/27/18; normal findings 2. CT scan abd/pelvis with contrast 01/17/18 ([facility]); lung nodule- otherwise unrevealing 3. EGD 07/06/18 [facility]; pyloric stenosis with balloon diltation. 4. Colonoscopy [...] Biopsies-colonic mucosa without diagnostic abnormality. Hyperplastic polyp. Assessment/Plan: Mr. Garcia is a 55 y.o. patient with nausea and vomiting. #CVS-continues to have cyclic vomiting episodes. Does not use cannabis. He does continue to take Advil for headache management. We discussed how NSAIDs are toxic to the GI tract. I have recommended that he follows up with his primary care provider to discuss other headache management options without the use of NSAIDs or aspirin products. He does feel well between episodes of vomiting. Work-up hasbeen unremarkable including an MRCP, 8 AM cortisol, celiac panel, EGD, colonoscopy, and small bowelfollow-through (with the exception of hypermobility in the small intestine). At this juncture, it would be prudent to evaluate for brain lesions or inflammation. It would be prudent to rule out pancreatic lesions as well. Recommendations: Testing to be done at [facility] prior to our next appointment. -MRI brain to evaluate for lesions -EUS to evaluate for pancreatic lesions MEDICATIONS for the local managing provider to consider (depending on appropriateness from a mentalhealth/non-GI standpoint as determined by the PCP; try aix-yv-r-time for at least ~90 days each before switching therapy, as long as tolerated) Step 1) consider amitriptyline 10mg at night, increase to 75-100mg as needed (possible side effectscan include drowsiness, dry mouth, constipation, sexual dysfunction, arrhythmias, and weight gain);reference: Gastroenterology. 2018 Jan;154(4):3276-9406.e1 Step 2) Consider topamax 100mg daily (possible side effects Include cognitive dysfunction, paresthesia, headache, fatigue, dizziness, mood problems, and loss of appetite). Step 3) consider aprepitant 80mg daily (NK1 antagonist), if ineffective can increase to 125mg daily(counseled on risks of fatigue, neutropenia, hypersensitivity, hepatotoxicity), references Am J Physiol Gastrointest Liver Physiol. 2017;313:G505-10 and Gastroenterology. 2018;154:65-76 RTC 6 months after testing is complete Maria Del Carmen Lutz APRN [facility] [place] [id number] documented in this encounter Plan of Treatment Scheduled Referrals Name Type Priority Associated Diagnoses Orde r Schedule Referral to Gastroenterology Outpatient Referral Routine Cyclical vomiting without status migrainosus, not intractable Nausea and vomiting, intractability of vomiting not specified, unspecified vomiting type Nonintractable headache, unspecified chronicity pattern, unspecified headache type Ordered: 10/30/2020 documented as of this encounter Results * MRI Brain wwo [...] ? Electronically signed by: Nishant Baxter MD, [facility] ([phone]), at 01/09/2021 9:50 AM Narrative 01/09/2021 9:50 AM EST EXAMINATION: MRI BRAIN WWO CONTRAST (GENERIC) CLINICAL HISTORY: Meningitis/VASCULAR NURSE infection suspected chronic nausea/vomiting TECHNIQUE: MRI of [...] MRI BRAIN WWO CONTRAST (GENERIC) CLINICAL HISTORY: Meningitis/VASCULAR NURSE infection suspected chronic nausea/vomiting TECHNIQUE: MRI of [...] this report, please contact the number below. Maria Del Carmen Wong Nelda PRESSURE VESSEL INSPECTOR IMG MRI ORDERABL ES documented in this encounter Visit Diagnoses Diagnosis Cyclical vomiting without status migrainosus, not intractable Variants of migraine, not elsewhere classified, without mention of intractable migraine without mention of status migrainosus Nausea and vomiting, intractability of vomiting not specified, unspecified vomiting type Nonintractable headache, unspecified chronicity pattern, unspecified headache type Cyclical vomiting without status migrainosus, not intractable Variants of migraine, not elsewhere classified, without mention of intractable migraine without mention of status migrainosus Nausea and vomiting, intractability of vomiting not specified, unspecified vomiting type Nonintractable headache, unspecified chronicity pattern, unspecified headache type documented in this encounter Care Teams Tank Car Repairer Relationship Specialty Start Date End Date Estefani Nicole MD [address] [place] [address] PCP - General Family Medicine 10/19/19 12/22/21 documented as of this encounter
--- OUTSIDE RECORDS SUMMARY | 2024-07-07 11:44 | XMS_ITS | Encounter Summary ---
[place] [address] Care Team Providers Care Occasional Caregiver Name Role Phone DyerLuh barnett STACY Primary Care Provider [phone] Reason for Visit * Reason Comments GI Problem * Consultation (Routine) - Specialty Diagnoses / Procedures Referred By Dasia phelps Referred To Contact Gastroenterology Diagnoses Nausea and vomiting Procedures Consult Estefani Nicole MD [address] [place] [address] [facility] [place]astro [address] [place] [address] Referral ID Status Reason Start Date Expiration Date V isits Requested Visits Authorized [id number] 04/15/2018 04/15/2019 1 1 Encounter Details Date Type Department Care Team (Latest Contact Info) Description 06/03/2018 11:00 AM EDT Office [place] [address] Maria Del Carmen Lutz APRN [address] [place] [address] Gastroesophageal reflux disease, esophagitis presence not specified; Dyspepsia; Nausea and vomiting, intractability of vomiting not specified, unspecified vomiting type; Diarrhea, unspecified type; Dysphagia, unspecified type Social History Tobacco Use Types Packs/Day Years Used Date Smoking Tobacco: Never Smokeless Tobacco: Never Sex and Gender Information Value Date Recorded Sex Assigned at Not on file Gender Identity Not on file Sexual Orientation Not on file documented as of this encounter Last Filed Vital Signs Vital Sign Reading Time Taken Comments Blood Pressure 123/93 06/03/2018 10:52 AM EDT Pulse 75 06/03/2018 10:52 AM EDT Temperature - - Respiratory Rate - - Oxygen Saturation - - Inhaled Oxygen Concentration - - Weight 100.2 kg (221 lb) 06/03/2018 10:52 AM EDT Height 177.8 cm (5' 10) 06/03/2018 10:52 AM EDT Body Mass Index 31.71 06/03/2018 10:52 AM EDT documented in this encounter Patient Instructions * Patient Instructions* Maria Del Carmen Lutz APRN - 06/03/2018 11:00 AM EDT 1. Upper endoscopy. Please send me a message about 3-4 weeks after the upper endoscopy. 2. Change timing of omeprazole to 30-60 minutes prior to eating first meal of the day. 3. At the onset of symptoms: Take Lorazepam 0.5mg and ondansetron ODT 4mg. May repeat ondansetron x1 if no benefit after 30 minutes Then: Lorazepam 0.5mg every 8 hours as needed and ondansetron ODT 4mg every 8 hours as needed. May repeat ondansetron dose x 1 if no benefit after 30 minutes 4. Low-FODMAP diet for 2-4 weeks. Gradually reintroduce one food at a time to identify triggers. ADDITIONAL RESOURCES: *The [facility] has a wonderful barrera available for this diet *We also recommend a blog called [email or web address]. Follow up as needed pending results of upper endoscopy documented in this encounter Progress Notes * Maria Del Carmen Lutz APRN - 06/03/2018 11:00 AM EDT LEGAL FILE CLERK: Maria Del Carmen Lutz APRN PCP: Luh Dyer APRN REQUESTING PROVIDER: Estefani Nicole MD REASON FOR CONSULTATION This is a 52 y.o. male with a history significant for asthma. I am seeing him as a new patient today in consult for nausea and vomiting. GI PROBLEM LIST 1. NAUSEA with vomiting --ABD u/s 03/27/18; normal findings --CT scan abd/pelvis with contrast 01/17/18 ([facility]); lung nodule- otherwise unrevealing HPI COMMENTS Onset of symptoms several years ago. Typically has one episodic day per year. Symptoms start with normal bowel movement, followed by upset stomach and nausea with vomiting. Willstart vomiting multiple times until it develops into dry heaving. Has been in the ER six times in the past six weeks. Ondansetron ODT and compazine supp was not helpful. There was one IV medication that helped with the abdominal spasms while he was in the hospital. Abdominal cramping associated with episodes. Fecal urgency. Denies fecal incontinence. Had a colonoscopy approximately 4 years ago. Endorses a small hyperplastic polyp. Dysphagia to solids. Coughing and choking at times. He gags a lot as well. Sensation of food becoming lodged in his esophagus. Regurgitation. Takes omeprazole at bedtime for many years. Denies refluxsymptoms. Some days he does have nausea, but usually an hour after I eat breakfast. Has never hadan EGD. Bloating and gas. I do fart quite a bit. Advil for headaches. He admits to taking this maybe once per month. No anemia. Denies unintentional weight loss. Occasional diarrhea. Stools are usually an off yellowing color. Straining and difficulty emptyingat times. Denies constipation. Denies blood and mucus in stool. Abdominal ultrasound in March was normal. CT scan in January was normal. No other testing has been donefor this issue. Feels feverish during these episodes. Has checked his temperature during these episodes and is afebrile. ROS Notable for the gastrointestinal symptoms as described above. CONSTITUTIONAL: Denies anorexia, fever, or unintended weight change EYES: Denies red or painful eyes ENT: See HPI. RESPIRATORY: Denies cough, shortness of breath, wheezing CV: Denies palpitations, chest pain. : Difficulty starting a stream. MUSC/SKELETAL: Denies chronic joint pains or history of inflammatory arthritis. INTEGUMENTARY: Denies recent skin rash or lesions. NEURO: Denies neuropathy, loss of sensation, facial drooping or unilateral weakness. PSYCH: Depression. ENDO: Denies frequent urination and excessive hunger or thirst. HEM/LYMPH: Denies easy bleeding or bruising. ALL/IMMUNO: Seasonal allergies. Denies frequent colds. ALLERGIES Allergies Allergen Reactions ? ? Dust & Pollen Filter Mask [Facial Mask] Other (See Comments) rhinositis ??? Fish Containing Products Nausea And Vomiting ??? Peanut Anaphylaxis ??? Shellfish Containing Products Nausea And Vomiting CURRENT MEDICATIONS Medications reviewed and reconciled in e-DH Current Outpatient Prescriptions: ??? ARIPiprazole (ABILIFY) 5 mg Tablet, , Disp: , Rfl: 0 ??? buPROPion (WELLBUTRIN XL) 150 mg Tablet Extended Release 24 hr, , Disp: , Rfl: 0 ??? buPROPion (WELLBUTRIN XL) 300 mg Tablet Extended Release 24 hr, , Disp: , Rfl: 0 ??? mirtazapine (REMERON) 15 mg Tablet, , Disp: , Rfl: 0 ??? risperiDONE (RISPERDAL) 1 mg Tablet, , Disp: , Rfl: 0 ??? sertraline (ZOLOFT) 100 mg Tablet, , Disp: , Rfl: 0 ??? omeprazole (PRILOSEC) 40 mg Capsule, Delayed Release(E.C.), , Disp: , Rfl: 0 ??? PROAIR HFA 90 mcg/actuation HFA Aerosol Inhaler, INHALE 2 PUFFS EVERY 4 HOURS, Disp: , Rfl: 0 ??? EPINEPHrine (ADRENALIN) 0.1 mg/mL (1:10,000) Syringe, Inject as directed., Disp: , Rfl: ??? budesonide-formoterol (SYMBICORT) 80-4.5 mcg/actuation HFA Aerosol Inhaler, Inhale into the lungs., Disp: , Rfl: ??? LORazepam (ATIVAN) 0.5 mg Tablet, Take 0.5 mg by mouth every 6 hours as needed for Anxiety., Disp: , Rfl: ??? melatonin 5 mg Tablet, Take 10 mg by mouth nightly., Disp: , Rfl: MEDICAL HISTORY 1. Depression SURGICAL HISTORY 1. Right inguinal hernia repair SOCIAL HISTORY Currently works in [employer]. Single. Has no kids. HABITS Denies tobacco use. Occasional alcohol use. Denies using other substances. FAMILY HISTORY Mother- unclear origin of cancer Father- lung cancer Denies family history of celiac disease, esophageal cancer, stomach cancer, colon cancer, pancreatic or liver issues, and IBD. PHYSICAL EXAM: Most Recent Vitals: 06/03/18 1052 BP: (!) 123/93 Pulse: 75 Height: Height: 177.8 cm (5' 10) Weight: Weight: 100.2 kg (221 lb) Body mass index is 31.71 kg/(m^2). GENERAL: Healthy-appearing in no acute distress. Appears stated age. Appropriate weight for height. SKIN: No lesions, rashes, lumps, or angiomas on exposed skin. NECK: No adenopathy. No thyromegaly. HEENT: PERRL, EOMI, mucosa clear without ulceration or lesions, normal Dentition LUNGS: Clear to auscultation bilaterally COR: Regular, normal S1 and S2 without murmurs. ABD: Tympanic. Normal active BS. Soft, non-distended. No bruits. No tenderness to deep palpation inall 4 quadrants. No organomegaly. EXT: No cyanosis, clubbing, or edema. NEURO: Alert and oriented to person, place, time, and situation. Cranial nerves II-XII intact. PSYCH: Mood appropriate. Good eye contact. Normal interaction. Answers all questions appropriately. LABS: ASSESSMENT 1. TING with overlapping dyspepsia Long history of reflux symptoms. Has been taking PPI at bedtime. Recommend changing the timing of his medication to 30-60 minutes prior to eating first meal of the day to increase efficacy by approximately 60%. Recommend EGD. He would like to have this done closer to home. Consider utility of BravopH. Consider utility of GES. Abdominal ultrasound normal. Consider HIDA scan. Ddx: GERD, gastritis/gastropathy, PUD, FD, gastroparesis, bile acid reflux 2. NAUSEA with vomiting Recommend EGD. Consider utility of GES. Consider obstruction, although this seems less likely giventhe constellation of symptoms. Consider utility of KUB. He has lorazepam available at home. Recommend ondansetron/lorazepam for acute symptoms. Ddx: gastritis/gastropathy, gastroparesis, CVS, obstructive etiology 3. DIARRHEA Does not meet SAMRA IV criteria for IBS. Recommend low-FODMAP diet. Literature reviewed and provided. Consider utility of KUB. Consider utility of HBT. Last colonoscopy approximately 4 years ago. Willobtain these records. Ddx: IBS, IBD, CD, post-infectious diarrhea, SIBO/dysbiosis, functional diarrhea 4. DYSPHAGIA Unclear etiology. Recommend EGD. Consider utility of barium swallow versus HREM. Ddx: oropharyngeal dysphagia, GERD, IEM, nutcracker esophagus, jackhammer esophagus, RAND PLAN 1. EGD 2. Omeprazole 20mg once daily 30-60 minutes prior to eating first meal of the day. 3. At the onset of symptoms: Take Lorazepam 0.5mg and ondansetron ODT 4mg. May repeat ondansetron x1 if no benefit after 30 minutes Then: Lorazepam 0.5mg every 8 hours as needed and ondansetron ODT 4mg every 8 hours as needed. May repeat ondansetron dose x 1 if no benefit after 30 minutes 4. Low-FODMAP diet x 2-4 weeks. Gradually reintroduce one food at a time to identify triggers. 5. GIF as needed pending results of EGD. I have provided him with my contact information. He has been encouraged to contact me with any questions or concerns. TIME SPENT WITH PATIENT 55 minutes of this 60 minute visit were spent in [id number] discussion and counseling the patientas detailed per above. Signed, Maria Del Carmen Lutz APRN 06/03/18 12:03 PM Section of Gastroenterology & Hepatology [facility] documented in this encounter Plan of Treatment Not on file documented as of this encounter Visit Diagnoses Diagnosis Gastroesophageal reflux disease, esophagitis presence not specified Dyspepsia Dyspepsia and other specified disorders of function of stomach Nausea and vomiting, intractability of vomiting not specified, unspecified vomiting type Diarrhea, unspecified type Dysphagia, unspecified type documented in this encounter Care Teams Occasional Caregiver Relationship Specialty Start Date End Date Luh Dyer APRN [address] [place] [address] [place] [address] PCP - General 10/08/10 10/18/19 documented as of this encounter
--- OUTSIDE RECORDS SUMMARY | 2024-07-07 11:44 | XMS_ITS | Encounter Summary ---
Author Organization Formerly [facility] [place] [address] Care Team Providers Care Banking Analyst Name Role Phone Estefani Nicole MD Primary Care Provider + Encounter Details Date Type Department Care Team (Late st Contact Info) Description 07/03/2020 Orders [place] [address] Maria Del Carmen Lutz, LEAD WAREHOUSE ASSOCIATE [address] [place] [address] Nausea and vomiting, intractability of vomiting not [...] documented as of this encounter Results * XR Fluoro Small Bowel Only (08/16/2020 10:46 AM EDT) Anatomical Region Laterality Modality Abdomen N/A Radio Fluoroscop y Impressions 08/16/2020 12:50 PM EDT Normal small bowel follow through. I have personally reviewed the image(s) and the resident's interpretation and agree with the findings, Juliane Pendleton MD at 08/16/2020 12:50 PM Thank you for letting us participate in the care of this patient. For questions regarding this report, please contact the number below. ? Electronically signed by: Juliane Pendleton MD, [facility] ([phone]), at 08/16/2020 12:50 PM Narrative 08/16/2020 12:50 PM EDT EXAMINATION: XR FLUORO SMALL BOWEL ONLY CLINICAL HISTORY: nausea. SBFT ordered specifically to evaluate small intestinal transit time to cecum. ??Please evaluate for stricturing. TECHNIQUE: Prior to administration of single or contrast agent, parts sales associate images of the abdomen were obtained. Single contrast small bowel follow through was performed and overhead and fluoroscopic spot films were obtained. Fluoro time: 2.15 minutes COMPARISON: CT abdomen and pelvis 06/29/2020 FINDINGS: Landcare Facilitator: Nonobstructive bowel gas pattern. Air and fecal material in nondilated colon to the level of the rectum. Nondilated small bowel. Lung bases are clear. There is prompt gastric emptying. The small bowel is normal in course and caliber. The terminal ileum is well-visualized within the right lower quadrant. Normal small bowel fold pattern. Normal bowel peristalsis. No small bowel stricture or lesion identified. Transit time to the colon was 55 minutes. Procedure Note Juliane Pendleton MD - 08/16/2020 EXAMINATION: XR FLUORO SMALL BOWEL ONLY CLINICAL HISTORY: nausea. SBFT ordered specifically to evaluate smallintestinal transit time to cecum. Please evaluate for stricturing. TECHNIQUE: Prior to administration of single or contrast agent, parts sales associate images of theabdomen were obtained. Single contrast small bowel follow through was performed and overheadand fluoroscopic spot films were obtained. Fluoro time: 2.15 minutes COMPARISON: CT abdomen and pelvis 06/29/2020 FINDINGS: Landcare Facilitator: Nonobstructive bowel gas pattern. Air and fecal material innondilated colon to the level of the rectum. Nondilated small bowel. Lung bases areclear. There is prompt gastric emptying. The small bowel is normal in course and caliber. The terminal ileum is well-visualized within the right lower quadrant. Normal small bowel fold pattern. Normal bowel peristalsis. No small bowel stricture or lesion identified. Transit time to the colon was 55 minutes. IMPRESSION Normal small bowel follow through. I have personally reviewed the image(s) and the resident's interpretationand agree with the findings, Juliane Pendleton MD at 08/16/2020 12:50PM Thank you for letting us participate in the care of this patient. Forquestions regarding this report, please contact the number below. Maria Del Carmen Lutz LEAD WAREHOUSE ASSOCIATE IMG FLUORO ORDER JEN documented in this encounter Visit Diagnoses Diagnosis Nausea and vomiting, intractability of vomiting not specified, unspecified vomiting type Nausea and vomiting, intractability of vomiting not specified, unspecified vomiting type documented in this encounter Care Teams Banking Analyst Relationship Specialty Start Date End Date Estefani Nicole MD [address] [place] [address] PCP - General Family Medicine 10/19/19 12/22/21 documented as of this encounter
--- OUTSIDE RECORDS SUMMARY | 2024-07-07 11:44 | XMS_ITS | Encounter Summary ---
Author Organization Formerly [facility] Address [facility] [place] [address] Care Team Providers Care Resident Advisor Name Role Phone Luh Dyer APRN Primary Care Provider [phone] Reason for Visit * Reason Comments Chest Pain Encounter Details Date Type Department Care Team (Late st Contact Info) Description 12/02/2011 8:15 AM EST Office Visit [address] [place] [address] Isra Morris MD [facility] [place] [address] CAD (coronary artery disease) (Primary Dx) Social History Tobacco Use Types Packs/Day Years Used Date Smoking Tobacco: Never Assessed Sex and Gender Information Value Date Recorded Sex Assigned at Not on file Gender Identity Not on file Sexual Orientation Not on file documented as of this encounter Progress Notes * Arlene Alvarez - 12/05/2011 2:07 PM EST * Isra Morris - 12/02/2011 8:55 AM EST Subjective: Patient ID: Joe Garcia is a 46 y.o. male. HPI ROS Objective: Physical Exam Assessment and Plan: No problem-specific visit notes found for this encounter. Scanned note documented in this encounter Procedure Notes * Provider, Kierra - 12/16/2011 1:51 PM ESTAssociated Order(s): SCAN DOC: LAB documented in this encounter Plan of Treatment Not on file documented as of this encounter Procedures Procedure Name Priority Date/Time Associated Diagnosis Comments LAB SCAN 12/16/2011 1:51 PM EST documented in this encounter Results * SCAN DOC: LAB (12/16/2011 1:51 PM EST) Narrative 12/16/2011 1:51 PM EST Procedure Note Provider, Scanning - 12/16/2011 1:51 PM EST Scanning Provider MEDIA MGR SCAN EXT O RDR/RSLT documented in this encounter Visit Diagnoses Diagnosis CAD (coronary artery disease)- Primary Coronary atherosclerosis of unspecified type of vessel, [place] or graft documented in this encounter Care Teams Resident Advisor Relationship Specialty Start Date End Date Luh Dyer APRN [address] [place] [address] [place] [address] PCP - General 10/08/10 10/18/19 documented as of this encounter
--- OUTSIDE RECORDS SUMMARY | 2024-07-07 11:44 | XMS_ITS | Encounter Summary ---
Author Organization [facility] Address [address] [place] [address] Care Team Providers Care Video Rental Clerk Name Role Phone Kenia Devine MD Primary Care Provide r Reason for Referral * (Routine/Next Available) - Receiving Office to Obtain Authorization Specialty Diagnoses / Procedures Referred By Contac t Referred To Contact Procedures CT OUTSIDE IMAGES CHEST Unknown, ProviderMD Referral ID Status Reason Start Date Expiration Date Visits Requested Visits Authorized [id number] Receiving Office to Obtain Authorization 10/19/2023 1 1 Reason for Visit * (Routine/Next Available) - Receiving Office to Obtain Authorization Specialty Diagnoses / Procedures Referred By Contac t Referred To Contact Procedures CT OUTSIDE IMAGES CHEST Unknown, MD Dary Referral ID Status Reason Start Date Expiration Date Visits Requested Visits Authorized [id number] Receiving Office to Obtain Authorization 10/19/2023 1 1 Encounter Details Date Type Department Care Team (Latest Contact Info) Description 08/18/2023 - 08/18/2023 23:59 EDT Hospital Encounter [facility] Secondary Reads [place] Discharge Disposition: Home or [...] End Date ALBUTEROL INHL Inhale as directed. amitriptyline (ELAVIL) 50 mg tablet TAKE ONE TABLET BY MOUTH AT BEDTIME 30 Tablet 2 07/21/2023 baclofen (LIORESAL) 10 mg tablet Take 10 [...] BY MOUTH TWO TIMES A DAY 10/10/2022 documented as of this encounter Discharge Disposition Disposition Code Departure Means Destination Home or Self Care documented in this encounter Plan of Treatment Not on file documented as of this encounter Procedures Procedure Name Priority Date/Time Associated Diagnosis Comments CT OUTSIDE IMAGES CHEST Routine 08/18/2023 16:07 EDT documented in this encounter Results * CT OUTSIDE IMAGES CHEST (08/18/2023 16:07 EDT) Narrative 10/19/2023 16:07 EST This is a non-reportable exam. Provider Unknown MD GOETZ OTHER IMAGING OR DERABLES documented in this encounter Visit Diagnoses Not on filedocumented in this encounter Care Teams Video Rental Clerk Relationship Specialty Start Date End Date Kenia Devine MD [address] [place] [address] [place] [phone] PCP - General Family Medicine - [facility] Medicine 10/22/22 documented as of this encounter
--- OUTSIDE RECORDS SUMMARY | 2024-07-07 11:44 | XMS_ITS | Encounter Summary ---
Author Organization [facility] Address [address] [place] [address] Care Team Providers Care Supervisor Poultry Hatchery Name Role Phone Kenia Devine MD Primary Care Provide r Reason for Visit * Reason Comments Follow-up Cyclic vomiting synd marry Encounter Details Date Type Department Care Team (Late st Contact Info) Description 09/16/2023 10:40 EDT Office Visit [facility] Gastroenterology - [address] [phone] Bhavana Lopez, JESSICA [address] [facility], [address] [place] [address] Cyclic vomiting syndrome (Primary Dx) Social History Tobacco Use Types [...] Blood Pressure 102/80 09/16/2023 1023 EDT Pulse - - Temperature - - Respiratory Rate - - Oxygen Saturation - - Inhaled Oxygen Concentration - - Weight 123 kg (271 lb 3.2 oz) 09/16/2023 1023 ED T Height - - Body Mass Index 38.91 10/22/2022 0907 EST documented in this encounter Patient Instructions * Patient Instructions* Bhavana Lopez NP - 09/16/2023 10:40 EDT vitamin B2, magnesium, vitamin D, coenzyme Q10 documented in this encounter Progress Notes * Bhavana Lopez NP - 09/16/2023 1040 EDT Gastroenterology & Hepatology Follow-up Visit ? Reason for Referral: Nausea and vomiting PCP: Kenia Devine ? Impression: ??Symptoms significantly improved with increased TCA and rescue medications. Patient pleased with the results. Could potentially benefit from further TCA optimization. >75mg beyond scope for GI treatment, however, so can discuss with psychiatrist. Reviewed monitoring for serotonin syndrome and when to go to the ER. ?? Plan: 1. Cyclic vomiting syndrome. : --Talk to PCP about solutab or subcutaneous versions of rescue medcations --Consider supplements on AVS for prevention --Discuss increasing amitriptyline with psychiatrist --Follow-up 6 months in person ? HPI: Joe Garcia is a 57 y.o. male with a past medical history of depression, anxiety, AR, ADHD, GERD, HTN, asthma??here today for consultation regarding nausea and vomiting. ?? I last saw patient 10/2022. Since then, increased amitriptyline to 75mg PO hs. No side effects of the TCA. Has only been the to ER once since we last spoke. Has only needed rescue medications 6x since his last appointment. They do take 30-45 min to work, however. No diarhrea, constipation, blood inhis stool, stomach pain. No unexplained weight loss. Wt Readings from Last 3 Encounters: 09/16/23 (!) 123 kg (271 lb 3.2 oz) 10/22/22 (!) 126.9 kg (279 lb 12.8 oz) ?? Therapy tried: Zofran--doesn't help Amitriptyline 10mg--->25mg; has slightly improved the frequency Compazine 25mg rectal--not doing much Compazine 10mg tab Omeprazole 40mg--doesn't help, stopped Sumatriptan nasal spray--didn't help Aprepitant Irina Metoclopramide--urticaria Wellbutrin, mirtazapine, risperidone, sertraline ?? Pertinent labs, imaging, procedures: From [facility] chart review: 1. ABD u/s 03/27/18; normal findings 2. CT scan abd/pelvis with contrast 01/17/18 ([facility]); lung nodule- otherwise unrevealing 3. EGD 07/06/18 [facility]; pyloric stenosis with balloon diltation. 4. [...] gland polyps. normal duodenum. One small gallstone. ?? PMH: As stated in HPI. ?? ROS: A 10-point ROS was performed and is negative other than stated in HPI. ? Current Outpatient Medications: ??? ALBUTEROL INHL, Inhale as directed., Disp: , Rfl: ??? amitriptyline (ELAVIL) 50 mg tablet, TAKE ONE TABLET BY MOUTH AT BEDTIME, Disp: 30 Tablet, Rfl:2 ??? baclofen (LIORESAL) 10 mg tablet, Take 10 mg by mouth., Disp: , Rfl: ??? gabapentin (NEURONTIN) 100 mg capsule, Take by mouth 3 times daily., Disp: , Rfl: ??? ibuprofen (MOTRIN) 800 mg tablet, Take 800 mg by mouth., Disp: , Rfl: ??? melatonin 5 mg tablet, Take 10 mg by mouth., Disp: , Rfl: ??? metoprolol SUCCinate 50 mg capsule,sprinkle,ER 24hr, Take 50 mg by mouth., Disp: , Rfl: ??? mirtazapine (REMERON) 30 mg tablet, , Disp: , Rfl: ??? omeprazole (PRILOSEC) 40 mg capsule, Take 40 mg by mouth., Disp: , Rfl: ??? promethazine (PHENERGAN) 25 mg suppository, INSERT ONE SUPPOSITORY RECTALLY EVERY 4 HOURS NEEDED FOR NAUSEA AND VOMITING, Disp: , Rfl: ??? SYMBICORT 80-4.5 mcg/actuation HFA aerosol inhaler inhaler, INHALE 2 PUFFS BY MOUTH TWO TIMES ADAY, Disp: , Rfl: ?? Allergies Allergen Reactions ??? Vicodin [Hydrocodone-Acetaminophen] ? Objective: ?? Last Vitals: BP 102/80 Wt (!) 123 kg (271 lb 3.2 oz) BMI 38.91 kg/m? General: Well appearing and in NAD. Speech is fluent and clear. Skin: Color pink. Warm and dry. Nails without clubbing or cyanosis. HEENT: Conjunctiva pink, sclera white. ? Bhavana Lopez NP Gastroenterology & Hepatology documented in this encounter Plan of Treatment Not on file documented as of this encounter Visit Diagnoses Diagnosis Cyclic vomiting syndrome- Primary Persistent vomiting documented in this encounter Historical Medications * This list may reflect changes made after this encounter. Medication Sig Dispensed Refills Start Date End Date metFORMIN (GLUCOPHAGE) 500 mg tablet TAKE ONE TABLET BY MOUTH EVERY DAY WITH MEALS 08/22/2023 added in this encounter Care Teams Supervisor Poultry Hatchery Relationship Specialty Start Date End Date Kenia Devine MD [address] [place] [address] [place] [address] PCP - General Family Medicine - [facility] 10/22/22 documented as of this encounter
--- OUTSIDE RECORDS SUMMARY | 2024-07-07 11:44 | XMS_ITS | Encounter Summary ---
Author Organization [facility] [place] [address] Care Team Providers Care Plastic Finisher Name Role Phone Estefani Nicole MD Primary Care Provider + Encounter Details Date Type Department Care Team (Late st Contact Info) Description 10/16/2020 Telephone [place] [phone] Brittaney Colon RN Social History Tobacco Use [...] Telephone Encounter - Brittaney Colon RN - 10/16/2020 4:34 PM EST Received voice mail message from patient stating I don't need a call back I just want Maria Del Carmen to know that I was in the hospital over Thanksgiving with nausea and vomiting and I've been sick the last few days. Patient scheduled for telehealth visit on 10/30. documented in this encounter Plan of Treatment Not on file documented as of this encounter Visit Diagnoses Not on filedocumented in this encounter Care Teams Plastic Finisher Relationship Specialty Start Date End Date Estefani Nicole MD [address] [place] [address] PCP - General Family Medicine 12/4/19 2/6/22 documented as of this encounter
--- OUTSIDE RECORDS SUMMARY | 2024-07-07 11:44 | XMS_ITS | Encounter Summary ---
Author Organization [facility] Address [facility] [place] [address] Care Team Providers Care Stogie Packer Name Role Phone Luh Dyer APRN Primary Care Provider [phone] Encounter Details Date Type Department Care Team (Latest Contact Info) Description 12/07/2017 - 12/07/2017 11:59 PM EST Hospital Encounter [place] [address] Perez Rubalcava MD [facility] [place] [address] Discharge Disposition: Home Social History Tobacco Use [...] FILM LIBRARY STORAGE ONLY DX ABDOMEN Routine 12/07/2017 12:00 AM EST documented in this encounter Results * Film Library- Storage Only DX Abdomen (12/07/2017 12:00 AM EST) Narrative RAD - 04/16/2018 6:49 AM EDT This exam is for storage only and is auto-finalizing. Perez Rubalcava MD IMG FILM LIBRARY OR DERABLES [place], [place] documented in this encounter Visit Diagnoses Not on filedocumented in this encounter Care Teams Stogie Packer Relationship Specialty Start Date End Date Luh Dyer APRN [address] [place] [address] [place] [address] PCP - General 10/08/10 10/18/19 documented as of this encounter
--- OUTSIDE RECORDS SUMMARY | 2024-07-07 11:44 | XMS_ITS | Encounter Summary ---
Author Organization [facility] Address [address] [place] [address] Care Team Providers Care Beater Engineer Helper Name Role Phone Kenia Devine MD Primary Care Provide r Reason for Visit * Reason Comments Medications Refill Encounter Details Date Type Department Care Team (Late st Contact Info) Description 07/15/2023 Refill [facility] Gastroenterology - [address] [phone] Bhavana Lopez, SKIN CARE TECHNICIAN [address] [facility], [address] [place] [phone] Medications Refill Social History Tobacco Use Types [...] MOUTH AT BEDTIME 30 Tablet 2 07/21/2023 documented in this encounter Miscellaneous Notes * Telephone Encounter - Mckayla Silva RN - 07/21/2023 0948 EDT Refilled amitriptyline 50mg at bedtime as per notes on 10/22/22 and 10/24/22. Follow up scheduled for 09/16/23. documented in this encounter Plan of Treatment Not on file documented as of this encounter Visit Diagnoses Not on filedocumented in this encounter Discontinued Medications Medication Sig Discontinue Reason Start Date End Da te amitriptyline (ELAVIL) 50 mg tablet TAKE ONE TABLET BY MOUTH AT BEDTIME 04/27/2023 07/21/2023 documented as of this encounter Care Teams Beater Engineer Helper Relationship Specialty Start Date End Date Kenia Devine MD [address] [place] [address] [place] [phone] PCP - General Family Medicine - Hospital Medicine 10/22/22 documented as of this encounter
--- OUTSIDE RECORDS SUMMARY | 2024-07-07 11:44 | XMS_ITS | Encounter Summary ---
Author Organization [facility] [place] [address] Care Team Providers Care Alligator Hunter Name Role Phone Estefani Nicole MD Primary Care Provider + Encounter Details Date Type Department Care Team ([facility] st Contact Info) Description 07/03/2020 Tele[place] [phone] Joanne Rodrigues Social History Tobacco Use Types Packs/Day Years Used Date Smoking Tobacco: Never Smokeless Tobacco: Never Sex and Gender Information Value Date Recorded Sex Assigned at Not on file Gender Identity Not on file Sexual Orientation Not on file documented as of this encounter Miscellaneous Notes * Telephone Encounter - Joanne Rodrigues - 07/03/2020 3:07 PM EDT Maria Del Carmen's office note from 06/29/2020 has been faxed to Dr Collins's office per her request to . documented in this encounter Plan of Treatment Not on file documented as of this encounter Visit Diagnoses Not on filedocumented in this encounter Care Teams Alligator Hunter Relationship Specialty Start Date End Date Estefani Nicole MD [address] [place] [address] PCP - General Family Medicine 10/19/19 12/22/21 documented as of this encounter
--- OUTSIDE RECORDS SUMMARY | 2024-07-07 11:44 | XMS_ITS | Encounter Summary ---
Author Organization [facility] Address [facility] [place] [address] Care Team Providers Care Human Resources Executive Name Role Phone Estefani Nicole MD Primary Care Provider + Reason for Visit * Auth/Cert Specialty Diagnoses / Procedures Referred By Dasia t Referred To Contact Diagnoses Abdominal pain [...] Expiration Date Visits Re quested Visits Authorized [id number] 1 1 Encounter Details Date Type Department Care Team (Latest Contact Info) Description 08/31/2020 9:41 AM EDT - 08/31/2020 12:08 PM EDT Hospital En[place] [address] Perez Rubalcava MD [facility] [place] [address] Discharge Disposition: Home Social History Tobacco Use [...] Sign Reading Time Taken Comments Blood Pressure 149/105 08/31/2020 11:30 AM EDT Pulse 89 08/31/2020 11:05 AM EDT Temperature 36.6 ??C (97.9 ??F) 08/31/2020 10:09 AM E DT Respiratory Rate 16 08/31/2020 11:30 AM EDT Oxygen Saturation 100% 08/31/2020 11:30 AM EDT Inhaled Oxygen Concentration - - Weight - - Height - - Body Mass Index - - documented in this encounter Medications at Time of Discharge Medication Sig Dispensed Refills Start Date End Date omeprazole (PriLOSEC) 20 mg Capsule, Delayed Release(E.C.) [...] Tablet Take 10 mg by mouth nightly. ARIPiprazole (ABILIFY) 5 mg Tablet 15 mg. 0 02/14/2018 01/09/2021 sertraline (ZOLOFT) 100 mg Tablet 50 mg. 0 04/14/2018 01/21/2022 documented as of this encounter H&P Notes * Perez Rubalcava MD - 08/31/2020 10:14 AM EDT PROBLEM LIST There is no problem list on file for this patient. HISTORY OF PRESENT ILLNESS Joe Garcia is a 55 y.o. y/o who presents for EGD and colonoscopy for nausea vomiting and generalized abdominal pain. MEDICATIONS No current facility-administered medications on file prior to encounter. Current Outpatient Medications on File Prior to Encounter Medication Sig Dispense Refill ??? omeprazole (PriLOSEC) [...] Take 10 mg by mouth nightly. ??? PROAIR HFA 90 mcg/actuation HFA Aerosol Inhaler INHALE 2 PUFFS EVERY 4 HOURS 0 ??? EPINEPHrine (ADRENALIN) 0.1 mg/mL (1:10,000) Syringe Inject as directed. PHYSICAL EXAM: Blood pressure (!) 142/96, pulse 81, temperature 36.6 ??C (97.9 ??F), temperature source Temporal, resp. rate 16, SpO2 96 %. GEN: Alert, cooperative. Pleasant. In NAD MP I ASA II HEENT: No oropharyngeal lesions. Neck supple. No masses. Thyroid symmetric LUNGS: CTAB CARD: RRR without m/g/r ABD: Non-distended. Active BS. Soft. Benign. No masses. No HSM. No succussion splash. No bruits RECENT LABS No results found for this or any previous visit (from the past 24 hour(s)). ASSESSMENT AND PLAN Joe Garcia is a 55 y.o. y/o who presents for endoscopic evaluation. Risks extensively discussed including bleeding, infection, reaction to anesthesia, perforation, pancreatitis (if applicable), and/or other unforseen complication. Consent signed and patient well informed of the risks of the procedure. documented in this encounter Plan of Treatment Not on file documented as of this encounter Procedures Procedure Name Priority Date/Time Associated Diagnosis Comments SPECIMEN TO PATHOLOGY Routine 08/31/2020 10:59 AM EDT SPECIMEN TO PATHOLOGY Routine 08/31/2020 10:59 AM EDT SPECIMEN TO PATHOLOGY Routine 08/31/2020 10:59 AM EDT SPECIMEN TO PATHOLOGY Routine 08/31/2020 10:59 AM EDT SPECIMEN TO PATHOLOGY Routine 08/31/2020 10:59 AM EDT SURGICAL PATHOLOGY REPORT Routine 08/31/2020 10:46 AM EDT Colonoscopy, Remv Rocco Nichols ([id number]) 08/31/2020 10:18 AM EDT EGD/colon with anesthesia. 4L Nulytely prep already sent to pharmacy (please send patient instructions). INDICATION: please obtain duodenal and colonic bx for vomiting and abdominal pain. please obtain duodenal and colonic bx. Upper Gi Endoscopy, Biopsy ([id number]) 08/31/2020 10:18 AM EDT EGD/colon with anesthesia. 4L Nulytely prep already sent to pharmacy (please send patient instructions). INDICATION: please obtain duodenal and colonic bx for vomiting and abdominal pain. please obtain duodenal and colonic bx. COLONOSCOPY Routine 08/31/2020 10:08 AM EDT UPPER GI ENDOSCOPY Routine 08/31/2020 10 :07 AM EDT documented in this encounter Results * Specimen to Pathology (08/31/2020 10:59 AM EDT) AP Specimen 08/31/2020 10:5 9 AM EDT 08/31/2020 10:59 AM EDT Narrative [facility] - 08/31/2020 10:59 AM EDT Specimen requisition ordered. ??Separate Pathology report to follow Perez Rubalcava MD PATHOLOGY/CYTOLOGY ORDERABLES Performing Organization Address [facility] Co de Phone Number [facility] [place] [address] * Specimen to Pathology (08/31/2020 10:59 AM EDT) AP Specimen 08/31/2020 10:5 9 AM EDT 08/31/2020 10:59 AM EDT Narrative [facility] - 08/31/2020 10:59 AM EDT Specimen requisition ordered. ??Separate Pathology report to follow Perez Rubalcava MD PATHOLOGY/CYTOLOGY ORDERABLES Performing Organization Address [facility]/ZIP Co de Phone Number [facility] [place] [address] * Specimen to Pathology (08/31/2020 10:59 AM EDT) AP Specimen 08/31/2020 10:5 9 AM EDT 08/31/2020 10:59 AM EDT Narrative [facility] - 08/31/2020 10:59 AM EDT Specimen requisition ordered. ??Separate Pathology report to follow Perez Rubalcava MD PATHOLOGY/CYTOLOGY ORDERABLES Performing Organization Address [facility] de Phone Number [facility] [place] [address] * Specimen to Pathology (08/31/2020 10:59 AM EDT) AP Specimen 08/31/2020 10:5 9 AM EDT 08/31/2020 10:59 AM EDT Narrative [facility] - 08/31/2020 10:59 AM EDT Specimen requisition ordered. ??Separate Pathology report to follow Perez Rubalcava MD PATHOLOGY/CYTOLOGY ORDERABLES Performing Organization Address [facility] [place] [address] * Specimen to Pathology (08/31/2020 10:59 AM EDT) AP Specimen 08/31/2020 10:5 9 AM EDT 08/31/2020 10:59 AM EDT Narrative [facility] - 08/31/2020 10:59 AM EDT Specimen requisition ordered. ??Separate Pathology report to follow Perez Rubalcava MD PATHOLOGY/CYTOLOGY ORDERABLES Performing Organization Address [facility] de Phone Number [facility] [place] [address] * Surgical Pathology Report (08/31/2020 10:46 AM EDT) Final Diagnosis [id number] ? Location: 4T; EA07; A The signing pathologist has (i) examined the relevant preparation(s) for the specimen(s) and (ii) rendered or confirmed the diagnosis(es). . ?Surgical Pathology DIAGNOSIS A - Duodenum, ??biopsy: - Duodenal mucosa, negative for diagnostic abnormality ?? . B - Stomach, ??biopsy: - ??Gastric antrum-type and body/fundic-typ e mucosa, negative for diagnostic abnormality. C - Esophagus, ??biopsy: - ??Squamous mucosa negative for diagnostic abnormality. D - Non targeted colon, ?? biopsy: - ??Colonic mucosa, negative for diagnostic abnormality. E - Sigmoid colon, ??polypectomy: - ??Hyperplastic polyp. CR-PX Electronically signed by: ??Rafiq Martinez MD Verified: ??09/06/2020 ?Pathologist Performed at: ??-[facility], [place], [place] SPECIMEN(S) SUBMITTED A - duodenum r/o celiac, biopsy (Multiple) B - Gastric r/o H Pylori, biopsy (Multiple) C - Esophagus r/o EOE, biopsy (Multiple) D - non targeted colon r/o microscopic colitis, biopsy (1) E - sigmoid polyp, biopsy (1) CLINICAL INFORMATION 55-year-old male with nausea, vomiting, abdominal cramping SPECIMEN PROCESSING A - Labeled/Fixativ e: Duodenum, rule out celiac, formalin. Quantity/Size: Three, ranging from 0.1-0.5 cm. Tissue Description: Soft, pink-red tissues. Sections/Proces sing: Submitted en toto ??in 1 cassette labeled A1. B - Labeled/Fixativ e: Gastric rule out H. pylori, formalin. Quantity/Size: Four, ranging from 0.3-0.5 cm. Tissue Description: Soft, pink tissues. Sections/Proces sing: Submitted en toto ??in 1 cassette labeled B1. C - Labeled/Fixativ e: Esophagus, rule out EOE, formalin. Quantity/Size: Two, 0.1 and 0.4 cm. Tissue Description: Soft, white tissues. Sections/Proces sing: Submitted en toto ??in 1 cassette labeled C1. D - Labeled/Fixativ e: Non-targeted colon, rule out microscopic colitis, formalin. Quantity/Size: Multiple, ranging from 0.3-0.5 cm. Tissue Description: Soft, pink-red tissues. Sections/Proces sing: . SPECIMEN PROCESSING Submitted en toto ??in 3 cassettes labeled D1-D3. E - Labeled/Fixativ e: Sigmoid polyp, formalin. Quantity/Size: Single, 1.0 x 0.3 x 0.1 cm. Tissue Description: Soft, red, polypoid tissue. Sections/Proces sing: Submitted en toto ??in 1 cassette labeled E1. ??sns 09/06/2020 3:39 PM EDT [facility] GI Biopsy 08/31/2020 10:4 6 AM EDT 08/31/2020 10:46 AM EDT GI Biopsy 08/31/2020 10:4 6 AM EDT 08/31/2020 10:46 AM EDT GI Biopsy 08/31/2020 10:4 6 AM EDT 08/31/2020 10:46 AM EDT GI Biopsy 08/31/2020 10:4 6 AM EDT 08/31/2020 10:46 AM EDT GI Biopsy 08/31/2020 10:4 6 AM EDT 08/31/2020 10:46 AM EDT Perez Rubalcava MD PATHOLOGY/CYTOLOGY ORDERABLES [facility] [place] [address] * COLONOSCOPY (08/31/2020 10:08 AM EDT) COLONOSCOPY [facility] Endoscopy Procedure Date: 08/31/2020 10:08 AM ? Patient Name: Joe Garcia ? Date of : 1965 ? Age: 55 ? Order #: [id number] ? Instrument Name: [facility]-[id number] ? Procedure: ? Colonoscopy Indications: ? Abdominal pain Providers: ? Perez Rubalcava MD, Gladys ? Chasidy Ortega, ? Scrap Collector Referring : ?Estefani Nicole Medicines: ? Monitored Anesthesia Care Complications: ? [...] Procedure Code(s): ?? --- Professional --- ? 72488, Colonoscopy, flexible; with ? removal of tumor(s), polyp(s), or ? other lesion(s) by snare technique ? 76210, 59, Colonoscopy, flexible; ? with biopsy, single or multiple ? --- Technical --- ? 64659, Colonoscopy, flexible; with ? removal of tumor(s), polyp(s), or ? other lesion(s) by snare technique ? 04195, 59, Colonoscopy, flexible; ? with biopsy, single or multiple CPT copyright 2019 [employer]. All rights reserved. The codes documented in this report are preliminary and upon assembling machine operator review may be revised to meet current compliance requirements. Attending Participation: ? I personally performed the entire procedure. ? ___ Perez Rubalcava MD 08/31/2020 11:01:10 AM This report has been signed electronically. Number of Addenda: 0 Note Initiated On: 08/31/2020 10:08 AM PROVATION 08/31/2020 10:0 8 AM EDT Estefani Nicole MD GENERAL SURGICAL ORDERABLES PROVATION * UPPER GI ENDOSCOPY (08/31/2020 10:07 AM EDT) [facility] UPPER GI ENDOSCOPY [facility] Endoscopy Procedure Date: 08/31/2020 10:07 AM ? Patient Name: Joe Garcia ? Date of : 1965 ? Age: 55 ? Order #: [id number] ? Instrument Name: [id number] ? Procedure: ? Upper GI endoscopy Indications: ? Nausea/Vomiting Providers: ? Perez Rubalcava MD, Gladys ? Chasidy Ortega, ? Scrap Collector Referring : ?Estefani Nicole Medicines: ? Monitored Anesthesia Care Complications: ? [...] ? antiplatelet agents. ASA Grade ? Assessment: II - A patient with mild ? systemic disease. After reviewing the ? risks and benefits, the patient was ? deemed in satisfactory condition to ? undergo the procedure. The anesthesia ? plan was to use monitored anesthesia ? care (MAC). Immediately prior to ? administration of medications, the ? patient was re-assessed for adequacy ? to receive sedatives. The heart rate, ? respiratory rate, [...] and ? adverse medication reactions. The ? Endoscope was introduced through the ? mouth, and advanced to the third part ? of duodenum. The patient tolerated ? the procedure well. The upper GI ? endoscopy was accomplished without ? difficulty. The patient tolerated the ? procedure well. ? Findings: ? The esophagus was normal with the exception of a ? slightly ringed esophagus appearance in the mid ? esophagus for 5 cm - this was biopsied with a cold ? forceps. The GE junction was at 41 cm. ? The stomach was normal with the exception of multiple ? fundic gland polyps that were benign-appearing - the ? stomach was biopsied. ? The examined duodenum was normal. Multiple biopsies ? were taken with a cold forceps for histology. ? Moderate Sedation: ? Not applicable - See Anesthesia documentation Impression: ?- Slightly ringed esophagus - biopsied ? - Fundic gland polyps Recommendation: ?- Await pathology results ? - Proceed with EGD now ? Procedure Code(s): ?? --- Professional --- ? 21123, Esophagogastroduod enoscopy, ? flexible, transoral; diagnostic, ? including collection of specimen(s) ? by brushing or washing, when ? performed (separate procedure) ? --- Technical --- ? 91885, Esophagogastroduod enoscopy, ? flexible, transoral; diagnostic, ? including collection of specimen(s) ? by brushing or washing, when ? performed (separate procedure) CPT copyright 2019 [employer]. All rights reserved. The codes documented in this report are preliminary and upon assembling machine operator review may be revised to meet current compliance requirements. Attending Participation: ? I personally performed the entire procedure. ? ___ Perez Rubalcava MD 08/31/2020 10:41:17 AM This report has been signed electronically. Number of Addenda: 0 Note Initiated On: 08/31/2020 10:07 AM PROVATION 08/31/2020 10:0 7 AM EDT Estefani Nicole MD GENERAL SURGICAL ORDERABLES PROVATION documented in this encounter Visit Diagnoses Not on filedocumented in this encounter Active and Recently Administered Medications Times are shown in EDT. Continuous Medication Order 08/29/2020 08/30/2020 08/31/2020 lactated ringers infusion (CANCELED) 100 mL/hr, Intravenous, CONTINUOUS, Starting on Thu08/31/20 at 1030, Until Thu08/31/20 at 1129, Endoscopy (Day of Procedure) 1018 (New Bag - Prov ider: Venu Acevedo CRNA)1100 (Stopped - Provider: Venu Acevedo CRNA) documented in this encounter Care Teams Human Resources Executive Relationship Specialty Start Date End Date Estefani Nicole MD [facility] [place] [address] PCP - General Family Medicine 10/19/19 12/22/21 documented as of this encounter
--- OUTSIDE RECORDS SUMMARY | 2024-07-07 11:44 | XMS_ITS | Encounter Summary ---
Author Organization [facility] Address [address] [place] [address] Care Team Providers Care Rotating Field Assembler Name Role Phone Kenia Devine MD Primary Care Provide r Encounter Details Date Type Department Care Team (Late st Contact Info) Description 05/26/2023 Lab Requisition [facility] Pathology & Laboratory Medicine - Main [address] [address] Outr Resulting Lab, Provider Social History Tobacco [...] Procedure Name Priority Date/Time Associated Diagnosis Comments RHEUMATOID FACTOR Routine 05/26/2023 16: 21 EDT documented in this encounter Results * RHEUMATOID FACTOR (05/26/2023 16:21 EDT) Rheumatoid Factor <8.6 <12.0 IU/mL 05/27/2023 21:44 EDT [facility] Blood VENOUS BLOOD / Unknown 05/26/2023 16:21 EDT 05/27/2023 21:20 EDT Provider Outr Resulting Lab CHEMISTRY & BLOOD GAS ORDERABLES [facility] [address] [place] [address] documented in this encounter Visit Diagnoses Not on filedocumented in this encounter Care Teams Rotating Field Assembler Relationship Specialty Start Date End Date Kenia Devine MD [address] [place] [address] [place] [phone] PCP - General Family Medicine - Hospital [facility] 10/22/22 documented as of this encounter
--- OUTSIDE RECORDS SUMMARY | 2024-07-07 11:44 | XMS_ITS | Encounter Summary ---
Author Organization [place] [address] Care Team Providers Care Food Production Manager Name Role Phone Estefani Nicole MD Primary Care Provider + Encounter Details Date Type Department Care Team (Late st Contact Info) Description 12/13/2019 Telephone [place] [address] Maria Del Carmen Lutz APRN [address] [place] [address] Social History Tobacco Use Types Packs/Day Years Used Date Smoking Tobacco: Never Smokeless Tobacco: Never Sex and Gender Information Value Date Recorded Sex Assigned at Not on file Gender Identity Not on file Sexual Orientation Not on file documented as of this encounter Miscellaneous Notes * Telephone Encounter - Maria Del Carmen Lutz APRN - 12/13/2019 6:13 PM EST Second attempt to call patient regarding recommendations. Have left VM to return call. documented in this encounter Plan of Treatment Not on file documented as of this encounter Visit Diagnoses Not on filedocumented in this encounter Care Teams Food Production Manager Relationship Specialty Start Date End Date Estefani Nicole MD [address] [place], [place] [phone] PCP - General Family Medicine 10/19/19 12/22/21 documented as of this encounter
--- OUTSIDE RECORDS SUMMARY | 2024-07-07 11:44 | XMS_ITS | Encounter Summary ---
Author Organization [facility] Address [address] [place] [address] Care Team Providers Care College Basketball Coach Name Role Phone Kenia Devine MD Primary Care Provide r Reason for Visit * Reason Onset Date Comments Appointment Related 04/15/2023 Encounter Details Date Type Department Care Team (Late st Contact Info) Description 04/15/2023 Telephone [facility] Gastroenterology - [address] [phone] Bhavana Lopez, AML ANALYST [address] [facility] [place] [address] Appointment Related Social History Tobacco Use Types Packs/Day Years [...] encounter Miscellaneous Notes * Telephone Encounter - Lindsey Last MA - 04/15/2023 1500 EDT LVM for the pt in regards to their visit with Jessica KUMAR. Advised to call back if any questions or concerns. documented in this encounter Plan of Treatment Not on file documented as of this encounter Visit Diagnoses Not on filedocumented in this encounter Care Teams College Basketball Coach Relationship Specialty Start Date End Date Kenia Devine MD [address] [place] [address] [place] [phone] PCP - General Family Medicine - [facility] Medicine 10/22/22 documented as of this encounter
--- OUTSIDE RECORDS SUMMARY | 2024-07-07 11:44 | XMS_ITS | Encounter Summary ---
Author Organization [facility] Address [address] [place] [address] Care Team Providers Care Panel Gluer Name Role Phone Kenia Devine MD Primary Care Provide r Encounter Details Date Type Department Care Team (Late st Contact Info) Description 06/15/2024 Lab Requisition [facility] Pathology & Laboratory Medicine - Main [address] [address] Outr Resulting Lab, Provider Social History Tobacco [...] VITAMIN D (25,OH) Routine 06/15/2024 7:03 EDT documented in this encounter Results * VITAMIN D (25,OH) (06/15/2024 7:03 EDT) 25OH Vitamin D Tot 36 30 - 100 ng/mL 06/16/2024 12:06 EDT [facility] Comment: Vitamin D 25,OH Interpretive Ranges: Deficiency: ??<10.0 ng/mL Insufficiency: ??10.0 - 30.0 ng/mL Sufficiency: ??30.0 - 100.0 ng/mL Toxicity: ??>100.0 ng/mL Blood VENOUS BLOOD / Unknown 06/15/2024 7:03 EDT 06/15/2024 21:41 EDT Provider Outr Resulting Lab CHEMISTRY & BLOOD GAS ORDERABLES [facility] [address] [place] [address] documented in this encounter Visit Diagnoses Not on filedocumented in this encounter Care Teams Panel Gluer Relationship Specialty Start Date End Date Kenia Devine MD [address] [place] [address] [place] [phone] PCP - General Family Medicine - [facility] Medicine 10/22/22 documented as of this encounter
--- OUTSIDE RECORDS SUMMARY | 2024-07-07 11:44 | XMS_ITS | Encounter Summary ---
Author Organization [facility] Address [facility] [place] [address] Care Team Providers Care Cemetery Workers Supervisor Name Role Phone Estefani Nicole MD Primary Care Provider + Encounter Details Date Type Department Care Team (Late st Contact Info) Description 06/29/2020 Telephone [place] [address] Edgardo Caraballo MD [facility] DR GASTROENTER[place]Y [place] [address] Social History Tobacco Use Types Packs/Day Years Used Date Smoking Tobacco: Never Smokeless Tobacco: Never Sex and Gender Information Value Date Recorded Sex Assigned at Not on file Gender Identity Not on file Sexual Orientation Not on file documented as of this encounter Miscellaneous Notes * Telephone Encounter - Edgardo Caraballo MD - 06/29/2020 10:39 AM EDT TRANSFER [facility] Called by Dr. Leal 54 yo M with hx of chronic nausea/vomiting Pyloric stenosis in 2017 of unclear etiology s/p dilation Recent EGD in January 2020 showed normal pylorus P/w recurrent nausea, vomiting, abdominal pain Vitals normal Labs notable for K of 3, otherwise normal CT done (no enteric or IV contrast) but no obvious signs of obstruction. Stomach does not appear dilated. Has tried several different antiemetics including zofran, reglan. Ativan seemed to work the best. Does not sounds like a mechanical issue to me, sounds more like a functional motility issue. Has a GI clinic appointment today, where this can be discussed further. Perhaps could start with upper GI series to exclude obstruction, consider gastric emptying scan vs. Smart pill. Dr. Leal is happy to help with ordering any tests locally if needed. documented in this encounter Plan of Treatment Not on file documented as of this encounter Visit Diagnoses Not on filedocumented in this encounter Care Teams Cemetery Workers Supervisor Relationship Specialty Start Date End Date Estefani Nicole MD [address] [place] [id number] PCP - General Family Medicine 10/19/19 12/22/21 documented as of this encounter
--- OUTSIDE RECORDS SUMMARY | 2024-07-07 11:44 | XMS_ITS | Encounter Summary ---
Author Organization [facility] Address [address] [place] [address] Care Team Providers Care Roll Forger Name Role Phone Kenia Devine MD Primary Care Provide r Reason for Visit * Reason Comments Medications Refill Encounter Details Date Type Department Care Team (Late st Contact Info) Description 04/21/2023 Refill [facility] Gastroenterology - [facility] [address] [place] [address] Bhavana Lopez, PASTRY SOUS CHEF [address] [facility], [address] [place] [phone] Medications Refill Social History Tobacco Use Types [...] BY MOUTH AT BEDTIME 30 Tablet 2 04/27/2023 07/21/2023 documented in this encounter Miscellaneous Notes * Telephone Encounter - Mckayla Silva RN - 04/27/2023 1221 EDT Refilled amitriptyline 50 mg every day as per notes on 10/22/22 and 10/24/22. Follow up scheduled for 09/16/23. documented in this encounter Plan of Treatment Not on file documented as of this encounter Visit Diagnoses Not on filedocumented in this encounter Discontinued Medications Medication Sig Discontinue Reason Start Date End Da te amitriptyline (ELAVIL) 50 mg tablet TAKE ONE TABLET BY MOUTH AT BEDTIME 01/26/2023 04/27/2023 documented as of this encounter Care Teams Roll Forger Relationship Specialty Start Date End Date Kenia Devine MD [address] [place] [address] [place] [phone] PCP - General Family Medicine - [facility] Medicine 10/22/22 documented as of this encounter
--- OUTSIDE RECORDS SUMMARY | 2024-07-07 11:44 | XMS_ITS | Encounter Summary ---
Author Organization [facility] Address [facility] [place] [address] Care Team Providers Care Warehouse Shift Supervisor Name Role Phone Luh Dyer APRN Primary Care Provider [phone] Encounter Details Date Type Department Care Team (Latest Contact Info) Description 01/17/2018 - 01/17/2018 11:59 PM EST Hospital Encounter [place] [address] Perez Rubalcava MD [facility] [place] [address] Discharge Disposition: Home Social History Tobacco Use [...] STORAGE ONLY CT ABDOMEN AND PELVIS Routine 01/17/2018 12:00 AM EST documented in this encounter Results * Film Library- Storage Only CT Abdomen & Pelvis (01/17/2018 12:00 AM EST) Narrative STACY - 04/16/2018 6:41 AM EDT This exam is for storage only and is auto-finalizing. Perez Rubalcava MD IMG FILM LIBRARY OR DERABLES [place], [place] documented in this encounter Visit Diagnoses Not on filedocumented in this encounter Care Teams Warehouse Shift Supervisor Relationship Specialty Start Date End Date Luh Dyer APRN [address] [place] [address] [place] [address] PCP - General 10/08/10 10/18/19 documented as of this encounter
--- OUTSIDE RECORDS SUMMARY | 2024-07-07 11:44 | XMS_ITS | Encounter Summary ---
Author Organization [facility] Address [facility] [place] [address] Care Team Providers Care Manual Writer Name Role Phone Estefani Nicole MD Primary Care Provider + Encounter Details Date Type Department Care Team (Late st Contact Info) Description 06/29/2020 10:00 AM EDT Ancillary Procedure [place] [address] Scar Abbott MD [facility] [place] [address] Social History Tobacco Use Types Packs/Day Years [...] Comments FILM LIBRARY STORAGE ONLY CT ABDOMEN Routine 06/29/2020 9:56 AM EDT documented in this encounter Results * Film Library- Storage Only CT Abdomen (06/29/2020 9:56 AM EDT) Narrative [facility] - 06/29/2020 9:56 AM EDT This exam is auto-finalizing. It's purpose is for storage only. Scar Abbott MD IMG FILM LIBRARY ORD ERABLES [place], [place] documented in this encounter Visit Diagnoses Not on filedocumented in this encounter Care Teams Manual Writer Relationship Specialty Start Date End Date Estefani Nicole MD [address] [place] [address] PCP - General Family Medicine 10/19/19 12/22/21 documented as of this encounter
--- OUTSIDE RECORDS SUMMARY | 2024-07-07 11:44 | XMS_ITS | Encounter Summary ---
[facility] Organization [facility] [place] [address] Care Team Providers Care Account Manager Employee Benefits Name Role Phone Luh Dyer APRN Primary Care Provider [phone] Encounter Details Date Type Department Care Team (Late st Contact Info) Description 07/25/2019 Ancillary Procedure Radiology [place] [address] David Clemens MD [address] [place] [address] Social History Tobacco Use Types [...] FILM LIBRARY STORAGE ONLY DX ABDOMEN Routine 07/25/2019 12:00 AM EDT documented in this encounter Results * Film Library- Storage Only DX Abdomen (07/25/2019 12:00 AM EDT) Narrative [facility] - 10/18/2019 8:57 PM EST This exam is auto-finalizing. It's purpose is for storage only. David Clemens MD IMG FILM LIBRARY ORD ERABLES [place], [place] documented in this encounter Visit Diagnoses Not on filedocumented in this encounter Care Teams Account Manager Employee Benefits Relationship Specialty Start Date End Date Luh Dyer APRN [address] [place] [address] [place] [address] PCP - General 10/08/10 10/18/19 documented as of this encounter
--- OUTSIDE RECORDS SUMMARY | 2024-07-07 11:44 | XMS_ITS | Encounter Summary ---
Author Organization [facility] Address [address] [place] [address] Care Team Providers Care Photograph Mounter Name Role Phone Kenia Devine MD Primary Care Provide r Encounter Details Date Type Department Care Team (Late st Contact Info) Description 05/26/2023 Lab Requisition [facility] Pathology & Laboratory Medicine - Main [address] [id number] Outr Resulting Lab, Provider Social History Tobacco [...] Procedure Name Priority Date/Time Associated Diagnosis Comments LYME AB Routine 05/26/2023 16:21 EDT DOUBLE STRANDED DNA ANTIBODY, IGG Routine 05/26/2023 16:21 EDT ANTI NUCLEAR AB (SERA), IFA Routine 05/26/2023 16:21 EDT documented in this encounter Results * (ABNORMAL) ANTI NUCLEAR AB (SERA), IFA (05/26/2023 16:21 EDT) SERA Interpretation Positive(A) Negative 05/29/2023 14:54 EDT [facility] Comment: For titers greater than or equal to 1:160 (except the centromere and nucleolar patterns) it is recommended that specific follow-up autoantibody testing ??(such as for dsDNA and Extractable Nuclear Antigens) be performed on all diffuse and/or speckled patterns NOTE: For add-on testing dsDNA is stable for 7 days refrigerated while Extractable Nuclear Antigens are only stable for 48 hours refrigerated. SERA Titer and Pattern 1 1:80 Homogeneous 05/29/2023 14:54 EDT [facility] SERA Titer and Pattern 2 1:160 Speckled 05/29/2023 14:54 EDT [facility] Blood VENOUS BLOOD / Unknown 05/26/2023 16:21 EDT 05/27/2023 21:16 EDT Narrative [facility] - 05/29/2023 14:54 EDT Results were obtained with the INOVA NOVA Lite HEp-2 SERA Kit by indirect immunofluorescence. Provider Outr Resulting Lab IMMUNOLOGY A ND SEROLOGY ORDERABLES Performing Organization Address [facility] Co de Phone Number [facility] [address] [place] [address] * LYME AB (05/26/2023 16:21 EDT) Pathologist [facility] Lyme Ab Negative Negative 05/28/2023 10:31 EDT [facility] Blood VENOUS BLOOD / Unknown 05/26/2023 16:21 EDT 05/27/2023 21:16 EDT Provider Outr Resulting Lab IMMUNOLOGY A ND SEROLOGY ORDERABLES Performing Organization Address [facility] de Phone Number [facility] [address] [place] [address] * ANTI DNA (DOUBLE STRANDED) (05/26/2023 16:21 EDT) [facility] Anti-DNA (Double Stranded) 24.8 <30.0 IU/mL 05/29/2023 15:21 EDT [facility] Comment: ? Negative: ??<30.0 IU/mL ? Borderline Positive: ??30.0 - 75.0 IU/mL ? Positive: ??>75.0 IU/mL Results were obtained with the Dianxin QUANTA Lite dsDNA SC YOSEF assay on the [employer] DSX. Blood VENOUS BLOOD / Unknown 05/26/2023 16:21 EDT 05/27/2023 21:16 EDT Provider Outr Resulting Lab IMMUNOLOGY A ND SEROLOGY ORDERABLES Performing Organization Address City/State/[facility] Co de Phone Number [facility] [address] [place] [address] documented in this encounter Visit Diagnoses Not on filedocumented in this encounter Care Teams Photograph Mounter Relationship Specialty Start Date End Date Kenia Devine MD [address] [place] [address] [place] [phone] PCP - General Family Medicine - [facility] Medicine 10/22/22 documented as of this encounter
--- OUTSIDE RECORDS SUMMARY | 2024-07-07 11:44 | XMS_ITS | Encounter Summary ---
Author Organization [facility] [place] [address] Care Team Providers Care Motorboat Mechanic Helper Name Role Phone Estefani Nicole MD Primary Care Provider + Encounter Details Date Type Department Care Team (Late st Contact Info) Description 08/30/2020 Tele[place] [phone] Lynne Wallis, RN Social History Tobacco Use Types Packs/Day Years Used Date Smoking Tobacco: Never Smokeless Tobacco: Never Sex and Gender Information Value Date Recorded Sex Assigned at Not on file Gender Identity Not on file Sexual Orientation Not on file documented as of this encounter Miscellaneous Notes * Telephone Encounter - Lynne Wallis RN - 08/30/2020 5:18 PM EDT Pt called about concerns with the colonoscopy prep. Pt was having an itchy throat and a tight throat due to the prep. Pt stated that he had 2 glasses of the prep, and he was regurgitating the prep shortly after swallowing it. The patient was instructed not to drink any more of the prep. Pt states that he has drank the miralax prep previously, and he did not have any problems with it. GI fellow was paged. Dr. Luna stated that she sent a prescription of the miralax prep to his pharmacy, but he can go to any pharmacy to sweet pickled fruit maker the over the counter miralax prep. Pt was instructed to mix the prepwith 64oz of liquid. documented in this encounter Plan of Treatment Not on file documented as of this encounter Visit Diagnoses Not on filedocumented in this encounter Care Teams Motorboat Mechanic Helper Relationship Specialty Start Date End Date Estefani Nicole MD [address] [place] [address] PCP - General Family Medicine 10/19/19 12/22/21 documented as of this encounter
--- OUTSIDE RECORDS SUMMARY | 2024-07-07 11:44 | XMS_ITS | Encounter Summary ---
Author Organization [facility] Address [facility] [place] [address] Care Team Providers Care Animal Husbandry Manager Name Role Phone Estefani Nicole MD Primary Care Provider + Encounter Details Date Type Department Care Team (Late st Contact Info) Description 08/31/2020 Telephone [place] [address] Kelsie Ratliff MD [facility] [place] [address] Social History Tobacco Use Types Packs/Day Years [...] encounter Miscellaneous Notes * Telephone Encounter - Kelsie Ratliff - 08/31/2020 7:32 PM EDT Patient called after his EGD/colonoscopy today. 5mm sigmoid polyp removed with cold snare. Ileum biopsied. Had one BM this evening and saw blood in toilet. States it was a little, not mixed with stool. No lightheadedness, syncope or abdominal pain. Counseled and reassurance provided. If patient starts to pass larger clots, continuous bleeding or has new lightheadedness or abdominal pain with bleeding, instructed to go to nearest ED for further evaluation. All questions answered. Kelsie Ratliff MD Gastroenterology PGY-4 08/31/2020 7:35 PM Pager #[phone] documented in this encounter Plan of Treatment Not on file documented as of this encounter Visit Diagnoses Not on filedocumented in this encounter Care Teams Animal Husbandry Manager Relationship Specialty Start Date End Date Estefani Nicole MD [address] [place] [address] PCP - General Family Medicine 10/19/19 12/22/21 documented as of this encounter
--- OUTSIDE RECORDS SUMMARY | 2024-07-07 11:44 | XMS_ITS | Encounter Summary ---
[place] [address] Care Team Providers Care Transformation Analyst Name Role Phone Estefani Nicole MD Primary Care Provider + Reason for Referral * Diagnostic Test (Routine) - Closed Specialty Diagnoses / Procedures Referred By Dasia t Referred To Contact Radiology Diagnoses Nausea and vomiting, intractability of vomiting not specified, unspecified vomiting type Lower abdominal pain Procedures MRI Cholangiopancreatography Maria Del Carmen Lutz APRN [address] [place] [address] [place] [address] Referral ID Status Reason Start Date Expiration Date V isits Requested Visits Authorized [id number] Closed Specialty Service Requested 08/06/2020 02/02/2021 1 1 Reason for Visit * Diagnostic Test (Routine) - Closed Specialty Diagnoses / Procedures Referred By Contac t Referred To Contact Radiology Diagnoses Nausea and vomiting, intractability of vomiting not specified, unspecified vomiting type Lower abdominal pain Procedures MRI Cholangiopancreatography Maria Del Carmen Lutz APRN [address] [place] [address] [place] [address] Referral ID Status Reason Start Date Expiration Date V isits Requested Visits Authorized [id number] Closed Specialty Service Requested 08/06/2020 02/02/2021 1 1 Encounter Details Date Type Department Care Team (Latest Contact Info) Description 08/07/2020 9:24 AM EDT - 08/07/2020 11:59 PM EDT Hospital [place] [address] Maria Del Carmen Lutz, GUM ROLLING MACHINE OPERATOR [address] [place] [address] Nausea and vomiting, intractability of vomiting not specified, unspecified vomiting type; Lower abdominal pain Discharge Disposition: Home Social History Tobacco Use [...] Name Priority Date/Time Associated Diagnosis Comments MRI CHOLANGIOPANCREATOGRAPHY Routine 11:03 AM EDT Nausea and vomiting, intractability of vomiting not specified, unspecified vomiting type Lower abdominal pain documented in this encounter Results * MRI Cholangiopancreatography (08/07/2020 11:03 AM EDT) [...] ? Electronically signed by: Sherita Richardson MD, [facility] ([phone]), at 08/07/2020 11:39 AM Narrative 08/07/2020 11:39 [...] below. Electronically signed by: Sherita Richardson MD, [facility]([phone]), at 08/07/2020 11:39 AM Maria Del Carmen Lutz GUM ROLLING MACHINE OPERATOR IMG MRI ORDERABL ES documented in this encounter Visit Diagnoses Diagnosis Nausea and vomiting, intractability of vomiting not specified, unspecified vomiting type Lower abdominal pain Abdominal pain, other specified site documented in this encounter Care Teams Transformation Analyst Relationship Specialty Start Date End Date Estefani Nicole MD [address] [place] [address] PCP - General Family Medicine 10/19/19 12/22/21 documented as of this encounter
--- OUTSIDE RECORDS SUMMARY | 2024-07-07 11:44 | XMS_ITS | Encounter Summary ---
Author Organization [facility] [place] [address] Care Team Providers Care Forensic Economist Name Role Phone Estefani Nicole MD Primary Care Provider + Reason for Visit * Reason Onset Date Comments Reminder Appointment 06/29/2020 Encounter Details Date Type Department Care Team (Late st Contact Info) Description 06/29/2020 Telephone [place] [phone] Abigail Macdonald CMA GASTROENTEROLOGY DEPT Reminder Appointment Social History Tobacco Use Types Packs/Day Years Used Date Smoking Tobacco: Never Smokeless Tobacco: Never Sex and Gender Information Value Date Recorded Sex Assigned at Not on file Gender Identity Not on file Sexual Orientation Not on file documented as of this encounter Miscellaneous Notes * Telephone Encounter - Abigail Macdonald CMA - 06/29/2020 11:25 AM EDT Called patient to review medications and allergies for their upcoming gastroenterology Type of Appointment: Telehealth appointment. Reach Patient during MA Check: Yes Notes for the provider: Notes for the nurse: documented in this encounter Plan of Treatment Not on file documented as of this encounter Visit Diagnoses Not on filedocumented in this encounter Care Teams Forensic Economist Relationship Specialty Start Date End Date Estefani Nicole MD [address] [place], [place] [id number] PCP - General Family Medicine 10/19/19 12/22/21 documented as of this encounter
--- OUTSIDE RECORDS SUMMARY | 2024-07-07 11:44 | XMS_ITS | Encounter Summary ---
Author Organization [facility] Address [facility] [place] [address] Care Team Providers Care Travel Registered Nurse Nicu Name Role Phone Estefani Nicole MD Primary Care Provider + Encounter Details Date Type Department Care Team (Latest Contact Info) Description 08/16/2020 8:50 AM EDT - 08/16/2020 11:59 PM EDT Hospital Encounter XRay at [address] [place] [address] Maria Del Carmen Lutz, HAY RAKE OPERATOR [address] [place] [address] Nausea and vomiting, intractability of vomiting not specified, unspecified vomiting type Discharge Disposition: Home Social History Tobacco [...] Name Priority Date/Time Associated Diagnosis Comments XR FLUORO SMALL BOWEL ONLY Routine 08/16/2020 10:46 AM EDT Nausea and vomiting, intractability of vomiting not specified, unspecified vomiting type documented in this encounter Results * XR Fluoro Small [...] report, please contact the number below. ? Narrative 08/16/2020 12:50 PM EDT EXAMINATION: XR FLUORO SMALL BOWEL ONLY CLINICAL HISTORY: nausea. SBFT ordered specifically to evaluate small intestinal transit time to cecum. ??Please evaluate for stricturing. TECHNIQUE: Prior to administration of single or contrast agent, web press operator images of the abdomen were obtained. Single contrast small bowel follow through was performed and overhead and fluoroscopic spot films were obtained. Fluoro time: 2.15 minutes COMPARISON: CT abdomen and pelvis 06/29/2020 FINDINGS: Machine Technician: Nonobstructive bowel gas pattern. Air and fecal [...] to administration of single or contrast agent, web press operator images of theabdomen were obtained. Single contrast small bowel follow through was performed and overheadand fluoroscopic spot films were obtained. Fluoro time: 2.15 minutes COMPARISON: CT abdomen and pelvis 06/29/2020 FINDINGS: Machine Technician: Nonobstructive bowel gas pattern. Air and fecal [...] contact the number below. Electronically signed by: Juliane Pendleton MD, [facility] ([phone]), at 08/16/2020 12:50 PM Maria Del Carmen Lutz HAY RAKE OPERATOR IMG FLUORO ORDER JEN documented in this encounter Visit Diagnoses Diagnosis Nausea and vomiting, intractability of vomiting not specified, unspecified vomiting type documented in this encounter Administered Medications Inactive Administered Medications - up to 3 most recent administrations Medication Order MAR Action Action Date Dose Rate Site barium sulfate (Ezpaque) 60% (w/v) oral liquid 355 mL 355 mL, Oral, ONCE, 1 dose, On Jennifer 08/16/20 at 1000, Routine Given 08/16/2020 10:00 AM EDT 355 mLs barium sulfate (Ezpaque) 60% (w/v) oral liquid 355 mL 355 mL, Oral, ONCE, 1 dose, On Jennifer 08/16/20 at 1000, Routine Given 08/16/2020 10:00 AM EDT 355 mLs documented in this encounter Care Teams Travel Registered Nurse Nicu Relationship Specialty Start Date End Date Estefani Nicole MD [facility] [place] [address] PCP - General Family Medicine 10/19/19 12/22/21 documented as of this encounter
--- OUTSIDE RECORDS SUMMARY | 2024-07-07 11:44 | XMS_ITS | Referral Summary ---
Author Organization [facility] Address [address] [place] [address] Care Team Providers Care Demo Event Specialist Name Role Phone Kenia Devine MD Primary Care Provide r Encounters Date Type Department Care Team Description 06/15/2024 Lab Requisition [facility] Pathology & Laboratory Medicine - [address] [address] Outr Resulting Lab, Provider from Last 3 Months Allergies Active Allergy Reactions Criticality Noted Date [...] MOUTH EVERY DAY WITH MEALS 08/22/2023 Active Social History Tobacco Use Types Packs/Day Years [...] 14:52 EDT Sexual Orientation Not on file Last Filed [...] 38.91 10/22/2022 0907 EST Plan of Treatment Not on file Procedures Procedure Name Priority Date/Time Associated Diagnosis Comments VITAMIN D (25,OH) Routine 06/15/2024 7:03 EDT from Last 3 Months Results * VITAMIN D (25,OH) (06/15/2024 7:03 EDT) 25OH Vitamin D Tot 36 30 - 100 ng/mL 06/16/2024 12:06 EDT [facility] Comment: Vitamin D 25,OH Interpretive Ranges: Deficiency: ??<10.0 ng/mL Insufficiency: ??10.0 - 30.0 ng/mL Sufficiency: ??30.0 - 100.0 ng/mL Toxicity: ??>100.0 ng/mL Blood VENOUS BLOOD / Unknown 06/15/2024 7:03 EDT 06/15/2024 21:41 EDT Provider Outr Resulting Lab CHEMISTRY & BLOOD GAS ORDERABLES [facility] [address] [place], [place] [id number] from Last 3 Months Care Teams Demo Event Specialist Relationship Specialty Start Date End Date Kenia Devine MD [address] [place] [address] [place] [address] PCP - General Family Medicine - Hospital Medicine 10/22/22
--- OUTSIDE RECORDS SUMMARY | 2024-07-07 11:44 | XMS_ITS | Encounter Summary ---
Author Organization [facility] [place] [address] Care Team Providers Care Grapple Crew Leader Name Role Phone Estefani Nicole MD Primary Care Provider + Encounter Details Date Type Department Care Team (Late st Contact Info) Description 07/16/2020 Telephone Gastroenterology at [facility] [place] [place] [phone] Brittaney Colon RN Social History Tobacco Use Types Packs/Day Years Used Date Smoking Tobacco: Never Smokeless Tobacco: Never Sex and Gender Information Value Date Recorded Sex Assigned at Not on file Gender Identity Not on file Sexual Orientation Not on file documented as of this encounter Miscellaneous Notes * Telephone Encounter - Brittaney Colon RN - 07/17/2020 12:56 PM EDT Follow-up call placed to patient. He is off metoclopramide and skin rash is resolving. Patient understands that he will f/u with provider once testing is complete. * Telephone Encounter - Brittaney Colon RN - 07/16/2020 3:10 PM EDT Patient states he was in [facility] ED x 6 over the last two weeks for persistent nausea and vomiting. Given Ativan and Bendryl as his rescue treatment. States it did not work at all, buthas worked in the past. Eventually Joe was sent home. Nausea resolved after about 48 hours. ED doc sent patient to see Dr. Tamir Doe, a surgeon - to review if repeat EGD with dilation for pyloric stricture/stenosis was indicated. Per Dr. Doe - too soon for repeat procedure. Last done in December 2019. Dr. Pride prescribed metoclopramide 5 mg every 8 hours. Patient states he has experienced significant relief from nausea with the start of metoclopramide but he's having what he believes to be side effects - insomnia, rash on legs and decreased appetitive. I advised him to call Dr. Doe to discuss since he was the prescriber. Advised I would pass this on to Maria Del Carmen Lutz. documented in this encounter Plan of Treatment Not on file documented as of this encounter Visit Diagnoses Not on filedocumented in this encounter Care Teams Grapple Crew Leader Relationship Specialty Start Date End Date Estefani Nicole MD [address] [place] [address] PCP - General Family Medicine 10/19/19 12/22/21 documented as of this encounter
--- OUTSIDE RECORDS SUMMARY | 2024-07-07 11:44 | XMS_ITS | Encounter Summary ---
Author Organization [facility] [place] [address] Care Team Providers Care Manager It Training Name Role Phone Estefani Nicole MD Primary Care Provider + Encounter Details Date Type Department Care Team (Late st Contact Info) Description 02/17/2020 Telephone [place] [phone] Joanne Rodrigues Social History Tobacco Use Types Packs/Day Years Used Date Smoking Tobacco: Never Smokeless Tobacco: Never Sex and Gender Information Value Date Recorded Sex Assigned at Not on file Gender Identity Not on file Sexual Orientation Not on file documented as of this encounter Miscellaneous Notes * Telephone Encounter - Joanne Rodrigues - 02/17/2020 3:51 PM EDT Left message to inform patient that him appointment with Maria Del Carmen 03/06/2020 will be cancelled but can be rescheduled as a telephone conference or a telehealth visit if his would like to keep the appointment. Patient was asked to contact the office to reschedule. documented in this encounter Plan of Treatment Not on file documented as of this encounter Visit Diagnoses Not on filedocumented in this encounter Care Teams Manager It Training Relationship Specialty Start Date End Date Estefani Nicole MD [address] [place], [place] [id number] PCP - General Family Medicine 10/19/19 12/22/21 documented as of this encounter
--- OUTSIDE RECORDS SUMMARY | 2024-07-07 11:44 | XMS_ITS | Encounter Summary ---
Author Organization [facility] [place] [address] Care Team Providers Care Deskidding Machine Operator Name Role Phone Estefani Nicole MD Primary Care Provider + Encounter Details Date Type Department Care Team (Late st Contact Info) Description 08/30/2020 Orders Only [place] [address] Melissa Luna MD [facility] [place] [address] Encounter for screening colonoscopy (Primary Dx) Social History Tobacco Use Types Packs/Day Years Used Date Smoking Tobacco: Never Smokeless Tobacco: Never Sex and Gender Information Value Date Recorded Sex Assigned at Not on file Gender Identity Not on file Sexual Orientation Not on file documented as of this encounter Plan of Treatment Not on file documented as of this encounter Visit Diagnoses Diagnosis Encounter for screening colonoscopy- Primary Special screening for malignant neoplasms, colon documented in this encounter Care Teams Deskidding Machine Operator Relationship Specialty Start Date End Date Estefani Nicole MD [address] [place] [address] PCP - General Family Medicine 10/19/19 12/22/21 documented as of this encounter
--- OUTSIDE RECORDS SUMMARY | 2024-07-07 11:44 | XMS_ITS | Encounter Summary ---
Author Organization [facility] Address [facility] [place] [address] Care Team Providers Care Clothing Designer Name Role Phone Estefani Nicole MD Primary [...] Expiration Date Visits Re quested Visits Authorized [id number] 1 1 Encounter Details Date Type Department Care Team (Late st Contact Info) Description 08/31/2020 10:45 AM EDT - 08/31/2020 11:45 AM EDT Surgery [place] [address] Perez Rubalcava MD [facility] [place] [address] EGD WITH BIOPSY (WRVU 2.39) Social History Tobacco Use Types Packs/Day Years [...] REPORT Routine 08/31/2020 10:46 AM EDT Colonoscopy, Rocco Peralta ([id number]) 08/31/2020 10:18 AM EDT EGD/colon with anesthesia. 4L Nulytely prep already sent to pharmacy (please send patient instructions). INDICATION: please obtain duodenal and colonic bx for vomiting and abdominal pain. please obtain duodenal and colonic bx. Upper Gi Endoscopy, Biopsy ([id number]) 08/31/2020 10:18 AM EDT EGD/colon with anesthesia. [...] AM EDT 08/31/2020 10:59 AM EDT Narrative [facility] - 08/31/2020 10:59 AM EDT Specimen requisition ordered. ??Separate Pathology report to follow Perez Rubalcava MD PATHOLOGY/CYTOLOGY ORDERABLES Performing Organization Address City/[facility]/ZIP Co de Phone Number [facility] [place] [address] * Specimen to Pathology (08/31/2020 10:59 AM EDT) AP Specimen 08/31/2020 10:5 9 AM EDT 08/31/2020 10:59 AM EDT Narrative [facility] - 08/31/2020 10:59 AM EDT Specimen requisition ordered. ??Separate Pathology report to follow Perez Rubalcava MD PATHOLOGY/CYTOLOGY ORDERABLES [facility] [place] [address] * Specimen to Pathology (08/31/2020 10:59 AM EDT) AP Specimen 08/31/2020 10:5 9 AM EDT 08/31/2020 10:59 AM EDT Narrative [facility] - 08/31/2020 10:59 AM EDT Specimen requisition ordered. ??Separate Pathology report to follow Perez Rubalcava MD PATHOLOGY/CYTOLOGY ORDERABLES Performing Organization Address [facility] de Phone Number [facility] [place] [address] * Specimen to Pathology (08/31/2020 10:59 AM EDT) AP Specimen 08/31/2020 10:5 9 AM EDT 08/31/2020 10:59 AM EDT Narrative [facility] - 08/31/2020 10:59 AM EDT Specimen requisition ordered. ??Separate Pathology report to follow Perez Rubalcava MD PATHOLOGY/CYTOLOGY ORDERABLES Performing Organization Address [facility] de Phone Number [facility] [place] [address] * Specimen to Pathology (08/31/2020 10:59 AM EDT) AP Specimen 08/31/2020 10:5 9 AM EDT 08/31/2020 10:59 AM EDT Narrative [facility] - 08/31/2020 10:59 AM EDT Specimen requisition ordered. ??Separate Pathology report to follow Perez Rubalcava MD PATHOLOGY/CYTOLOGY ORDERABLES Performing Organization Address [facility] de Phone Number [facility] [place] [address] * Surgical Pathology Report (08/31/2020 10:46 AM EDT) Final Diagnosis [id number] ? Location: 4T; EA07; A The signing [...] Martinez MD Verified: ??09/06/2020 ?Pathologist Performed at: ??-[facility] Dept. of Pathology, [place], [place] SPECIMEN(S) SUBMITTED A - duodenum r/o [...] labeled E1. ??sns 09/06/2020 3:39 PM EDT [facility] GI Biopsy 08/31/2020 10:4 6 AM EDT 08/31/2020 10:46 AM EDT GI Biopsy 08/31/2020 10:4 6 AM EDT 08/31/2020 10:46 AM EDT GI Biopsy 08/31/2020 10:4 6 AM EDT 08/31/2020 10:46 AM EDT GI Biopsy 08/31/2020 10:4 6 AM EDT 08/31/2020 10:46 AM EDT GI Biopsy 08/31/2020 10:4 6 AM EDT 08/31/2020 10:46 AM EDT Perez Rubalcava MD PATHOLOGY/CYTOLOGY ORDERABLES [facility] [place] [address] * COLONOSCOPY (08/31/2020 10:08 AM EDT) COLONOSCOPY [facility] Endoscopy Procedure Date: 08/31/2020 10:08 AM ? Patient Name: Joe Garcia ? Date of : 1965 ? Age: 55 ? Order #: [id number] ? Instrument Name: [id number] ? Procedure: ? Colonoscopy Indications: ? Abdominal pain Providers: ? Perez Rubalcava MD, Carol ? Chasidy Ortega, ? Bench Assembler Operator Referring : ?Estefani Nicole Medicines: ? Monitored [...] Procedure Code(s): ?? --- Professional --- ? 46725, Colonoscopy, flexible; with ? removal of tumor(s), polyp(s), or ? other lesion(s) by snare technique ? 07283, 59, Colonoscopy, flexible; ? with biopsy, single or multiple ? --- Technical --- ? 44202, Colonoscopy, flexible; with ? removal of tumor(s), polyp(s), or ? other lesion(s) by snare technique ? 17367, 59, Colonoscopy, flexible; ? with biopsy, single or multiple CPT copyright 2019 [employer]. All rights reserved. The codes documented in this report are preliminary and upon certified procedural coder review may be revised to meet current compliance requirements. Attending Participation: ? I personally performed the entire procedure. ? ___ Perez Rubalcava MD 08/31/2020 11:01:10 AM This report has been signed electronically. Number of Addenda: 0 Note Initiated On: 08/31/2020 10:08 AM PROVATION 08/31/2020 10:0 8 AM EDT Estefani Nicole MD GENERAL SURGICAL ORDERABLES PROVATION * UPPER GI ENDOSCOPY (08/31/2020 10:07 AM EDT) Pathologist [facility] UPPER GI ENDOSCOPY [facility] Endoscopy Procedure Date: 08/31/2020 10:07 AM ? Patient Name: Joe Garcia ? Date of : 1965 ? Age: 55 ? Order #: [id number] ? Instrument Name: [id number] ? Procedure: ? Upper GI endoscopy Indications: ? Nausea/Vomiting Providers: ? Perez Rubalcava MD, Gladys ? Chasidy Ortega, ? Bench Assembler Operator Referring : ?Estefani Nicole [facility]: ? Monitored Anesthesia Care Complications: ? No [...] Procedure Code(s): ?? --- Professional --- ? 23510, Esophagogastroduod enoscopy, ? flexible, transoral; diagnostic, ? including collection of specimen(s) ? by brushing or washing, when ? performed (separate procedure) ? --- Technical --- ? 06106, Esophagogastroduod enoscopy, ? flexible, transoral; diagnostic, ? including collection of specimen(s) ? by brushing or washing, when ? performed (separate procedure) CPT copyright 2019 [employer]. All rights reserved. The codes documented in this report are preliminary and upon certified procedural coder review may be revised to meet current [...] CRNA) documented in this encounter Care Teams Clothing Designer Relationship Specialty Start Date End Date Estefani Nicole MD [address] [place] [address] PCP - General Family Medicine 10/19/19 12/22/21 documented as of this encounter
--- OUTSIDE RECORDS SUMMARY | 2024-07-07 11:44 | XMS_ITS | Encounter Summary ---
[place] [address] Care Team Providers Care Construction Cost Estimator Name Role Phone Estefani Nicole MD Primary Care Provider + Reason for Visit * Consultation (Routine) - Closed Specialty Diagnoses / Procedures Referred By Dasia phelps Referred To Contact Gastroenterology Diagnoses Nausea with vomiting Estefani Nicole MD [address] [place] [address] [facility] [address] [place] [address] Referral ID Status Reason Start Date Expiration Date Visits Re quested Visits Authorized [id number] Closed 10/19/2019 10/18/2020 1 1 Encounter Details Date Type Department Care Team (Latest Contact Info) Description 12/06/2019 12:30 PM EST Office Visit [place] [phone] Maria Del Carmen Lutz, STAFFING AND SCHEDULING COORDINATOR [address] [place] [address] Pyloric stenosis; Nausea and vomiting, intractability of vomiting not [...] Sign Reading Time Taken Comments Blood Pressure 119/80 12/06/2019 12:17 PM EST Pulse 89 12/06/2019 12:17 PM EST Temperature - - Respiratory Rate - - Oxygen Saturation - - Inhaled Oxygen Concentration - - Weight 99.7 kg (219 lb 12.8 oz) 020 12:17 PM EST w/ shoes Height 177.8 cm (5' 10) 12/06/2019 12: 17 PM EST Body Mass Index 31.54 12/06/2019 12:17 PM EST documented in this encounter Patient Instructions * Patient Instructions* Maria Del Carmen Lutz APRN - 12/06/2019 12:30 PM EST 1. Upper endoscopy to be done at [facility] 2. Follow up 3 months documented in this encounter Progress Notes * Maria Del Carmen Lutz APRN - 12/06/2019 12:30 PM EST SYSTEMS APPLICATIONS PROGRAMMING LEAD: Maria Del Carmen Lutz APRN PCP: Estefani Nicole MD REQUESTING PROVIDER: Estefani Nicole MD REASON FOR VISIT This is a 54 y.o. male with a history significant for pyloric stenosis, depression, anxiety, and asthma. [place] is returning to [place] today in follow up. He is accompanied by his sister. GI PROBLEM LIST 1. NAUSEA with vomiting with pyloric stenosis --ABD u/s 03/27/18; normal findings --CT scan abd/pelvis with contrast 01/17/18 ([facility]); lung nodule- otherwise unrevealing --EGD 07/06/18 [facility]; pyloric stenosis with balloon diltation. INTERVAL HISTORY- 12/06/19 Had an EGD done in June 2018 at [facility]. Pyloric stenosis. Balloon dilitation was done. This seemed to help for a little while. Was doing well after last upper endoscopy until end ofJuly. Currently having vomiting episodes similar to prior to EGD. Begins as an upset stomach and then it keeps getting worse. Admits to advil a few times a year. Has been taking omeprazole 40mg once daily. Hasn't had an episode in two weeks, but has been to the ER. HPI COMMENTS Onset of symptoms several years [...] red or painful eyes ENT: See HPI. CV: Denies palpitations, chest pain. : Difficulty starting a stream. PSYCH: Depression. . ALLERGIES Allergies Allergen Reactions ? ? Dust & Pollen Filter Mask [Facial Mask] Other (See Comments) rhinositis ??? Fish Containing Products Nausea And Vomiting ??? Peanut Anaphylaxis ??? Shellfish Containing Products Nausea And Vomiting CURRENT MEDICATIONS Medications reviewed and reconciled in e-DH Current Outpatient Medications: ??? omeprazole (PriLOSEC) 20 mg Capsule, Delayed Release(E.C.), Take 20 mg by mouth daily., Disp: ,Rfl: ??? ARIPiprazole (ABILIFY) 5 mg Tablet, , Disp: , Rfl: 0 ??? buPROPion (WELLBUTRIN XL) 150 mg Tablet Extended Release 24 hr, , Disp: , Rfl: 0 ??? mirtazapine (REMERON) 15 mg Tablet, 30 mg., Disp: , Rfl: 0 ??? risperiDONE (RISPERDAL) 1 mg Tablet, , Disp: , Rfl: 0 ??? sertraline (ZOLOFT) 100 mg Tablet, 50 mg., Disp: , Rfl: 0 ??? PROAIR HFA 90 mcg/actuation HFA Aerosol Inhaler, INHALE 2 PUFFS EVERY 4 HOURS, Disp: , Rfl: 0 ??? EPINEPHrine (ADRENALIN) 0.1 mg/mL (1:10,000) Syringe, Inject as directed., Disp: , Rfl: ??? melatonin 5 mg Tablet, Take 10 mg by mouth nightly., Disp: , Rfl: MEDICAL HISTORY 1. Depression SURGICAL HISTORY 1. Right inguinal hernia repair RELEVANT TESTING 1. EGD 06/2018 outside hospital; medium HH. Pyloric stenosis. 2. Abd x-ray 07/25/19 outside hospital; normal 3. GES 2018 outside hospital; normal 4. Upper GI series 05/2019 normal TREATMENT TRIALS 1. Omeprazole 40mg once daily 2. Balloon dilitation of pyloric sphincter; effective SOCIAL HISTORY Currently works in [employer]. Single. Has no kids. HABITS Denies tobacco use. Occasional alcohol use. Denies using other substances. FAMILY HISTORY Mother- unclear origin of cancer Father- lung cancer Denies family history of celiac disease, esophageal cancer, stomach cancer, colon cancer, pancreatic or liver issues, and IBD. PHYSICAL EXAM: Most Recent Vitals: 12/06/19 1217 BP: 119/80 Pulse: 89 Height: Height: 177.8 cm (5' 10) Weight: Weight: 99.7 kg (219 lb 12.8 oz)(w/ shoes) Body mass index is 31.54 kg/m??. GENERAL: Healthy-appearing in no acute distress. Appears stated age. NEURO: Alert and oriented to person, place, time, and situation. Cranial nerves II-XII intact. PSYCH: Mood appropriate. Good eye contact. Normal interaction. Answers all questions appropriately. LABS: ASSESSMENT This is a 54 y.o. male with a history significant for pyloric stenosis, depression, anxiety, and asthma. He is returning to [place] today in follow up. He is accompanied by his sister. Since our last visit he had EGD in June 2018 significant for pyloric stenosis. Balloon dilitation done at that time. Was doing well in terms of symptoms until the end of summer 2018. Currently experiencing recurrent vomiting episodes similar to those prior to balloon dilatation. Recommend repeat upper endoscopy for reevaluation of pylorus. If this continues to be an issue, consider surgical intervention. He is taking omeprazole daily. Not taking any NSAIDs. I will also consult with the motility team for further recommendations. PLAN 1. EGD to be done at [facility] 2. GIF 3 months Signed, Maria Del Carmen Lutz APRN 12/06/2019 12:57 PM Section of Gastroenterology & Hepatology [facility] documented in this encounter Plan of Treatment Not on file documented as of this encounter Visit Diagnoses Diagnosis Pyloric stenosis Acquired hypertrophic pyloric stenosis Nausea and vomiting, intractability of vomiting not specified, unspecified vomiting type documented in this encounter Care Teams Construction Cost Estimator Relationship Specialty Start Date End Date Estefani Nicole MD [facility] [place] [place] [address] PCP - General Family Medicine 10/19/19 12/22/21 documented as of this encounter
--- OUTSIDE RECORDS SUMMARY | 2024-07-07 11:45 | XMS_ITS | Encounter Summary ---
Author Organization [facility] Address [address] [place] [address] Care Team Providers Care Hall Tender Name Role Phone Kenia Devine MD Primary Care Provide r Reason for Visit * Reason Onset Date Comments Emesis 10/24/2022 Encounter Details Date Type Department Care Team (Late st Contact Info) Description 10/24/[address] [facility] Gastroenterology - [address] [phone] Bhavana Lopez NP [address] [facility] [place] [address] Emesis Social History Tobacco Use Types Packs/Day Years [...] encounter Miscellaneous Notes * Telephone Encounter - Bhavana Lopez NP - 10/24/2022 1077 EST LVMTCB--if patient calls back please relay: 1) Can start vitamin B2 400mg PO daily, coQ10 PO daily, magnesium 400-600mg PO daily. 2) Find out preferred pharmacy. GI pharmacist said amitriptyline safe to increase and I will send prescription for amitriptyline 50mg PO at bedtime. Should monitor for slowed breathing, HR, somnolence. 3) Unfortunately I could not find any cyclic vomiting syndrome trials in our area. He can check clinicaltrials.gov website periodically to see if there are any studies. Thanks! documented in this encounter Plan of Treatment Not on file documented as of this encounter Visit Diagnoses Not on filedocumented in this encounter Care Teams Hall Tender Relationship Specialty Start Date End Date Kenia Devine MD [address] [place] [phone] PCP - General Family Medicine - Hospital Medicine 10/22/22 documented as of this encounter
--- OUTSIDE RECORDS SUMMARY | 2024-07-07 11:45 | XMS_ITS | Encounter Summary ---
Author Organization [facility] Address [address] [place] [address] Care Team Providers Care Software Team Leader Name Role Phone Kenia Devine MD Primary Care Provide r Reason for Visit * Reason Onset Date Comments Medication Management 11/21/2022 Follow-up 11/21/2022 Encounter Details Date Type Department Care Team (Late st Contact Info) Description 11/21/2022 Telephone [facility] Gastroenterology - [facility] [address] [place], [place] [phone] Bhavana Lopez, PREMIX OPERATOR CONCENTRATE [address] [facility] [place] [address] Medication Management; Follow-up Social History Tobacco Use Types Packs/Day Years [...] encounter Miscellaneous Notes * Telephone Encounter - Najma Freeman RN - 11/28/2022 1238 EST Call made to Joe, mailbox is full unable to leave message. * Telephone Encounter - Najma Freeman RN - 11/28/[address] Brook Pineda returned call regarding haldol and Ativan for Joe. After discussion she will defer to his PCP for placing orders for Haldol and ativan. PCP office called no answer to call back after 1 pm. * Telephone Encounter - Najma Freeman RN - 11/24/2022 1355 EST PCP office called to confirm received request for lorazepam and Haldol for this patient. Call center will have office call back. Patient called no message left. * Telephone Encounter - Izabella Sheikh - 11/21/2022 1539 EST Per Bhavana, patient checked with his PCP to see if she would prescribe medications Haldol and Ativan that Bhavana recommended and his PCP Brook Pineda said she would prescribe them, it she could just discuss with Bhavana what dose he should be on. documented in this encounter Plan of Treatment Not on file documented as of this encounter Visit Diagnoses Not on filedocumented in this encounter Care Teams Software Team Leader Relationship Specialty Start Date End Date Kenia Devine MD [address] [place] [address] [place] [phone] PCP - General Family Medicine - [facility] Medicine 10/22/22 documented as of this encounter
--- OUTSIDE RECORDS SUMMARY | 2024-07-07 11:45 | XMS_ITS | Encounter Summary ---
Author Organization [facility] Address [address] [place] [address] Care Team Providers Care Hebrew Professor Name Role Phone Kenia Devine MD Primary Care Provide r Reason for Visit * Reason Comments New Patient Visit Nausea - vomiting * Consult (Routine) - Receiving Office to Obtain Authorization Specialty Diagnoses / Procedures Referred By Contac t Referred To Contact Diagnoses Nausea with vomiting, unspecified Kenia Devine MD [address] [place] [phone] [facility] [address] [place] [address] Referral ID Status Reason Start Date Expiration Date Visits Requested Visits Authorized [id number] Receiving Office to Obtain Authorization Second Opinion 1 1 Encounter Details Date Type Department Care Team (Late st Contact Info) Description 10/22/2022 9:[address] [facility] G[facility]ology - [facility] [address] [place] [address] Bhavana Lopez NP [address] [facility], [address] [place] [address] Cyclic vomiting syndrome (Primary Dx); Chronic RUQ pain Social History Tobacco Use Types Packs/Day Years Used Date Smoking Tobacco: Never Smokeless Tobacco: Never Tobacco Cessation:Counseling Given: Not Answered Interpersonal Safety Answer Date Record ed Physically Hurt Never 06/17/2020 Verbally Threaten Not on file 06/17/2020 Sex and Gender Information Value Date Recorded Sex Assigned at Not on file Gender Identity Male 03/13/2020 14:52 EDT Sexual Orientation Not on file documented as of this encounter Last Filed Vital Signs Vital Sign Reading Time Taken Comments Blood Pressure 141/101 10/22/2022906 EST Pulse 68 10/22/2022906 EST Temperature - - Respiratory Rate - - Oxygen Saturation - - Inhaled Oxygen Concentration - - Weight 126.9 kg (279 lb 12. 8 oz) 10/22/2022906 EST Height 177.8 cm (5' 10) 10/22/2022906 EST pt reported Body Mass Index 40.15 10/22/2022906 EST documented in this encounter Patient Instructions * Patient Instructions* Bhavana Lopez NP - 10/22/2022 9:20 EST 1. Fiber: Drink lots of water (at least 2L) throughout the day. Consider starting fiber supplementation--I would use the powder version rather than the pills: Try synthetic fiber supplement (Citrucel, FiberCon etc.) or natural carlos senegal fiber (Gay'sTummy Fiber). Start with 1/4 teaspoon and increase by another 1/4 teaspoon every 3-4 days. To improve tolerability, can divide dosage 1-3 times/day. titrate to a toothpaste consistency bowel movement 2. If stools are still hardened, use colace (over the counter stool softener) 100 mg 1-2 times daily 3. If still having troubles with hardened stool, try miraLAX 1 cap 1-2 times daily. Can increase amount of miraLAX as needed. documented in this encounter Progress Notes * Bhavana Lopez NP - 10/22/2022919 EST Gastroenterology & Hepatology Initial Visit Reason for Referral: Nausea and vomiting PCP: Luh Dyer This note was dictated using [employer] software for dictation, therefore please excuse any inadvertentdictation errors in this note. Impression: Extensive work-up unrevealing of etiology for intractable episodes of nausea and vomiting. No additional work-up indicated. Symptoms continue to be consistent with cyclic vomiting syndrome. Patient has tried a number of medications with [facility] as outlined below and understands that I do not have a lot of additional interventions to offer. Considering he has noticed a decrease in frequency with amitriptyline, he may benefit from an increase. Will discuss with GI pharmacist considering polypharmacy. Discussed risk for serotonin syndrome and what to monitor for. Will provide with ER plan to assist with acute episodes. As mentioned, pt is on a number of psychiatric medications that can create drug to drug interactions. He may benefit, however, from as needed Ativan and Haldol to try to decrease ER visits. Patient does have a psychiatrist and encouraged him to discuss a prescription for lorazepam and haloperidol with his psychiatrist. Discussed that there aresome experimental protocols for experimental infusions for intractable cyclic vomiting syndrome, however I am uncertain of any studies ongoing studies within the area. Will investigate general clinical trials for cyclic vomiting syndrome to see if patient may qualify considering he has been refractory to most treatments that we have for cyclic vomiting syndrome. Plan: 1. Cyclic vomiting syndrome: --Will send ER plan via mail --Will speak with GI pharmacist about increasing amitriptyline considering potential drug-drug intereactions --RN call patient about supplements for prevention: vitamin B2, magnesium, vitamin D, coenzyme Q10 --Will investigate ongoing trials at [facility] (ketamine infusions?) for cyclic vomiting syndrome and letpatient know --Speak with psychiatrist about oral or subq lorazepam and/or haloperidol prescriptions --Patient asking about THC use. Consider cautious use of THC as needed for nausea and vomiting episodes; discussed risk of cannabis hyperemesis syndrome, but is not a consideration at this time as patient has not tried cannabis in the past. --Follow-up 6 months HPI: Joe Garcia is a 57 y.o. male with a past medical history of depression, anxiety, AR, ADHD, GERD, HTN, asthma here today for consultation regarding nausea and vomiting. Patient seen at [facility] and is here for a second opinion. Patient has 10-15 episodes of cyclic vomiting throughout the year. This has been going on for over a decade. Usually seeks care in the ER as he is unable to control the episodes at home. Intractable nausea and vomiting can last 2 to 7 days at a time. Has abdominal discomfort, but no abdominal pain.Has little morning prior to onset of symptoms. No nausea. Has a loose stool followed by increased stomach noises and followed by intractable nausea vomiting. Prior to seeking care in the ER, he attempts to use rectal Phenergan, but has essentially no impact on his symptoms. Typically is able to abort episodes with IV Ativan and Haldol in the ER. Has tried interventions as outlined below with out s ignificant improvement. He does believe that starting amitriptyline has slightly improved the frequency of the episodes, but they seem to be lasting longer in duration than they did previously. Denies THC use. Otherwise, patient typically has a bowel movement about every other day. Does have sensation of complete emptying, but stools typically hard in consistency. Has not tried anything to help regulate bowel movements. More recently, has been having episodic right upper quadrant pain. Pain is not postprandial. Was found to have cholelithiasis and patient is scheduled to have lap leighton next week. Therapy tried: Zofran--doesn't help Amitriptyline 10mg--->25mg; has slightly improved the frequency Compazine 25mg rectal--not doing much Compazine 10mg tab Omeprazole 40mg--doesn't help, stopped Sumatriptan nasal spray--didn't help Aprepitant Irina Metoclopramide--urticaria Wellbutrin, mirtazapine, risperidone, sertraline Pertinent labs, imaging, procedures: From [facility] chart review: 1. ABD u/s 03/27/18; normal findings 2. CT scan abd/pelvis with contrast 01/17/18 ([facility]); lung nodule- otherwise unrevealing 3. EGD 07/06/18 [facility]; pyloric stenosis with balloon diltation. 4. [...] gland polyps. normal duodenum. One small gallstone. PMH: As stated in HPI. ROS: A 10-point ROS was performed and is negative other than stated in HPI. No current outpatient medications on file. Not on File Family History: No personal history of migraines. Sister with migraines. Objective: Last Vitals: BP (!) 141/101 Pulse 68 Ht 177.8 cm (70) Comment: pt reported Wt (!) 126.9 kg (279 lb 12.8 oz) BMI 40.15 kg/m?? General: Well appearing and in NAD. Speech is fluent and clear. Skin: Color pink. Warm and dry. Nails without clubbing or cyanosis. HEENT: Conjunctiva pink, sclera white. Bhavana Lopez NP Gastroenterology & Hepatology I spent a total of 45 minutes on the date of this encounter meeting with the patient and reviewing documentation/coordinating care as described in the above note. documented in this encounter Plan of Treatment Not on file documented as of this encounter Visit Diagnoses Diagnosis Cyclic vomiting syndrome- Primary Persistent vomiting Chronic RUQ pain Abdominal pain, right upper quadrant documented in this encounter Historical Medications * This list may reflect changes made after this encounter. Medication Sig Dispensed Refills Start Date End Date ALBUTEROL INHL Inhale as directed. ibuprofen (MOTRIN) 800 mg tablet Take 1 Tablet by mouth. 05/01/2022 melatonin 5 mg tablet Take 2 Tablets by mouth. mirtazapine (REMERON) 30 mg tablet 10/13/2022 baclofen (LIORESAL) 10 mg tablet Take 10 mg by mouth. 10/17/2021 promethazine (PHENERGAN) 25 mg suppository INSERT ONE SUPPOSITORY RECTALLY EVERY 4 HOURS NEEDED FOR NAUSEA AND VOMITING 09/18/2022 SYMBICORT 80-4.5 mcg/actuation HFA aerosol inhaler inhaler INHALE 2 PUFFS BY MOUTH TWO TIMES A DAY 10/10/2022 metoprolol SUCCinate 50 mg capsule,sprinkle,ER 24hr Take 50 mg by mouth. 06/04/2022 omeprazole (PRILOSEC) 40 mg capsule Take 1 Capsule by mouth. 05/01/2022 gabapentin (NEURONTIN) 100 mg capsule Take by mouth 3 times daily. 10/08/2022 risperiDONE (RISPERDAL) 1 mg tablet Take 1 mg by mouth. 08/12/2022 11/10/20 escitalopram oxalate (LEXAPRO) 20 mg tablet Take 20 mg by mouth. 08/12/2022 11/10/2022 amitriptyline (ELAVIL) 25 mg tablet 10/13/2022 10/24/2022 added in this encounter Care Teams Hebrew Professor Relationship Specialty Start Date End Date Kenia Devine MD [address] [place] [address] [place] [phone] PCP - General Family Medicine - Hospital Medicine 10/22/22 documented as of this encounter
--- OUTSIDE RECORDS SUMMARY | 2024-07-07 11:45 | XMS_ITS | Encounter Summary ---
Author Organization [facility] Address [address] [place] [address] Care Team Providers Care Health Information Technologist Name Role Phone Unavailable Primary Care Provider Unavailabl e Reason for Visit * (Routine/Next Available) - Receiving Office to Obtain Authorization Specialty Diagnoses / Procedures Referred By Dasia phelps Referred To Contact Procedures US OUTSIDE IMAGES BODY Unknown, Provider, Referral ID Status Reason Start Date Expiration Date Visits Requested Visits Authorized [id number] Receiving Office to Obtain Authorization 09/22/2022 1 1 Encounter Details Date Type Department Care Team (Latest Contact Info) Description 09/09/2022 - 09/09/2022 23:59 EDT Hospital Encounter [facility] Secondary Reads [place] Discharge Disposition: Home or Self Care Social History Tobacco Use Types Packs/Day Years Used Date Smoking Tobacco: Never Assessed Interpersonal Safety Answer Date Record ed Physically Hurt Never 06/17/2020 Verbally Threaten Not on file 06/17/2020 Sex and Gender Information Value Date Recorded Sex Assigned at Not on file Gender Identity Male 03/13/2020 14:52 EDT Sexual Orientation Not on file documented as of this encounter Medications at Time of Discharge Medication Sig Dispensed Refills Start Date End Date baclofen (LIORESAL) 10 mg tablet Take 10 mg by mouth. 10/17/2021 ibuprofen (MOTRIN) 800 mg tablet Take 1 Tablet by mouth. 05/01/2022 metoprolol SUCCinate 50 mg capsule,sprinkle,ER 24hr Take 50 mg by mouth. 06/04/2022 omeprazole (PRILOSEC) 40 mg capsule Take 1 Capsule by mouth. 05/01/2022 escitalopram oxalate (LEXAPRO) 20 mg tablet Take 20 mg by mouth. 08/12/2022 11/10/2022 risperiDONE (RISPERDAL) 1 mg tablet Take 1 mg by mouth. 08/12/2022 11/10/20 documented as of this encounter Discharge Disposition Disposition Code Departure Means Destination Home or Self Care documented in this encounter Plan of Treatment Not on file documented as of this encounter Procedures Procedure Name Priority Date/Time Associated Diagnosis Comments US OUTSIDE IMAGES BODY Routine 09/09/2022 10:54 EDT documented in this encounter Results * US OUTSIDE IMAGES BODY (09/09/2022 10:54 EDT) Narrative 09/22/2022 10:54 EST This is a non-reportable exam. Provider Unknown MD GOETZ OTHER IMAGING OR DERABLES documented in this encounter Visit Diagnoses Not on filedocumented in this encounter
--- OUTSIDE RECORDS SUMMARY | 2024-07-07 11:45 | XMS_ITS | Encounter Summary ---
Author Organization [facility] Address [address] [place] [address] Care Team Providers Care Posting Clerk Name Role Phone Unavailable Primary Care Provider Unavailabl e Encounter Details Date Type Department Care Team (Latest Contact Info) Description 01/30/2010 13:54 EDT - 01/30/2010 23:59 EDT Hospital Encounter [facility] Neurophysiology - [facility] [place] [address] [place], [place] [phone] Unknown, MD Dary Perez Cooper MD Emg, MD Discharge Disposition: Auto Discharge Social History Tobacco Use Types Packs/Day Years Used Date Smoking Tobacco: Never Assessed Sex and Gender Information Value Date Recorded Sex Assigned at Not on file Gender Identity Male 03/13/2020 14:52 EDT Sexual Orientation Not on file documented as of this encounter Discharge Disposition Disposition Code Departure Means Destination Auto Discharge Home documented in this encounter Plan of Treatment Not on file documented as of this encounter Visit Diagnoses Not on filedocumented in this encounter
--- OUTSIDE RECORDS SUMMARY | 2024-07-07 11:45 | XMS_ITS | Encounter Summary ---
Author Organization [facility] Address [address] [place] [address] Care Team Providers Care Criminalist Name Role Phone Unavailable Primary Care Provider Unavailabl e Encounter Details Date Type Department Care Team (Latest Contact Info) Description 02/02/2015 15:50 EDT - 02/02/2015 23:59 EDT Hospital Encounter [address] [address] Unknown, Provider, Discharge Disposition: Home or Self Care Social History Tobacco Use Types Packs/Day Years Used Date Smoking Tobacco: Never Assessed Sex and Gender Information Value Date Recorded Sex Assigned at Not on file Gender Identity Male 03/13/2020 14:52 EDT Sexual Orientation Not on file documented as of this encounter Discharge Disposition Disposition Code Departure Means Destination Home or Self Long-Term documented in this encounter Plan of Treatment Not on file documented as of this encounter Visit Diagnoses Not on filedocumented in this encounter
--- OUTSIDE RECORDS SUMMARY | 2024-07-07 11:45 | XMS_ITS | Encounter Summary ---
Author Organization [facility] Address [address] [place] [address] Care Team Providers Care Director Security Risk Management Name Role Phone Kenia Devine MD Primary Care Provide r Encounter Details Date Type Department Care Team (Late st Contact Info) Description 10/27/2022 Orders Only [facility] Gastroenterology - [facility] [address] [place] [address] Najma Freeman, RN [address] [place] [address] Social History Tobacco Use Types Packs/Day Years [...] on filedocumented in this encounter Care Teams Director Security Risk Management Relationship Specialty Start Date End Date Kenia Devine MD [address] [place] [address] [place] [phone] PCP - General Family Medicine - Hospital Medicine 10/22/22 documented as of this encounter
--- OUTSIDE RECORDS SUMMARY | 2024-07-07 11:45 | XMS_ITS | Encounter Summary ---
Author Organization [facility] Address [address] [place] [address] Care Team Providers Care Acls Nurse Name Role Phone Kenia Devine MD Primary Care Provide r Encounter Details Date Type Department Care Team (Late st Contact Info) Description 11/24/2022 Orders Only [facility] Gastroenterology - [facility] [address] [place] [address] Najma Freeman, RN [address] [place] [address] Social History Tobacco Use Types Packs/Day Years [...] on filedocumented in this encounter Care Teams Acls Nurse Relationship Specialty Start Date End Date Kenia Devine MD [address] [place] [address] [place] [phone] PCP - General Family Medicine - Hospital Medicine 10/22/22 documented as of this encounter
--- OUTSIDE RECORDS SUMMARY | 2024-07-07 11:45 | XMS_ITS | Encounter Summary ---
Author Organization [facility] Address [address] [place] [address] Care Team Providers Care Box Icer Name Role Phone Unavailable Primary Care Provider Unavailabl e Reason for Visit * Reason Onset Date Comments Advice Only 10/11/2014 Encounter Details Date Type Department Care Team (Late st Contact Info) Description 10/11/2014 Telephone [facility] - [facility] Interventional Pain [address] [place], [place] [phone] Amari Tucker, RN [address] [place] [address] Advice Only Social History Tobacco Use Types Packs/Day Years Used Date Smoking Tobacco: Never Assessed Sex and Gender Information Value Date Recorded Sex Assigned at Not on file Gender Identity Male 03/13/2020 14:52 EDT Sexual Orientation Not on file documented as of this encounter Miscellaneous Notes * Telephone Encounter - Amari Tucker, RN - 10/19/2014 0959 EST . documented in this encounter Plan of Treatment Not on file documented as of this encounter Visit Diagnoses Not on filedocumented in this encounter
--- OUTSIDE RECORDS SUMMARY | 2024-07-07 11:45 | XMS_ITS | Encounter Summary ---
Author Organization [facility] Address [address] [place] [address] Care Team Providers Care Steward/Stewardess Railroad Dining Car Name Role Phone Unavailable Primary Care Provider Unavailabl e Encounter Details Date Type Department Care Team (Late st Contact Info) Description 05/12/2019 Results Only [facility] [phone] Catherine Knapp MD [address] [place] [phone] Social History Tobacco Use Types Packs/Day Years Used Date Smoking Tobacco: Never Assessed Sex and Gender Information Value Date Recorded Sex Assigned at Not on file Gender Identity Male 03/13/2020 14:52 EDT Sexual Orientation Not on file documented as of this encounter Plan of Treatment Not on file documented as of this encounter Procedures Procedure Name Priority Date/Time Associated Diagnosis Comments SURGICAL PATHOLOGY Routine 05/12/2019 8:19 EDT documented in this encounter Results * SURGICAL PATHOLOGY (05/12/2019 8:19 EDT) Pathology Report: SURGICAL PATHOLOGY REPORT Reports generated via electronic interface contain original data; however they are lacking the format of the original report. Caution should be taken when reading/interpreting unformatted reports. Name: ? EUGENIA GARCIA ? Accession #: ? [id number] ? : ? 1965 (Age: 53) ??M ? Collect Date: ? 05/12/2019 ? Location: ? [facility] ? Receive Date: ? 05/13/2019 ? Provider: CATHERINE KNAPP II, MD Copy to: ? Final Pathologic Diagnosis: STOMAH, PYORUS, BIOPSY: - Antral type mucosa with no specific pathologic features. - Negative for H. pylori on H&E stain Comment: Lab Associate slides of this case were reviewed at the intradepartmental consultation conference. Dr. Lorie Bishop 05/17/2019 9:09 AM Document reviewed and electronically signed by: LORIE BISHOP MD Report ??Date: 05/17/2019 16:12 By the signature above, the attending physician certifies that he/she has personally conducted a gross and/or microscopic examination of the described specimens and rendered or confirmed the above diagnosis. Specimen(s) Received: ? Pylorus biopsy Clinical History: ? Vomiting, known pyloric stenosis Gross Description: ? Received in formalin labelled with proper patient identification (initials D, B) and pylorus biopsy are two light lewis biopsies each measuring 0.2 x 0.2 x 0.2 cm. Submitted intact in block 1. ELEN Burden (ASCP) 05/16/2019 7:34 AM End of Report [facility] 05/12/2019 8:19 EDT 05/13/2019 8:19 EDT Catherine Knapp MD PATHOLOGY ORDERABLES [facility] [address] [place] [address] documented in this encounter Visit Diagnoses Not on filedocumented in this encounter
--- OUTSIDE RECORDS SUMMARY | 2024-07-07 11:45 | XMS_ITS | Encounter Summary ---
Author Organization [facility] Address [address] [place] [address] Care Team Providers Care Tube Closing Machine Operator Name Role Phone Kenia Devine MD Primary Care Provide r Encounter Details Date Type Department Care Team (Late st Contact Info) Description 10/24/2022 Orders Only [facility] Gastroenterology - [address] [phone] Bhavana Lopez, TRACTOR TRAILER OPERATOR [address] [facility], [address] [place] [phone] Social History Tobacco Use Types Packs/Day Years [...] Start Date End Da te amitriptyline (ELAVIL) 25 mg tablet 10/13/2022 10/24/2022 documented as of this encounter Care Teams Tube Closing Machine Operator Relationship Specialty Start Date End Date Kenia Devine MD [address] [place] [address] [place] [phone] PCP - General Family Medicine - [facility] Medicine 10/22/22 documented as of this encounter
--- OUTSIDE RECORDS SUMMARY | 2024-07-07 11:45 | XMS_ITS | Encounter Summary ---
Author Organization [facility] Address [address] [place] [address] Care Team Providers Care Senior Internal Auditor Name Role Phone Kenia Devine MD Primary Care Provide r Reason for Visit * Reason Onset Date Comments Follow-up 10/28/2022 Encounter Details Date Type Department Care Team (Late st Contact Info) Description 10/28/2022 Telephone [facility] Gastroenterology - [facility] [address] [place], [place] [address] Najma Freeman, RN [address] [place] [address] Follow-up Social History Tobacco Use Types Packs/Day [...] Miscellaneous Notes * Telephone Encounter - Najma Freeman, ISREAL - 10/28/2022 1337 EST Order for amitriptyline sent to [place] [facility], patient is aware. documented in this encounter Plan of Treatment Not on file documented as of this encounter Visit Diagnoses Not on filedocumented in this encounter Care Teams Senior Internal Auditor Relationship Specialty Start Date End Date Kenia Devine MD [address] [place] [phone] PCP - General Family [facility] 10/22/22 documented as of this encounter
--- OUTSIDE RECORDS SUMMARY | 2024-07-07 11:45 | XMS_ITS | Encounter Summary ---
Author Organization [facility] Address [address] [place] [address] Care Team Providers Care Supervisor Finish End Name Role Phone Unavailable Primary Care Provider Unavailabl e Encounter Details Date Type Department Care Team (Latest Contact Info) Description 06/25/2018 17:43 EDT - 06/25/2018 23:59 EDT Hospital Encounter [address] [address] Unknown, Provider, Discharge Disposition: Home or Self Care Social History Tobacco Use Types Packs/Day Years Used Date Smoking Tobacco: Never Assessed Sex and Gender Information Value Date Recorded Sex Assigned at Not on file Gender Identity Male 03/13/2020 14:52 EDT Sexual Orientation Not on file documented as of this encounter Discharge Disposition Disposition Code Departure Means Destination Home or Self Senior Living documented in this encounter Plan of Treatment Not on file documented as of this encounter Visit Diagnoses Not on filedocumented in this encounter
--- OUTSIDE RECORDS SUMMARY | 2024-07-07 11:45 | XMS_ITS | Encounter Summary ---
Author Organization [facility] Address [address] [place] [address] Care Team Providers Care Consumer Recruiter Name Role Phone Unavailable Primary Care Provider Unavailabl e Reason for Visit * Reason Onset Date Comments Appointment Related 03/01/2020 Encounter Details Date Type Department Care Team (Late st Contact Info) Description 03/01/2020 Telephone [facility] Gastroenterology - [address] [address] Onur Flowers MD [address] [facility], [address] [place] [address] Appointment Related Social History Tobacco Use Types Packs/Day Years Used Date Smoking Tobacco: Never Assessed Sex and Gender Information Value Date Recorded Sex Assigned at Not on file Gender Identity Male 03/13/2020 14:52 EDT Sexual Orientation Not on file documented as of this encounter Miscellaneous Notes * Telephone Encounter - Reema Garcia - 03/01/2020 1510 EDT Left message for Joe in regards to his scheduled office visit scheduled on 05/08/[address] Flowers and advised that we could look at moving the appointment up to a sooner appointment date and conducting the appointment via Televideo (Zoom). I asked patient to call office back to discuss further. documented in this encounter Plan of Treatment Not on file documented as of this encounter Visit Diagnoses Not on filedocumented in this encounter
--- OUTSIDE RECORDS SUMMARY | 2024-07-07 11:45 | XMS_ITS | Encounter Summary ---
Author Organization [facility] Address [address] [place] [address] Care Team Providers Care Horticultural Farmworker Name Role Phone Kenia Devine MD Primary Care Provide r Encounter Details Date Type Department Care Team (Late st Contact Info) Description 01/25/2020 Lab Requisition [facility] Pathology & Laboratory Medicine - [facility] [address] [place] [address] David Clemens MD [address] [place] [phone] Encounter for other general examination Social History Tobacco Use Types Packs/Day Years Used Date Smoking Tobacco: Never Assessed Sex and Gender Information Value Date Recorded Sex Assigned at Not on file Gender Identity Male 03/13/2020 14:52 EDT Sexual Orientation Not on file documented as of this encounter Plan of Treatment Not on file documented as of this encounter Procedures Procedure Name Priority Date/Time Associated Diagnosis Comments SURGICAL PATHOLOGY Today 01/25/2020 9:45 EDT documented in this encounter Results * SURGICAL PATHOLOGY (01/25/2020 9:45 EDT) Final Diagnosis A. STOMACH, POLYP, BIOPSY: - Fundic gland polyp. B. ESOPHAGUS, GE JUNCTION, BIOPSY: - Gastric esophageal junction mucosa with reflux esophagitis. - Negative for intestinal metaplasia and dysplasia. C. COLON, RIGHT, POLYP, BIOPSY: - Tubular adenoma. D. COLON, SIGMOID, POLYP, BIOPSY: - Suggestive of hyperplastic polyp. 01/26/2020 11:01 EDT [facility] at 1101 Clinical History Pyloric stenosis, history of polyps. Gastric polyps, colon polyps. 01/26/2020 11:01 [facility] Attestation By the signature below, the attending physician certifies that they have 1) personally conducted a gross and/or microscopic examination of the described specimen(s), and/or personally interpreted the results of laboratory testing of the described specimen(s), and 2) personally rendered or confirmed the above diagnosis. 01/26/2020 11:01 [facility] at 1101 Gross Description A. Received in formalin labelled with proper patient identification (initials D, B) and gastric polyp is a single lewis-white tissue fragment (0.3 x 0.2 x 0.1 cm). Submitted intact in A1. B. Received in formalin labelled with proper patient identification (initials D, B) and GEJ biopsy is a single lewis-white tissue fragment (0.2 x 0.1 x 0.1 cm). Submitted intact in B1. C. Received in formalin labelled with proper patient identification (initials D, B) and right colon polyp is a single lewis tissue fragment (0.3 x 0.2 x 0.1 cm). Submitted intact in C1. D. Received in formalin labelled with proper patient identification (initials D, B) and sigmoid polyp is a single lewis tissue fragment (0.3 x 0.2 x 0.1 cm). Submitted intact in D1. MIHRAB ALI 01/26/2020 21:35 01/26/2020 11:01 [facility] Scanned Images 01/26/2020 11:01 [facility] Tissue ENTIRE SIGMOID COLON / Unknown 01/25/2020 9:45 EDT 01/25/2020 21:23 EDT Tissue specimen (specimen) ESOPHAGEAL STRUCTURE / Unknown 01/25/2020 9:45 EDT 01/25/2020 21:23 EDT Tissue specimen (specimen) RIGHT COLON STRUCTURE / Unknown 01/25/2020 9:45 EDT 01/25/2020 21:23 EDT Tissue specimen (specimen) SIGMOID COLON STRUCTURE / Unknown 01/25/2020 9:45 EDT 01/25/2020 21:23 EDT David Clemens MD PATHOLOGY ORDERABLES [facility] [address] [place] [address] documented in this encounter Visit Diagnoses Diagnosis Encounter for other general examination documented in this encounter Care Teams Horticultural Farmworker Relationship Specialty Start Date End Date Kenia Devine MD [address] [place] [address] [place] [phone] PCP - General Family Medicine - Hospital Medicine 10/22/22 documented as of this encounter
--- OUTSIDE RECORDS SUMMARY | 2024-07-07 11:45 | XMS_ITS | Encounter Summary ---
Author Organization [facility] Address [address] [place] [address] Care Team Providers Care Mold Polisher Name Role Phone Kenia Devine MD Primary Care Provide r Reason for Visit * Reason Onset Date Comments Medication Management 11/28/2022 Follow-up 11/28/2022 Encounter Details Date Type Department Care Team (Late st Contact Info) Description 11/28/2022 Telephone [facility] Gastroenterology - [facility] [address] [place] [address] Najma Freeman, RN [address] [place] [address] Medication Management; Follow-up Social History Tobacco Use [...] Telephone Encounter - Najma Freeman RN - 12/11/2022 1435 EST Spoke with PCP office regarding medications Ativan and/or Haldol suggested by Bhavana Lopez NP for his intractable vomiting episodes. This office wanting to make sure they have received suggestions if needed. Per office is currently on antiemetic medications Phenergan and ondansetron. * Telephone Encounter - Najma Freeman RN - 11/28/2022 1526 EST PCP office called regarding medication management. Message left on voicemail to return call to clinic. documented in this encounter Plan of Treatment Not on file documented as of this encounter Visit Diagnoses Not on filedocumented in this encounter Care Teams Mold Polisher Relationship Specialty Start Date End Date Kenia Devine MD [address] [place] [address] [place] [phone] PCP - General Family Medicine - Hospital Medicine 10/22/22 documented as of this encounter
--- OUTSIDE RECORDS SUMMARY | 2024-07-07 11:45 | XMS_ITS | Encounter Summary ---
Author Organization [facility] Address [address] [place] [address] Care Team Providers Care Receptionist/Telephone Operator Name Role Phone Unavailable Primary Care Provider Unavailabl e Encounter Details Date Type Department Care Team (Late st Contact Info) Description 06/25/2018 Results Only [facility] [phone] Hernandez Clemens MD [address] [place] [address] Social History Tobacco Use Types Packs/Day Years [...] Date/Time Associated Diagnosis Comments SURGICAL PATHOLOGY Routine 06/25/2018 22 :38 EDT documented in this encounter Results * SURGICAL PATHOLOGY (06/25/2018 22:38 EDT) Pathology Report: SURGICAL PATHOLOGY REPORT Reports generated via electronic interface contain original data; however they are lacking the format of the original report. Caution should be taken when reading/interpreti ng unformatted reports. Name: ? EUGENIA GARCIA ? Accession #: ? [id number] ? : ? 1965 (Age: 52) ??M ? Collect Date: ? 06/25/2018 ? Location: ? [facility] ? Receive Date: ? 06/25/2018 ? Provider: DAVID CLEMENS MD Copy to: Bernardo BUENROSTRO CAMPGROUND MANAGER ? Final Pathologic Diagnosis: A. STOMACH, POLYPECTOMY: - Benign fundic gland polyp. B. ESOPHAGUS, GE JUNCTION, BIOPSY: - Reflux esophagitis. - Squamoglandular junction mucosa with abundant chronic inflammation. - Squamous mucosa with spongiosis, intraepithelial lymphocytes, and eosinophils (up to six per high power field). - Special stain for PAS/Alcian blue was performed and shows negative staining for intestinal metaplasia. Document reviewed and electronically signed by: TAYE BRAY MD Report ??Date: 07/02/2018 17:55 By the signature above, the attending physician certifies that he/she has personally conducted a gross and/or microscopic examination of the described specimens and rendered or confirmed the above diagnosis. Specimen(s) Received: A. ??Stomach polyp B. ??GE junction biopsy Clinical History: Recurrent vomiting, pyloric stricture Gross Description: A. ?Received in formalin labelled with proper patient identification (initials D, B) and stomach polyp is a single pink-lewis tissue fragment (0.5 x 0.3 x 0.2 cm). Submitted intact in block A1. B. ?Received in formalin labelled with proper patient identification (initials D, B) and GE junction biopsy are two pink-lewis tissues (0.3 x 0.2 x 0.1 cm and 0.3 x 0.2 x 0.2 cm). Entirely submitted in block B1. ELEN Burden (ASCP) 06/28/2018 7:54 AM End of Report [facility] 06/25/2018 22:3 8 EDT 06/25/2018 22:38 EDT David Clemens MD PATHOLOGY ORDERABLES [facility] [address] [place] [address] documented in this encounter Visit Diagnoses Not on filedocumented in this encounter
--- OUTSIDE RECORDS SUMMARY | 2024-07-07 11:45 | XMS_ITS | Encounter Summary ---
Author Organization [facility] Address [address] [place] [address] Care Team Providers Care Garment Folder Name Role Phone Kenia Devine MD Primary Care Provide r Reason for Visit * Reason Onset Date Comments Follow-up 10/27/2022 Encounter Details Date Type Department Care Team (Late st Contact Info) Description 10/27/2022 Telephone [facility] Gastroenterology - [facility] [address] [place] [address] Najma Freeman, RN [address] [place] [address] Follow-up Social History Tobacco Use Types Packs/Day [...] Telephone Encounter - Najma Freeman RN - 10/27/2022 1622 EST Patient called regarding suggestions per Bhavana Lopez NP to 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 Per patient would like them mailed to him. 1700 Letter with recommendations by Bhavana Lopez NP sent to patient. Address confirmed by patient prior to sending. documented in this encounter Plan of Treatment Not on file documented as of this encounter Visit Diagnoses Not on filedocumented in this encounter Care Teams Garment Folder Relationship Specialty Start Date End Date Amorosa, Kenia Luli, MD [address] [place] [address] [place] [phone] PCP - General Family Medicine - Hospital Medicine 10/22/22 documented as of this encounter
--- OUTSIDE RECORDS SUMMARY | 2024-07-07 11:45 | XMS_ITS | Encounter Summary ---
Author Organization [facility] Address [address] [place] [address] Care Team Providers Care Barometers Calibrator Name Role Phone Kenia Devine MD Primary Care Provide r Encounter Details Date Type Department Care Team (Late st Contact Info) Description 10/30/2022 Lab Requisition [facility] Pathology & Laboratory Medicine - [address] [address] Tamir Pride MD [address] [place] [phone] Encounter for other general examination Social History [...] Date/Time Associated Diagnosis Comments SURGICAL PATHOLOGY Today 10/30/2022 8:32 EST documented in this encounter Results * SURGICAL PATHOLOGY (10/30/2022 8:32 EST) Note to Patient The following pathology results have been interpreted by your pathologist and may be available to you before your health provider has had the opportunity to review them. Please allow time for your provider to receive these results and explore management options, if applicable. 11/04/2022 10:55 [facility] Final Diagnosis A. GALLBLADDER, CHOLECYSTECTOMY: - Chronic cholecystitis with cholelithiasis 11/04/2022 10:55 [facility] Attestation There was significant resident/fellow involvement in the diagnostic evaluation of this case. By the signature below, the attending physician certifies that they have personally conducted a gross and/or microscopic examination of the described specimens and rendered or confirmed the above diagnosis. 11/04/2022 10:55 [facility] at 1055 Clinical History Cholelithiasis 11/04/2022 10:55 [facility] Gross Description A. Received in formalin labelled with proper patient identification (initials D, B) and gallbladder is a previously incised gallbladder with an attached segment of cystic duct (6.3 x 2.2 x 1.3 cm). A perforation is on the panic side measuring 1.4 cm. A cystic duct lymph node is not present. The serosa is smooth lewis-brown. The mucosa is green-brown and velvety and the wall ranges from 0.2 to 0.6 cm in thickness. The cystic duct lumen is patent and measures 0.3 cm in diameter. The cystic duct margin is inked blue. There is 1 green bosselated cholelith measuring 0.3 cm in greatest dimension. Two truck sales representative sections and the en face cystic duct margin are submitted in A1. Adriane Carranza MD 10/31/2022 15:28 11/04/2022 10:55 [facility] Resident/Abhijeet w: Adriane Carranza MD 11/04/2022 10:55 [facility] Performing Lab [facility] 11/04/2022 10:55 [facility] Scanned Images 11/04/2022 10:55 [facility] Tissue ENTIRE GALLBLADDER / Unknown 10/30/2022 8:32 EST 10/31/2022 7:42 EST Tamir Pride MD PATHOLOGY ORDERA BLES [facility] [address] [place] [address] documented in this encounter Visit Diagnoses Diagnosis Encounter for other general examination documented in this encounter Care Teams Barometers Calibrator Relationship Specialty Start Date End Date Kenia Devine MD [address] [place] [address] [place] [phone] PCP - General Family Medicine - Hospital Medicine 10/22/22 documented as of this encounter
--- OUTSIDE RECORDS SUMMARY | 2024-07-07 11:45 | XMS_ITS | Encounter Summary ---
Author Organization [facility] Address [address] [place] [address] Care Team Providers Care Roustabout Crew Leader Name Role Phone Kenia Devine MD Primary Care Provide r Reason for Visit * Reason Onset Date Comments Follow-up 10/28/2022 Encounter Details Date Type Department Care Team (Late st Contact Info) Description 10/28/2022 Telephone [facility] Gastroenterology - [facility] [address] [place], [place] [phone] Najma Freeman, RN [address] [place] [address] Follow-up Social History Tobacco Use Types Packs/Day [...] Encounter - Najma Freeman, ISREAL - 10/28/2022 2119 EST Patient called to confirm medication sent to preferred pharmacy, [facility] no [facility] there, prescription resent to [facility] in [place] . documented in this encounter Plan of Treatment Not on file documented as of this encounter Visit Diagnoses Not on filedocumented in this encounter Care Teams Roustabout Crew Leader Relationship Specialty Start Date End Date Kenia Devine MD [address] [place] [phone] PCP - General Family Medicine - Hospital Medicine 10/22/22 documented as of this encounter
--- OUTSIDE RECORDS SUMMARY | 2024-07-07 11:45 | XMS_ITS | Encounter Summary ---
Author Organization [facility] Address [address] [place] [address] Care Team Providers Care Aws Software Development Engineer Name Role Phone Unavailable Primary Care Provider Unavailabl e Encounter Details Date Type Department Care Team (Late st Contact Info) Description 02/02/2015 Results Only [facility] Laboratory Services - [facility] ([facility] [address] [place] [address] David Clemens MD [address] [place] [phone] Social History Tobacco Use Types [...] Date/Time Associated Diagnosis Comments SURGICAL PATHOLOGY Routine 02/02/2015 6:59 EDT documented in this encounter Results * SURGICAL PATHOLOGY (02/02/2015 6:59 EDT) Pathology Report: SURGICAL PATHOLOGY REPORT Reports generated via electronic interface contain original data; however they are lacking the format of the original report. Caution should be taken when reading/interpret ing unformatted reports. Name: ? EUGENIA GARCIA ? Accession #: ? [id number] ? : ? 1965 (Age: 49) ??M ? Collect Date: ? 02/02/2015 ? Location: ? [facility] ? Receive Date: ? 02/02/2015 ? Provider: DAVID CLEMENS MD Copy to: ORESTES COLEY MD ? Final Pathologic Diagnosis: RECTUM, POLYP, BIOPSY: - ??Hyperplastic polyp. Document reviewed and electronically signed by: LINDA ENCARNACION MD Report ??Date: 02/05/2015 16:04 By the signature above, the attending physician certifies that he/she has personally conducted a gross and/or microscopic examination of the described specimens and rendered or confirmed the above diagnosis. Specimen(s) Received: Rectal polyp Clinical History: Screen, rectal polyp Gross Description: ? Received in formalin labelled with proper patient identification (initials D, B) and rectal polyp bx is a single pink-lewis tissue fragment (0.3 x 0.3 x 0.2 cm). Submitted intact in 1. Linda Meza 02/05/2015 8:03 AM End of Report [facility] 02/02/2015 6:59 EDT 02/02/2015 6:59 EDT David Clemens MD PATHOLOGY ORDERABLES [facility] [address] [place] [address] documented in this encounter Visit Diagnoses Not on filedocumented in this encounter
--- OUTSIDE RECORDS SUMMARY | 2024-07-07 11:45 | XMS_ITS | Encounter Summary ---
Author Organization [facility] Address [address] [place] [address] Care Team Providers Care Parlor Maid Name Role Phone Unavailable Primary Care Provider Unavailabl e Reason for Visit * (Routine/Next Available) - Receiving Office to Obtain Authorization Specialty Diagnoses / Procedures Referred By Dasia phelps Referred To Contact Procedures MR OUTSIDE IMAGES BODY Unknown, Provider, Referral ID Status Reason Start Date Expiration Date Visits Requested Visits Authorized [id number] Receiving Office to Obtain Authorization 09/22/2022 1 1 Encounter Details Date Type Department Care Team (Latest Contact Info) Description 09/19/2022 - 09/19/2022 23:59 EDT Hospital Encounter [facility] Secondary Reads [place] Discharge Disposition: Home [...] HOURS NEEDED FOR NAUSEA AND VOMITING 09/18/2022 escitalopram oxalate (LEXAPRO) 20 mg tablet Take 20 mg by mouth. 08/12/2022 11/10/2022 risperiDONE (RISPERDAL) 1 mg tablet Take 1 mg by mouth. 08/12/2022 11/10/20 22 documented as of this encounter Discharge Disposition Disposition Code Departure Means Destination Home or Self Care documented in this encounter Plan of Treatment Not on file documented as of this encounter Procedures Procedure Name Priority Date/Time Associated Diagnosis Comments MR OUTSIDE IMAGES BODY Routine 09/19/2022 10:53 EDT documented in this encounter Results * MR OUTSIDE IMAGES BODY (09/19/2022 10:53 EDT) Narrative 09/22/2022 10:54 EST This is a non-reportable exam. Provider Unknown MD GOETZ OTHER IMAGING OR DERABLES documented in this encounter Visit Diagnoses Not on filedocumented in this encounter
--- OUTSIDE RECORDS SUMMARY | 2024-07-07 11:45 | XMS_ITS | Encounter Summary ---
Author Organization [facility] Address [address] [place] [address] Care Team Providers Care Disk Sharpener Name Role Phone Kenia Devine MD Primary Care Provide r Encounter Details Date Type Department Care Team (Late st Contact Info) Description 10/28/2022 Orders Only [facility] Gastroenterology - [facility] [address] [place] [address] Najma Freeman, RN [address] [place] [address] Social History Tobacco Use Types Packs/Day Years [...] Take 1 Tablet by mouth at bedtime. 30 Tablet 2 10/28/2022 01/26/2023 amitriptyline (ELAVIL) 50 mg tablet Take 1 Tablet by mouth at bedtime. 30 Tablet 2 10/28/2022 10/28/2022 documented in this encounter Progress Notes * Najma Freeman RN - 10/28/2022 1302 EST Patient called to let him know that letter with recommendations from Bhavana sent in mail. Prescription sent to [facility]. documented in this encounter Plan of Treatment Not on file documented as of this encounter Visit Diagnoses Not on filedocumented in this encounter Discontinued Medications Medication Sig Discontinue Reason Start Date End Da te amitriptyline (ELAVIL) 50 mg tablet Take 1 Tablet by mouth at bedtime. 10/28/2022 10/28/2022 documented as of this encounter Care Teams Disk Sharpener Relationship Specialty Start Date End Date Kenia Devine MD [address] [place] [address] [place] [phone] PCP - General Family Medicine - Hospital Medicine 10/22/22 documented as of this encounter
[2024-07-07] MEDS: Lactated Ringers 1,000 ML 100 ML IV ×2 (12:00→22:30)
[2024-07-07] MEDS: ceFAZolin 1 GM/50 ML BAG IVPB (15:10)
[2024-07-07] MEDS: Ketorolac 15 MG/ML VIAL IVP (15:10)
[2024-07-07] MEDS: Normal Saline Flush 10 ML SYR IVP (15:10)
--- NOTE | 2024-07-07 15:27 | PHA.REVIEW2 ---
Pharmacy Admission Review Admission Clinical Review Admission Pharmacy Review: Lower urinary tract symptoms (LUTS) (Acute) peanut Allergy (Severe, Verified 07/07/24 06:59) Anaphylaxis tree nut Allergy (Severe, Verified 07/07/24 06:59) Anaphylaxis acetaminophen (From Vicodin) Allergy (Verified 07/07/24 06:59) vomiting egg Allergy (Verified 07/07/24 06:59) Vomiting Fish Containing Products Allergy (Verified 07/07/24 06:59) vomiting house dust mite Allergy (Verified 07/07/24 06:59) unknown hydrochlorothiazide Allergy (Verified 07/07/24 06:59) laryngeal spasm hydrocodone (From Vicodin) Allergy (Verified 07/07/24 06:59) vomiting metoclopramide (From Reglan) Allergy (Verified 07/07/24 06:59) Hives mold Allergy (Verified 07/07/24 06:59) Unknown tadalafil Allergy (Verified 07/07/24 06:59) muscle aches Resuscitation Status Full Code Height 5 ft 10 in Weight 127.5 kg Comments Comments/Follow Ups: POD#0 transurethral resection of prostate Pharmacy Admission Review Renal Dosing Medications needing adjustments: Reviewed (CrCl 133.3 mL/min) Anticoagulation DVT Prophylaxis: Reviewed (SCDs) Relevant Labs Electrolytes, C-Reactive P, ESR: Reviewed Cardiac Review BP, HR, EF%: Reviewed (BP and HR WNL) QTc Review QTc: Reviewed (466 from 06/27/22 - most recent EKG) IV to PO Switch IV Medications: Reviewed (cefazolin, ketorolac and ondansetron) Home Meds Home Med List reviewed: Reviewed Relevent Home Meds Not ordered & why?: Epipen (PRN) and ibuprofen (PRN) Current Meds Current Medication Order Review: Intervened Comments: Added IV admission order set Pharmacy Antibiotic Review Comments: Cefazolin post op Comments Comments/Follow Ups: POD#0 transurethral resection of prostate
[2024-07-07] MEDS: Mirtazapine 15 MG TAB 30 MG PO (19:04)
[2024-07-07] MEDS: Melatonin 3 MG TAB PO (19:04)
[2024-07-07] MEDS: Docusate Sodium 100 MG CAP PO (19:05)
[2024-07-07] MEDS: metFORMIN 500 MG TAB PO (19:05)
[2024-07-07] MEDS: Omeprazole 20 MG CAPCR 40 MG PO (19:05)
[2024-07-07] MEDS: risperiDONE 1 MG TAB PO (19:05)
[2024-07-07] MEDS: Amitriptyline 50 MG TAB 100 MG PO (19:05)
[2024-07-07] MEDS: Budesonide/Formoterol 80/4.5 6.9 GM 60 PUFF INH IH (20:38)
[2024-07-08] MEDS: ceFAZolin 1 GM/50 ML BAG IVPB ×2 (01:02→07:43)
[2024-07-08 06:45] LABS: Absolute Basophil Count 0.02 10^3/uL (0.0-0.2); Absolute Eosinophil Count 0.01 10^3/uL (0.0-0.7); Absolute Lymphocyte Count 1.03 10^3/uL (1.2-3.4); Absolute Monocyte Count 0.87 10^3/uL (0.1-0.8); Basophils % 0.2 %; Eosinophils % 0.1 %; HCT 32.6 % (40.0-50.0); HGB 10.7 g/dL (13.5-17.5); Immature Grans % 0.8 %; Lymphocytes % 8.4 %; MCH 27.9 pg (27.0-33.0); MCHC 32.8 % (32.0-36.0); MCV 85 fL (80-95); MPV 12.6 fL (8.0-11.0); Monocytes % 7.1 %; Neutrophils % 83.4 %; Platelet Count 165 10^3/uL (130-400); RBC 3.83 10^6/uL (4.36-5.78); RDW 13.6 % (11.8-14.1); RDW-SD 42.3 fL; WBC 12.31 10^3/uL (4.4-10.8)
[2024-07-08 06:50] LABS: Absolute Neutrophil Count 10.27 10^3/uL (1.2-6.7)
[2024-07-08 07:12] LABS: Anion Gap 8.4 mmol/L (3-11); BUN 21 mg/dL (7-18); CO2 26.6 mmol/L (21.0-32.0); CREATININE 1.3 mg/dL (0.70-1.30); Calcium 8.8 mg/dL (8.5-10.1); Chloride 104 mmol/L (98-107); Estimated GFR 63.28 (mL/min/1.73m2); Glucose 135 mg/dL (74-106); Potassium 4.1 mmol/L (3.5-5.1); Sodium 139 mmol/L (136-145)
--- NOTE | 2024-07-08 07:33 | PGE_ITS ---
Date of Service Date of service: 07/08/24 Time of Service: 07:33 Assessment and Plan Assessment and plan (1) Lower urinary tract symptoms (LUTS): Status: Acute Assessment and plan: We will discharge this gentleman to home with his catheter in place. We will see him next week for a voiding trial and in about 2 weeks to review his surgical pathology and his voiding symptoms. Subjective Subjective Interval history since last seen: He feels comfortable with no significant clots or clot retention overnight. He is able to tolerate oral nutrition and medications. He feels comfortable being discharged today. Exam Narrative Exam Narrative: He looks well His vital signs are documented elsewhere His bladder output is crystal-clear with continuous bladder irrigation His labs are appropriate He is awake and alert Objective Last Vital Signs Temp 36.5 C 07/07/24 19:36 Pulse 90 07/07/24 19:36 Resp 18 07/07/24 19:36 BP 148/90 H 07/07/24 19:36 Pulse Ox 93 07/07/24 19:36 Laboratory Results - last 24 hr 07/08/24 06:20 WBC 12.31 H RBC 3.83 L Hgb 10.7 L Hct 32.6 L MCV 85 MCH 27.9 MCHC 32.8 RDW 13.6 Plt Count 165 MPV 12.6 H Immature Gran % 0.8 Neutrophils % 83.4 Lymphocytes % 8.4 Monocytes % 7.1 Eosinophils % 0.1 Basophils % 0.2 Nucleated RBC % 0.0 Absolute Neutrophils 10.27 H Absolute Lymphocytes 1.03 L Absolute Monocytes 0.87 H Absolute Eosinophils 0.01 Absolute Basophils 0.02 Sodium 139 Potassium 4.1 Chloride 104 Carbon Dioxide 26.6 Anion Gap 8.4 BUN 21 H Creatinine 1.3 Est GFR (CKD-EPI 2020) 63.28 Glucose 135 H Calcium 8.8 Time Spent with Patient Time Spent with Patient: <25 minutes Time was spent: preparing to see the patient(eg.review tests), referring, communicating with other health out of school hours care worker and counseling the patient
--- NOTE | 2024-07-08 07:36 | W.PM.DS.N ---
Date of service: 07/08/24 Time of Service: 07:38 DS: Diagnosis Discharge Diagnosis (1) Lower urinary tract symptoms (LUTS): Status: Acute Discharge Plan Disposition Patient Disposition: Home Condition: Improving Discharge Details Reason For Visit: Bladder Outlet Obstruction Admit Date/Time: 07/07/24 11:36 Admit Provider: Thomas Dodd Attending Provider: Thomas Dodd Primary Care Provider: CHARLES NOEL Hospital Course Hospital Course: The patient was admitted and taken to the operating room on 07/07/2024. He underwent a transurethral resection of the prostate under general anesthetic. The surgery itself was rather uneventful. He was maintained on continuous bladder irrigation overnight. He did not develop any episodes of clot retention. He was able to tolerate oral nutrition and medications. His continuous bladder irrigation and his IV fluids were discontinued. His lab work on postoperative day #1 was appropriate. He is felt to be ready for discharge on postoperative day #1. Home Meds and New Rx's Prescriptions: No Action prochlorperazine maleate 10 mg tablet 10 mg PO DAILY PRN baclofen 10 mg tablet 10 mg PO TID PRN diclofenac sodium [Arthritis Pain (diclofenac)] 1 % gel 2 g topical QID PRN Rx Instructions: apply to single elbow, wrist or hand; for hand includes palm/fingers/back of hand loratadine [Claritin] 10 mg tablet 10 mg PO DAILY cyclobenzaprine 10 mg tablet 10 mg PO TID PRN epinephrine [EpiPen] 0.3 mg/0.3 mL auto-injector 0.3 mg IM DIRECTED Rx Instructions: as a single dose; may repeat once escitalopram oxalate [Lexapro] 20 mg tablet 20 mg PO DAILY melatonin 3 mg capsule 3 mg PO HS PRN mirtazapine 30 mg tablet 30 mg PO DAILY omeprazole 40 mg capsule,delayed release(DR/EC) 40 mg PO DAILY albuterol sulfate [ProAir HFA] 90 mcg/actuation HFA aerosol inhaler 2 puff inhalation Q4H PRN risperidone 1 mg tablet 1 mg PO DAILY budesonide-formoterol [Symbicort] 80-4.5 mcg/actuation HFA aerosol inhaler 2 puff inhalation BID amitriptyline 100 mg tablet 100 mg PO DAILY lorazepam [Ativan] 1 mg tablet 1 mg PO DAILY PRN haloperidol 2 mg tablet 2 mg PO Q6H PRN lisinopril 10 mg tablet 10 mg PO DAILY metformin 500 mg tablet 500 mg PO BID ibuprofen 800 mg Tablet 800 mg PO PRN PRN metoprolol succinate 50 mg tablet extended release 24 hr 50 mg PO DAILY Patient Comments: TAKE ONE TABLET BY MOUTH EVERY DAY Discharge Instructions Additional Instructions: Catheter plug to the irrigation port Drainage port of the catheter to either a large drainage bag or a leg bag (patient choice) Follow-up next week for catheter removal Follow-up appointment with me in 1 to 2 weeks to review his pathology results May use ibuprofen and Tylenol as needed for discomfort No lifting over 10 pounds until follow-up visit Okay to shower with the catheter in place Activity:: No lifting over 10 pounds Equipment/Supplies:: [place] to gravity drainage Diet:: As Tolerated Discharge Orders Discharge Orders: Discharge Order (Routine); Ordered 07/08/24 Ordered By: Thomas Dodd DS: Summary Time Spent with Patient providing and/or coordinating discharge services: Less than 30 minutes Status at Discharge Functional status at discharge: independent ambulation Overall status at discharge: patient is progressing back to baseline Mental Status: mental status grossly normal Speech and Movement: speech and movement normal Mood: congruent mood Affect: normal affect Quality:SDOH Health Related Social Needs: No Data to Display Exam Narrative Exam Narrative: On the morning of discharge, the patient appears comfortable His vital signs are documented elsewhere in the EMR His chest wall motion is normal. He does not appear short of breath at rest. Cardiac exam shows a regular rate and rhythm His abdomen is soft with no guarding or rebound tenderness His Townsend catheter is draining clear CBI fluid He is awake and alert Psych Mental Status: mental status grossly normal Speech and Movement: speech and movement normal Mood: congruent mood Affect: normal affect DS: Data Vitals/I&O Vitals and I&O: Vital Signs Temperature 36.5 C 07/07/24 19:36 Temperature Source Tympanic 07/07/24 19:36 Pulse 90 07/07/24 19:36 Pulse Rhythm Regular 07/07/24 20:59 Pulse 70 07/07/24 11:21 Respiratory Rate 18 07/07/24 19:36 Respiratory Effort Normal, Non-Labored 07/07/24 20:59 Respiratory Depth Normal 07/07/24 20:59 Respiratory Pattern Normal 07/07/24 20:59 Blood Pressure 148/90 H 07/07/24 19:36 Blood Pressure Mean 89 07/07/24 11:20 Pulse Oximetry 93 07/07/24 19:36 Respiratory End-tidal CO2 43 07/07/24 11:21 Oxygen Delivery Method Room Air 07/07/24 19:36 Oxygen Flow Rate 0 07/07/24 19:36 Pain Level 0 07/07/24 19:36 Intake & Output 07/07/24 07/07/24 07/08/24 11:59 23:59 11:59 Intake Total 850 / 2454.667 1604.667 / 2454.667 50 / 50 Output Total 350 / 350 Balance 500 / 2104.667 1604.667 / 2104.667 50 / 50 Weight 127.5 kg Intake: IV 850 / 7586.827 1895.667 / 1954.667 50 / 50 Oral 500 / 500 Output: Estimated Blood Loss 350 / 350 Other: Urine Color [place] Light Patty Moreira Urine Appearance Clear Hematuria Hematuria Comment flowing well no clotts. in [place]. 2nd time tonight. cannister emptied. Emesis Description None Data Completed and Pending Labs on day of discharge: Labs from last 24 hours 07/08/24 06:20 WBC 12.31 H RBC 3.83 L Hgb 10.7 L Hct 32.6 L MCV 85 MCH 27.9 MCHC 32.8 RDW 13.6 Plt Count 165 MPV 12.6 H Immature Gran % 0.8 Neutrophils % 83.4 Lymphocytes % 8.4 Monocytes % 7.1 Eosinophils % 0.1 Basophils % 0.2 Nucleated RBC % 0.0 Absolute Neutrophils 10.27 H Absolute Lymphocytes 1.03 L Absolute Monocytes 0.87 H Absolute Eosinophils 0.01 Absolute Basophils 0.02 Sodium 139 Potassium 4.1 Chloride 104 Carbon Dioxide 26.6 Anion Gap 8.4 BUN 21 H Creatinine 1.3 Est GFR (CKD-EPI 2020) 63.28 Glucose 135 H Calcium 8.8 PFSH All Active Problems (Updated 07/07/24 @ 08:37 by Thomas Dodd MD) Lower urinary tract symptoms (LUTS) (Acute) Meralgia paresthetica of both lower extremities (Acute) Lumbosacral spondylosis without myelopathy (Acute) Cyclical vomiting (Acute) Tinnitus, bilateral (Acute) Sensorineural hearing loss (SNHL) of both ears (Acute) Sensation of fullness in right ear (Acute) Medical History (Updated 07/07/24 @ 08:37 by Thomas Dodd MD) Thymus cancer Incontinence Incomplete bladder emptying Otitis externa of right ear Jaw pain Suicidal thoughts Peanut-induced anaphylaxis Dysuria Nausea and vomiting Chest pain Per pt. states he had it worked up and nothing came of it Tremor Unilateral inguinal hernia Pyloric stenosis GERD (gastroesophageal reflux disease) Mild intermittent asthma Allergic rhinitis Hypertensive disorder CARLOS (obstructive sleep apnea) Insomnia Adult ADHD Severe recurrent major depression without psychotic features Obesity Temporomandibular joint disorder Surgical History (Updated 07/08/24 @ 07:39 by Thomas Dodd MD) S/P TURP H/O thymectomy History of cholecystectomy History of hand surgery H/O endoscopy 06/10/2019 upper gastrointestinal endoscopy w/ dilation of gastric outlet for obstruction History of esophagogastroduodenoscopy (EGD) 05/12/2019 hiatal hernia H/O colonoscopy H/O hernia repair History of hydrocelectomy Family History Father Depressive disorder Arteriosclerotic cardiovascular disease (ASCVD) Social History Smoking/Tobacco Use Status: Never Smoking risk assessment performed?: Yes Alcohol Intake: former Drug use: Never Substance use type: does not use Housing: house Communication Needs: Corrective Lenses 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
[2024-07-08] MEDS: metFORMIN 500 MG TAB PO (07:44)
[2024-07-08] MEDS: Loratidine 10 MG TAB PO (07:44)
[2024-07-08] MEDS: Metoprolol CR 50 MG TABCR PO (07:44)
[2024-07-08] MEDS: Lisinopril 10 MG TAB PO (07:44)
[2024-07-08] MEDS: Docusate Sodium 100 MG CAP PO (07:44)
[2024-07-08] MEDS: Escitalopram 20 MG TAB PO (07:44)
[2024-07-08 07:52] VITALS: BP 122/82; PULSE 96; RESP 15; TEMP 36.9; O2SAT 97
[2024-07-08] MEDS: Budesonide/Formoterol 80/4.5 6.9 GM 60 PUFF INH IH (08:43)
--- NOTE | 2024-07-08 09:19 | PDOC.CMDIS ---
Date of service: 07/08/24 Time of Service: 09:19 LACE Index Scoring Tool Questions: Length of Stay (in days): 1 Was the patient admitted via the E.D.?: No E.D. Visits: 0 Answers: Total Score: 1 Risk of Readmission: Low Risk Care Management Discharge Plan Reason for Hospitalization: Lower urinary tract symptoms (LUTS) Discharge Plan: Joe is discharged home via private vehicle. He will follow up with community providers and his discharge plan of care as instructed. Urology follow up on 07/11/24, as scheduled. No new services are ordered prior to discharge. Patient/Family Education Needs: Review discharge instructions, limitations, medications and plan to follow up with community providers. Discuss ask me three. SDOH Health Related Social Needs: No Data to Display
== END 2024-07-08 10:10 | disposition home or self-care (01) ==
PROVIDERS: Admitting Provider Urology; PCP Family Medicine; Visit Provider Urology
PROC: 0VT08ZZ Resection of Prostate, Via Natural or Artificial Opening Endoscopic (ICD-10-PCS; CPT 52601; principal; 2024-07-07 08:15)
DX: N40.1 Benign prostatic hyperplasia with lower urinary tract symptoms (principal); N13.8 Other obstructive and reflux uropathy; G57.13 Meralgia paresthetica, bilateral lower limbs; M47.817 Spondylosis without myelopathy or radiculopathy, lumbosacral region; H90.3 Sensorineural hearing loss, bilateral; K22.2 Esophageal obstruction; J45.20 Mild intermittent asthma, uncomplicated; I10 Essential (primary) hypertension; G47.33 Obstructive sleep apnea (adult) (pediatric); G47.00 Insomnia, unspecified; E66.9 Obesity, unspecified; Z68.41 Body mass index [BMI] 40.0-44.9, adult; C61 Malignant neoplasm of prostate
CPT/HCPCS: 52601; 36415; 80048; 88305; 94640; 96361; 96365; 96366; 96375; 85025; 88361; 94664; G0378; J0690; J1100; J1885; J2001; J2371; J2405; J2704

== ENCOUNTER 2024-10-14 13:02 | Outpatient (CLI) | payer BC, SELFPAY ==
--- OUTSIDE RECORDS SUMMARY | 2024-10-14 13:08 | XMS_ITS | Continuity of Care Document ---
Author Organization [facility] Address [address] [place] [address] Support Name Relationship Address Phone DAVIO, EUGENIA Personal Relationship Unknown Unav ailable DAVIO, EUGENIA Personal Relationship Unknown Unav ailable DAVIO, EUGENIA Personal Relationship Unknown Unav ailable DAVIO, EUGENIA Personal Relationship Unknown Unav ailable DAVIO, EUGENIA Personal Relationship Unknown Unav ailable DAVIO, EUGENIA Personal Relationship Unknown Unav ailable DAVIO, EUGENIA Personal Relationship Unknown Unav ailable DAVIO, EUGENIA Personal Relationship Unknown Unav ailable DAVIO, EUGENIA Personal Relationship Unknown Unav ailable DAVIO, EUGENIA Personal Relationship Unknown Unav ailable DAVIO, EUGENIA Personal Relationship Unknown Unav ailable DAVIO, EUGENIA Personal Relationship Unknown Unav ailable FAMILIA, RICH A Personal Relationship Unknown Un available DAVIO, EUGENIA Personal Relationship Unknown Unav ailable DAVIO, EUGENIA Personal Relationship Unknown Unav ailable DAVIO, EUGENIA Personal Relationship Unknown Unav ailable DAVIO, EUGENIA Personal Relationship Unknown Unav ailable DAVIO, EUGENIA Personal Relationship Unknown Unav ailable DAVIO, EUGENIA Personal Relationship Unknown Unav ailable DAVIO, EUGENIA Personal Relationship Unknown Unav ailable DAVIO, EUGENIA Personal Relationship Unknown Unav ailable DAVIO, EUGENIA Personal Relationship Unknown Unav ailable DAVIO, EUGENIA Personal Relationship Unknown Unav ailable DAVIO, EUGENIA Personal Relationship Unknown Unav ailable DAVIO, EUGENIA Personal Relationship Unknown Unav ailable DAVIO, EUGENIA Personal Relationship Unknown Unav ailable DAVIO, EUGENIA Personal Relationship Unknown Unav ailable DAVIO, EUGENIA Personal Relationship Unknown Unav ailable DAVIO, EUGENIA Personal Relationship Unknown Unav ailable DAVIO, EUGENIA Personal Relationship Unknown Unav ailable DAVIO, EUGENIA Personal Relationship Unknown Unav ailable DAVIO, EUGENIA Personal Relationship Unknown Unav ailable DAVIO, EUGENIA Personal Relationship Unknown Unav ailable DAVIO, EUGENIA Personal Relationship Unknown Unav ailable DAVIO, EUGENIA Personal Relationship Unknown Unav ailable DAVIO, EUGENIA Personal Relationship Unknown Unav ailable DAVIO, EUGENIA Personal Relationship Unknown Unav ailable DAVIO, EUGENIA Personal Relationship Unknown Unav ailable DAVIO, EUGENIA Personal Relationship Unknown Unav ailable DAVIO, EUGENIA Personal Relationship Unknown Unav ailable DAVIO, EUGENIA Personal Relationship Unknown Unav ailable DAVIO, EUGENIA Personal Relationship Unknown Unav ailable DAVIO, EUGENIA Personal Relationship Unknown Unav ailable DAVIO, EUGENIA Personal Relationship Unknown Unav ailable FAMILIA, JANET Personal Relationship Unknown Unavai lable DAVIO, EUGENIA Personal Relationship Unknown Unav ailable FAMILIA, RICH A Personal Relationship Unknown Un available DAVIO, EUGENIA Personal Relationship Unknown Unav ailable DAVIO, EUGENIA Personal Relationship Unknown Unav ailable FAMILIA, SALO Personal Relationship Unknown Unav ailable DAVIO, EUGENIA Personal Relationship Unknown Unav ailable DAVIO, EUGENIA Personal Relationship Unknown Unav ailable DAVIO, EUGENIA Personal Relationship Unknown Unav ailable DAVIO, EUGENIA Personal Relationship Unknown Unav ailable Care Team Providers Care Clinic Cma Name Role Phone Kenia Devine Primary Care Physician [phone] Encounter [facility] Date(s): 08/10/24 - 08/10/[address] [id number] Discharge Disposition: Home Allergies, Adverse Reactions, Alerts Substance Criticality Severity Reaction Reaction Severity Status HOUSE DUST MITE Unable to assess criticality Unknown Active MOLD Unable to assess criticality Unknown Active EGG Unable to assess criticality Unknown Vomiting Active FISH CONTAINING PRODUCTS Unable to asses s criticality Unknown Vomiting Active TREE NUT Unable to assess criticality Unknown Anaphylactic reaction Active metoclopramide Unable to assess criticality Unknown Urticaria Active acetaminophen-hydrocodon e Unable to assess criticality Unknown Vomiting Active hydroCHLOROthiazide 1 Unable to assess criticality Unknown Active PEANUT 2 High criticality Severe Anaphylaxis A ctive 1laryngeal spasm 2fatal(deprecated) Assessment and Plan Future [...] 4 hr, PRN NEEDED, # 8.5 g, 6 Refill(s), Pharmacy: [facility], 178, cm, 05/04/24 8:35:00 EDT, Height, 120.66, kg, 05/17/24 11:11:00 EDT, Weight Dosing Start Date: 07/15/24 Status: Ordered albuterol 2.5 mg/3 mL (0.083%) inhalation solution 2.5 mg = 3 mL, Nebulized Inhalation, every 6 hr, PRN as needed for wheezing, DX: Asthma (J45.20), #90 mL, 3 Refill(s), Pharmacy: [facility], 178, cm, 05/04/24 8:35:00 EDT, Height, 120.66, kg, 05/17/24 11:11:00 EDT, Weight Dosing Start Date: 06/24/24 Status: Ordered alfuzosin 10 mg oral tablet, extended release 10 mg = 1 tab, Oral, Daily, # 90 tab, 3 Refill(s), Pharmacy: [facility], 178.5, cm, 10/07/23 14:51:00 EST, Height, 116.95, kg, 11/04/23 14:29:00 EST, Weight Dosing Start Date: 11/25/23 Stop Date: 11/19/24 Status: Ordered amitriptyline 100 mg oral tablet 100 mg = 1 tab, Oral, every day at bedtime, # 90 tab, 2 Refill(s), Pharmacy: [facility], 178, cm, 05/04/24 8:35:00 EDT, Height, 120.66, kg, 05/17/24 11:11:00 EDT, Weight Dosing Start Date: 06/26/24 Status: Ordered Ativan 1 mg oral tablet 1 mg = 1 tab, Oral, Daily, PRN nausea/vomiting, Use as needed during cyclical vomiting episodes, 1 mg tab every 4 hrs PRN until resolved, # 30 tab, 0 Refill(s), Pharmacy: [facility], 178, cm, 05/03/23 10:32:00 EDT, Height/Length Dosing, 125.7, kg, 05/03/23 10:32:00 EDT, Weight Dosing Start Date: 07/21/23 Status: Ordered capsaicin 0.025% topical cream 1 barrera, Topical, TID, PRN other (see comment), APPLY TO THE AFFECTED AREA(S) NEEDED Start Date: 07/19/22 Status: Ordered cyclobenzaprine 10 mg oral tablet 1 tab, Oral, Daily, # 30 tab, 3 Refill(s), Pharmacy: [facility], 178, cm, 05/04/24 8:35:00 EDT, Height, 120.66, kg, 05/17/24 11:11:00 EDT, Weight Dosing Start Date: 07/07/24 Status: Ordered EPINEPHrine 0.3 mg injectable kit See Instructions, INJECT INTRAMUSCULARLY ONCE, # 2 mL, 0 Refill(s), Pharmacy: [facility],178, cm, 12/30/23 15:35:00 EST, Height, 155.62, kg, 12/30/23 15:38:00 EST, Weight Dosing Start Date: 01/13/24 Status: Ordered escitalopram 20 mg oral tablet 20 mg = 1 tab, Oral, every morning, # 30 tab, 3 Refill(s), Pharmacy: [facility], 178, cm,12/30/23 15:35:00 EST, Height, 121, kg, 03/30/24 8:26:00 EDT, Weight Dosing Start Date: 03/30/24 Stop Date: 07/28/24 Status: Ordered haloperidol 2 mg oral tablet 2 mg = 1 tab, Oral, every 6 hr, PRN nausea/vomiting, # 60 tab, 5 Refill(s), Pharmacy: [facility], 178, cm, 05/04/24 8:35:00 EDT, Height, 120.66, kg, 05/17/24 11:11:00 EDT, Weight Dosing Start Date: 05/20/24 Status: Ordered ibuprofen 800 mg oral tablet 800 mg = 1 tab, Oral, every 8 hr, PRN other (see comment), as needed Start Date: 05/01/22 Status: Ordered lisinopril 10 mg oral tablet 1 tab, Oral, Daily, # 90 tab, 3 Refill(s), Pharmacy: [facility], 178, cm, 05/04/24 8:35:00 EDT, Height, 120.66, kg, 05/17/24 11:11:00 EDT, Weight Dosing Start Date: 06/13/24 Status: Ordered melatonin 3 mg oral tablet 9 mg = 3 tab, Oral, every day at bedtime Start Date: 07/19/22 Status: Ordered metFORMIN 500 mg oral tablet 1 tab, Oral, BID w/Meals, # 90 tab, 1 Refill(s), Pharmacy: [facility], 178, cm, 05/04/24 8:35:00 EDT, Height, 120.66, kg, 05/17/24 11:11:00 EDT, Weight Dosing Start Date: 06/13/24 Status: Ordered Metoprolol Succinate ER 50 mg oral tablet, extended release 1 tab, Oral, Daily, # 90 tab, 3 Refill(s), Pharmacy: [facility], 177, cm, 08/01/23 8:37:00 EDT, Height/Length Dosing, 129, kg, 08/01/23 8:37:00 EDT, Weight Dosing Start Date: 08/23/23 Status: Ordered mirtazapine 30 mg oral tablet 30 mg = 1 tab, Oral, every night at bedtime, # 30 tab, 3 Refill(s), Pharmacy: [facility],178, cm, 12/30/23 15:35:00 EST, Height, 121, kg, 03/30/24 8:26:00 EDT, Weight Dosing Start Date: 03/30/24 Stop Date: 07/28/24 Status: Ordered Nebuliser machine Nebuliser machine, Nebulizer machine with Mask and Tubing, Supply, See instructions, # 1 EA, 0 Refill(s) Start Date: 06/24/24 Status: Ordered omeprazole 40 mg oral delayed release capsule 1 cap, Oral, Daily, # 90 cap, 3 Refill(s), Pharmacy: [facility], 178, cm, 12/30/23 15:35:00 EST, Height, 116.75, kg, 02/03/24 12:42:00 EDT, Weight Dosing Start Date: 02/16/24 Status: Ordered pregabalin 75 mg oral capsule 75 mg = 1 cap, Oral, BID, # 60 cap, 0 Refill(s), Pharmacy: [facility], 178, cm, 05/04/24 8:35:00 EDT, Height, 130.95, kg, 08/09/24 13:51:00 EDT, Weight Dosing Start Date: 08/10/24 Status: Ordered prochlorperazine 10 mg oral tablet 10 mg = 1 tab, Oral, QID, PRN nausea, # 20 tab, 0 Refill(s), Pharmacy: [facility], 178, cm, 05/04/24 8:35:00 EDT, Height, 120.66, kg, 05/17/24 11:11:00 EDT, Weight Dosing Start Date: 05/31/24 Status: Ordered risperiDONE 1 mg oral tablet 1.5 mg = 1.5 tab, Oral, every night at bedtime, # 45 tab, 0 Refill(s), Pharmacy: [facility], 178, cm, 05/04/24 8:35:00 EDT, Height, 120.66, kg, 05/17/24 11:11:00 EDT, Weight Dosing Start Date: 08/01/24 Stop Date: 08/31/24 Status: Ordered Symbicort 80 mcg-4.5 mcg/inh inhalation aerosol 2 puffs, Inhale, BID, # 10.2 g, 5 Refill(s), Pharmacy: [facility], 177.8, cm, 09/22/22 6:14:00 EST, Height/Length [...] hernia Confirmed 2003 Active Insomnia Confirmed Active Lumbar radiculopathy, right Confirmed Active Prostate cancer Confirmed Active Mediastinal mass Confirmed Active Mild [...] Procedure Date Related Diagnosis Body Site Status TURP - Redo transurethral re section of prostate 07/06/24 Completed Laparoscopic cholecystectomy 1 10/29/22 Completed Colonoscopy 2 [...] tobacco user;Never entered on: 05/04/24 Sex Male Sex Representation Male (finding) Patient Care team information Care Team Personnel Name: Kenia Devine MD Position: Physician Member Role: Informed Provider Address: [address] [place] [address] Name: Veronique Rowan MACHINE BUFFER Position: No Access Member Role: Nurse Practitioner Address: [address] Name: Irma Monteiro MACHINE BUFFER Position: Physician Member Role: Nurse Practitioner Address: [address] [place] [address] Care Team Related Persons Name: SALO BARBOSA Name: JANET BARBOSA Insurance Providers Guarantor name: EUGENIA KNOWLES Health Plan Information #: 1 Payer: [employer] Member Number: NA Policy Number: NA Health Plan Information #: 2 Payer: [employer] Member Number: NA Policy Number: NA
--- OUTSIDE RECORDS SUMMARY | 2024-10-14 13:09 | XMS_ITS | Encounter Summary ---
Author Organization [facility] Address [facility] [place] [address] Care Team Providers Care Carrier Packer Name Role Phone Kenia Devine MD Primary Care Provider [phone] Reason for Referral * Diagnostic Test (Routine) - New Request Specialty Diagnoses / Procedures Referred By aDsia phelps Referred To Contact Radiology Diagnoses Thymoma S/P thymectomy Procedures CT Chest w Contrast Chace Enriquez MD [facility] [place] [address] [facility] [place] [address] Referral ID Status Reason Start Date Expiration Date Visits Requested Visits Authorized [id number] New Request Specialty Service Requested 05/27/2024 11/26/2025 1 1 Reason for Visit * Reason Comments Follow-up Encounter Details Date Type Department Care Team (Late st Contact Info) Description 05/26/2024 1:15 PM EDT Office [place] [address] Chace Enriquez MD [facility] [place] [address] Thymoma; S/P thymectomy Social History Tobacco Use Types Packs/Day Years Used Date Smoking Tobacco: Never Smokeless Tobacco: Never Alcohol Use Standard Drinks/Week Comments Not Currently 0 (1 standard drink = 0.6 oz pur e alcohol) [facility] Inpatient Questions Answer Date Recorded Does [...] Attending Outpatient Consultation Note Chace Enriquez MD [place], [place] [address] FAX: Today I saw Mr. Joe Garcia [...] discussed the consensus recommendations of our multidisciplinary [facility] thoracic oncology tumor board for standard surveillance. I reviewed with him the recommended follow-up imaging planof a Chest CT with contrast for which he will return to see me in 6 months. He knows to call my office in the interim if questions or concerns arise. Chace Enriquez MD 05/26/24 documented in this encounter Plan of Treatment Upcoming Encounters Date Type Department Care Team (Late st Contact Info) Description 11/04/2024 1:00 PM EST Office Visit [place] [id number] Pauline Patino, STACY [facility] [place] [address] Scheduled Orders Name Type Priority Associated Diagnoses Orde r Schedule CT Chest w Contrast Imaging Routine Thymoma S/P thymectomy Expected: 11/26/2024, Expires: 05/26/2025 Creatinine Lab Routine Thymoma S/P thymectomy Expected: 11/26/2024, Expires: 05/26/2025 documented as of this encounter Visit Diagnoses Diagnosis Thymoma Benign neoplasm of thymus S/P thymectomy documented in this encounter Care Teams Carrier Packer Relationship Specialty Start Date End Date Kenia Devine MD [address] [place] [address] [place] [address] PCP - General Family Medicine 06/02/22 08/28/24 documented as of this encounter
--- OUTSIDE RECORDS SUMMARY | 2024-10-14 13:09 | XMS_ITS | Clinical Summary ---
Author Organization [facility] Address [facility] [place] [address] Care Team Providers Care Phd Internship Name Role Phone Kenia Devine MD Primary Care Provider [phone] Allergies Active Allergy Reactions Criticality Noted Date [...] Dispensed Refills Start Date End Date Status EPINEPHrine (ADRENALIN) 0.1 mg/mL (1:10,000) Syringe Inject as directed as needed. Active melatonin 5 mg Tablet Take 10 mg by mouth nightly. Active budesonide-formoteroL (SYMBICORT) 80-4.5 mcg/actuation HFA Aerosol Inhaler Inhale into the lungs as needed. Active prochlorperazine (Compazine) 10 mg Tablet Take 10 mg by mouth as needed for Nausea. Active ondansetron (Zofran) 4 mg Tablet Take 4 mg by mouth as needed for Nausea. Active cyclobenzaprine (Flexeril) 10 mg Tablet as needed. 12/10/2021 Active ciprofloxacin-dexamet hasone (Ciprodex) 0.3-0.1 % Drops, Suspension INSTILL 4 DROPS INTO AFFECTED EAR(S) TWO TIMES A DAY FOR 7 DAYS 01/22/2022 Active albuteroL 90 mcg/actuation inhaler (HFA) Inhale 2 puffs into the lungs every 4 hours as needed for Wheezing. Use with Spacer Active alfuzosin (Uroxatral) 10 mg ER 24 hr tablet Take 1 tablet by mouth Daily at Noon. 08/20/2024 Active amitriptyline (Elavil) 100 mg tablet Take 100 mg by mouth nightly. Active omeprazole (PriLOSEC) [address] capsule Take 1 capsule by mouth Daily at Noon. 08/26/2024 Active mirtazapine (Remeron) 30 mg tablet Take 30 mg by mouth nightly. 09/05/2024 Active escitalopram (Lexapro) 20 mg tablet Take 20 mg by mouth every morning. 09/05/2024 Active haloperidoL (Haldol) 2 mg tablet take one tablet by mouth every 6 hours as needed for nausea and vomiting Active lisinopriL (Zestril) 10 mg tablet Take 10 mg by mouth daily. Active metFORMIN (Glucophage) 500 mg tablet Take 500 mg by mouth 2 times daily (with meals). Active metoprolol succinate XL (Toprol-XL) 50 mg ER 24 hr tablet Take 1 tablet by mouth Daily at Noon. 08/26/2024 Active Active Problems Problem Noted Date Diagnosed Date [...] Encounters Date Type Department Care Team Description 10/10/2024 1:00 PM EST Office Visit [facility] [place] [address] Sonia Lou, STACY Other spondylosis with radiculopathy, lumbar region 10/10/2024 Travel 08/29/2024 Transcribe Orders eDH Incoming Referrals [phone] Kenia Devine MD Radiculopathy of lumbar region 08/22/2024 Telephone [facility] [place] [address] RickyMavis 08/17/2024 Telephone [place] [address] Kenia Devine MD 08/10/2024 3:20 PM EDT Ancillary Procedure Radiology Library at [facility] [place] [address] Darnell Abrams MD 08/10/2024 Interpretation Only Radiology Library at [facility] [place] [address] Darnell Abrams MD 07/29/2024 Telephone [place] [address] Glo Fermin, ISREAL 07/25/2024 Telephone [place] [address] Salvador Blair from Last 3 Months Social History Tobacco Use Types Packs/Day Years Used Date Smoking Tobacco: Never Smokeless Tobacco: Never Alcohol Use Standard Drinks/Week Comments Not Currently 0 (1 standard drink = 0.6 oz pur e alcohol) [facility] Inpatient Questions Answer Date Recorded Does [...] EDT Inhaled Oxygen Concentration - - Weight 134.3 kg (296 lb) 10/10/2024 12:52 PM EST Height 177.8 cm (5' 10) 10/10/2024 12:52 PM EST Body Mass Index 42.47 10/10/2024 12:52 PM EST Plan of Treatment Upcoming Encounters Date Type Department Care Team (Late st Contact Info) Description 11/04/2024 1:00 PM EST Office Visit [facility] [place] [address] Pauline Patino, BALLAST CLEANING OPERATOR [facility] [place] [address] Health Maintenance Due Date Last Done Comments CT Colonography 1965 FIT DNA 1965 FIT 1965 Sigmoidoscopy 1965 Pneumococcal Vaccine: At-Ris k 5-64yrs (1 of 2 - PCV) 1970 HIV screen 1982 Hepatitis C Screening 1982 Lipid Screening 1982 Tetanus/Diphtheria/Pertussis Vaccines (1 - Tdap) 1983 Zoster vaccine (1 of 2) 2014 Advance Directive 2019 Covid-19 Vaccine (4 - 2023-2 5 season) 2024 12/30/2021, 03/05/2021, 02/05/2021 Influenza (Flu) vaccine (1 o f 1 - Influenza standard series) 07/17/2024 RSV Vaccine (1 - Risk 60-74 years 1-dose series) 2024 Pre-DM monitoring (HgbA1C or FBG) 04/21/2025 024, 08/16/2020 Colonoscopy 08/31/2030 08/31/2020, 08/31/2020 Colorectal Cancer Screening 08/31/2030 Sigmoidoscopy (10 year) with FIT yearly 08/31/2030 08/31/2020, 08/31/2020 Diabetes Screening (HgbA1C o r Glucose) Discontinued 04/21/2024, 08/16/2020 Procedures Procedure Name Priority Date/Time Associated Diagnosis Comments FILM LIBRARY STORAGE ONLY MR SPINE Routine 08/10/2024 3:20 PM EDT MRI/MRA SCAN 08/10/2024 12:00 AM EDT COMPREHENSIVE METABOLIC PANEL Routine 04/21/2024 11:26 AM EDT Mediastinal mass COLONOSCOPY Routine 08/31/2020 10:08 AM EDT from Last 3 Months or Most Recently Relevant to Health Maintenance Results * Film Library- Storage Only MR Spine (08/10/2024 3:20 PM EDT) 08/15/2024 1:[address] [facility] - 08/15/2024 1:12 PM EDT This exam is auto-finalizing. It's purpose is for storage only. Darnell Abrams MD [facility] FILM LIBRARY ORD ERABLES [place], [place] * Scan Doc: MRI/MRA (08/10/2024 12:00 AM EDT) Anatomical Region Laterality Modality Other Narrative 08/10/2024 12:00 AM EDT Ordered by an unspecified provider. Scanning Provider MEDIA MGR SCAN EXT O RDR/RSLT * (ABNORMAL) Comprehensive metabolic panel (non-fasting) (04/21/2024 11:26 AM EDT) Glucose 94 65 - 199 mg/dL [facility] Comment:Diabetes: >=200 mg/d L plus symptoms Blood Urea Nitrogen 17 10 - 20 mg/dL [facility] Creatinine 1.02 0.80 - 1.50 mg/dL [facility] Sodium 142 135 - 145 mmol/L [facility] Potassium 4.7 3.5 - 5.0 mmol/L [facility] Comment: Please note: ??Patients with WBC >100,000 may have falsely elevated Potassium levels. ??For accurate Potassium quantification in these patients send serum separator tube ([facility] top) for subsequent determinations. ??Contact the Clinical Chemistry Laboratory if there are any questions. Chloride 105 98 - 107 mmol/L [facility] Carbon Dioxide 24 22 - 31 mmol/L [facility] Anion Gap 13 5 - 15 mmol/L [facility] Calcium 9.7 8.5 - 10.5 mg/dL [facility] Protein, Total 7.2 6.1 - 8.0 g/dL [facility] Albumin 4.1 3.2 - 5.2 g/dL [facility] Aspartate Aminotransferase 22 0 - 39 unit/L [facility] Alanine Aminotransferase 31 0 - 55 unit/L [facility] Alkaline Phosphatase 132(H) 40 - 130 unit/L [facility] Bilirubin, Total 0.7 0.2 - 1.3 mg/dL [facility] Est Glomerular Filtration Rate 85 >=60 mL/min/1. 73 m?? [facility] Comment: This patient's estimated GFR was [...] Spec In Lab Chace Enriquez MD CHEMISTRY AVERY S Performing Organization Address [facility]/State/ZIP Co de Phone Number [facility] [place] [address] * COLONOSCOPY (08/31/2020 10:08 AM EDT) [facility] Signature COLONOSCOPY [facility] Endoscopy Procedure Date: 08/31/2020 10:08 AM ? Patient Name: Joe Garcia ? Date of : 1965 ? Age: 55 ? Order #: [id number] ? Instrument Name: [id number] ? Procedure: ? Colonoscopy Indications: ? Abdominal pain Providers: ? Perez Rubalcava MD, Gladys ? Chasidy Ortega, ? Automatic Line Set Up Mechanic Referring : ?Estefani Nicole Medicines: ? Monitored [...] Procedure Code(s): ?? --- Professional --- ? 22031, Colonoscopy, flexible; with ? removal of tumor(s), polyp(s), or ? other lesion(s) by snare technique ? 33129, 59, Colonoscopy, flexible; ? with biopsy, single or multiple ? --- Technical --- ? 16483, Colonoscopy, flexible; with ? removal of tumor(s), polyp(s), or ? other lesion(s) by snare technique ? 80071, 59, Colonoscopy, flexible; ? with biopsy, single or multiple CPT copyright 2019 [employer]. All rights reserved. The codes documented in this report are preliminary and upon coat checker review may be revised to meet current [...] Status decision made by: Patient Care Teams Phd Internship Relationship Specialty Start Date End Date Kenia Devine MD [address] [place] [address] [place] [address] PCP - General Family Medicine 08/29/24
--- OUTSIDE RECORDS SUMMARY | 2024-10-14 13:09 | XMS_ITS | Encounter Summary ---
[place] [address] Care Team Providers Care Musician Instrumental Name Role Phone Kenia Devine MD Primary Care Provider [phone] Reason for Referral * Consultation (Routine) - Authorized Specialty Diagnoses / Procedures Referred By Contac t Referred To [facility] Diagnoses Other spondylosis with radiculopathy, lumbar region Sonia Lou APRN [facility] [place] [address] [facility] [place] [address] Referral ID Status Reason Start Date Expiration Date Visits Requested Visits Authorized [id number] Authorized Consult, Test & Treat 10/10/2024 10/10/2025 1 1 Reason for Visit * Reason Comments Establish Care Pain Lower back * Consultation (Routine) - Authorized Specialty Diagnoses / Procedures Referred By Contac t Referred To [facility] Diagnoses Radiculopathy of lumbar region Kenia Devine MD [address] [place] [address] [place] [address] [facility] [place] [address] Referral ID Status Reason Start Date Expiration Date Visits Requested Visits Authorized [id number] Authorized Consult, Test & Treat PCP Updated and/or Approved 08/12/2024 02/09/2025 6 6 Encounter Details Date Type Department Care Team (Late st Contact Info) Description 10/10/2024 1:00 PM EST Office Visit [facility] at [facility] [place] [address] Sonia Lou APRN [facility] [place] [place] [address] Other spondylosis with radiculopathy, lumbar region Social History Tobacco Use Types Packs/Day Years Used Date Smoking Tobacco: Never Smokeless Tobacco: Never Alcohol Use Standard Drinks/Week Comments Not Currently 0 (1 standard drink = 0.6 oz pur e alcohol) [facility] Inpatient Questions Answer Date Recorded Does [...] Sign Reading Time Taken Comments Blood Pressure - - Pulse - - Temperature - - Respiratory Rate - - Oxygen Saturation - - Inhaled Oxygen Concentration - - Weight 134.3 kg (296 lb) 10/10/2024 12:52 PM EST Height 177.8 cm (5' 10) 10/10/2024 12:52 PM EST Body Mass Index 42.47 10/10/2024 12:52 PM EST documented in this encounter Progress Notes * Sonia Lou APRN - 10/10/2024 1:00 PM EST [facility] Medical Decision Making: Joe is a 59 y.o. male seen today for a chief complaint of predominantly axial back pain with occasional radiating symptoms to the right lower extremity that is currently not happening. Today, I discussed with the patient that there was no surgical indication for predominantly axial back cancer.I have recommended that he consider a dedicated exercise program with a focus on weight loss. He could reasonably see one of our pain providers to discuss and consider medial branch block with progression to radiofrequency ablation to see if this could manage some of the discomfort. I do not role for additional medication at this point outside of use of Tylenol and ibuprofen. He is amenable to having a consult with our pain providers to discuss potential MBB/RFA. Diagnosis: ICD-10-CM 1. 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 male seen in referral today upon the request of Kenia Devine for evaluation of a chief complaint of lower back pain. In review of the referral documentation, this [place] chronic issue that usually waxes and wanes but his most recent flare has been present for a few months. He did endorse occasional radicular symptoms to the right lower extremity. Symptoms were worsened with standing and walking. He also reported a sense of stiffness. Pain was improved with layingdown. Otherwise, he was neurologically intact. He was referred for an MRI, started on Lyrica, and referred here for further evaluation. Today, the patient reports that he has had on and off lower back pain since he was in his 20s. He does report that over the last year or so the discomfort has been worsening. He now reports that the pain is there most of the time. He has occasional radiating symptoms to the right lower extremity that tends to come and go every 3 days and lasts for about 30 minutes at a time. He has numbness and tingling again, occasionally the bilateral lower extremities only affecting the anterior lateral aspect of the thigh on the right greater than the left. He denies any weakness to lower extremities but does feel weakness in the lumbar spine. He reports that this point, he cannot get up off of the floor without finding something to push up on. There are no symptoms of neurogenic claudication. Symptoms are worse with bending, lifting, and twisting. He has some improvement with sitting or laying flatfor 45 minutes to 1 hour at a time. He was last in physical therapy 3 years ago. He does not endorse that he keeps up with a home exercise program. He has trialed gabapentin, pregabalin, ibuprofen, and Tylenol with minimal improvement ROS A ten point review of systems was completed today and, of note, pertinent positives and negatives are indicated in the HPI. reports that he has never smoked. He has never used smokeless tobacco. Conservative Treatment: Physical Therapy: None in the last 3 years Home Exercise Program: None Medications: Gabapentin Lyrica Tylenol Ibuprofen Other Treatments: Rest Activity modification Injections: Nerve block 3 years ago at [facility] without improvement Physical Examination Wt Readings from Last 1 Encounters: 10/10/24 134.3 kg (296 lb) BMI Readings from Last 1 Encounters: 10/10/24 42.47 kg/m?? Pain: 2 (Last 7 days: Lowest- 2 Highest- 8) General: Pleasant, cooperative, Mood and affect are appropriate Posture: Upright Gait: Normal, Non-Antalgic and Able to heel and toe walk without difficulty Palpation: No palpable masses, lesions or deformities Skin: Intact with no stigmata of underlying disease. ROM: Limited secondary to body habitus Sensation: Grossly intact throughout all dermatomes Neuro: Strength: 5/5 throughout all muscle groups Reflexes: Absent at the knees and the ankles Imaging and Test Review: On the day of this encounter, I independently reviewed MRI of the lumbar spine completed on 08/10/2024 demonstrating some slight degenerative disc changes at L5-S1 with some mild right foraminal stenosis at L5-S1 and to lesser extent, L4- 5. There is degenerative facet changes as well. No significantdegree of central canal stenosis. CC: Kenia Devine MD Referring Provider: Kenia Lou APRN 10/10/2024 [facility] documented in this encounter Plan of Treatment Upcoming Encounters Date Type Department Care Team (Late st Contact Info) Description 11/04/2024 1:00 PM EST Office Visit [place] [address] Pauline Patino APRN [facility] [place] [address] Scheduled Referrals Name Type Priority Associated Diagnoses Orde r Schedule Referral to Pain and Spine Center (Internal only) Outpatient Referral Routine Other spondylosis with radiculopathy, lumbar region Ordered: 10/10/2024 documented as of this encounter Visit Diagnoses Diagnosis Other spondylosis with radiculopathy, lumbar region documented in this encounter Care Teams Musician Instrumental Relationship Specialty Start Date End Date Kenia Devine MD [address] [place] [address] [place] [address] PCP - General Family Medicine 08/29/24 documented as of this encounter
--- OUTSIDE RECORDS SUMMARY | 2024-10-14 13:09 | XMS_ITS | Encounter Summary ---
Author Organization [facility] [place] [address] Care Team Providers Care Lathe Operator Contact Lens Name Role Phone Kenia Devine MD Primary Care Provider [phone] Encounter Details Date Type Department Care Team (Latest Contact Info) Description 05/26/2024 Travel Social History Tobacco Use Types Packs/Day Years Used Date Smoking Tobacco: Never Smokeless Tobacco: Never Alcohol Use Standard Drinks/Week Comments Not Currently 0 (1 standard drink = 0.6 oz pur e alcohol) [facility] Inpatient Questions Answer Date Recorded Does Anyone [...] as of this encounter Plan of Treatment Upcoming Encounters Date Type Department Care Team (Late st Contact Info) Description 11/04/2024 1:00 PM EST Office Visit [place] [address] Pauline Patino, STACY [facility] [place] [address] documented as of this encounter Visit Diagnoses Not on filedocumented in this encounter Care Teams Lathe Operator Contact Lens Relationship Specialty Start Date End Date Kenia Devine MD [address] [place] [address] [place], [place] [id number] PCP - General Family Medicine 06/02/22 08/28/24 documented as of this encounter
--- OUTSIDE RECORDS SUMMARY | 2024-10-14 13:09 | XMS_ITS | Encounter Summary ---
Author Organization [facility] Address [facility] [place] [address] Care Team Providers Care Vice Chairman Name Role Phone Kenia Devine MD Primary Care Provider [phone] Encounter Details Date Type Department Care Team (Latest Contact Info) Description 05/26/2024 11:00 AM EDT - 05/26/2024 11:59 PM EDT Hospital Encounter XRay at [address] [place] [phone] Mediastinal mass Discharge Disposition: Home Social History Tobacco Use Types Packs/Day Years Used Date Smoking Tobacco: Never Smokeless Tobacco: Never Alcohol Use Standard Drinks/Week Comments Not Currently 0 (1 standard drink = 0.6 oz pur e alcohol) [facility] Inpatient Questions Answer Date Recorded Does [...] Sig Dispensed Refills Start Date End Date albuteroL 90 mcg/actuation inhaler (HFA) Inhale 2 puffs into the lungs every 4 hours as needed for Wheezing. Use with Spacer ciprofloxacin-dexametha sone (Ciprodex) 0.3-0.1 % Drops, Suspension INSTILL 4 DROPS INTO AFFECTED EAR(S) TWO TIMES A DAY FOR 7 DAYS 01/22/2022 cyclobenzaprine (Flexeril) 10 mg Tablet as needed. 12/10/2021 budesonide-formoteroL (SYMBICORT) 80-4.5 mcg/actuation HFA Aerosol Inhaler Inhale into the lungs as needed. prochlorperazine (Compazine) 10 mg Tablet Take 10 mg by mouth as needed for Nausea. ondansetron (Zofran) 4 mg Tablet Take 4 mg by mouth as needed for Nausea. EPINEPHrine (ADRENALIN) 0.1 mg/mL (1:10,000) Syringe Inject as directed as needed. melatonin 5 mg Tablet Take 10 mg by mouth nightly. oxyCODONE (Roxicodone) 5 mg tablet Take 1 tablet by mouth every 4 hours as needed for Pain. 5 tablet 05/07/2024 10/10/2024 traMADoL (Ultram) 50 mg Tablet Take 1 tablet by mouth every 6 hours as needed for Pain. 10 tablet 01/31/2022 10/10/2024 amLODIPine (Norvasc) 10 mg Tablet TAKE ONE TABLET BY MOUTH EVERY DAY 01/17/2022 10/10/2024 predniSONE (Deltasone) 10 mg Tablet TAKE 5 TABLETS BY MOUTH FOR 3 DAYS, THEN TAKE 4 TABLETS FOR 3 DAYS, THEN 3 TABLETS FOR 3 DAYS, THEN 2 TABLETS FOR 3 DAYS, THEN 1 TABLET FOR 09/26/2021 10/10/2024 SUMAtriptan (IMITREX) 20 mg/actuation [place], Non-Aerosol as needed. 01/23/2022 10/10/2024 escitalopram (Lexapro) 10 mg Tablet Take 10 mg by mouth daily. 10/10/2024 baclofen (Lioresal) 10 mg Tablet TAKE ONE TABLET BY MOUTH THREE TIMES A DAY NEEDED FOR 4 DAYS 10/17/2021 10/10/2024 nabumetone (Relafen) 500 mg Tablet TAKE ONE TABLET BY MOUTH TWICE A DAY NEEDED 12/10/2021 10/10/2024 ondansetron ODT (Zofran-ODT) 4 mg Tablet, Rapid Dissolve DISSOLVE ONE TABLET ON TONGUE EVERY 6 HOURS NEEDED 11/28/2021 10/10/2024 tamsulosin (Flomax) 0.4 mg Capsule TAKE ONE CAPSULE BY MOUTH EVERY DAY 09/18/2021 10/10/2024 amitriptyline (Elavil) 10 mg Tablet Take 10 mg by mouth nightly. 10/10/2024 prochlorperazine (Compazine) [address] 25 mg rectally every 12 hours as needed for Nausea. 10/10/2024 omeprazole (PriLOSEC) 20 mg Capsule, Delayed Release(E.C.) Take 40 mg by mouth daily. 10/10/2024 buPROPion (WELLBUTRIN XL) 150 mg Tablet Extended Release 24 hr 0 05/02/201810/10 mirtazapine (REMERON) 15 mg Tablet 30 mg. 0 05/26/2018 10/10/2024 risperiDONE (RISPERDAL) 1 mg Tablet 0 05/26/2018 10/10/2024 PROAIR HFA 90 mcg/actuation HFA Aerosol Inhaler INHALE 2 PUFFS EVERY 4 HOURS 0 03/30/2018 10/10/2024 documented as of this encounter Plan of Treatment Upcoming Encounters Date Type Department Care Team (Late st Contact Info) Description 11/04/2024 1:00 PM EST Office Visit [place] [address] Pauline Patino, SQL SERVER DEVELOPER [facility] [place] [address] documented as of this encounter Procedures Procedure Name Priority Date/Time Associated Diagnosis Comments XR CHEST PA AND LATERAL Routine 05/26/2024 11:11 AM EDT Mediastinal mass documented in this encounter Results * XR Chest PA & Lateral (Generic) (05/26/2024 11:11 AM EDT) WORKSTATION ID [id number] RAD Anatomical Region Laterality Modality Chest N/A Digital Radiogra phy Impressions 05/26/2024 4:06 PM EDT No acute findings . Resolution of postoperative findings Thank you for letting us participate in the care of this patient. ??If you are a health care provider and have any questions regarding this report, please contact the number below. ??For patients who have questions please contact the health customer care professional that requested your imaging first. ? Electronically signed by: Kailee Underwood MD, [facility] ([phone]), at 05/26/2024 4:06 PM Narrative 05/26/2024 4:06 [...] patients who have questions please contactthe health customer care professional that requested your imaging first. Electronically signed by: Kailee Underwood MD, [facility]([phone]), at 05/26/2024 4:06 PM Chace Enriquez MD IMG DX ORDERABLES documented in this encounter Visit Diagnoses Diagnosis Mediastinal mass Swelling, mass, or lump in chest documented in this encounter Care Teams Vice Chairman Relationship Specialty Start Date End Date Kenia Devine MD [address] [place] [address] [place] [address] PCP - General Family Medicine 06/02/22 08/28/24 documented as of this encounter
--- OUTSIDE RECORDS SUMMARY | 2024-10-14 13:09 | XMS_ITS | Encounter Summary ---
Author Organization [facility] [place] [address] Care Team Providers Care Radio Equipment Repairer Name Role Phone Kenia Devine MD Primary Care Provider [phone] Encounter Details Date Type Department Care Team (Late st Contact Info) Description 05/10/2024 Telephone [place] [phone] Meghan Victoria, RN Social History Tobacco Use Types Packs/Day Years Used Date Smoking Tobacco: Never Smokeless Tobacco: Never Alcohol Use Standard Drinks/Week Comments Not Currently 0 (1 standard drink = 0.6 oz pur e alcohol) [facility] Inpatient Questions Answer Date Recorded Does [...] RTC on 05/26/[address] Enriqeuz Patient is aware of appointments and know to call with any questions or concerns. documented in this encounter Plan of Treatment Upcoming Encounters Date Type Department Care Team (Late st Contact Info) Description 11/04/2024 1:00 PM EST Office Visit [place] [address] Pauline Patino, [facility] [place] [address] documented as of this encounter Visit Diagnoses Not on filedocumented in this encounter Care Teams Radio Equipment Repairer Relationship Specialty Start Date End Date Kenia Devine MD [address] [place] [address] [place] [address] PCP - General Family Medicine 06/02/22 08/28/24 documented as of this encounter
--- OUTSIDE RECORDS SUMMARY | 2024-10-14 13:09 | XMS_ITS | Encounter Summary ---
Author Organization [facility] Address [facility] [place] [address] Care Team Providers Care Admin Secretary Name Role Phone Kenia Devine MD Primary Care Provider [phone] Encounter Details Date Type Department Care Team (Late st Contact Info) Description 08/22/2024 Telephone [facility] at [facility] [place] [address] Mavis García Social History Tobacco Use Types Packs/Day Years [...] encounter Miscellaneous Notes * Telephone Encounter - Mavis García - 08/22/2024 3:57 PM EDT Patient spoke to Call Center regarding his referral. We still have nothing in chart for this patient. * Telephone Encounter - Mavis García - 08/22/2024 3:57 PM EDT Copied from CRM #[id number]. Topic: Specialty Dept CRMs - Generic Call >> Aug 19, 2024 4:39 PM Bailee Brown wrote: Specialist: CP&S Relationship (if other than patient-full name): Joe Garcia Reason for Call: Patient has called a couple times at this point to see if we have the referral. Itlooks like we still do not have it but once we do if we could call him that would be great, thank you team. documented in this encounter Plan of Treatment Upcoming Encounters Date Type Department Care Team (Late st Contact Info) Description 11/04/2024 1:00 PM EST Office Visit [place] [address] Pauline Patino, ANALYTICS DIRECTOR [facility] [address] documented as of this encounter Visit Diagnoses Not on filedocumented in this encounter Care Teams Admin Secretary Relationship Specialty Start Date End Date Kenia Devine MD [address] [place] [address] [place] [address] PCP - General Family Medicine 06/02/22 08/28/24 documented as of this encounter
--- OUTSIDE RECORDS SUMMARY | 2024-10-14 13:09 | XMS_ITS | Continuity of Care Document ---
Author Organization [facility] Address [address] [place] [address] Support Name Relationship Address Phone DAVIO, EUGENIA [...] Unknown Unav ailable Care Team Providers Care School Manager Name Role Phone Kenia Devine Primary Care Physician [phone] Encounter [facility] Date(s): 08/10/24 - 08/10/[address] [address] Encounter Diagnosis Low back pain(Discharge Diagnosis) - 08/10/24 Discharge Disposition: Home or Self Care Attending Physician: Kenia Devine MD Admitting Physician: Kenia Devine MD Referring Physician: Kenia Devine MD Allergies, Adverse Reactions, Alerts Substance Criticality Severity Reaction Reaction Severity Status HOUSE DUST MITE Unable to assess criticality Unknown Active MOLD Unable to assess criticality Unknown Active EGG Unable to assess criticality Unknown Vomiting Active FISH CONTAINING PRODUCTS Unable to asses s criticality Unknown Vomiting Active TREE NUT Unable to assess criticality Unknown Anaphylactic reaction Active PEANUT 1 High criticality Severe Anaphylaxis A ctive metoclopramide Unable to assess criticality Unknown Urticaria Active acetaminophen-hydrocodon e Unable to assess criticality Unknown Vomiting Active hydroCHLOROthiazide 2 Unable to assess criticality Unknown Active 1fatal(deprecated) 2laryngeal spasm Assessment and [...] NEEDED, # 8.5 g, 6 Refill(s), Pharmacy: [facility], 178, cm, 05/04/24 8:35:00 EDT, Height, 120.66, kg, 05/17/24 11:11:00 EDT, Weight Dosing Start Date: 07/15/24 Status: Ordered albuterol 2.5 mg/3 mL (0.083%) inhalation solution 2.5 mg = 3 mL, Nebulized Inhalation, every 6 hr, PRN as needed for wheezing, DX: Asthma (J45.20), #90 mL, 3 Refill(s), Pharmacy: [facility], 178, cm, 05/04/24 8:35:00 EDT, Height, 120.66, kg, 05/17/24 11:11:00 EDT, Weight Dosing Start Date: 06/24/24 Status: Ordered alfuzosin 10 mg oral tablet, extended release 10 mg = 1 tab, Oral, Daily, # 90 tab, 3 Refill(s), Pharmacy: [facility], 178.5, cm, 10/07/23 14:51:00 EST, Height, 116.95, kg, 11/04/23 14:29:00 EST, Weight Dosing Start Date: 11/25/23 Stop Date: 11/19/24 Status: Ordered amitriptyline 100 mg oral tablet 100 mg = 1 tab, Oral, every day at bedtime, # 90 tab, 2 Refill(s), Pharmacy: [facility], 178, cm, 05/04/24 8:35:00 EDT, Height, 120.66, kg, 05/17/24 11:11:00 EDT, Weight Dosing Start Date: 06/26/24 Status: Ordered Ativan 1 mg oral tablet 1 mg = 1 tab, Oral, Daily, PRN nausea/vomiting, Use as needed during cyclical vomiting episodes, 1 mg tab every 4 hrs PRN until resolved, # 30 tab, 0 Refill(s), Pharmacy: [facility], 178, cm, 05/03/23 10:32:00 EDT, Height/Length Dosing, 125.7, kg, 05/03/23 10:32:00 EDT, Weight Dosing Start Date: 07/21/23 Status: Ordered capsaicin 0.025% topical cream 1 barrera, Topical, TID, PRN other (see comment), APPLY TO THE AFFECTED AREA(S) NEEDED Start Date: 07/19/22 Status: Ordered cyclobenzaprine 10 mg oral tablet 1 tab, Oral, Daily, # 30 tab, 3 Refill(s), Pharmacy: [facility], 178, cm, 05/04/24 8:35:00 EDT, Height, 120.66, kg, 05/17/24 11:11:00 EDT, Weight Dosing Start Date: 07/07/24 Status: Ordered EPINEPHrine 0.3 mg injectable kit See Instructions, INJECT INTRAMUSCULARLY ONCE, # 2 mL, 0 Refill(s), Pharmacy: [facility],178, cm, 12/30/23 15:35:00 EST, Height, 155.62, kg, 12/30/23 15:38:00 EST, Weight Dosing Start Date: 01/13/24 Status: Ordered escitalopram 20 mg oral tablet 20 mg = 1 tab, Oral, every morning, # 30 tab, 3 Refill(s), Pharmacy: [facility], 178, cm,12/30/23 15:35:00 EST, Height, 121, kg, 03/30/24 8:26:00 EDT, Weight Dosing Start Date: 03/30/24 Stop Date: 07/28/24 Status: Ordered haloperidol 2 mg oral tablet 2 mg = 1 tab, Oral, every 6 hr, PRN nausea/vomiting, # 60 tab, 5 Refill(s), Pharmacy: [facility], 178, cm, 05/04/24 8:35:00 EDT, Height, 120.66, kg, 05/17/24 11:11:00 EDT, Weight Dosing Start Date: 05/20/24 Status: Ordered ibuprofen 800 mg oral tablet 800 mg = 1 tab, Oral, every 8 hr, PRN other (see comment), as needed Start Date: 05/01/22 Status: Ordered lisinopril 10 mg oral tablet 1 tab, Oral, Daily, # 90 tab, 3 Refill(s), Pharmacy: [facility], 178, cm, 05/04/24 8:35:00 EDT, Height, 120.66, kg, 05/17/24 11:11:00 EDT, Weight Dosing Start Date: 06/13/24 Status: Ordered melatonin 3 mg oral tablet 9 mg = 3 tab, Oral, every day at bedtime Start Date: 07/19/22 Status: Ordered metFORMIN 500 mg oral tablet 1 tab, Oral, BID w/Meals, # 90 tab, 1 Refill(s), Pharmacy: [facility], 178, cm, 05/04/24 8:35:00 EDT, Height, 120.66, kg, 05/17/24 11:11:00 EDT, Weight Dosing Start Date: 06/13/24 Status: Ordered Metoprolol Succinate ER 50 mg oral tablet, extended release 1 tab, Oral, Daily, # 90 tab, 3 Refill(s), Pharmacy: [facility], 177, cm, 08/01/23 8:37:00 EDT, Height/Length Dosing, 129, kg, 08/01/23 8:37:00 EDT, Weight Dosing Start Date: 08/23/23 Status: Ordered mirtazapine 30 mg oral tablet 30 mg = 1 tab, Oral, every night at bedtime, # 30 tab, 3 Refill(s), Pharmacy: [facility],178, cm, 12/30/23 15:35:00 EST, Height, 121, kg, 03/30/24 8:26:00 EDT, Weight Dosing Start Date: 03/30/24 Stop Date: 07/28/24 Status: Ordered Nebuliser machine Nebuliser machine, Nebulizer machine with Mask and Tubing, Supply, See instructions, # 1 EA, 0 Refill(s) Start Date: 06/24/24 Status: Ordered omeprazole 40 mg oral delayed release capsule 1 cap, Oral, Daily, # 90 cap, 3 Refill(s), Pharmacy: [facility], 178, cm, 12/30/23 15:35:00 EST, Height, 116.75, kg, 02/03/24 12:42:00 EDT, Weight Dosing Start Date: 02/16/24 Status: Ordered pregabalin 75 mg oral capsule 75 mg = 1 cap, Oral, BID, # 60 cap, 0 Refill(s), Pharmacy: [facility], 178, cm, 05/04/24 8:35:00 EDT, Height, 130.95, kg, 08/09/24 13:51:00 EDT, Weight Dosing Start Date: 08/10/24 Status: Ordered prochlorperazine 10 mg oral tablet 10 mg = 1 tab, Oral, QID, PRN nausea, # 20 tab, 0 Refill(s), Pharmacy: [facility], 178, cm, 05/04/24 8:35:00 EDT, Height, 120.66, kg, 05/17/24 11:11:00 EDT, Weight Dosing Start Date: 05/31/24 Status: Ordered risperiDONE 1 mg oral tablet 1.5 mg = 1.5 tab, Oral, every night at bedtime, # 45 tab, 0 Refill(s), Pharmacy: [facility], 178, cm, 05/04/24 8:35:00 EDT, Height, 120.66, kg, 05/17/24 11:11:00 EDT, Weight Dosing Start Date: 08/01/24 Stop Date: 08/31/24 Status: Ordered Symbicort 80 mcg-4.5 mcg/inh inhalation aerosol 2 puffs, Inhale, BID, # 10.2 g, 5 Refill(s), Pharmacy: [facility], 177.8, cm, 09/22/22 6:14:00 EST, Height/Length [...] Position: Physician Member Role: Informed Provider Address: [address] [place] [address] Name: Veronique Rowan METALLURGIST HELPER Position: No Access Member Role: Nurse Practitioner Address: [address] [place] [address] Name: Irma Monteiro METALLURGIST HELPER Position: Physician Member Role: Nurse Practitioner Address: [address] [place] [address] Care Team Related Persons Name: SALO BARBOSA Name: JANET BARBOSA Insurance Providers Guarantor name: EUGENIA KNOWLES Health Plan Information #: 1 Payer: [employer] Member Number: [id number] Policy Number: NA Health Plan Information #: 2 Payer: [employer] Member Number: [id number] Policy Number: NA Health Plan Information #: 3 Payer: [employer] Member Number: NA Policy Number: NA
--- OUTSIDE RECORDS SUMMARY | 2024-10-14 13:09 | XMS_ITS | Encounter Summary ---
Author Organization [facility] [place] [address] Care Team Providers Care Cast Shell Grinder Name Role Phone Kenia Devine MD Primary Care Provider [phone] Encounter Details Date Type Department Care Team (Late st Contact Info) Description 07/25/2024 Telephone [place] [phone] Salvador Blair Social History Tobacco Use Types Packs/Day Years Used Date Smoking Tobacco: Never Smokeless Tobacco: Never Alcohol Use Standard Drinks/Week Comments Not Currently 0 (1 standard drink = 0.6 oz pur e alcohol) [facility] Inpatient Questions Answer Date Recorded Does Anyone [...] * Telephone Encounter - Salvador Blair - 07/25/2024 10:11 AM EDT Call from patient, he had prostate procedure at [facility] about 3 weeks ago and they have discovered more cancerous tissue. Patient is questioning if he needs additional follow up with Dr. Enriquez. Faxedrequest for op note and pathology to [facility] [phone]. documented in this encounter Plan of Treatment Upcoming Encounters Date Type Department Care Team (Late st Contact Info) Description 11/04/2024 1:00 PM EST Office Visit [place] [address] Pauline Patino APRN [facility] [place] [address] documented as of this encounter Visit Diagnoses Not on filedocumented in this encounter Care Teams Cast Shell Grinder Relationship Specialty Start Date End Date Kenia Devine MD [address] [place] [address] [place] [address] PCP - General Family Medicine 06/02/22 08/28/24 documented as of this encounter
--- OUTSIDE RECORDS SUMMARY | 2024-10-14 13:09 | XMS_ITS | Encounter Summary ---
Author Organization [facility] [place] [address] Care Team Providers Care Movie Theater Manager Name Role Phone Kenia Devine MD Primary Care Provider [phone] Encounter Details Date Type Department Care Team (Late st Contact Info) Description 08/10/2024 3:20 PM EDT Ancillary Procedure Radiology Library at [facility] [place] [id number] Darnell Abrams MD [facility] [place] [address] Social History Tobacco Use Types Packs/Day Years Used Date Smoking Tobacco: Never Smokeless Tobacco: Never Alcohol Use Standard Drinks/Week Comments Not Currently 0 (1 standard drink = 0.6 oz pur e alcohol) [facility] Inpatient Questions Answer Date Recorded Does Anyone [...] Office Visit [facility] and Spine Center at [facility] [place] [address] Pauline Patino, RESIDENT CARE SUPERVISOR [facility] [place] [address] documented as of this encounter Procedures Procedure Name Priority Date/Time Associated Diagnosis Comments FILM LIBRARY STORAGE ONLY MR SPINE Routine 08/10/2024 3:20 PM EDT documented in this encounter Results * Film Library- Storage Only MR Spine (08/10/2024 3:20 PM EDT) 08/15/2024 1:12 PM EDT Narrative [facility] - 08/15/2024 1:12 PM EDT This exam is auto-finalizing. It's purpose is for storage only. Darnell Abrams MD IMG FILM LIBRARY ORD ERABLES [place], [place] documented in this encounter Visit Diagnoses Not on filedocumented in this encounter Care Teams Movie Theater Manager Relationship Specialty Start Date End Date Kenia Devine MD [address] [place] [address] [place] [address] PCP - General Family Medicine 06/02/22 08/28/24 documented as of this encounter
--- OUTSIDE RECORDS SUMMARY | 2024-10-14 13:09 | XMS_ITS | Encounter Summary ---
Author Organization [facility] [place] [address] Care Team Providers Care Flatwork Assembler Name Role Phone Kenia Devine MD Primary Care Provider [phone] Encounter Details Date Type Department Care Team (Late st Contact Info) Description 08/17/2024 Telephone [place] [address] Kenia Devine MD [address] [place] [address] Social History Tobacco Use Types Packs/Day Years Used Date Smoking Tobacco: Never Smokeless Tobacco: Never Alcohol Use Standard Drinks/Week Comments Not Currently 0 (1 standard drink = 0.6 oz pur e alcohol) [facility] Inpatient Questions Answer Date Recorded [...] encounter Miscellaneous Notes * Telephone Encounter - Alie Barreto - 08/17/2024 11:49 AM EDT Clinic Coverage - Reason for Call: Call back PCP: Kenia Devine MD Message: Patient is calling to return call Caller Name (If other than patient): Joe Relationship to Patient (if other than self): Relationship To Patient: Patient Callback number: [phone] ([employer] PHONEALL, PREFPHONE) Best time you are available: 4-5pm is best Route Per Clinic Coverage Page documented in this encounter Plan of Treatment Upcoming Encounters Date Type Department Care Team (Late st Contact Info) Description 11/04/2024 1:00 PM EST Office Visit [facility] [place] [address] Pauline Patino, SAND CONDITIONER MACHINE [facility] [place] [address] documented as of this encounter Visit Diagnoses Not on filedocumented in this encounter Care Teams Flatwork Assembler Relationship Specialty Start Date End Date Kenia Devine MD [address] [place] [address] [place] [address] PCP - General Family Medicine 08/29/24 documented as of this encounter
--- OUTSIDE RECORDS SUMMARY | 2024-10-14 13:09 | XMS_ITS | Encounter Summary ---
Author Organization [facility] Address [facility] [place] [address] Care Team Providers Care Driver Salesman Name Role Phone Kenia Devine MD Primary Care Provider [phone] Encounter Details Date Type Department Care Team (Latest Contact Info) Description 05/24/2024 Multidisciplinary Ca re Committee [place] [address] Chace Enriquez MD [facility] [place] [address] Social History Tobacco Use Types Packs/Day Years [...] Office Visit [place] [address] Pauline Patino APRN [facility] [place] [address] documented as of this encounter Visit Diagnoses Not on filedocumented in this encounter Care Teams Driver Salesman Relationship Specialty Start Date End Date Kenia Devine MD [address] [place] [address] [place] [address] PCP - General Family Medicine 06/02/22 08/28/24 documented as of this encounter
--- OUTSIDE RECORDS SUMMARY | 2024-10-14 13:09 | XMS_ITS | Encounter Summary ---
Author Organization [facility] [place] [address] Care Team Providers Care Product Representative Name Role Phone Kenia Devine MD Primary Care Provider [phone] Encounter Details Date Type Department Care Team (Late st Contact Info) Description 08/10/2024 Interpretation Only Radiology Library at [facility] ISABELLE Nails [phone] Darnell Abrams MD [facility] [place] [address] Social History Tobacco Use Types Packs/Day Years Used Date Smoking Tobacco: Never Smokeless Tobacco: Never Alcohol Use Standard Drinks/Week Comments Not Currently 0 (1 standard drink = 0.6 oz pur e alcohol) [facility] Inpatient Questions Answer Date Recorded Does Anyone [...] Office Visit Pain and Spine Center at [facility] [place] [phone] Pauline Patino, SENIOR HYDROGEOLOGIST [facility] [place] [address] documented as of this encounter Procedures Procedure Name Priority Date/Time Associated Diagnosis Comments FILM LIBRARY STORAGE ONLY MR SPINE Routine 08/10/2024 3:20 PM EDT documented in this encounter Results * Film Library- Storage Only MR Spine (08/10/2024 3:20 PM EDT) 08/15/2024 1:12 PM EDT Narrative STACY - 08/15/2024 1:12 PM EDT This exam is auto-finalizing. It's purpose is for storage only. Darnell Abrams MD IMG FILM LIBRARY ORD ERABLES [place], [place] documented in this encounter Visit Diagnoses Not on filedocumented in this encounter Care Teams Product Representative Relationship Specialty Start Date End Date Kenia Devine MD [address] [place] [address] [place] [address] PCP - General Family Medicine 06/02/22 08/28/24 documented as of this encounter
--- OUTSIDE RECORDS SUMMARY | 2024-10-14 13:09 | XMS_ITS | Encounter Summary ---
Author Organization [facility] [address] Care Team Providers Care Arbitrator Name Role Phone Kenia Devine MD Primary Care Provider [phone] Encounter Details Date Type Department Care Team (Latest Contact Info) Description 10/10/2024 Travel Social History Tobacco Use Types Packs/Day Years Used Date Smoking Tobacco: Never Smokeless Tobacco: Never Alcohol Use Standard Drinks/Week Comments Not Currently 0 (1 standard drink = 0.6 oz pur e alcohol) [facility] Inpatient Questions Answer Date Recorded Does [...] Office Visit [facility] [place] [address] Pauline Patino, STACY [facility] [place] [address] documented as of this encounter Visit Diagnoses Not on filedocumented in this encounter Care Teams Arbitrator Relationship Specialty Start Date End Date Keina Devine MD [address] [place] [address] [place], [place] [address] PCP - General Family Medicine 08/29/24 documented as of this encounter
--- OUTSIDE RECORDS SUMMARY | 2024-10-14 13:09 | XMS_ITS | Encounter Summary ---
[place] [address] Care Team Providers Care Central Office Installer Name Role Phone Kenia Devine MD Primary Care Provider [phone] Reason for Referral * Consultation (Routine) - Authorized Specialty Diagnoses / Procedures Referred By Contflakito t Referred To Contact Pain and Spine Center Diagnoses Radiculopathy of lumbar region Kenia Devine MD [address] [place] [address] [facility] [place] [address] Referral ID Status Reason Start Date Expiration Date Visits Requested Visits Authorized [id number] Authorized Consult, Test & Treat PCP Updated and/or Approved 08/12/2024 02/09/2025 6 6 Encounter Details Date Type Department Care Team (Latest Contact Info) Description 08/29/2024 Transcribe Orders eDH Incoming Referrals [phone] Kenia Devine MD [address] [place] [address] [place], [place] [phone] Radiculopathy of lumbar region Social History Tobacco Use Types Packs/Day Years Used Date Smoking Tobacco: Never Smokeless Tobacco: Never Alcohol Use Standard Drinks/Week Comments Not Currently 0 (1 standard drink = 0.6 oz pur e alcohol) [facility] Inpatient Questions Answer Date Recorded Does Anyone [...] Office Visit [place] [address] [address]ine Patino [address]N [facility] [place] [address] Scheduled Referrals Name Type Priority Associated Diagnoses Order Schedule Referral to Pain Management Outpatient Referral Routine Radiculopathy of lumbar region Ordered: 08/29/2024 documented as of this encounter Visit Diagnoses Diagnosis Radiculopathy of lumbar region Thoracic or lumbosacral neuritis or radiculitis, unspecified documented in this encounter Care Teams Central Office Installer Relationship Specialty Start Date End Date Kenia Devine MD [address] [place] [address] [place] [address] PCP - General Family Medicine 08/29/24 documented as of this encounter
--- OUTSIDE RECORDS SUMMARY | 2024-10-14 13:09 | XMS_ITS | Encounter Summary ---
[place] [address] Care Team Providers Care Primary Education Professor Name Role Phone Kenia Devine MD Primary Care Provider [phone] Encounter Details Date Type Department Care Team (Late st Contact Info) Description 07/29/2024 Telephone [place] [address] Glo Fermin, RN Social History Tobacco Use Types Packs/Day Years Used Date Smoking Tobacco: Never Smokeless Tobacco: Never Alcohol Use Standard Drinks/Week Comments Not Currently 0 (1 standard drink = 0.6 oz pur e alcohol) [facility] Inpatient Questions Answer Date Recorded Does Anyone [...] encounter Miscellaneous Notes * Telephone Encounter - Glo Fermin RN - 07/29/2024 9:41 AM EDT Phone call to patient to update on his recent phone message. Left message to call back. documented in this encounter Plan of Treatment Upcoming Encounters Date Type Department Care Team (Late st Contact Info) Description 11/04/2024 1:00 PM EST Office Visit [place] [address] Pauline Patino, COOK HOUSE SUPERVISOR [facility] [place] [address] documented as of this encounter Visit Diagnoses Not on filedocumented in this encounter Care Teams Primary Education Professor Relationship Specialty Start Date End Date Kenia Devine MD [address] [place] [address] [place] [address] PCP - General Family Medicine 06/02/22 08/28/24 documented as of this encounter
--- OUTSIDE RECORDS SUMMARY | 2024-10-14 13:10 | XMS_ITS | Encounter Summary ---
Author Organization [facility]ly [facility] Address [facility] [place] [address] Care Team Providers Care Fisher Line Name Role Phone Senthil Mitchell MD Primary [...] Expiration Date Visits Re quested Visits Authorized [id number] 1 1 Encounter Details Date Type Department Care Team (Late st Contact Info) Description 01/31/2022 10:23 AM EDT Anesthesia Event [place]patient [place] [phone] Nasir Díaz MD [facility] [place] [address] Misael Marsh MD [facility] [place] [address] Anesthesia Record Procedure Summary Procedure Name Responsible [...] 0946; metacarpal vein (top of hand), left; etvk-jmo-xflxsi catheter system; 20 gauge, 3/4 in length; [...] Procedure Summary Date: 01/31/22 Room / Location: [facility] OR [address] [place] [address] OSC Anesthesia Start: 1023 Anesthesia Stop: 1046 Procedure: ENDOSCOPY WRIST W/ RELEASE TRANSVERSE CARPAL LIGAMENT (WRVU 6.39) (Right Wrist) Diagnosis: Median nerve neuropathy, unspecified laterality (right carpal tunnel syndrome) Surgeons: Long Kinney MD Responsible Provider: Nasir Díaz MD Anesthesia Type: MAC ASA Status: 3 All Anesthesia Providers: Anesthesiologist: Nasir Díaz MD SHOE MAKER: Emma Lou CRNA Vitals Value Taken Time BP 124/90 01/31/22 1115 Temp 36.2 ??C (97.2 ??F) 01/31/22 1044 Pulse 80 01/31/22 1124 Resp 16 01/31/22 1115 SpO2 93 % 01/31/22 1124 Pain Level 0 01/31/22 1100 Vitals shown include unvalidated device data. Patient Location: PACU/[facility] Level of Consciousness: Awake and Alert [...] 4.67) performed by Perez Rubalcava MD at [facility] ENDOSCOPY ??? PRO ENDOSCOPIC US EXAM, ESOPH N/A 01/09/2021 UPPER EUS- ENDOSCOPIC ULTRASOUND performed by Zhen Carnes MD at [facility] ENDOSCOPY ??? PRO UPPER GI ENDOSCOPY, BIOPSY N/A 08/31/2020 EGD WITH BIOPSY (WRVU 2.49) performed by Perez Rubalcava MD at [facility] ENDOSCOPY Social History Tobacco Use [...] consented to blood products. Plan discussed with SHOE MAKER and attending. Anesthesia Screening documented in this encounter Plan of Treatment Upcoming Encounters Date Type Department Care Team (Allen badillo Contact Info) Description 11/04/2024 1:00 PM EST Office Visit [place] [address] Pauline Patino APRN [facility] [place] [address] documented as of this encounter Visit Diagnoses [...] mg documented in this encounter Care Teams Fisher Line Relationship Specialty Start Date End Date Senthil Mitchell MD [address] [place] [address] [place] [address] PCP - General Family Medicine 12/23/21 06/01/22 documented as of this encounter
--- OUTSIDE RECORDS SUMMARY | 2024-10-14 13:10 | XMS_ITS | Encounter Summary ---
Author Organization [facility] [place] [address] Care Team Providers Care Operator Assistant I Cementing Name Role Phone Kenia Devine MD Primary Care Provider [phone] Encounter Details Date Type Department Care Team (Late st Contact Info) Description 04/06/2024 Telephone [place] [address] Salvador Blair Social History Tobacco Use Types [...] Office Visit [place] [address] Pauline Patino, AUTO REFINISHER [facility] [place] [address] documented as of this encounter Visit Diagnoses Not on filedocumented in this encounter Care Teams Operator Assistant I Cementing Relationship Specialty Start Date End Date Kenia Devine MD [address] [place] [address] [place] [address] PCP - General Family Medicine 06/02/22 08/28/24 documented as of this encounter
--- OUTSIDE RECORDS SUMMARY | 2024-10-14 13:10 | XMS_ITS | Encounter Summary ---
Author Organization [facility] [place] [address] Care Team Providers Care Band Splitter Name Role Phone Kenia Devine MD Primary Care Provider [phone] Encounter Details Date Type Department Care Team (Late st Contact Info) Description 04/20/2023 Ancillary Procedure Radiology Library at [facility] [place] [phone] Kenia Devine MD [address] [place] [address] Social History Tobacco Use Types Packs/Day [...] Office Visit Pain and Spine Center at [facility] [place] [address] Pauline Patino APRN [facility] [place] [address] documented as of this encounter Procedures Procedure Name Priority Date/Time Associated Diagnosis Comments FILM LIBRARY STORAGE ONLY CT CHEST Routine 04/20/2023 12:00 AM EDT documented in this encounter Results * Film Library- Storage Only CT Chest (04/20/2023 12:00 AM EDT) Narrative RAD - 02/26/2024 11:00 AM EDT This exam is auto-finalizing. It's purpose is for storage only. Kenia Devine MD IMG FILM LIBRARY OR DERABLES [place] documented in this encounter Visit Diagnoses Not on filedocumented in this encounter Care Teams Band Splitter Relationship Specialty Start Date End Date Kenia Devine MD [address] [place] [address] [place] [address] PCP - General Family Medicine 06/02/22 08/28/24 documented as of this encounter
--- OUTSIDE RECORDS SUMMARY | 2024-10-14 13:10 | XMS_ITS | Encounter Summary ---
[place] [address] Care Team Providers Care Care Services Manager Name Role Phone Senthil Mitchell MD Primary Care Provider + Reason for Referral * Allergy Testing (Routine) - Closed Specialty Diagnoses / Procedures Referred By Dasia phelps Referred To Contact Allergy Diagnoses Nausea and vomiting, intractability of vomiting not specified, unspecified vomiting type Maria Del Carmen Lutz APRN [address] [place] [address] [facility] [address] [place] [address] Referral ID Status Reason Start Date Expiration Date V isits Requested Visits Authorized [id number] Closed Consult, Test & Treat 02/04/2022 02/04/2023 1 1 Encounter Details Date Type Department Care Team (Late st Contact Info) Description 02/04/2022 Telephone [place] [address] Maria Del Carmen Lutz APRN [address] [place] [address] Social History Tobacco Use Types [...] Office Visit [place] [address] Pauline Patino APRN [facility] [place] [address] Scheduled Referrals Name Type Priority Associated Diagnoses Orde r Schedule Referral to Allergy Outpatient Referral Routine Nausea and vomiting, intractability of vomiting not specified, unspecified vomiting type Ordered: 02/04/2022 documented as of this encounter Visit Diagnoses Diagnosis Nausea and vomiting, intractability of vomiting not specified, unspecified vomiting type documented in this encounter Care Teams Care Services Manager Relationship Specialty Start Date End Date Senthil Mitchell MD [address] [place] [address] [place] [address] PCP - General Family Medicine 12/23/21 06/01/22 documented as of this encounter
--- OUTSIDE RECORDS SUMMARY | 2024-10-14 13:10 | XMS_ITS | Encounter Summary ---
Author Organization [facility] [place] [address] Care Team Providers Care On Site Manager Name Role Phone Kenia Devine MD Primary Care Provider [phone] Encounter Details Date Type Department Care Team (Late st Contact Info) Description 04/27/2024 Telephone [place] [phone] Meghan [place], RN Social History Tobacco Use [...] Office Visit [place] [phone] Pauline Patino, PLASTIC SEWER [facility] [place] [place] [address] documented as of this encounter Visit Diagnoses Not on filedocumented in this encounter Care Teams On Site Manager Relationship Specialty Start Date End Date Kenia Devine MD [address] [place] [address] [place] [address] PCP - General Family Medicine 06/02/22 08/28/24 documented as of this encounter
--- OUTSIDE RECORDS SUMMARY | 2024-10-14 13:10 | XMS_ITS | Encounter Summary ---
Author Organization [facility] [place] [address] Care Team Providers Care Paraprofessional Aide Teacher Name Role Phone Kenia Devine MD Primary Care Provider [phone] Encounter Details Date Type Department Care Team (Late st Contact Info) Description 06/09/2022 Telephone [place] [address] Dre Astorga RN Social History Tobacco Use [...] Office Visit [facility] [place] [address] Pauline Ptaino, STACY [facility] [place] [address] documented as of this encounter Visit Diagnoses Not on filedocumented in this encounter Care Teams Paraprofessional Aide Teacher Relationship Specialty Start Date End Date Kenia Devine MD [address] [place] [address] [place] [address] PCP - General Family Medicine 06/02/22 08/28/24 documented as of this encounter
--- OUTSIDE RECORDS SUMMARY | 2024-10-14 13:10 | XMS_ITS | Encounter Summary ---
[place] [address] Care Team Providers Care Derrick Worker Name Role Phone Estefani Nicole MD Primary Care Provider + Reason for Referral * Diagnostic Test (Routine) - Closed Specialty Diagnoses / Procedures Referred By Dasia phelps Referred To Contact Radiology Diagnoses Intracranial arachnoid cysts Procedures MRI Brain wo Julián [place] [address] [place] [address] Referral ID Status Reason Start Date Expiration Date V isits Requested Visits Authorized [id number] Closed Specialty Service Requested 02/18/2022 08/17/2022 1 1 Reason for Visit * Consultation (Routine) - Closed Specialty Diagnoses / Procedures Referred By Dasia phelps Referred To Contact Neurosurgery Diagnoses Cerebral cysts Arachnoid cyst Estefani Nicole MD [facility] [place] [address] [facility] Neurosurgery [address] [place] [phone] Referral ID Status Reason Start Date Expiration Date V isits Requested Visits Authorized [id number] Closed Consult, Test & Treat Connection Center PCP Updated and/or Approved 01/24/2021 01/24/2022 6 6 Encounter Details Date Type Department Care Team (Latest Contact Info) Description 02/12/2021 1:45 PM EDT TH Visit (TeleHealth) Neurosurgery [place] [address] Julián Sawyer PA [facility] [place] [address] Intracranial arachnoid cysts Social History Tobacco Use [...] Telephone Office Visit 02/12/2021 Estefani Nicole MD [address] [place] [address] [place] [address] RE: Joe Garcia : [address] 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 As you know, Mr. 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 This demonstrated two small incidental arachnoid [...] 4.67) performed by Perez Rubalcava MD at [facility] ENDOSCOPY ??? PRO ENDOSCOPIC US EXAM, ESOPH N/A 01/09/2021 UPPER EUS- ENDOSCOPIC ULTRASOUND performed by Zhen Carnes MD at [facility] ENDOSCOPY ??? PRO UPPER GI ENDOSCOPY, BIOPSY N/A 08/31/2020 EGD WITH BIOPSY (WRVU 2.49) performed by Perez Rubalcava MD at [facility] ENDOSCOPY SOCIAL HISTORY: Social History Tobacco Use [...] minutes. Sincerely, Julián Sawyer PA-C, MS Physician Business Process Analyst [facility] Department of Neurosurgery [address] [place] [address] CC: Estefani Nicole MD CC: Estefani Nicole MD [address] [place] [phone] This message is confidential, intended only for [...] Office Visit [place] [address] Pauline Patino, STACY [facility] [place] [address] documented as of this encounter Results * [...] who have questions please contact the health hospice home care coordinator that requested your imaging first. ? [...] patients who have questions please contactthe health hospice home care coordinator that requested your imaging first. William Louis MD IMG MRI ORDERABLES documented in this encounter Visit Diagnoses Diagnosis Intracranial arachnoid cysts Cerebral cysts Intracranial arachnoid cysts Cerebral cysts documented in this encounter Care Teams Derrick Worker Relationship Specialty Start Date End Date Estefani Nicole MD [facility] [place] [address] PCP - General Family Medicine 10/19/19 12/22/21 documented as of this encounter
--- OUTSIDE RECORDS SUMMARY | 2024-10-14 13:10 | XMS_ITS | Encounter Summary ---
Author Organization [facility] [place] [address] Care Team Providers Care Strategic Planning Director Name Role Phone Kenia Devine MD Primary Care Provider [phone] Encounter Details Date Type Department Care Team (Late st Contact Info) Description 04/22/2024 Telephone [place] [phone] Dacia Blackwell Social History Tobacco Use Types [...] EDT Pft order have been faxed to [facility] documented in this encounter Plan of Treatment Upcoming Encounters Date Type Department Care Team (Late st Contact Info) Description 11/04/2024 1:00 PM EST Office Visit [place] [address] Pauline Patino APRN [facility] [place] [address] documented as of this encounter Visit Diagnoses Not on filedocumented in this encounter Care Teams Strategic Planning Director Relationship Specialty Start Date End Date Kenia Devine MD [address] [place] [address] [place] [address] PCP - General Family Medicine 06/02/22 08/28/24 documented as of this encounter
--- OUTSIDE RECORDS SUMMARY | 2024-10-14 13:10 | XMS_ITS | Encounter Summary ---
[place] [address] Care Team Providers Care Multiple Resaw Operator Name Role Phone Senthil Mitchell MD Primary Care Provider + Reason for Referral * Diagnostic Test (Routine) - Closed Specialty Diagnoses / Procedures Referred By Dasia phelps Referred To Contact Radiology Diagnoses Intracranial arachnoid cysts Procedures MRI Brain wo Contrast Julián Sawyer PA [facility] [place] [address] [place] [address] Referral ID Status Reason Start Date Expiration Date V isits Requested Visits Authorized [id number] Closed Specialty Service Requested 02/18/2022 08/17/2022 1 1 Reason for Visit * Diagnostic Test (Routine) - Closed Specialty Diagnoses / Procedures Referred By Contac t Referred To Contact Radiology Diagnoses Intracranial arachnoid cysts Procedures MRI Brain wo Contrast Julián Sawyer PA [facility] [place] [address] [place] [address] Referral ID Status Reason Start Date Expiration Date V isits Requested Visits Authorized [id number] Closed Specialty Service Requested 02/18/2022 08/17/2022 1 1 Encounter Details Date Type Department Care Team (Latest Contact Info) Description 02/25/2022 8:37 AM EDT - 02/25/2022 11:59 PM EDT Hospital [facility] [place] [address] William Louis MD [facility] [place] [address] Intracranial arachnoid cysts Discharge Disposition: Home Social [...] Sig Dispensed Refills Start Date End Date ciprofloxacin-dexametha sone (Ciprodex) 0.3-0.1 % Drops, Suspension [...] Tablet Take 10 mg by mouth nightly. traMADoL (Ultram) 50 mg Tablet Take 1 [...] FOR 09/26/2021 10/10/2024 SUMAtriptan (IMITREX) 20 mg/actuation [place], Non-Aerosol as needed. 01/23/2022 10/10/2024 escitalopram (Lexapro) [...] Office Visit [place] [address] Pauline Patino, ROLLER MILL TENDER [facility] [place] [address] documented as of this encounter Procedures Procedure [...] who have questions please contact the health director of critical care that requested your imaging first. ? Narrative [...] patients who have questions please contactthe health director of critical care that requested your imaging first. William Louis MD IMG MRI ORDERABLES documented in this encounter Visit Diagnoses Diagnosis Intracranial arachnoid cysts Cerebral cysts documented in this encounter Care Teams Multiple Resaw Operator Relationship Specialty Start Date End Date Senthil Mitchell MD [address] [place] [address] [place] [address] PCP - General Family Medicine 12/23/21 06/01/22 documented as of this encounter
--- OUTSIDE RECORDS SUMMARY | 2024-10-14 13:10 | XMS_ITS | Encounter Summary ---
Author Organization [facility] [place] [address] Care Team Providers Care Grinder Tender Name Role Phone eKnia Devine MD Primary Care Provider [phone] Reason for Visit * Auth/Cert (Routine) Specialty Diagnoses / Procedures Referred By Dasia phelps Referred To Contact Diagnoses Mediastinal mass mediastinal mass Procedures PRO THYMECTOMY, RADICAL MEDIAST DISSSEC PRO BRONCHOSCOPY, DIAGNOSTIC @ROBOTIC THYMECTOMY W/ RAD. MEDIASTINAL DISSECTION (WRVU 23.48) BRONCHOSCOPY, DIAGNOSTIC (WRVU 2.53) MODIFIER ROBOT,Chace Burton MD [facility] [place] [address] [facility] Referral ID Status Reason Start Date Expiration Date Visits Re quested Visits Authorized [id number] 1 1 Encounter Details Date Type Department Care Team (Late st Contact Info) Description 05/06/2024 1:40 PM EDT Anesthesia Event [place] [id number] Calderon Issa MD [facility] [place] [address] Juan Jose Ferguson CRNA [facility] [place] [address] Anesthesia Record Procedure Summary Procedure Name Responsible [...] by Indiana Bennett RN PIV 05/06/24; 1222; [id number] catheter system; 20 gauge, 1 in length; [...] Time: 180405/06/24 1357 by Juan Jose Ferguson, RETAIL SHIFT SUPERVISOR 05/06/24 1805 by Kati Campos RN PIV 05/06/24; 1400; 18 g auge; no longer indicated, catheter/device intact; 05/07/24; 0905/06/24 1400 by Juan Jose Ferguson, RETAIL SHIFT SUPERVISOR 05/07/24 0900 by Tameka Fang RN documented [...] Department of Anesthesiology Post-procedure Note Patient: Joe Gacria Procedure Summary Date: 05/06/24 Room / Location: [facility] MAIN OR Anesthesia Start: 1340 Anesthesia Stop: 1737 Procedures: @ROBOTIC THYMECTOMY W/ RAD. MEDIASTINAL DISSECTION (WRVU 23.48) (Left: Chest) BRONCHOSCOPY, DIAGNOSTIC (WRVU 2.53) MODIFIER ROBOT,DAVINCI XI Diagnosis: Mediastinal mass (mediastinal mass) Surgeons: Chace Enriquez MD Responsible Provider: Calderon Issa MD Anesthesia Type: general ASA Status: 3 All Anesthesia Providers: Anesthesiologist: Calderon Issa MD RETAIL SHIFT SUPERVISOR: Juan Jose Ferguson CRNA Vitals Value Taken Time BP 135/96 05/06/24 1815 Temp 36.2 ??C (97.2 ??F) 05/06/24 1732 Pulse 98 05/06/24 1821 Resp 15 05/06/24 1821 SpO2 96 % 05/06/24 1821 Pain Level Vitals shown include unfiled device data. Patient Location: PACU/[facility] Level of Consciousness: Conscious but Sleepy [...] 4.67) performed by Perez Rubalcava MD at [facility] ENDOSCOPY PRO ENDOSCOPIC US EXAM, ESOPH N/A 01/09/2021 UPPER EUS- ENDOSCOPIC ULTRASOUND performed by Zhen Carnes MD at [facility] ENDOSCOPY PRO ENDOSCOPIC WRIST SURG RELEASE TRANSVERSE CARPAL LIGAMENT Right 01/31/2022 ENDOSCOPY WRIST W/ RELEASE TRANSVERSE CARPAL LIGAMENT (WRVU 6.39) performed by Long Kinney MDat [facility] OSC PRO UPPER GI ENDOSCOPY, BIOPSY N/A 08/31/2020 EGD WITH BIOPSY (WRVU 2.49) performed by Perez Rubalcava MD at [facility] ENDOSCOPY Social History Tobacco Use Smoking [...] risks discussed with patient. Plan discussed with RETAIL SHIFT SUPERVISOR and attending. Anesthesia Screening documented in this encounter Plan of Treatment Upcoming Encounters Date Type Department Care Team (Late st Contact Info) Description 11/04/2024 1:00 PM EST Office Visit [facility] [place] [address] Pauline Patino APRN [facility] [place] [address] documented as of this encounter Visit Diagnoses Not on filedocumented in this encounter Administered Medications Inactive Administered Medications - up to 3 most recent administrations Medication Order MAR Action Action Date Dose Rate Site ceFAZolin (Ancef) 2 g vial attach to sodium chloride 0.9% 100 mL Mini-Bag Plus 2 g, Intravenous, GLUER TO O.R., 1 dose, On Thu05/06/24 at [...] mg documented in this encounter Care Teams Grinder Tender Relationship Specialty Start Date End Date Kenia Devine MD [address] [place] [address] [place] [address] PCP - General Family Medicine 06/02/22 08/28/24 documented as of this encounter
--- OUTSIDE RECORDS SUMMARY | 2024-10-14 13:10 | XMS_ITS | Encounter Summary ---
Author Organization [facility] [place] [address] Care Team Providers Care Margarine Churn Operator Name Role Phone Kenia Devine MD Primary Care Provider [phone] Encounter Details Date Type Department Care Team (Late st Contact Info) Description 05/27/2022 Telephone [place] [address] Juan J Campbell RN Social History Tobacco [...] Office Visit [facility] [place] [address] Pauline Patino APRN [facility] [place] [address] documented as of this encounter Visit Diagnoses Not on filedocumented in this encounter Care Teams Margarine Churn Operator Relationship Specialty Start Date End Date Kenia Devine MD [address] [place] [address] [place] [address] PCP - General Family Medicine 06/02/22 08/28/24 documented as of this encounter
--- OUTSIDE RECORDS SUMMARY | 2024-10-14 13:10 | XMS_ITS | Encounter Summary ---
Author Organization [facility] Address [facility] [place] [address] Care Team Providers Care Senior Visual Designer Name Role Phone Kenia Devine MD Primary Care Provider [phone] Reason for Visit * Reason Comments Nodule * Consultation (Routine) - Closed Specialty Diagnoses / Procedures Referred By Dasia phelps Referred To Contact Thoracic Surgery Diagnoses Swelling of lymph nodes Isolated enlarged lymph node noted on two subsequent CTs Kenia Devine MD [address] [place] [address] [facility] Thoracic Surg [address] [place] [id number] Referral ID Status Reason Start Date Expiration Date V isits Requested Visits Authorized [id number] Closed Consult, Test & Treat 02/29/2024 02/28/2025 1 1 Encounter Details Date Type Department Care Team (Late st Contact Info) Description 04/21/2024 10:15 AM EDT Office [place] [address] Chace Enriquez MD [facility] [place] [address] Mediastinal mass Social History Tobacco [...] and drinking. Your procedure will occur in secretary receptionist area 4W. Please park in the parking garage and you will come into the medical center on level 4. Go straight, all the way to the end of the simmons, that is Same day surgery wooden desk also secretary receptionist area 4W. In RVATS or robot-assisted video-assisted thoracic surgery, the surgeon controls the camera, light source and surgical tools from a console, with the same degree of flexibility and dexterity as if they were held in the surgeon's hand. The tiny size of the instruments and the precision movement of the robotic arms allow the surgeon to operate in small and [id number] places in the chest cavity, and to [...] stay. You may bring your cellphone, and asbestos shingle roofer, pajama pants and shirts, under garments, comfy [...] Outpatient Consultation Note MD Chace Pickard PA-C [place] [address] Referring Provider: Kenia Devine MD [address] [place] [address] [place] [address] Reason for Consultation: Anterior mediastinal mass Today, 04/21/2024, we saw Mr. Garcia in the Thoracic Surgery Clinic at [facility] in consultation regarding an anterior mediastinal mass [...] and density. Patient was then referred to [facility] Thoracic Surgery for further evaluation. We have personally reviewed the following scans and results that are part of the work up, including: CT Chest on 03/23/2024: CT Chest on 08/18/2023: CT Chest on 04/20/2023: Patient is a former light smoker for about a year during his teens, none since then, denies ETOH / illicit drug use. 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 Hehas had a cholecystectomy and [...] Dr. Enriquez. ELEN Serrato 04/21/[address] [facility] I have seen the patient and reviewed [...] patient including review of records and imaging, [id number] consultation and counseling, interpretation of studies, coordination of care and documentation. Chace Enriquez MD documented in this encounter Plan of Treatment Upcoming Encounters Date Type Department Care Team (Late st Contact Info) Description 11/04/2024 1:00 PM EST Office Visit [place] [address] Pauline Patino APRN [facility] [place] [address] Scheduled Orders Name Type Priority Associated Diagnoses [...] 11:26 AM EDT) Neutrophil % 68.6 % [facility] Neutrophil Absolute 5.00 1.70 - 6.10 x10(3)/mc L [facility] Lymph % 20.5 % [facility] Lymphocytes Abs 1.5 0.9 - 3.2 x10(3)/mc L [facility] Monocyte % 7.7 % [facility] Monocyte Abs 0.6 0.3 - 0.9 x10(3)/mc L [facility] Eos % 1.9 % [facility] Eosinophils Abs 0.1 0.0 - 0.4 x10(3)/[facility] Basophil % 0.5 % [facility] Baso Absolute 0.0 0.0 - 0.1 x10(3)/[facility] Immature Gran % 0.80 % [facility] Comment: Immature granulocytes(IG's)percentage and absolute count will include metamyelocytes, myelocytes, and promyelocytes. Blood smears from CBCs yielding IG's will be scanned manually for concordance. If this scan disagrees with the automated IG or if promyelocytes are noted, a manual differential will be performed. Immature Gran Absolute 0.06(H) 0.00 - 0.04 x10(3)/[facility] Blood 04/21/2024 11:2 6 AM EDT 04/21/2024 11:51 AM EDT Narrative Resulting Agency Comment Spec In Lab Chace Enriquez MD HEMATOLOGY ORDERABL ES [facility] [place] [address] * (ABNORMAL) Hemogram (04/21/2024 11:26 AM EDT) White Blood Cell 7.3 4.0 - 9.5 x10(3)/[facility] Red Blood Cell 4.61 4.58 - 5.54 x10(6)/ L [facility] Hemoglobin 12.7(L) 13.7 - 16.5 g/dL [facility] Hematocrit 38.4(L) 40.5 - 48.5 % [facility] Mean Cell Volume 83.3 82.9 - 93.1 fL [facility] Mean Cell Hemoglobin 27.5 27.5 - 32.1 pg [facility] Mean Cell Hemoglobin Concentration 33.1 32.0 - 35.7 g/dL [facility] Platelet 192 145 - 357 x10(3)/mc L [facility] RDW Standard Deviation 41.3 36.0 - 45.0 [facility] RDW coefficient of variation 13.6 11.4 - 13.8 % [facility] Mean Platelet Volume 12.4 7.6 - 12.9 [facility] NRBC% auto 0.0 % [facility] NRBC Absolute 0.000 0.000 - 0.000 x10(3)/mc L [facility] Blood 04/21/2024 11:2 6 AM EDT 04/21/2024 11:51 AM EDT Narrative Resulting Agency Comment Spec In Lab Chace Enriquez MD HEMATOLOGY ORDERABL ES Performing Organization Address [facility] Co de Phone Number [facility] [place] [address] * TSH (04/21/2024 11:26 AM EDT) [facility] Thyroid Stimulating Hormone 1.94 0.27 - 4.20 mcIU/mL [facility] Comment: Reference Interval (mcIU/mL): Females: ??First Trimester: 0.23-3.88 ??Second Trimester: 0.22-3.90 ??Third Trimester: 0.44-4.66 Blood 04/21/2024 11:2 6 AM EDT 04/21/2024 11:51 AM EDT Narrative Resulting Agency Comment Spec In Lab Chace Enriquez MD CHEMISTRY ORDERABLE S Performing Organization Address [facility] Co de Phone Number [facility] [place] [address] * Acetylcholine Receptor Ab Binding (04/21/2024 11:26 AM EDT) [facility] Achr Binding Ab (MARCH) 0.00 <=0.02 nmol/L [facility] Comment: ADDITIONAL INFORMATION This test was developed and its performance characteristics determined by [facility] in a manner consistent with CLIA requirements. This test has not been cleared or approved by the U.S. Food and Drug Administration. Test Performed by: [facility] - [address] [address] Designated Broker: Felipe Koo M.D. Ph.D.; CLIA# [id number] Blood 04/21/2024 11:2 6 AM EDT 04/21/2024 1:59 PM EDT Narrative Resulting Agency Comment Spec In Lab Chace Enriquez MD LAB SEND OUT BELINDA JAIN [facility] [place] [address] * Beta HCG, quantitative (04/21/2024 11:26 AM EDT) Beta Human Chorionic Gonadotropin, Quantitative <1 0 - 2 mlU/ML [facility] Comment: REFERENCE RANGES NON- FEMALE: ??Less [...] ? 9,040 - 56,451 ?17 weeks ? 8,290 - 37,868 ?18 weeks ? 8,770 - 74,176 This result was generated using a 500Shopsas immunoassay. ??Results obtained from other methods or manufacturers cannot be used interchangeably with this method. Blood 04/21/2024 11:2 6 AM EDT 04/21/2024 11:51 AM EDT Narrative Resulting Agency Comment Spec In Lab Chace Enriquez MD CHEMISTRY ORDERABLE S Performing Organization Address [facility] Co de Phone Number [facility] [place] [address] * Lactate Dehydrogenase (04/21/2024 11:26 AM EDT) Lactate Dehydrogenase 185 110 - 220 unit/L [facility] Blood 04/21/2024 11:2 6 AM EDT 04/21/2024 11:51 AM EDT Narrative Resulting Agency Comment Spec In Lab Chace Enriquez MD CHEMISTRY ORDERABLE S Performing Organization Address [facility] Co de Phone Number [facility] [place] [address] * AFP tumor marker (04/21/2024 11:26 AM EDT) Alpha Fetoprotein <1.9 <=8.3 ng/mL [facility] Comment: This result was generated using a Monalisa Deisy immunoassay. ??Results obtained from other methods or manufacturers cannot be used interchangeably with this method. Blood 04/21/2024 11:2 6 AM EDT 04/21/2024 11:51 AM EDT Narrative Resulting Agency Comment Spec In Lab Chace Enriquez MD CHEMISTRY ORDERABLE S Performing Organization Address [facility] Co de Phone Number [facility] [place] [address] * (ABNORMAL) Comprehensive metabolic panel (non-fasting) (04/21/2024 11:26 AM EDT) Glucose 94 65 - 199 mg/dL [facility] Comment:Diabetes: >=200 mg/d L plus symptoms Blood Urea Nitrogen 17 10 - 20 mg/dL [facility] Creatinine 1.02 0.80 - 1.50 mg/dL [facility] Sodium 142 135 - 145 mmol/L [facility] Potassium 4.7 3.5 - 5.0 mmol/L [facility] Comment: Please note: ??Patients with WBC >100,000 may have falsely elevated Potassium levels. ??For accurate Potassium quantification in these patients send serum separator tube (gold top) for subsequent determinations. ??Contact the Clinical Chemistry Laboratory if there are any questions. Chloride 105 98 - 107 mmol/L [facility] Carbon Dioxide 24 22 - 31 mmol/L [facility] Anion Gap 13 5 - 15 mmol/L [facility] Calcium 9.7 8.5 - 10.5 mg/dL [facility] Protein, Total 7.2 6.1 - 8.0 g/dL [facility] Albumin 4.1 3.2 - 5.2 g/dL [facility] Aspartate Aminotransferase 22 0 - 39 unit/L [facility] Alanine Aminotransferase 31 0 - 55 unit/L [facility] Alkaline Phosphatase 132(H) 40 - 130 unit/L [facility] Bilirubin, Total 0.7 0.2 - 1.3 mg/dL [facility] Est Glomerular Filtration Rate 85 >=60 mL/min/1. 73 m?? [facility] Comment: This patient's estimated GFR [...] Lab Chace Enriquez MD CHEMISTRY ORDERABLE S [facility] [place] [address] documented in this encounter Visit Diagnoses Diagnosis Mediastinal mass Swelling, mass, or lump in chest documented in this encounter Care Teams Senior Visual Designer Relationship Specialty Start Date End Date Kenia Devine MD [address] [place] [address] [place] [address] PCP - General Family Medicine 06/02/22 08/28/24 documented as of this encounter
--- OUTSIDE RECORDS SUMMARY | 2024-10-14 13:10 | XMS_ITS | Encounter Summary ---
Author Organization [facility] [place] [address] Care Team Providers Care Corporate Responsibility Officer Name Role Phone Kenia Devine MD Primary Care Provider [phone] Encounter Details Date Type Department Care Team [...] Office Visit [facility] [place] [address] Pauline Patino, [facility] [place] [address] documented as of this encounter Visit Diagnoses Not on filedocumented in this encounter Care Teams Corporate Responsibility Officer Relationship Specialty Start Date End Date Kenia Devine MD [address] [place] [address] [place] [address] PCP - General Family Medicine 06/02/22 08/28/24 documented as of this encounter
--- OUTSIDE RECORDS SUMMARY | 2024-10-14 13:10 | XMS_ITS | Encounter Summary ---
Author Organization [facility] Address [facility] [place] [address] Care Team Providers Care Yarder Operator Name Role Phone Kenia Devine MD Primary Care Provider [phone] Reason for Visit * Auth/Cert (Routine) Specialty Diagnoses / Procedures Referred By Dasia phelps Referred To Contact Diagnoses Mediastinal mass mediastinal mass Procedures PRO THYMECTOMY, RADICAL MEDIAST DISSSEC PRO BRONCHOSCOPY, DIAGNOSTIC @ROBOTIC THYMECTOMY W/ RAD. MEDIASTINAL DISSECTION (WRVU 23.48) BRONCHOSCOPY, DIAGNOSTIC (WRVU 2.53) MODIFIER ROBOT,Chace Burton MD [facility] [place] [address] [facility] Referral ID Status Reason Start Date Expiration Date Visits Re quested Visits Authorized [id number] 1 1 Encounter Details Date Type Department Care Team (Late st Contact Info) Description 05/06/2024 1:15 PM EDT - 05/06/2024 4:42 PM EDT [place] [id number] Chace Grijalva MD [facility] [place] [address] @ROBOTIC THYMECTOMY W/ RAD. MEDIASTINAL DISSECTION (WRVU 23.48) Social History Tobacco Use Types Packs/Day Years Used Date Smoking Tobacco: Never Smokeless Tobacco: Never Alcohol Use Standard Drinks/Week Comments Not Currently 0 (1 standard drink = 0.6 oz pur e alcohol) [facility] Inpatient Questions Answer Date Recorded Does [...] Primary * Renetta Chaparro PA - Physician Legal Records Clerk Procedure: Procedure(s): @ROBOTIC THYMECTOMY W/ RAD. MEDIASTINAL DISSECTION (WRVU 23.48) BRONCHOSCOPY, DIAGNOSTIC (WRVU 2.53) MODIFIER ROBOT,DAVINCI XI Other Major Procedures: None History of Presentation-taken from H&P on 04/21/24: Today, 04/21/2024, we saw Mr. Garcia in the Thoracic Surgery Clinic at [facility] in consultation regarding an anterior mediastinal mass [...] and density. Patient was then referred to [facility] Thoracic Surgery for further evaluation Hospital Course: Joe Garcia was admitted to [facility] on 05/06/2024 via the Same Day [...] he had met all [facility]. Pain was controlled on oral medications. He [...] 05/06/2024 7:01 PM) Result Value WORKSTATION ID [id number] Impression 1. Possible trace left apical pneumothorax. 2. Low lung volumes with bronchovascular crowding. Thank you for letting us participate in the care of this patient. If you are a health care provider and have any questions regarding this report, please contact the number below. For patients who have questions please contact the health healthcare administrative assistant that requested your imaging first. Electronically signed by: Chace Johnson MD, [facility] ([phone]), at 05/06/2024 7:27 PM Pending Studies and [...] a nurse in the Thoracic Clinic at [phone]. For emergencies after hours, on weekends or holidays please call: [phone] and ask to speak to the Thoracic Surgeon inclusion manager. Exercise & Activity Level: As you recover [...] please call the thoracic surgery clinic at [phone]. Driving: No driving for 1 week or [...] Thoracic Surgery Clinic or the Thoracic Surgeon inclusion manager after hours. Please take over the counter [...] Expires XR Chest PA & Lateral (Generic) [[id number] Custom] 05/21/2024 11/06/2024 Process Instructions: Scheduling Instructions: Questions: Portable exam?: Reason for exam and clinical history: s/p LEFT VATS thymectomy Clinical information / nicolas questions for radiologist: Stat read required?: Date of injury if applicable: Requested Time: Where will study be performed?: [facility] Radiology Provider Contact Information: Primary Care Provider: Kenia Devine MD [phone] Discharge References/Attachments: Discharge References/Attachments None For questions [...] a nurse in the Thoracic Clinic at [phone]. For emergencies after hours, on weekends or holidays please call: [phone] and ask to speak to the Thoracic Surgeon inclusion manager. Exercise & Activity Level: As you recover [...] please call the thoracic surgery clinic at [phone]. Driving: No driving for 1 week or [...] Thoracic Surgery Clinic or the Thoracic Surgeon inclusion manager after hours. Please take over the counter [...] Oral Tablet 5 mg (OXYCODONE - ORAL) (Estonian) documented in this encounter Medications at Time [...] FOR 09/26/2021 10/10/2024 SUMAtriptan (IMITREX) 20 mg/actuation [place], Non-Aerosol as needed. 01/23/2022 10/10/2024 escitalopram (Lexapro) [...] 03/30/2018 10/10/2024 documented as of this encounter Progress Notes * Tameka Fang RN - 05/07/2024 9:06 AM EDT Patient discharged home. Patient stable, no complains at this time. All discharged instructions reviewed with patient. All questions answered. IV removed, dry dressing applied. 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 * Shanice Bhatt MD - 05/06/2024 9:55 PM EDT [facility] Department of Thoracic Surgery Inpatient Post Op Check Patient Name: Joe Garcia Patient : 1965 Patient Patient Location: [address] Attending Surgeon: CHACE GRIJALVA ID: Joe [...] Admission (Current) from 05/06/2024 in PACU at [facility] OfficeVisit from 04/21/2024 in Thoracic Surgery at [facility] Weight 120.7 kg (266 lb) 1 05/06/2024 [...] View Result Value Ref Range WORKSTATION ID [id number] Diagnostics: 1. Possible trace left apical pneumothorax. [...] Bhatt MD 05/06/2024 Thoracic Surgery Service Pager [phone] * Tarsha Faustin RN - 05/06/2024 5:43 [...] 4.67) performed by Perez Rubalcava MD at [facility] ENDOSCOPY PRO ENDOSCOPIC US EXAM, ESOPH N/A 01/09/2021 UPPER EUS- ENDOSCOPIC ULTRASOUND performed by Zhen Carnes MD at [facility] ENDOSCOPY PRO ENDOSCOPIC WRIST SURG RELEASE TRANSVERSE CARPAL LIGAMENT Right 01/31/2022 ENDOSCOPY WRIST W/ RELEASE TRANSVERSE CARPAL LIGAMENT (WRVU 6.39) performed by Long Kinney MDat [facility] OSC PRO UPPER GI ENDOSCOPY, BIOPSY N/A 08/31/2020 EGD WITH BIOPSY (WRVU 2.49) performed by Perez Rubalcava MD at [facility] ENDOSCOPY MEDS: No current facility-administered medications on [...] 1 TABLET FOR SUMAtriptan (IMITREX) 20 mg/actuation [place], Non-Aerosol as needed. baclofen (Lioresal) 10 mg [...] ELEN Serrato 05/06/2024 Thoracic Surgery Service Pager [phone] Associated attestation - Chace Grijalva MD - 05/06/2024 1:37 PM EDT I have seen the patient and reviewed the PA's above note and I agree with the details as written. Ihave personally reviewed the relevant imaging. The assessment and plan were formulated in discussion with me and I agree with them as documented. Chace Grijalva MD 05/06/2024 documented in this encounter Miscellaneous Notes * Plan of Care - Tameka Fang, ISREAL - 05/07/2024 8:57 AM EDT Problem: Adult [...] Grijalva MD - 05/06/2024 2:15 PM EDT [facility] Operative Note Patient Name: Joe Garcia : [id number] MR#: [id number] Case Date: 05/06/2024 Surgeon: Surgeons and Role: * Chace Grijalva MD - Primary * Renetta Chaparro PA - Physician Legal Records Clerk * Tamir Guerrero MD Preoperative diagnosis: mediastinal mass Postoperative diagnosis: mediastinal mass Procedure(s) (LRB): @ROBOTIC THYMECTOMY W/ RAD. MEDIASTINAL DISSECTION (WRVU 23.48) (Left) BRONCHOSCOPY, DIAGNOSTIC (WRVU 2.53) (N/A) MODIFIER ROBOT,DAVINCI XI (N/A) Modifiers: 22: Increased procedural services [...] margin, cauterized [place] lateral [place] 11 [address]20 mediastinal mass Left superior lateral margin, cauterized area is lateral excision 05/06/2024 4:04 PM Time specimen removed from patient: 4:04 PM Number of tissue samples (in container) 1 SPECIMEN TO PATHOLOGY Anterior mediastinal inferior fat OR 11 09962 mediastinal mass Anterior mediastinal inferior fat excision 05/06/2024 4:18 PM Time specimen removed from patient: 4:17 PM Number of tissue samples (in container) 1 SPECIMEN TO PATHOLOGY radical thymectomy, short stitch superior; long stitch left lateral OR 11 32201 mediastinal mass radical thymectomy, short stitch superior; [...] placed in standard fashion. A 12 mm program services assistant port was placed under direct vision. [...] size of the specimen, the 12 mm program services assistant port was upsized to a 15 [...] bleeding from the port sites. A 28 Maltese chest tube was placed through the initial [...] Office Visit [place] [address] Pauline Patino APRN [facility] [place] [address] documented as of this encounter Procedures Procedure [...] 1:40 PM EDT Mediastinal mass Bronchoscopy, Diagnostic (15099) 05/06/2024 1:40 PM EDT Mediastinal mass Thymectomy, Radical Mediast Disssec (38292) 05/06/2024 1:40 PM EDT Mediastinal mass ROBOTIC THYMECTOMY W/ RAD. MEDIASTINAL DISSECTION Routine 05/06/2024 12:04 PM EDT Mediastinal mass BRONCHOSCOPY,DIAGNOSTIC Routine 05/06/20 12:04 PM EDT Mediastinal mass documented in this encounter Results * XR Chest PA & Lateral (Generic) (05/26/2024 11:11 AM EDT) WORKSTATION ID [id number] RAD Anatomical Region Laterality Modality Chest N/A Digital Radiogra phy Impressions 05/26/2024 4:06 PM EDT No acute findings . Resolution of postoperative findings Thank you for letting us participate in the care of this patient. ??If you are a health care provider and have any questions regarding this report, please contact the number below. ??For patients who have questions please contact the health healthcare administrative assistant that requested your imaging first. ? Narrative [...] patients who have questions please contactthe health healthcare administrative assistant that requested your imaging first. Electronically signed by: Kailee Underwood MD, [facility]([phone]), at 05/26/2024 4:06 PM Chace Grijalva MD IMG DX ORDERABLES * XR Chest One View (05/06/2024 7:01 PM EDT) WORKSTATION ID [id number] RAD Anatomical Region Laterality Modality Chest N/A [...] who have questions please contact the health healthcare administrative assistant that requested your imaging first. ? Electronically signed by: Chace Johnson MD, [facility] ([phone]), at 05/06/2024 7:27 PM Narrative 05/06/2024 7:27 [...] patients who have questions please contactthe health healthcare administrative assistant that requested your imaging first. Electronically signed by: Chace Johnson MD, [facility]([phone]), at 05/06/2024 7:27 PM Chace Grijalva MD IMG DX ORDERABLES * Specimen to Pathology (05/06/2024 4:45 PM EDT) AP Specimen 05/06/2024 4:45 PM EDT 05/06/2024 4:[address] [facility] - 05/06/2024 4:45 PM EDT Specimen requisition ordered. ??Separate Pathology report to follow Chace Grijalva MD PATHOLOGY/CYTOLOGY ORDERABLES [facility] [place] [address] * Flow Cytometry Report (05/06/2024 4:44 PM EDT) Flow Cytometry Report [id number] ? Location: PACU; [address] The signing pathologist has (i) examined the relevant preparation(s) for the specimen(s) and (ii) rendered or confirmed the diagnosis(es). . ?Flow Cytometry DIAGNOSIS Flow cytometric diagnosis: T cells with variable antigen expression. NOTE : Thus may represent normal antigen expression profile of thymic lymphocytes. ??Please see morphology report for final delineation. Electronically signed by: ?Iona CONNER, Chris Verified: ??05/09/2024 18:59 ??Hematopathologist Performed at: ??-[facility] Dept. of Pathology, [place] [address] Brake Operator Sheet Metal: Inna Khan MD, FCAP, ??CLIA Certificate: [id number] DISCUSSION Blasts based on CD45 expression and [...] express Cd10 There is no increase in AR40-ybdkcnuq/ CD3-neg NK cells. Flow analysis is an ancillary study. A definite diagnosis requires correlation with the morphologic features of this process and if necessary, correlation with other ancillary studies like immunohistochemistr y, enzyme cytochemistry and/or cyto/ molecular genetics. This test was developed and its performance characteristics determined by the Clinical Flow Cytometry Laboratory at [facility]. It has not been cleared or approved [...] high complexity clinical laboratory testing. SPECIMEN PROCESSING [id number] Cells for immunophenotypic analysis were derived from [...] PM EDT Chace Grijalva MD PATHOLOGY/CYTOLOGY ORDERABLES [facility] [place] [address] * Immunophenotyping Flow Cytometry (05/06/2024 4:44 PM EDT) Immunophenotyping Flow See Comment [facility] Comment: When completed by the Pathologist, the Flow Cytometry Report ([id number]) will display under the Pathology Results section within eDH. Other Other / Unknown 05/06/2024 4 :44 PM EDT 05/06/2024 5:33 PM EDT Narrative Resulting Agency Comment Spec In Lab Authorizing Provider Result Andrzej Grijalva MD HEMATOLOGY ORDERABL ES Performing Organization Address [facility] Co de Phone Number [facility] [place] [address] * Specimen to Pathology (05/06/2024 4:18 PM EDT) AP Specimen 05/06/2024 4:18 PM EDT 05/06/2024 4:[address] [facility] - 05/06/2024 4:18 PM EDT Specimen requisition ordered. ??Separate Pathology report to follow Chace Grijalva MD PATHOLOGY/CYTOLOGY ORDERABLES Performing Organization Address [facility] de Phone Number [facility] [place] [address] * (ABNORMAL) Surgical Pathology Report (05/06/2024 4:05 PM EDT) Final Diagnosis [id number] ? Location: PACU; [facility]; The signing pathologist has (i) examined the [...] Verified: ??05/16/2024 9:56 ?? Pathologist Performed at: ??-[facility] Dept. of Pathology, [place] [address] Brake Operator Sheet Metal: Inna Khan MD, AP, ??[facility] Certificate: [id number] SYNOPTIC Specimen ? Procedure: ??Thymectomy Tumor ? [...] lymph nodes are grossly identified. Sections/Processi ng: Broker Assistant sections in 1 cassette labeled B1. C [...] measuring up to 1.8 cm Sections/Processi ng: Broker Assistant sections in 11 cassettes as follows: ?C1-C2: ??Mass with lateral-yellow and posterior-black ?C3-C4: ??Mass with posterior-black ?C5: ??Mass with posterior-black/l ateral-yellow/ant erior-blue ?C6: ??Superior-orange margin, perpendicular sections ?C7: ??Medial-red margin, perpendicular section ?C8: ??Inferior-green margin with anterior-blue/pos terior-black, perpendicular ? section ?C9: ??Single trisected lymph node ?C10: ??Single intact lymph node ?C11: ??Single intact candidate lymph ??ajw(A) 05/16/2024 9:[address] [facility] THYMUS GLAND STRUCTURE / Unknown 05/06/2024 4:05 PM EDT 05/06/2024 4:05 PM EDT SOFT TISSUE MASS / Unknown 05/06/2024 4:05 PM EDT 05/06/2024 4:05 PM EDT THYMUS GLAND STRUCTURE / Unknown 05/06/2024 4:05 PM EDT 05/06/2024 4:05 PM EDT Chace Grijalva MD PATHOLOGY/CYTOLOGY ORDERABLES [facility] [place] [address] * Specimen to Pathology (05/06/2024 4:05 PM EDT) AP Specimen 05/06/2024 4:05 PM EDT 05/06/2024 4:[address] [facility] - 05/06/2024 4:05 PM EDT Specimen requisition ordered. ??Separate Pathology report to follow Chace Grijalva MD PATHOLOGY/CYTOLOGY [place] [address] documented in this encounter Visit Diagnoses Diagnosis [...] Until 05/07/24 at 1205, Intra-Operative (Intra-Procedure), Routine Given 05/06/2024 [...] mL Mini-Bag Plus (COMPLETED) 2 g, Intravenous, SCOOP DRIVER TO O.R., 1 dose, On Thu05/06/24 at [...] injection 5,000 Units (COMPLETED) 5,000 Units, Subcutaneous, SCOOP DRIVER TO O.R., 1 dose, On Thu05/06/24 at [...] Discontinued, Routine 0140 (Given - Provid er: Daneila Camarillo RN)1000 (Due) ketorolac (Toradol) (15 mg/mL) [...] mg, Oral, EVERY EVENING, First dose on Thu05/07/24 at 1700, Until Discontinued, Routine sodium chloride 0.9 % (flush) (BD PosiFlush Normal Saline 0.9) flush 5 mL 5 mL, Intravenous, 2 TIMES DAILY, First dose on 05/07/24 at 0145, Until Discontinued, Recovery (Recovery-Hospital Unit), Routine 0138 (Given - Provid er: Daniela Camarillo RN)0842 (Given - Provider: Tameka Fang RN) tamsulosin (Flomax) capsule 0.4 mg 0.4 mg, [...] Unit) 1809 (New Bag - Provider: Brittaney Campos RN) PRN Medication Order 05/05/2024 05/06/2024 05/07/2024 BUpivacaine [...] PACU Recovery 1833 (Given - Provider: Kati Campos RN)1914 (Given - Provider: Tarsha Faustin, RN) ondansetron [...] zofran, Routine 2019 (Given - Provider: Daniela Camarillo RN) sodium chloride 0.9 % (flush) (BD PosiFlush Normal Saline 0.9) flush 5-20 mL 5-20 mL, Intravenous, EVERY 1 MIN PRN, Starting on 05/07/24 at 0128, Until 05/07/24 at 1205, flush, Flush pertains to all indwelling lines. Flush per protocol found in the job aid using the link provided on this medication record., Recovery (Recovery-Hospital Unit), Routine documented in this encounter Care Teams Yarder Operator Relationship Specialty Start Date End Date Kenia Devine MD [address] [place] [address] [place] [address] PCP - General Family Medicine 06/02/22 08/28/24 documented as of this encounter
--- OUTSIDE RECORDS SUMMARY | 2024-10-14 13:10 | XMS_ITS | Encounter Summary ---
Author Organization [facility] [place] [address] Care Team Providers Care Harpsichord Maker Name Role Phone Senthil Mitchell MD Primary Care Provider + Encounter Details Date Type Department Care Team (Late st Contact Info) Description 01/03/2022 5:05 PM EST Ancillary Procedure Radiology Library [place] [facility] [place] [address] Senthil Mitchell MD [address] [place] [address] Social History Tobacco Use Types Packs/Day [...] Office Visit [facility] at [facility] [place] [phone] Pauline Patino, [facility] PAIN [place] [address] documented as of this encounter Procedures Procedure Name Priority Date/Time Associated Diagnosis Comments FILM LIBRARY STORAGE ONLY CT ABDOMEN AND PELVIS Routine 01/03/2022 5:01 PM EST documented in this encounter Results * Film Library- Storage Only CT Abdomen & Pelvis (01/03/2022 5:01 PM EST) Narrative RAD - 01/03/2022 5:01 PM EST This exam is auto-finalizing. It's purpose is for storage only. Senthil Mitchell MD IMG FILM LIBRARY ORDERABLES [place], [place] documented in this encounter Visit Diagnoses Not on filedocumented in this encounter Care Teams Harpsichord Maker Relationship Specialty Start Date End Date Senthil Mitchell MD [address] [place] [address] [place] [address] PCP - General Family Medicine 12/23/21 06/01/22 documented as of this encounter
--- OUTSIDE RECORDS SUMMARY | 2024-10-14 13:10 | XMS_ITS | Encounter Summary ---
Author Organization [facility] [place] [address] Care Team Providers Care Technical Illustrations Map Inker Name Role Phone Estefani Nicole MD Primary Care Provider + Reason for Referral * Consultation (Routine) - Closed Specialty Diagnoses / Procedures Referred By Dasia phelps Referred To Contact Neurology Diagnoses Cyclical vomiting without status migrainosus, not intractable Other migraine without status migrainosus, not intractable Maria Del Carmen Lutz APRN [address] [place] [address] [facility] Neurology [address] [place] [phone] Referral ID Status Reason Start Date Expiration Date V isits Requested Visits Authorized [id number] Closed Consult, Test & Treat 04/23/2021 04/23/2022 1 1 Encounter Details Date Type Department Care Team (Late st Contact Info) Description 04/23/2021 10:00 AM EDT Office [place] [address] Maria Del Carmen Lutz APRN [address] [place], [place] [id number] Cyclical vomiting without status migrainosus, not intractable; [...] APRN + Maria Del Carmen Lutz APRN [facility] What is Cyclic [...] is a small proportion of patients but stretcher helper symptoms are expected in most patients. ??? [...] usage of anti-emetics or other abortive therapies. epidemiologist daily usage of these medications has not [...] cyclic vomiting syndrome in adults by the [place] [employer]gastro[employer] and the Cyclic Vomiting Syndrome Association. Neruogastroenterology & Motility. 2019;31(Suppl. 2):k98853 documented in this encounter Progress Notes * Maria Del Carmen Lutz APRN - 04/23/2021 10:00 AM EDT GASTROENTEROLOGY TELEMEDICINE PROGRAM - ESTABLISHED PATIENT VISIT Chief Complaint: Joe Garcia is a [address] y[address] Nicole here for follow-up of [facility] Detailed history: Joe Garcia is a 55 y.o. male with a history significant for depression/anxiety (managed by Dr. Collins [facility] in [place]), and asthma. He was initially seen by me in 06/03/18 following a several year history of nausea with vomiting. He subsequently underwent a EGD at [facility] showing concern for pyloric stenosis. Dilitation was done. During our appointment on 12/06/19 he had persistent vomiting episodes prior to the EGD. I recommended a repeat EGD. During his appointment on 06/29/2020, he endorsed a recent EGD at [facility]. He continued to have vomiting every [...] history that includes Upper Gi Endoscopy, Biopsy ([id number])(N/A, 08/31/2020); Colonoscopy, Rocco Peralta ([id number]) (N/A, 08/31/2020); and Endoscopic Us Exam,Susan ([id number]) (N/A, 01/09/2021). Family History: family history is [...] standpoint as determined by the PCP; try hlr-ks-z-time for at least ~90 days each before [...] Gastroenterology. 2018;154:65-76 Maria Del Carmen Lutz APRN [facility] [place] [address] documented in this encounter Plan of Treatment Upcoming Encounters Date Type Department Care Team (Late st Contact Info) Description 11/04/2024 1:00 PM EST Office Visit [place] [address] Pauline Patino APRN [facility] [address] Scheduled Referrals Name Type Priority Associated Diagnoses [...] stomach documented in this encounter Care Teams Technical Illustrations Map Inker Relationship Specialty Start Date End Date Estefani Nicole MD [address] [place] [address] PCP - General Family Medicine 10/19/19 12/22/21 documented as of this encounter
--- OUTSIDE RECORDS SUMMARY | 2024-10-14 13:10 | XMS_ITS | Encounter Summary ---
Author Organization [facility] [place] [address] Care Team Providers Care Machine Shop Worker Name Role Phone Senthil Mitchell MD Primary Care Provider + Encounter Details Date Type Department Care Team (Late st Contact Info) Description 02/17/2022 Telephone Gastroenterology at [facility] [place] [phone] Brittaney Colon RN Social History Tobacco Use [...] medication. Call placed to patient to follow-up. MM requesting call back. documented in this encounter Plan of Treatment Upcoming Encounters Date Type Department Care Team (Late st Contact Info) Description 11/04/2024 1:00 PM EST Office Visit [facility] [place] [address] Pauline Patino APRN [facility] [address] documented as of this encounter Visit Diagnoses Not on filedocumented in this encounter Care Teams Machine Shop Worker Relationship Specialty Start Date End Date Senthil Mitchell MD [address] [place] [address] [place] [address] PCP - General Family Medicine 12/23/21 06/01/22 documented as of this encounter
--- OUTSIDE RECORDS SUMMARY | 2024-10-14 13:10 | XMS_ITS | Encounter Summary ---
Author Organization [facility] Address [facility] [place] [address] Care Team Providers Care Transcriber Name Role Phone Senthil Mitchell MD Primary Care Provider + Encounter Details Date Type Department Care Team (Late st Contact Info) Description 02/25/2022 11:00 AM EDT Office Visit Neurosurgery at [facility] [place] [address] Julián Sawyer PA [facility] [place] [address] Intracranial arachnoid cysts Social History Tobacco Use [...] : 1965 PCP: Senthil Mitchell MD REF: Sentihl Mitchell Date of Service: 02/25/2022 CHIEF COMPLAINT: [...] up prn Julián Sawyer PA-C, MS Physician Dependency Case Manager Section of Neurosurgery [address] [address] documented in this encounter Plan of Treatment Upcoming Encounters Date Type Department Care Team (Late st Contact Info) Description 11/04/2024 1:00 PM EST Office Visit [facility] [place] [address] Pauline Patino APRN [facility] [place] [address] documented as of this encounter Visit Diagnoses Diagnosis Intracranial arachnoid cysts Cerebral cysts documented in this encounter Care Teams Transcriber Relationship Specialty Start Date End Date Senthil Mitchell MD [address] [place] [address] JASON BURDICK [address] PCP - General Family Medicine 12/23/21 06/01/22 documented as of this encounter
--- OUTSIDE RECORDS SUMMARY | 2024-10-14 13:10 | XMS_ITS | Encounter Summary ---
Author Organization [facility] [place] [address] Care Team Providers Care Railway Shunter Name Role Phone Kenia Devine MD Primary Care Provider [phone] Encounter Details Date Type Department Care Team (Late st Contact Info) Description 08/18/2023 Ancillary Procedure Radiology Library at [facility] [place] [id number] Kenia Devine MD [address] [place] [id number] Social History Tobacco Use Types Packs/Day [...] Spine Center at [facility] [place] [phone] Pauline Patino APRN [facility] [address] documented as of this encounter Procedures Procedure Name Priority Date/Time Associated Diagnosis Comments FILM LIBRARY STORAGE ONLY CT CHEST Routine 08/18/2023 12:00 AM EDT documented in this encounter Results * Film Library- Storage Only CT Chest (08/18/2023 12:00 AM EDT) Narrative RAD - 02/26/2024 11:00 AM EDT This exam is auto-finalizing. It's purpose is for storage only. Kenia Devine MD IMG FILM LIBRARY OR DERABLES STAC[place], [place] documented in this encounter Visit Diagnoses Not on filedocumented in this encounter Care Teams Railway Shunter Relationship Specialty Start Date End Date Kenia Devine MD [address] [place] [address] [place] [address] PCP - General Family Medicine 06/02/22 08/28/24 documented as of this encounter
--- OUTSIDE RECORDS SUMMARY | 2024-10-14 13:10 | XMS_ITS | Encounter Summary ---
Author Organization [facility] Address [facility] [place] [address] Care Team Providers Care Chemical Handler Name Role Phone Senthil Mitchell MD Primary Care Provider + Reason for Visit * Reason Onset Date Comments Disability Paperwork 03/27/2022 Encounter Details Date Type Department Care Team (Late st Contact Info) Description 03/27/2022 Telephone [place] [phone] Long Kinney MD [facility] DR [place] [address] Disability Paperwork Social History Tobacco Use Types [...] Office Visit [facility] [place] [address] Pauline Patino, COMBINATION MAN [facility] [place] [address] documented as of this encounter Visit Diagnoses Not on filedocumented in this encounter Care Teams Chemical Handler Relationship Specialty Start Date End Date Senthil Mitchell MD [address] [place] [address] [place] [address] PCP - General Family Medicine 12/23/21 06/01/22 documented as of this encounter
--- OUTSIDE RECORDS SUMMARY | 2024-10-14 13:10 | XMS_ITS | Encounter Summary ---
Author Organization [facility] [place] [address] Care Team Providers Care Group Captain Name Role Phone Kenia Devine MD Primary Care Provider [phone] Encounter Details Date Type Department Care Team (Late st Contact Info) Description 04/22/2024 Telephone [place] [address] Meghan Victoria, RN Social History Tobacco Use [...] his labs. I also instructed him that [facility] have one lab result pending and we will update him at a later time! Joe told me he is scheduled for his PFTs at [facility] on the documented in this encounter Plan of Treatment Upcoming Encounters Date Type Department Care Team (Late st Contact Info) Description 11/04/2024 1:00 PM EST Office Visit [facility] [place] [phone] Pauline Patino, [facility] [place] [address] documented as of this encounter Visit Diagnoses Not on filedocumented in this encounter Care Teams Group Captain Relationship Specialty Start Date End Date Kenia Devine MD [address] [place] [address] PCP - General Family Medicine 06/02/22 08/28/24 documented as of this encounter
--- OUTSIDE RECORDS SUMMARY | 2024-10-14 13:10 | XMS_ITS | Encounter Summary ---
Author Organization [facility] [place] [address] Care Team Providers Care Rehab Manager Name Role Phone Kenia Devine MD Primary Care Provider [phone] Encounter Details Date Type Department Care Team (Late st Contact Info) Description 03/09/2024 Ancillary Procedure Radiology Library at [facility] [place] [phone] Kenia Devine MD [address] [place] [address] Social History Tobacco Use Types Packs/Day [...] [facility] [place] [phone] Pauline Patino APRN [facility] [place] [address] documented as of this encounter Procedures Procedure Name Priority Date/Time Associated Diagnosis Comments FILM LIBRARY STORAGE ONLY CT CHEST Routine 03/09/2024 12:00 AM EDT documented in this encounter Results * Film Library- Storage Only CT Chest (03/09/2024 12:00 AM EDT) Narrative RAD - 03/11/2024 12:26 PM EDT This exam is auto-finalizing. It's purpose is for storage only. Kenia Devine MD IMG FILM LIBRARY OR DERABLES STACY [place], [place] documented in this encounter Visit Diagnoses Not on filedocumented in this encounter Care Teams Rehab Manager Relationship Specialty Start Date End Date Kenia Devine MD [address] [place] [address] [place] [address] PCP - General Family Medicine 06/02/22 08/28/24 documented as of this encounter
--- OUTSIDE RECORDS SUMMARY | 2024-10-14 13:10 | XMS_ITS | Encounter Summary ---
Author Organization [facility] [place] [address] Care Team Providers Care Chef French Name Role Phone Kenia Devine MD Primary Care Provider [phone] Encounter Details Date Type Department Care Team (Late st Contact Info) Description 04/26/2024 Telephone [place] [phone] Meghan Victoria, RN Social History Tobacco Use [...] Office Visit [facility] [place] [address] Pauline Patino APRN [facility] [place] [address] documented as of this encounter Visit Diagnoses Not on filedocumented in this encounter Care Teams Chef French Relationship Specialty Start Date End Date Kenia Devine MD [address] [place] [address] [place] [address] PCP - General Family Medicine 06/02/22 08/28/24 documented as of this encounter
--- OUTSIDE RECORDS SUMMARY | 2024-10-14 13:10 | XMS_ITS | Encounter Summary ---
[place] [address] Care Team Providers Care Canoe Inspector Name Role Phone Kenia Devine MD Primary Care Provider [phone] Reason for Referral * Allergy Testing (Routine) - Closed Specialty Diagnoses / Procedures Referred By Dasia phelps Referred To Contact Diagnoses Vomiting, unspecified vomiting type, unspecified whether nausea present Maria Del Carmen Lutz APRN [address] [place] [address] Referral ID Status Reason Start Date Expiration Date V isits Requested Visits Authorized [id number] Closed Consult, Test & Treat 07/16/2022 01/12/2023 1 1 Encounter Details Date Type Department Care Team (Late st Contact Info) Description 07/16/2022 Orders [place] [address] Maria Del Carmen Lutz APRN [address] [place] [address] Vomiting, unspecified vomiting type, unspecified whether nausea [...] Office Visit [facility] [place] [address] Pauline Patino, STAC[facility] [place] [address] Scheduled Referrals Name Type Priority Associated Diagnoses Orde r Schedule Referral to Allergy Outpatient Referral Routine Vomiting, Unspecified Vomiting Type, Unspecified Whether Nausea Present Ordered: 07/16/2022 documented as of this encounter Visit Diagnoses Diagnosis Vomiting, unspecified vomiting type, unspecified whether nausea present documented in this encounter Care Teams Canoe Inspector Relationship Specialty Start Date End Date Kenia Devine MD [address] [place] [address] [place] [address] PCP - General Family Medicine 06/02/22 08/28/24 documented as of this encounter
--- OUTSIDE RECORDS SUMMARY | 2024-10-14 13:10 | XMS_ITS | Encounter Summary ---
Author Organization [facility] [place] [address] Care Team Providers Care Grinding And Spraying Supervisor Name Role Phone Kenia Devine MD Primary Care Provider [phone] Reason for Visit * Auth/Cert (Routine) Specialty Diagnoses / Procedures Referred By Dasia phelps Referred To Contact Diagnoses Mediastinal mass mediastinal mass Procedures PRO THYMECTOMY, RADICAL MEDIAST DISSSEC PRO BRONCHOSCOPY, DIAGNOSTIC @ROBOTIC THYMECTOMY W/ RAD. MEDIASTINAL DISSECTION (WRVU 23.48) BRONCHOSCOPY, DIAGNOSTIC (WRVU 2.53) MODIFIER ROBOT,DAVINCI Chace Valencia MD [facility] [place] [address] [facility] Referral ID Status Reason Start Date Expiration Date Visits Re quested Visits Authorized [id number] 1 1 Encounter Details Date Type Department Care Team (Latest Contact Info) Description 05/06/2024 11:54 AM EDT - 05/07/2024 10:05 AM EDT Hospital [place] [address] Chace Grijalva MD [facility] [place] [address] Mediastinal mass Discharge Disposition: Home Social History [...] Primary * Renetta Chaparro PA - Physician Radial Drill Operator For Plastic Procedure: Procedure(s): @ROBOTIC THYMECTOMY W/ RAD. MEDIASTINAL DISSECTION (WRVU 23.48) BRONCHOSCOPY, DIAGNOSTIC (WRVU 2.53) MODIFIER ROBOT,DAVINCI XI Other Major Procedures: None History of Presentation-taken from H&P on 04/21/24: Today, 04/21/2024, we saw Mr. Garcia in the Thoracic Surgery Clinic at [facility] in consultation regarding an anterior mediastinal mass [...] and density. Patient was then referred to [facility] Thoracic Surgery for further evaluation Hospital Course: Joe Garcia was admitted to [facility] on 05/06/2024 via the Same Day [...] he had met all criteria for discharge [place]. Pain was controlled on oral medications. He [...] 05/06/2024 7:01 PM) Result Value WORKSTATION ID [id number] Impression 1. Possible trace left apical pneumothorax. 2. Low lung volumes with bronchovascular crowding. Thank you for letting us participate in the care of this patient. If you are a health care provider and have any questions regarding this report, please contact the number below. For patients who have questions please contact the health farm or ranch animal caretaker that requested your imaging first. Pending Studies and Lab Data: The patient [...] a nurse in the Thoracic Clinic at [phone]. For emergencies after hours, on weekends or holidays please call: [phone] and ask to speak to the Thoracic Surgeon commissioned sales associate. Exercise & Activity Level: As you recover [...] please call the thoracic surgery clinic at [phone]. Driving: No driving for 1 week or [...] Thoracic Surgery Clinic or the Thoracic Surgeon commissioned sales associate after hours. Please take over the counter [...] Expires XR Chest PA & Lateral (Generic) [[id number] Custom] 05/21/2024 11/06/2024 Process Instructions: Scheduling Instructions: Questions: Portable exam?: Reason for exam and clinical history: s/p LEFT VATS thymectomy Clinical information / nicolas questions for radiologist: Stat read required?: Date of injury if applicable: Requested Time: Where will study be performed?: [facility] Radiology Provider Contact Information: Primary Care Provider: Kenia Devine MD [phone] Discharge References/Attachments: Discharge References/Attachments None For questions [...] a nurse in the Thoracic Clinic at [phone]. For emergencies after hours, on weekends or holidays please call: [phone] and ask to speak to the Thoracic Surgeon commissioned sales associate. Exercise & Activity Level: As you recover [...] please call the thoracic surgery clinic at [phone]. Driving: No driving for 1 week or [...] Thoracic Surgery Clinic or the Thoracic Surgeon commissioned sales associate after hours. Please take over the counter [...] Oral Tablet 5 mg (OXYCODONE - ORAL) (Citizen Of [place]) documented in this encounter Medications at Time [...] FOR 09/26/2021 10/10/2024 SUMAtriptan (IMITREX) 20 mg/actuation Danforth, Non-Aerosol as needed. 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 * Shanice Bhatt MD - 05/06/2024 9:55 PM EDT [facility] Department of Thoracic Surgery Inpatient Post Op Check Patient Name: Joe Garcia Patient : 1965 Patient Patient Location: [address] Attending Surgeon: CHACE GRIJALVA ID: Joe [...] Admission (Current) from 05/06/2024 in PACU at [facility] OfficeVisit from 04/21/2024 in Thoracic Surgery at [facility] Weight 120.7 kg (266 lb) 1 05/06/2024 [...] View Result Value Ref Range WORKSTATION ID [id number] Diagnostics: 1. Possible trace left apical pneumothorax. [...] Bhatt MD 05/06/2024 Thoracic Surgery Service Pager [phone] * Tarsha Faustin RN - 05/06/2024 5:43 [...] 4.67) performed by Perez Rubalcava MD at [facility] ENDOSCOPY PRO ENDOSCOPIC US EXAM, ESOPH N/A 01/09/2021 UPPER EUS- ENDOSCOPIC ULTRASOUND performed by Zhen Carnes MD at [facility] ENDOSCOPY PRO ENDOSCOPIC WRIST SURG RELEASE TRANSVERSE CARPAL LIGAMENT Right 01/31/2022 ENDOSCOPY WRIST W/ RELEASE TRANSVERSE CARPAL LIGAMENT (WRVU 6.39) performed by Long Kinney MDat [facility] OSC PRO UPPER GI ENDOSCOPY, BIOPSY N/A 08/31/2020 EGD WITH BIOPSY (WRVU 2.49) performed by Perez Rubalcava MD at [facility] ENDOSCOPY MEDS: No current facility-administered medications [...] 1 TABLET FOR SUMAtriptan (IMITREX) 20 mg/actuation Danforth, Non-Aerosol as needed. baclofen (Lioresal) 10 mg [...] ELEN Serrato 05/06/2024 Thoracic Surgery Service Pager [phone] Associated attestation - Chace Grijalva MD - [...] Grijalva MD - 05/06/2024 2:15 PM EDT [facility] Operative Note Patient Name: Joe Garcia : [id number] MR#: [id number] Case Date: 05/06/2024 Surgeon: Surgeons and Role: * Chace Grijalva MD - Primary * Renetta Chaparro PA - Physician Radial Drill Operator For Plastic * Tamir Guerrero MD Preoperative diagnosis: mediastinal mass Postoperative diagnosis: mediastinal mass Procedure(s) (LRB): @ROBOTIC THYMECTOMY W/ RAD. MEDIASTINAL DISSECTION (WRVU 23.48) (Left) BRONCHOSCOPY, DIAGNOSTIC (WRVU 2.53) (N/A) MODIFIER ROBOTMILI XI (N/A) Modifiers: 22: Increased procedural services [...] margin, cauterized area is lateral [place] 11 47213 mediastinal mass Left superior lateral margin, cauterized area is lateral excision 05/06/2024 4:04 PM Time specimen removed from patient: 4:04 PM Number of tissue samples (in container) 1 SPECIMEN TO PATHOLOGY Anterior mediastinal inferior fat OR 11 38886 mediastinal mass Anterior mediastinal inferior fat excision 05/06/2024 4:18 PM Time specimen removed from patient: 4:17 PM Number of tissue samples (in container) 1 SPECIMEN TO PATHOLOGY radical thymectomy, short stitch superior; long stitch left lateral OR 11 09145 mediastinal mass radical thymectomy, short stitch superior; [...] placed in standard fashion. A 12 mm commercial assistant port was placed under direct vision. [...] size of the specimen, the 12 mm commercial assistant port was upsized to a 15 [...] bleeding from the port sites. A 28 Stateless chest tube was placed through the initial [...] Office Visit [facility] [place] [address] Pauline Patino APRN [facility] [place] [address] documented as of this encounter Procedures Procedure [...] Routine 05/06/2024 4:05 PM EDT MODIFIER ROBOT,UZIELI SANDRA 2023 1:40 PM EDT Mediastinal mass Bronchoscopy, Diagnostic (47916) 05/06/2024 1:40 PM EDT Mediastinal mass Thymectomy, Radical Mediast Disssec (45401) 05/06/2024 1:40 PM EDT Mediastinal mass ROBOTIC THYMECTOMY W/ RAD. MEDIASTINAL DISSECTION Routine 05/06/2024 12:04 PM EDT Mediastinal mass BRONCHOSCOPY,DIAGNOSTIC Routine 05/06/20 12:04 PM EDT Mediastinal mass documented in this encounter Results * XR Chest PA & Lateral (Generic) (05/26/2024 11:11 AM EDT) WORKSTATION ID [id number] RAD Anatomical Region Laterality Modality Chest N/A Digital Radiogra phy Impressions 05/26/2024 4:06 PM EDT No acute findings . Resolution of postoperative findings Thank you for letting us participate in the care of this patient. ??If you are a health care provider and have any questions regarding this report, please contact the number below. ??For patients who have questions please contact the health farm or ranch animal caretaker that requested your imaging first. ? Narrative [...] patients who have questions please contactthe health farm or ranch animal caretaker that requested your imaging first. Chace Grijalva MD IMG DX ORDERABLES * XR Chest One View (05/06/2024 7:01 PM EDT) WORKSTATION ID [id number] RAD Anatomical Region Laterality Modality Chest N/A [...] who have questions please contact the health farm or ranch animal caretaker that requested your imaging first. ? Narrative 05/06/2024 7:27 PM EDT EXAMINATION: XR [...] patients who have questions please contactthe health farm or ranch animal caretaker that requested your imaging first. Chace Grijalva MD IMG DX ORDERABLES * Specimen to Pathology (05/06/2024 4:45 PM EDT) AP Specimen 05/06/2024 4:45 PM EDT 05/06/2024 4:45 PM EDT Narrative [facility] - 05/06/2024 4:45 PM EDT Specimen requisition ordered. ??Separate Pathology report to follow Chace Grijalva MD PATHOLOGY/CYTOLOGY ORDERABLES [facility] [place] [place] [address] * Flow Cytometry Report (05/06/2024 4:44 PM EDT) Flow Cytometry Report [id number] ? Location: PACU; [address] The signing pathologist has (i) examined [...] Verified: ??05/09/2024 18:59 ??Hematopathologist Performed at: ??-[facility] Dept. of Pathology, [place] [address] Screening Technician: Inna Khan MD, AP, ??CLIA Certificate: [id number] DISCUSSION Blasts based on CD45 expression and [...] express Cd10 There is no increase in VG60-mfdirvan/ CD3-neg NK cells. Flow analysis is an ancillary study. A definite diagnosis requires correlation with the morphologic features of this process and if necessary, correlation with other ancillary studies like immunohistochemistr y, enzyme cytochemistry and/or cyto/ molecular genetics. This test was developed and its performance characteristics determined by the Clinical Flow Cytometry Laboratory at [facility]. It has not been cleared or approved [...] high complexity clinical laboratory testing. SPECIMEN PROCESSING [id number] Cells for immunophenotypic analysis were derived from surgical biopsy of thymus. CD45 vs side scatter gating was utilized to identify a lymphoid analysis region that comprises approximately 93% of all cells. The following markers were assessed: CD2, CD3, CD4, CD5, CD7, CD8, CD10, CD19, CD45, CD56, kappa light chain, and lambda light chain. CLINICAL INFORMATION mediastinal mass -thymus [facility] 05/06/2024 4:44 PM EDT Chace Grijalva MD PATHOLOGY/CYTOLOGY ORDERABLES [facility] [place] [place] [address] * Immunophenotyping Flow Cytometry (05/06/2024 4:44 PM EDT) Immunophenotyping Flow See Comment [facility] Comment: When completed by the Pathologist, the Flow Cytometry Report ([id number]) will display under the Pathology Results section within eDH. Other Other / Unknown 05/06/2024 4 :44 PM EDT 05/06/2024 5:33 PM EDT Narrative Resulting Agency Comment Spec In Lab Authorizing Provider Result Andrzej Grijalva MD HEMATOLOGY ORDERABL ES Performing Organization Address [facility] [place] [address] * Specimen to Pathology (05/06/2024 4:18 PM EDT) AP Specimen 05/06/2024 4:18 PM EDT 05/06/2024 4:18 PM EDT Narrative [facility] - 05/06/2024 4:18 PM EDT Specimen requisition ordered. ??Separate Pathology report to follow Chace Grijalva MD PATHOLOGY/CYTOLOGY ORDERABLES Performing Organization Address [facility] [place] [address] * (ABNORMAL) Surgical Pathology Report (05/06/2024 4:05 PM EDT) Final Diagnosis [id number] ? Location: PACU; [facility]; A The signing pathologist has [...] ??05/16/2024 9:56 ?? Pathologist Performed at: ??-[facility] Dept. of Pathology, [place] [address] Screening Technician: Inna Khan MD, FCAP, ??RASHID Certificate: [id number] SYNOPTIC Specimen ? Procedure: ??Thymectomy Tumor ? [...] lymph nodes are grossly identified. Sections/Processi ng: Gypsum Roofer sections in 1 cassette labeled B1. C [...] measuring up to 1.8 cm Sections/Processi ng: Gypsum Roofer sections in 11 cassettes as follows: ?C1-C2: ??Mass with lateral-yellow and posterior-black ?C3-C4: ??Mass with posterior-black ?C5: ??Mass with posterior-black/l ateral-yellow/ant erior-blue ?C6: ??Superior-orange margin, perpendicular sections ?C7: ??Medial-red margin, perpendicular section ?C8: ??Inferior-green margin with anterior-blue/pos terior-black, perpendicular ? section ?C9: ??Single trisected lymph node ?C10: ??Single intact lymph node ?C11: ??Single intact candidate lymph ??ajw(A) 05/16/2024 9:56 AM EDT [facility] THYMUS GLAND STRUCTURE / Unknown 05/06/2024 4:05 PM EDT 05/06/2024 4:05 PM EDT SOFT TISSUE MASS / Unknown 05/06/2024 4:05 PM EDT 05/06/2024 4:05 PM EDT THYMUS GLAND STRUCTURE / Unknown 05/06/2024 4:05 PM EDT 05/06/2024 4:05 PM EDT Chace Grijalva MD PATHOLOGY/CYTOLOGY ORDERABLES [facility] [place] [address] * Specimen to Pathology (05/06/2024 4:05 PM EDT) AP Specimen 05/06/2024 4:05 PM EDT 05/06/2024 4:05 PM EDT Narrative [facility] - 05/06/2024 4:05 PM EDT Specimen requisition ordered. ??Separate Pathology report to follow Chace Grijalva MD PATHOLOGY/CYTOLOGY ORDERABLES [facility] [place] [place] [address] documented in this encounter Visit Diagnoses Diagnosis [...] EVERY 6 HOURS SCHEDULED, First dose on Thu05/07/24 at 0200, Until Discontinued, Maximum dose of [...] Oral, 3 TIMES DAILY, First dose on Thu05/07/24 at 0900, Until Discontinued, Routine Given 05/07/2024 8:41 AM EDT 100 mg escitalopram (Lexapro) tablet 10 mg 10 mg, Oral, DAILY, First dose on Thu05/07/24 at 0900, Until Discontinued, Routine Given 05/07/2024 8:41 AM EDT 10 mg heparin (porcine) (5,000 units/1 mL) subcutaneous injection 5,000 Units 5,000 Units, Subcutaneous, TYPEWRITER REPAIRER TO O.R., 1 dose, On Thu05/06/24 at [...] medications are indicated., Recovery (Recovery-Hospital Unit), Routine 0139 (Given - Provid er: Daniela Camarillo RN)0841 (Given - Provider: Tameka Fang RN) albuteroL (Proventil, Ventolin) (2.5 mg/3 mL) (0.083 %) nebulizer solution 2.5 mg 2.5 mg, Nebulization, EVERY 6 HOURS, First dose on Thu05/06/24 at 1930, Until Discontinued, Routine 2019 (Given - Provider: Daniela Camarillo RN) 013 (Given - Provider: Daniela Camarillo RN)0842 (Given - Provider: Tameka Fang, ISREAL) amitriptyline (Elavil) tablet 100 mg 100 mg, [...] mL Mini-Bag Plus (COMPLETED) 2 g, Intravenous, TYPEWRITER REPAIRER TO O.R., 1 dose, On Thu05/06/24 at [...] dose on Thu05/07/24 at 0900, Until Discontinued, Routine 0841 (Given - Provid er: Tameka Fang RN) heparin (porcine) (5,000 units/1 mL) subcutaneous injection 5,000 Units (COMPLETED) 5,000 Units, Subcutaneous, TYPEWRITER REPAIRER TO O.R., 1 dose, On Thu05/06/24 at [...] Recovery 1834 (Given - Provider: Kati Campos, ISREAL)191 (Given [...] Routine documented in this encounter Care Teams Grinding And Spraying Supervisor Relationship Specialty Start Date End Date Kenia Devine MD [address] [place] [address] [place] [address] PCP - General Family Medicine 06/02/22 08/28/24 documented as of this encounter
--- OUTSIDE RECORDS SUMMARY | 2024-10-14 13:10 | XMS_ITS | Encounter Summary ---
Author Organization [facility] Address [facility] [place] [address] Care Team Providers Care Press Tender Short Goods Name Role Phone Setnhil Mitchell MD Primary Care Provider + Reason for Visit * Reason Comments Establish Care BILAT CTS * Consultation (Routine) - Closed Specialty Diagnoses / Procedures Referred By Dasia phelps Referred To Contact Orthopaedics Diagnoses Bilateral carpal tunnel syndrome Jerome Motley MD [address] [place] [address] [facility] [address] [place] [address] Referral ID Status Reason Start Date Expiration Date V isits Requested Visits Authorized [id number] Closed Consult, Test & Treat Connection Center PCP Updated and/or Approved 11/26/2021 11/26/2022 6 6 Encounter Details Date Type Department Care Team (Late st Contact Info) Description 12/23/2021 11:20 AM EST Office [place] [phone] Nusrat Saleem PA [facility] [place] [address] Cramping of hands; Median nerve neuropathy, unspecified [...] NAME: Joe Garcia AGE: 56 y.o. MR#: [id number] DATE OF VISIT: 12/23/2021 DATE OF INJURY/ONSET: [...] 4.67) performed by Perez Rubalcava MD at [facility] ENDOSCOPY ??? PRO ENDOSCOPIC US EXAM, ESOPH N/A 01/09/2021 UPPER EUS- ENDOSCOPIC ULTRASOUND performed by Zhen Carnes MD at [facility] ENDOSCOPY ??? PRO UPPER GI ENDOSCOPY, BIOPSY N/A 08/31/2020 EGD WITH BIOPSY (WRVU 2.49) performed by Perez Rubalcava MD at [facility] ENDOSCOPY FAMILY HX: No family history on file. SOCIAL HX: Social History Occupational History ??? 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 Smoking status: Never Smoker [...] less than $25,000 # People Supported 1 Algerian, , No, not Algerian// Race White Health Literacy Somewhat Currently working Yes Current job situation Full-time [employer] [facility] Response 12/23/2021 NICOLE-RIGHT HAND PAIN 2.27 NICOLE-LEFT [...] has had nerve conduction studies from [facility] which are available in scanned [...] concerns. The above documentation was completed using [employer] voice recognition software. documented in this encounter Plan of Treatment Upcoming Encounters Date Type Department Care Team (Late st Contact Info) Description 11/04/2024 1:00 PM EST Office Visit [place] [address] Pauline Patino, STACY [facility] [place] [address] documented as of this encounter Visit Diagnoses Diagnosis Cramping of hands Cramp of limb Median nerve neuropathy, unspecified laterality documented in this encounter Care Teams Press Tender Short Goods Relationship Specialty Start Date End Date Senthil Mitchell MD [address] [place] [address] [place] [address] PCP - General Family Medicine 12/23/21 06/01/22 documented as of this encounter
--- OUTSIDE RECORDS SUMMARY | 2024-10-14 13:10 | XMS_ITS | Encounter Summary ---
Author Organization [facility] [place] [address] Care Team Providers Care Campus Receptionist Name Role Phone Senthil Mitchell MD Primary [...] Office Visit [facility] [place] [address] Pauline Patino, STACY [facility] [place] [address] documented as of this encounter Visit Diagnoses Not on filedocumented in this encounter Care Teams Campus Receptionist Relationship Specialty Start Date End Date Senthil Mitchell MD [address] [place] [address] [place] [address] PCP - General Family Medicine 12/23/21 06/01/22 documented as of this encounter
--- OUTSIDE RECORDS SUMMARY | 2024-10-14 13:10 | XMS_ITS | Encounter Summary ---
Author Organization [facility] Address [facility] [place] [address] Care Team Providers Care Transfer And Line Up Worker Name Role Phone Senthil Mitchell MD Primary Care Provider + Encounter Details Date Type Department Care Team (Late st Contact Info) Description 01/03/2022 [place]phone [place] [phone] Liliane Mishra MD [facility] [place] [address] Social History Tobacco Use Types Packs/Day Years [...] Date: 01/03/2022 Time: 4:18 PM Referring Location: [facility] Referring Provider: Loli Mead MD [address] M [address] [facility] cyclic vomiting syndrome who follows at [facility] who presented to [facility] with persistent vomiting. He was recently seen [...] Recommended continuing with anti-emetics and return to [facility] for clinic follow up. He has follow up with Maria Del Camren Lutz on 01/14 and will see if [...] Office Visit [facility] at [facility] [place] [address] Pauline Patino, STACY [facility] [place] [address] documented as of this encounter Visit Diagnoses Not on filedocumented in this encounter Care Teams Transfer And Line Up Worker Relationship Specialty Start Date End Date Senthil Mitchell MD [address] [place] [address] [place] [address] PCP - General Family Medicine 12/23/21 06/01/22 documented as of this encounter
--- OUTSIDE RECORDS SUMMARY | 2024-10-14 13:10 | XMS_ITS | Encounter Summary ---
Author Organization [facility] Address [facility] [place] [address] Care Team Providers Care Room Clerk Name Role Phone Senthil Mitchell MD Primary Care Provider + Reason for Visit * Reason Onset Date Comments Disability Paperwork 02/03/2022 Encounter Details Date Type Department Care Team (Late st Contact Info) Description 02/03/2022 Telephone [place] [phone] Long Kinney MD [facility] [place] [address] Disability Paperwork Social History Tobacco Use Types [...] AM EDT Faxed/Mailed/MY PORTAL/Pick-up Date: Patient to peanut picker at their appt today with Nusrat [...] Office Visit [place] [address] Pauline Patino, SATCY [facility] [place] [address] documented as of this encounter Visit Diagnoses Not on filedocumented in this encounter Care Teams Room Clerk Relationship Specialty Start Date End Date Senthil Mitchell MD [address] [place] [address] [place] [address] PCP - General Family Medicine 12/23/21 06/01/22 documented as of this encounter
--- OUTSIDE RECORDS SUMMARY | 2024-10-14 13:10 | XMS_ITS | Encounter Summary ---
Author Organization [facility] [place] [address] Care Team Providers Care Artifacts Conservator Name Role Phone Senthil Mitchell MD Primary [...] Expiration Date Visits Re quested Visits Authorized [id number] 1 1 Encounter Details Date Type Department Care Team (Late st Contact Info) Description 01/31/2022 10:26 AM EDT - 01/31/2022 11:05 AM EDT Surgery Out[place] [id number] Kamille Kinney MD [facility] [place] [address] ENDOSCOPY WRIST W/ RELEASE TRANSVERSE CARPAL LIGAMENT [...] 5pm or on a weekend: Call the [facility] pulverizer mill operator and ask for the physician vocational director covering for your doctor. * Patient Instructions* [...] During clinic hours M-F 8-4:30 please call [phone] If it is after 5:00PM on a weekday or a weekend and it is of an urgent nature please call [phone] and ask for the on-call orthopaedic resident. [...] Center 02/12/2022 10:20 AM Nusrat Saleem PA [facility] ORTH 3A [facility] 02/25/2022 9:10 AM [facility] MR 6 MH MRI [facility] Rad 02/25/2022 11:00 AM Julián Sawyer PA [facility] [id number] [facility] documented in this encounter Medications at Time [...] FOR 09/26/2021 10/10/2024 SUMAtriptan (IMITREX) 20 mg/actuation [place], Non-Aerosol as needed. 01/23/2022 10/10/2024 escitalopram (Lexapro) [...] Kinney MD - 01/31/2022 10:31 AM EDT [facility] Operative Note Patient Name: Joe Garcia : [id number] MR#: [id number] Case Date: 01/31/2022 Surgeon: Surgeon(s) and Role: [...] A preoperative time-out was performed as per [facility] protocol. 7mL of 2% lidocaine was injected [...] Operative Note Patient Name: Joe Garcia : [id number] MR#: [id number] Case Date: 01/31/2022 Surgeon: Surgeon(s) and Role: [...] Office Visit [place] [address] Pauline Patino, STACY [facility] [place] [address] documented as of this encounter Procedures Procedure Name Priority Date/Time Associated Diagnosis Comments Endoscopic Wrist Surg Release Transverse Carpal Ligament (41959) 01/31/2022 10:23 AM EDT Median nerve neuropathy, [...] shown in EDT. Scheduled Medication Order 01/29/2022 01/30/202201/3101/31/2022 acetaminophen (Tylenol) tablet 975 mg (COMPLETED) 975 [...] Routine documented in this encounter Care Teams Artifacts Conservator Relationship Specialty Start Date End Date Senthil Mitchell MD [address] [place] [address] [place] [address] PCP - General Family Medicine 12/23/21 06/01/22 documented as of this encounter
--- OUTSIDE RECORDS SUMMARY | 2024-10-14 13:10 | XMS_ITS | Encounter Summary ---
Author Organization [facility] [place] [address] Care Team Providers Care Pipe Supervisor Name Role Phone Senthil Mitchell MD Primary Care Provider + Encounter Details Date Type Department Care Team (Late st Contact Info) Description 02/12/2021 [place] [phone] Julián Sawyer PA [facility] [place] [address] Social History Tobacco Use Types Packs/Day Years [...] February 12, 2021 ??2:40 PM To: P [facility] [place]; William Louis MD ?? Follow-up and Dispositions Check-out Note: FU w/ MRI brain in 12 months documented in this encounter Plan of Treatment Upcoming Encounters Date Type Department Care Team (Late st Contact Info) Description 11/04/2024 1:00 PM EST Office Visit [place] [address] Pauline Patino APRN [facility] [place] [address] documented as of this encounter Visit Diagnoses Not on filedocumented in this encounter Care Teams Pipe Supervisor Relationship Specialty Start Date End Date Senthil Mitchell MD [address] [place] [address] JASON BURDICK [address] PCP - General Family Medicine 12/23/21 06/01/22 documented as of this encounter
--- OUTSIDE RECORDS SUMMARY | 2024-10-14 13:10 | XMS_ITS | Encounter Summary ---
Author Organization [facility] [place] [address] Care Team Providers Care Ring Barker Operator Name Role Phone Senthil Mitchell MD Primary Care Provider + Encounter Details Date Type Department Care Team (Latest Contact Info) Description 01/21/2022 1:00 PM EST Office [place] [address] Maria Del Carmen Lutz, SODA DIALYZER [address] [place] [address] Cyclic vomiting syndrome; Nausea and vomiting, intractability [...] significant for depression/anxiety (managed by [facility] in [place]), and asthma. He was initially seen by me in 06/03/18 following a several year history of nausea with vomiting. He subsequently underwent a EGD at [facility] showing concern for pyloric stenosis. Dilitation was done. During our appointment on 12/06/19 he had persistent vomiting episodes prior to the EGD. I recommended a repeat EGD. During his appointment on 06/29/2020, he endorsed a recent EGD at [facility]. He continued to have vomiting every day [...] history that includes Upper Gi Endoscopy, Biopsy ([id number])(N/A, 08/31/2020); Colonoscopy, Rocco Peralta ([id number]) (N/A, 08/31/2020); and Endoscopic Us Exam,Susan ([id number]) (N/A, 01/09/2021). Family History: family history is [...] 2. CT scan abd/pelvis with contrast 01/17/18 ([facility]); lung nodule- otherwise unrevealing 3. EGD 07/06/18 [facility]; pyloric stenosis with balloon diltation. [...] consider BuSpar Maria Del Carmen Lutz APRN [facility] [place] [address] documented in this encounter Plan of Treatment Upcoming Encounters Date Type Department Care Team (Late st Contact Info) Description 11/04/2024 1:00 PM EST Office Visit [facility] at [facility] [place] [address] Pauline Patino APRN [facility] [place] [address] documented as of this encounter Procedures Procedure Name Priority Date/Time Associated Diagnosis Comments HC PCH C1 ESTERASE INHIBITOR, SERUM Routine 01/21/2022 1:34 PM EST Cyclic vomiting syndrome HC VENIPUNCTURE Routine 01/21/2022 1:34 PM EST Cyclic vomiting syndrome documented in this encounter Results * C1 Esterase Inhibitor, Functional (01/21/2022 1:34 PM EST) C1 Willow Inh Qnt (MARCH) >90 % normal [facility] Comment: REFERENCE VALUE >67 (Normal) 41-67 (Equivocal) <41 (Abnormal) Test Performed by: [place] [address] Loom Fixer Helper: Felipe Koo M.D. Ph.D.; CLIA# [id number] Blood 01/21/2022 1:34 PM EST 01/21/2022 3:00 PM EST Narrative Resulting Agency Comment Spec In Lab Maria Del Carmen Lutz APRN LAB SEND OUT ORD ERABLES [facility] [place] [address] * (ABNORMAL) C1 Esterase Inhibitor Antigen (01/21/2022 1:34 PM EST) C1 Willow Inh Ag (MARCH) 39(H) 19 - 37 mg/dL [facility] Comment: Test Performed by: [place] [address] Loom Fixer Helper: Felipe Koo M.D. Ph.D.; CLIA# [id number] Blood 01/21/2022 1:34 PM EST 01/21/2022 3:00 PM EST Narrative Resulting Agency Comment Spec In Lab Maria Del Carmen Lutz SODA DIALYZER LAB SEND OUT ORD ERABLES [facility] [place] [address] documented in this encounter Visit Diagnoses Diagnosis Cyclic vomiting syndrome Persistent vomiting Nausea and vomiting, intractability of vomiting not specified, unspecified vomiting type documented in this encounter Care Teams Ring Barker Operator Relationship Specialty Start Date End Date Senthil Mitchell MD [address] [place] [address] [place] [address] PCP - General Family Medicine 12/23/21 06/01/22 documented as of this encounter
--- OUTSIDE RECORDS SUMMARY | 2024-10-14 13:10 | XMS_ITS | Encounter Summary ---
Author Organization [facility] [place] [address] Care Team Providers Care Ccu Nurse Name Role Phone Estefani Nicole MD Primary Care Provider + Reason for Visit * Reason Onset Date Comments Reminder Appointment 02/11/2021 Encounter Details Date Type Department Care Team (Late st Contact Info) Description 02/11/2021 [place] [address] Julián Sawyer PA [facility] [place] [address] Reminder Appointment Social History Tobacco Use Types [...] Office Visit [place] [address] Pauline Patino, STAFF RADIATION THERAPIST [facility] [place] [address] documented as of this encounter Visit Diagnoses Not on filedocumented in this encounter Care Teams Ccu Nurse Relationship Specialty Start Date End Date Estefani Nicole MD [address] [place] [address] PCP - General Family Medicine 10/19/19 12/22/21 documented as of this encounter
--- OUTSIDE RECORDS SUMMARY | 2024-10-14 13:10 | XMS_ITS | Encounter Summary ---
Author Organization [facility] [place] [address] Care Team Providers Care Pallet Stone Positioner Name Role Phone Kenia Devine MD Primary Care Provider [phone] Encounter Details Date Type Department Care Team (Late st Contact Info) Description 07/01/2022 Telephone [place] [address] Chace Pete MD [facility] DR GASTROENTEROLOGY [place] [address] Social History Tobacco Use Types Packs/Day Years [...] Date: 07/01/2022 Time: 10:05 AM Referring Location: Referring Provider: Loli Mead MD HPI: This [...] Office Visit [facility] [place] [address] Pauline Patino, REHAB NURSING TECH [facility] PAIN [place] [address] documented as of this encounter Visit Diagnoses Not on filedocumented in this encounter Care Teams Pallet Stone Positioner Relationship Specialty Start Date End Date Kenia Devine MD [address] [place] [address] [place] BURDICK [address] PCP - General Family Medicine 06/02/22 08/28/24 documented as of this encounter
--- OUTSIDE RECORDS SUMMARY | 2024-10-14 13:10 | XMS_ITS | Encounter Summary ---
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
--- OUTSIDE RECORDS SUMMARY | 2024-10-14 13:10 | XMS_ITS | Encounter Summary ---
Author Organization [facility] [place] [address] Care Team Providers Care System Support Technician Name Role Phone Senthil Mitchell MD Primary Care Provider + Encounter Details Date Type Department Care Team (Late st Contact Info) Description 01/06/2022 Telephone [place] [address] Joanne Rodrigues Social History Tobacco Use Types [...] Office Visit [facility] [place] [address] Pauline Patino, BOLT MAN [facility] [place] [address] documented as of this encounter Visit Diagnoses Not on filedocumented in this encounter Care Teams System Support Technician Relationship Specialty Start Date End Date Senthil Mitchell MD [address] [place] [address] [place] [address] PCP - General Family Medicine 12/23/21 06/01/22 documented as of this encounter
--- OUTSIDE RECORDS SUMMARY | 2024-10-14 13:10 | XMS_ITS | Encounter Summary ---
Author Organization [facility] [place] [address] Care Team Providers Care Broadcast Operations Technician Name Role Phone Senthil Mitchell MD [...] Expiration Date Visits Re quested Visits Authorized [id number] 1 1 Encounter Details Date Type Department Care Team (Latest Contact Info) Description 01/31/2022 8:31 AM EDT - 01/31/2022 11:30 AM EDT Hospital Encounter [place]patient [place] [address] Kamille Kinney MD [facility] [place] [address] Median nerve neuropathy, unspecified laterality Discharge Disposition: [...] 5pm or on a weekend: Call the [facility] video operator and ask for the physician continuous miner operator covering for your doctor. * Patient Instructions* [...] During clinic hours M-F 8-4:30 please call [phone] If it is after 5:00PM on a weekday or a weekend and it is of an urgent nature please call [phone] and ask for the on-call orthopaedic resident. [...] Center 02/12/2022 10:20 AM Nusrat Saleem PA [facility] ORTH 3A [facility] 02/25/2022 9:10 AM [facility] MR 6 MH MRI [facility] Rad 02/25/2022 11:00 AM Julián Sawyer PA [facility] [id number] [facility] documented in this encounter Medications at Time [...] FOR 09/26/2021 10/10/2024 SUMAtriptan (IMITREX) 20 mg/actuation [place], Non-Aerosol as needed. 01/23/2022 10/10/2024 escitalopram (Lexapro) [...] Kinney MD - 01/31/2022 10:31 AM EDT [facility] Operative Note Patient Name: Joe Garcia : [id number] MR#: [id number] Case Date: 01/31/2022 Surgeon: Surgeon(s) and Role: [...] A preoperative time-out was performed as per [facility] protocol. 7mL of 2% lidocaine was injected [...] Operative Note Patient Name: Joe Garcia : [id number] MR#: [id number] Case Date: 01/31/2022 Surgeon: Surgeon(s) and Role: [...] Office Visit [place] [address] Pauline Patino, STACY [facility] [address] documented as of this encounter Procedures Procedure Name Priority Date/Time Associated Diagnosis Comments Endoscopic Wrist Surg Release Transverse Carpal Ligament (96876) 01/31/2022 10:23 AM EDT Median nerve neuropathy, [...] Day of Surgery (Day of Procedure) 0949 ([facility] ider: Faby Valdez RN) PRN Medication Order [...] Routine documented in this encounter Care Teams Broadcast Operations Technician Relationship Specialty Start Date End Date Senthil Mitchell MD [address] [place] [address] [place] [address] PCP - General Family Medicine 12/23/21 06/01/22 documented as of this encounter
--- OUTSIDE RECORDS SUMMARY | 2024-10-14 13:10 | XMS_ITS | Encounter Summary ---
Author Organization [facility] Address [facility] [place] [address] Care Team Providers Care Him Manager Name Role Phone Senthil Mitchell MD Primary Care Provider + Reason for Visit * Reason Comments Post Op 01-31-22 Right CTs Encounter Details Date Type Department Care Team (Late st Contact Info) Description 02/12/2022 10:20 AM EDT Office [place] [address] Nusrat Saleem PA [facility] [place] [address] S/p R endoscopic CTS release 01/31/22 (Dr. [...] NAME: Joe Garcia AGE: 56 y.o. MR#: [id number] DATE OF VISIT: 02/12/2022 DATE OF SURGERY: [...] median distribution. 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 He will contact [...] needed. The above documentation was completed using [employer] voice recognition software. documented in this encounter Plan of Treatment Upcoming Encounters Date Type Department Care Team (Late st Contact Info) Description 11/04/2024 1:00 PM EST Office Visit [place] [address] Pauline Patino, STACY [facility] [place] [address] documented as of this encounter Visit Diagnoses Diagnosis S/p R endoscopic CTS release 01/31/22 (Dr. Kinney) Carpal tunnel syndrome documented in this encounter Care Teams Him Manager Relationship Specialty Start Date End Date Senthil Mitchell MD [address] [place] [address] [place] [address] PCP - General Family Medicine 12/23/21 06/01/22 documented as of this encounter
--- OUTSIDE RECORDS SUMMARY | 2024-10-14 13:10 | XMS_ITS | Encounter Summary ---
Author Organization [facility] [place] [address] Care Team Providers Care Greenhouse Laborer Name Role Phone Senthil Mitchell MD Primary Care Provider + Encounter Details Date Type Department Care Team (Late st Contact Info) Description 01/31/2022 Orders [place] [address] Maria Del Carmen Lutz, ELEVATORS INSPECTOR [address] [place] [address] Social History Tobacco Use Types Packs/Day Years [...] Office Visit [place] [address] Pauline Patino, ELEVATORS INSPECTOR [facility] [place] [address] documented as of this encounter Visit Diagnoses Not on filedocumented in this encounter Care Teams Greenhouse Laborer Relationship Specialty Start Date End Date Senthil Mitchell MD [address] [place] [address] [address] [place] [address] PCP - General Family Medicine 12/23/21 06/01/22 documented as of this encounter
--- OUTSIDE RECORDS SUMMARY | 2024-10-14 13:11 | XMS_ITS | Encounter Summary ---
Author Organization [facility] Address [facility] [place] [address] Care Team Providers Care Calender Machine Operator Helper Name Role Phone Estefani Nicole MD [...] Expiration Date Visits Re quested Visits Authorized [id number] 1 1 Encounter Details Date Type Department Care Team (Late st Contact Info) Description 01/09/2021 12:20 PM EST Anesthesia [place] [address] Tamir Arellano MD [facility] [place] [address] Anesthesia Record Procedure Summary Procedure Name Responsible [...] 0812; median cubital vein (antecubital fossa), left; [id number] catheter system; 22 gauge; tolerated well; 08/21/21 [...] Procedure Summary Date: 01/09/21 Room / Location: [facility] ENDO 2 / [facility] ENDOSCOPY Anesthesia Start: 1220 Anesthesia Stop: 1247 Procedure: UPPER EUS- ENDOSCOPIC ULTRASOUND (N/A Trunk) Diagnosis: (EUS to evaluate for pancreatic lesions in setting of CVS without identified etiology) (Coordinated with Brain MRI 01/09) Surgeons: Zhen Carnes MD Responsible Provider: Tamir Arellano MD Anesthesia Type: MAC ASA Status: 2 All Anesthesia Providers: Anesthesiologist: Tamir Arellano MD USER INTERFACE ENGINEER: Tamir Baker CRNA Vitals Value Taken Time BP Temp Pulse Resp SpO2 Pain Level Patient Location: PACU/[facility] Level of Consciousness: Awake and Alert [...] 4.67) performed by Perez Rubalcava MD at [facility] ENDOSCOPY ??? PRO UPPER GI ENDOSCOPY, BIOPSY N/A 08/31/2020 EGD WITH BIOPSY (WRVU 2.49) performed by Perez Rubalcava MD at [facility] ENDOSCOPY Social History Tobacco Use ??? [...] consented to blood products. Plan discussed with USER INTERFACE ENGINEER and attending. PAT Clinic Note documented in this encounter Plan of Treatment Upcoming Encounters Date Type Department Care Team (Late st Contact Info) Description 11/04/2024 1:00 PM EST Office Visit [place] [address] Pauline Patino, STACY [facility] [place] [place] [address] documented as of this encounter Visit Diagnoses [...] mL/hr documented in this encounter Care Teams Calender Machine Operator Helper Relationship Specialty Start Date End Date Estefani Nicole MD [address] [place] [address] PCP - General Family Medicine 10/19/19 12/22/21 documented as of this encounter
--- OUTSIDE RECORDS SUMMARY | 2024-10-14 13:11 | XMS_ITS | Encounter Summary ---
Author Organization [facility] Address [facility] [place] [address] Care Team Providers Care Fabric Awning Repairer Name Role Phone Estefani Nicole MD [...] Expiration Date Visits Re quested Visits Authorized [id number] 1 1 Encounter Details Date Type Department Care Team (Late st Contact Info) Description 08/31/2020 10:45 AM EDT - 08/31/2020 11:45 AM EDT [place] [address] Perez Rubalcava MD [facility] [place] [address] EGD WITH BIOPSY (WRVU 2.39) Social History [...] Sig Dispensed Refills Start Date End Date EPINEPHrine (ADRENALIN) 0.1 mg/mL (1:10,000) Syringe Inject as directed as needed. melatonin 5 mg Tablet Take 10 mg by mouth nightly. omeprazole (PriLOSEC) 20 mg Capsule, Delayed Release(E.C.) Take 40 mg by mouth daily. 10/10/2024 ARIPiprazole (ABILIFY) 5 mg Tablet 15 mg. 0 02/14/2018 01/09/2021 buPROPion (WELLBUTRIN XL) 150 mg Tablet Extended Release 24 hr 0 05/02/201810/10 mirtazapine (REMERON) 15 mg Tablet 30 mg. 0 05/26/2018 10/10/2024 risperiDONE (RISPERDAL) 1 mg Tablet 0 05/26/2018 10/10/2024 sertraline (ZOLOFT) 100 mg Tablet 50 mg. 0 04/14/2018 01/21/2022 PROAIR HFA 90 mcg/actuation HFA Aerosol Inhaler INHALE 2 PUFFS EVERY 4 HOURS 0 03/30/2018 10/10/2024 documented as of this encounter H&P Notes [...] Office Visit [facility] [place] [phone] Pauline Patino APRN [facility] [place] [address] documented as of this encounter Procedures Procedure Name Priority Date/Time Associated Diagnosis Comments SPECIMEN TO PATHOLOGY Routine 08/31/2020 10:59 AM EDT SPECIMEN TO PATHOLOGY Routine 08/31/2020 10:59 AM EDT SPECIMEN TO PATHOLOGY Routine 08/31/2020 10:59 AM EDT SPECIMEN TO PATHOLOGY Routine 08/31/2020 10:59 AM EDT SPECIMEN TO PATHOLOGY Routine 08/31/2020 10:59 AM EDT SURGICAL PATHOLOGY REPORT Routine 08/31/2020 10:46 AM EDT Colonoscopy, Lauro Nichols Snare ([id number]) 08/31/2020 10:18 AM EDT EGD/colon with anesthesia. 4L Nulytely prep already sent to pharmacy (please send patient instructions). INDICATION: please obtain duodenal and colonic bx for vomiting and abdominal pain. please obtain duodenal and colonic bx. Upper Gi Endoscopy, Biopsy ([id number]) 08/31/2020 10:18 AM EDT EGD/colon with anesthesia. [...] AM EDT 08/31/2020 10:59 AM EDT Narrative [facility] - 08/31/2020 10:59 AM EDT Specimen requisition ordered. ??Separate Pathology report to follow Perez Rubalcava MD PATHOLOGY/CYTOLOGY ORDERABLES [facility] [place] [address] * Specimen to Pathology (08/31/2020 10:59 AM EDT) AP Specimen 08/31/2020 10:5 9 AM EDT 08/31/2020 10:59 AM EDT Narrative [facility] - 08/31/2020 10:59 AM EDT Specimen requisition ordered. ??Separate Pathology report to follow Perez Rubalcava MD PATHOLOGY/CYTOLOGY ORDERABLES Performing Organization Address [facility] [place] [address] * Specimen to Pathology (08/31/2020 10:59 AM EDT) AP Specimen 08/31/2020 10:5 9 AM EDT 08/31/2020 10:59 AM EDT Narrative [facility] - 08/31/2020 10:59 AM EDT Specimen requisition ordered. ??Separate Pathology report to follow Perez Rubalcava MD PATHOLOGY/CYTOLOGY ORDERABLES Performing Organization Address [facility] Co de Phone Number [facility] [place] [address] * Specimen to Pathology (08/31/2020 10:59 AM EDT) AP Specimen 08/31/2020 10:5 9 AM EDT 08/31/2020 10:59 AM EDT Narrative [facility] - 08/31/2020 10:59 AM EDT Specimen requisition ordered. ??Separate Pathology report to follow Perez Rubalcava MD PATHOLOGY/CYTOLOGY ORDERABLES Performing Organization Address [facility] Co de Phone Number [facility] [place] [address] * Specimen to Pathology (08/31/2020 10:59 AM EDT) AP Specimen 08/31/2020 10:5 9 AM EDT 08/31/2020 10:59 AM EDT Narrative [facility] - 08/31/2020 10:59 AM EDT Specimen requisition ordered. ??Separate Pathology report to follow Perez Rubalcava MD PATHOLOGY/CYTOLOGY ORDERABLES [facility] [place] [address] * Surgical Pathology Report (08/31/2020 10:46 AM EDT) Final Diagnosis [id number] ? Location: 4T; EA07; A The signing [...] Martinez MD Verified: ??09/06/2020 ?Pathologist Performed at: ??-[facility] Dept. of Pathology, [place], [place] SPECIMEN(S) SUBMITTED A - duodenum r/o [...] labeled E1. ??sns 09/06/2020 3:39 PM EDT [facility] GI Biopsy 08/31/2020 10:4 6 AM EDT 08/31/2020 10:46 AM EDT GI Biopsy 08/31/2020 10:4 6 AM EDT 08/31/2020 10:46 AM EDT GI Biopsy 08/31/2020 10:4 6 AM EDT 08/31/2020 10:46 AM EDT GI Biopsy 08/31/2020 10:4 6 AM EDT 08/31/2020 10:46 AM EDT GI Biopsy 08/31/2020 10:4 6 AM EDT 08/31/2020 10:46 AM EDT Perez Rubalcava MD PATHOLOGY/CYTOLOGY ORDERABLES [facility] [place] [address] * COLONOSCOPY (08/31/2020 10:08 AM EDT) COLONOSCOPY [facility] Endoscopy Procedure Date: 08/31/2020 10:08 AM ? Patient Name: Joe Garcia ? Date of : 1965 ? Age: 55 ? Order #: [id number] ? Instrument Name: [id number] ? Procedure: ? Colonoscopy Indications: ? Abdominal pain Providers: ? Perez Rubalcava MD, Carol ? Chasidy Ortega, ? Metal Products Fabricator Assembler Referring MD: ?Estefani Nicole Medicines: ? Monitored Anesthesia Care [...] Procedure Code(s): ?? --- Professional --- ? 35835, Colonoscopy, flexible; with ? removal of tumor(s), polyp(s), or ? other lesion(s) by snare technique ? 06209, 59, Colonoscopy, flexible; ? with biopsy, single or multiple ? --- Technical --- ? 12283, Colonoscopy, flexible; with ? removal of tumor(s), polyp(s), or ? other lesion(s) by snare technique ? 13975, 59, Colonoscopy, flexible; ? with biopsy, single or multiple CPT copyright 2019 [employer]. All rights reserved. The codes documented in this report are preliminary and upon personal service representative review may be revised to meet current compliance requirements. Attending Participation: ? I personally performed the entire procedure. ? ___ Perez Rubalcava MD 08/31/2020 11:01:10 AM This report has been signed electronically. Number of Addenda: 0 Note Initiated On: 08/31/2020 10:08 AM PROVATION 08/31/2020 10:0 8 AM EDT Estefani Nicole MD GENERAL SURGICAL ORDERABLES PROVATION * UPPER GI ENDOSCOPY (08/31/2020 10:07 AM EDT) UPPER GI ENDOSCOPY [facility] Endoscopy Procedure Date: 08/31/2020 10:07 AM ? Patient Name: Joe Garcia ? Date of : 1965 ? Age: 55 ? Order #: [id number] ? Instrument Name: [id number] ? Procedure: ? Upper GI endoscopy Indications: ? Nausea/Vomiting Providers: ? Perez Rubalcava MD, Gladys ? Chasidy Ortega, ? Metal Products Fabricator Assembler Referring MD: ?Estefani Nicole [facility]: ? Monitored Anesthesia Care Complications: ? No [...] Procedure Code(s): ?? --- Professional --- ? 45418, Esophagogastroduod enoscopy, ? flexible, transoral; diagnostic, ? including collection of specimen(s) ? by brushing or washing, when ? performed (separate procedure) ? --- Technical --- ? 20369, Esophagogastroduod enoscopy, ? flexible, transoral; diagnostic, ? including collection of specimen(s) ? by brushing or washing, when ? performed (separate procedure) CPT copyright 2019 [employer]. All rights reserved. The codes documented in this report are preliminary and upon personal service representative review may be revised to meet current [...] CRNA) documented in this encounter Care Teams Fabric Awning Repairer Relationship Specialty Start Date End Date Estefani Nicole MD [facility] [place] [address] PCP - General Family Medicine 10/19/19 12/22/21 documented as of this encounter
--- OUTSIDE RECORDS SUMMARY | 2024-10-14 13:11 | XMS_ITS | Encounter Summary ---
[place] [address] Care Team Providers Care Debit Agent Name Role Phone Estefani Nicole MD Primary [...] Lutz APRN [address] [place] [address] [facility] Endoscopy [address] [place] [address] Referral ID Status Reason Start Date Expiration Date V isits Requested Visits Authorized [id number] Closed Consult, Test & Treat 10/30/2020 10/30/2021 [...] Lutz APRN [address] [place] [address] [facility] [place] [place] [address] Referral ID Status Reason Start Date Expiration Date V isits Requested Visits Authorized [id number] Closed Specialty Service Requested 10/30/2020 04/30/2022 1 1 Encounter Details Date Type Department Care Team (Latest Contact Info) Description 10/30/2020 10:00 AM EST Office [place] [address] Maria Del Carmen Lutz APRN [address] [address] Cyclical vomiting without status migrainosus, not intractable; [...] to schedule your imaging studies at the [facility]. Main radiology scheduling line Direct phone [...] significant for depression/anxiety (managed by Dr. Collins [facility] in [place]), and asthma. He was initially seen by me in 06/03/18 following a several year history of nausea with vomiting. He subsequently underwent a EGD at [facility] showing concern for pyloric stenosis. Dilitation was done. During our appointment on 12/06/19 he had persistent vomiting episodes prior to the EGD. I recommended a repeat EGD. During his last appointment on 06/29/2020, he endorsed a recent EGD at [facility]. He continued to have vomiting every [...] history that includes Upper Gi Endoscopy, Biopsy ([id number])(N/A, 08/31/2020) and Colonoscopy, Lauro Nichols Snare ([id number]) (N/A, 08/31/2020). Family History: family history is [...] 2. CT scan abd/pelvis with contrast 01/17/18 ([facility]); lung nodule- otherwise unrevealing 3. EGD 07/06/18 [facility]; pyloric stenosis with balloon diltation. 4. [...] standpoint as determined by the PCP; try kuq-yk-[id number]-time for at least ~90 days each before switching therapy, as long as tolerated) Step 1) consider amitriptyline 10mg at night, increase to 75-100mg as needed (possible side effectscan include drowsiness, dry mouth, constipation, sexual dysfunction, arrhythmias, and weight gain);reference: Gastroenterology. 2018 Jan;154(4):4261-1752.e1 Step 2) Consider topamax 100mg daily (possible [...] complete Maria Del Carmen Lutz APRN [facility] [place] [address] documented in this encounter Plan of Treatment Upcoming Encounters Date Type Department Care Team (Late st Contact Info) Description 11/04/2024 1:00 PM EST Office Visit [facility] [place] [address] Pauline Patino APRN [facility] [place] [address] Scheduled Referrals Name Type Priority Associated Diagnoses [...] please contact the number below. ? Narrative 01/09/2021 9:50 AM EST EXAMINATION: MRI BRAIN WWO CONTRAST (GENERIC) CLINICAL HISTORY: Meningitis/CABIN SERVICE AGENT infection suspected chronic nausea/vomiting TECHNIQUE: MRI of [...] MRI BRAIN WWO CONTRAST (GENERIC) CLINICAL HISTORY: Meningitis/CABIN SERVICE AGENT infection suspected chronic nausea/vomiting TECHNIQUE: MRI of [...] below. Electronically signed by: Nishant Baxter MD, [facility]([phone]), at 01/09/2021 9:50 AM Maria Del Carmen Lutz APRN [facility] ORDERABL ES documented in this encounter [...] type documented in this encounter Care Teams Debit Agent Relationship Specialty Start Date End Date Estefani Nicole MD [facility] [place] [address] PCP - General Family Medicine 10/19/19 12/22/21 documented as of this encounter
--- OUTSIDE RECORDS SUMMARY | 2024-10-14 13:11 | XMS_ITS | Encounter Summary ---
[place] [address] Care Team Providers Care Telecommunications Engineer Name Role Phone Estefani Nicole MD Primary Care Provider + Reason for Visit * Consultation (Routine) - Closed Specialty Diagnoses / Procedures Referred By Dasia phelps Referred To Contact Gastroenterology Diagnoses Nausea with vomiting Estefani Nicole MD [address] [place] [address] [facility] [address] [place] [address] Referral ID Status Reason Start Date Expiration Date Visits Re quested Visits Authorized [id number] Closed 10/19/2019 10/18/2020 1 1 Encounter Details Date Type Department Care Team (Latest Contact Info) Description 12/06/2019 12:30 PM EST Office [place] [phone] Maria Del Carmen Lutz, BROADBAND TECHNICIAN [address] [address] Pyloric stenosis; Nausea and vomiting, intractability of [...] 1. Upper endoscopy to be done at [facility] 2. Follow up 3 months documented in this encounter Progress Notes * Maria Del Carmen Lutz APRN - 12/06/2019 12:30 PM EST VACUUM FRAME OPERATOR: Maria Del Carmen Lutz APRN PCP: Estefani Nicole MD REQUESTING PROVIDER: Estefani Nicole MD REASON FOR VISIT This is a 54 y.o. male with a history significant for pyloric stenosis, depression, anxiety, and asthma. He is returning to in today in follow up. He is accompanied by his sister. GI PROBLEM LIST 1. NAUSEA with vomiting with pyloric stenosis --ABD u/s 03/27/18; normal findings --CT scan abd/pelvis with contrast 01/17/18 ([facility]); lung nodule- otherwise unrevealing --EGD 07/06/18 [facility]; pyloric stenosis with balloon diltation. INTERVAL HISTORY- 12/06/19 Had an EGD done in June 2018 at [facility]. Pyloric stenosis. Balloon dilitation was done. [...] sphincter; effective SOCIAL HISTORY Currently works in [employer]. Single. Has no kids. HABITS Denies tobacco [...] PLAN 1. EGD to be done at [facility] 2. GIF 3 months Signed, Maria Del Carmen Lutz APRN 12/06/2019 12:57 PM Section of Gastroenterology & Hepatology [facility] documented in this encounter Plan of Treatment Upcoming Encounters Date Type Department Care Team (Late st Contact Info) Description 11/04/2024 1:00 PM EST Office Visit [place] [address] Pauline Patino APRN [facility] [place] [address] documented as of this encounter Visit Diagnoses Diagnosis Pyloric stenosis Acquired hypertrophic pyloric stenosis Nausea and vomiting, intractability of vomiting not specified, unspecified vomiting type documented in this encounter Care Teams Telecommunications Engineer Relationship Specialty Start Date End Date Estefani Nicole MD [address] [place] [address] PCP - General Family Medicine 10/19/19 12/22/21 documented as of this encounter
--- OUTSIDE RECORDS SUMMARY | 2024-10-14 13:11 | XMS_ITS | Encounter Summary ---
Author Organization [facility] [place] [address] Care Team Providers Care Vertical Lathe Operator Name Role Phone Estefani Nicole MD Primary Care Provider + Encounter Details Date Type Department Care Team (Late st Contact Info) Description 07/16/2020 Telephone Gastroenterology at [facility] [place] [phone] Brittaney Colon RN Social History Tobacco Use [...] PM EDT Patient states he was in [facility] ED x 6 over the last two [...] Office Visit [facility] [place] [address] Pauline Patino APRN [facility] [place] [address] documented as of this encounter Visit Diagnoses Not on filedocumented in this encounter Care Teams Vertical Lathe Operator Relationship Specialty Start Date End Date Estefani Nicole MD [facility] [place] [address] PCP - General Family Medicine 10/19/19 12/22/21 documented as of this encounter
--- OUTSIDE RECORDS SUMMARY | 2024-10-14 13:11 | XMS_ITS | Encounter Summary ---
[place] [address] Care Team Providers Care Senior Counsel Name Role Phone Estefani Nicole MD Primary [...] wwo Contrast (Generic) Maria Del Carmen Lutz BUTTONHOLE TACKER [address] [place] [address] [place] [address] Referral ID Status Reason Start Date Expiration Date V isits Requested Visits Authorized [id number] Closed Specialty Service Requested 10/30/2020 04/30/2022 1 [...] wwo Contrast (Generic) Maria Del Carmen Lutz, BUTTONHOLE TACKER [address] [place] [address] [place] [address] Referral ID Status Reason Start Date Expiration Date V isits Requested Visits Authorized [id number] Closed Specialty Service Requested 10/30/2020 04/30/2022 1 1 Encounter Details Date Type Department Care Team (Latest Contact Info) Description 01/09/2021 7:55 AM EST - 01/09/2021 11:35 AM EST Hospital Encounter MRI at [facility] [place] [address] Maria Del Carmen Lutz, BUTTONHOLE TACKER [address] [place] [address] Cyclical vomiting without status migrainosus, not intractable; [...] Sig Dispensed Refills Start Date End Date budesonide-formoteroL (SYMBICORT) 80-4.5 mcg/actuation HFA Aerosol Inhaler Inhale into the lungs as needed. prochlorperazine (Compazine) 10 mg Tablet Take 10 mg by mouth as needed for Nausea. ondansetron (Zofran) 4 mg Tablet Take 4 mg by mouth as needed for Nausea. EPINEPHrine (ADRENALIN) 0.1 mg/mL (1:10,000) Syringe Inject as directed as needed. melatonin 5 mg Tablet Take 10 mg by mouth nightly. amitriptyline (Elavil) 10 mg Tablet Take 10 [...] Office Visit [facility] [place] [address] Pauline Patino APRN [facility] [place] [address] documented as of this encounter Procedures Procedure [...] ? Electronically signed by: Nishant Baxter MD, [facility] ([phone]), at 01/09/2021 9:50 AM Narrative 01/09/2021 9:50 AM EST EXAMINATION: MRI BRAIN WWO CONTRAST (GENERIC) CLINICAL HISTORY: Meningitis/BLISS PRESS OPERATOR infection suspected chronic nausea/vomiting TECHNIQUE: MRI of [...] MRI BRAIN WWO CONTRAST (GENERIC) CLINICAL HISTORY: Meningitis/BLISS PRESS OPERATOR infection suspected chronic nausea/vomiting TECHNIQUE: MRI of [...] below. Electronically signed by: Nishant Baxter MD, [facility]([phone]), at 01/09/2021 9:50 AM Maria Del Carmen Willinghamjeredloyda BUTTONHOLE TACKER IMG MRI ORDERABL ES documented in this [...] mLs documented in this encounter Care Teams Senior Counsel Relationship Specialty Start Date End Date Estefani Nicole MD [address] [place] [address] PCP - General Family Medicine 10/19/19 12/22/21 documented as of this encounter
--- OUTSIDE RECORDS SUMMARY | 2024-10-14 13:11 | XMS_ITS | Encounter Summary ---
[place] [address] Care Team Providers Care Chemical Waste Management Technician Name Role Phone Estefani Nicole MD Primary Care Provider + Reason for Referral * Diagnostic Test (Routine) - Closed Specialty Diagnoses / Procedures Referred By Dasia t Referred To Contact Radiology Diagnoses Nausea and vomiting, intractability of vomiting not specified, unspecified vomiting type Lower abdominal pain Procedures MRI Cholangiopancreatography Maria Del Carmen Lutz APRN [address] [place] [address] [place] [address] Referral ID Status Reason Start Date Expiration Date V isits Requested Visits Authorized [id number] Closed Specialty Service Requested 08/06/2020 02/02/2021 1 1 Reason for Visit * Diagnostic Test (Routine) - Closed Specialty Diagnoses / Procedures Referred By Contac t Referred To Contact Radiology Diagnoses Nausea and vomiting, intractability of vomiting not specified, unspecified vomiting type Lower abdominal pain Procedures MRI Cholangiopancreatography Maria Del Carmen Lutz APRN [address] [place] [address] [place] [address] Referral ID Status Reason Start Date Expiration Date V isits Requested Visits Authorized [id number] Closed Specialty Service Requested 08/06/2020 02/02/2021 1 1 Encounter Details Date Type Department Care Team (Latest Contact Info) Description 08/07/2020 9:24 AM EDT - 08/07/2020 11:59 PM EDT Hospital [place] [phone] Maria Del Carmen Lutz, SAFETY PIN ASSEMBLING MACHINE OPERATOR [address] [place] [address] Nausea and vomiting, intractability of vomiting not [...] Office Visit [place] [phone] Pauline Patino, SAFETY PIN ASSEMBLING MACHINE OPERATOR [facility] [place] [address] documented as of this encounter Procedures Procedure [...] please contact the number below. ? Narrative 08/07/2020 11:39 AM EDT EXAMINATION: MRI [...] below. Electronically signed by: Sherita Richardson MD, [facility]([phone]), at 08/07/2020 11:39 AM Maria Del Carmen Lutz SAFETY PIN ASSEMBLING MACHINE OPERATOR IMG MRI ORDERABL ES documented in this encounter Visit Diagnoses Diagnosis Nausea and vomiting, intractability of vomiting not specified, unspecified vomiting type Lower abdominal pain Abdominal pain, other specified site documented in this encounter Care Teams Chemical Waste Management Technician Relationship Specialty Start Date End Date Estefani Nicole MD [facility] [place] [address] PCP - General Family Medicine 10/19/19 12/22/21 documented as of this encounter
--- OUTSIDE RECORDS SUMMARY | 2024-10-14 13:11 | XMS_ITS | Encounter Summary ---
[place] [address] Care Team Providers Care Mixer Operator Helper Hot Metal Name Role Phone Estefani Nicole MD Primary Care Provider + Reason for Referral * Diagnostic Test (Routine) - Closed Specialty Diagnoses / Procedures Referred By Dasia phelps Referred To Contact Radiology Diagnoses Nausea and vomiting, intractability of vomiting not specified, unspecified vomiting type Lower abdominal pain Procedures MRI Cholangiopancreatography Maria Del Carmen Lutz APRN [address] [place] [address] [place] [address] Referral ID Status Reason Start Date Expiration Date V isits Requested Visits Authorized [id number] Closed Specialty Service Requested 08/06/2020 02/02/2021 1 [...] Lutz APRN [address] [place] [address] [facility] [address] [place] [address] Referral ID Status Reason Start Date Expiration Date V isits Requested Visits Authorized [id number] Closed Test Only 06/29/2020 06/29/2021 1 1 * Consultation (Routine) - Closed Specialty Diagnoses / Procedures Referred By Contflakito phelps Referred To Contact Gastroenterology Diagnoses Nausea and vomiting, intractability of vomiting not specified, unspecified vomiting type Lower abdominal pain Maria Del Carmen Lutz APRN [address] [place] [address] [facility] [address] [place] [address] Referral ID Status Reason Start Date Expiration Date V isits Requested Visits Authorized [id number] Closed Consult, Test & Treat 06/29/2020 06/29/2021 1 1 Encounter Details Date Type Department Care Team (Latest Contact Info) Description 06/29/2020 11:30 AM EDT TH Visit (TeleHealth) [place] [phone] Maria Del Carmen Lutz APRN [address] [address] Nausea and vomiting, intractability of vomiting not [...] EDT 1. Blood work at 8am at [facility] 2. Upper endoscopy and colonoscopy with anesthesia 3. MRCP. Please call radiology to schedule your imaging studies at the [facility]. Direct phone numbers: If you [...] pyloric stenosis, depression/anxiety (managed by Dr. Collins [facility] in [place]), and asthma. He was initially seen by me in 06/03/18 following a several year history of nausea with vomiting. He subsequently underwent a EGD at [facility] showing concern for pyloric stenosis. Dilitation was done. During our last appointment on 12/06/19 he had persistent vomiting episodes prior to the EGD. I recommended a repeat EGD. I called him multiple times after our last appointment with additionalrecommendations, but was unable to reach him. Interval history: Had EGD done a [facility]. they didn't find anything. Has been vomiting [...] persistent vomiting. Had repeat EGD done at [facility]. No significant findings per his report. Given [...] on above. Maria Del Carmen Lutz APRN [facility] [place] [address] documented in this encounter Plan of Treatment Upcoming Encounters Date Type Department Care Team (Late st Contact Info) Description 11/04/2024 1:00 PM EST Office Visit [facility] [place] [address] Pauline Patino APRN [facility] [place] [address] Scheduled Referrals Name Type Priority Associated Diagnoses [...] EDT) IgA 75 70 - 400 mg/dL [facility] Blood specimen (specimen) 08/16/2020 11:21 AM EDT 08/16/2020 11:37 AM EDT Narrative Resulting Agency Comment Spec In Lab Maria Del Carmen Lutz APRN CHEMISTRY ORDERA BLES [facility] [place] [address] * Tissue transglutaminase, IgA (08/16/2020 11:21 AM EDT) TTG IgA Ab 0.3 0.1 - 10.0 u/ml [facility] Comment: Negative = <7 U/mL Equivocal = 7-10 U/mL Positive = >10 U/mL Blood specimen (specimen) 08/16/2020 11:21 AM EDT 08/16/2020 1:47 PM EDT Narrative Resulting Agency Comment Spec In Lab Maria Del Carmen Lutz LABOR CREW SUPERVISOR IMMUNOLOGY ORDER JEN Performing Organization Address [facility] Co de Phone Number [facility] [place] [address] * TSH (08/16/2020 11:21 AM EDT) Thyroid Stimulating Hormone 1.72 0.27 - 4.20 mcIU/mL [facility] Blood specimen (specimen) 08/16/2020 11:21 AM EDT 08/16/2020 11:37 AM EDT Narrative Resulting Agency Comment Spec In Lab Maria Del Carmen Lutz LABOR CREW SUPERVISOR CHEMISTRY ORDERA BLES Performing Organization Address [facility] Co de Phone Number [facility] [place] [address] * Hemoglobin A1c (08/16/2020 11:21 AM EDT) Pathologist [facility] Hemoglobin A1c 5.2 4.3 - 5.6 % [facility] Comment: Reference Range: 4.3 - 5.6% [...] Mellitus, Diabetes Care 2013; 36: Suppl. 1, S67-74 Estimated Average Glucose 104 mg/dL [facility] Comment: eAG equivalents for HbA1c percentages: [...] into estimated average glucose values. ??Diabetes Care 2008:31(8):8354-0095. Blood specimen (specimen) 08/16/2020 11:21 AM EDT 08/16/2020 11:37 AM EDT Narrative Resulting Agency Comment Spec In Lab Maria Del Carmen Lutz APRN CHEMISTRY FANTASMAA SUSY [facility] [place] [address] * MRI Cholangiopancreatography (08/07/2020 11:03 AM EDT) [...] signed by: Sherita Richardson MD, [facility] ([phone]), at 08/07/2020 11:39 AM Narrative 08/07/2020 11:39 [...] signed by: Sherita Richardson MD, [facility]([phone]), at 08/07/2020 11:39 AM Maria Del Carmen Lutz APRN IMG MRI ORDERABL ES documented in this encounter Visit Diagnoses Diagnosis Nausea and vomiting, intractability of vomiting not specified, unspecified vomiting type Lower abdominal pain Abdominal pain, other specified site Nausea and vomiting, intractability of vomiting not specified, unspecified vomiting type Lower abdominal pain Abdominal pain, other specified site documented in this encounter Care Teams Mixer Operator Helper Hot Metal Relationship Specialty Start Date End Date Estefani Nicole MD [address] [place] [address] PCP - General Family Medicine 10/19/19 12/22/21 documented as of this encounter
--- OUTSIDE RECORDS SUMMARY | 2024-10-14 13:11 | XMS_ITS | Encounter Summary ---
Author Organization [facility] Address [address] [place] [address] Care Team Providers Care Senior Piping Designer Name Role Phone Kenia Devine MD Primary Care Provide r Encounter Details Date Type Department Care Team (Late st Contact Info) Description 06/15/2024 Lab Requisition [facility] Pathology & Laboratory Medicine - Main [address] [address] Outr Resulting Lab, Provider Social History Tobacco [...] Recorded Sex Assigned at Not on file Legal Sex Male 18:14 EST Gender Identity Male 03/13/2020 14:52 EDT Sexual [...] 30 - 100 ng/mL 06/16/2024 12:[address] [facility] Comment: Vitamin D 25,OH Interpretive Ranges: Deficiency: ??<10.0 ng/mL Insufficiency: ??10.0 - 30.0 ng/mL Sufficiency: ??30.0 - 100.0 ng/mL Toxicity: ??>100.0 ng/mL Blood VENOUS BLOOD / Unknown 06/15/2024 7:03 EDT 06/15/2024 21:41 EDT us Provider Outr Resulting Lab CHEMISTRY & BLOOD GA S ORDERABLES Final Result [facility] [address] [place] [address] documented in this encounter Visit Diagnoses Not on filedocumented in this encounter Care Teams Senior Piping Designer Relationship Specialty Start Date End Date Kenia Devine MD [address] [place] [address] [place] [address] PCP - General Family Medicine - Hospital Medicine 10/22/22 documented as of this encounter
--- OUTSIDE RECORDS SUMMARY | 2024-10-14 13:11 | XMS_ITS | Encounter Summary ---
Author Organization [facility] [place] [address] Care Team Providers Care Cotton Jammer Name Role Phone Estefani Nicole MD Primary Care Provider + Encounter Details Date Type Department Care Team (Late st Contact Info) Description 07/02/2020 Telephone [place] [address] Mandi Almaraz Social History Tobacco Use Types Packs/Day Years Used Date Smoking Tobacco: Never Smokeless Tobacco: Never Sex and Gender Information Value Date Recorded Sex Assigned at Not on file Gender Identity Not on file Sexual Orientation Not on file documented as of this encounter Miscellaneous Notes * Telephone Encounter - Mandi Almaraz - 07/02/2020 8:23 AM EDT [facility] CLINICAL SAFETY CHECKLIST 07/02/2020 Mandi Garcia [address] [facility] [address] [id number] : 1965 REFERRING PROVIDER: Maria Del Carmen [...] Office Visit [facility] [place] [address] Pauline Patino, MANAGER OF SELECTION AND ASSESSMENT [facility] [place] [address] documented as of this encounter Visit Diagnoses Not on filedocumented in this encounter Care Teams Cotton Jammer Relationship Specialty Start Date End Date Estefani Nicole MD [address] [place] [address] PCP - General Family Medicine 10/19/19 12/22/21 documented as of this encounter
--- OUTSIDE RECORDS SUMMARY | 2024-10-14 13:11 | XMS_ITS | Encounter Summary ---
Author Organization [facility] [place] [address] Care Team Providers Care Manufacturing Technician Name Role Phone Luh Dyer STACY Primary Care Provider [phone] Encounter Details Date Type Department Care Team (Latest Contact Info) Description 01/17/2018 - 01/17/2018 11:59 PM EST Hospital Encounter Radiology Library at [facility] [place] [address] Perez Rubalcava MD [facility] [address] Discharge Disposition: Home Social History Tobacco Use [...] Office Visit Pain and Spine Center at [facility] [place] [address] Pauline Patino APRN [facility] [address] documented as of this encounter Procedures Procedure Name Priority Date/Time Associated Diagnosis Comments FILM LIBRARY STORAGE ONLY CT ABDOMEN AND PELVIS Routine 01/17/2018 12:00 AM EST documented in this encounter Results * Film Library- Storage Only CT Abdomen & Pelvis (01/17/2018 12:00 AM EST) Narrative [facility] - 04/16/2018 6:41 AM EDT This exam is for storage only and is auto-finalizing. Perez Rubalcava MD IMG FILM LIBRARY OR DERABLES [place], [place] documented in this encounter Visit Diagnoses Not on filedocumented in this encounter Care Teams Manufacturing Technician Relationship Specialty Start Date End Date Luh Dyer APRN [address] [place] [address] [place] [address] PCP - General 10/08/10 10/18/19 documented as of this encounter
--- OUTSIDE RECORDS SUMMARY | 2024-10-14 13:11 | XMS_ITS | Encounter Summary ---
Author Organization [facility] Address [facility] [place] [address] Care Team Providers Care Marine Mechanic Name Role Phone Estefani Nicole MD Primary [...] Expiration Date Visits Re quested Visits Authorized [id number] 1 1 Encounter Details Date Type Department Care Team (Late st Contact Info) Description 08/31/2020 10:18 AM EDT Anesthesia [place] [address] [facility] DR [place] [address] Anesthesia Record Procedure Summary Procedure Name Responsible [...] 1016; median cubital vein (antecubital fossa), right; vplf-van-wuzodn catheter system; 20 gauge; distraction, intradermal injection, [...] Procedure Summary Date: 08/31/20 Room / Location: [facility] ENDO 2 / [facility] Anesthesia Start: 1018 Anesthesia Stop: [...] All Anesthesia Providers: Anesthesiologist: Malachi Paulino MD SPOOL FIXER: Venu Cho CRNA Vitals Value Taken Time [...] risks discussed with patient. Plan discussed with SPOOL FIXER. PAT Clinic Note documented in this encounter Plan of Treatment Upcoming Encounters Date Type Department Care Team (Late st Contact Info) Description 11/04/2024 1:00 PM EST Office Visit [place] [address] [facility] [place] [address] documented as of this encounter Visit Diagnoses [...] r documented in this encounter Care Teams Marine Mechanic Relationship Specialty Start Date End Date Estefani Nicole MD [address] [place] [address] PCP - General Family Medicine 10/19/19 12/22/21 documented as of this encounter
--- OUTSIDE RECORDS SUMMARY | 2024-10-14 13:11 | XMS_ITS | Encounter Summary ---
Author Organization [facility] [place] [address] Care Team Providers Care Butcher Helper Name Role Phone Estefani Nicole MD [...] Expiration Date Visits Re quested Visits Authorized [id number] 1 1 Encounter Details Date Type Department Care Team (Late st Contact Info) Description 01/09/2021 1:00 PM EST - 01/09/2021 2:15 PM EST Surgery [place] [phone] Zhen Carnes MD [facility] [place] [address] UPPER EUS- ENDOSCOPIC ULTRASOUND (WRVU 3.47) Social [...] the day after the procedure, use an kctv-mqd-eookigj spray to numb your throat. Sucking on [...] occurs, please contact your Doctor. Please call [phone] before 8pm Mon-Fri with problems, questions or concerns. If you call after 8pm or on weekends, call the Hospital at [phone] and ask to speak to the Electromechanical Engineer neuropsychology division chief and the tube former operator will contact that person for you. When should you call for help? Call [phone] anytime you think you may need emergency [...] any problems. Where can you learn more? [facility] View your After Visit Summary and more online at [email or web address] If you would like to provide feedback about your hospital experience, please call the Office of Patient and Family Relations at . If you have received this After Visit Summary in error, please immediately return it in person to the department, or notify the [facility] Privacy Office by calling toll free at between the hours of 8AM and 5PM to arrange for our retrieval of the documents at no cost to you. Content Version: 12.2 ?? 7332-2573 [employer]. Care instructions adapted under license by [facility]. If you have questions about a medical condition or this instruction, always ask your healthcare professional. [facility] disclaims any warranty or liability for your [...] occurs, please contact your Doctor. Please call [phone] before 8pm Mon-Fri with problems, questions or concerns. If you call after 8pm or on weekends, call the Hospital at [phone] and ask to speak to the Electromechanical Engineer neuropsychology division chief and the tube former operator will contact that person for you. When should you call for help? Call [phone] anytime you think you may need emergency [...] any problems. Where can you learn more? [facility] View your After Visit Summary and more online at [email or web address] If you would like to provide [...] cost to you. Content Version: 12.2 ?? 2480-8744 [employer]. Care instructions adapted under license by [facility]. If you have questions about a medical condition or this instruction, always ask your healthcare professional. [facility] disclaims any warranty or liability for your [...] Carnes MD - 01/09/2021 12:30 PM EST [facility] [place] Note Patient Name: Joe Garcia : [id number] MR#: [id number] Case Date: 01/09/2021 Surgeon: Surgeon(s) and Role: [...] is documented under the Procedure section of eDH. documented in this encounter Plan of Treatment Upcoming Encounters Date Type Department Care Team (Late st Contact Info) Description 11/04/2024 1:00 PM EST Office Visit [facility] [place] [address] Pauline Patino APRN [facility] [place] [address] documented as of this encounter Procedures Procedure Name Priority Date/Time Associated Diagnosis Comments Endoscopic Us Exam, Esoph ([id number]) 01/09/2021 12:22 PM EST EUS to evaluate for pancreatic lesions in setting of CVS without identified etiology Coordinated with Brain MRI 01/09 UPPER EUS-ENDOSCOPIC ULTRASOUND Routine 01/09/2021 12:11 PM EST documented in this encounter Results * UPPER EUS-ENDOSCOPIC ULTRASOUND (01/09/2021 12:11 PM EST) UPPER ENDOSCOPIC ULTRASOUND [facility] Endoscopy Procedure Date: 01/09/2021 12:11 PM ? Patient Name: Joe Garcia ? Date of : 1965 ? Age: 55 ? Order #: [id number] ? Instrument Name: [id number] ? Procedure: ? Upper EUS Indications: ? [...] RN) documented in this encounter Care Teams Butcher Helper Relationship Specialty Start Date End Date Estefani Nicole MD [address] [place] [address] PCP - General Family Medicine 10/19/19 12/22/21 documented as of this encounter
--- OUTSIDE RECORDS SUMMARY | 2024-10-14 13:11 | XMS_ITS | Encounter Summary ---
Author Organization [facility] [place] [address] Care Team Providers Care Automotive Engineering Teacher Name Role Phone Estefani Nicole MD Primary Care Provider + Encounter Details Date Type Department Care Team (Late st Contact Info) Description 12/09/2019 Telephone [place] [address] Maria Del Carmen Lutz APRN [address] [place] [address] Social History Tobacco Use Types Packs/Day Years [...] during the last upper endoscopy done at [facility]. We are also recommending that he have [...] Office Visit [facility] [place] [address] Pauline Patino, VICE PRESIDENT FOR INSTRUCTION [facility] [place] [address] documented as of this encounter Visit Diagnoses Not on filedocumented in this encounter Care Teams Automotive Engineering Teacher Relationship Specialty Start Date End Date Estefani Nicole MD [address] [place] [address] PCP - General Family Medicine 10/19/19 12/22/21 documented as of this encounter
--- OUTSIDE RECORDS SUMMARY | 2024-10-14 13:11 | XMS_ITS | Encounter Summary ---
Author Organization [facility] [place] [address] Care Team Providers Care Technology Support Analyst Name Role Phone Luh Dyer STACY Primary Care Provider [phone] Encounter Details Date Type Department Care Team (Late st Contact Info) Description 07/25/2019 Ancillary Procedure Radiology Library at [facility] [place] [address] David Clemens MD [address] [place] [address] [place] [address] Social History Tobacco Use Types [...] Office Visit Pain and Spine Center at [facility] [address] Pauline Patino MYSQL DATABASE ADMINISTRATOR [facility] [place] [address] documented as of this encounter Procedures Procedure Name Priority Date/Time Associated Diagnosis Comments FILM LIBRARY STORAGE ONLY DX ABDOMEN Routine 07/25/2019 12:00 AM EDT documented in this encounter Results * Film Library- Storage Only DX Abdomen (07/25/2019 12:00 AM EDT) Narrative [facility] - 10/18/2019 8:57 PM EST This exam is auto-finalizing. It's purpose is for storage only. David Clemens MD IMG FILM LIBRARY ORD ERABLES [facility] [place], [place] documented in this encounter Visit Diagnoses Not on filedocumented in this encounter Care Teams Technology Support Analyst Relationship Specialty Start Date End Date Luh Dyer APRN [address] [place] [address] [place] [address] PCP - General 10/08/10 10/18/19 documented as of this encounter
--- OUTSIDE RECORDS SUMMARY | 2024-10-14 13:11 | XMS_ITS | Encounter Summary ---
Author Organization [facility] [place] [address] Care Team Providers Care Chain Maker Name Role Phone Estefani Nicole MD Primary Care Provider + Reason for Visit * Reason Onset Date Comments Reminder Appointment 06/29/2020 Encounter Details Date Type Department Care Team (Late st Contact Info) Description 06/29/2020 Telephone [place] [phone] Abigail Macdonald CMA GASTROENTEROLOGY DEPT Reminder Appointment [...] Office Visit [place] [address] Pauline Patino APRN [facility] [place] [address] documented as of this encounter Visit Diagnoses Not on filedocumented in this encounter Care Teams Chain Maker Relationship Specialty Start Date End Date Estefani Nicole MD [facility] [place] [address] PCP - General Family Medicine 10/19/19 12/22/21 documented as of this encounter
--- OUTSIDE RECORDS SUMMARY | 2024-10-14 13:11 | XMS_ITS | Encounter Summary ---
Author Organization [facility] [place] [address] Care Team Providers Care Drawing In Hand Name Role Phone Estefani Nicole MD Primary [...] Expiration Date Visits Re quested Visits Authorized [id number] 1 1 Encounter Details Date Type Department Care Team (Latest Contact Info) Description 01/09/2021 11:36 AM EST - 01/09/2021 2:01 PM EST Hospital [place] [phone] Zhen Carnes MD [facility] [place] [address] Discharge Disposition: Home Social History Tobacco Use [...] the day after the procedure, use an ummk-xzm-yaeoaig spray to numb your throat. Sucking on [...] occurs, please contact your Doctor. Please call [phone] before 8pm Mon-Fri with problems, questions or concerns. If you call after 8pm or on weekends, call the Hospital at [phone] and ask to speak to the Grout Machine Operator production bow maker and the yardage control operator forming will contact that person for you. When should you call for help? Call [phone] anytime you think you may need emergency [...] any problems. Where can you learn more? [facility] View your After Visit Summary and more online at [email or web address] If you would like to provide feedback about your hospital experience, please call the Office of Patient and Family Relations at . If you have received this After Visit Summary in error, please immediately return it in person to the department, or notify the [facility] Privacy Office by calling toll free at between the hours of 8AM and 5PM to arrange for our retrieval of the documents at no cost to you. Content Version: 12.2 ?? 7340-2451 [employer]. Care instructions adapted under license by [facility]. If you have questions about a medical condition or this instruction, always ask your healthcare professional. [employer] disclaims any warranty or liability for your [...] occurs, please contact your Doctor. Please call [phone] before 8pm Mon-Fri with problems, questions or concerns. If you call after 8pm or on weekends, call the Hospital at [phone] and ask to speak to the Grout Machine Operator production bow maker and the yardage control operator forming will contact that person for you. When should you call for help? Call [phone] anytime you think you may need emergency [...] any problems. Where can you learn more? [facility] View your After Visit Summary and more online at [email or web address] If you would like to provide feedback [...] cost to you. Content Version: 12.2 ?? 8846-6135 [employer]. Care instructions adapted under license by [facility]. If you have questions about a medical condition or this instruction, always ask your healthcare professional. [employer] disclaims any warranty or liability for your [...] Carnes MD - 01/09/2021 12:30 PM EST [facility] Operative Note Patient Name: Joe Garcia : [id number] MR#: [id number] Case Date: 01/09/2021 Surgeon: Surgeon(s) and Role: [...] Office Visit [facility] at [facility] [address] [place] [address] Pauline Patino APRN [facility] [place] [address] documented as of this encounter Procedures Procedure Name Priority Date/Time Associated Diagnosis Comments Endoscopic Us Exam, Esoph ([id number]) 01/09/2021 12:22 PM EST EUS to evaluate for pancreatic lesions in setting of CVS without identified etiology Coordinated with Brain MRI 01/09 UPPER EUS-ENDOSCOPIC ULTRASOUND Routine 01/09/2021 12:11 PM EST documented in this encounter Results * UPPER EUS-ENDOSCOPIC ULTRASOUND (01/09/2021 12:11 PM EST) UPPER ENDOSCOPIC ULTRASOUND [facility] Endoscopy Procedure Date: 01/09/2021 12:11 PM ? Patient Name: Joe Garcia ? Date of : 1965 ? Age: 55 ? Order #: [id number] ? Instrument Name: [id number] ? Procedure: ? Upper EUS Indications: ? [...] RN) documented in this encounter Care Teams Drawing In Hand Relationship Specialty Start Date End Date Estefani Nicole MD [address] [place] [address] PCP - General Family Medicine 10/19/19 12/22/21 documented as of this encounter
--- OUTSIDE RECORDS SUMMARY | 2024-10-14 13:11 | XMS_ITS | Encounter Summary ---
Author Organization [facility] [place] [address] Care Team Providers Care Mediator Name Role Phone Estefani Nicole MD Primary Care Provider + Encounter Details Date Type Department Care Team (Late st Contact Info) Description 12/19/2020 Telephone Gastroenterology at [facility] [place] [phone] Juan Jose Shook Social History Tobacco Use [...] - 12/19/2020 8:13 AM EST Joe Garcia [id number] Diagnosis/Indication: EUS 1. Have you ever had [...] to patient: You must have a responsible green party who will drive you to your procedure, [...] Office Visit [place] [address] Pauline Patino, STACY [facility] [address] documented as of this encounter Visit Diagnoses Not on filedocumented in this encounter Care Teams Mediator Relationship Specialty Start Date End Date Estefani Nicole MD [address] [place] [address] PCP - General Family Medicine 10/19/19 12/22/21 documented as of this encounter
--- OUTSIDE RECORDS SUMMARY | 2024-10-14 13:11 | XMS_ITS | Encounter Summary ---
Author Organization [facility] [place] [address] Care Team Providers Care Slab Off Mill Tender Name Role Phone Estefani Nicole MD Primary Care Provider + Encounter Details Date Type Department Care Team (Late st Contact Info) Description 08/30/2020 Telephone [place] [phone] Lynne Wallis RN Social History Tobacco Use Types Packs/Day [...] he can go to any pharmacy to pick out hand the over the counter miralax prep. Pt was instructed to mix the prepwith 64oz of liquid. documented in this encounter Plan of Treatment Upcoming Encounters Date Type Department Care Team (Late st Contact Info) Description 11/04/2024 1:00 PM EST Office Visit [facility] [place] [address] Pauline Patino, CHILD PROTECTIVE INVESTIGATOR [facility] [place] [address] documented as of this encounter Visit Diagnoses Not on filedocumented in this encounter Care Teams Slab Off Mill Tender Relationship Specialty Start Date End Date Estefani Nicole MD [address] [place] [address] PCP - General Family Medicine 10/19/19 12/22/21 documented as of this encounter
--- OUTSIDE RECORDS SUMMARY | 2024-10-14 13:11 | XMS_ITS | Encounter Summary ---
Author Organization [facility] [place] [address] Care Team Providers Care Fancy Stitcher Name Role Phone Estefani Nicole MD Primary Care Provider + Encounter Details Date Type Department Care Team (Late st Contact Info) Description 12/13/2019 Telephone [place] [address] Maria Del Carmen Lutz APRN [address] [place] [address] Social History Tobacco Use Types [...] Office Visit [place] [address] Pauline Patino APRN [facility] [place] [address] documented as of this encounter Visit Diagnoses Not on filedocumented in this encounter Care Teams Fancy Stitcher Relationship Specialty Start Date End Date Estefani Nicole MD [address] [place] [address] PCP - General Family Medicine 10/19/19 12/22/21 documented as of this encounter
--- OUTSIDE RECORDS SUMMARY | 2024-10-14 13:11 | XMS_ITS | Encounter Summary ---
Author Organization [facility] [place] [address] Care Team Providers Care Steel Sampler Name Role Phone Estefani Nicole MD Primary Care Provider + Encounter Details Date Type Department Care Team (Late st Contact Info) Description 10/16/2020 Telephone [place] [phone] Brittaney Colon RN Social History Tobacco Use [...] Office Visit [place] [phone] Pauline Patino, INSTRUMENTATION MANAGER [facility] [place] [address] documented as of this encounter Visit Diagnoses Not on filedocumented in this encounter Care Teams Steel Sampler Relationship Specialty Start Date End Date Estefani Nicole MD [address] [place] [address] PCP - General Family Medicine 10/19/19 12/22/21 documented as of this encounter
--- OUTSIDE RECORDS SUMMARY | 2024-10-14 13:11 | XMS_ITS | Encounter Summary ---
Author Organization [facility] Address [facility] [place] [address] Care Team Providers Care Information Technology Account Manager Name Role Phone Estefani Nicole MD Primary Care Provider + Encounter Details Date Type Department Care Team (Late st Contact Info) Description 06/29/2020 Telephone Gastroenterology [place] [address] Edgardo Caraballo MD [facility] [place] [address] Social History Tobacco Use Types Packs/Day Years Used Date Smoking Tobacco: Never Smokeless Tobacco: Never Sex and Gender Information Value Date Recorded Sex Assigned at Not on file Gender Identity Not on file Sexual Orientation Not on file documented as of this encounter Miscellaneous Notes * Telephone Encounter - Edgardo Caraballo MD - 06/29/2020 10:39 AM EDT TRANSFER CENTER [facility] Called by Dr. Leal 54 yo [...] Office Visit [facility] [address] Pauline Patino, FICTION AND NONFICTION WRITER PROSE [facility] [place] [address] documented as of this encounter Visit Diagnoses Not on filedocumented in this encounter Care Teams Information Technology Account Manager Relationship Specialty Start Date End Date Estefani Nicole MD [address] [place] [address] PCP - General Family Medicine 10/19/19 12/22/21 documented as of this encounter
--- OUTSIDE RECORDS SUMMARY | 2024-10-14 13:11 | XMS_ITS | Encounter Summary ---
Author Organization [facility] [place] [address] Care Team Providers Care Pre Sales Systems Engineer Name Role Phone Luh Dyer STACY Primary Care Provider [phone] Encounter Details Date Type Department Care Team (Latest Contact Info) Description 03/27/2018 - 03/27/2018 11:59 PM EDT Hospital Encounter Radiology Library at [facility] [place] [place] [address] Perez Rubalcava MD [facility] [place] [address] Discharge Disposition: Home Social History Tobacco Use [...] Office Visit Pain and Spine Center at [facility] [place] [place] [phone] Pauline Patino APRN [facility] [place] [address] documented as of this encounter Procedures Procedure Name Priority Date/Time Associated Diagnosis Comments FILM LIBRARY STORAGE ONLY DX ABDOMEN Routine 03/27/2018 12:00 AM EDT documented in this encounter Results * Film Library- Storage Only DX Abdomen (03/27/2018 12:00 AM EDT) Narrative STACY - 04/16/2018 6:48 AM EDT This exam is for storage only and is auto-finalizing. Perez Rubalcava MD IMG FILM LIBRARY OR DERABLES Performing Organization Address City/State/[facility] Co de Phone Number [place], [place] documented in this encounter Visit Diagnoses Not on filedocumented in this encounter Care Teams Pre Sales Systems Engineer Relationship Specialty Start Date End Date Luh Dyer APRN [address] [place] [address] [place] [address] PCP - General 10/08/10 10/18/19 documented as of this encounter
--- OUTSIDE RECORDS SUMMARY | 2024-10-14 13:11 | XMS_ITS | Encounter Summary ---
[place] [address] Care Team Providers Care Meeting Facilitator Name Role Phone DyerLuh barnett STACY Primary Care Provider [phone] Reason for Visit * Reason Comments GI Problem * Consultation (Routine) - Specialty Diagnoses / Procedures Referred By Dasia phelps Referred To Contact Gastroenterology Diagnoses Nausea and vomiting Procedures Consult Estefani Nicole MD [address] [place] [address] [facility] [place] [address] [address] Referral ID Status Reason Start Date Expiration Date V isits Requested Visits Authorized [id number] 04/15/2018 04/15/2019 1 1 Encounter Details Date Type Department Care Team (Latest Contact Info) Description 06/03/2018 11:00 AM EDT Office Visit [place] [address] Maria Del Carmen Lutz APRN [address] [place] [address] Gastroesophageal reflux disease, esophagitis presence not specified; [...] time to identify triggers. ADDITIONAL RESOURCES: *The [facility] has a wonderful barrera available for this diet *We also recommend a blog called [email or web address]. Follow up as needed pending results of upper endoscopy documented in this encounter Progress Notes * Maria Del Carmen Lutz APRN - 06/03/2018 11:00 AM EDT MECHANICAL FACILITIES TECHNICIAN: Maria Del Carmen Lutz APRN PCP: Luh Dyer APRN REQUESTING PROVIDER: Estefani Nicole MD REASON FOR CONSULTATION This is a 52 y.o. male with a history significant for asthma. I am seeing him as a new patient today in consult for nausea and vomiting. GI PROBLEM LIST 1. NAUSEA with vomiting --ABD u/s 03/27/18; normal findings --CT scan abd/pelvis with contrast 01/17/18 ([facility]); lung nodule- otherwise unrevealing HPI COMMENTS [...] hernia repair SOCIAL HISTORY Currently works in [employer]. Single. Has no kids. HABITS Denies tobacco [...] this 60 minute visit were spent in [id number] discussion and counseling the patientas detailed per above. Signed, Maria Del Carmen Lutz APRN 06/03/18 12:03 PM Section of Gastroenterology & Hepatology [facility] documented in this encounter Plan of Treatment Upcoming Encounters Date Type Department Care Team (Late st Contact Info) Description 11/04/2024 1:00 PM EST Office Visit [facility] [place] [address] Pauline Patino APRN [facility] [place] [address] documented as of this encounter Visit Diagnoses Diagnosis Gastroesophageal reflux disease, esophagitis presence not specified Dyspepsia Dyspepsia and other specified disorders of function of stomach Nausea and vomiting, intractability of vomiting not specified, unspecified vomiting type Diarrhea, unspecified type Dysphagia, unspecified type documented in this encounter Care Teams Meeting Facilitator Relationship Specialty Start Date End Date Luh Dyer APRN [address] [place] [address] [place] [address] PCP - General 10/08/10 10/18/19 documented as of this encounter
--- OUTSIDE RECORDS SUMMARY | 2024-10-14 13:11 | XMS_ITS | Encounter Summary ---
[facility] [place] [address] Care Team Providers Care Railcar Brake Operator Name Role Phone Estefani Nicole MD Primary Care Provider + Encounter Details Date Type Department Care Team (Late st Contact Info) Description 01/22/2021 Telephone [place] [address] Joanne Rodrigues Social History Tobacco [...] Office Visit [place] [address] Pauline Patino, HEADING MACHINE OPERATOR [facility] [place] [address] documented as of this encounter Visit Diagnoses Not on filedocumented in this encounter Care Teams Railcar Brake Operator Relationship Specialty Start Date End Date Estefani Nicole MD [facility] [place] [address] PCP - General Family Medicine 10/19/19 12/22/21 documented as of this encounter
--- OUTSIDE RECORDS SUMMARY | 2024-10-14 13:11 | XMS_ITS | Encounter Summary ---
Author Organization [facility] Address [facility] [place] [address] Care Team Providers Care Chief Juvenile Probation Officer Name Role Phone Estefani Nicole MD Primary [...] Expiration Date Visits Re quested Visits Authorized [id number] 1 1 Encounter Details Date Type Department Care Team (Latest Contact Info) Description 08/31/2020 9:41 AM EDT - 08/31/2020 12:08 PM EDT Hospital Encounter [place] [address] Perez Rubalcava MD [facility] [place] [address] Discharge Disposition: Home Social History Tobacco Use [...] Office Visit [facility] [place] [address] Pauline Patino APRN [facility] [place] [address] documented as of this encounter Procedures Procedure Name Priority Date/Time Associated Diagnosis Comments SPECIMEN TO PATHOLOGY Routine 08/31/2020 10:59 AM EDT SPECIMEN TO PATHOLOGY Routine 08/31/2020 10:59 AM EDT SPECIMEN TO PATHOLOGY Routine 08/31/2020 10:59 AM EDT SPECIMEN TO PATHOLOGY Routine 08/31/2020 10:59 AM EDT SPECIMEN TO PATHOLOGY Routine 08/31/2020 10:59 AM EDT SURGICAL PATHOLOGY REPORT Routine 08/31/2020 10:46 AM EDT Colonoscopy, Remv Magdalena, Snare ([id number]) 08/31/2020 10:18 AM EDT EGD/colon with anesthesia. 4L Nulytely prep already sent to pharmacy (please send patient instructions). INDICATION: please obtain duodenal and colonic bx for vomiting and abdominal pain. please obtain duodenal and colonic bx. Upper Gi Endoscopy, Biopsy ([id number]) 08/31/2020 10:18 AM EDT EGD/colon with anesthesia. [...] AM EDT 08/31/2020 10:59 AM EDT Narrative [facility] - 08/31/2020 10:59 AM EDT Specimen requisition ordered. ??Separate Pathology report to follow Perez Rubalcava MD PATHOLOGY/CYTOLOGY ORDERABLES [facility] [place] [address] * Specimen to Pathology (08/31/2020 10:59 AM EDT) AP Specimen 08/31/2020 10:5 9 AM EDT 08/31/2020 10:59 AM EDT Narrative [facility] - 08/31/2020 10:59 AM EDT Specimen requisition ordered. ??Separate Pathology report to follow Perez Rubalcava MD PATHOLOGY/CYTOLOGY ORDERABLES Performing Organization Address City/[facility]/ZIP [place] [address] * Specimen to Pathology (08/31/2020 10:59 AM EDT) AP Specimen 08/31/2020 10:5 9 AM EDT 08/31/2020 10:59 AM EDT Narrative [facility] - 08/31/2020 10:59 AM EDT Specimen requisition ordered. ??Separate Pathology report to follow Perez Rubalcava MD PATHOLOGY/CYTOLOGY ORDERABLES Performing Organization Address City/[facility] Co de Phone Number [facility] [place] [address] * Specimen to Pathology (08/31/2020 10:59 AM EDT) AP Specimen 08/31/2020 10:5 9 AM EDT 08/31/2020 10:59 AM EDT [facility] - 08/31/2020 10:59 AM EDT Specimen requisition ordered. ??Separate Pathology report to follow Perez Rubalcava MD PATHOLOGY/CYTOLOGY ORDERABLES Performing Organization Address City/[facility] Co de Phone Number [facility] [place] [address] * Specimen to Pathology (08/31/2020 10:59 AM EDT) AP Specimen 08/31/2020 10:5 9 AM EDT 08/31/2020 10:59 AM EDT [facility] - 08/31/2020 10:59 AM EDT Specimen requisition ordered. ??Separate Pathology report to follow Perez Rubalcava MD PATHOLOGY/CYTOLOGY ORDERABLES [facility] [place] [address] * Surgical Pathology Report (08/31/2020 10:46 AM EDT) Final Diagnosis [id number] ? Location: 4T; EA07; A The signing [...] Martinez MD Verified: ??09/06/2020 ?Pathologist Performed at: ??-[facility] Dept. of Pathology, [place], [place] SPECIMEN(S) SUBMITTED A - duodenum r/o [...] labeled E1. ??sns 09/06/2020 3:39 PM EDT [facility] GI Biopsy 08/31/2020 10:4 6 AM EDT 08/31/2020 10:46 AM EDT GI Biopsy 08/31/2020 10:4 6 AM EDT 08/31/2020 10:46 AM EDT GI Biopsy 08/31/2020 10:4 6 AM EDT 08/31/2020 10:46 AM EDT GI Biopsy 08/31/2020 10:4 6 AM EDT 08/31/2020 10:46 AM EDT GI Biopsy 08/31/2020 10:4 6 AM EDT 08/31/2020 10:46 AM EDT Perez Rubalcava MD PATHOLOGY/CYTOLOGY ORDERABLES [facility] [place] [address] * COLONOSCOPY (08/31/2020 10:08 AM EDT) COLONOSCOPY [facility] Endoscopy Procedure Date: 08/31/2020 10:08 AM ? Patient Name: Joe Garcia ? Date of : 1965 ? Age: 55 ? Order #: [id number] ? Instrument Name: [id number] ? Procedure: ? Colonoscopy Indications: ? Abdominal pain Providers: ? Perez Rubalcava MD, Carol ? Chasidy Ortega, ? Civil Cad Tech Referring MD: ?Estefani Nicole Medicines: ? Monitored [...] Procedure Code(s): ?? --- Professional --- ? 75740, Colonoscopy, flexible; with ? removal of tumor(s), polyp(s), or ? other lesion(s) by snare technique ? 07042, 59, Colonoscopy, flexible; ? with biopsy, single or multiple ? --- Technical --- ? 50697, Colonoscopy, flexible; with ? removal of tumor(s), polyp(s), or ? other lesion(s) by snare technique ? 91984, 59, Colonoscopy, flexible; ? with biopsy, single or multiple CPT copyright 2019 [employer]. All rights reserved. The codes documented in this report are preliminary and upon barrel raiser review may be revised to meet current [...] GI ENDOSCOPY (08/31/2020 10:07 AM EDT) Pathologist [facility] UPPER GI ENDOSCOPY [facility] Endoscopy Procedure Date: 08/31/2020 10:07 AM ? Patient Name: Joe Garcia ? Date of : 1965 ? Age: 55 ? Order #: [id number] ? Instrument Name: [id number] ? Procedure: ? Upper GI endoscopy Indications: ? Nausea/Vomiting Providers: ? Perez Rubalcava MD, Gladys ? Chasidy Ortega, ? Civil Cad Tech Referring : ?Estefani Nicole Medicines: ? Monitored [...] Procedure Code(s): ?? --- Professional --- ? 72542, Esophagogastroduod enoscopy, ? flexible, transoral; diagnostic, ? including collection of specimen(s) ? by brushing or washing, when ? performed (separate procedure) ? --- Technical --- ? 82144, Esophagogastroduod enoscopy, ? flexible, transoral; diagnostic, ? including collection of specimen(s) ? by brushing or washing, when ? performed (separate procedure) CPT copyright 2019 [employer]. All rights reserved. The codes documented in this report are preliminary and upon barrel raiser review may be revised to meet current [...] CRNA) documented in this encounter Care Teams Chief Juvenile Probation Officer Relationship Specialty Start Date End Date Estefani Nicole MD [facility] [place] [address] PCP - General Family Medicine 10/19/19 12/22/21 documented as of this encounter
--- OUTSIDE RECORDS SUMMARY | 2024-10-14 13:11 | XMS_ITS | Encounter Summary ---
Author Organization Formerly [facility] [place] [address] Care Team Providers Care Car Loader Name Role Phone Estefani Nicole MD Primary Care Provider + Encounter Details Date Type Department Care Team (Late st Contact Info) Description 07/02/2020 Telephone [place] [phone] Shana Haq, CCMA Social History Tobacco Use Types Packs/Day Years Used Date Smoking Tobacco: Never Smokeless Tobacco: Never Sex and Gender Information Value Date Recorded Sex Assigned at Not on file Gender Identity Not on file Sexual Orientation Not on file documented as of this encounter Miscellaneous Notes * Telephone Encounter - Shana Haq - 07/02/2020 8:45 AM EDT Joe Garcia [id number] Diagnosis/Indication: EGD/colon with anesthesia. 4L Nulytely prep [...] to patient: You must have a responsible democrat who will drive you to your procedure, [...] Office Visit [facility] [place] [address] Pauline Patino APRN [facility] [place] [address] documented as of this encounter Visit Diagnoses Not on filedocumented in this encounter Care Teams Car Loader Relationship Specialty Start Date End Date Estefani Nicole MD [address] [place] [address] PCP - General Family Medicine 10/19/19 12/22/21 documented as of this encounter
--- OUTSIDE RECORDS SUMMARY | 2024-10-14 13:11 | XMS_ITS | Encounter Summary ---
Author Organization [facility] [place] [address] Care Team Providers Care Concrete Vault Maker Name Role Phone Luh Dyer STACY Primary Care Provider +1 [phone] Encounter Details Date Type Department Care Team (Late st Contact Info) Description 05/20/2019 Ancillary Procedure Radiology Library at [facility] [place] [phone] David Clemens MD [address] [place] [address] [place] [address] Social History Tobacco Use Types [...] Office Visit [facility] at [facility] [phone] Pauline Patino FISH ROE TECHNICIAN [facility] [place] [address] documented as of this encounter Procedures Procedure Name Priority Date/Time Associated Diagnosis Comments FILM LIBRARY STORAGE ONLY DX GI STUDY Routine 05/20/2019 12:00 AM EDT documented in this encounter Results * Film Library- Storage Only DX GI Study (05/20/2019 12:00 AM EDT) Narrative [facility] - 10/18/2019 8:56 PM EST This exam is auto-finalizing. It's purpose is for storage only. David Clemens MD IMG FILM LIBRARY ORD ERABLES Performing Organization Address City/State/[facility] Co de Phone Number DH [place], [place] documented in this encounter Visit Diagnoses Not on filedocumented in this encounter Care Teams Concrete Vault Maker Relationship Specialty Start Date End Date Luh Dyer APRN [address] [place] [address] [place] [address] PCP - General 10/08/10 10/18/19 documented as of this encounter
--- OUTSIDE RECORDS SUMMARY | 2024-10-14 13:11 | XMS_ITS | Encounter Summary ---
Author Organization [facility] [place] [address] Care Team Providers Care Regulatory Internship Name Role Phone Estefani Nicole MD Primary Care Provider + Encounter Details Date Type Department Care Team (Late st Contact Info) Description 08/30/2020 Orders [place] [address] Melissa Luna MD [facility] [place] [address] Encounter for screening colonoscopy (Primary Dx) Social [...] Office Visit [facility] [place] [address] Pauline Patino APRN [facility] [place] [address] documented as of this encounter Visit Diagnoses Diagnosis Encounter for screening colonoscopy- Primary Special screening for malignant neoplasms, colon documented in this encounter Care Teams Regulatory Internship Relationship Specialty Start Date End Date Estefani Nicole MD [address] [place], [place] [id number] PCP - General Family Medicine 10/19/19 12/22/21 documented as of this encounter
--- OUTSIDE RECORDS SUMMARY | 2024-10-14 13:11 | XMS_ITS | Encounter Summary ---
Author Organization [facility] [place] [address] Care Team Providers Care Beauty Sales Advisor Name Role Phone Estefani Nicole MD Primary Care Provider + Encounter Details Date Type Department Care Team (Latest Contact Info) Description 08/16/2020 11:45 AM EDT Laboratory Appointment Lab [address] [place] [phone] Nausea and vomiting, intractability of vomiting not [...] Office Visit [facility] [place] [phone] Pauline Patino, STACY [facility] [place] [address] documented as of this encounter Procedures Procedure [...] (08/16/2020 11:21 AM EDT) Cortisol 6.2 mcg/dL [facility] Comment: Reference ranges: ??AM (6-10am): ??4.8-19.5 mcg/dL ??PM (4-8pm) : ??2.5-11.9 mcg/dL Blood specimen (specimen) Venous Draw / Unknown 08/16/2020 11:21 AM EDT 08/16/2020 11:37 AM EDT Narrative Resulting Agency Comment Spec In Lab Maria Del Carmen Lutz CANAL EQUIPMENT MECHANIC CHEMISTRY ORDERA BLES [facility] [place] [address] * Hemoglobin A1c (08/16/2020 11:21 AM EDT) Hemoglobin A1c 5.2 4.3 - 5.6 % [facility] Comment: Reference Range: 4.3 - [...] Mellitus, Diabetes Care 2013; 36: Suppl. 1, I80-73 Estimated Average Glucose 104 mg/dL [facility] Comment: eAG equivalents for HbA1c percentages: HbA1c(%) ?eAG(mg/dL) 6.0 ?126 6.5 ?140 7.0 ?154 7.5 ?169 8.0 ?183 8.5 ?197 9.0 ?212 9.5 ?226 10.0 ? 240 Limitations: The eAG calculation has not been validated on women, individuals below 18 years old and above 70 years old, and individuals with hemoglobinopathies. Additional resources are available on the ADA website. Adan OJHANSEN, Sherron J, Abel R, et al. ??Translating the A1C assay into estimated average glucose values. ??Diabetes Care 2008:31(8):7274-9521. Blood specimen (specimen) 08/16/2020 11:21 AM EDT 08/16/2020 11:37 AM EDT Narrative Resulting Agency Comment Spec In Lab Maria Del Carmen Lutz CANAL EQUIPMENT MECHANIC CHEMISTRY ORDERA BLES Performing Organization Address [facility] Co de Phone Number [facility] [place] [address] * IgA (08/16/2020 11:21 AM EDT) IgA 75 70 - 400 mg/dL [facility] Blood specimen (specimen) 08/16/2020 11:21 AM EDT 08/16/2020 11:37 AM EDT Narrative Resulting Agency Comment Spec In Lab Maria Del Carmen Lutz CANAL EQUIPMENT MECHANIC CHEMISTRY ORDERA BLES Performing Organization Address [facility] Co de Phone Number [facility] [place] [address] * Tissue transglutaminase, IgA (08/16/2020 11:21 AM EDT) TTG IgA Ab 0.3 0.1 - 10.0 u/ml [facility] Comment: Negative = <7 U/mL Equivocal = 7-10 U/mL Positive = >10 U/mL Blood specimen (specimen) 08/16/2020 11:21 AM EDT 08/16/2020 1:47 PM EDT Narrative Resulting Agency Comment Spec In Lab Maria Del Carmen Lutz CANAL EQUIPMENT MECHANIC IMMUNOLOGY ORDER JEN Performing Organization Address City/[facility]/ZIP Co de Phone Number [facility] [place] [address] * TSH (08/16/2020 11:21 AM EDT) Thyroid Stimulating Hormone 1.72 0.27 - 4.20 mcIU/mL [facility] Blood specimen (specimen) 08/16/2020 11:21 AM EDT 08/16/2020 11:37 AM EDT Narrative Resulting Agency Comment Spec In Lab Maria Del Carmen Willinghamjeredloyda CANAL EQUIPMENT MECHANIC CHEMISTRY ORDERA BLES Performing Organization Address City/[facility]/ZIP Co de Phone Number [facility] [place] [address] documented in this encounter Visit Diagnoses Diagnosis Nausea and vomiting, intractability of vomiting not specified, unspecified vomiting type Lower abdominal pain Abdominal pain, other specified site documented in this encounter Care Teams Beauty Sales Advisor Relationship Specialty Start Date End Date Estefani Nicole MD [address] [place] [address] PCP - General Family Medicine 10/19/19 12/22/21 documented as of this encounter
--- OUTSIDE RECORDS SUMMARY | 2024-10-14 13:11 | XMS_ITS | Encounter Summary ---
Author Organization [facility] [place] [address] Care Team Providers Care Product Demonstrator Name Role Phone Estefani Nicole MD Primary Care Provider + Encounter Details Date Type Department Care Team (Late st Contact Info) Description 01/14/2021 Telephone Gastroenterology at [facility] [place] [phone] Brittaney Colon RN Social History Tobacco Use [...] Office Visit [facility] [place] [address] Pauline Patino APRN [facility] [place] [address] documented as of this encounter Visit Diagnoses Not on filedocumented in this encounter Care Teams Product Demonstrator Relationship Specialty Start Date End Date Estefani Nicole MD [address] [place] [address] PCP - General Family Medicine 10/19/19 12/22/21 documented as of this encounter
--- OUTSIDE RECORDS SUMMARY | 2024-10-14 13:11 | XMS_ITS | Encounter Summary ---
Author Organization [facility] [place] [address] Care Team Providers Care Auger Supervisor Name Role Phone Luh Dyer STACY Primary Care Provider +[phone] Encounter Details Date Type Department Care Team (Latest Contact Info) Description 12/07/2017 - 12/07/2017 11:59 PM EST Hospital Encounter Radiology Library at [facility] [place] [address] Perez Rubalcava MD [facility] [place] [address] Discharge Disposition: Home Social History Tobacco Use [...] Office Visit [facility] at [facility] [place] [phone] Pauline Patino APRN [facility] [place] [address] documented as of this encounter Procedures Procedure Name Priority Date/Time Associated Diagnosis Comments FILM LIBRARY STORAGE ONLY DX ABDOMEN Routine 12/07/2017 12:00 AM EST documented in this encounter Results * Film Library- Storage Only DX Abdomen (12/07/2017 12:00 AM EST) Narrative [facility] - 04/16/2018 6:49 AM EDT This exam is for storage only and is auto-finalizing. Perez Rubalcava MD IMG FILM LIBRARY OR DERABLES [place], [place] documented in this encounter Visit Diagnoses Not on filedocumented in this encounter Care Teams Auger Supervisor Relationship Specialty Start Date End Date Luh Dyer APRN [address] [place] [address] [place] [address] PCP - General 10/08/10 10/18/19 documented as of this encounter
--- OUTSIDE RECORDS SUMMARY | 2024-10-14 13:11 | XMS_ITS | Encounter Summary ---
Author Organization [facility] [place] [address] Care Team Providers Care Pet Crematory Worker Name Role Phone Estefani Nicole MD Primary Care Provider + Encounter Details Date Type Department Care Team (Late st Contact Info) Description 02/17/2020 Telephone [place] [address] Joanne Rodrigues Social History Tobacco [...] Office Visit [facility] [place] [address] Pauline Patino APRN [facility] [place] [address] documented as of this encounter Visit Diagnoses Not on filedocumented in this encounter Care Teams Pet Crematory Worker Relationship Specialty Start Date End Date Estefani Nicole MD [address] [place] [address] PCP - General Family Medicine 10/19/19 12/22/21 documented as of this encounter
--- OUTSIDE RECORDS SUMMARY | 2024-10-14 13:11 | XMS_ITS | Encounter Summary ---
Author Organization [facility] Address [facility] [place] [address] Care Team Providers Care Claims Customer Service Representative Name Role Phone Estefani Nicole MD Primary Care Provider + Encounter Details Date Type Department Care Team (Latest Contact Info) Description 08/16/2020 8:50 AM EDT - 08/16/2020 11:59 PM EDT Hospital Encounter XRay at [address] [place] [address] Maria Del Carmen Lutz, CEMENTER HAND [address] [place] [address] Nausea and vomiting, intractability of vomiting not [...] Office Visit [place] [address] Pauline Patino APRN [facility] [place] [address] documented as of this encounter Procedures Procedure [...] ? Electronically signed by: Juliane Pendleton MD, [facility] ([phone]), at 08/16/2020 12:50 PM Narrative 08/16/2020 12:50 PM EDT EXAMINATION: XR FLUORO SMALL BOWEL ONLY CLINICAL HISTORY: nausea. SBFT ordered specifically to evaluate small intestinal transit time to cecum. ??Please evaluate for stricturing. TECHNIQUE: Prior to administration of single or contrast agent, director of pupil personnel program images of the abdomen were obtained. Single contrast small bowel follow through was performed and overhead and fluoroscopic spot films were obtained. Fluoro time: 2.15 minutes COMPARISON: CT abdomen and pelvis 06/29/2020 FINDINGS: Head Of Acquisitions: Nonobstructive bowel gas pattern. Air and fecal [...] to administration of single or contrast agent, director of pupil personnel program images of theabdomen were obtained. Single contrast small bowel follow through was performed and overheadand fluoroscopic spot films were obtained. Fluoro time: 2.15 minutes COMPARISON: CT abdomen and pelvis 06/29/2020 FINDINGS: Head Of Acquisitions: Nonobstructive bowel gas pattern. Air and fecal [...] Electronically signed by: Juliane Pendleton MD, [facility] ([phone]), at 08/16/2020 12:50 PM Maria Del Carmen Willinghamjeredloyda CEMENTER HAND IMG FLUORO ORDER JEN documented in this [...] mLs documented in this encounter Care Teams Claims Customer Service Representative Relationship Specialty Start Date End Date Estefani Nicole MD [address] [place] [address] PCP - General Family Medicine 10/19/19 12/22/21 documented as of this encounter
--- OUTSIDE RECORDS SUMMARY | 2024-10-14 13:11 | XMS_ITS | Encounter Summary ---
Author Organization [facility] [place] [address] Care Team Providers Care Supervisor Dimension Warehouse Name Role Phone Estefani Nicole MD Primary Care Provider + Encounter Details Date Type Department Care Team (Late st Contact Info) Description 09/07/2020 Telephone [place] [phone] Perez Rubalcava MD [facility] [place] [address] Social History Tobacco Use Types Packs/Day Years [...] Office Visit [place] [phone] Pauline Patino, [facility] [address] documented as of this encounter Visit Diagnoses Not on filedocumented in this encounter Care Teams Supervisor Dimension Warehouse Relationship Specialty Start Date End Date Estefani Nicole MD [address] [place] [address] PCP - General Family Medicine 10/19/19 12/22/21 documented as of this encounter
--- OUTSIDE RECORDS SUMMARY | 2024-10-14 13:11 | XMS_ITS | Encounter Summary ---
Author Organization [facility] Address [address] [place] [address] Care Team Providers Care Plant Production Manager Name Role Phone Kenia Devine MD Primary Care Provide r Encounter Details Date Type Department Care Team (Late st Contact Info) Description 07/08/2024 Lab Requisition [facility] Pathology & Laboratory Medicine - [address] [address] Thomas Dodd MD [address] [place] [address] [place] [address] Unspecified symptoms and signs involving the genitourinary system Social History Tobacco Use Types Packs/Day Years [...] Date/Time Associated Diagnosis Comments SURGICAL PATHOLOGY Today 07/07/2024 9: 43 EDT Unspecified symptoms and signs involving the genitourinary system documented in this encounter Results * SURGICAL PATHOLOGY (07/07/2024 9:43 EDT) Note to Patient The following pathology results have been interpreted by your pathologist and may be available to you before your health provider has had the opportunity to review them. Please allow time for your provider to receive these results and explore management options, if applicable. 07/13/2024 14:37 [facility] Final Diagnosis A. PROSTATE 'CHIPS', TRANSURETHRAL RESECTION (TURP): - Prostatic adenocarcinoma, Tana Score 3 + 3 = 6 (grade group 1), involving <1% tissue. - Focal high-grade prostatic intraepithelial neoplasia (HG-PIN). - Background prostatic tissue with glandular and stromal hyperplasia. - See synoptic report. 07/13/2024 14:37 [facility] Diagnosis Comment Immunoperoxidase stains were performed on this case to further characterize the lesion. ANTIBODY(CLONE)(BL OCK):RESULT PIN-4 (CK HMW + P63 + AMACR (RM)) (34Be12, 4A4, 13H4, Biocare) (A2): Positive AMACR expression with lost basal cell marker expression in prostatic adenocarcinoma. NOTE: One or more of the reagents used in immunoperoxidase testing in this case may not have been cleared or approved by the U.S. Food and Drug Administration (FDA). The FDA has determined that such clearance or approval is not necessary. These tests are used for clinical purposes. They should not be regarded as investigational or for research. These reagents' performance characteristics have been determined by [facility] and/or by the referring laboratory. The positive and negative controls worked appropriately. If immunoperoxidase staining has been performed on alcohol fixed cytology specimens, which has not been fully validated, the assays should be interpreted with caution and correlated with clinical data. This laboratory is certified under the Clinical Laboratory Improvement Amendments of 1988 (CLIA-88) as qualified to perform high complexity clinical laboratory testing. 07/13/2024 14:37 [facility] Attestation There was significant resident/fellow involvement in the diagnostic evaluation of this case. By the signature below, the attending physician certifies that they have personally conducted a gross and/or microscopic examination of the described specimens and rendered or confirmed the above diagnosis. 07/13/2024 14:37 [facility] at 1437 Synoptic PROSTATE GLAND: Transurethral Prostatic Resection (TURP), Enucleation Specimen (Simple or Subtotal Prostatectomy) PROSTATE GLAND: TRANSURETHRAL PROSTATIC RESECTION (TURP), ENUCLEATION SPECIMEN (SIMPLE OR SUBTOTAL PROSTATECTOMY) - All Specimens Protocol posted: 08/05/2023 SPECIMEN ?? Procedure: ?Transurethral resection of the prostate (TURP) TUMOR ?? Histologic Type: ?Acinar adenocarcinoma, conventional (usual) ?? Histologic Grade: ? Grade: ?Grade group 1 (Tana Score 3 + 3 = 6) ?? Intraductal Carcinoma (IDC): ?Not identified ?? Treatment Effect: ?No known presurgical therapy ?? TUMOR QUANTITATION: ? Estimated Percentage of Prostate Involved by Tumor: ?Less than 1% Lymphatic and / or Vascular Invasion: ?Not identified Perineural Invasion: ?Not identified ADDITIONAL FINDINGS Additional Findings: ?High-grade prostatic intraepithelial neoplasia (PIN) Additional Findings: ?Nodular prostatic hyperplasia 07/13/2024 14:37 [facility] Clinical History [place] 07/13/2024 14:37 [facility] Gross Description A. Received in formalin labelled with proper patient identification (initials D, B) and prostate chips is an aggregate of lewis-pink rubbery tissue fragments with a moderate amount of admixed blood clot (24.5 g, 11.5 x 7.5 x 1.3 cm). There is a small amount of admixed brown-lewis calculi (0.1 cm to 0.2 cm in greatest dimension). Steam Hand sections (approximately 40% of the tissue) are submitted in A1-A10. ELEN GREEN([facility] 07/08/2024 8:53 The remainder of the tissue is submitted in A11-A31. ELEN GREEN([facility] 07/12/2024 11:41 07/13/2024 14:37 [facility] Resident/Abhijeet w: Estephanie Shields MD PhD 07/13/2024 14:37 [facility] Performing Lab [facility] 14:37 EDT [facility] Scanned Images 07/13/2024 14:37 EDT [facility] Tissue PROSTATIC STRUCTURE / Unknown 07/07/2024 9:43 EDT 07/08/2024 8:33 EDT us Thomas Dodd MD PATHOLOGY ORDERABLES Sally spears Result [facility] [address] [place] [id number] documented in this encounter Visit Diagnoses Diagnosis Unspecified symptoms and signs involving the genitourinary system documented in this encounter Care Teams Plant Production Manager Relationship Specialty Start Date End Date Kenia Devine MD [address] [place] [address] [place] [phone] PCP - General Family Medicine - Hospital Medicine 10/22/22 documented as of this encounter
--- OUTSIDE RECORDS SUMMARY | 2024-10-14 13:11 | XMS_ITS | Referral Summary ---
Author Organization [facility] Address [address] [place] [address] Care Team Providers Care Auto Parts Counter Person Name Role Phone Kenia Devine MD Primary Care Provide r Allergies Active Allergy Reactions Criticality Noted Date Comments Hydrocodone-Acetaminophen 10/22/2022 Medications gabapentin (NEURONTIN) 100 mg capsule Take by mouth 3 times daily. 2 Active omeprazole (PRILOSEC) 40 mg capsule Take 1 Capsule by mouth. 2 Active metoprolol SUCCinate 50 mg capsule,sprinkle ,ER 24hr Take 50 mg by mouth. 2 Active SYMBICORT 80-4.5 mcg/actuation HFA aerosol inhaler inhaler INHALE 2 PUFFS BY MOUTH TWO TIMES A DAY 2 Active promethazine (PHENERGAN) 25 mg suppository INSERT ONE SUPPOSITORY RECTALLY EVERY 4 HOURS NEEDED FOR NAUSEA AND VOMITING 2 Active baclofen (LIORESAL) 10 mg tablet Take 10 mg by mouth. 1 Active mirtazapine (REMERON) 30 mg tablet 2 Active melatonin 5 mg tablet Take 2 Tablets by mouth. Active ibuprofen (MOTRIN) 800 mg tablet Take 1 Tablet by mouth. 2 Active ALBUTEROL INHL Inhale as directed. Active amitriptyline (ELAVIL) 50 mg tablet TAKE ONE TABLET BY MOUTH AT BEDTIME 30 Tablet 2 3 Active Additional Information Patient taking differently: 75 mg, Reported on 09/16/2023 metFORMIN (GLUCOPHAGE) 500 mg tablet TAKE ONE TABLET BY MOUTH EVERY DAY WITH MEALS 3 Active Social History Tobacco Use Types Packs/Day [...] EST Plan of Treatment Not on file Insurance OF [facility] Address: [address] [address] Care Teams Auto Parts Counter Person Relationship Specialty Start Date End Date Kenia Devine MD [address] [place] [address] [place] [address] PCP - General Family Medicine - Hospital Medicine 10/22/22
--- OUTSIDE RECORDS SUMMARY | 2024-10-14 13:11 | XMS_ITS | Encounter Summary ---
Author Organization [facility] Address [facility] [place] [address] Care Team Providers Care Marshmallow Runner Name Role Phone Luh Dyer APRN Primary Care Provider [phone] Reason for Visit * Reason Comments Chest Pain Encounter Details Date Type Department Care Team (Late st Contact Info) Description 12/02/2011 8:15 AM EST Office Visit [address] [place] [address] Isra Morris MD [facility] [place] [address] CAD (coronary artery disease) (Primary Dx) Social [...] Office Visit [facility] [place] [address] Pauline Patino APRN [facility] [place] [address] documented as of this encounter Procedures Procedure [...] Coronary atherosclerosis of unspecified type of vessel, beaver or graft documented in this encounter Care Teams Marshmallow Runner Relationship Specialty Start Date End Date Luh Dyer APRN [address] [place] [address] [place] [address] PCP - General 10/08/10 10/18/19 documented as of this encounter
--- OUTSIDE RECORDS SUMMARY | 2024-10-14 13:11 | XMS_ITS | Encounter Summary ---
Author Organization [facility] [place] [address] Care Team Providers Care Safety Technician Name Role Phone Estefani Nicole MD Primary Care Provider + Encounter Details Date Type Department Care Team (Late st Contact Info) Description 07/03/2020 Orders [place] [phone] Maria Del Carmen Lutz, TRAVELING REPAIR ACCOUNTANT [address] [place] [address] Nausea and vomiting, intractability of vomiting not [...] Office Visit [facility] [place] [phone] Pauline Patino, TRAVELING REPAIR ACCOUNTANT [facility] [place] [address] documented as of this encounter Results * [...] ? Electronically signed by: Juliane Pendleton MD, [facility] ([phone]), at 08/16/2020 12:50 PM Narrative 08/16/2020 12:50 PM EDT EXAMINATION: XR FLUORO SMALL BOWEL ONLY CLINICAL HISTORY: nausea. SBFT ordered specifically to evaluate small intestinal transit time to cecum. ??Please evaluate for stricturing. TECHNIQUE: Prior to administration of single or contrast agent, bale breaker operator images of the abdomen were obtained. Single contrast small bowel follow through was performed and overhead and fluoroscopic spot films were obtained. Fluoro time: 2.15 minutes COMPARISON: CT abdomen and pelvis 06/29/2020 FINDINGS: Home Care Consultant: Nonobstructive bowel gas pattern. Air and fecal [...] to administration of single or contrast agent, bale breaker operator images of theabdomen were obtained. Single contrast small bowel follow through was performed and overheadand fluoroscopic spot films were obtained. Fluoro time: 2.15 minutes COMPARISON: CT abdomen and pelvis 06/29/2020 FINDINGS: Home Care Consultant: Nonobstructive bowel gas pattern. Air and fecal [...] below. Electronically signed by: Juliane Pendleton MD, [facility] ([phone]), at 08/16/2020 12:50 PM Maria Del Carmen Lutz TRAVELING REPAIR ACCOUNTANT IMG FLUORO ORDER JEN documented in this encounter Visit Diagnoses Diagnosis Nausea and vomiting, intractability of vomiting not specified, unspecified vomiting type Nausea and vomiting, intractability of vomiting not specified, unspecified vomiting type documented in this encounter Care Teams Safety Technician Relationship Specialty Start Date End Date Estefani Nicole MD [address] [place] [address] PCP - General Family Medicine 10/19/19 12/22/21 documented as of this encounter
--- OUTSIDE RECORDS SUMMARY | 2024-10-14 13:11 | XMS_ITS | Clinical Summary ---
Author Organization [facility] Address [address] [place] [address] Care Team Providers Care Store Director Name Role Phone Kenia Devine MD [...] Last Done Comments Hepatitis C Screen 1965 COVID-19 Vaccine ( season) 2024 12/30/2021, 03/05/2021, 02/05/2021 RSV Immunization ( o r 60+ Years) (1 - 1-dose 75+ series) 2039 Insurance [facility] Care Teams Store Director Relationship Specialty Start Date End Date Kenia Devine MD [address] [place] [address] [place] [address] PCP - General Family Medicine - Hospital Medicine 10/22/22
--- OUTSIDE RECORDS SUMMARY | 2024-10-14 13:11 | XMS_ITS | Encounter Summary ---
Author Organization [facility] [place] [address] Care Team Providers Care Land Acquisition Specialist Name Role Phone Estefani Nicole MD Primary Care Provider + Encounter Details Date Type Department Care Team (Late st Contact Info) Description 06/29/2020 10:00 AM EDT Ancillary Procedure Radiology Library at [facility] [place] [address] Scar Abbott MD [facility] [place] [address] Social History Tobacco Use Types Packs/Day Years [...] Visit [facility] [place] [phone] Pauline Patino APRN [facility] [place] [address] documented as of this encounter Procedures Procedure Name Priority Date/Time Associated Diagnosis Comments FILM LIBRARY STORAGE ONLY CT ABDOMEN Routine 06/29/2020 9:56 AM EDT documented in this encounter Results * Film Library- Storage Only CT Abdomen (06/29/2020 9:56 AM EDT) Narrative [facility] - 06/29/2020 9:56 AM EDT This exam is auto-finalizing. It's purpose is for storage only. Scar Abbott MD [facility] FILM LIBRARY ORD ERABLES [facility] [place], [place] documented in this encounter Visit Diagnoses Not on filedocumented in this encounter Care Teams Land Acquisition Specialist Relationship Specialty Start Date End Date Estefani Nicole MD [facility] [place] [address] PCP - General Family Medicine 10/19/19 12/22/21 documented as of this encounter
--- OUTSIDE RECORDS SUMMARY | 2024-10-14 13:11 | XMS_ITS | Encounter Summary ---
Author Organization [facility] [place] [address] Care Team Providers Care Boiler Blower Name Role Phone Estefani Nicole MD Primary Care Provider + Encounter Details Date Type Department Care Team (Late st Contact Info) Description 08/20/2020 Telephone [place] [phone] Juan Jose Shook Social History Tobacco Use [...] Visit [facility] [place] [address] Pauline Patino, [facility] [place] [address] documented as of this encounter Visit Diagnoses Not on filedocumented in this encounter Care Teams Boiler Blower Relationship Specialty Start Date End Date Estefani Nicole MD [address] [place] [address] PCP - General Family Medicine 10/19/19 12/22/21 documented as of this encounter
--- OUTSIDE RECORDS SUMMARY | 2024-10-14 13:11 | XMS_ITS | Encounter Summary ---
Author Organization [facility] [place] [address] Care Team Providers Care Speech And Language Assistant Name Role Phone Estefani Nicole MD Primary Care Provider + Encounter Details Date Type Department Care Team (Late st Contact Info) Description 07/03/2020 Telephone [place] [address] Joanne Rodrigues Social History Tobacco [...] Office Visit [facility] [place] [address] Pauline Patino, [facility] [place] [address] documented as of this encounter Visit Diagnoses Not on filedocumented in this encounter Care Teams Speech And Language Assistant Relationship Specialty Start Date End Date Estefani Nicole MD [address] [place] [address] PCP - General Family Medicine 10/19/19 12/22/21 documented as of this encounter
--- OUTSIDE RECORDS SUMMARY | 2024-10-14 13:11 | XMS_ITS | Encounter Summary ---
Author Organization [facility] Address [facility] [place] [address] Care Team Providers Care Corsetier Name Role Phone Estefani Nicole MD Primary Care Provider + Encounter Details Date Type Department Care Team (Late st Contact Info) Description 08/31/2020 Telephone [place] [address] Kelsie Ratliff MD [facility] [place] [address] Social History Tobacco Use Types Packs/Day Years [...] MD Gastroenterology PGY-4 08/31/2020 7:35 PM Pager #[phone] documented in this encounter Plan of Treatment Upcoming Encounters Date Type Department Care Team (Late st Contact Info) Description 11/04/2024 1:00 PM EST Office Visit [place] [address] Pauline Patino APRN [facility] [place] [address] documented as of this encounter Visit Diagnoses Not on filedocumented in this encounter Care Teams Corsetier Relationship Specialty Start Date End Date Estefani Nicole MD [facility] [place] [address] PCP - General Family Medicine 10/19/19 12/22/21 documented as of this encounter
--- OUTSIDE RECORDS SUMMARY | 2024-10-14 13:12 | XMS_ITS | Encounter Summary ---
Author Organization [facility] Address [address] [place] [address] Care Team Providers Care Adding Machine Operator Name Role Phone Kenia Devine MD Primary Care Provide r Encounter Details Date Type Department Care Team (Late st Contact Info) Description 02/03/2024 Lab Requisition [facility] Pathology & Laboratory Medicine - Main [address] [address] Outr Resulting Lab, Provider Social History Tobacco [...] 30 - 100 ng/mL 02/04/2024 9:46 EDT [facility] Comment: Vitamin D 25,OH Interpretive Ranges: Deficiency: ??<10.0 ng/mL Insufficiency: ??10.0 - 30.0 ng/mL Sufficiency: ??30.0 - 100.0 ng/mL Toxicity: ??>100.0 ng/mL Blood VENOUS BLOOD / Unknown 02/03/2024 13:23 EDT 02/04/2024 0:07 EDT us Provider Outr Resulting Lab CHEMISTRY & BLOOD GA S ORDERABLES Final Result [facility] [address] [place] [address] documented in this encounter Visit Diagnoses Not on filedocumented in this encounter Care Teams Adding Machine Operator Relationship Specialty Start Date End Date Kenia Devine MD [address] [place] [address] [place] [address] PCP - General Family Medicine - Hospital Medicine 10/22/22 documented as of this encounter
--- OUTSIDE RECORDS SUMMARY | 2024-10-14 13:12 | XMS_ITS | Encounter Summary ---
Author Organization [facility] Address [address] [place] [address] Care Team Providers Care Carpet Mechanic Name Role Phone Kenia Devine MD Primary Care Provide r Encounter Details Date Type Department Care Team (Late st Contact Info) Description 10/09/2023 Lab Requisition [facility] Pathology & Laboratory Medicine - Main [address] [address] Outr Resulting Lab, Provider Social History Tobacco [...] 30 - 100 ng/mL 10/12/2023 10:52 EST [facility] Comment: Vitamin D 25,OH Interpretive Ranges: Deficiency: ??<10.0 ng/mL Insufficiency: ??10.0 - 30.0 ng/mL Sufficiency: ??30.0 - 100.0 ng/mL Toxicity: ??>100.0 ng/mL Blood VENOUS BLOOD / Unknown 10/09/2023 14:32 EST 10/09/2023 21:06 EST us Provider Outr Resulting Lab CHEMISTRY & BLOOD GA S ORDERABLES Final Result [facility] [address] [place] [address] documented in this encounter Visit Diagnoses Not on filedocumented in this encounter Care Teams Carpet Mechanic Relationship Specialty Start Date End Date Kenia Devine MD [address] [place] [address] [place] [address] PCP - General Family Medicine - Hospital Medicine 10/22/22 documented as of this encounter
--- OUTSIDE RECORDS SUMMARY | 2024-10-14 13:12 | XMS_ITS | Encounter Summary ---
Author Organization [facility] Address [address] [place] [address] Care Team Providers Care Production Engine Repairer Name Role Phone Unavailable Primary Care Provider Unavailabl e Encounter Details Date Type Department Care Team (Latest Contact Info) Description 01/30/2010 13:54 EDT - 01/30/2010 23:59 EDT Hospital Encounter [facility] Neurophysiology - [facility] ([address]) [address] [place], [place] [id number] Unknown, Provider, Perez Pelayo MD Emg, Discharge Disposition: Auto Discharge Social History Tobacco [...]
--- OUTSIDE RECORDS SUMMARY | 2024-10-14 13:12 | XMS_ITS | Encounter Summary ---
Author Organization [facility] Address [address] [place] [address] Care Team Providers Care Director Compliance Name Role Phone Kenia Devine MD Primary Care Provide r Encounter Details Date Type Department Care Team (Late st Contact Info) Description 10/27/2022 Orders Only [facility] Gastroenterology - [facility] [address] [place] [address] Najma Freeman, RN [address] [place] [address] Social History Tobacco Use Types Packs/Day Years [...] filedocumented in this encounter Care Teams Director Compliance Relationship Specialty Start Date End Date Kenia Devine MD [address] [place] [address] [place] [phone] PCP - General Family Medicine - Hospital Medicine 10/22/22 documented as of this encounter
--- OUTSIDE RECORDS SUMMARY | 2024-10-14 13:12 | XMS_ITS | Encounter Summary ---
Author Organization [facility] Address [address] [place] [address] Care Team Providers Care Animal Technician Name Role Phone Kenia Devine MD Primary Care Provide r Reason for Visit * Reason Comments Medications Refill Encounter Details Date Type Department Care Team (Late st Contact Info) Description 01/24/2023 Refill [facility] Gastroenterology - [address] [address] Bhavana Lopez, JAILOR [address] [facility], [address] [place] [phone] Medications Refill Social History Tobacco Use Types [...] of this encounter Ordered Prescriptions Prescription Sig Dispense Quantity Refills Last Filled Start Date End Date amitriptyline (ELAVIL) 50 mg tablet TAKE ONE TABLET BY MOUTH AT BEDTIME 30 Tablet 2 01/26/2023 3 documented in this encounter Miscellaneous Notes * [...] documented as of this encounter Care Teams Animal Technician Relationship Specialty Start Date End Date Kenia Devine MD [address] [place] [address] [place] [phone] PCP - General Family Medicine - Hospital Medicine 10/22/22 documented as of this encounter
--- OUTSIDE RECORDS SUMMARY | 2024-10-14 13:12 | XMS_ITS | Encounter Summary ---
Author Organization [facility] Address [address] [place] [address] Care Team Providers Care Quality Inspector Name Role Phone Kenia Devine MD Primary Care Provide r Reason for Visit * Reason Onset Date Comments Medication Management 11/21/2022 Follow-up 11/21/2022 Encounter Details Date Type Department Care Team (Late st Contact Info) Description 11/21/2022 Telephone [facility] Gastroenterology - [facility] [address] [place], [place] [phone] Bhavana Lopez, MIXED CROP FARMER [address] [facility], [address] [place] [address] Medication Management; Follow-up Social History [...] Encounter - Najma Freeman RN - 11/28/2022 1793 EST Call made to Joe, mailbox is [...] on filedocumented in this encounter Care Teams Quality Inspector Relationship Specialty Start Date End Date Kenia Devine MD [address] [place] [address] [place] [address] PCP - General Family Medicine [facility] Medicine 10/22/22 documented as of this encounter
--- OUTSIDE RECORDS SUMMARY | 2024-10-14 13:12 | XMS_ITS | Encounter Summary ---
Author Organization [facility] Address [address] [place] [address] Care Team Providers Care Quality Control Lead Name Role Phone Kenia Devine MD Primary Care Provide r Reason for Visit * Reason Onset Date Comments Follow-up 10/27/2022 Encounter Details Date Type Department Care Team (Late st Contact Info) Description 10/27/2022 Telephone [facility] Gastroenterology - [facility] [address] [place] [address] Najma Freeman, RN [address] [place] [address] Follow-up Social History Tobacco Use Types Packs/Day [...] Notes * Telephone Encounter - Najma Freeman, RN - 10/27/2022 1622 EST Patient called regarding suggestions per Bhavana Lopez NP to 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 Per patient would like them mailed to him. 1700 Letter with recommendations by Bhavana Lopez STOCK HANGER sent to patient. Address confirmed by patient prior to sending. documented in this encounter Plan of Treatment Not on file documented as of this encounter Visit Diagnoses Not on filedocumented in this encounter Care Teams Quality Control Lead Relationship Specialty Start Date End Date Kenia Devine MD [address] [place] [address] [place] [phone] PCP - General Family Medicine - Hospital Medicine 10/22/22 documented as of this encounter
--- OUTSIDE RECORDS SUMMARY | 2024-10-14 13:12 | XMS_ITS | Encounter Summary ---
Author Organization [facility] Address [address] [place] [address] Care Team Providers Care Advanced Practice Psychiatric Nurse Name Role Phone Kenia Devine MD Primary Care Provide r Encounter Details Date Type Department Care Team (Late st Contact Info) Description 10/28/2022 Orders Only [facility] Gastroenterology - [address] [address] Najma Freeman, RN [address] [place] [address] Social History Tobacco Use Types Packs/Day Years [...] End Date amitriptyline (ELAVIL) 50 mg tablet Take 1 Tablet by mouth at bedtime. 30 Tablet 2 10/28/2022 01/26/2023 amitriptyline (ELAVIL) 50 mg tablet Take 1 Tablet by mouth at bedtime. 30 Tablet 2 10/28/2022 10/28/2022 documented in this encounter Progress Notes * Najma Freeman, RN - 10/28/2022 1302 EST Patient called to let him know that letter with recommendations from Bhavana sent in mail. Prescription sent to [facility]. documented in this encounter Plan of Treatment Not on file documented as of this encounter Visit Diagnoses Not on filedocumented in this encounter Discontinued Medications Medication Sig Discontinue Reason Start Date End Da te amitriptyline (ELAVIL) 50 mg tablet Take 1 Tablet by mouth at bedtime. 10/28/2022 10/28/2022 documented as of this encounter Care Teams Advanced Practice Psychiatric Nurse Relationship Specialty Start Date End Date Kenia Devine MD [address] [place] [address] [place] [address] PCP - General Family Medicine - Hospital Medicine 10/22/22 documented as of this encounter
--- OUTSIDE RECORDS SUMMARY | 2024-10-14 13:12 | XMS_ITS | Encounter Summary ---
Author Organization [facility] Address [address] [place] [address] Care Team Providers Care Amplifier Mechanic Name Role Phone Kenia Devine MD Primary Care Provide r Reason for Referral * (Routine/Next Available) - Receiving Office to Obtain Authorization Specialty Diagnoses / Procedures Referred By Contac t Referred To Contact Procedures CT OUTSIDE IMAGES CHEST Unknown, MD Dary Referral ID Status Reason Start Date Expiration Date Visits Requested Visits Authorized [id number] Receiving Office to Obtain Authorization 10/19/2023 1 1 Reason for Visit * (Routine/Next Available) - Receiving Office to Obtain Authorization Specialty Diagnoses / Procedures Referred By Dasia t Referred To Contact Procedures CT OUTSIDE IMAGES CHEST Unknown, MD Dary Referral ID Status Reason Start Date Expiration Date Visits Requested Visits Authorized [id number] Receiving Office to Obtain Authorization 10/19/2023 1 1 Encounter Details Date Type Department Care Team (Latest Contact Info) Description 08/18/2023 - 08/18/2023 23:59 EDT Hospital Encounter [facility] Secondary Reads [place] Discharge Disposition: Home or [...] this encounter Medications at Time of Discharge ALBUTEROL INHL Inhale as directed. amitriptyline (ELAVIL) [...] Tablets by mouth. metoprolol SUCCinate 50 mg capsule,sprinkle, ER 24hr Take 50 mg by mouth. 06/04/2022 [...] 16:07 EST This is a non-reportable exam. us Provider Unknown MD GOETZ OTHER IMAGING ORDERABLES Final Result documented in this encounter Visit Diagnoses Not on filedocumented in this encounter Care Teams Amplifier Mechanic Relationship Specialty Start Date End Date Kenia Devine MD [address] [place] [address] [place] [phone] PCP - General Family Medicine - Hospital Medicine 10/22/22 documented as of this encounter
--- OUTSIDE RECORDS SUMMARY | 2024-10-14 13:12 | XMS_ITS | Encounter Summary ---
Author Organization [facility] Address [address] [place] [address] Care Team Providers Care Automotive Teacher Name Role Phone Kenia Devine MD Primary Care Provide r Encounter Details Date Type Department Care Team (Late st Contact Info) Description 01/25/2020 Lab Requisition [facility] Pathology & Laboratory Medicine - [facility] [address] [place] [address] David Clemens MD [address] [place] [phone] Encounter for other general examination Social History [...] - Suggestive of hyperplastic polyp. 01/26/2020 11:01 [facility] at [address] Clinical History Pyloric stenosis, history of polyps. Gastric polyps, colon polyps. 01/26/2020 11:01 [facility] Attestation By the signature below, the attending physician certifies that they have 1) personally conducted a gross and/or microscopic examination of the described specimen(s), and/or personally interpreted the results of laboratory testing of the described specimen(s), and 2) personally rendered or confirmed the above diagnosis. 01/26/2020 11:01 [facility] at [address] Gross Description A. [...] D1. MIHRAB ALI 01/26/2020 21:35 01/26/2020 11:01 [facility] Scanned Images 01/26/2020 11:01 [facility] Tissue ENTIRE SIGMOID COLON / Unknown 01/25/2020 9:45 EDT 01/25/2020 21:23 EDT Tissue specimen (specimen) ESOPHAGEAL STRUCTURE / Unknown 01/25/2020 9:45 EDT 01/25/2020 21:23 EDT Tissue specimen (specimen) RIGHT COLON STRUCTURE / Unknown 01/25/2020 9:45 EDT 01/25/2020 21:23 EDT Tissue specimen (specimen) SIGMOID COLON STRUCTURE / Unknown 01/25/2020 9:45 EDT 01/25/2020 21:23 EDT us David Clemens MD PATHOLOGY ORDERABLES Final Res ult [facility] [address] [place] [address] documented in this encounter Visit Diagnoses Diagnosis Encounter for other general examination documented in this encounter Care Teams Automotive Teacher Relationship Specialty Start Date End Date Kenia Devine MD [address] [place] [address] [place] [phone] PCP - General Family Medicine - Hospital Medicine 10/22/22 documented as of this encounter
--- OUTSIDE RECORDS SUMMARY | 2024-10-14 13:12 | XMS_ITS | Encounter Summary ---
Author Organization [facility] Address [address] [place] [address] Care Team Providers Care Inspector Outside Production Name Role Phone Unavailable Primary Care Provider Unavailabl e Reason for Visit * (Routine/Next Available) - Receiving Office to Obtain Authorization Specialty Diagnoses / Procedures Referred By Dasia phelps Referred To Contact Procedures US OUTSIDE IMAGES BODY Unknown, Provider, MD Referral ID Status Reason Start Date Expiration Date Visits Requested Visits Authorized [id number] Receiving Office to Obtain Authorization 09/22/2022 1 1 Encounter Details Date Type Department Care Team (Latest Contact Info) Description 09/09/2022 - 09/09/2022 23:59 EDT Hospital Encounter [facility] Secondary Reads [place] Discharge Disposition: Home [...] this encounter Medications at Time of Discharge baclofen (LIORESAL) 10 mg tablet Take 10 mg by mouth. 10/17/2021 ibuprofen (MOTRIN) 800 mg tablet Take 1 Tablet by mouth. 05/01/2022 metoprolol SUCCinate 50 mg capsule,sprinkle, ER 24hr Take 50 mg by mouth. 06/04/2022 omeprazole (PRILOSEC) 40 mg capsule Take 1 Capsule by mouth. 05/01/2022 escitalopram oxalate (LEXAPRO) 20 mg tablet Take 20 mg by mouth. 08/12/2022 11/10/2022 risperiDONE (RISPERDAL) 1 mg tablet Take 1 mg by mouth. 08/12/2022 11/10/2022 documented as of this encounter Discharge Disposition [...] 10:54 EST This is a non-reportable exam. us Provider Unknown MD GOETZ OTHER IMAGING ORDERABLES Final Result documented in this encounter Visit Diagnoses Not on filedocumented in this encounter
--- OUTSIDE RECORDS SUMMARY | 2024-10-14 13:12 | XMS_ITS | Encounter Summary ---
Author Organization [facility] Address [address] [place] [address] Care Team Providers Care Workers' Compensation Hearings Officer Name Role Phone Kenia Devine MD Primary Care Provide r Encounter Details Date Type Department Care Team (Late st Contact Info) Description 11/24/[address] [facility] Gastroenterology - [facility] [address] [place] [address] Najma Freeman, RN [address] [place] [address] Social History Tobacco Use Types Packs/Day Years [...] on filedocumented in this encounter Care Teams Workers' Compensation Hearings Officer Relationship Specialty Start Date End Date Kenia Devine MD [address] [place] [address] [place] [phone] PCP - General Family Medicine - Hospital Medicine 10/22/22 documented as of this encounter
--- OUTSIDE RECORDS SUMMARY | 2024-10-14 13:12 | XMS_ITS | Encounter Summary ---
Author Organization [facility] Address [address] [place] [address] Care Team Providers Care Supervisor Electronics Assembly Name Role Phone Unavailable Primary Care Provider Unavailabl e Encounter Details Date Type Department Care Team (Latest Contact Info) Description 06/25/2018 17:43 EDT - 06/25/2018 23:59 EDT Hospital Encounter [address] [address] Unknown, Provider, MD Discharge Disposition: Home or Self Care Social History Tobacco Use Types Packs/Day Years Used Date Smoking Tobacco: Never Assessed Sex and Gender Information Value Date Recorded Sex Assigned at Not on file Legal Sex Male 18:14 EST Gender Identity Male 03/13/2020 14:52 EDT Sexual Orientation Not on file documented as of this encounter Discharge Disposition Disposition Code Departure Means Destination Home or Self Usp documented in this encounter Plan of Treatment Not on file documented as of this encounter Visit Diagnoses Not on filedocumented in this encounter
--- OUTSIDE RECORDS SUMMARY | 2024-10-14 13:12 | XMS_ITS | Encounter Summary ---
Author Organization [facility] Address [address] [place] [address] Care Team Providers Care Fine Arts Chair Name Role Phone Kenia Devine MD Primary Care Provide r Reason for Visit * Reason Onset Date Comments Emesis 10/24/2022 Encounter Details Date Type Department Care Team (Late st Contact Info) Description 10/24/2022 Telephone [facility] Gastroenterology - [address] [phone] Bhavana Lopez NP 111 [facility], [address] [place] [address] Emesis Social History Tobacco Use [...] Encounter - Bhavana Lopez NP - 10/24/2022 2804 EST LVMTCB--if patient calls back please relay: [...] on filedocumented in this encounter Care Teams Fine Arts Chair Relationship Specialty Start Date End Date Kenia Devine MD [address] [place] [address] [place] [phone] PCP - General Family Medicine - [facility] 10/22/22 documented as of this encounter
--- OUTSIDE RECORDS SUMMARY | 2024-10-14 13:12 | XMS_ITS | Encounter Summary ---
Author Organization [facility] Address [address] [place] [address] Care Team Providers Care Ham Curer Name Role Phone Unavailable Primary Care Provider Unavailabl e Encounter Details Date Type Department Care Team (Late st Contact Info) Description 05/12/2019 Results Only [facility] [phone] Catherine Knapp MD [address] [place] [phone] Social History Tobacco Use Types Packs/Day [...] ? EUGENIA GARCIA ? Accession #: ? [id number] ? : ? 1965 (Age: 53) ??M ? Collect Date: ? 05/12/2019 ? Location: ? [facility] ? Receive Date: ? 05/13/2019 ? Provider: CATHERINE KNAPP II, MD Copy to: ? Final Pathologic Diagnosis: STOMAH, PYORUS, BIOPSY: - Antral type mucosa with no specific pathologic features. - Negative for H. 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 ELEN Burden ([facility]) 05/16/2019 7:34 AM End of Report [facility] 05/12/2019 8:19 EDT 05/13/2019 8:19 EDT us Catherine Knapp MD PATHOLOGY ORDERABLES Final Re sult [facility] [address] [place] [address] documented in this encounter Visit Diagnoses Not on filedocumented in this encounter
--- OUTSIDE RECORDS SUMMARY | 2024-10-14 13:12 | XMS_ITS | Encounter Summary ---
Author Organization [facility] Address [address] [place] [address] Care Team Providers Care Corn Cutter Name Role Phone Kenia Devine MD Primary Care Provide r Reason for Visit * Reason Comments Medications Refill Encounter Details Date Type Department Care Team (Late st Contact Info) Description 07/15/2023 Refill [facility] Gastroenterology - [address] [address] Bhavana Lopez, AIRPLANE PILOT HELPER 111 [facility], [address] [place] [phone] Medications Refill Social History Tobacco Use Types [...] documented as of this encounter Care Teams Corn Cutter Relationship Specialty Start Date End Date Kenia Devine MD [address] [place] [address] [place] [phone] PCP - General Family Medicine - Hospital Medicine 10/22/22 documented as of this encounter
--- OUTSIDE RECORDS SUMMARY | 2024-10-14 13:12 | XMS_ITS | Encounter Summary ---
Author Organization [facility] Address [address] [place] [address] Care Team Providers Care Lap Polisher Name Role Phone Unavailable Primary Care Provider Unavailabl e Reason for Visit * (Routine/Next Available) - Receiving Office to Obtain Authorization Specialty Diagnoses / Procedures Referred By Dasia phelps Referred To Contact Procedures MR OUTSIDE IMAGES BODY Unknown, Provider, MD Referral ID Status Reason Start Date Expiration Date Visits Requested Visits Authorized [id number] Receiving Office to Obtain Authorization 09/22/2022 1 1 Encounter Details Date Type Department Care Team (Latest Contact Info) Description 09/19/2022 - 09/19/2022 23:59 EDT Hospital Encounter [facility] Secondary Reads [place] Discharge Disposition: Home [...] tablet Take 20 mg by mouth. 08/12/2022 2 risperiDONE (RISPERDAL) 1 mg tablet Take 1 mg by mouth. 08/12/2022 2 documented as of this encounter Discharge Disposition [...]
--- OUTSIDE RECORDS SUMMARY | 2024-10-14 13:12 | XMS_ITS | Encounter Summary ---
Author Organization [facility] Address [address] [place] [address] Care Team Providers Care Market Intelligence Consultant Name Role Phone Kenia Devine MD Primary Care Provide r Reason for Visit * Reason Comments Medications Refill Encounter Details Date Type Department Care Team (Late st Contact Info) Description 04/21/2023 Refill [facility] Gastroenterology - [address] [address] Bhavana Lopez, MEETING COORDINATOR 111 [facility], [address] [place] [phone] Medications Refill Social History Tobacco Use Types [...] MOUTH AT BEDTIME 30 Tablet 2 04/27/2023 3 documented in this encounter Miscellaneous Notes [...] documented as of this encounter Care Teams Market Intelligence Consultant Relationship Specialty Start Date End Date Kenia Devine MD [address] [place] [address] [place] [phone] PCP - General Family Medicine - Hospital Medicine 10/22/22 documented as of this encounter
--- OUTSIDE RECORDS SUMMARY | 2024-10-14 13:12 | XMS_ITS | Encounter Summary ---
Author Organization [facility] Address [address] [place] [address] Care Team Providers Care Meter Supervisor Name Role Phone Unavailable Primary Care Provider Unavailabl e Encounter Details Date Type Department Care Team (Late st Contact Info) Description 06/25/2018 Results Only [facility] [phone] Hernandez Clemens MD [address] [place] [address] Social History Tobacco Use Types [...] ? EUGENIA GARCIA ? Accession #: ? [id number] ? : ? 1965 (Age: 52) ??M ? Collect Date: ? 06/25/2018 ? Location: ? [facility] ? Receive Date: ? 06/25/2018 ? Provider: DAVID CLEMENS MD Copy to: Bernardo BUENROSTRO PLANT SAFETY LEADER ? Final Pathologic Diagnosis: A. STOMACH, POLYPECTOMY: [...] (ASCP) 06/28/2018 7:54 AM End of Report [facility] 06/25/2018 22:3 8 EDT 06/25/2018 22:38 EDT us David Clemens MD PATHOLOGY ORDERABLES Final Res ult [facility] [address] [place] [address] documented in this encounter Visit Diagnoses Not on filedocumented in this encounter
--- OUTSIDE RECORDS SUMMARY | 2024-10-14 13:12 | XMS_ITS | Encounter Summary ---
Author Organization [facility] Address [address] [place] [address] Care Team Providers Care Moto Mix Operator Name Role Phone Kenia Devine MD Primary Care Provide r Reason for Referral * (Routine/Next Available) - Receiving Office to Obtain Authorization Specialty Diagnoses / Procedures Referred By Contac t Referred To Contact Procedures CT OUTSIDE IMAGES CHEST Unknown, MD Dary Referral ID Status Reason Start Date Expiration Date Visits Requested Visits Authorized [id number] Receiving Office to Obtain Authorization 10/19/2023 1 1 Reason for Visit * (Routine/Next Available) - Receiving Office to Obtain Authorization Specialty Diagnoses / Procedures Referred By Dasia t Referred To Contact Procedures CT OUTSIDE IMAGES CHEST Unknown, MD Dary Referral ID Status Reason Start Date Expiration Date Visits Requested Visits Authorized [id number] Receiving Office to Obtain Authorization 10/19/2023 1 1 Encounter Details Date Type Department Care Team (Latest Contact Info) Description 04/20/2023 - 04/20/2023 23:[address] [facility] Secondary Reads [place] Discharge Disposition: Home [...] of Discharge ALBUTEROL INHL Inhale as directed. baclofen (LIORESAL) [...] BEDTIME 30 Tablet 2 01/26/2023 3 documented as of this encounter Discharge Disposition [...] is a non-reportable exam. us Provider Unknown IMJuana OTHER IMAGING ORDERABLES Final Result documented in this encounter Visit Diagnoses Not on filedocumented in this encounter Care Teams Moto Mix Operator Relationship Specialty Start Date End Date Kenia Devine MD [address] [place] [address] [place] [phone] PCP - General Family Medicine - Hospital Medicine 10/22/22 documented as of this encounter
--- OUTSIDE RECORDS SUMMARY | 2024-10-14 13:12 | XMS_ITS | Encounter Summary ---
Author Organization [facility] Address [address] [place] [address] Care Team Providers Care Recruiting Administrator Name Role Phone Kenia Devine MD Primary Care Provide r Encounter Details Date Type Department Care Team (Late st Contact Info) Description 05/26/2023 Lab Requisition [facility] Pathology & Laboratory Medicine - Main [address] [address] Outr Resulting Lab, Provider Social History Tobacco [...] Factor <8.6 <12.0 IU/mL 05/27/2023 21:44 EDT [facility] Blood VENOUS BLOOD / Unknown 05/26/2023 16:21 EDT 05/27/2023 21:20 EDT us Provider Outr Resulting Lab CHEMISTRY & BLOOD GA S ORDERABLES Final Result [facility] [address] [place] [address] documented in this encounter Visit Diagnoses Not on filedocumented in this encounter Care Teams Recruiting Administrator Relationship Specialty Start Date End Date Kenia Devine MD [address] [place] [address] [place] [phone] PCP - General Family Medicine - Hospital Medicine 10/22/22 documented as of this encounter
--- OUTSIDE RECORDS SUMMARY | 2024-10-14 13:12 | XMS_ITS | Encounter Summary ---
Author Organization [facility] Address [address] [place] [address] Care Team Providers Care Concrete Bucket Hooker Name Role Phone Kenia Devine MD Primary Care Provide r Reason for Visit * Reason Onset Date Comments Medication Management 11/28/2022 Follow-up 11/28/2022 Encounter Details Date Type Department Care Team (Late st Contact Info) Description 11/28/2022 Telephone [facility] Gastroenterology - [facility] [address] [place] [address] Najma Freeman, RN [address] [place] [address] Medication Management; Follow-up Social History Tobacco Use [...] Telephone Encounter - Najma Freeman, ISREAL - 12/11/2022 4347 EST Spoke with PCP office regarding medications [...] filedocumented in this encounter Care Teams Concrete Bucket Hooker Relationship Specialty Start Date End Date Kenia Devine MD [address] [place] [address] [place] [phone] PCP - General Family Medicine - Hospital Medicine 10/22/22 documented as of this encounter
--- OUTSIDE RECORDS SUMMARY | 2024-10-14 13:12 | XMS_ITS | Encounter Summary ---
Author Organization [facility] Address [address] [place] [address] Care Team Providers Care Medical Support Specialist Name Role Phone Unavailable Primary Care Provider Unavailabl e Reason for Visit * Reason Onset Date Comments Advice Only 10/11/2014 Encounter Details Date Type Department Care Team (Late st Contact Info) Description 10/11/2014 Telephone [facility] Interventional Pain [address] [place], [place] [phone] Amari Tucker, RN [address] [place] [address] Advice Only Social History Tobacco Use Types Packs/Day Years Used Date Smoking Tobacco: Never Assessed Sex and Gender Information Value Date Recorded Sex Assigned at Not on file Legal Sex Male 18:14 EST Gender Identity Male 03/13/2020 14:52 EDT Sexual Orientation Not on file documented as of this encounter Miscellaneous Notes * Telephone Encounter - Amari Tucker RN - 10/19/2014 0959 EST . documented in this encounter Plan of Treatment Not on file documented as of this encounter Visit Diagnoses Not on filedocumented in this encounter
--- OUTSIDE RECORDS SUMMARY | 2024-10-14 13:12 | XMS_ITS | Encounter Summary ---
Author Organization [facility] Address [address] [place] [address] Care Team Providers Care Campground Hand Name Role Phone Unavailable Primary Care Provider Unavailabl e Reason for Visit * Reason Onset Date Comments Appointment Related 03/01/2020 Encounter Details Date Type Department Care Team (Late st Contact Info) Description 03/01/2020 Telephone [facility] Gastroenterology - [address] [phone] Onur Flowers MD 111 [facility], [address] [place] [address] Appointment Related Social History Tobacco [...]
--- OUTSIDE RECORDS SUMMARY | 2024-10-14 13:12 | XMS_ITS | Encounter Summary ---
Author Organization [facility] Address [address] [place] [address] Care Team Providers Care Music Critic Name Role Phone Unavailable Primary Care Provider Unavailabl e Encounter Details Date Type Department Care Team (Latest Contact Info) Description 02/02/2015 15:50 EDT - 02/02/2015 23:59 EDT Hospital Encounter [address] [address] Unknown, Provider, MD Discharge Disposition: Home or [...] Code Departure Means Destination Home or Self Correction documented in this encounter Plan of Treatment Not on file documented as of this encounter Visit Diagnoses Not on filedocumented in this encounter
--- OUTSIDE RECORDS SUMMARY | 2024-10-14 13:12 | XMS_ITS | Encounter Summary ---
Author Organization [facility] Address [address] [place] [address] Care Team Providers Care Row Boss Name Role Phone Kenia Devine MD Primary Care Provide r Reason for Visit * Reason Comments New Patient Visit Nausea - vomiting * Consult (Routine) - Receiving Office to Obtain Authorization Specialty Diagnoses / Procedures Referred By Contac t Referred To Contact Diagnoses Nausea with vomiting, unspecified Kenia Devine MD [address] [place] [phone] Phone: tel: fax: [facility] Gastroenterology [address] [address] Phone: tel: fax: Referral ID Status Reason Start Date Expiration Date Visits Requested Visits Authorized [id number] Receiving Office to Obtain Authorization Second Opinion 1 1 Encounter Details Date Type Department Care Team (Late st Contact Info) Description 10/22/2022 9:[address] [facility] Gastroenterology [address] [phone] Bhavana Lopez, HOT MILL OPERATOR 111 [facility], [facility] [address] [place] [address] Cyclic vomiting syndrome (Primary Dx); [...] 126.9 kg (279 lb 12. 8 oz) 10/22/2022 09 EST Height 177.8 cm (5' 10) 10/22/2022906 [...] Progress Notes * Bhavana Lopez NP - 10/22/2022 0920 EST Gastroenterology & Hepatology Initial Visit Reason for Referral: Nausea and vomiting PCP: Luh Dyer This note was dictated using Amperion software for dictation, therefore please excuse any inadvertentdictation errors in this note. Impression: Extensive work-up unrevealing of etiology for intractable episodes of nausea and vomiting. No additional work-up indicated. Symptoms continue to be consistent with cyclic vomiting syndrome. Patient has tried a number of medications with [facility] as outlined below and [...] coenzyme Q10 --Will investigate ongoing trials at [facility] (ketamine infusions?) for cyclic vomiting syndrome and [...] regarding nausea and vomiting. Patient seen at [facility] and is here for a second [...] risperidone, sertraline Pertinent labs, imaging, procedures: From [facility] chart review: 1. ABD u/s 03/27/18; normal findings 2. CT scan abd/pelvis with contrast 01/17/18 ([facility]); lung nodule- otherwise unrevealing 3. EGD 07/06/18 [facility]; pyloric stenosis with balloon diltation. 4. Colonoscopy by Dr. lCemens 5. A1c, 8 AM cortisol, TSH, TTG [...] may reflect changes made after this encounter. ALBUTEROL INHL Inhale as directed. ibuprofen (MOTRIN) [...] A DAY 10/10/2022 metoprolol SUCCinate 50 mg capsule,sprinkle, ER 24hr Take 50 mg by mouth. 06/04/2022 omeprazole (PRILOSEC) 40 mg capsule Take 1 Capsule by mouth. 05/01/2022 gabapentin (NEURONTIN) 100 mg capsule Take by mouth 3 times daily. 10/08/2022 risperiDONE (RISPERDAL) 1 mg tablet Take 1 mg by mouth. 08/12/2022 2 escitalopram oxalate (LEXAPRO) 20 mg tablet Take 20 mg by mouth. 08/12/2022 2 amitriptyline (ELAVIL) 25 mg tablet 10/13/2022 2 added in this encounter Care Teams Row Boss Relationship Specialty Start Date End Date Kenia Devine MD [address] [place] [address] [place] [address] PCP - General Family Medicine - Hospital Medicine 10/22/22 documented as of this encounter
--- OUTSIDE RECORDS SUMMARY | 2024-10-14 13:12 | XMS_ITS | Encounter Summary ---
Author Organization [facility] Address [address] [place] [address] Care Team Providers Care Dental Nurse Name Role Phone Unavailable Primary Care Provider Unavailabl e Encounter Details Date Type Department Care Team (Late st Contact Info) Description 02/02/2015 Results Only [facility] Laboratory Services - [facility] ([facility] [address] [place], [place] [phone] David Clemens MD [address] [place] [address] Social History Tobacco Use Types [...] ? EUGENIA GARCIA ? Accession #: ? [id number] ? : ? 1965 (Age: 49) ??M [...] Meza 02/05/2015 8:03 AM End of Report [facility] 02/02/2015 6:59 EDT 02/02/2015 6:59 EDT us David Clemens MD PATHOLOGY ORDERABLES Final Res ult [facility] [address] [place] [address] documented in this encounter Visit Diagnoses Not on filedocumented in this encounter
--- OUTSIDE RECORDS SUMMARY | 2024-10-14 13:12 | XMS_ITS | Encounter Summary ---
Author Organization [facility] Address [address] [place] [address] Care Team Providers Care Reinforcer Name Role Phone Kenia Devine MD Primary Care Provide r Reason for Visit * Reason Comments Follow-up Cyclic vomiting synd marry Encounter Details Date Type Department Care Team (Late st Contact Info) Description 09/16/2023 10:40 EDT Office Visit [facility] Gastroenterology - [address] [phone] Bhavana Lopez, TREE DEADENER 111 [facility], [address] [place] [address] Cyclic vomiting syndrome (Primary Dx) [...] sertraline ?? Pertinent labs, imaging, procedures: From [facility] chart review: 1. ABD u/s 03/27/18; normal findings 2. CT scan abd/pelvis with contrast 01/17/18 ([facility]); lung nodule- otherwise unrevealing 3. EGD 07/06/18 [facility]; pyloric stenosis with balloon diltation. [...] may reflect changes made after this encounter. metFORMIN (GLUCOPHAGE) 500 mg tablet TAKE ONE TABLET BY MOUTH EVERY DAY WITH MEALS 08/22/2023 added in this encounter Care Teams Reinforcer Relationship Specialty Start Date End Date Kenia Devine MD [address] [place] [address] [place] [phone] PCP - General Family Medicine - [facility] Medicine 10/22/22 documented as of this encounter
--- OUTSIDE RECORDS SUMMARY | 2024-10-14 13:12 | XMS_ITS | Encounter Summary ---
Author Organization [facility] Address [address] [place] [address] Care Team Providers Care Cereal Popper Name Role Phone Kenia Devine MD Primary Care Provide r Encounter Details Date Type Department Care Team (Late st Contact Info) Description 10/24/2022 Orders Only [facility] Gastroenterology - [address] [address] Bhavana Lopez, VARITYPE OPERATOR 111 [facility], [address] [place] [address] Social History Tobacco Use Types Packs/Day Years [...] documented as of this encounter Care Teams Cereal Popper Relationship Specialty Start Date End Date Kenia Devine MD [address] [place] [address] [place] [phone] PCP - General Family Medicine - [facility] Medicine 10/22/22 documented as of this encounter
--- OUTSIDE RECORDS SUMMARY | 2024-10-14 13:12 | XMS_ITS | Encounter Summary ---
Author Organization [facility] Address [address] [place] [address] Care Team Providers Care Table Inspector Name Role Phone Kenia Devine MD Primary Care Provide r Reason for Visit * Reason Onset Date Comments Follow-up 10/28/2022 Encounter Details Date Type Department Care Team (Late st Contact Info) Description 10/28/2022 Telephone [facility] Gastroenterology - [facility] [address] [place] [address] Najma Freeman, RN [address] [place] [address] Follow-up Social History Tobacco Use Types Packs/Day [...] Telephone Encounter - Najma Freeman, RN - 10/28/2022 1629 EST Patient called to confirm medication sent to preferred pharmacy, [facility] no [facility] there, prescription resent to [facility] in [place] . documented in this encounter Plan of Treatment Not on file documented as of this encounter Visit Diagnoses Not on filedocumented in this encounter Care Teams Table Inspector Relationship Specialty Start Date End Date Kenia Devine MD [address] [place] [address] [place] [phone] PCP - General Family Medicine - Hospital Medicine 10/22/22 documented as of this encounter
--- OUTSIDE RECORDS SUMMARY | 2024-10-14 13:12 | XMS_ITS | Encounter Summary ---
Author Organization [facility] Address [address] [place] [address] Care Team Providers Care Manager Mobility Name Role Phone Kenia Devine MD Primary Care Provide r Encounter Details Date Type Department Care Team (Late st Contact Info) Description 10/30/2022 Lab Requisition [facility] Pathology & Laboratory Medicine - [address] [address] Tamir Pride MD [address], [place] [id number] Encounter for other general examination Social History [...] explore management options, if applicable. 11/04/2022 10:55 [facility] Final Diagnosis A. GALLBLADDER, CHOLECYSTECTOMY: - Chronic cholecystitis with cholelithiasis 11/04/2022 10:55 [facility] Attestation There was significant resident/fellow involvement in the diagnostic evaluation of this case. By the signature below, the attending physician certifies that they have personally conducted a gross and/or microscopic examination of the described specimens and rendered or confirmed the above diagnosis. 11/04/2022 10:55 [facility] at 1055 Clinical History Cholelithiasis 11/04/2022 10:55 [facility] Gross Description A. Received in [...] measuring 0.3 cm in greatest dimension. Two health and safety representative sections and the en face cystic duct margin are submitted in A1. Adriane Carranza MD 10/31/2022 15:28 11/04/2022 10:55 [facility] Resident/Abhijeet w: Adriane Carranza MD 11/04/2022 10:55 [facility] Performing Lab [facility] 11/04/2022 10:55 [facility] Scanned Images 11/04/2022 10:55 [facility] Tissue ENTIRE GALLBLADDER / Unknown 10/30/2022 8:32 EST 10/31/2022 7:42 EST us Tamir Pride MD PATHOLOGY ORDERABLES Fin al Result [facility] [address] [place] [address] documented in this encounter Visit Diagnoses Diagnosis Encounter for other general examination documented in this encounter Care Teams Manager Mobility Relationship Specialty Start Date End Date Kenia Devine MD [address] [place] [address] [place] [phone] PCP - General Family Medicine - Hospital Medicine 10/22/22 documented as of this encounter
--- OUTSIDE RECORDS SUMMARY | 2024-10-14 13:12 | XMS_ITS | Encounter Summary ---
Author Organization [facility] Address [address] [place] [address] Care Team Providers Care Seed Cleaning Machine Operator Name Role Phone Kenia Devine MD Primary Care Provide r Reason for Visit * Reason Onset Date Comments Follow-up 10/28/2022 Encounter Details Date Type Department Care Team (Late st Contact Info) Description 10/28/[address] [facility] Gastroenterology - [facility] [address] [place] [address] Najma Freeman, RN [address] [place] [address] Follow-up Social History Tobacco Use Types Packs/Day [...] Encounter - Najma Freeman, RN - 10/28/2022 8917 EST Order for amitriptyline sent to [place] pharmacy, patient is aware. documented in this encounter Plan of Treatment Not on file documented as of this encounter Visit Diagnoses Not on filedocumented in this encounter Care Teams Seed Cleaning Machine Operator Relationship Specialty Start Date End Date Kenia Devine MD [address] [place] [phone] PCP - General Family Medicine - [facility] 10/22/22 documented as of this encounter
--- OUTSIDE RECORDS SUMMARY | 2024-10-14 13:12 | XMS_ITS | Encounter Summary ---
Author Organization [facility] Address [address] [place] [address] Care Team Providers Care Business Services Clerk Name Role Phone Kenia Devine MD Primary Care Provide r Reason for Visit * Reason Onset Date Comments Appointment Related 04/15/2023 Encounter Details Date Type Department Care Team (Late st Contact Info) Description 04/15/2023 Telephone [facility] Gastroenterology - [address] [phone] Bhavana Lopez STRATEGIC MANAGER [address] [facility], [address] [place] [address] Appointment Related Social History Tobacco [...] on filedocumented in this encounter Care Teams Business Services Clerk Relationship Specialty Start Date End Date Kenia Devine MD [address] [place] [address] [place] [phone] PCP - General Family Medicine - Hospital Medicine 10/22/22 documented as of this encounter
--- OUTSIDE RECORDS SUMMARY | 2024-10-14 13:12 | XMS_ITS | Encounter Summary ---
Author Organization [facility] Address [address] [place] [address] Care Team Providers Care Stone Rubber Name Role Phone Kenia Devine MD Primary Care Provide r Encounter Details Date Type Department Care Team (Late st Contact Info) Description 05/26/2023 Lab Requisition [facility] Pathology & Laboratory Medicine - [address] [address] Outr Resulting Lab, Provider Social History Tobacco [...] SERA Interpretation Positive(A) Negative 05/29/2023 14:[address] [facility] Comment: For titers greater [...] Pattern 1 1:80 Homogeneous 05/29/2023 14:[address] [facility] SERA Titer and Pattern 2 1:160 Speckled 05/29/2023 14:[address] [facility] Blood VENOUS BLOOD / Unknown 05/26/2023 16:21 EDT 05/27/2023 21:[address] [facility] - 05/29/2023 14:54 EDT Results were obtained with the [employer] NOVA Lite HEp-2 SERA Kit by indirect immunofluorescence. us Provider Outr Resulting Lab IMMUNOLOGY AND SEROL OGY ORDERABLES Final Result Performing Organization Address [facility] Co de Phone Number [facility] [address] [place] [address] * LYME AB (05/26/2023 16:21 EDT) Pathologist [facility] Lyme Ab Negative Negative 05/28/2023 10:[address] [facility] Blood VENOUS BLOOD / Unknown 05/26/2023 16:21 EDT 05/27/2023 21:16 EDT us Provider Outr Resulting Lab IMMUNOLOGY AND SEROL OGY ORDERABLES Final Result Performing Organization Address [facility] Co de Phone Number [facility] [address] [place] [address] * ANTI DNA (DOUBLE STRANDED) (05/26/2023 16:21 EDT) Pathologist [facility] Anti-DNA (Double Stranded) 24.8 <30.0 IU/mL 05/29/2023 15:[address] [facility] Comment: ? Negative: ??<30.0 IU/mL ? Borderline Positive: ??30.0 - 75.0 IU/mL ? Positive: ??>75.0 IU/mL Results were obtained with the [employer] Lite dsDNA SC YOSEF assay on the [employer] DSX. Blood VENOUS BLOOD / Unknown 05/26/2023 16:21 EDT 05/27/2023 21:16 EDT us Provider Outr Resulting Lab IMMUNOLOGY AND SEROL OGY ORDERABLES Final Result Performing Organization Address City/State/[facility] Co de Phone Number [facility] [address] [place] [address] documented in this encounter Visit Diagnoses Not on filedocumented in this encounter Care Teams Stone Rubber Relationship Specialty Start Date End Date Kenia Devine MD [address] [place] [address] [place] [phone] PCP - General Family Medicine - Hospital Medicine 10/22/22 documented as of this encounter
[2024-10-14 22:01] LABS: PSA, Diagnostic 0.3 ng/mL (<=4.5)
== END 2024-10-14 13:03 | disposition home or self-care (01) ==
LOC: LBO 13:06
PROVIDERS: PCP Family Medicine; Referring Provider Urology; Visit Provider Urology
DX: C61 Malignant neoplasm of prostate (principal)
CPT/HCPCS: 36415; 84153